=== PATIENT | female | born 1950 | race Caucasian/White ===

== ENCOUNTER 2022-08-07 13:48 | Outpatient (OUT) | payer MEDICARE, OTHER, SELFPAY ==
--- NOTE | 2022-08-07 14:36 | CA_ITS ---
Patient: LEO DIANE Exam Date: 08/07/2022 : 1950 Gender:F Ordering : JIMI THOMPSON Admission #: Family : Order #: [id number] CLICK HERE TO VIEW EXAM ECHOCARDIOGRAM REPORT PROCEDURE: CARDIO PULMONARY ECHO LIMITED STUDY INDICATIONS: CHF, pacemaker COMPARISON: None. DESCRIPTION: Limited ECHOCARDIOGRAM Real-time transthoracic echocardiography with 2D and M-mode performed. QUALITY: Technical quality was good. LEFT VENTRICLE: Normal chamber size. Mild concentric left ventricular hypertrophy. LV EF: Normal left ventricular ejection fraction, (>55%). DIASTOLIC: ATRIAL SEPTUM: LEFT ATRIUM: Severe dilatation. RIGHT ATRIUM: Moderate dilatation. RIGHT VENTRICLE: Mild dilatation. Normal systolic function. Pacer wire present. TRICUSPID VALVE: Normal mobility and thickness. MITRAL VALVE: Mildly thickened with normal mobility. There is no mitral annular calcification. AORTIC VALVE: Normal trileaflet appearance. Mildly calcified aortic valve. Mildly restricted leaflet mobility. AORTIC ROOT: Normal diameter and appearance. PULMONIC VALVE: Normal thickness and mobility. PERICARDIUM: No evidence of pericardial effusion. IVC: PLEURA: CONCLUSION: 1. Mild concentric left ventricular hypertrophy with normal systolic function. LVEF is 60-65%. 2. The right ventricle is mildly dilated with normal systolic function. 3. Moderate to severe biatrial dilatation. 4. No pericardial effusion. 5. Limited study performed with no Doppler interrogation, as requested. Adult Echocardiography Procedure Report Left Ventricle LVEDD (3.7 - 5.6 cm): 4.66 cm LVESD (2.2 - 4.0 cm): 3.08 cm LVIVS thickness (0.6 - 1.2 cm): 1.29 cm LVPW thickness (0.5 - 1.0 cm): 1.29 cm LVOT Diameter 2.10 cm Left Ventricular Ejection Fraction: 60-65 % Left Atrium LA Volume Index (2D A2C): 56080 mm3 Left Atrium Systolic Dimension: 4.80 cm Mitral Valve Right Ventricle Aorta AO Root Diam: 3.20 cm Aortic Valve Tricuspid Valve Pulmonic Valve Right Atrium Dictated by: Charly Lofton M.D. on 08/08/2022 at 17:33 Approved by: Charly Lofton M.D. on 08/08/2022 at 17:37
== END 2022-08-07 13:49 | disposition home or self-care (01) ==
LOC: CARD 13:48
PROVIDERS: PCP Family Medicine
DX: I50.41 Acute combined systolic (congestive) and diastolic (congestive) heart failure (principal)
CPT/HCPCS: 93308

== ENCOUNTER 2023-04-13 10:21 | Emergency (ER) | payer MEDICARE, OTHER, SELFPAY ==
[2023-04-13 10:28] VITALS: BP 162/97; PULSE 71; RESP 16; TEMP 36.6; O2SAT 96; BMI 27.8
--- OUTSIDE RECORDS SUMMARY | 2023-04-13 10:28 | XMS_ITS | CCD ---
Author Name Unknown Address [id number] [place] [address] Organization [facility] Care Team Providers Care Pantograph Operator Name Role Phone HOUSE, SR TY P Referring Unavailable HOUSE, SR TY Morel Primary Care Unavailable HOUSE, SR TY Morel Referring Unavailable HOUSE, SR TY Morel Primary Care Unavailable Joaquín Maria Unavailable Viviana Williamson Unavailable REGINO HERNADEZ Admitting Unavailable HOUSE, TY Referring Unavailable HOUSE, TY Primary Care Unavailable REGINO HERNADEZ Attending Unavailable HOUSE, TY Referring Unavailable HOUSE, TY Primary Care Unavailable REGINO HERNADEZ Attending Unavailable REGINO HERNADEZ Admitting Unavailable HOUSE, DR CARDONA Admitting Unavailable HOUSE, DR CARDONA Attending Unavailable HOUSE, DR CARDONA Primary Care Unavailable HOUSE, DR CARDONA Consulting Unavailable JIMI THOMPSON Admitting Unavailable JIMI THOMPSON Attending Unavailable HOUSE, DR CARDONA Primary Care Unavailable JIMI THOMPSON Consulting Unavailable REGINO HERNADEZ Admitting Unavailable REGINO HERNADEZ Attending Unavailable HOUSE, DR CARDONA Primary Care Unavailable REGINO HERNADEZ Consulting Unavailable ELANA ESTES Admitting Unavailable HOUSE, DR CARDONA Attending Unavailable HOUSE, DR CARDONA Primary Care Unavailable JACI MARSH Admitting Unavailable JACI MARSH Attending Unavailable HOUSE, DR CARDONA Primary Care Unavailable JACI MARSH Consulting Unavailable JACI MARSH Admitting Unavailable JACI MARSH Attending Unavailable HOUSE, DR CARDONA Primary Care Unavailable JACI MARSH Consulting Unavailable SALMA, JACI Admitting Unavailable JACI MARSH Attending Unavailable HOUSE, DR CARDONA Primary Care Unavailable JACI MARSH Consulting Unavailable HOUSE, DR CARDONA Primary Care Unavailable WHITT ., DR BRITTNY Chavez Admitting Unavailable WHITT ., DR BRITTNY Chavez Attending Unavailable WHITT ., DR BRITTNY Chavez Consulting Unavailable SHAIKH Naty LOJA Consulting Unavailable MED TUTTLE Consulting Unavailable ANNITA BRAN Consulting Unavailable SIXTO ., BISI Consulting Unavailable REGINO HERNADEZ Admitting Unavailable REGINO HERNADEZ Attending Unavailable DR TY THOMAS Primary Care Unavailable REGINO HERNADEZ Consulting Unavailable HALIE NICK Consulting Unavailable DO Ty Thomas Primary Care Provider MD Joaquín Maria Attending Provider MD Med Briggs Attending Provider NON STAFF Primary Care Provider UnavailMed Cunningham Unavailable Unavailable Primary Care Provider UnavailMed Cunningham Attending Unavailable NON STAFF Primary Care Unavailable Med Briggs Admitting Unavailable Ty Thomas Primary Care Unavailable Joaquín Maria Admitting Unavailable Joaquín Maria Attending Unavailable REGINO HERNADEZ Admitting Unavailable REGINO HERNADEZ Attending Unavailable JIMI THOMPSON Attending Unavailable JIMI THOMPSON Attending Unavailable JIMI THOMPSON Attending Unavailable JIMI THOMPSON Attending Unavailable REGINO HERNADEZ Referring Unavailable JEIR, REGINO Referring Unavailable JERI, REGINO Referring Unavailable ELIAS DOMINGO Attending Unavailable MED BRIGGS Referring Unavailable Allergies Allergy Classification Reported Allergen(s) Allergy Type Date of Onset Reaction(s) Facility (20 sources) Amiodarone Drug Allergy rash [facility] Other (20 sources) penicillAMINE Drug Allergy Unknown [facility] Other (3 sources) Penicillins; Translations: [PENICILLINS] Drug allergy (disorder) 6 [facility] Repository (1 source) Leucine Drug Allergy 7 [facility] Repository (1 source) Amiodarone Drug Allergy 4 [facility] Repository (1 source) penicillAMINE Drug Allergy 4 [facility] Medications Current Medications Medication Drug Class(es) Dates Sig (Normalized) Sig (Original) cholecalciferol 0.25 mg oral capsule (9 sources) Vitamin D Vitamin D3 250 M CG (08381 UT) as directed Orally Active dapagliflozin 10 mg oral tablet (7 sources) Sodium-Glucose Cotransporter 2 Inhibitor take 1 tablet by mouth every twenty-four hours Farxiga 10 MG 1 tablet Orally Once a day Dapagliflozin Active 24 hr dilTIAZem hydrochloride 360 mg extended release oral capsule (19 sources) Calcium Channel Tomas take 1 capsule by mouth every twenty-four hours dilTIAZem HCl ER Coated Beads 360 MG 1 capsule Orally Once a day Active 2 ml dupilumab 150 mg/ml auto-injector (2 sources) Interleukin-4 Receptor alpha Antagonist Dupixent 300 MG/2ML Subcutaneous for 28 Days Active Echinacea 400 MG (16 sources) Echinacea 400 MG as directed Orally Active furosemide 40 mg oral tablet (20 sources) Loop Diuretic take 1 tablet by mouth every twelve hours Furosemide 40 MG 1 tablet Orally BID Active take 1 tablet by alex th every twenty-four hours Furosemide 20 MG 1 tablet Orally qd Active Iron (16 sources) take 1 tablet by mouth once john y at mealtime take 1 tablet by alex th once daily at mealtime Iron 240 (27 Fe) MG 1 tablet with water or juice between meals Orally Once a day Active lisinopril 20 mg oral tablet (20 sources) Angiotensin Converting Enzyme Inhibitor take 1 tablet by mouth every twelve hours Lisinopril 20 MG 1 tablet Orally BID Active take 1 tablet by alex th every twenty-four hours Lisinopril 20 MG 1 tablet Orally Once a day Active magnesium oxide 400 mg oral tablet (10 sources) take 1 tablet by alex th every twenty-four hours Magnesium Oxide 400 MG 1 tablet Orally Once a day Active take 1 tablet by alex th every twelve hours Magnesium Oxide 400 MG 1 tablet Orally B ID Active 24 hr metoprolol succinate 100 mg extended release oral tablet (20 sources) beta-Adrenergic Tomas take 1 tablet by mouth every twenty-four hours Metoprolol Succinate ER 100 MG 1 tablet Orally Once a day Active take 1.5 tablets by mouth every twenty-four hours Metoprolol Succinate ER 100 MG 1.5 table t Orally Once a day Not-Taking potassium chloride 20 meq extended release oral tablet (10 sources) take 1 tablet by alex th every twelve hours Potassium Chloride ER 20 MEQ 1 tablet with food Orally Twice a day Active take 1 tablet by mouth every six hours Potassium Chloride ER 20 MEQ 1 tablet with food Orally QID Active rivaroxaban 20 mg oral tablet (20 sources) Factor Xa Inhibitor take 1 tablet by mouth every twenty-four hours Xarelto 20 MG 1 tablet with food Orally Once a day Rivaroxaban Active Semaglutide Sodium 0.3 mg/ 0.25 mL 0.25 mL (4 sources) Start: 09-19-19 23 Semaglutide Sodium 0.3 mg/ 0.25 mL 0.25 mL 0.25 mL Injection Once for 7 days Sep, Active Semaglutide Sodium 0.6 mg/ 0.5 mL 0.5 mL (2 sources) Start: 01-10-20 23 Semaglutide Sodium 0.6 mg/ 0.5 mL 0.5 mL 0.5 mL Injection 7 days Dec, Active 24 hr venlafaxine 150 mg extended release oral capsule (20 sources) Serotonin and Norepinephrine Reuptake Inhibitor take 1 capsule by mouth every twenty-four hours Venlafaxine HCl ER 150 MG 1 capsule with food Orally Once a day Active Louann-C (8 sources) Louann-C Active Vitamin B12 1000 MCG (16 sources) take 1 tablet by mouth once daily take 1 tablet by mouth once john y Vitamin B12 1000 MCG 1 tablet Orally Once a day Active Vitamin D3 250 MCG (97995 UT ) (7 sources) Vitamin D3 250 M CG (44992 UT) as directed Orally Active Completed/Discontinued Medications Medication Drug Class(es) Dates Sig (Normalized) Sig (Original) 0.25 mg, 0.5 mg dose 1.5 ml semaglutide 1.34 mg/ml pen injector (16 sources) Start: 08-23-2021 Ozempic (0.25 or 0.5 MG/DOSE) 2 MG/1.5ML 0.5 mg Subcutaneous weekly for 30 days Aug, Not-Taking Ozempic (0.25 or 0.5 MG/DOSE) 2 MG/1.5ML as directed Subcutaneous weekly for 30 days Not-Taking Problems Active Problems Problem Classification Problem Date Documented Da te Episodic/Chronic Cardiac dysrhythmias (20 sources) Atrial fibrillation; Translations: [Unspecified atrial fibrillation] Onset: 04-09-2021 Resolved: 09-27-2021 Chronic Chronic kidney disease (20 sources) Chronic kidney disease; Translations: [Chronic kidney disease, unspecified] Onset: 04-09-2021 Resolved: 09-27-2021 Chronic Conduction disorders (10 sources) Presence of cardiac pacemaker; Translations: [Cardiac pacemaker in situ] Onset: 01-22-2022 Chronic Congestive heart failure; nonhypertensive (18 sources) Acute on chronic systolic (congestive) heart failure; Translations: [Heart failure, unspecified] Onset: 03-28-2022 Chronic Diabetes mellitus without complication (9 sources) Prediabetes Onset: 05-15-2021 Resolved: 09-27-2021 Episodic Disorders of lipid metabolism (20 sources) Hypercholesterolemi a; Translations: [Pure hypercholesterolemi a, unspecified] Onset: 05-15-2021 Resolved: 09-27-2021 Chronic Essential hypertension (20 sources) Hypertensive disorder; Translations: [Essential (primary) hypertension] Onset: 04-09-2021 Resolved: 09-27-2021 Chronic Fluid and electrolyte disorders (1 source) Hypokalemia; Translations: [HYPOKALEMIA] Onset: 03-28-2022 Episodic Heart valve disorders (5 sources) Nonrheumatic mitral (valve) insufficiency; Translations: [Rheumatic tricuspid insufficiency] Onset: 08-19-2021 Chronic Hypertension with complications and secondary hypertension (3 sources) Hypertensive heart disease with heart failure; Translations: [HTN HEART DISEASE W/HEART FAIL] Onset: 03-22-2022 Chronic Mood disorders (20 sources) Major depression, single episode; Translations: [Major depressive disorder, single episode, unspecified] Onset: 04-09-2021 Resolved: 09-27-2021 Chronic Mood disorders (1 source) Mood disorders; Translations: [DEPRESSION UNSPECIFIED] Onset: 03-28-2022 Other aftercare (1 source) Other fci (current) drug therapy; Translations: [OTH RETIREMENT CURRENT DRUG THERAPY] Onset: 03-28-2022 Episodic Other aftercare (1 source) 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; Translations: [RETIREMENT CURRNT USE ANTICOAGULANTS] Onset: 03-28-2022 Episodic Other liver diseases (20 sources) Steatosis of liver; Translations: [Fatty (change of) liver, not elsewhere classified] Chronic Other liver diseases (11 sources) Fatty (change of) liver, not elsewhere classified; Translations: [FATTY CHANGE LIVER NEC] Onset: 04-09-2021 Resolved: 09-27-2021 Chronic Other lower respiratory disease (14 sources) Snoring; Translations: [SNORING] Onset: 04-09-2021 Resolved: 09-27-2021 Episodic Other lower respiratory disease (1 source) Hypoxemia; Translations: [HYPOXEMIA] Onset: 03-28-2022 Episodic Other non-traumatic joint disorders (3 sources) Pain in right wrist; Translations: [Pain in right wrist] Onset: 06-05-2018 Episodic Other nutritional; endocrine; and metabolic disorders (20 sources) Obese class I; Translations: [Body mass index (BMI) 33.0-33.9, adult] Chronic Other nutritional; endocrine; and metabolic disorders (20 sources) Metabolic syndrome X; Translations: [Metabolic syndrome] Chronic Other nutritional; endocrine; and metabolic disorders (1 source) Body mass index (BMI) 33.0-33.9, adult Onset: 04-09-2021 Resolved: 04-09-2021 Chronic Other nutritional; endocrine; and metabolic disorders (10 sources) Metabolic syndrome Onset: 04-09-2021 Resolved: 09-27-2021 Chronic Other nutritional; endocrine; and metabolic disorders (20 sources) Obesity; Translations: [Obesity, unspecified] Chronic Other nutritional; endocrine; and metabolic disorders (20 sources) Body mass index 40+ - severely obese; Translations: [Body mass index (BMI) 40.0-44.9, adult] Chronic Other nutritional; endocrine; and metabolic disorders (13 sources) Obesity, unspecified; Translations: [Obesity, unspecified] Onset: 04-19-2021 Resolved: 09-27-2021 Chronic Other nutritional; endocrine; and metabolic disorders (6 sources) Body mass index (BMI) 32.0-32.9, adult Onset: 04-19-2021 Resolved: 08-16-2021 Chronic Other nutritional; endocrine; and metabolic disorders (19 sources) Body mass index 30+ - obesity; Translations: [Body mass index (BMI) 32.0-32.9, adult] Chronic Other nutritional; endocrine; and metabolic disorders (1 source) Hypomagnesemia; Translations: [HYPOMAGNESEMIA] Onset: 03-28-2022 Chronic Other nutritional; endocrine; and metabolic disorders (4 sources) Binging; Translations: [Polyphagia] Episodic Other nutritional; endocrine; and metabolic disorders (20 sources) Polyphagia; Translations: [Binge eating] Onset: 04-09-2021 Resolved: 09-27-2021 Episodic Other nutritional; endocrine; and metabolic disorders (3 sources) Overweight Episodic Other nutritional; endocrine; and metabolic disorders (1 source) Body mass index (BMI) 29.0-29.9, adult Episodic Alina-; endo-; and myocarditis; cardiomyopathy (except that caused by tuberculosis or sexually transmitted disease) (1 source) Other cardiomyopathies; Translations: [OTHER CARDIOMYOPATHIES] Onset: 03-28-2022 Chronic Residual codes; unclassified (6 sources) Obstructive sleep apnea (adult) (pediatric); Translations: [OBSTRUCTIVE SLEEP APNEA] Onset: 10-09-2021 Chronic Residual codes; unclassified (2 sources) Obstructive sleep apnea syndrome; Translations: [Obstructive sleep apnea (adult) (pediatric)] Chronic Residual codes; unclassified (2 sources) Sleep apnea; Translations: [Sleep apnea, unspecified] Chronic Residual codes; unclassified (1 source) Obstructive sleep apnea (adult)(pediatric); Translations: [Obstructive sleep apnea (adult) (pediatric)] Onset: 03-04-2023 Chronic Residual codes; unclassified (1 source) Acquired absence of other specified parts of digestive tract; Translations: [ACQ ABSENCE OTH PART DIGESTV TRACT] Onset: 03-28-2022 Episodic Residual codes; unclassified (1 source) Other specified health status Episodic Screening and history of mental health and substance abuse codes (1 source) Personal history of nicotine dependence; Translations: [PERSONAL HISTORY OF NICOTINE DEPEND] Onset: 03-28-2022 Episodic Unclassified (1 source) CONTACT W/AND (SUSP) EXPOS COVID-19; Translations: [CONTACT W/AND (SUSP) EXPOS COVID-19] Onset: 03-28-2022 Unclassified (1 source) Longstanding persistent atrial fibrillation; Translations: [LONGSTNDNG PERSIST ATRIAL FIBRILLTN] Onset: 03-28-2022 Past or Other Problems Problem Classification Problem Date Documented Da te Episodic/Chronic Malaise and fatigue (1 source) Other fatigue; Translations: [OTHER FATIGUE] Onset: 09-08-2021 Episodic Results Test Name Value Interpretation Reference Range Facility Office Visiton 03-25-2023 Follow-up visit [id number] Penny Diane 1950 F Date Provider Department Center 03/25/2023 Lara6-JIMI THOMPSON CARD [facility] Family History Problem Relation Age of Onset Hypertension Mother Family Status - Relation Status Age at Mother Level of Service:67388 [place] OFFICE/OUTPATIENT ESTABLISHED MOD MDM 30 MIN [facility] Office Visiton 08-21-2022 Follow-up visit [id number] Penny Diane 1950 F Date Provider Department Center 08/21/2022 JIMI VIRGEN Family History Problem Relation Age of Onset Hypertension Mother Family Status - Relation Status Age at Mother Level of Service:30575 [place] OFFICE/OUTPATIENT ESTABLISHED MOD MDM 30-39 MIN Reason for Visit and Comments: Follow-up [400075] - 2 month follow up [facility] A1C HEMOGLOBINon 08-06-2022 HbA1c (Bld) [Mass fraction] 5.4 % [facility] Other HbA1c (Bld) [Mass fraction]o n 08-06-2022 A1C HEMOGLOBIN [facility] Other Office Visiton 06-19-2022 Follow-up visit [id number] Penny Diane 1950 Date Provider Department Center 06/19/2022 JIMI VIRGEN Family History Problem Relation Age of Onset Hypertension Mother Family Status - Relation Status Age at Mother Level of Service:18360 [place] OFFICE/OUTPATIENT ESTABLISHED MOD MDM 30-39 MIN [facility] PROF CHEM 8 (BAS METB)on Anion gap [Moles/Vol] 11.7 mmol/L Normal [facility] Comment on above: Performed By: #### B MP #### [facility] [address] [place] [address] Dr. Baldemar Rodriguez Calcium [Mass/Vol] 9.3 mg/dL Normal 8.5-10.1 [facility] Comment on above: Performed By: #### B MP #### [facility] [address] [address] [address] Baldemar Rodriguez Chloride [Moles/Vol] 106 mmol/L Normal 98-107 [facility] Comment on above: Performed By: #### B MP #### [facility] [address] [address] [address] Baldemar Rodriguez CO2 [Moles/Vol] 31.2 mmol/L Normal 21.0-32.0 [facility] Comment on above: Performed By: #### B MP #### [facility] [address] [address] [address] Baldemar Rodriguez Creatinine [Mass/Vol] 0.92 mg/dL Normal 0.55-1.02 [facility] Comment on above: Performed By: #### B MP #### [facility] [address] [address] [address] Baldemar Rodriguez EGFR-AF BRITISH >60 Normal >=60 [facility] Comment on above: Performed By: #### B MP #### [facility] [address] [address] [address] Baldemar Rodriguez EGFR-NON AF BRITISH =60 Normal >=60 [facility] Comment on above: Performed By: #### B MP #### [facility] [address] [address] [address] Baldemar Rodriguez Glucose [Mass/Vol] 96 mg/dL Normal 74-106 [facility] Comment on above: Performed By: #### B MP #### [facility] [address] [address] [address] Baldemar Rodriguez Potassium [Moles/Vol] 3.9 mmol/L Normal 3.5-5.1 [facility] Comment on above: Performed By: #### B MP #### [facility] [address] [address] [address] Baldemar Rodriguez Sodium [Moles/Vol] 145 mmol/L Normal 136-145 [facility] Comment on above: Performed By: #### B MP #### [facility] [address] [address] [address] Baldemar Rodriguez Urea nitrogen [Mass/Vol] 13.0 mg/dL Normal 7.0-18.0 [facility] Comment on above: Performed By: #### B MP #### [facility] [address] [address] [address] Baldemar Rodriguez Urea nitrogen/Creatinine [Mass ratio] 14.1 mg/mg Normal [facility] Comment on above: Performed By: #### B MP #### [facility] [address] [address] [address] Baldemar Rodriguez 36on 04-24-2022 36 Patient can try benadryl, if no relief or she begins to experience SOB, tongue swelling, throat swelling, scratchy throat then should report to ED [facility] 36 Patient called c/o red face and neck. Says they itch, no sores. She had AV node ablation 2 days ago, on 04/22. She said she hasn't started any new medications recently. No SOB. Any advice? Thanks. [facility] HPon 04-22-2022 HP H&P reviewed. The patient was examined and there are no changes to the H&P. [facility] Office Visiton 04-19-2022 Follow-up visit [id number] Penny Diane 1950 F Date Provider Department Center 04/19/2022 JIMI VIRGEN [facility] Family History Problem Relation Age of Onset Hypertension Mother Family Status - Relation Status Age at Mother Level of Service:38580 [place] OFFICE/OUTPATIENT ESTABLISHED MOD MDM 30-39 MIN Reason for Visit and Comments: Atrial Fibrillation [80] [facility] PROF CHEM 8 (BAS METB)on Anion gap [Moles/Vol] 8.8 mmol/L Normal [facility] Comment on above: Performed By: #### B MP #### [facility] [address] [address] [address] Baldemar Rodriguez Calcium [Mass/Vol] 9.5 mg/dL Normal 8.5-10.1 [facility] Comment on above: Performed By: #### B MP #### [facility] [address] [address] [address] Baldemar Rodriguez Chloride [Moles/Vol] 103 mmol/L Normal 98-107 [facility] Comment on above: Performed By: #### B MP #### [facility] [address] [address] [address] Baldemar Rodriguez CO2 [Moles/Vol] 32.5 mmol/L Critically high 21.0-32.0 [facility] Comment on above: Performed By: #### B MP #### [facility] [address] [address] [address] Baldemar Rodriguez Creatinine [Mass/Vol] 0.92 mg/dL Normal 0.55-1.02 [facility] Comment on above: Performed By: #### B MP #### [facility] [address] [address] [address] Baldemar Rodriguez EGFR-AF BRITISH >60 Normal >=60 [facility] Comment on above: Performed By: #### B MP #### [facility] [address] [address] [address] Baldemar Rodriguez EGFR-NON AF BRITISH =60 Normal >=60 [facility] Comment on above: Performed By: #### B MP #### [facility] [address] [address] [address] Baldemar Rodriguez Glucose [Mass/Vol] 79 mg/dL Normal 74-106 [facility] Comment on above: Performed By: #### B MP #### [facility] [address] [address] [address] Baldemar Rodriguez Potassium [Moles/Vol] 4.3 mmol/L Normal 3.5-5.1 [facility] Comment on above: Performed By: #### B MP #### [facility] [address] [address] [address] Baldemar Rodriguez Sodium [Moles/Vol] 140 mmol/L Normal 136-145 [facility] Comment on above: Performed By: #### B MP #### [facility] [address] [address] [address] Baldemar Rodriguez Urea nitrogen [Mass/Vol] 19.0 mg/dL Critically high 7.0-18.0 [facility] Comment on above: Performed By: #### B MP #### [facility] [address] [address] [address] Baldemar Rodriguez Urea nitrogen/Creatinine [Mass ratio] 20.7 mg/mg Normal [facility] Comment on above: Performed By: #### B MP #### [facility] [address] [address] [address] Baldemar Rodriguez CBC AUTO DIFFon 03-26-2022 BASO # 0.0 103/ul Normal 0.0-0.1 [facility] Comment on above: Performed By: #### B MP #### [facility] [address] [place] [address] Dr. Baldemar Rodriguez Basophils/100 WBC (Bld) 0.6 % Normal 0.2-2.0 [facility] Comment on above: Performed By: #### B MP #### [facility] [address] [place] [address] Dr. Baldemar Rodriguez EO # 0.3 103/ul Normal 0.0-0.7 [facility] Comment on above: Performed By: #### B MP #### [facility] [address] [place] [address] Dr. Baldemar Rodriguez Eosinophils/100 WBC (Bld) 4.7 % Normal 0.9-7.0 [facility] Comment on above: Performed By: #### B MP #### [facility] [address] [place] [address] Dr. Baldemar Rodriguez Erythrocyte distribution width (RBC) [Ratio] 14.7 % Normal 11.0-15.0 [facility] Comment on above: Performed By: #### B MP #### [facility] [address] [place] [address] Dr. Baldemar Rodriguez Hematocrit (Bld) [Volume fraction] 39.6 % Normal 36.0-48.0 [facility] Comment on above: Performed By: #### B MP #### [facility] [address] [place] [address] Dr. Baldemar Rodriguez Hemoglobin (Bld) [Mass/Vol] 12.8 g/dL Normal 12.0-16.0 [facility] Comment on above: Performed By: #### B MP #### [facility] [address] [place] [address] Dr. Baldemar Rodriguez IG # 0.02 10e3/ul Normal 0.00-0.03 [facility] Comment on above: Performed By: #### B MP #### [facility] [address] [place] [address] Dr. Baldemar Rodriguez IG % 0.3 % Normal 0.0-0.5 [facility] Comment on above: Performed By: #### B MP #### [facility] [address] [place] [address] Dr. Baldemar Rodriguez LYMPH # 2.3 103/ul Normal 1.2-3.8 [facility] Comment on above: Performed By: #### B MP #### [facility] [address] [place] [address] Dr. Baldemar Rodriguez Lymphocytes/100 WBC (Bld) 33.9 % Normal 20.5-60.0 [facility] Comment on above: Performed By: #### B MP #### [facility] [address] [place] [address] Dr. Baldemar Rodriguez MANUAL DIFF REQ NO Normal [facility] Comment on above: Performed By: #### B MP #### [facility] [address] [place] [address] Dr. Baldemar Rodriguez MCH (RBC) [Entitic mass] 30.0 pg Normal 26.7-34.0 [facility] Comment on above: Performed By: #### B MP #### [facility] [address] [place] [address] Dr. Baldemar Rodriguez MCHC (RBC) [Mass/Vol] 32.3 g/dL Normal 29.9-35.2 [facility] Comment on above: Performed By: #### B MP #### [facility] [address] [place] [address] Dr. Baldemar Rodriguez MCV (RBC) [Entitic vol] 92.7 fL Normal 81.0-99.0 [facility] Comment on above: Performed By: #### B MP #### [facility] [address] [place] [address] Dr. Baldemar Rodriguez MONO # 0.6 103/ul Normal 0.3-0.8 [facility] Comment on above: Performed By: #### B MP #### [facility] [address] [place] [address] Dr. Baldemar Rodriguez Monocytes/100 WBC (Bld) 8.7 % Normal 1.7-12.0 [facility] Comment on above: Performed By: #### B MP #### [facility] [address] [place] [address] Dr. Baldemar Rodriguez NEUT # 3.4 103/ul Normal 1.4-6.5 [facility] Comment on above: Performed By: #### B MP #### [facility] [address] [place] [address] Dr. Baldemar Rodriguez Neutrophils/100 WBC (Bld) 51.8 % Normal 43.0-75.0 [facility] Comment on above: Performed By: #### B MP #### [facility] [address] [place] [address] Dr. Baldemar Rodriguez Platelet mean volume (Bld) [Entitic vol] 9.6 fL Normal 9.5-13.5 [facility] Comment on above: Performed By: #### B MP #### [facility] [address] [place] [address] Dr. Baldemar Rodriguez PLT 233 103/ul Normal 150-450 [facility] Comment on above: Performed By: #### B MP #### [facility] [address] [place] [address] Dr. Baldemar Rodriguez RBC 4.27 106/ul Normal 4.20-5.40 [facility] Comment on above: Performed By: #### B MP #### [facility] [address] [place] [address] Dr. Baldemar Rodriguez WBC 6.6 103/ul Normal 4.0-11.0 [facility] Comment on above: Performed By: #### B MP #### [facility] [address] [place] [address] Dr. Baldemar Rodriguez PROF CHEM 8 (BAS METB)on Anion gap [Moles/Vol] 9.2 mmol/L Normal [facility] Comment on above: Performed By: #### B MP #### [facility] [address] [place] [address] Dr. Baldemar Rodriguez Calcium [Mass/Vol] 9.2 mg/dL Normal 8.5-10.1 [facility] Comment on above: Performed By: #### B MP #### [facility] [address] [address] [address] Baldemar Rodriguez Chloride [Moles/Vol] 102 mmol/L Normal 98-107 [facility] Comment on above: Performed By: #### B MP #### [facility] [address] [address] [address] Baldemar Rodriguez CO2 [Moles/Vol] 35.8 mmol/L Critically high 21.0-32.0 [facility] Comment on above: Performed By: #### B MP #### [facility] [address] [place] [address] Dr. Baldemar Rodriguez Creatinine [Mass/Vol] 0.91 mg/dL Normal 0.55-1.02 [facility] Comment on above: Performed By: #### B MP #### [facility] [address] [place] [address] Dr. Baldemar Rodriguez EGFR-AF BRITISH >60 Normal >=60 [facility] Comment on above: Performed By: #### B MP #### [facility] [address] [address] [address] Baldemar Rodriguez EGFR-NON AF BRITISH >60 Normal >=60 [facility] Comment on above: Performed By: #### B MP #### [facility] [address] [address] [address] Baldemar Rodriguez Glucose [Mass/Vol] 93 mg/dL Normal 74-106 [facility] Comment on above: Performed By: #### B MP #### [facility] [address] [address] [address] Baldemar Rodriguez Potassium [Moles/Vol] 3.0 mmol/L Critically low 3.5-5.1 [facility] Comment on above: Performed By: #### B MP #### [facility] [address] [address] [address] Baldemar Rodriguez Sodium [Moles/Vol] 144 mmol/L Normal 136-145 [facility] Comment on above: Performed By: #### B MP #### [facility] [address] [address] [address] Baldemar Rodriguez Urea nitrogen [Mass/Vol] 19.0 mg/dL Critically high 7.0-18.0 [facility] Comment on above: Performed By: #### B MP #### [facility] [address] [place] [address] Dr. Baldemar Rodriguez Urea nitrogen/Creatinine [Mass ratio] 20.9 mg/mg Normal [facility] Comment on above: Performed By: #### B MP #### [facility] [address] [place] [address] Dr. Baldemar Rodriguez CBC AUTO DIFFon 03-25-2022 BASO # 0.0 103/ul Normal 0.0-0.1 [facility] Comment on above: Performed By: #### B MP #### [facility] [address] [place] [address] Dr. Baldemar Rodriguez Basophils/100 WBC (Bld) 0.5 % Normal 0.2-2.0 [facility] Comment on above: Performed By: #### B MP #### [facility] [address] [place] [address] Dr. Baldemar Rodriguez EO # 0.3 103/ul Normal 0.0-0.7 [facility] Comment on above: Performed By: #### B MP #### [facility] [address] [place] [address] Dr. Baldemar Rodriguez Eosinophils/100 WBC (Bld) 3.2 % Normal 0.9-7.0 [facility] Comment on above: Performed By: #### B MP #### [facility] [address] [place] [address] Dr. Baldemar Rodriguez Erythrocyte distribution width (RBC) [Ratio] 14.7 % Normal 11.0-15.0 [facility] Comment on above: Performed By: #### B MP #### [facility] [address] [place] [address] Dr. Baldemar Rodriguez Hematocrit (Bld) [Volume fraction] 40.8 % Normal 36.0-48.0 [facility] Comment on above: Performed By: #### B MP #### [facility] [address] [place] [address] Dr. Baldemar Rodriguez Hemoglobin (Bld) [Mass/Vol] 13.4 g/dL Normal 12.0-16.0 [facility] Comment on above: Performed By: #### B MP #### [facility] [address] [place] [address] Dr. Baldemar Rodriguez IG # 0.02 10e3/ul Normal 0.00-0.03 [facility] Comment on above: Performed By: #### B MP #### [facility] [address] [place] [address] Dr. Baldemar Rodriguez IG % 0.2 % Normal 0.0-0.5 [facility] Comment on above: Performed By: #### B MP #### [facility] [address] [place] [address] Dr. Baldemar Rodriguez LYMPH # 2.0 103/ul Normal 1.2-3.8 [facility] Comment on above: Performed By: #### B MP #### [facility] [address] [place] [address] Dr. Baldemar Rodriguez Lymphocytes/100 WBC (Bld) 23.3 % Normal 20.5-60.0 [facility] Comment on above: Performed By: #### B MP #### [facility] [address] [place] [address] Dr. Baldemar Rodriguez MANUAL DIFF REQ NO Normal [facility] Comment on above: Performed By: #### B MP #### [facility] [address] [place] [address] Dr. Baldemar Rodriguez MCH (RBC) [Entitic mass] 30.3 pg Normal 26.7-34.0 [facility] Comment on above: Performed By: #### B MP #### [facility] [address] [place] [address] Dr. Baldemar Rodriguez MCHC (RBC) [Mass/Vol] 32.8 g/dL Normal 29.9-35.2 [facility] Comment on above: Performed By: #### B MP #### [facility] [address] [address] [address] Baldemar Rodriguez MCV (RBC) [Entitic vol] 92.3 fL Normal 81.0-99.0 [facility] Comment on above: Performed By: #### B MP #### [facility] [address] [address] [address] Baldemar Rodriguez MONO # 0.6 103/ul Normal 0.3-0.8 [facility] Comment on above: Performed By: #### B MP #### [facility] [address] [address] [address] Baldemar Rodriguez Monocytes/100 WBC (Bld) 7.5 % Normal 1.7-12.0 [facility] Comment on above: Performed By: #### B MP #### [facility] [address] [place] [address] Dr. Baldemar Rodriguez NEUT # 5.5 103/ul Normal 1.4-6.5 [facility] Comment on above: Performed By: #### B MP #### [facility] [address] [address] [address] Baldemar Rodriguez Neutrophils/100 WBC (Bld) 65.3 % Normal 43.0-75.0 [facility] Comment on above: Performed By: #### B MP #### [facility] [address] [address] [address] Baldemar Rodriguez Platelet mean volume (Bld) [Entitic vol] 9.4 fL Critically low 9.5-13.5 [facility] Comment on above: Performed By: #### B MP #### [facility] [address] [address] [address] Baldemar Rodriguez PLT 258 103/ul Normal 150-450 [facility] Comment on above: Performed By: #### B MP #### [facility] [address] [address] [address] Baldemar Rodriguez RBC 4.42 106/ul Normal 4.20-5.40 [facility] Comment on above: Performed By: #### B MP #### [facility] [address] [address] [address] Baldemar Rodriguez WBC 8.4 103/ul Normal 4.0-11.0 [facility] Comment on above: Performed By: #### B MP #### [facility] [address] [address] [address] Baldemar Rodriguez POTASSIUMon 03-25-2022 Potassium [Moles/Vol] 2.7 mmol/L Critically low 3.5-5.1 [facility] Comment on above: Performed By: #### B MP #### [facility] [address] [address] [address] Baldemar Rodriguez PROF CHEM 8 (BAS METB)on Anion gap [Moles/Vol] 9.8 mmol/L Normal [facility] Comment on above: Performed By: #### B MP #### [facility] [address] [place] [address] Dr. Baldemar Rodriguez Calcium [Mass/Vol] 9.0 mg/dL Normal 8.5-10.1 [facility] Comment on above: Performed By: #### B MP #### [facility] [address] [place] [address] Dr. Baldemar Rodriguez Chloride [Moles/Vol] 100 mmol/L Normal 98-107 [facility] Comment on above: Performed By: #### B MP #### [facility] [address] [place] [address] Dr. Baldemar Rodriguez CO2 [Moles/Vol] 35.8 mmol/L Critically high 21.0-32.0 [facility] Comment on above: Performed By: #### B MP #### [facility] [address] [address] [address] Baldemar Rodriguez Creatinine [Mass/Vol] 0.85 mg/dL Normal 0.55-1.02 [facility] Comment on above: Performed By: #### B MP #### [facility] [address] [place] [address] Dr. Baldemar Rodriguez EGFR-AF BRITISH >60 Normal >=60 [facility] Comment on above: Performed By: #### B MP #### [facility] [address] [address] [address] Baldemar Rodriguez EGFR-NON AF BRITISH >60 Normal >=60 [facility] Comment on above: Performed By: #### B MP #### [facility] [address] [address] [address] Baldemar Rodriguez Glucose [Mass/Vol] 100 mg/dL Normal 74-106 [facility] Comment on above: Performed By: #### B MP #### [facility] [address] [address] [address] Baldemar Rodriguez Potassium [Moles/Vol] 2.5 mmol/L Critically low 3.5-5.1 [facility] Comment on above: Performed By: #### B MP #### [facility] [address] [address] [address] Baldemar oRdriguez Sodium [Moles/Vol] 142 mmol/L Normal 136-145 [facility] Comment on above: Performed By: #### B MP #### [facility] [address] [address] [address] Baldemar Rodriguez Urea nitrogen [Mass/Vol] 15.0 mg/dL Normal 7.0-18.0 [facility] Comment on above: Performed By: #### B MP #### [facility] [address] [place] [address] Dr. Baldemar Rodriguez Urea nitrogen/Creatinine [Mass ratio] 17.6 mg/mg Normal [facility] Comment on above: Performed By: #### B MP #### [facility] [address] [place] [address] Dr. Baldemar Rodriguez CBC AUTO DIFFon 03-24-2022 BASO # 0.0 103/ul Normal 0.0-0.1 [facility] Comment on above: Performed By: #### C JANIE GUNN, BNP #### [facility] [address] [address] [address] Baldemar Rodriguez Basophils/100 WBC (Bld) 0.4 % Normal 0.2-2.0 [facility] Comment on above: Performed By: #### C JANIE GUNN, BNP #### [facility] [address] [place] [address] Dr. Baldemar Rodriguez EO # 0.1 103/ul Normal 0.0-0.7 [facility] Comment on above: Performed By: #### C MP, CMADM, BNP #### [facility] [address] [place] [address] Dr. Baldemar Rodriguez Eosinophils/100 WBC (Bld) 1.2 % Normal 0.9-7.0 [facility] Comment on above: Performed By: #### C MP, CMADM, BNP #### [facility] [address] [place] [address] Dr. Baldemar Rodriguez Erythrocyte distribution width (RBC) [Ratio] 14.9 % Normal 11.0-15.0 [facility] Comment on above: Performed By: #### C MP, CMADM, BNP #### [facility] [address] [place] [address] Dr. Baldemar Rodriguez Hematocrit (Bld) [Volume fraction] 36.3 % Normal 36.0-48.0 [facility] Comment on above: Performed By: #### C MP, CMADM, BNP #### [facility] [address] [place] [address] Dr. Baldemar Rodriguez Hemoglobin (Bld) [Mass/Vol] 11.9 g/dL Critically low 12.0-16.0 [facility] Comment on above: Performed By: #### C MP, CMADM, BNP #### [facility] [address] [place] [address] Dr. Baldemar Rodriguez IG # 0.04 10e3/ul Critically high 0.00-0.03 [facility] Comment on above: Performed By: #### C MP, CMADM, BNP #### [facility] [address] [place] [address] Dr. Baldemar Rodriguez IG % 0.4 % Normal 0.0-0.5 [facility] Comment on above: Performed By: #### C MP, CMADM, BNP #### [facility] [address] [place] [address] Dr. Baldemar Rodriguez LYMPH # 2.5 103/ul Normal 1.2-3.8 [facility] Comment on above: Performed By: #### C MP, CMADM, BNP #### [facility] [address] [place] [address] Dr. Baldemar Rodriguez Lymphocytes/100 WBC (Bld) 22.3 % Normal 20.5-60.0 [facility] Comment on above: Performed By: #### C MP, CMADM, BNP #### [facility] [address] [place] [address] Dr. Baldemar Rodriguez MANUAL DIFF REQ NO Normal [facility] Comment on above: Performed By: #### C MP, CMADM, BNP #### [facility] [address] [place] [address] Dr. Baldemar Rodriguez MCH (RBC) [Entitic mass] 30.4 pg Normal 26.7-34.0 [facility] Comment on above: Performed By: #### C MP, CMADM, BNP #### [facility] [address] [place] [address] Dr. Baldemar Rodriguez MCHC (RBC) [Mass/Vol] 32.8 g/dL Normal 29.9-35.2 [facility] Comment on above: Performed By: #### C MP, CMADM, BNP #### [facility] [address] [place] [address] Dr. Baldemar Rodriguez MCV (RBC) [Entitic vol] 92.6 fL Normal 81.0-99.0 [facility] Comment on above: Performed By: #### C MP, CMADM, BNP #### [facility] [address] [place] [address] Dr. Baldemar Rodriguez MONO # 0.7 103/ul Normal 0.3-0.8 [facility] Comment on above: Performed By: #### C MP, CMADM, BNP #### [facility] [address] [place] [address] Dr. Baldemar Rodriguez Monocytes/100 WBC (Bld) 6.1 % Normal 1.7-12.0 [facility] Comment on above: Performed By: #### C MP, CMADM, BNP #### [facility] [address] [address] [address] Baldemar Rodriguez NEUT # 7.7 103/ul Critically high 1.4-6.5 [facility] Comment on above: Performed By: #### C MP, CMADM, BNP #### [facility] [address] [address] [address] Baldemar Rodriguez Neutrophils/100 WBC (Bld) 69.6 % Normal 43.0-75.0 [facility] Comment on above: Performed By: #### C MP, CMADM, BNP #### [facility] [address] [address] [address] Baldemar Rodriguez Platelet mean volume (Bld) [Entitic vol] 9.5 fL Normal 9.5-13.5 [facility] Comment on above: Performed By: #### C MP, CMADM, BNP #### [facility] [address] [address] [address] Baldemar Rodriguez PLT 237 103/ul Normal 150-450 [facility] Comment on above: Performed By: #### C MP, CMADM, BNP #### [facility] [address] [address] [address] Baldemar Rodriguez RBC 3.92 106/ul Critically low 4.20-5.40 [facility] Comment on above: Performed By: #### C MP, CMADM, BNP #### [facility] [address] [address] [address] Baldemar Rodriguez WBC 11.0 103/ul Normal 4.0-11.0 [facility] Comment on above: Performed By: #### C MP, CMADM, BNP #### [facility] [address] [address] [address] Baldemar Rodriguez PROF CHEM 8 (BAS METB)on Anion gap [Moles/Vol] 11.5 mmol/L Normal [facility] Comment on above: Performed By: #### B MP #### [facility] [address] [place] [address] Dr. Baldemar Rodriguez Calcium [Mass/Vol] 9.2 mg/dL Normal 8.5-10.1 [facility] Comment on above: Performed By: #### B MP #### [facility] [address] [address] [address] Baldemar Rodriguez Chloride [Moles/Vol] 106 mmol/L Normal 98-107 [facility] Comment on above: Performed By: #### B MP #### [facility] [address] [address] [address] Baldemar Rodriguez CO2 [Moles/Vol] 29.8 mmol/L Normal 21.0-32.0 [facility] Comment on above: Performed By: #### B MP #### [facility] [address] [place] [address] Dr. Baldemar Rodriguez Creatinine [Mass/Vol] 0.81 mg/dL Normal 0.55-1.02 [facility] Comment on above: Performed By: #### B MP #### [facility] [address] [address] [address] Baldemar Rodriguez EGFR-AF BRITISH >60 Normal >=60 [facility] Comment on above: Performed By: #### B MP #### [facility] [address] [place] [address] Dr. Baldemar Rodriguez EGFR-NON AF BRITISH >60 Normal >=60 [facility] Comment on above: Performed By: #### B MP #### [facility] [address] [address] [address] Baldemar Rodriguez Glucose [Mass/Vol] 102 mg/dL Normal 74-106 [facility] Comment on above: Performed By: #### B MP #### [facility] [address] [place] [address] Dr. Baldemar Rodriguez Potassium [Moles/Vol] 3.3 mmol/L Critically low 3.5-5.1 [facility] Comment on above: Performed By: #### B MP #### [facility] [address] [place] [address] Dr. Baldemar Rodriguez Sodium [Moles/Vol] 144 mmol/L Normal 136-145 [facility] Comment on above: Performed By: #### B MP #### [facility] [address] [place] [address] Dr. Baldemar Rodriguez Urea nitrogen [Mass/Vol] 17.0 mg/dL Normal 7.0-18.0 [facility] Comment on above: Performed By: #### B MP #### [facility] [address] [place] [address] Dr. Baldemar Rodriguez Urea nitrogen/Creatinine [Mass ratio] 21.0 mg/mg Normal [facility] Comment on above: Performed By: #### B MP #### [facility] [address] [place] [address] Dr. Baldemar Rodriguez CBC AUTO DIFFon 03-23-2022 BASO # 0.0 103/ul Normal 0.0-0.1 [facility] Comment on above: Performed By: #### C BC #### [facility] [address] [place] [address] Dr. Baldemar Rodriguez Basophils/100 WBC (Bld) 0.0 % Critically low 0.2-2.0 [facility] Comment on above: Performed By: #### C BC #### [facility] [address] [place] [address] Dr. Baldemar Rodriguez EO # 0.0 103/ul Normal 0.0-0.7 [facility] Comment on above: Performed By: #### C BC #### [facility] [address] [place] [address] Dr. Baldemar Rodriguez Eosinophils/100 WBC (Bld) 0.0 % Critically low 0.9-7.0 [facility] Comment on above: Performed By: #### C BC #### [facility] [address] [place] [address] Dr. Baldemar Rodriguez Erythrocyte distribution width (RBC) [Ratio] 14.6 % Normal 11.0-15.0 [facility] Comment on above: Performed By: #### C BC #### [facility] [address] [place] [address] Dr. Baldemar Rodriguez Hematocrit (Bld) [Volume fraction] 34.1 % Critically low 36.0-48.0 [facility] Comment on above: Performed By: #### C BC #### [facility] [address] [address] [address] Baldemar Rodriguez Hemoglobin (Bld) [Mass/Vol] 11.0 g/dL Critically low 12.0-16.0 [facility] Comment on above: Performed By: #### C BC #### [facility] [address] [address] [address] Baldemar Rodriguez IG # 0.03 10e3/ul Normal 0.00-0.03 [facility] Comment on above: Performed By: #### C BC #### [facility] [address] [address] [address] Baldemar Rodriguez IG % 0.7 % Critically high 0.0-0.5 [facility] Comment on above: Performed By: #### C BC #### [facility] [address] [address] [address] Baldemar Rodriguez LYMPH # 0.9 103/ul Critically low 1.2-3.8 [facility] Comment on above: Performed By: #### C BC #### [facility] [facility] [address] [address] [address] Baldemar Rodriguez Lymphocytes/100 WBC (Bld) 20.7 % Normal 20.5-60.0 [facility] Comment on above: Performed By: #### C BC #### [facility] [address] [address] [address] Baldemar Rodriguez MANUAL DIFF REQ NO Normal [facility] Comment on above: Performed By: #### C BC #### [facility] [address] [address] [address] Baldemar Rodriguez MCH (RBC) [Entitic mass] 30.5 pg Normal 26.7-34.0 [facility] Comment on above: Performed By: #### C BC #### [facility] [address] [address] [address] Baldemar Rodriguez MCHC (RBC) [Mass/Vol] 32.3 g/dL Normal 29.9-35.2 [facility] Comment on above: Performed By: #### C BC #### [facility] [address] [address] [address] Baldemar Rodriguez MCV (RBC) [Entitic vol] 94.5 fL Normal 81.0-99.0 [facility] Comment on above: Performed By: #### C BC #### [facility] [address] [address] [address] Baldemar Rodriguez MONO # 0.2 103/ul Critically low 0.3-0.8 [facility] Comment on above: Performed By: #### C BC #### [facility] [address] [address] [address] Baldemar Rodriguez Monocytes/100 WBC (Bld) 4.5 % Normal 1.7-12.0 [facility] Comment on above: Performed By: #### C BC #### [facility] [address] [address] [address] Baldemar Rodriguez NEUT # 3.2 103/ul Normal 1.4-6.5 [facility] Comment on above: Performed By: #### C BC #### [facility] [address] [address] [address] Baldemar Rodriguez Neutrophils/100 WBC (Bld) 74.1 % Normal 43.0-75.0 [facility] Comment on above: Performed By: #### C BC #### [facility] [address] [address] [address] Baldemar Rodriguez Platelet mean volume (Bld) [Entitic vol] 9.7 fL Normal 9.5-13.5 [facility] Comment on above: Performed By: #### C BC #### [facility] [address] [address] [address] Baldemar Rodriguez PLT 181 103/ul Normal 150-450 [facility] Comment on above: Performed By: #### C BC #### [facility] [address] [address] [address] Baldemar Rodriguez RBC 3.61 106/ul Critically low 4.20-5.40 [facility] Comment on above: Performed By: #### C BC #### [facility] [address] [place], [place] [address] Dr. Baldemar Rodriguez WBC 4.3 103/ul Normal 4.0-11.0 [facility] Comment on above: Performed By: #### C BC #### [facility] [address] [place], [place] [address] Dr. Baldemar Rodriguez CTA CHEST WO W CONon 023 CTA CHEST WO W CON CTA CHEST WO W CON CLINICAL: Shortness of breath. Elevated serum d-dimer, shortness of breath and cough. COMPARISON: 05/11/2020 TECHNIQUE: Thin section axial images were obtained from thoracic inlet to the diaphragms following the administration of intravenous contrast. CT angiographic reconstructions of the pulmonary arteries including multiple intensity projections in coronal and sagittal planes were performed. Dose reduction: mA and/or kV are were adjusted by automated exposure control software based upon patients height and weight. FINDINGS: Thoracic inlet and axillary structures are intact. No mediastinal or hilar adenopathy by CT criteria. 8mm pretracheal lymph node is within physiologic size limits. Heart size is mildly enlarged. No pericardial effusion. Pulmonary arterial tree is opacified and does not show filling defect to indicate pulmonary embolism. Limited upper abdominal images show no acute findings. Lung windows show moderate to large bilateral pleural effusions with associated compressive atelectasis in the lower lobes. Upper lungs show hazy and patchy groundglass opacification without definite localizing infiltrate, and a mosaic pattern suggestive of small airways disease. Pleural-based density in the lingular segment left upper lobe suggestive of atelectasis, and the pulmonary interstitium is diffusely prominent consistent with mild diffuse interstitial edema. Osseous structures show no acute traumatic or destructive lesion. IMPRESSION: 1. No evidence of pulmonary embolism. 2. Moderately large bilateral pleural effusions with associated compressive atelectasis in the lower lobes. Additional atelectasis left lingular segment. 3. Hazy groundglass opacities in the upper lobes bilaterally suggestive of small airways disease and mild interstitial edema. Electronically authenticated by: MED TUTTLE Date: 2022-03-23 15:31 Normal [facility] GLYCOHEMOGLOBIN A1Con 2022 ADA RECOMMENDATION SEE BELOW Normal [facility] Comment on above: Result Comment: ADA RECOMMENDED LIMIT 4.0 - 6.0 ADA THERAPEUTIC TARGET < 7.0 ACTION SUGGESTED > 7.0 Performed By: #### B MP #### [facility] [address] [address] [address] Baldemar Rodriguez Glucose [Mass/Vol] 114 mg/dL Normal [facility] Comment on above: Performed By: #### B MP #### [facility] [address] [address] [address] Baldemar Rodriguez HbA1c (Bld) [Mass fraction] 5.6 % Normal 4.5-6.2 [facility] Comment on above: Performed By: #### B MP #### [facility] [address] [place] [address] Dr. Baldemar Rodriguez MAGNESIUMon 03-23-2022 Magnesium [Mass/Vol] 1.7 mg/dL Critically low 1.8-2.4 [facility] Comment on above: Performed By: #### B MP #### [facility] [address] [place] [address] Dr. Baldemar Rodriguez PROF CHEM 8 (BAS METB)on Anion gap [Moles/Vol] 11.7 mmol/L Normal [facility] Comment on above: Performed By: #### C TOO GUNNDM, BNP #### [facility] [address] [place] [address] Dr. Baldemar Rodriguez Calcium [Mass/Vol] 9.0 mg/dL Normal 8.5-10.1 [facility] Comment on above: Performed By: #### C LUIS A CMADM, BNP #### [facility] [address] [address] [address] Baldemar Rodriguez Chloride [Moles/Vol] 103 mmol/L Normal 98-107 [facility] Comment on above: Performed By: #### C TOO GUNNDM, BNP #### [facility] [address] [place] [address] Dr. Baldemar Rodriguez CO2 [Moles/Vol] 28.6 mmol/L Normal 21.0-32.0 [facility] Comment on above: Performed By: #### C LUIS A CMADM, BNP #### [facility] [address] [place] [address] Dr. Baldemar Rodriguez Creatinine [Mass/Vol] 0.83 mg/dL Normal 0.55-1.02 [facility] Comment on above: Performed By: #### C MP, CMADM, BNP #### [facility] [address] [address] [address] Baldemar Rodriguez EGFR-AF BRITISH >60 Normal >=60 [facility] Comment on above: Performed By: #### C MP, CMADM, BNP #### [facility] [address] [address] [address] Baldemar Rodriguez EGFR-NON AF BRITISH >60 Normal >=60 [facility] Comment on above: Performed By: #### C MP CMADM, BNP #### [facility] [address] [address] [address] Baldemar Rodriguez Glucose [Mass/Vol] 115 mg/dL Critically high 74-106 [facility] Comment on above: Performed By: #### C MP CMADM, BNP #### [facility] [address] [address] [address] Baldemar Rodriguez Potassium [Moles/Vol] 3.3 mmol/L Critically low 3.5-5.1 [facility] Comment on above: Performed By: #### C MP CMADM, BNP #### [facility] [address] [address] [address] Baldemar Rodriguez Sodium [Moles/Vol] 140 mmol/L Normal 136-145 [facility] Comment on above: Performed By: #### C MP, CMADM, BNP #### [facility] [address] [address] [address] Baldemar Rodriguez Urea nitrogen [Mass/Vol] 14.0 mg/dL Normal 7.0-18.0 [facility] Comment on above: Performed By: #### C MP, CMADM, BNP #### [facility] [address] [address] [address] Baldemar Rodriguez Urea nitrogen/Creatinine [Mass ratio] 16.9 mg/mg Normal [facility] Comment on above: Performed By: #### C MP, CMADM, BNP #### [facility] [address] [place] [address] Dr. Baldemar Rodriguez TSHon 03-23-2022 TSH 0.588 uIU/mL Normal 0.358-3.740 [facility] Comment on above: Performed By: #### M G, TSH #### [facility] [address] [place] [address] Dr. Baldemar Rodriguez BNPon 03-22-2022 Natriuretic peptide B (Bld) [Mass/Vol] 2517.0 pg/mL Critically high <=900.0 [facility] Comment on above: Performed By: #### C MP, CMADM, BNP #### [facility] [address] [place] [address] Dr. Baldemar Rodriguez CARDIAC FREYA ADMITon 023 CK [Catalytic activity/Vol] 33 U/L Normal 26-192 [facility] Comment on above: Performed By: #### C MP, CMADM, BNP #### [facility] [address] [place] [address] Dr. Baldemar Rodriguez CK.MB [Mass/Vol] ng/mL Normal <=3.60 [facility] Comment on above: Performed By: #### C MP, CMADM, BNP #### [facility] [address] [place] [address] Dr. Baldemar Rodriguez HSTROP 11.9 pg/mL Normal 4.0-51.3 [facility] Comment on above: Result Comment: CUT- OFF POINTS HAVE BEEN ESTABLISHED BASED ON THE FOURTH UNIVERSAL DEFINITIONS OF MYOCARDIAL INFARCTION. THE UPPER REFERENCE LIMIT (URL) OF TROPONIN, DEFINED THE 99TH PERCENTILE OF cTnI DISTRIBUTION IN A REFERENCE POPULATION, HAS BEEN CONFIRMED THE DECISION THRESHOLD FOR [place] DIAGNOSIS. Performed By: #### C MP, CMADM, BNP #### [facility] [address] [place] [address] Dr. Baldemar Rodriguez EMILY 29 ng/mL Normal 9-82 [facility] Comment on above: Performed By: #### C MP, CMADM, BNP #### [facility] [address] [place] [address] Dr. Baldemar Rodriguez CBC AUTO DIFFon 03-22-2022 BASO # 0.1 103/ul Normal 0.0-0.1 [facility] Comment on above: Performed By: #### C MP, CMADM, BNP #### [facility] [address] [place] [address] Dr. Baldemar Rodriguez Basophils/100 WBC (Bld) 0.8 % Normal 0.2-2.0 [facility] Comment on above: Performed By: #### C MP, CMADM, BNP #### [facility] [address] [place] [address] Dr. Baldemar Rodriguez EO # 0.1 103/ul Normal 0.0-0.7 [facility] Comment on above: Performed By: #### C MP, CMADM, BNP #### [facility] [address] [place] [address] Dr. Baldemar Rodriguez Eosinophils/100 WBC (Bld) 2.2 % Normal 0.9-7.0 [facility] Comment on above: Performed By: #### C MP, CMADM, BNP #### [facility] [address] [place] [address] Dr. Baldemar Rodriguez Erythrocyte distribution width (RBC) [Ratio] 15.1 % Critically high 11.0-15.0 [facility] Comment on above: Performed By: #### C MP, CMADM, BNP #### [facility] [address] [place] [address] Dr. Baldemar Rodriguez Hematocrit (Bld) [Volume fraction] 39.2 % Normal 36.0-48.0 [facility] Comment on above: Performed By: #### C MP, CMADM, BNP #### [facility] [address] [place] [address] Dr. Baldemar Rodriguez Hemoglobin (Bld) [Mass/Vol] 12.6 g/dL Normal 12.0-16.0 [facility] Comment on above: Performed By: #### C MP, CMADM, BNP #### [facility] [address] [place] [address] Dr. Baldemar Rodriguez IG # 0.02 10e3/ul Normal 0.00-0.03 [facility] Comment on above: Performed By: #### C MP, CMADM, BNP #### [facility] [address] [address] [address] Baldemar Rodriguez IG % 0.3 % Normal 0.0-0.5 [facility] Comment on above: Performed By: #### C MP, CMADM, BNP #### [facility] [address] [place] [address] Dr. Baldemar Rodriguez LYMPH # 1.6 103/ul Normal 1.2-3.8 [facility] Comment on above: Performed By: #### C MP, CMADM, BNP #### [facility] [address] [place] [address] Dr. Baldemar Rodriguez Lymphocytes/100 WBC (Bld) 27.3 % Normal 20.5-60.0 [facility] Comment on above: Performed By: #### C MP, CMADM, BNP #### [facility] [address] [place] [address] Dr. Baldemar Rodriguez MANUAL DIFF REQ NO Normal [facility] Comment on above: Performed By: #### C MP, CMADM, BNP #### [facility] [address] [place] [address] Dr. Baldemar Rodriguez MCH (RBC) [Entitic mass] 30.4 pg Normal 26.7-34.0 [facility] Comment on above: Performed By: #### C MP, CMADM, BNP #### [facility] [address] [place] [address] Dr. Baldemar Rodriguez MCHC (RBC) [Mass/Vol] 32.1 g/dL Normal 29.9-35.2 [facility] Comment on above: Performed By: #### C MP, CMADM, BNP #### [facility] [address] [place] [address] Dr. Baldemar Rodriguez MCV (RBC) [Entitic vol] 94.5 fL Normal 81.0-99.0 [facility] Comment on above: Performed By: #### C MP, CMADM, BNP #### [facility] [address] [place] [address] Dr. Baldemar Rodriguez MONO # 0.5 103/ul Normal 0.3-0.8 [facility] Comment on above: Performed By: #### C MP, CMADM, BNP #### [facility] [address] [place] [address] Dr. Baldemar Rodriguez Monocytes/100 WBC (Bld) 8.0 % Normal 1.7-12.0 [facility] Comment on above: Performed By: #### C MP, CMADM, BNP #### [facility] [address] [place] [address] Dr. Baldemar Rodriguez NEUT # 3.7 103/ul Normal 1.4-6.5 [facility] Comment on above: Performed By: #### C MP, CMADM, BNP #### [facility] [address] [place] [address] Dr. Baldeamr Rodriguez Neutrophils/100 WBC (Bld) 61.4 % Normal 43.0-75.0 [facility] Comment on above: Performed By: #### C MP CMADM, BNP #### [facility] [address] [place] [address] Dr. Baldemar Rodriguez Platelet mean volume (Bld) [Entitic vol] 9.4 fL Critically low 9.5-13.5 [facility] Comment on above: Performed By: #### C MP, CMADM, BNP #### [facility] [address] [place] [address] Dr. Baldemar Rodriguez PLT 226 103/ul Normal 150-450 [facility] Comment on above: Performed By: #### C MP, CMADM, BNP #### [facility] [address] [place] [address] Dr. Baldemar Rodriguez RBC 4.15 106/ul Critically low 4.20-5.40 [facility] Comment on above: Performed By: #### C MP, CMADM, BNP #### [facility] [address] [place] [address] Dr. Baldemar Rodriguez WBC 6.0 103/ul Normal 4.0-11.0 [facility] Comment on above: Performed By: #### C MP, CMADM, BNP #### [facility] [address] [address] [address] Baldemar Rodriguez [facility]on [facility]-13 SARS-CoV-2 (COVID-19) RNA BOLIVAR+probe Ql (Unsp spec) Not detected Normal NOT DETECTED [facility] Comment on above: Result Comment: When diagnostic testing is negative, the possibility of a false negative should be considered in the context of a patient's recent exposures and the presence of clinical signs and symptoms consistent with SARS-CoV-2. This test is not yet approved or cleared by the [place] FDA. When there are no FDA-approved or cleared tests available, and other criteria are met, FDA can make tests available under an emergency access mechanism called an Emergency Use Authorization (EUA). The EUA for this test is supported by the [place] of Health and Human Service's declaration that circumstances exist to justify the emergency use of in vitro diagnostics for the detection and/or diagnosis of the virus that causes COVID-19. This EUA will remain in effect for the duration of the COVID-19 declaration justifying emergency of IVDs, unless it is terminated or revoked by the FDA (after which the test may no longer be used). Performed By: #### C JANIE GUNN, BNP #### [facility] [address] [address] [address] Baldemar Rodriguez D-DIMERon 03-22-2022 D-DIMER 0.75 mg/L FEU Critically high <=0.59 [facility] Comment on above: Performed By: #### C JANIE GUNN, BNP #### [facility] [address] [address] [address] Baldemar Rodriguez D-DIMER COMMENTS SEE BELOW Normal [facility] [place] [facility] Comment on above: Result Comment: Incr eases in D-Dimer concentration observed with thromboembolic events can be variable due to localization, size, and age of the thrombus. Therefore, a thromboembolic event cannot be diagnosed with certainty on the basis of the reference range. D-Dimers may also be elevated for a variety of disorders including: advanced age, , coronary disease, cancer, liver disease, infection, inflammation, hematoma, DIC, trauma, post-surgery, diabetes, thrombolytic or anticoagulant therapy, stress, and generalized hospitalization. Performed By: #### C MP, CMADM, BNP #### [facility] [address] [address] [address] Baldemar Rodriguez ECHOCARDIO M/2D COMPLETEon 0 03-22-2022 ECHOCARDIO M/2D COMPLETE Patient: PENNY DIANE Exam Date: 03/22/2022 : 1950 Gender:F Ordering : SHAIKH Chu LOJA . Admission #: [id number] Family : DR TY THOMAS D.O. Order #: [id number] CLICK HERE TO VIEW EXAM ECHOCARDIOGRAM REPORT PROCEDURE: CARDIO PULMONARY ECHOCARDIO M/2D COMP INDICATIONS: Elevated BNP, atrial fibrillation, pacemaker, hypertension COMPARISON: None. DESCRIPTION: COMPLETE ECHOCARDIOGRAM Real-time transthoracic echocardiography with 2D, M-mode, spectral and color flow Doppler performed. QUALITY: Technical quality was good. 65 172# BP 127/78 LEFT VENTRICLE: Mild dilatation. Abnormal septal motion due to paced rhythm. Mildly reduced systolic function. LV EF: Mildly reduced left ventricular ejection fraction, (40-45%). DIASTOLIC: Not adequately assessed due to heart rhythm. ATRIAL SEPTUM: Visually appears intact. LEFT ATRIUM: Severe dilatation. RIGHT ATRIUM: Moderate dilatation. RIGHT VENTRICLE: Normal chamber size. Mildly reduced systolic function. Pacer wire present. TRICUSPID VALVE: Normal mobility and thickness. No stenosis with moderate regurgitation. Doppler studies reveal moderately (45-60) elevated right sided pressures. RVSP 54 mmHg MITRAL VALVE: Mildly thickened with normal mobility. No evidence of mitral valve stenosis. At least moderate mitral regurgitation. AORTIC VALVE: Normal trileaflet appearance. Mildly calcified aortic valve. Normal leaflet mobility. No evidence of aortic valve stenosis. No aortic regurgitation. AORTIC ROOT: Normal diameter and appearance. PULMONIC VALVE: Normal thickness and mobility. No stenosis. Mild regurgitation. PERICARDIUM: No evidence of pericardial effusion. IVC: IVC is normal in size with no collapse. PLEURA: Pleural effusion. CONCLUSION: 1. Left ventricular systolic function is mildly reduced. LVEF is 40 to 45%. 2. The right ventricle is normal in size with mildly reduced systolic function. 3. At least moderate mitral regurgitation. 4. Moderate tricuspid regurgitation. 5. Moderately elevated right-sided pressures. RVSP 54 mmHg. Adult Echocardiography Procedure Report Left Ventricle LVEDD (3.7 - 5.6 cm): 5.36 cm LVESD (2.2 - 4.0 cm): 4.11 cm LVIVS thickness (0.6 - 1.2 cm): 1.01 cm LVPW thickness (0.5 - 1.0 cm): 1.01 cm LVOT Max Gradient: 1.54 mm[Hg] Peak Velocity (LVOT): 0.62 m/s Mean Velocity (LVOT): 0.44 m/s LVOT Diameter 2.17 cm Left Ventricular Ejection Fraction: 40-45 % Left Atrium LA Volume Index (2D A2C): 123.15 ml, 123.15 ml Left Atrium Systolic Dimension: 3.80 cm Mitral Valve Mitral Valve E-Wave Peak Velocity: 0.96 m/s, 0.81 m/s Right Ventricle Aorta AO Root Diam: 2.88 cm Aortic Valve AoV Area (Peak Yosef): 2.56 cm2, 2.49 cm2, 2.49 cm2, 2.49 cm2 AoV Area (VTI): 2.70 cm2, 2.48 cm2 Peak Velocity(Antegrade Flow): 0.92 m/s, 0.87 m/s, 0.92 m/s Peak Gradient(Antegrade Flow): 3.40 mm[Hg], 3.40 mm[Hg], 3.04 mm[Hg] Mean Velocity(Antegrade Flow): 0.66 m/s, 0.64 m/s Mean Gradient(Antegrade Flow): 1.96 mm[Hg], 1.84 mm[Hg] Velocity Time Integral: 17.18 cm, 14.43 cm Tricuspid Valve Peak Velocity (Regurgitant Flow): 3.32 m/s, 3.49 m/s Pulmonic Valve Peak Velocity: 0.61 m/s, 0.60 m/s Peak Gradient: 1.49 mm[Hg], 1.44 mm[Hg] Right Atrium Right Atrium Systolic Pressure: 69.74 ml, 69.74 ml Dictated by: Charly Lofton M.D. on 03/22/2022 at 16:42 Approved by: Charly Lofton M.D. on 03/22/2022 at 16:57 Normal [facility] PROF 14(COMP METB)on 023 Albumin [Mass/Vol] 3.4 g/dL Normal 3.4-5.0 [facility] Comment on above: Performed By: #### C MP, CMADM, BNP #### [facility] [address] [place] [address] Dr. Baldemar Rodriguez Albumin/Globulin [Mass ratio] 0.8 {ratio} Normal [facility] Comment on above: Performed By: #### C MP, CMADM, BNP #### [facility] [address] [address] [address] Baldemar Rodriguez ALP [Catalytic activity/Vol] 124 U/L Critically high 46-116 [facility] Comment on above: Performed By: #### C MP, CMADM, BNP #### [facility] [address] [place] [address] Dr. Baldemar Rodriguez ALT [Catalytic activity/Vol] 30 U/L Normal 14-59 [facility] Comment on above: Performed By: #### C MP, CMADM, BNP #### [facility] [address] [place] [address] Dr. Baldemar Rodriguez Anion gap [Moles/Vol] 12.0 mmol/L Normal [facility] Comment on above: Performed By: #### C MP, CMADM, BNP #### [facility] [address] [place] [address] Dr. Baldemar Rodriguez AST [Catalytic activity/Vol] 30 U/L Normal 15-37 [facility] Comment on above: Performed By: #### C MP, CMADM, BNP #### [facility] [address] [address] [address] Baldemar Rodriguez Bilirubin [Mass/Vol] 0.9 mg/dL Normal 0.2-1.0 [facility] Comment on above: Performed By: #### C MP, CMADM, BNP #### [facility] [address] [place] [address] Dr. Baldemar Rodriguez Calcium [Mass/Vol] 9.4 mg/dL Normal 8.5-10.1 [facility] Comment on above: Performed By: #### C MP, CMADM, BNP #### [facility] [address] [place] [address] Dr. Baldemar Rodriguez Chloride [Moles/Vol] 105 mmol/L Normal 98-107 [facility] Comment on above: Performed By: #### C MP CMADM, BNP #### [facility] [address] [address] [address] Baldemar Rodriguez CO2 [Moles/Vol] 30.8 mmol/L Normal 21.0-32.0 [facility] Comment on above: Performed By: #### C MP, CMADM, BNP #### [facility] [address] [place] [address] Dr. Baldemar Rodriguez Creatinine [Mass/Vol] 0.79 mg/dL Normal 0.55-1.02 [facility] Comment on above: Performed By: #### C MP CMADM, BNP #### [facility] [address] [address] [address] Baldemar Rodriguez EGFR-AF BRITISH >60 Normal >=60 [facility] Comment on above: Performed By: #### C MP CMADM, BNP #### [facility] [address] [place] [address] Dr. Baldemar Rodriguez EGFR-NON AF BRITISH >60 Normal >=60 [facility] Comment on above: Performed By: #### C MP CMADM, BNP #### [facility] [address] [place] [address] Dr. Baldemar Rodriguez Globulin (S) [Mass/Vol] 4.3 g/dL Normal [facility] Comment on above: Performed By: #### C MP CMADM, BNP #### [facility] [address] [place] [address] Dr. Baldemar Rodriguez Glucose [Mass/Vol] 115 mg/dL Critically high 74-106 T [facility] Comment on above: Performed By: #### C MP, CMADM, BNP #### [facility] [address] [place] [address] Dr. Baldemar Rodriguez Potassium [Moles/Vol] 3.8 mmol/L Normal 3.5-5.1 [facility] Comment on above: Performed By: #### C MP, CMADM, BNP #### [facility] [address] [address] [address] Baldemar Rodriguez Protein [Mass/Vol] 7.7 g/dL Normal 6.4-8.2 [facility] Comment on above: Performed By: #### C MP, CMADM, BNP #### [facility] [address], [place] [address] Dr. Baldemar Rodriguez Sodium [Moles/Vol] 144 mmol/L Normal 136-145 [facility] Comment on above: Performed By: #### C LUIS A, CMADM, BNP #### [facility] [address] [address] [address] Baldemar Rodriguez Urea nitrogen [Mass/Vol] 11.0 mg/dL Normal 7.0-18.0 [facility] Comment on above: Performed By: #### C LUIS A CMADM, BNP #### [facility] [address] [address] [address] Baldemar Rodriguez Urea nitrogen/Creatinine [Mass ratio] 13.9 mg/mg Normal [facility] Comment on above: Performed By: #### C LUIS A, CMADM, BNP #### [facility] [address] [address] [address] Baldemar Rodriguez XR CHEST 1 Von 03-22-2022 XR CHEST 1 V EXAM: XR CHEST 1 V HISTORY: SHORTNESS OF BREATH COMPARISON: 01/22/2022 TECHNIQUE: Single view of the chest FINDINGS: Cardiomegaly with interstitial prominence. Basilar opacities obscuring the hemidiaphragms and heart borders. Left chest cardiac device and leads noted. No pneumothorax. IMPRESSION: Cardiomegaly with interstitial/alveola r edema. Basilar opacities with atelectasis/consolid ation not excluded. Electronically authenticated by: ANNITA BRAN Date: 2022-03-22 12:45 Normal [facility] XR CHEST 2 Von 01-22-2022 XR CHEST 2 V EXAM: XR CHEST 2 V HISTORY: Cardiac pacemaker in situ COMPARISON: 06/03/2020 TECHNIQUE: Upright PA and lateral chest x-ray FINDINGS: A left-sided bipolar pacemaker is now in place. The heart is at the upper limits of normal in size with prominence of the central pulmonary vasculature. There is been interval improvement of the patient's pulmonary edema and bilateral effusions, and a small right pleural effusion persists. There is no evidence of a pneumothorax. The osseous structures are grossly intact. IMPRESSION: Interval placement of the left-sided transvenous pacemaker. Interval improvement of the patient's vascular congestion and pulmonary edema as well as bilateral effusions. A small right pleural effusion persists, and there is no evidence of a focal infiltrate or pneumothorax. Electronically authenticated by: HALIE NICK Date: 2022-01-22 15:48 Normal [facility] A1C HEMOGLOBINon 11-08-2021 HbA1c (Bld) [Mass fraction] 5.6 % [facility] Other HbA1c (Bld) [Mass fraction]o n 11-08-2021 A1C HEMOGLOBIN [facility] Other ECHOCARDIO M/2D COMPLETEon 0 08-15-2021 ECHOCARDIO M/2D COMPLETE Patient: PENNY DIANE Exam Date: 08/15/2021 : 1950 Gender:F Ordering : REGINO HERNADEZ Admission #: [id number] Family : DR TY THOMAS D.O. Order #: [id number] CLICK HERE TO VIEW EXAM ECHOCARDIOGRAM REPORT PROCEDURE: CARDIO PULMONARY ECHOCARDIO M/2D COMP INDICATIONS: Atrial fibrillation W/ RVR, S/P Atrial fibrillation ablation 05/17/2021 COMPARISON: None. DESCRIPTION: COMPLETE ECHOCARDIOGRAM Real-time transthoracic echocardiography with 2D, M-mode, spectral and color flow Doppler performed. QUALITY: Technical quality was adequate. 66 186# 110/70 HR 131 LEFT VENTRICLE: Normal chamber size. Mild concentric left ventricular hypertrophy. LV EF: Mildly to moderately reduced left ventricular ejection fraction, (40%). DIASTOLIC: Unable to assess due to rhythm. ATRIAL SEPTUM: LEFT ATRIUM: Severe dilatation. RIGHT ATRIUM: Moderate mildly dilated dilatation. RIGHT VENTRICLE: Mildly dilated. Normal right ventricular systolic function. TRICUSPID VALVE: Normal mobility and thickness. No stenosis with moderate to severe regurgitation. No evidence of pulmonary hypertension. RVSP 33 mmHg MITRAL VALVE: Mildly thickened with normal mobility. No evidence of mitral valve stenosis. Moderate mitral regurgitation. AORTIC VALVE: Normal trileaflet appearance. Mildly calcified aortic valve. No evidence of aortic valve stenosis. Trivial aortic regurgitation. AORTIC ROOT: Normal diameter and appearance. PULMONIC VALVE: Normal thickness and mobility. No stenosis. Trivial regurgitation. PERICARDIUM: No evidence of pericardial effusion. IVC: Collapses with inspirations. IVC is normal in size. PLEURA: CONCLUSION: 1. Mild concentric left ventricular hypertrophy. Left ventricular systolic function is mildly to moderately reduced. LVEF is 40%. 2. Mildly reduced dilated right ventricle with preserved systolic function. 3. Moderate mitral valve regurgitation. 4. Moderate to severe tricuspid valve regurgitation. 5. Normal right-sided pressures. 6. No pericardial effusion. 7. The patient appears to be in atrial fibrillation with rapid ventricular response. Adult Echocardiography Procedure Report Left Ventricle Left Atrium Mitral Valve Right Ventricle Aorta Aortic Valve Peak Velocity (Antegrade Flow): 1.28 m/s AoV Area (Peak Yosef): 2.61 cm2, 2.61 cm2 Peak Velocity(Antegrade Flow): 1.28 m/s Peak Gradient(Antegrade Flow): 6.57 mm[Hg] Tricuspid Valve Peak Velocity (Regurgitant Flow): 2.40 m/s, 2.58 m/s Peak Velocity: 0.46 m/s, 0.36 m/s Pulmonic Valve PV Max Yosef (0.6 - 0.9 m per sec): 0.74 m/s PV Max Gradient: 2.18 mm[Hg] Right Atrium Dictated by: Charly Lofton M.D. on 08/15/2021 at 16:09 Approved by: Charly Lofton M.D. on 08/15/2021 at 16:14 Normal [facility] BASIC METABOLIC PANELon 06-0 Calcium [Mass/Vol] 9.9 mg/dL Normal 8.6-10.3 [facility] Comment on above: Performed By: #### 0 0071 #### [facility] [address] [place] [address], [facility] Chloride [Moles/Vol] 105 mmol/L Normal 98-107 [facility] Comment on above: Performed By: #### 0 0071 #### [facility] [address] [place] [address], [place] CO2 [Moles/Vol] 30 mmol/L Normal 21-31 [facility] Comment on above: Performed By: #### 0 0071 #### [facility] [address] [place] [address], [place] Creatinine [Mass/Vol] 1.25 mg/dL High 0.60-1.20 [facility] Comment on above: Performed By: #### 0 0071 #### [facility] [address] [place] [address], [facility] eGFR- 51 ml/min/1.73sq m Abnormal >60 [facility] Comment on above: Result Comment: Calc ulation may not be valid for patients over 70 years Performed By: #### 0 0071 #### [facility] [address] [place] [address], [facility] eGFR- non- 42 ml/min/1.73sq m Abnormal >60 [facility] Comment on above: Result Comment: Calc ulation may not be valid for patients over 70 years Performed By: #### 0 0071 #### [facility] [address] [place] [address], [place] Glucose [Mass/Vol] 96 mg/dL Normal 70-100 [facility] Comment on above: Performed By: #### 0 0071 #### [facility] [address] [place] [address], [place] Potassium [Moles/Vol] 3.9 mmol/L Normal 3.5-5.1 [facility] Comment on above: Performed By: #### 0 0071 #### [facility] [address] [place] [address], [place] Sodium [Moles/Vol] 143 mmol/L Normal 136-145 [facility] Comment on above: Performed By: #### 0 0071 #### [facility] [address] [place] [address], [place] Urea nitrogen [Mass/Vol] 25 mg/dL Normal 7-25 [facility] Comment on above: Performed By: #### 0 0071 #### [facility] [address] [address], [facility] CBC COMPLETE BLOOD COUNTon 0 07-11-2021 Erythrocyte distribution width (RBC) [Ratio] 13.9 % Normal 11.5-15.0 [facility] Comment on above: Performed By: #### 5 0608 #### [facility] [address] [place] [address], [facility] Hematocrit (Bld) [Volume fraction] 41.6 % Normal 36.0-45.0 [facility] Comment on above: Performed By: #### 5 0608 #### [facility] [address] [place] [address], [facility] Hemoglobin (Bld) [Mass/Vol] 13.5 g/dL Normal 12.0-15.0 [facility] Comment on above: Performed By: #### 5 0608 #### [facility] [address] [place] [address], [facility] MCH (RBC) [Entitic mass] 31.3 pg Normal 27.0-33.0 [facility] Comment on above: Performed By: #### 5 0608 #### [facility] [address] [place] [address], [facility] MCHC (RBC) [Mass/Vol] 32.5 g/dL Normal 32.0-35.0 [facility] Comment on above: Performed By: #### 5 0608 #### [facility] [address] [place] [address], [facility] MCV (RBC) [Entitic vol] 96.5 fL Normal 82.0-98.0 [facility] Comment on above: Performed By: #### 5 0608 #### [facility] [address] [place] [address], [facility] Nucleated RBC/100 WBC (Bld) [Ratio] 0 % Normal 0-0 [facility] Comment on above: Performed By: #### 5 0608 #### [address] PLAT CNT 219 10*3/uL Normal 150-400 [facility] Comment on above: Performed By: #### 5 0608 #### [facility] [address] RBC (Bld) [#/Vol] 4.31 10*6/uL Normal 3.80-5.00 [facility] Comment on above: Performed By: #### 5 0608 #### [address] WBC (Bld) [#/Vol] 5.29 10*3/uL Normal 4.00-10.60 [facility] Comment on above: Performed By: #### 5 0608 #### [address] Cardiovascular Lab Reporton 07-11-2021 Cardiovascular Lab Report [facility] Patient Name: Penny Diane [facility] MR #: [id number] Physician: Regino Hernadez MD Department of Service Date: 07/11/2021 Medicine Birthdate: 1950 Division of Room #: [facility]iology Adult Cardiovascular Services [address] [place] [address] Cardiovascular Laboratory Report ATRIAL FIBRILLATION ABLATION PROCEDURE NOTE DATE OF PROCEDURE: 07/11/2021 PERFORMING PHYSICIAN: Dr. Regino Hernadez CONSENT: Patient NAME OF THE PROCEDURE: Pulmonary Vein Isolation and Comprehensive EP study. INDICATIONS FOR PROCEDURE: 1. Persistent atrial fibrillation having failed pharmacologic therapy and initial ablation. PROCEDURES PERFORMED: 1. Sonosite guided venous access as noted below and images stored. 2. Comprehensive EP study and catheter ablation for persistent atrial fibrillation through the pulmonary vein isolation technique. This includes right atrial recording and pacing, His bundle recording and right ventricular recording and pacing. 3. Intracardiac EP 3D mapping. 4. Intracardiac echocardiogram 5. Left atrial and coronary sinus recording and pacing to assess ablation results. 6. Left heart pressure measurements and LV pacing and recording. 7. Induction of arrhythmia and testing of ablation results using intravenous adenosine infusion. 8. Fluroscopy. FLUROSCOPY: 1min 37s/10mGray PROCEDURE NOTE: 70-year-old lady with a prior history of atrial fibrillation ablation that was performed on 05/17/2021. At that time, she was noted to have nonsustained atrial flutter and so CTI ablation was not performed. Given that the EKG showed a very organized rhythm, it was presumed that she had atrial flutter and was brought to the lab. Both the groins were then prepared and draped. Ultrasound was used to determine the course and patency of the femoral veins on both sides and they were noted to be patent and the image stored in PACS. After infiltration with 1% lidocaine, 3 venous sheaths were placed in the right as noted below. RFA: 4F added on later in the case for hemodynamic monitoring. RFV: 8Fx3 ThermoCool SF Bi-Directional over SL1/ Vizigo, SL1:Pentaray, 8Fx1 CS Catheter (EZ Steer) 9Fx1: ICE catheter. Following this, CS catheter was placed and this clearly showed the presence of organized rhythm with a cycle length of 180 milliseconds that was varying. Once the CS catheter was advanced, it was clear that the patient was in atrial fibrillation with the right side more organized than the left. I decided to interrogate the pulmonary veins. [id number] Heparin bolus was given followed by additional bolus and continuous intravenous drip to target ACT around 350. An intracardiac ultrasound catheter was inserted into the right atrium to examine the right atrial anatomy, atrial septum, pulmonary vein anatomy and to monitor for pericardial effusion and guide transseptal access. At baseline, there was mild echogenicity noted consistent with mild pericardial effusion vs fat and no EZ clot. Single transseptal access technique was used to cross to the left side. Following the first transeptal access, which was achieved via puncture of the thinner aspect of the septum using Garret needle, Pentaray catheter was placed in the left atrium. PentaRay was then advanced into the left atrium and mapping was performed. This actually had actually revealed the left-sided vein to be isolated, although there was some concern of some signals in the anterior aspect, which could be EZ far field signals. Mapping in the right side also revealed the veins to be isolated. At this juncture, we mapped the posterior wall. There was significant fibrillatory activity that was noted in the posterior wall raising a concern whether this could be the foci that led to the atrial fibrillation. At this state, I decided to consider the help from Anesthesia team to place patient under general anesthesia to prevent movement and to facilitate ablation. Given the delay to intubate, CTI ablation was performed while anesthesia was getting ready. Post intubation, she was noted to have blood pressures in the 70s and 80s, initially was in the 90s, but subsequently dropped to 70s and 80s. ICE revealed the absence of any effusion, and initially, it was noted that she was given 10,000 units and subsequently we had given boluses in between 3000U to keep her ACT above 350. Once the ACT was above 350, subsequent ACT revealed the numbers to be greater than 400, although we had not given repeat heparin dosing, throughout the rest of the case. Blood pressure was in the 70s and she required vasopressin and phenylephrine to keep blood pressure at 90 mmHg. The femoral arterial access was then procured for close monitoring of blood pressure. Subsequently, the PentaRay was taken out and then the Vizigo sheath was advanced and (more content not included)... Normal [facility] Covid-19 PCR ([facility])on 06-12 SARS-CoV-2 (COVID-19) RNA BOLIVAR+probe Ql (Unsp spec) Not detected Normal NOT DETECTED [facility] Comment on above: Result Comment: This test is not yet approved or cleared by the [place] FDA. When there are no FDA-approved or cleared tests available, and other criteria are met, FDA can make tests available under an emergency access mechanism called an Emergency Use Authorization (EUA). The EUA for this test is supported by the [place] of Health and Human Service's (HHS's) declaration that circumstances exist to justify the emergency use of in vitro diagnostics for the detection and/or diagnosis of the virus that causes COVID-19. This EUA will remain in effect (meaning this test can be used) for the duration of the COVID-19 declaration justifying emergency of IVDs, unless it is terminated or revoked by FDA (after which the test may no longer be used). When diagnostic testing is negative, the possibility of a false negative should be considered in the context of a patient's recent exposures and the presence of clinical signs and symptoms consistent with SARS-CoV-2. Performed By: #### C VDTBH #### [facility] [address] [place] [address] Dr. Baldemar Rodriguez HEMOGRAM AND PLATELon 2021 Hematocrit (Bld) [Volume fraction] 40.9 % Normal 36.0-48.0 [facility] Comment on above: Performed By: #### C MP CMADM, BNP #### [facility] [address] [place] [address] Dr. Baldemar Rodriguez Hemoglobin (Bld) [Mass/Vol] 12.9 g/dL Normal 12.0-16.0 [facility] Comment on above: Performed By: #### C LUIS A CMADM, BNP #### [facility] [address] [place] [address] Dr. Baldemar Rodriguez MCH (RBC) [Entitic mass] 30.9 pg Normal 26.7-34.0 [facility] Comment on above: Performed By: #### C LUIS A CMADM, BNP #### [facility] [address] [place] [address] Dr. Baldemar Rodriguez MCHC (RBC) [Mass/Vol] 31.5 g/dL Normal 29.9-35.2 [facility] Comment on above: Performed By: #### C MP, CMADM, BNP #### [facility] [address] [place] [address] Dr. Baldemar Rodriguez MCV (RBC) [Entitic vol] 98.1 fL Normal 81.0-99.0 [facility] Comment on above: Performed By: #### C MP, CMADM, BNP #### [facility] [address] [place] [address] Dr. Baldemar Rodriguez PLT 258 103/ul Normal 150-450 [facility] Comment on above: Performed By: #### C MP, CMADM, BNP #### [facility] [address] [place], [place] [address] Dr. Baldemar Rodriguez RBC 4.17 106/ul Critically low 4.20-5.40 [facility] Comment on above: Performed By: #### C MP, CMADM, BNP #### [facility] [address] [place], [place] [address] Dr. Baldemar Rodriguez WBC 5.0 103/ul Normal 4.0-11.0 [facility] Comment on above: Performed By: #### C MP, CMADM, BNP #### [facility] [address] [place], [place] [address] Dr. Baldemar Rodriguez BASIC METABOLIC PANELon 04-0 Calcium [Mass/Vol] 8.0 mg/dL Low 8.6-10.3 [facility] Comment on above: Order Comment: No: D o not add to previous draw Performed By: #### 0 0071 #### [facility] [address] [place] [address], [facility] Chloride [Moles/Vol] 105 mmol/L Normal 98-107 [facility] Comment on above: Order Comment: No: D o not add to previous draw Performed By: #### 0 0071 #### [facility] [address] [place] [address], [place] CO2 [Moles/Vol] 26 mmol/L Normal 21-31 [facility] Comment on above: Order Comment: No: D o not add to previous draw Performed By: #### 0 0071 #### [facility] [address] [place] [address], [place] Creatinine [Mass/Vol] 0.77 mg/dL Normal 0.60-1.20 [facility] Comment on above: Order Comment: No: D o not add to previous draw Performed By: #### 0 0071 #### [facility] [address] [place] [address], [place] GFR/1.73 sq M.predicted among blacks MDRD (S/P/Bld) [Vol rate/Area] mL/min/{1.73_m2} Normal >60 [facility] Comment on above: Order Comment: No: D o not add to previous draw Result Comment: Calc ulation may not be valid for patients over 70 years Performed By: #### 0 0071 #### [facility] [address] [place] [address], [place] GFR/1.73 sq M.predicted among non-blacks MDRD (S/P/Bld) [Vol rate/Area] mL/min/{1.73_m2} Normal >60 [facility] Comment on above: Order Comment: No: D o not add to previous draw Result Comment: Calc ulation may not be valid for patients over 70 years Performed By: #### 0 0071 #### [facility] [address] [place] [address], [place] Glucose [Mass/Vol] 89 mg/dL Normal 70-100 [facility] Comment on above: Order Comment: No: D o not add to previous draw Performed By: #### 0 0071 #### [facility] [address] [place] [address], [place] Potassium [Moles/Vol] 2.8 mmol/L Low 3.5-5.1 [facility] Comment on above: Order Comment: No: D o not add to previous draw Performed By: #### 0 0071 #### [facility] [address] [place] [address], [place] Sodium [Moles/Vol] 140 mmol/L Normal 136-145 [facility] Comment on above: Order Comment: No: D o not add to previous draw Performed By: #### 0 0071 #### [facility] [address] [place] [address], [place] Urea nitrogen [Mass/Vol] 11 mg/dL Normal 7-25 [facility] Comment on above: Order Comment: No: D o not add to previous draw Performed By: #### 0 0071 #### [facility] [address] [place] [address], [facility] CBC W/DIFFon 05-18-2021 ABS IMM GRANS 0.0 10*3/uL Normal 0.0-0.2 [facility] Comment on above: Order Comment: No: D o not add to previous draw Performed By: #### 5 0103 #### [facility] [address] [place] [address], [facility] ABS NEUTROPHILS 2.6 10*3/uL Normal 1.6-7.6 [facility] Comment on above: Order Comment: No: D o not add to previous draw Performed By: #### 5 0103 #### [facility] [address] [facility] [place] [address], [facility] Basophils (Bld) [#/Vol] 0.0 10*3/uL Normal 0.0-0.2 [facility] Comment on above: Order Comment: No: D o not add to previous draw Performed By: #### 5 0103 #### [facility] [address] [place] [address], [facility] Basophils/100 WBC (Bld) 0.6 % Normal 0.0-1.0 [facility] Comment on above: Order Comment: No: D o not add to previous draw Performed By: #### 5 0103 #### [facility] [address] [place] [address], [facility] Eosinophils (Bld) [#/Vol] 0.1 10*3/uL Normal 0.0-0.5 [facility] Comment on above: Order Comment: No: D o not add to previous draw Performed By: #### 5 0103 #### [facility] [address] [place] [address], [facility] Eosinophils/100 WBC (Bld) 2.9 % Normal 0.0-6.0 [facility] Comment on above: Order Comment: No: D o not add to previous draw Performed By: #### 5 0103 #### [facility] [address] [place] [address], [facility] Erythrocyte distribution width (RBC) [Ratio] 12.9 % Normal 11.5-15.0 [facility] Comment on above: Order Comment: No: D o not add to previous draw Performed By: #### 5 0103 #### [facility] [address] [place] [address], [facility] Hematocrit (Bld) [Volume fraction] 33.0 % Low 36.0-45.0 [facility] Comment on above: Order Comment: No: D o not add to previous draw Performed By: #### 5 0103 #### [facility] [address] [place] [id number], [facility] Hemoglobin (Bld) [Mass/Vol] 10.7 g/dL Low 12.0-15.0 [facility] Comment on above: Order Comment: No: D o not add to previous draw Performed By: #### 5 0103 #### [facility] [address] [place] [address], [facility] IMMATURE GRANS 0.2 % Normal 0.0-1.0 [facility] Comment on above: Order Comment: No: D o not add to previous draw Performed By: #### 5 0103 #### [facility] [address] [place] [address], [facility] Lymphocytes (Bld) [#/Vol] 1.5 10*3/uL Normal 1.2-4.0 [facility] Comment on above: Order Comment: No: D o not add to previous draw Performed By: #### 5 0103 #### [facility] [address] [place] [id number], [facility] Lymphocytes/100 WBC (Bld) 31.0 % Normal 20.0-45.0 [facility] Comment on above: Order Comment: No: D o not add to previous draw Performed By: #### 5 0103 #### [facility] [address] [place] [address], [facility] MCH (RBC) [Entitic mass] 32.0 pg Normal 27.0-33.0 [facility] Comment on above: Order Comment: No: D o not add to previous draw Performed By: #### 5 0103 #### [facility] [address] [place] [address], [facility] MCHC (RBC) [Mass/Vol] 32.4 g/dL Normal 32.0-35.0 [facility] Comment on above: Order Comment: No: D o not add to previous draw Performed By: #### 5 0103 #### [facility] [address] [place] [address], [facility] MCV (RBC) [Entitic vol] 98.8 fL High 82.0-98.0 [facility] Comment on above: Order Comment: No: D o not add to previous draw Performed By: #### 5 0103 #### [facility] [address] [place] [address], [facility] Monocytes (Bld) [#/Vol] 0.6 10*3/uL Normal 0.1-1.0 [facility] Comment on above: Order Comment: No: D o not add to previous draw Performed By: #### 5 0103 #### [facility] [address] [address], [facility] MONOS 11.9 % Normal 5.0-12.0 [facility] Comment on above: Order Comment: No: D o not add to previous draw Performed By: #### 5 0103 #### [facility] [address] [place] [address], [facility] Neutrophils/100 WBC (Bld) 53.4 % Normal 40.0-72.0 [facility] Comment on above: Order Comment: No: D o not add to previous draw Performed By: #### 5 3 #### [facility] [address] [place] [address], [facility] Nucleated RBC/100 WBC (Bld) [Ratio] 0 % Normal 0-0 [facility] Comment on above: Order Comment: No: D o not add to previous draw Performed By: #### 5 0103 #### [facility] [address] [place] [id number], [facility] PLAT CNT 179 10*3/uL Normal 150-400 [facility] Comment on above: Order Comment: No: D o not add to previous draw Performed By: #### 5 0103 #### [facility] [address] [address], [facility] RBC (Bld) [#/Vol] 3.34 10*6/uL Low 3.80-5.00 [facility] Comment on above: Order Comment: No: D o not add to previous draw Performed By: #### 5 0103 #### [facility] [address] [place] [id number], [facility] WBC (Bld) [#/Vol] 4.87 10*3/uL Normal 4.00-10.60 [facility] Comment on above: Order Comment: No: D o not add to previous draw Performed By: #### 5 0103 #### [facility] [address] [place] [id number], [facility] POTASSIUM BLOODon 05-18-2021 Potassium [Moles/Vol] 3.7 mmol/L Normal 3.5-5.1 [facility] Comment on above: Order Comment: No: D o not add to previous draw Performed By: #### 4 1406 #### [facility] [address] [place] [address], [facility] Cardiovascular Lab Reporton 05-17-2021 Cardiovascular Lab Report [facility] MR #: [id number] Department of Physician: Regino Hernadez MD Medicine Service Date: 05/17/2021 Division of Birthdate: 1950 Cardiology Room #: Adult Cardiovascular Services [facility] [address] [place] [address] Cardiovascular Laboratory Report ATRIAL FIBRILLATION ABLATION PROCEDURE NOTE DATE OF PROCEDURE: 05/17/2021 PERFORMING PHYSICIAN: Dr. Regino Hernadez CONSENT: Patient NAME OF THE PROCEDURE: Pulmonary Vein Isolation and Comprehensive EP study. INDICATIONS FOR PROCEDURE: 1. Persistent atrial fibrillation non responsive to pharmacologic therapy. PROCEDURES PERFORMED: 1. Sonosite guided venous access as noted below and images stored. 2. Comprehensive EP study and catheter ablation for persistent atrial fibrillation through the pulmonary vein isolation technique. This includes right atrial recording and pacing, His bundle recording and right ventricular recording and pacing. 3. Intracardiac EP 3D mapping. 4. Intracardiac echocardiogram 5. Left atrial and coronary sinus recording and pacing to assess ablation results. 6. Left heart pressure measurements and LV pacing and recording. 7. Induction of arrhythmia and testing of ablation results using intravenous adenosine infusion. 8. Fluroscopy. FLUROSCOPY: 2 minutes 39 seconds/ 20 mGy. PROCEDURE NOTE: 70-year-old lady with a history of atrial fibrillation, who had previously cardioverted while she was on amiodarone. 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 She presented for atrial fibrillation ablation. On the day she presented, she was noted to be in sinus rhythm, hence DEVIKA was deferred. Risks, benefits and alternatives of the procedure were discussed with the patient and family who agreed to proceed. Please refer to my consult note for details of the discussion and of indications. The patient was brought to the EP lab and a procedural pause was performed identifying the patient, the procedure. DEVIKA was not performed. Both the groins were then prepared and draped. Ultrasound was used to determine the course and patency of the femoral veins on both sides and they were noted to be patent and the image stored in PACS. After infiltration with 1% lidocaine, 4 venous sheaths were placed in the right as noted below and a radial arterial line was placed by Anesthesia team. RFV: 8Fx4 ThermoCool SF Bi-Directional over SL1/ Vizigo, SL1:Pentarajanette, ICE catheter. 8Fx1 CS Catheter (EZ Steer) 10,000U Heparin bolus was given followed by continuous intravenous drip to target ACT around 350. An intracardiac ultrasound catheter was inserted into the right atrium to examine the right atrial anatomy, atrial septum, pulmonary vein anatomy and to monitor for pericardial effusion and guide transseptal access. At baseline, there was no pericardial effusion and no EZ clot. Esophagus was mapped using the VibeaseSOUND 3D mapping software and noted to be towards the LSPV. Double transseptal access technique was used to cross to the left side. Following the first transeptal access, which was achieved via puncture of the thinner aspect of the septum using Garret needle, Pentaray catheter was placed in the left atrium. LA pressures were noted to 24/9 mmHg at baseline and with 600ms pacing it was 33/10mmHg and 400ms and 45ms pacing there was 2:1 block. LV pacing revealed no VA conduction. A second transseptal access was then achieved. With repeat access, SL1 sheath was exchanged over a wire to 8.5F Vizigo sheath. Pulmonary vein and left atrial anatomic mapping were performed using a 3-D CARTO computer-based mapping system and this revealed normal LA voltage. Identification of the pulmonary vein ostia was assisted by the left atrial signals on the ablation catheter, the ICE catheter and the Pentaray catheter placed in the individual pulmonary veins. A temperature probe was placed in the esophagus to monitor and avoid rise of temperature by more than a degree Celsius and during ablation. Wide area circumferential ablation technique (WACA) was then performed. Power settings were 40watts with 10-12s in the anterior aspect of WACA and 5-8s while ablating on the posterior wall as well as the roof. Following left WACA, entrance block was observed. The esophagus was mapped to be on toward the left pulmonary vein and the baseline temperature 35.4 and the max was 36.7C when ablation was performed. Right sided PVI was then performed using a WACA approach with care to pace the anterior aspect of WACA and carri to ensure there was no phrenic capture. Upon completion of the right sided WACA, entrance block was noted. Thereafter perivenous pacing confirmed isolation. In the end, all pulmonary veins were isolated. Adenosine was (more content not included)... Normal [facility] POC GLUCOSE LABon 05-17-2021 Glucose [Mass/Vol] 92 mg/dL Normal 70-100 [facility] Comment on above: Performed By: #### 8 [id number] #### [facility] [address] [place] [address], [facility] BASIC METABOLIC PANELon 03-3 Calcium [Mass/Vol] 8.7 mg/dL Normal 8.6-10.3 [facility] Comment on above: Performed By: #### 0 0071 #### [facility] [address] [place] [address], [place] Chloride [Moles/Vol] 103 mmol/L Normal 98-107 [facility] Comment on above: Performed By: #### 0 0071 #### [facility] [address] [place] [address], [place] CO2 [Moles/Vol] 26 mmol/L Normal 21-31 [facility] Comment on above: Performed By: #### 0 0071 #### [facility] [address] [place] [address], [place] Creatinine [Mass/Vol] 0.86 mg/dL Normal 0.60-1.20 [facility] Comment on above: Performed By: #### 0 0071 #### [facility] [address] [place] [address], [place] GFR/1.73 sq M.predicted among blacks MDRD (S/P/Bld) [Vol rate/Area] mL/min/{1.73_m2} Normal >60 [facility] Comment on above: Result Comment: Calc ulation may not be valid for patients over 70 years Performed By: #### 0 0071 #### [facility] [address] [place] [address], [place] GFR/1.73 sq M.predicted among non-blacks MDRD (S/P/Bld) [Vol rate/Area] mL/min/{1.73_m2} Normal >60 [facility] Comment on above: Result Comment: Calc ulation may not be valid for patients over 70 years Performed By: #### 0 0071 #### [facility] [address] [place] [place] [address], [facility] Glucose [Mass/Vol] 84 mg/dL Normal 70-100 [facility] Comment on above: Performed By: #### 0 0071 #### [facility] [address] [facility] [place] [place] [address], [facility] Potassium [Moles/Vol] 4.0 mmol/L Normal 3.5-5.1 [facility] Comment on above: Performed By: #### 0 0071 #### [facility] [address] [place] [place] [address], [place] Sodium [Moles/Vol] 137 mmol/L Normal 136-145 [facility] Comment on above: Performed By: #### 0 0071 #### [facility] [address] [place] [address], [facility] Urea nitrogen [Mass/Vol] 19 mg/dL Normal 7-25 [facility] Comment on above: Performed By: #### 0 0071 #### [facility] [address] [facility] [place] [place] [address], [facility] CTA CHESTon 05-10-2021 CTA CHEST [facility] Department of Radiology [address] [place] [id number] Patient Name: PENNY DIANE : 1950 Sex: F Age: Race: White Pt. Location: Patient Status: D Ordered Date: 04/02/2021 2:15:00 PM Completed Date: 05/10/2021 11:34 AM Requesting Provider: REGINO HERNADEZ Attending Provider: REGINO HERNADEZ Report Copy To: TY THOMAS Signs & Symptoms: I48.0 Paroxysmal atrial fibrillation I10 History: [place] labs done 04-17-21 outside faculty they are scanned in ablation 05/17/21 Comments: , ablation 05/17/21 , ablation 05/17/21 , , , Ordering Provider - REGINO HERNADEZ MD , Exam: CTA CHEST CTA CHEST 05/10/2021 11:34 AM SIGN AND SYMPTOMS: I48.0 Paroxysmal atrial fibrillation I10 TECHNOLOGIST COMMENTS: pre ablation Afib QUESTIONS PER RADIOLOGIST: , ablation 05/17/21 , ablation 05/17/21 , , , Ordering Provider - REGINO HERNADEZ MD , PROTOCOL: Axial CT angiography images were obtained with IV contrast. CONTRAST: Contrast: OMNIPAQUE 350 (LOCM), 100 milliliter, Intravenous TECHNIQUE: Multidetector CT axial slices of the chest were obtained with IV contrast. Multiplanar reformats were performed and viewed on a separate workstation and reviewed to further define anatomy and possible pathology. COMPARISON: None. FINDINGS: Lower neck: Thyroid gland normal. No adenopathy Vessels: Minimal dilatation of the thoracic aorta up to 3.6 cm No atherosclerotic changes in the aorta. and coronary arteries. Mediastinum and Wendi: The esophagus is dilated and contrast filled to the GE junction Heart: Normal size but the left atrium and to a lesser extent the left ventricle are prominent.. Airways: Normal Lungs: Normal Pleura: No effusion Chest Wall: Normal Upper Abdomen: Normal Bones: Normal Left atrial mapping: Right upper lobe pulmonary artery: Ostium measures 13.5 mm. Distance to the first tributary 18.2 mm. Right middle lobe pulmonary vein: Ostium measures 7.1 mm distance to the first tributary 25.7 mm. Right lower lobe pulmonary vein: Ostium measures 14.9 mm. Distance to the first tributary 11.2 mm Left upper lobe pulmonary vein: Ostium is 14.8 mm distance to the first tributary 13.8 mm. Left lower lobe pulmonary vein: Ostium is 11.3 mm distance to the first branch 12.9 mm.Lingular tributary appears to be the first tributary of the left upper lobe pulmonary vein IMPRESSION: Pulmonary venous mapping measurements given above. {Any pertinent findings including lung nodule recommendations. If a lung nodule is described without known malignancy, an autotext of the Fleishner Society guidelines for appropriate follow-up should be included in the dictation.} Electronically signed: Charlie Prince. Transcribed by: [id number], User Resident: Electronically Signed by: CHARLIE PRINCE @ 05/14/2021 11:31 AM Normal [facility] Comment on above: Order Comment: , abl ation 05/17/21 , ablation 05/17/21 , , , Ordering Provider - REGINO HERNADEZ MD , HEMATOCRITon 05-10-2021 Hematocrit (Bld) [Volume fraction] 36.0 % Normal 36.0-45.0 [facility] Comment on above: Performed By: #### 8 [id number] #### [facility] [address] HEMOGLOBINon 05-10-2021 Hemoglobin (Bld) [Mass/Vol] 12.2 g/dL Normal 12.0-15.0 [facility] Comment on above: Performed By: #### 8 [id number] #### [facility] [address] WBC, WHITE BLOOD CELL COUNTo n 05-10-2021 WBC (Bld) [#/Vol] 4.81 10*3/uL Normal 4.00-10.[address] [facility] Comment on above: Performed By: #### 8 [id number] #### [facility] [address] [place] [address], [facility] XR WRIST RIGHT (MIN 3 VIEWS) on 06-05-2018 XR WRIST RIGHT (MIN 3 VIEWS) EXAMINATION: 3 XRAY VIEWS OF THE RIGHT WRIST 06/05/2018 5:55 pm COMPARISON: None. HISTORY: ORDERING SYSTEM PROVIDED HISTORY: Right wrist pain TECHNOLOGIST PROVIDED HISTORY: Right wrist pain FINDINGS: Osteopenia is noted. There is borderline widening of the scapholunate space. There is no gross malalignment. There is no acute fracture. Vascular calcifications are noted IMPRESSION: No acute osseous abnormality Interpreted by: Gorge Key MD Signed by: Gorge Key MD 06/05/18 Final result Normal [facility] Vital Signs Date Time Vital Sign Value Performing Clinician Facility 03-13-2023 14:00-0500 Body height 165.1 cm Joaquínnick Crewsdiff Other [facility] Other 03-13-2023 14:00-0500 Body mass index (BMI) [Ratio] 29.15 kg/m2 Joaquínnick Crewsdiff Other [facility] Other 03-13-2023 14:00-0500 Body weight 79.47 kg Joaquínnick Crewsdiff Other [facility] Other 03-13-2023 14:00-0500 Diastolic blood pressure 77 mm[Hg] Joaquín Maria Other [facility] Other 03-13-2023 14:00-0500 Respiratory rate 18 /min Joaquín Crow Other [facility] Other 03-13-2023 14:00-0500 SaO2% (BldA) [Mass fraction] 99 % Joaquín Crow Other [facility] Other 03-13-2023 14:00-0500 Systolic blood pressure 122 mm[Hg] Joaquín Maria Other [facility] Other 03-04-2023 14:00-0500 Body height 165.1 cm Med Briggs Other [facility] Other 03-04-2023 14:00-0500 Body mass index (BMI) [Ratio] 29.04 kg/m2 Med Sundeep Other [facility] Other 03-04-2023 14:00-0500 Body weight 79.15 kg Med Briggs Other [facility] Other 03-04-2023 14:00-0500 Diastolic blood pressure 70 mm[Hg] Med Briggs Other [facility] Other 03-04-2023 14:00-0500 SaO2% (BldA) [Mass fraction] 95 % Med Sundeep Other [facility] Other 03-04-2023 14:00-0500 Systolic blood pressure 111 mm[Hg] Med Sundeep Other [facility] Other 12-04-2022 13:15-0400 Body height 165.1 cm Viviana Williamson Other [facility] Other 11-21-2022 13:00-0400 Body height 165.1 cm Joaquín Maria Other [facility] Other 11-21-2022 13:00-0400 Body mass index (BMI) [Ratio] 28.19 kg/m2 Joaquín Maria Other [facility] Other 11-21-2022 13:00-0400 Body weight 76.84 kg Joaquín Maria Other [facility] Other 11-21-2022 13:00-0400 Diastolic blood pressure 73 mm[Hg] Joaquín Maria Other [facility] Other 11-21-2022 13:00-0400 Respiratory rate 18 /min Joaquín Maria Other [facility] Other 11-21-2022 13:00-0400 SaO2% (BldA) [Mass fraction] 98 % Joaquín Maria Other [facility] Other 11-21-2022 13:00-0400 Systolic blood pressure 120 mm[Hg] Joaquín Maria Other [facility] Other 09-17-2022 13:45-0400 Body height 165.1 cm Joaquín Maria Other Not Available 09-17-2022 13:45-0400 Body mass index (BMI) [Ratio] 28.84 kg/m2 Joaquín Maria Other Not Available 09-17-2022 13:45-0400 Body weight 78.61 kg Joaquín Maria Other Not Available 09-17-2022 13:45-0400 Diastolic blood pressure 74 mm[Hg] Joaquín Maria Other Not Available 09-17-2022 13:45-0400 Respiratory rate 18 /min Joaquín Maria Other Not Available 09-17-2022 13:45-0400 SaO2% (BldA) [Mass fraction] 98 % Joaquín Crewsdiff Other Not Available 09-17-2022 13:45-0400 Systolic blood pressure 109 mm[Hg] Joaquín Crewsdiff Other Not Available 08-06-2022 13:00-0400 Body height 165.1 cm Joaquín Maria Other [facility] Other 08-06-2022 13:00-0400 Body mass index (BMI) [Ratio] 28.27 kg/m2 Joaquín Maria Other [facility] Other 08-06-2022 13:00-0400 Body weight 77.07 kg Joaquín Maria Other [facility] Other 08-06-2022 13:00-0400 Diastolic blood pressure 83 mm[Hg] Joaquín Crewsdiff Other [facility] Other 08-06-2022 13:00-0400 Respiratory rate 18 /min Joaquín Crewsdiff Other [facility] Other 08-06-2022 13:00-0400 SaO2% (BldA) [Mass fraction] 94 % Joaquín Crewsdiff Other [facility] Other 08-06-2022 13:00-0400 Systolic blood pressure 129 mm[Hg] Joaquín Crewsdiff Other [facility] Other 04-18-2022 13:15-0500 Body height 165.1 cm Joaquín Maria Other [facility] Other 04-18-2022 13:15-0500 Body mass index (BMI) [Ratio] 28.6 kg/m2 Joaquín Crewsdiff Other [facility] Other 04-18-2022 13:15-0500 Body weight 77.97 kg Joaquín Maria Other [facility] Other 04-18-2022 13:15-0500 Diastolic blood pressure 74 mm[Hg] Joaquín Maria Other [facility] Other 04-18-2022 13:15-0500 Respiratory rate 18 /min Joaquín Maria Other [facility] Other 04-18-2022 13:15-0500 SaO2% (BldA) [Mass fraction] 99 % Joaquín Crewsdiff Other [facility] Other 04-18-2022 13:15-0500 Systolic blood pressure 106 mm[Hg] Joaquín Crewsdiff Other [facility] Other 01-10-2022 14:45-0500 Body height 165.1 cm Viviana Zeyadcyrus Other [facility] Other 12-04-2021 14:30-0400 Body height 165.1 cm Joaquín Maria Other [facility] Other 12-04-2021 14:30-0400 Body mass index (BMI) [Ratio] 27.34 kg/m2 Joaquín Crewsdiff Other [facility] Other 12-04-2021 14:30-0400 Body weight 74.53 kg Joaquín Crewsdiff Other [facility] Other 12-04-2021 14:30-0400 Diastolic blood pressure 72 mm[Hg] Joaquín Crow Other [facility] Other 12-04-2021 14:30-0400 Respiratory rate 18 /min Joaquín Joyaff Other [facility] Other 12-04-2021 14:30-0400 SaO2% (BldA) [Mass fraction] 99 % Joaquín Crewsdiff Other [facility] Other 12-04-2021 14:30-0400 Systolic blood pressure 112 mm[Hg] Joaquínnick Crewsdiff Other [facility] Other 11-08-2021 14:45-0400 Body height 165.1 cm Joaquín Maria Other [facility] Other 11-08-2021 14:45-0400 Body mass index (BMI) [Ratio] 27.47 kg/m2 Joaquín Maria Other [facility] Other 11-08-2021 14:45-0400 Body weight 74.89 kg Joaquín Maria Other [facility] Other 11-08-2021 14:45-0400 Diastolic blood pressure 112 mm[Hg] Joaquín Crewsdiff Other [facility] Other 11-08-2021 14:45-0400 Respiratory rate 18 /min Joaquín Maria Other [facility] Other 11-08-2021 14:45-0400 SaO2% (BldA) [Mass fraction] 99 % Joaquínnick Crewsdiff Other [facility] Other 11-08-2021 14:45-0400 Systolic blood pressure 160 mm[Hg] Joaquínnick Crewsdiff Other [facility] Other 09-27-2021 15:45-0400 Body height 165.1 cm Joaquín Crewsdiff Other [facility] Other 09-27-2021 15:45-0400 Body mass index (BMI) [Ratio] 28.6 kg/m2 Joaquín Crewsdiff Other [facility] Other 09-27-2021 15:45-0400 Body weight 77.96 kg Joaquín Crewsdiff Other [facility] Other 09-27-2021 15:45-0400 Diastolic blood pressure 71 mm[Hg] Joaquín Crewsdiff Other [facility] Other 09-27-2021 15:45-0400 Respiratory rate 18 /min Joaquín Crewsdiff Other [facility] Other 09-27-2021 15:45-0400 SaO2% (BldA) [Mass fraction] 100 % Joaquín Crewsdiff Other [facility] Other 09-27-2021 15:45-0400 Systolic blood pressure 123 mm[Hg] Joaquínnick Maria Other [facility] Other 08-16-2021 15:00-0400 Body height 165.1 cm Viviana Fitt Other [facility] Other 08-16-2021 15:00-0400 Body mass index (BMI) [Ratio] 30.13 kg/m2 Viviana Fitt Other [facility] Other 08-16-2021 15:00-0400 Body weight 82.15 kg Viviana Fitt Other [facility] Other 06-26-2021 15:00-0400 Body height 165.1 cm Viviana Fitt Other [facility] Other 06-26-2021 15:00-0400 Body mass index (BMI) [Ratio] 30.85 kg/m2 Viviana Fitt Other [facility] Other 06-26-2021 15:00-0400 Body weight 84.1 kg Viviana Fitt Other [facility] Other 05-15-2021 16:45-0400 Body height 165.1 cm Joaquínnick Maria Other [facility] Other 05-15-2021 16:45-0400 Body mass index (BMI) [Ratio] 32.45 kg/m2 Joaquín Maria Other [facility] Other 05-15-2021 16:45-0400 Body weight 88.45 kg Joaquín Maria Other [facility] Other 05-15-2021 16:45-0400 Diastolic blood pressure 65 mm[Hg] Joaquín Maria Other [employer] Other 05-15-2021 16:45-0400 Respiratory rate 16 /min Joaquín Maria Other [employer] Other 05-15-2021 16:45-0400 SaO2% (BldA) [Mass fraction] 98 % Joaquín Maria Other [employer] Other 05-15-2021 16:45-0400 Systolic blood pressure 113 mm[Hg] Joaquín Maria Other [employer] Other 04-19-2021 14:45-0500 Body height 165.1 cm Viviana Fitt Other [employer] Other 04-19-2021 14:45-0500 Body mass index (BMI) [Ratio] 32.5 kg/m2 Viviana Fitt Other [employer] Other 04-19-2021 14:45-0500 Body weight 88.59 kg Viviana Fitt Other [employer] Other 04-09-2021 16:45-0500 Body height 165.1 cm Joaquín Maria Other [employer] Other 04-09-2021 16:45-0500 Body mass index (BMI) [Ratio] 32.53 kg/m2 Joaquín Maria Other [employer] Other 04-09-2021 16:45-0500 Body weight 88.68 kg Joaquín Maria Other [employer] Other 04-09-2021 16:45-0500 Diastolic blood pressure 68 mm[Hg] Joaquín Maria Other [employer] Other 04-09-2021 16:45-0500 Respiratory rate 18 /min Joaquín Maria Other [employer] Other 04-09-2021 16:45-0500 SaO2% (BldA) [Mass fraction] 100 % Joaquín Maria Other [employer] Other 04-09-2021 16:45-0500 Systolic blood pressure 115 mm[Hg] Joaquín Crow Other [facility] Other Encounters Encounter Date Encounter Type Care Provider Facility Start: 04-09-2023 End: 04-09-2023 ambulatory ELIAS Luiz DOMINGO Not Available Start: 03-25-2023 End: 03-25-2023 ambulatory JIMI [facility] Start: 03-13-2023 End: 03-13-2023 ambulatory Ty [facility] Other Start: 03-13-2023 Follow-up encounter Joaquín [facility] Start: 03-05-2023 Telephone encounter Elias Luiz Domingo DO Work Phone: [facility] Start: 03-04-2023 End: 03-04-2023 ambulatory Med Briggs Facility:[facility] Start: 03-04-2023 End: 03-04-2023 Patient encounter procedure DO Ty House Work Phone: [facility] Work Phone: Start: 03-04-2023 End: 03-04-2023 ambulatory DO Ty Thomas Work Phone: [facility] Work Phone: Start: 03-04-2023 Office outpatient ne w 60 minutes Med Briggs [facility] Start: 01-09-2023 Registered Recurring DO Jr s House Work Phone: [facility] Work Phone: Start: 01-09-2023 End: 01-09-2023 Patient encounter procedure DO Ty House Work Phone: [facility] Work Phone: Start: 12-04-2022 (Graphic Artist) Graphic Artist Viviana christianson [facility] Start: 12-04-2022 End: 12-04-2022 ambulatory Viviana Williamson Other [employer] Other Start: 11-21-2022 End: 11-21-2022 ambulatory Joaquín Maria Other [employer] Other Start: 11-21-2022 Follow-up encounter Joaquín [facility] Start: 11-19-2022 End: 11-19-2022 ambulatory Joaquín Maria Other [employer] Other Start: 11-19-2022 Telephone encounter Joaquín [facility] Start: 09-17-2022 End: 09-17-2022 ambulatory Joaquín Maria Other Not Available Start: 09-17-2022 Follow-up encounter Joaquín christianson [facility] Start: 08-21-2022 End: 08-21-2022 ambulatory [facility] Start: 08-06-2022 End: 08-06-2022 ambulatory Joaquín Maria Other [facility] Other Start: 08-06-2022 Follow-up encounter Joaquín christianson [facility] Start: 06-19-2022 End: 06-20-2022 ambulatory JIMI [facility] Facility: Start: 06-11-2022 End: 06-11-2022 ambulatory [facility] Start: 04-24-2022 End: 04-24-2022 ambulatory Viviana Clay Other [facility] Other Start: 04-24-2022 Telephone encounter Viviana cuellar [facility] Start: 04-22-2022 ambulatory [facility] Start: 04-22-2022 End: 04-22-2022 ambulatory [facility] Start: 04-19-2022 End: 04-19-2022 [facility] Start: 04-18-2022 End: 04-18-2022 ambulatory Joaquín Maria Other [facility] Other Start: 04-18-2022 Follow-up encounter Joaquín [facility] Start: 04-11-2022 (Graphic Artist) Graphic Artist Viviana [facility]ians[facility] Start: 04-11-2022 End: 04-11-2022 ambulatory Viviana Williamson Other [facility] Other Start: 04-10-2022 End: 04-11-[address] TY THOMAS Facility:[facility] Start: 03-22-2022 End: 03-26-2022 Evaluation and management of inpatient DR TY THOMAS Facility:[facility] Start: 01-22-2022 End: 01-23-2022 ambulatory REGINO HERNADEZ Facility:[facility] Start: 01-10-2022 End: 01-10-2022 ambulatory Viviana Williamson Other [facility] Other Start: 01-10-2022 IBT for Obesity subQ 15 min (Max charge 2 units) Viviana Williamson [facility] Start: 12-04-2021 End: 12-04-2021 ambulatory Joaquín Maria Other [facility] Other Start: 12-04-2021 Follow-up encounter Joaquín christianson [facility] Start: 11-08-2021 End: 11-08-2021 ambulatory Joaquín Maria Other [facility] Other Start: 11-08-2021 Follow-up encounter Joaquín christianson [facility] Start: 10-09-2021 End: 10-10-2021 ambulatory JACI MARSH Facility:[facility] Start: 09-27-2021 End: 09-27-2021 ambulatory Joaquín Crewsdiff Other [facility] Other Start: 09-27-2021 Follow-up encounter Joaquínnick Crewsdipablo [facility] Start: 09-05-2021 End: 09-06-2021 ambulatory JACI MARSH Facility: Start: 08-24-2021 ambulatory ELANA ESTES Facility:[facility] Start: 08-16-2021 ([facility] FU) [facility] U Registerd Graphic Artist Viviana Williamson [facility] Start: 08-16-2021 End: 08-16-2021 ambulatory Viviana Jefferst Other [facility] Other Start: 08-15-2021 End: 08-16-2021 ambulatory REGINO HERNADEZ Facility: Start: 07-16-2021 Encounter for other preprocedural examination [facility] Start: 07-16-2021 Encounter for preprocedural laboratory examination JACI [facility] Start: 07-11-2021 End: 07-12-2021 ambulatory REGINO MAGANAO Facility:[facility] Start: 07-09-2021 End: 07-10-2021 ambulatory JACI MARSH Facility: Start: 07-09-2021 End: 07-10-2021 Encounter for other preprocedural examination JACI SALMA Facility: Start: 07-04-2021 End: 07-04-2021 ambulatory Joaquínnick Crewsdiff Other [facility] Other Start: 07-04-2021 Telephone encounter Joaquín Maria Chente [facility] Start: 06-26-2021 ([facility]) [facility] U Registerd Graphic Artist Viviana Williamson [facility] Start: 06-26-2021 End: 06-26-2021 ambulatory Viviana Jefferst Other [facility] Other Start: 06-26-2021 Telephone encounter Joaquín christianson [facility] Start: 06-04-2021 End: 06-04-2021 ambulatory Viviana Williamson Other [facility] Other Start: 06-04-2021 Telephone encounter Viviana Randhawa [facility] Start: 05-28-2021 End: 05-28-2021 ambulatory Joaquín Maria Other [employer] Other Start: 05-28-2021 Telephone encounter Joaquín christianson [facility] Start: 05-24-2021 End: 05-24-2021 ambulatory Vivianakristine Jefferst Other [facility] Other Start: 05-24-2021 Telephone encounter Viviana Williamson [facility] Start: 05-17-2021 End: 05-18-2021 ambulatory [facility] Start: 05-15-2021 End: 05-15-2021 ambulatory Joaquín Maria Other [facility] Other Start: 05-15-2021 Follow-up encounter Joaquín christianson [facility] Start: 05-09-2021 End: 05-09-2021 ambulatory Joaquín Maria Other [facility] [facility] Other Start: 05-09-2021 Telephone encounter Joaquín christianson [facility] Start: 04-19-2021 ([facility] Init ial Provider Viviana Williamson [facility] Start: 04-19-2021 End: 04-19-2021 ambulatory Viviana Jefferst Other [facility] Other Start: 04-09-2021 End: 04-09-2021 ambulatory Joaquín Maria Other [facility] Other Start: 04-09-2021 Follow-up encounter Joaquín [facility] Start: 06-05-2018 End: 06-08-2018 Patient encounter procedure SR TY Morel [facility] Procedures Date Procedure Procedure Detail Performing Clinician Start: 08-21-2022 Follow-up visit Follow-up JIMI LUGO Start: 06-05-2018 Radex wrist complete minimum 3 views SR HOUSE Plan of Treatment Date Care Activity Detail Author Start: 04-09-2023 End: 04-09-2023 Patient encounter procedure 04/09/2023 3:00 PM EST Office Visit [facility] DEVIN ALVAREZ [address] [place] [id number] Elias Domingo DO [address] [place] [address] [facility] Start: 03-24-2023 Pneumococcal Vaccine : 65+ Years (2 - PCV) Pneumococcal Vaccine: 65+ Years (2 - PCV) [facility] Start: 10-11-2022 Influenza vaccination Influenza Vacc ine (#1) [facility] Start: 1989 Screening for malign ant neoplasm of breast Mammogram [facility] Start: 1950 Screening for malign ant neoplasm of colon [facility] Immunizations Immunization Date Immunization Notes Care Provider Fa cility 01-01-2022 influenza virus vaccine, unspecified formulation Elias Domingo DO Work Phone: [facility] 04-17-2020 COVID-19 Vaccine Ehsan - Documentation Purposes Only Joaquín Maria Other [employer] Other Payers Date Payer Category Payer Private Health Insurance [id number] 2016 Medicare [id number] 1960 Medicare [id number] 2.1 [id number] 1959 Private Health Insurance [id number] 1959 Self-pay 1950 Unknown [id number] 2.16.8 [id number] 1949 Unknown [id number] 2.16.8 [id number] 1949 Unknown [id number] 2.16.8 40.1.547624.3.579.2.647 1949 Unknown [id number] 2.16.8 40.1.742790.3.579.2.647 1949 Unknown [id number] 2.16.84 0.1.444673.3.579.2.593 1949 Unknown [id number] 2.16.84 0.1.366866.3.579.2.593 1949 Unknown [id number] 2.16.84 0.1.242600.3.579.2.593 1949 Unknown [id number] 2.16.84 0.1.282238.3.579.2.593 1949 Unknown [id number] 2.16.84 0.1.242245.3.579.2.593 1949 Unknown [id number] 2.16.84 0.1.806051.3.579.2.593 1949 Unknown [id number] 2.16.84 0.1.230362.3.579.2.593 1949 Unknown [id number] 2.16.84 0.1.194971.3.579.2.593 1949 Unknown [id number] 2.16.84 0.1.993015.3.579.2.1259 Unknown [id number] 2.16.84 0.1.963509.3.579.2.593 Unknown [id number] 2.16.8 40.1.353874.3.579.2.531 Unknown [id number] 2.16.8 40.1.490561.3.579.2.531 Social History Date Type Detail Facility Unknown if ever smoked [facility] Other Sex Assigned At [facility] Other Start: 1950 Sex Assigned At Female F [facility] Tobacco smoking status NHIS Tobacco smoking consumption unknown [facility] Start: 1950 Sex Assigned At Not on file [facility] Clinical Notes 04-09-2021 to 03-25-2023 Telephone Encounter - Julian Nielsen - 03/19/2023 1:58 PM ESTTelephone Encounter - Julian Nielsen - 03/19/2023 1:58 PM ESTTelephone Encounter - Julian Nielsen - 03/06/2023 5:59 PM EST Note Date & Type Note Facility 03-25-2023 Note Patient here for 6 m o follow up persistent afib, chronic systolic heart failure, valve disorder, and hypertension. She is scheduled for routine device check next month. Denies chest pain, SOB, palpitations, lightheadedness/syncope, and bleeding on Xarelto. Review of Systems Respiratory: Positive for cough. All other systems reviewed and are negative. [facility] 03-25-2023 Note [place] Electrophysiology Note [facility] Reason for Consultation: 6 month follow up, s/p AVN ablation HPI: She is here for follow-up states she continues to feel well , LE edema is mild and improved compared to last exam She denies chest pain, shortness of breath, WEAVER, orthopnea. EKG 06/19/2022 biventricular pacing 04/22/2022 biventricular pacing, 85 bpm 08/20/2021 shows A. fib with controlled ventricular rate 06/27/20 Afib VR 113 02/07/2021 shows sinus rhythm --- 04/19/22 HPI: Penny is a 71 year old female with a pmh of afib s/p PVI ablation 05/2021 + Posterior box isolation+ Ablation of posterior wall on 07/2021, atrial flutter s/p CTI ablation with bidirectional block 07/2021, HFrEF d/t dilated cardiomyopathy with recent echo 03/22/22 showing EF 40-45% She is here for HP and consent for AVN ablation s/p [employer]-P 01/21/22 She has been doing well since pacemaker placement Recent device check 03/05/22 shows normal device function with normal thresholds - underlying rhytb afib - RV/LV paced 18% She had a recent admission to [facility] for acute decompensated CHF with A-fib RVR and had her daily lasix increased to 40mg BID on dischage. She has been feeling much better since admission and has no complains of chest pain, WEAVER, orthopnea. --- Previous per Dr. Hernadez 10/30/21: HPI: Penny Diane is a 72 y.o. year old pt of Dr Thomas was noted to be in atrial fib and treated with cardizem and xarelto anticoagulation. 05/11/20. On may 11 she noted increased fatigue and exercise intolerance- states just to walk trash can to the road and back was too much, harder to walk up 1 flight of stairs and took a long time to make her bed. Went to ED and was noted to be in A fib and was rate managed with diltiazem. She was brought to [facility] for DCCV and perforemd by Dr Turner on 06/02/20. She converted to SR and subsequently was admitted to [facility] with ADHF and pulm edema. She was diuresed and felt better. Patient was in NSR after the DCCV until the next day. She went back into A fib felt SOB and exhausted with exertion. She feels she is in persistant Afib. She had developed some rash while she was on amiodarone and this was stopped but during the rash persisted despite that. She was started on triamcinolone steroid cream which she uses still which is helped. She is feeling good in sinus rhythm. She has some dementia and so her significant other was next to her during the visit. Patient underwent initial A. fib ablation on 05/17/2021 and a PVI alone was performed. Subsequently she was noted to have recurrence of atrial flutter and was taken to the EP lab on 07/11/2021. She was noted to have a tachycardia that was organized with a cycle length of 180 ms which was organized on the right side and more like atrial fibrillation on the left side. The pulmonary veins were isolated so I proceeded to perform posterior box isolation along with CTI ablation. Despite these measures she had was noted to have A. fib with recurrence as evident on recent event monitor which shows Afib with RVR. I have suggested PPM+AVN ablation at this time. [facility] cardiac rehab staff says her HR is always in the 130's . She had recent sleep study and will be getting a cpap machine in 4-6 weeks. EP study 07/11/2021 LA baseline (mmHg) 1st 26/8 LA 600ms pacing (mmHg) NA LA 400ms pacing (mmHg) NA AHms 83 HVms 43 VERPms 600/310, VA conduction - AV Wenkebach ms 500 AH jump ms NA AVNERP ms NA AERP ms 600/240 POST PROCEDURE DIAGNOSIS 1. Persistent atrial fibrillation s/p PVI (WACA)+ Posterior box isolation+ Ablation of posterior wall. 2. Atrial flutter s/p CTI ablation with bidirectional block. 3. Mildly elevated LA pressures indicative of HFpEF. 4. EP study revealing no VA conduction. EP study 05/17/2021 POST PROCEDURE DIAGNOSIS 1. Persistent atrial fibrillation s/p PVI (WACA). 2. Non sustained Atrial flutter. 3. EP study revealing no VA conduction. 4. No inducible arrhythmia with Adenosine. 5. High LA filling pressures with tachycardia suggestive of HFpEF. 6. Normal LA voltage 7. 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 PMH: atrial fib- new onset. HTN PSH: Cholecystectomy- no pertinent cardiac surgery or invasive procedures FMH: Mother- HTN, Lymphoma; Sister- Lung CA Social: Former smoker 1 ppd, x20 years, quit in 1994; Denied illicit drug use, 1 glass wine spritzer/ night PMH: Past Medical History: Diagnosis Date Arrhythmia CHF (congestive heart failure) (CMS/HCC) PSH: Past Surgical History: Procedure Laterality Date ABLATION OF DYSRHYTHMIC FOCUS CARDIOVERSION 07/19/[address] CHEST ANGIOGRAM W AND/OR WO IV CONTRAST 05/14/2021 CT CHEST ANGIOGRAM W AND/OR WO IV CONTRAST STEVE CONVERSION (more content not included)... [facility] 03-19-2023 Telephone encounter Note Patient is scheduled. [facility] 03-19-2023 Miscellaneous Notes Patient is scheduled. (1st call) left voicemail Images from the original note were not included. Referral approved Calling patient [facility] received a referral for this patient. Dx: shari blair / [facility] INSURANCE: medicare Referral is in [facility] for review. 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 Referral approved [facility]ing [id number] Telephone encounter Note* Telephone Encounter - Julian Morales - 03/05/2023 5:10 PM EST [facility] received a referral for this patient. Dx: inspire consult / nuria - [facility] INSURANCE: medicare Referral is in [facility]. [id number] Evaluation note* Encounter Date Diagnosis Assessment Notes Treatment Notes Treatment Clinical Notes Feb, Obstructive sleep apnea (ICD-10 - G47.33) She had obstructive sleep apnea documented in August 2021 with an apnea hypopnea index of 59 events per hour. She had significant hypoxia associated with this. She was titrated on CPAP and was prescribed 11 cm, but she has had difficulty using this every night and all night. She is interested in [employer]ire Therapy. (See below). In the meantime we will work to try to find mask, headgear, and possibly chinstrap interventions to deal with ongoing use issues. I encouraged her to use the machine every night, all night. We will also change from fixed pressure CPAP 11 cm to auto CPAP minimum 5 maximum 12, which may help both with toleration and with leak Feb, Intolerance of continuous positive airway pressure (CPAP) ventilation (ICD-10 - Z78.9) While the pressure is not an issue, the headgear, mask, leakage, and hassle of all made it hard for her to use the machine all the time. Current compliance is only 73% over 4 hours. We extensively discussed this intervention and she does request referral. I reviewed the qualification criteria, the advantages and disadvantages, the roadmap for implementation, and the follow-up required for Inspire Therapy. We also discussed success rates, with complete resolution about 70% of the time and with roughly 10% of the patients not being successfully controlled using inspire. She does request local referral Feb, Atrial fibrillation, unspecified type (ICD-10 - I48.91) There is a strong association between untreated obstructive sleep apnea and incidence of atrial fibrillation. In addition recurrence rates after cardioversion are nearly doubled in atrial fibrillation patients with untreated NURIA, so controlling the patient''s sleep apnea could have positive effects. Feb, Chronic systolic congestive heart failure (ICD-10 - I50.22) There is a strong, bidirectional relationship between congestive heart failure and severe sleep apnea. Patients with CHF will have sleep apnea a full 60% of the time, and controlling sleep apnea can have a substantial effect on cardiac function after hypoxia and catecholamine overload caused by recurring apneas are controlled. Feb, BMI 29.0-29.9,adult (ICD-10 - Z68.29) Weight reduction would be broadly beneficial for overall health, but would also have direct benefits on apnea severity and sleep quality. Even moderate weight reduction can affect NURIA and snoring, and in some patients weight reduction can completely resolve sleep apnea Feb, Essential hypertension (ICD-10 - I10) Uncontrolled sleep apnea can significantly increase blood pressures, and there is a strong association between untreated apnea and requiring multiple medications for hypertension treatment. Control of sleep apnea will frequently have a positive effect on blood pressure control, and may additionally reduce blood pressure lability. Feb, Cardiac pacemaker (ICD-10 - Z95.0) With presence of both dual-chamber pacemaker and an inspire device, preliminary activation would need to be undertaken at the filling station equipment mechanic office while heart rhythm and pacing parameters are monitored. Feb, Other The diagnosis o f Sleep Apnea was reviewed in detail. The patient expresses good understanding, We also reviewed the medical and accident risks associated with sleep apnea and excessive fatigue. The patient is advised to adhere to a proper sleep hygiene schedule and to assure adequate total sleep time; The patient was advised to continue efforts at progressive weight loss, including decreased overall caloric intake quantity and better food choices.The patient was advised to call or return any difficulties arise, including changes in symptoms and/or problems with treatment [facility] Other 10-25-2023 Evaluation note* Encounter Date Diagnosis Assessment Notes Treatment Notes Treatment Clinical Notes Nov, Obesity, unspecified classification, unspecified obesity type, unspecified whether serious comorbidity present (ICD-10 - E66.9) Nov, BMI 32.0-32.9,adult (ICD-10 - Z68.32) Nov, Other Summary of Visi t: (A) encouraged meal timing to better control appetite; control binge episodes (B) discussed reflecting on binge episodes to identify triggers. Encouraged having a sweet food available that she could consume in moderation. Pt identified husbands chocolate cookie as good but not something she would over eat (C) discussed pt's goals of increasing strength. Encouraged sterngth exercises Patient set the following goals: - trial strength exercises 1-2 x/week in addition to cardiac rehab [facility] Other 10-12-2023 Evaluation note* Encounter Date Diagnosis Assessment Notes Treatment Notes Treatment Clinical Notes Nov, Prediabetes (ICD-10 - R73.03) Nov, Overweight (BMI 25.0 -29.9) (ICD-10 - E66.3) Nov, Hypercholesterolemia (ICD-10 - E78.00) Nov, Fatty liver (ICD-10 - K76.0) Nov, Binge eating (ICD-10 - R63.2) Nov, High blood pressure (ICD-10 - I10) Nov, Depression, unspecif ied depression type (ICD-10 - F32.9) Nov, Snores (ICD-10 - R06.83) Nov, Atrial fibrillation (ICD-10 - I48.91) Nov, CKD (chronic kidney disease) (ICD-10 - N18.9) Nov, Metabolic syndrome X (ICD-10 - E88.81) [facility] Other 08-08-2023 Evaluation note* Encounter Date Diagnosis Assessment Notes Treatment Notes Treatment Clinical Notes Sep, Prediabetes (ICD-10 - R73.03) Sep, Overweight (BMI 25.0 -29.9) (ICD-10 - E66.3) Sep, Hypercholesterolemia (ICD-10 - E78.00) Sep, Fatty liver (ICD-10 - K76.0) Sep, Binge eating (ICD-10 - R63.2) Sep, High blood pressure (ICD-10 - I10) Sep, Depression, unspecif ied depression type (ICD-10 - F32.9) Sep, Snores (ICD-10 - R06.83) Sep, Atrial fibrillation (ICD-10 - I48.91) Sep, CKD (chronic kidney disease) (ICD-10 - N18.9) Sep, Metabolic syndrome X (ICD-10 - E88.81) Not [id number] NotePatient is here today for a 2 month follow up Review of Systems Eyes: Positive for blurred vision. Right arm Cardiovascular: Positive for leg swelling. All other systems reviewed and are negative.[facility] 08-21-2022 NoteUT Electrophysiology Note [facility] Reason for Consultation: 3 month follow up s/p AVN ablation 04/22/22 HPI: She is here for follow-up 3 months s/p AVN ablation 04/2022 states she continues to feel well since procedure. She still has LE edema which is stable and chronic, it is mild to moderate. She denies chest pain, shortness of breath, WEAVER, orthopnea. EKG 06/19/2022 biventricular pacing 04/22/2022 biventricular pacing, 85 bpm 08/20/2021 shows A. fib with controlled ventricular rate 06/27/20 Afib VR 113 02/07/2021 shows sinus rhythm --- 04/19/22 HPI: Penny is a 71 year old female with a pmh of afib s/p PVI ablation 05/2021 + Posterior box isolation+ Ablation of posterior wall on 07/2021, atrial flutter s/p CTI ablation with bidirectional block 07/2021, HFrEF d/t dilated cardiomyopathy with recent echo 03/22/22 showing EF 40-45% She is here for HP and consent for AVN ablation s/p HY[employer] STRU[employer]URAL ENGINEER-P 01/21/22 She has been doing well since pacemaker placement Recent device check 03/05/22 shows normal device function with normal thresholds - underlying rhytb afib - RV/LV paced 18% She had a recent admission to [facility] for acute decompensated CHF with A-fib RVR and had her daily lasix increased to 40mg BID on dischage. She has been feeling much better since admission and has no complains of chest pain, WEAVER, orthopnea. --- Previous per Dr. Hernadez 10/30/21: HPI: Penny Diane is a 71 y.o. year old pt of Dr Thomas was noted to be in atrial fib and treated with cardizem and xarelto anticoagulation. 05/11/20. On may 11 she noted increased fatigue and exercise intolerance- states just to walk trash can to the road and back was too much, harder to walk up 1 flight of stairs and took a long time to make her bed. Went to ED and was noted to be in A fib and was rate managed with diltiazem. She was brought to [facility] for DCCV and perforemd by Dr Turner on 06/02/20. She converted to SR and subsequently was admitted to [facility] with ADHF and pulm edema. She was diuresed and felt better. Patient was in NSR after the DCCV until the next day. She went back into A fib felt SOB and exhausted with exertion. She feels she is in persistant Afib. She had developed some rash while she was on amiodarone and this was stopped but during the rash persisted despite that. She was started on triamcinolone steroid cream which she uses still which is helped. She is feeling good in sinus rhythm. She has some dementia and so her significant other was next to her during the visit. Patient underwent initial A. fib ablation on 05/17/2021 and a PVI alone was performed. Subsequently she was noted to have recurrence of atrial flutter and was taken to the EP lab on 07/11/2021. She was noted to have a tachycardia that was organized with a cycle length of 180 ms which was organized on the right side and more like atrial fibrillation on the left side. The pulmonary veins were isolated so I proceeded to perform posterior box isolation along with CTI ablation. Despite these measures she had was noted to have A. fib with recurrence as evident on recent event monitor which shows Afib with RVR. I have suggested PPM+AVN ablation at this time. [facility] cardiac rehab staff says her HR is always in the 130's . She had recent sleep study and will be getting a cpap machine in 4-6 weeks. EP study 07/11/2021 LA baseline (mmHg) 1st /8 LA 600ms pacing (mmHg) NA LA 400ms pacing (mmHg) NA AHms 83 HVms 43 VERPms 600/310, VA conduction - AV Wenkebach ms 500 AH jump ms NA AVNERP ms NA AERP ms 600/240 POST PROCEDURE DIAGNOSIS 1. Persistent atrial fibrillation s/p PVI ([facility])+ Posterior box isolation+ Ablation of posterior wall. 2. Atrial flutter s/p CTI ablation with bidirectional block. 3. Mildly elevated LA pressures indicative of HFpEF. 4. EP study revealing no VA conduction. EP study 05/17/2021 POST PROCEDURE DIAGNOSIS 1. Persistent atrial fibrillation s/p PVI ([facility]). 2. Non sustained Atrial flutter. 3. EP study revealing no VA conduction. 4. No inducible arrhythmia with Adenosine. 5. High LA filling pressures with tachycardia suggestive of HFpEF. 6. Normal LA voltage 7. 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 PMH: atrial fib- new onset. HTN PSH: Cholecystectomy- no pertinent cardiac surgery or invasive procedures FMH: Mother- HTN, Lymphoma; Sister- Lung CA Social: Former smoker 1 ppd, x20 years, quit in 1994; Denied illicit drug use, 1 glass wine spritzer/ night PMH: Past Medical History: Diagnosis Date Arrhythmia CHF (congestive heart failure) (CMS/HCC) PSH: Past Surgical History: Procedure Laterality Date ABLATION OF DYSRHYTHMIC FOCUS CARDIOVERSION 07/19/2020 CHOLECYSTECTOMY CTA CHEST W AND/OR WO IV CONTRAST 05/14 (more content not included)...[facility]06-27-2023 Evaluation note* Encounter Date Diagnosis Assessment Notes Treatment Notes Treatment Clinical Notes Jul, Prediabetes (ICD-10 - R73.03) Jul, Obesity (BMI 30.0-34 .9) (ICD-10 - E66.9) Jul, Binge eating (ICD-10 - R63.2) Jul, Hypercholesterolemia (ICD-10 - E78.00) Jul, Fatty liver (ICD-10 - K76.0) Jul, High blood pressure (ICD-10 - I10) Jul, Depression, unspecif ied depression type (ICD-10 - F32.9) Jul, Snores (ICD-10 - R06.83) Jul, Atrial fibrillation (ICD-10 - I48.91) Jul, CKD (chronic kidney disease) (ICD-10 - N18.9) Jul, Metabolic syndrome X (ICD-10 - E88.81) [facility] Other 05-10-2023 NotePatient here for follow up AV node ablation on 04/22/[address] Hernadez. Doing very well s/p ablation. Denies chest pain, SOB, and bleeding on Xarelto. Still going to cardiac rehab at [facility] a few times a week. LE edema is no more than usual for her she says. Did not have follow up BMP. Her device was interrogated in the office last week. Review of Systems Cardiovascular: Positive for leg swelling. All other systems reviewed and are negative.[facility] 06-19-2022 NoteUT Electrophysiology Note [facility] Reason for Consultation: 1 month follow up s/o AVN ablation HPI: She is here for follow-up 1 months s/p AVN ablation States she feels very well since the procedure. She feels like she has more energy and less fatigue. She still has LE edema which is stable and chronic, it is mild to moderate. She denies chest pain, shortness of breath, WEAVER, orthopnea. I discussed with her discontinuing Cardizem as that was only started for rate control with A-fib and given she had reduced EF on previous echo. --- 04/19/22 HPI: Penny is a 71 year old female with a pmh of afib s/p PVI ablation 05/2021 + Posterior box isolation+ Ablation of posterior wall on 07/2021, atrial flutter s/p CTI ablation with bidirectional block 07/2021, HFrEF d/t dilated cardiomyopathy with recent echo 03/22/22 showing EF 40-45% She is here for HP and consent for AVN ablation s/p [employer] ENGINEER-P 01/21/22 She has been doing well since pacemaker placement Recent device check 03/05/22 shows normal device function with normal thresholds - underlying rhytb afib - RV/LV paced 18% She had a recent admission [facility] for acute decompensated CHF with A-fib RVR and had her daily lasix increased to 40mg BID on dischage. She has been feeling much better since admission and has no complains of chest pain, WEAVER, orthopnea. --- Previous per Dr. Hernadez 10/30/21: HPI: Penny Diane is a 71 y.o. year old pt of Dr Thomas was noted to be in atrial fib and treated with cardizem and xarelto anticoagulation. 05/11/20. On may 11 she noted increased fatigue and exercise intolerance- states just to walk trash can to the road and back was too much, harder to walk up 1 flight of stairs and took a long time to make her bed. Went to ED and was noted to be in A fib and was rate managed with diltiazem. She was brought to [facility] for DCCV and perforemd by Dr Turner on 06/02/20. She converted to SR and subsequently was admitted to [facility] with ADHF and pulm edema. She was diuresed and felt better. Patient was in NSR after the DCCV until the next day. She went back into A fib felt SOB and exhausted with exertion. She feels she is in persistant Afib. She had developed some rash while she was on amiodarone and this was stopped but during the rash persisted despite that. She was started on triamcinolone steroid cream which she uses still which is helped. She is feeling good in sinus rhythm. She has some dementia and so her significant other was next to her during the visit. Patient underwent initial A. fib ablation on 05/17/2021 and a PVI alone was performed. Subsequently she was noted to have recurrence of atrial flutter and was taken to the EP lab on 07/11/2021. She was noted to have a tachycardia that was organized with a cycle length of 180 ms which was organized on the right side and more like atrial fibrillation on the left side. The pulmonary veins were isolated so I proceeded to perform posterior box isolation along with CTI ablation. Despite these measures she had was noted to have A. fib with recurrence as evident on recent event monitor which shows Afib with RVR. I have suggested PPM+AVN ablation at this time. [facility] cardiac rehab staff says her HR is always in the 130's . She had recent sleep study and will be getting a cpap machine in 4-6 weeks. EP study 07/11/2021 LA baseline (mmHg) 1st /8 LA 600ms pacing (mmHg) NA LA 400ms pacing (mmHg) NA AHms 83 HVms 43 VERPms 600/310, VA conduction - AV Wenkebach ms 500 AH jump ms NA AVNERP ms NA AERP ms 600/240 POST PROCEDURE DIAGNOSIS 1. Persistent atrial fibrillation s/p PVI ([facility])+ Posterior box isolation+ Ablation of posterior wall. 2. Atrial flutter s/p CTI ablation with bidirectional block. 3. Mildly elevated LA pressures indicative of HFpEF. 4. EP study revealing no VA conduction. EP study 05/17/2021 POST PROCEDURE DIAGNOSIS 1. Persistent atrial fibrillation s/p PVI ([facility]). 2. Non sustained Atrial flutter. 3. EP study revealing no VA conduction. 4. No inducible arrhythmia with Adenosine. 5. High LA filling pressures with tachycardia suggestive of HFpEF. 6. Normal LA voltage 7. 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 PMH: atrial fib- new onset. HTN PSH: Cholecystectomy- no pertinent cardiac surgery or invasive procedures FMH: Mother- HTN, Lymphoma; Sister- Lung CA Social: Former smoker 1 ppd, x20 years, quit in 1994; Denied illicit drug use, 1 glass wine spritzer/ night PMH: Past Medical History: Diagnosis Date Arrhythmia CHF (congestive heart failure) (CMS/HCC) PSH: Past Surgical History: Procedure Laterality Date ABLATION OF DYSRHYTHMIC FOCUS CARDIOVERSION 07/19/[address] CHEST ANGIOGRAM W AND/OR WO IV CONTRAST (more content not included)... [facility]03-13-2023 NoteAV NODE ABLATION PROCEDURE REPORT DATE OF PROCEDURE: 04/22/2022 PERFORMING PHYSICIAN: Dr. Regino Hernadez CONSENT: Patient NAME OF THE PROCEDURE: AV node ablation LOCATION: EP Lab INDICATIONS FOR PROCEDURE: 1. Atrial fibrillation with RVR. PROCEDURAL SEDATION: Versed and Fentanyl. Moderate sedation was administered by the sedation nurse under my supervision and noted in the CVL log. Intraprocedural face to face sedation time: 8min. Monitoring: Cardiac telemetry, Blood pressure, continuous pulse oxymetry. FLUROSCOPY: 0mGy EBL: 5cc SPECIMEN REMOVED: None PROCEDURE PERFORMED: 1. Comprehensive EP study. 2. Pre and post ablation device testing. 3. AV node ablation. INDICATIONS: 71 year old female with a PMH of Afib s/p PVI ablation 05/2021 + Posterior box isolation+ Ablation of posterior wall on 07/2021, atrial flutter s/p CTI ablation with bidirectional block 07/2021, HFrEF d/t dilated cardiomyopathy with recent echo 03/22/22 showing EF 40-45%. She then underwent HYDROE[employer]ANT STRUCTURAL ENGINEER-P on 01/21/22 with plan towards AVN ablation. Recent device check 03/05/22 shows normal device function with normal thresholds - underlying rhytb afib - RV/LV pacing 18% and check now revealed 25%. PROCEDURAL DETAILS: The patient was brought to the electrophysiology laboratory and continuous electrocardiographic monitoring was instituted. After a procedural pause identifying the patient, the procedure I decided to proceed following administration of antibiotics. Patient was placed in supine position. The right groin was prepped and draped. Using ultrasound guidance, the right femoral vein was identified and noted to be patent and image stored. Venous access was obtained and a short 8F sheath was placed in the right femoral vein. Irrigated 4mm ablation catheter was then advanced to the His location. HV was 43ms. Device thresholds were checked and she was programmed to VVI 40bpm. The irrigated catheter was advanced to His location. His area was tagged. I went on to perform ablation at 30watts. The catheter was flexed and ablation was performed leading to a complete heart block with junctional escape at 41bpm. At this time, I decided to stop the ablation. The device was re-programmed and thresholds were noted to have unchanged. The device was programmed VVIR at 85 beats per minute. Sheaths and catheters were removed and hemostasis was achieved. POST PROCEDURE EXAM: Patient was hemodynamically stable. COMPLICATIONS: None. ESTIMATED BLOOD LOSS: 5cc IMPRESSION: 1. Successful AV Node ablation. 2. Device thresholds pre and post ablation. RECOMMENDATIONS: 1. No heavy lifting for 1 week. 2. Follow up in EP clinic in 1 month. 3. Continue anticoagulation. Regino Hernadez MD Cardiac Electrophysiology.[facility]03-13-2023 Note Patient: Penny Diane Procedure Information Date/Time: 04/22/22 1630 Procedure: AV node ablation Location: [facility] 1 EP / [facility] (Cath) Providers: Regino Hernadez MD Clinical information reviewed: Allergies Meds OB Status Physical Exam Airway Mallampati: II TM distance: >3 FB Neck ROM: full Cardiovascular Dental Pulmonary Abdominal Anesthesia Plan ASA 2 CSE Anesthetic plan and risks discussed with patient. Use of blood products discussed with patient who. Additional [facility] RequestsUnMer[facility]03-13-2023 Note- Moderate tricuspid regurgitation -Monitor with echocardiogramsUniAshtabula [facility]03-13-2023 Note- Moderate MR per recent echo -We will monitor with echocardiograms annuallyUnMercy [facility]03-13-2023 Note- 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 -NYHA 1B -Continue GDMT, Toprol-XL 100 mg, lisinopril 20 mg, Lasix 40 mg twice daily, will start Farxiga after procedure and have patient get BMP 2 weeks later -Was recently discharged from [facility] for acute decompensated heart failureUnMercy [facility]03-13-2023 Note- Hypertension stable -Continue medicationsUnMercy [facility]03-13-2023 Note- [id number] 4 -Continue Xarelto 20 mg, metoprolol XL 100 mg, Cardizem 360 mg -Status post HYDROE[employer] PLANT STRUCTURAL ENGINEER-P pending AVN ablationUnMercy Health [facility] Hospital 04-22-2022 Note-continue compliance with cpapUnMer[facility] 04-19-2022 NotePatient here for pre AV node ablation H&P. She was admitted to [facility] last month for CHF. Lasix was increased to 40mg bid. She had repeat BMP on 04/10/2022. Says her HR has been controlled lately. She denies chest pain, SOB, and bleeding on Xarelto. Says she was 154# when she left the hospital on 03/26, and she is 171# today. C/o LE edema. She said someone mentioned Farxiga to her and that it might be beneficial for her to take it. Review of Systems Cardiovascular: Positive for leg swelling. All other systems reviewed and are negative.[facility] 04-19-2022 NoteUT Electrophysiology Note [facility] Reason for Consultation: Afib ablation HP and consent HPI: Penny is a 71 year old female with a pmh of afib s/p PVI ablation 05/2021 + Posterior box isolation+ Ablation of posterior wall on 07/2021, atrial flutter s/p CTI ablation with bidirectional block 07/2021, HFrEF d/t dilated cardiomyopathy with recent echo 03/22/22 showing EF 40-45% She is here for HP and consent for AVN ablation s/p HY[employer] STRU[employer]URAL ENGINEER-P 01/21/22 She has been doing well since pacemaker placement Recent device check 03/05/22 shows normal device function with normal thresholds - underlying rhytb afib - RV/LV paced 18% She had a recent admission to [facility] for acute decompensated CHF with A-fib RVR and had her daily lasix increased to 40mg BID on dischage. She has been feeling much better since admission and has no complains of chest pain, WEAVER, orthopnea. --- Previous per Dr. Hernadez 10/30/21: HPI: Penny Diane is a 71 y.o. year old pt of Dr Thomas was noted to be in atrial fib and treated with cardizem and xarelto anticoagulation. 05/11/20. On may 11 she noted increased fatigue and exercise intolerance- states just to walk trash can to the road and back was too much, harder to walk up 1 flight of stairs and took a long time to make her bed. Went to ED and was noted to be in A fib and was rate managed with diltiazem. She was brought to [facility] for DCCV and perforemd by Dr Turner on 06/02/20. She converted to SR and subsequently was admitted to [facility] with ADHF and pulm edema. She was diuresed and felt better. Patient was in NSR after the DCCV until the next day. She went back into A fib felt SOB and exhausted with exertion. She feels she is in persistant Afib. She had developed some rash while she was on amiodarone and this was stopped but during the rash persisted despite that. She was started on triamcinolone steroid cream which she uses still which is helped. She is feeling good in sinus rhythm. She has some dementia and so her significant other was next to her during the visit. Patient underwent initial A. fib ablation on 05/17/2021 and a PVI alone was performed. Subsequently she was noted to have recurrence of atrial flutter and was taken to the EP lab on 07/11/2021. She was noted to have a tachycardia that was organized with a cycle length of 180 ms which was organized on the right side and more like atrial fibrillation on the left side. The pulmonary veins were isolated so I proceeded to perform posterior box isolation along with CTI ablation. Despite these measures she had was noted to have A. fib with recurrence as evident on recent event monitor which shows Afib with RVR. I have suggested PPM+AVN ablation at this time. [facility] cardiac rehab staff says her HR is always in the 130's . She had recent sleep study and will be getting a cpap machine in 4-6 weeks. EP study 07/11/2021 LA baseline (mmHg) 1st /8 LA 600ms pacing (mmHg) NA LA 400ms pacing (mmHg) NA AHms 83 HVms 43 VERPms 600/310, VA conduction - AV Wenkebach ms 500 AH jump ms NA AVNERP ms NA AERP ms 600/240 POST PROCEDURE DIAGNOSIS 1. Persistent atrial fibrillation s/p PVI ([facility])+ Posterior box isolation+ Ablation of posterior wall. 2. Atrial flutter s/p CTI ablation with bidirectional block. 3. Mildly elevated LA pressures indicative of HFpEF. 4. EP study revealing no VA conduction. EP study 05/17/2021 POST PROCEDURE DIAGNOSIS 1. Persistent atrial fibrillation s/p PVI ([facility]). 2. Non sustained Atrial flutter. 3. EP study revealing no VA conduction. 4. No inducible arrhythmia with Adenosine. 5. High LA filling pressures with tachycardia suggestive of HFpEF. 6. Normal LA voltage 7. 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 PMH: atrial fib- new onset. HTN PSH: Cholecystectomy- no pertinent cardiac surgery or invasive procedures FMH: Mother- HTN, Lymphoma; Sister- Lung CA Social: Former smoker 1 ppd, x20 years, quit in 1994; Denied illicit drug use, 1 glass wine spritzer/ night PMH: Past Medical History: Diagnosis Date Arrhythmia CHF (congestive heart failure) (CMS/HCC) PSH: Past Surgical History: Procedure Laterality Date ABLATION OF DYSRHYTHMIC FOCUS CARDIOVERSION 07/19/[address] CHEST ANGIOGRAM W AND/OR WO IV CONTRAST 05/14/2021 CT CHEST ANGIOGRAM W AND/OR WO IV CONTRAST STEVE CONVERSION SH: Social Determinants of Health Tobacco Use: Medium Risk Smoking Tobacco Use: Former Smokeless Tobacco Use: Never Passive Exposure: Not on file Alcohol Use: Not on file Financial Resource Strain: Not on file Food Insecurity: Not on file Transportation Needs: Not on file Physical Activity: Not on file Stress: Not on file Social Connections: Not on file Intimate Partner Violence: Not on file Depression: Not on file Housing Stability: Not on file Dc (more content not included)...[facility]03-10-2023 NoteUT Electrophysiology Note [facility] Reason for Consultation: Afib ablation HP and consent HPI: Penny is a 71 year old female with a pmh of afib s/p PVI ablation 05/2021 + Posterior box isolation+ Ablation of posterior wall on 07/2021, atrial flutter s/p CTI ablation with bidirectional block 07/2021, HFrEF d/t dilated cardiomyopathy with recent echo 03/22/22 showing EF 40-45% She is here for HP and consent for AVN ablation s/p HY[employer] STRUCTURAL ENGINEER-P 01/21/22 She has been doing well since pacemaker placement Recent device check 03/05/22 shows normal device function with normal thresholds - underlying rhytb afib - RV/LV paced 18% She had a recent admission to [facility] for acute decompensated CHF with A-fib RVR and had her daily lasix increased to 40mg BID on dischage. She has been feeling much better since admission and has no complains of chest pain, WEAVER, orthopnea. --- Previous per Dr. Hernadez 10/30/21: HPI: Penny Diane is a 71 y.o. year old pt of Dr Thomas was noted to be in atrial fib and treated with cardizem and xarelto anticoagulation. 05/11/20. On may 11 she noted increased fatigue and exercise intolerance- states just to walk trash can to the road and back was too much, harder to walk up 1 flight of stairs and took a long time to make her bed. Went to ED and was noted to be in A fib and was rate managed with diltiazem. She was brought to [facility] for DCCV and perforemd by Dr Turner on 06/02/20. She converted to SR and subsequently was admitted to [facility] with ADHF and pulm edema. She was diuresed and felt better. Patient was in NSR after the DCCV until the next day. She went back into A fib felt SOB and exhausted with exertion. She feels she is in persistant Afib. She had developed some rash while she was on amiodarone and this was stopped but during the rash persisted despite that. She was started on triamcinolone steroid cream which she uses still which is helped. She is feeling good in sinus rhythm. She has some dementia and so her significant other was next to her during the visit. Patient underwent initial A. fib ablation on 05/17/2021 and a PVI alone was performed. Subsequently she was noted to have recurrence of atrial flutter and was taken to the EP lab on 07/11/2021. She was noted to have a tachycardia that was organized with a cycle length of 180 ms which was organized on the right side and more like atrial fibrillation on the left side. The pulmonary veins were isolated so I proceeded to perform posterior box isolation along with CTI ablation. Despite these measures she had was noted to have A. fib with recurrence as evident on recent event monitor which shows Afib with RVR. I have suggested PPM+AVN ablation at this time. [facility] cardiac rehab staff says her HR is always in the 130's . She had recent sleep study and will be getting a cpap machine in 4-6 weeks. EP study 07/11/2021 LA baseline (mmHg) 1st 8 LA 600ms pacing (mmHg) NA LA 400ms pacing (mmHg) NA AHms 83 HVms 43 VERPms 600/310, VA conduction - AV Wenkebach ms 500 AH jump ms NA AVNERP ms NA AERP ms 600/240 POST PROCEDURE DIAGNOSIS 1. Persistent atrial fibrillation s/p PVI ([facility])+ Posterior box isolation+ Ablation of posterior wall. 2. Atrial flutter s/p CTI ablation with bidirectional block. 3. Mildly elevated LA pressures indicative of HFpEF. 4. EP study revealing no VA conduction. EP study 05/17/2021 POST PROCEDURE DIAGNOSIS 1. Persistent atrial fibrillation s/p PVI ([facility]). 2. Non sustained Atrial flutter. 3. EP study revealing no VA conduction. 4. No inducible arrhythmia with Adenosine. 5. High LA filling pressures with tachycardia suggestive of HFpEF. 6. Normal LA voltage 7. 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 PMH: atrial fib- new onset. HTN PSH: Cholecystectomy- no pertinent cardiac surgery or invasive procedures FMH: Mother- HTN, Lymphoma; Sister- Lung CA Social: Former smoker 1 ppd, x20 years, quit in 1994; Denied illicit drug use, 1 glass wine spritzer/ night PMH: Past Medical History: Diagnosis Date Arrhythmia CHF (congestive heart failure) (CMS/HCC) PSH: Past Surgical History: Procedure Laterality Date ABLATION OF DYSRHYTHMIC FOCUS CARDIOVERSION 07/19/[address] CHEST ANGIOGRAM W AND/OR WO IV CONTRAST 05/14/2021 CT CHEST ANGIOGRAM W AND/OR WO IV CONTRAST STEVE CONVERSION SH: Social Determinants of Health Tobacco Use: Medium Risk Smoking Tobacco Use: Former Smokeless Tobacco Use: Never Passive Exposure: Not on file Alcohol Use: Not on file Financial Resource Strain: Not on file Food Insecurity: Not on file Transportation Needs: Not on file Physical Activity: Not on file Stress: Not on file Social Connections: Not on file Intimate Partner Violence: Not on file Depression: Not on file Housing Stability: Not on file Me (more content not included)...[facility]03-09-2023 Evaluation note* Encounter Date Diagnosis Assessment Notes Treatment Notes Treatment Clinical Notes Apr, Prediabetes (ICD-10 - R73.03) Apr, Obesity (BMI 30.0-34 .9) (ICD-10 - E66.9) Apr, Binge eating (ICD-10 - R63.2) Apr, Hypercholesterolemia (ICD-10 - E78.00) Apr, Fatty liver (ICD-10 - K76.0) Apr, High blood pressure (ICD-10 - I10) Apr, Depression, unspecif ied depression type (ICD-10 - F32.9) Apr, Snores (ICD-10 - R06.83) Apr, Atrial fibrillation (ICD-10 - I48.91) Apr, CKD (chronic kidney disease) (ICD-10 - N18.9) Apr, Metabolic syndrome X (ICD-10 - E88.81) [facility] Other 03-02-2023 Evaluation note* Encounter Date Diagnosis Assessment Notes Treatment Notes Treatment Clinical Notes Apr, Obesity, unspecified classification, unspecified obesity type, unspecified whether serious comorbidity present (ICD-10 - E66.9) Apr, BMI 32.0-32.9,adult (ICD-10 - Z68.32) Apr, Other Summary of Visi t: (A) encouraged meal timing to better control appetite (B) discussed low sodium diet tips for heart health Patient set the following goals: NOT REVIEWED TODAY [facility] Other 12-01-2022 Evaluation note* Encounter Date Diagnosis Assessment Notes Treatment Notes Treatment Clinical Notes Jan, Obesity, unspecified classification, unspecified obesity type, unspecified whether serious comorbidity present (ICD-10 - E66.9) Jan, BMI 32.0-32.9,adult (ICD-10 - Z68.32) Jan, Other Summary of Visi t: (A) encouraged finding moderation and balance in food choices by incorporating appropriate portions of favorite foods in addition to fruits and veggies. Work towards avoiding binges or all -or -nothing thinking (B) discussed benefits of exercise and worked on setting small goals Patient set the following goals: NOT REVIEWED TODAY - increase protein to about 15 g /meal ; -walk after dinner; pt will try talking to sister on phone or an audio book [facility] Other 10-25-2022 Evaluation note* Encounter Date Diagnosis Assessment Notes Treatment Notes Treatment Clinical Notes Nov, Prediabetes (ICD-10 - R73.03) Nov, Obesity (BMI 30.0-34 .9) (ICD-10 - E66.9) Nov, Binge eating (ICD-10 - R63.2) Nov, Hypercholesterolemia (ICD-10 - E78.00) Nov, Fatty liver (ICD-10 - K76.0) Nov, High blood pressure (ICD-10 - I10) Nov, Depression, unspecif ied depression type (ICD-10 - F32.9) Nov, Snores (ICD-10 - R06.83) Nov, Atrial fibrillation (ICD-10 - I48.91) Nov, CKD (chronic kidney disease) (ICD-10 - N18.9) Nov, Metabolic syndrome X (ICD-10 - E88.81) [facility] Other 09-29-2022 Evaluation note* Encounter Date Diagnosis Assessment Notes Treatment Notes Treatment Clinical Notes Oct, Prediabetes (ICD-10 - R73.03) Oct, Obesity (BMI 30.0-34 .9) (ICD-10 - E66.9) Oct, Binge eating (ICD-10 - R63.2) Oct, Hypercholesterolemia (ICD-10 - E78.00) Oct, Fatty liver (ICD-10 - K76.0) Oct, High blood pressure (ICD-10 - I10) Oct, Depression, unspecif ied depression type (ICD-10 - F32.9) Oct, Snores (ICD-10 - R06.83) Oct, Atrial fibrillation (ICD-10 - I48.91) Oct, CKD (chronic kidney disease) (ICD-10 - N18.9) Oct, Metabolic syndrome X (ICD-10 - E88.81) [facility] Other 08-18-2022 Evaluation note* Encounter Date Diagnosis Assessment Notes Treatment Notes Treatment Clinical Notes Sep, Prediabetes (ICD-10 - R73.03) Sep, Obesity (BMI 30.0-34 .9) (ICD-10 - E66.9) Sep, Binge eating (ICD-10 - R63.2) Sep, Hypercholesterolemia (ICD-10 - E78.00) Sep, Fatty liver (ICD-10 - K76.0) Sep, High blood pressure (ICD-10 - I10) Sep, Depression, unspecif ied depression type (ICD-10 - F32.9) Sep, Snores (ICD-10 - R06.83) Sep, Atrial fibrillation (ICD-10 - I48.91) Sep, CKD (chronic kidney disease) (ICD-10 - N18.9) Sep, Metabolic syndrome X (ICD-10 - E88.81) [facility] Other 07-07-2022 Evaluation note* Encounter Date Diagnosis Assessment Notes Treatment Notes Treatment Clinical Notes Aug, Obesity, unspecified classification, unspecified obesity type, unspecified whether serious comorbidity present (ICD-10 - E66.9) Aug, BMI 32.0-32.9,adult (ICD-10 - Z68.32) Aug, Other Summary of Visi t: (A) encouraged finding moderation and balance in food choices by incorporating appropriate portions of favorite foods in addition to fruits and veggies. Work towards avoiding binges or all -or -nothing thinking (B) discussed benefits of exercise and worked on setting small goals Patient set the following goals: - increase protein to about 15 g /meal ; NOT REVIEWED -NEW: walk after dinner; pt will try talking to sister on phone or an audio book [facility] Other 05-17-2022 Evaluation note* Encounter Date Diagnosis Assessment Notes Treatment Notes Treatment Clinical Notes June, Obesity, unspecified classification, unspecified obesity type, unspecified whether serious comorbidity present (ICD-10 - E66.9) June, BMI 32.0-32.9,adult (ICD-10 - Z68.32) June, Other Summary of Visi t: (A) discussed 90/10 rule of sustainability in lifestyle changes. Discussed impact of a small ice cream compared to cycling in the craving throughts (B) reviewed protein goals and protein sources Patient set the following goals: - increase exercise by meeting luiz/ Zak ; NOT MET; message to Zak to reschedule - choose healthier snacks - MET ; - NEW: increase protein to about 15 g /meal [facility] Other 04-05-2022 Evaluation note* Encounter Date Diagnosis Assessment Notes Treatment Notes Treatment Clinical Notes May, Prediabetes (ICD-10 - R73.03) May, Obesity (BMI 30.0-34 .9) (ICD-10 - E66.9) May, Hypercholesterolemia (ICD-10 - E78.00) May, Fatty liver (ICD-10 - K76.0) May, High blood pressure (ICD-10 - I10) May, Binge eating (ICD-10 - R63.2) May, Depression, unspecif ied depression type (ICD-10 - F32.9) May, Snores (ICD-10 - R06.83) May, Atrial fibrillation (ICD-10 - I48.91) May, CKD (chronic kidney disease) (ICD-10 - N18.9) May, Metabolic syndrome X (ICD-10 - E88.81) [facility] Other 03-10-2022 Evaluation note* Encounter Date Diagnosis Assessment Notes Treatment Notes Treatment Clinical Notes Apr, Obesity, unspecified classification, unspecified obesity type, unspecified whether serious comorbidity present (ICD-10 - E66.9) Apr, BMI 32.0-32.9,adult (ICD-10 - Z68.32) Apr, Other Summary of Visit: (A) plate method of meal planning (B) reviewed goals (C) discussed low sodium food options to consider for meals and snacks Patient set the following goals: - NEW: increase exercise by meeting w/ zak - NEW: choose healthier snacks [facility] Other 02-28-2022 Evaluation note* Encounter Date Diagnosis Assessment Notes Treatment Notes Treatment Clinical Notes Mar, High blood pressure (ICD-10 - I10) Mar, BMI 33.0-33.9,adult (ICD-10 - Z68.33) Mar, Depression, unspecified depression type (ICD-10 - F32.9) Mar, Binge eating (ICD-10 - R63.2) Mar, Fatty liver (ICD-10 - K76.0) Mar, Snores (ICD-10 - R06.83) Mar, Atrial fibrillation (ICD-10 - I48.91) Mar, CKD (chronic kidney disease) (ICD-10 - N18.9) Mar, Metabolic syndrome X (ICD-10 - E88.81) [facility] Other Evaluation noteNo [facility] Other Evaluation noteNo assessment information available [facility] Work Phone: [facility] Narrative - Reported* Type Description Date Medical History depression Medical History anxiety Medical History high blood pressure Medical History Atrial fibrillation Medical History snoring Surgical History gall bladder [facility] Other [facility] general Narrative - Reported* Type Description Date Medical History depression Medical History anxiety Medical History high blood pressure Medical History Atrial fibrillation Medical History snoring Medical History sleep apnea Surgical History InfoAssure bladder [facility] Other [facility] general Narrative - Reported* Type Description Date Medical History depression Medical History anxiety Medical History high blood pressure Medical History Atrial fibrillation Medical History snoring Medical History sleep apnea Medical History CHF Medical History Pacemaker 01-21-2022 Surgical History gall bladder Surgical History Pacemaker Hospitalization History See above [facility] Other [facility] general Narrative - Reported* Type Description Date Medical History depression Medical History anxiety Medical History high blood pressure Medical History Atrial fibrillation Medical History snoring Medical History sleep apnea Medical History CHF Medical History Pacemaker 01-21-2022 Medical History Heart ablation Surgical History gall bladder Surgical History Pacemaker Surgical History Heart Ablation [facility] Hospitalization History See above [facility] Other Summary Purpose Family History No Family History Records FoundNo Family History Records FoundNo Family History Records FoundNo Family History Records FoundNo Family History Records FoundNo Family History Records Found Advance Directives No Advanced Directives Records Found Advance Directive Response Recorded Date/ Time Advance Directives No March 9:17am Chief Complaint and Reason for Visit Chief Complaint Wmn Obesity Interested in [place]/[facility] Additional Source Comments INFORMATION SOURCE (unrecogn ized section and content) DATE CREATED AUTHOR 06/10/2018 [facility] DATE CREATED AUTHOR AUTHOR'S ORGANIZ ATION 09/12/2021 [facility] DATE CREATED AUTHOR AUTHOR'S ORGANIZ ATION 06/23/2022 [facility] DATE CREATED AUTHOR AUTHOR'S ORGANIZ ATION 03/25/2023 [facility] DATE CREATED AUTHOR AUTHOR'S ORGANIZ ATION 03/26/2023 [facility] DATE CREATED AUTHOR AUTHOR'S ORGANIZ ATION 04/12/2023 [facility] EPIC REASON FOR VISIT (unrecogniz ed section and content) WMN Dr restarting programWMN Dr follow upWMN Initial RDr/s RD appt WMPrior AuthFCCC ApptsDC OzempicWM RD follow upDC Interested in exercise programWM Exercise programNo InformationWM RD follow up - [address] F/U[address] F/U4 weeksWM [address] follow upCKD (previously WMWMN F/UFCCC Med review, LM month Follow upWMN F/UDC RefillWMN f/upckd- 6 mo follow upNo InformationNo Information Care Teams (unrecognized sec tion and content) Team Status: Active Member Role Status Dates NON STAFF Primary Care Provider Active Team Status: Inactive Member Role Status Dates Joaquín Maria MD Attending Provider Active Start: January 09, 2023 End: January 09, 2023 Team Status: Active Member Role Status Dates Ty Thomas DO Primary Care Provider Active Start: January 09, 2023 Joaquín Maria MD Attending Provider Active Start: January 09, 2023 Team Status: Inactive Member Role Status Dates Med Briggs MD Attending Provider Active S tart: March 04, 2023 End: March 04, 2023 NON STAFF Primary Care Provider Active Start: March 04, 2023 End: March 04, 2023 Goals (unrecognized section and content) Goals may be documented in a n alternate section FOR RECORDS PERTAINING TO PATIENTS WHO ARE OR HAVE BEEN ENROLLED IN A CHEMICAL DEPENDENCY/SUBSTANCEABUSE PROGRAM, SOME INFORMATION MAY BE OMITTED. This clinical summary was aggregated from multiple sources. Caution should be exercised in using it in the provision of clinical care. This summary normalizes information from multiple sources, and as a consequence, information in this document may materially change the coding, format and clinical context of patient data. In addition, data may be omitted in some cases. CLINICAL DECISIONS SHOULD BE BASED ON THE PRIMARY CLINICAL RECORDS. [facility] [employer] [facility]. provides no warranty or guarantee of the accuracy or completeness of information in this document.
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
--- NOTE | 2023-04-13 10:33 | CT_ITS ---
The [address] [address] Patient Name: LEO DIANE MRN: [id number] date: 1950 Sex: F Assigned Patient Location: ER Current Patient Location: ER Accession/Order Number: [id number] Exam Date: 04/13/2023 10:41 Report Date: 04/13/2023 11:13 At the request of: LEWIS BENITEZ Procedure: CT head/brain wo con EXAMINATION: CT head/brain wo con HISTORY: Trauma right calvarium COMPARISON: None. TECHNIQUE: CT scan of the head was performed without IV contrast. CT dose reduction technique was used, including Automated Exposure Control. FINDINGS: There are no extra-axial fluid collections. There is no mass effect or midline shift. The cerebral ventricles and sulci are normal. The brain demonstrates normal attenuation. Basal cisterns are patent. There is bilateral subcortical and deep periventricular white matter chronic microvascular ischemia. Bilateral orbits, paranasal sinuses and mastoid air cells are patent. No skull base fracture. Right parietal scalp edema and hematoma CT/CT head/brain wo con IMPRESSION: No acute traumatic intracranial process. Right parietal scalp edema and hematoma. Electronically authenticated by: DIANNE TURK Date: 04/13/2023 11:13
--- NOTE | 2023-04-13 10:58 | XR_ITS ---
The [address] [address] Patient Name: LEO DIANE MRN: [id number] date: 1950 Sex: F Assigned Patient Location: ER Current Patient Location: ED.MAIN Accession/Order Number: [id number] Exam Date: 04/13/2023 11:10 Report Date: 04/13/2023 11:59 At the request of: LEWIS BENITEZ Procedure: XR forearm RT 2V PROCEDURE: XR forearm RT 2V DATE: 04/13/2023 10:10 AM HAND I THERMAL CUTTER COMPARISONS: None CLINICAL INDICATION: Injury/fall FINDINGS: There is no evidence of fractures or other osseous abnormalities. XR/XR forearm RT 2V IMPRESSION: Right forearm radiographs show no evidence of abnormalities. Electronically authenticated by: CARMELA OROZCO Date: 04/13/2023 11:59
--- NOTE | 2023-04-13 11:08 | XR_ITS ---
The [address] [address] Patient Name: LEO DIANE MRN: [id number] date: 1950 Sex: F Assigned Patient Location: ER Current Patient Location: ER Accession/Order Number: [id number] Exam Date: 04/13/2023 11:10 Report Date: 04/13/2023 12:01 At the request of: LEWIS BENITEZ Procedure: XR hand RT min 3V PROCEDURE: XR hand RT min 3V DATE: 04/13/2023 10:10 AM MANAGER NET COMPARISONS: None CLINICAL INDICATION: injury FINDINGS: There is no evidence of fractures or other acute osseous abnormalities. There is mild scattered interphalangeal degenerative changes most prominently involving the distal second interphalangeal joint space. XR/XR hand RT min 3V IMPRESSION: Right hand radiographs show no evidence of acute abnormalities. Electronically authenticated by: CARMELA OROZCO Date: 04/13/2023 12:01
== END 2023-04-13 12:07 | disposition home or self-care (01) ==
PROVIDERS: Emergency Provider Emergency Medicine Emergency Medical Services
DX: S09.8XXA Other specified injuries of head, initial encounter (principal); S50.11XA Contusion of right forearm, initial encounter; V18.0XXA Pedal cycle driver injured in noncollision transport accident in nontraffic accident, initial encounter; Z79.899 Other long term (current) drug therapy
CPT/HCPCS: 70450; 73090; 73130; 99284

== ENCOUNTER 2023-08-01 14:34 | Emergency (ER) | payer MEDICARE, OTHER, SELFPAY ==
[2023-08-01 14:45] VITALS: BP 196/119; PULSE 70; TEMP 36.7; O2SAT 98; BMI 28.5
--- NOTE | 2023-08-01 15:00 | ED.GENADUL1 ---
HPI HPI - General Adult General Chief complaint: Anxiety Stated complaint: medication refill Time Seen by Provider: 08/01/23 14:55 Source: patient Mode of arrival: walk-in Limitations: no limitations History of Present Illness HPI narrative: The patient is a 72-year-old female presents to the from cardiac rehab for concerns of medication refill. Patient states her doctor recently moved to another city, she has her medications from Dr. 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 Patient states she initially did not think she needed the medication but has found herself very tearful with labile feelings. She denies any suicidal or homicidal ideation. She denies any chest pain or shortness of breath. She reports stable vital signs and cardiac rehab but was crying on arrival to the ER. Patient requesting medication refill as she is waiting to get into a new pcp Related Data Home Medications ?Medication ?Instructions ?Recorded ?Confirmed dapagliflozin propanediol 10 mg mg 04/13/23 tablet (Farxiga) diltiazem HCl 360 mg mg PO 04/13/23 capsule,extended release 24 hr furosemide 20 mg tablet mg 04/13/23 lisinopril 20 mg tablet mg 04/13/23 magnesium oxide 400 mg (241.3 mg mg 04/13/23 magnesium) tablet (MagOx) metoprolol succinate 100 mg mg PO 04/13/23 tablet,extended release 24 hr potassium chloride 20 mEq meq PO 04/13/23 tablet,extended release(part/cryst) rivaroxaban 20 mg tablet (Xarelto) mg 04/13/23 venlafaxine 150 mg mg PO 04/13/23 capsule,extended release 24 hr Previous Rx's ?Medication ?Instructions ?Recorded venlafaxine 150 mg 150 mg PO QAM #30 caps 08/01/23 capsule,extended release 24 hr (Effexor XR) Allergies Allergy/AdvReac Type Severity Reaction Status Date / Time Penicillins Allergy Severe Hives Verified 08/01/23 14:42 Opioid HPI Opioid Management Most Recent Opioid Data: No Data to Display Review of Systems ROS Constitutional Denies: fever or chills Eyes Denies: change in vision Ears, nose, mouth, and throat Denies: throat pain Cardiovascular Denies: chest pain or palpitations Respiratory Denies: shortness of breath or cough Gastrointestinal Denies: abdominal pain Genitourinary Denies: painful urination Musculoskeletal Denies: back pain or neck pain Neurological Denies: headache or behavioral changes Psychiatric Reports: anxiety, panic attacks and difficulty concentrating; Denies: irritability, visual hallucinations, suicidal ideation or homicidal ideation Hematologic/Lymphatic Denies: easy bruising Exam Narrative Exam Narrative: Nurses notes and vital signs reviewed and patient is not hypoxic. General: The patient appears well and in no apparent distress.Patient tearful on arrival but redirectable. Patient is resting comfortably on cart. Skin: Warm, dry, no pallor noted. no rash Head: Normocephalic, atraumatic Neck: Supple, trachea mid-line, no tenderness, no lymphadenopathy Eye: Pupils are equal, round and reactive to light, EOMI Ears, Nose, Mouth, and Throat: external exam unremarkable Cardiovascular: Regular Rate and Rhythm Respiratory: Patient is in no distress, no accessory muscle use, lungs are clear to auscultation, no wheezing, rales or rhonchi. Chest Wall: no tenderness Back: non-tender, no CVA tenderness Musculoskeletal: normal ROM, no tenderness, no swelling GI: Normal bowel sounds, no tenderness to palpation, no masses appreciated. No rebound, guarding, or rigidity noted. Neurological: A&O x4 Psychiatric: Cooperative, Anxious, redirectable to verbal conversation. Constitutional Vital Signs, click to edit/add: Last Vital Signs Temp 98.1 F 08/01/23 14:45 Pulse 70 08/01/23 14:45 Resp 16 08/01/23 14:45 BP 196/119 H 08/01/23 14:45 Pulse Ox 98 08/01/23 14:45 O2 Del Method Room Air 08/01/23 14:45 Course Vital Signs Vital signs: Vital Signs Temperature 98.1 F 08/01/23 14:45 Pulse Rate 70 08/01/23 14:45 Respiratory Rate 16 08/01/23 14:45 Blood Pressure 196/119 H 08/01/23 14:45 Pulse Oximetry 98 08/01/23 14:45 Oxygen Delivery Method Room Air 08/01/23 14:45 Temperature 98.1 F 08/01/23 14:45 Pulse Rate 70 08/01/23 14:45 Respiratory Rate 16 08/01/23 14:45 Blood Pressure 196/119 H 08/01/23 14:45 Pulse Oximetry 98 08/01/23 14:45 Oxygen Delivery Method Room Air 08/01/23 14:45 Medical Decision Making MDM Narrative Medical decision making narrative: Repeat blood pressure manually after patient was calm and at bedside, seated 170/96. Discussed patient's medications, confirmed dosage. Patient would like to start medication this evening, and first dose given here. Refill sent to her pharmacy. She has a verbalized plan to follow-up with new PCP to discuss ongoing medication refills. Patient very appreciative has no further concerns. The patient is to followup with primary care physician in next 2-3 days or to return to the emergency department should any of the signs or symptoms worsen or new symptoms develop. Patient had questions answered. The patient agrees with the following Diagnosis and Treatment plan and the patient will be discharged home. Discharge Plan Discharge Stand Alone Forms: Portal Instructions Chief Complaint: Anxiety Clinical Impression: Medication refill Patient Disposition: Home, Self-Care Time of Disposition Decision: 15:01 Condition: Good Prescriptions / Home Meds: New venlafaxine [Effexor XR] 150 mg capsule,extended release 24hr 150 mg PO QAM Qty: 30 0RF No Action lisinopril 20 mg tablet metoprolol succinate 100 mg tablet extended release 24 hr PO venlafaxine 150 mg capsule,extended release 24hr PO diltiazem HCl 360 mg capsule,extended release 24hr PO potassium chloride 20 mEq tablet,ER particles/crystals PO magnesium oxide [MagOx] 400 mg (241.3 mg magnesium) tablet furosemide 20 mg tablet Xarelto 20 mg tablet dapagliflozin propanediol [Farxiga] 10 mg tablet Print Language: [place] Instructions: Medicine Refill (ED) Additional Instructions: please get appt with NEw pcp for further refills, Referrals: Physician,Non-Staff, [Primary Care Provider] - 1 week MAN BARKLEY [Nurse Practitioner] - 1 week
[2023-08-01] MEDS: VENLAFAXINE HCL ER 150 MG CAPSULE PO (15:13)
== END 2023-08-01 15:15 | disposition home or self-care (01) ==
PROVIDERS: Emergency Provider Emergency Medicine
DX: Z76.0 Encounter for issue of repeat prescription (principal)
CPT/HCPCS: 99283

== ENCOUNTER 2023-09-01 14:52 | Outpatient (OUT) | payer MEDICARE, OTHER, SELFPAY ==
--- NOTE | 2023-09-01 14:57 | CA_ITS ---
Patient Name: LEO DIANE MR#: [id number] : 1950 Exam Date: 09/01/2023 Ordering Doctor: JIMI THOMPSON ECHOCARDIOGRAM REPORT PROCEDURE: CA ECHO DOPPLER COMPLETE INDICATIONS: Mitral valve regurgitation COMPARISON: None. DESCRIPTION: COMPLETE ECHOCARDIOGRAM Real-time transthoracic echocardiography with 2D, M-mode, spectral and color flow Doppler performed. QUALITY: Technical quality was good. LEFT VENTRICLE: Normal chamber size. Concentric hypertrophy. Global left ventricular systolic function is normal. LV EF: Estimated left ventricular ejection fraction is 60-65% DIASTOLIC: ATRIAL SEPTUM: LEFT ATRIUM: Severe dilatation. RIGHT ATRIUM: Moderate dilatation. RIGHT VENTRICLE: Normal chamber size. Normal right ventricular systolic function. Pacer wire present. TRICUSPID VALVE: Normal mobility and thickness. No stenosis with mild regurgitation. No evidence of pulmonary hypertension. RVSP 28 mmHg MITRAL VALVE: Mildly thickened with normal mobility. No evidence of mitral valve stenosis. There is no mitral annular calcification. Moderate mitral regurgitation. AORTIC VALVE: Normal trileaflet appearance. Mildly calcified aortic valve. Normal leaflet mobility. No evidence of aortic valve stenosis. No aortic regurgitation. AORTIC ROOT: Normal diameter and appearance. PULMONIC VALVE: Normal thickness and mobility. No stenosis. Mild regurgitation. PERICARDIUM: No evidence of pericardial effusion. IVC: Collapses with inspirations. Normal size. PLEURA: CONCLUSION: 1. Concentric left ventricular hypertrophy with normal systolic function. LVEF is 60-65%. 2. Normal right ventricular size and systolic function. 3. Moderate to severe biatrial dilatation. 4. Moderate mitral regurgitation. 5. Mild tricuspid regurgitation. 6. Normal right sided pressures. Adult Echocardiography Procedure Report Left Ventricle LVEDD (3.7 - 5.6 cm): 4.28 cm LVESD (2.2 - 4.0 cm): 2.80 cm LVIVS thickness (0.6 - 1.2 cm): 1.60 cm LVPW thickness (0.5 - 1.0 cm): 1.01 cm e': 0.10 m/s E - e': 9.01 LVOT Max Gradient: 1.89 mm[Hg] LVOT Area (cm2): 0.69 m/s Peak Velocity (LVOT): 0.69 m/s Mean Velocity (LVOT): 0.49 m/s LVOT Diameter 2.16 cm Left Ventricular Ejection Fraction: 60-65 % Left Atrium LA Volume Index (2D A2C): 65.73 ml/m2 Left Atrium Systolic Dimension: 5.05 cm Mitral Valve MV E to A Ratio: 2.78 Mitral Valve A-Wave Peak Velocity: 0.32 m/s Mitral Valve E-Wave Peak Velocity: 0.90 m/s Right Ventricle RV Internal Diastolic Dimension: 3.34 cm Aorta AO Root Diam: 3.12 cm Ascending Ao Diam: 2.79 cm Aortic Valve AoV Area (Peak Yosef): 2.31 cm2, 2.31 cm2 AoV Area (VTI): 2.13 cm2, 2.13 cm2 Peak Velocity(Antegrade Flow): 1.09 m/s Peak Gradient(Antegrade Flow): 4.78 mm[Hg] Mean Velocity(Antegrade Flow): 0.81 m/s Mean Gradient(Antegrade Flow): 2.93 mm[Hg] Velocity Time Integral: 25.50 cm Tricuspid Valve Peak Velocity (Regurgitant Flow): 2.05 m/s, 1.69 m/s, 2.48 m/s, 2.43 m/s Pulmonic Valve Mean Gradient: 1.15 mm[Hg] Mean Velocity: 0.49 m/s Peak Velocity: 0.76 m/s, 0.71 m/s Peak Gradient: 2.04 mm[Hg], 2.34 mm[Hg] Right Atrium Right Atrium Systolic Pressure: 41.64 ml, 41.64 ml Dictated by: Charly Lofton M.D. on 09/01/2023 at 16:12 Approved by: Charly Lofton M.D. on 09/01/2023 at 16:17
--- OUTSIDE RECORDS SUMMARY | 2023-09-01 15:06 | XMS_ITS | CCD ---
Author Organization [facility] Care Team Providers Care American Sign Language Teacher Name Role Phone HOUSE, SR TY P Referring Unavailable HOUSE, SR TY P Primary Care Unavailable HOUSE, SR TY P Referring Unavailable HOUSE, SR TY P Primary Care Unavailable Joaquín Maria Unavailable Viviana [...] Primary Care Unavailable JACI MARSH Consulting Unavailable NOA MARSHA Admitting Unavailable JACI MARSH Attending Unavailable HOUSE, DR CARDONA Primary Care Unavailable JCAI MARSH Consulting Unavailable HOUSE, DR CARDONA Primary Care Unavailable WHITT ., DR BRITTNY Chavez Admitting Unavailable WHITT ., DR BRITTNY Chavez Attending Unavailable WHITT ., DR BRITTNY Chavez Consulting Unavailable SHAIKH Naty LOJA Consulting Unavailable MED TUTTLE Consulting Unavailable ANNITA BRAN Consulting Unavailable DIAB ., BISI Consulting Unavailable REGINO HERNADEZ Admitting Unavailable REGINO HERNADEZ Attending Unavailable DR TY THOMAS Primary Care Unavailable REGINO HERNADEZ Consulting Unavailable HALIE NICK Consulting Unavailable DO Ty Thomas Primary Care Provider MD Joaquín Maria Attending Provider MD Med Briggs Attending Provider NON STAFF Primary Care Provider UnavailMed Cunningham Unavailable Unavailable Primary Care Provider UnavailELIAS Gee Attending Unavailable MED BRIGGS Referring Unavailable JIMI THOMPSON Attending Unavailable JIMI THOMPSON Attending Unavailable REGINO HERNADEZ Referring Unavailable REGINO HERNADEZ Referring Unavailable JIMI THOMPSON Attending Unavailable Joaquín Maria Admitting Unavailable Ty Thomas Primary Care Unavailable Joaquín Maria Attending Unavailable NON STAFF Primary Care Unavailable Med Briggs Attending Unavailable Med Briggs Admitting Unavailable Allergies Allergy Classification Reported Allergen(s) Allergy Type Date of Onset Reaction(s) Facility (20 sources) Amiodarone Drug Allergy 4 [facility] (20 sources) penicillAMINE Drug Allergy 4 Unknown, [facility] (3 sources) Penicillins; Translations: [PENICILLINS] Drug allergy (disorder) [address] [facility] Repository (1 source) Leucine Drug Allergy 7 [facility] Repository (1 source) Amiodarone Drug Allergy [address] [place] [address] Repository (1 source) penicillAMINE Drug Allergy [address] [place] [address] Repository Medications Current Medications Medication Drug Class(es) Dates Sig (Normalized) Sig (Original) cholecalciferol 0.25 mg oral capsule (9 sources) Vitamin D Vitamin D3 250 M CG (68192 UT) as directed Orally Active clobetasol propionate 0.0005 mg/mg topical ointment (1 source) Corticosteroid Start: 08-28-2023 Clobetasol Active 1 APPLIC TOPICAL Daily August 28, 2023 12:00am dapagliflozin 10 mg oral tablet (9 sources) Sodium-Glucose Cotransporter 2 Inhibitor Start: 08-12-2023 take 1 tablet by mouth once daily Dapagliflozin Propanediol (Farxiga) 10 mg tablet Active 10 MG PO Daily August 12, 2023 12:00am take 1 tablet by alex th every twenty-four hours Farxiga 10 MG 1 tablet Orally Once a day Dapagliflozin Active 24 hr dilTIAZem hydrochloride 360 mg extended release oral capsule (19 sources) Calcium Channel Tomas take 1 capsule by mouth every twenty-four hours dilTIAZem HCl ER Coated Beads 360 MG 1 capsule Orally Once a day Active 2 ml dupilumab 150 mg/ml auto-injector (5 sources) Interleukin-4 Receptor alpha Antagonist Start: 08-12-19 End: 08-28-19 24 inject 300 mg by subcutaneous injection every other week Dupilumab (Dupixent Pen) 300 mg/2 mL pen injector Active 300 MG SUBCUT EVERY 2 WEEKS August 28, 2023 10:43am Dupixent 300 MG/ 2ML Subcutaneous for 28 Days Active Echinacea 400 MG (16 sources) Echinacea 400 MG as directed Orally Active furosemide 40 mg oral tablet (20 sources) Loop Diuretic Start: 08-12-2023 take 40 mg by mouth twice daily Furosemide Active 40 MG PO Twice daily August 12, 2023 12:00am take 1 tablet by alex th every twelve hours Furosemide 40 MG 1 tablet Orally BID Act joseph take 1 tablet by alex th every twenty-four hours Furosemide 20 MG 1 tablet Orally qd Acti ve Iron (16 sources) take 1 tablet by mouth once john y at mealtime take 1 tablet by alex th once daily at mealtime Iron 240 (27 Fe) MG 1 tablet with water or juice between meals Orally Once a day Active lisinopril 20 mg oral tablet (20 sources) Angiotensin Converting Enzyme Inhibitor Start: 08-12-2023 take 20 mg by mouth twice daily Lisinopril Active 20 MG PO Twice daily August 12, 2023 12:00am take 1 tablet by alex th every twelve hours Lisinopril 20 MG 1 tablet Orally BID Act joseph take 1 tablet by alex th every twenty-four hours Lisinopril 20 MG 1 tablet Orally Once a day Active magnesium oxide 400 mg oral tablet (12 sources) Start: 08-12-2023 take 400 mg by mouth once daily Magnesium Oxide Active 400 MG PO Daily August 12, 2023 12:00am take 1 tablet by alex th every twenty-four hours Magnesium Oxide 400 MG 1 tablet Orally Once a day Active take 1 tablet by mouth every twe lve hours Magnesium Oxide 400 MG 1 tablet Orally BID Active 24 hr metoprolol succinate 100 mg extended release oral tablet (20 sources) beta-Adrenergic Tomas Start: 08-12-2023 take 100 mg by mouth once daily Metoprolol Succinate Active 100 MG PO Daily August 12, 2023 12:00am take 1 tablet by alex th every twenty-four hours Metoprolol Succinate ER 100 MG 1 tablet Orally Once a day Active take 1.5 tablets by mouth every twenty-four hours Metoprolol Succinate ER 100 MG 1.5 table t Orally Once a day Not-Taking potassium chloride 20 meq extended release oral tablet (12 sources) Start: 08-12-2023 take 20 mEq by mouth twice daily Potassium Chloride Active 20 MEQ PO Twice daily August 12, 2023 12:00am take 1 tablet by alex th every twelve hours Potassium Chloride ER 20 MEQ 1 tablet wi th food Orally Twice a day Active take 1 tablet by mouth every six hours Potassium Chloride ER 20 MEQ 1 tablet with food Orally QID Active rivaroxaban 20 mg oral tablet (20 sources) Factor Xa Inhibitor Start: 08-12-2023 take 20 mg by mouth once daily Rivaroxaban Active 20 MG PO Daily August 12, 2023 12:00am take 1 tablet by alex th every twenty-four hours Xarelto 20 MG 1 tablet with food Orally Once a day Rivaroxaban Active Semaglutide Sodium 0.3 mg/ 0.25 mL 0.25 mL (4 sources) Start: 09-18-2022 Semaglutide Sodium 0.3 mg/ 0.25 mL 0.25 mL 0.25 mL Injection Once for 7 days Sep, Active Semaglutide Sodium 0.6 mg/ 0.5 mL 0.5 mL (2 sources) Start: 01-09-2023 Semaglutide Sodium 0.6 mg/ 0.5 mL 0.5 mL 0.5 mL Injection 7 days Dec, Active 24 hr venlafaxine 150 mg extended release oral capsule (20 sources) Serotonin and Norepinephrine Reuptake Inhibitor Start: 08-12-2023 End: 08-28-2023 take 150 mg by mouth once daily Venlafaxine Active 150 MG PO Daily 90 90 August 28, 2023 10:57am take [address] [facility] every twenty-four hours Venlafaxine HCl ER 150 MG 1 capsule with food Orally Once a day Active Louann-C (8 sources) Louann-C Active Vitamin B12 1000 MCG (16 sources) take 1 tablet by mouth once john y take 1 tablet by mouth once john y Vitamin B12 1000 MCG 1 tablet Orally Once a day Active Vitamin D3 250 MCG (08353 UT ) (7 sources) Vitamin D3 250 M CG (09995 UT) as directed Orally Active Completed/Discontinued Medications [...] Classification Problem Date Documented Da te Episodic/Chronic Anxiety disorders (2 sources) Anxiety; Translations: [Anxiety disorder, unspecified] 08-28-2023 Chronic Cardiac dysrhythmias (20 sources) Atrial fibrillation; Translations: [Unspecified atrial fibrillation] Onset: 04-09-2021 Resolved: 09-27-2021 Chronic Chronic kidney disease (20 sources) Chronic kidney disease; Translations: [Chronic kidney disease, unspecified] Onset: 04-09-2021 Resolved: 09-27-2021 Chronic Conduction disorders (10 sources) Presence of cardiac pacemaker; Translations: [Cardiac pacemaker in situ] Onset: 01-22-2022 Chronic Congestive heart failure; nonhypertensive (14 sources) Acute on chronic systolic (congestive) heart failure; Translations: [Heart failure, unspecified] Onset: 03-28-2022 Chronic Diabetes mellitus without complication (13 sources) Prediabetes; Translations: [Prediabetes] Onset: 05-15-2021 Resolved: 09-27-2021 Episodic Disorders of lipid metabolism (20 sources) Hypercholesterolemia ; Translations: [Pure hypercholesterolemia , unspecified] Onset: 05-15-2021 Resolved: 09-27-2021 Chronic Essential [...] Onset: 03-28-2022 Other aftercare (1 source) Other assisted (current) drug therapy; Translations: [[employer] CURRENT DRUG THERAPY] Onset: 03-28-2022 Episodic Other aftercare (1 source) 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; Translations: [[employer] CURRNT USE ANTICOAGULANTS] Onset: 03-28-2022 Episodic Other liver diseases (20 sources) Steatosis of liver; Translations: [Fatty (change of) liver, not elsewhere classified] 08-26-2023 Chronic Other liver diseases (13 sources) Fatty (change of) liver, not elsewhere classified; Translations: [Other chronic nonalcoholic liver disease] Onset: 04-09-2021 Resolved: 09-27-2021 Chronic Other lower [...] Episodic Other nutritional; endocrine; and metabolic disorders (4 sources) Overweight; Translations: [Overweight] Episodic Other nutritional; endocrine; and metabolic disorders (1 source) Body mass index (BMI) 29.0-29.9, adult Episodic Other nutritional; endocrine; and metabolic disorders (1 source) Body mass index 25-29 - overweight; Translations: [Overweight] 08-26-2023 Episodic Other screening for suspected conditions (not mental disorders or infectious disease) (2 sources) Patient encounter status; Translations: [Encounter for screening for osteoporosis] 08-28-2023 Episodic [place]ina-; endo-; and myocarditis; cardiomyopathy (except that caused by tuberculosis or sexually transmitted disease) (1 source) Other cardiomyopathies; Translations: [OTHER CARDIOMYOPATHIES] Onset: 03-28-2022 Chronic Residual codes; unclassified (8 sources) Obstructive sleep apnea (adult) (pediatric); Translations: [Obstructive sleep apnea (adult)(pediatric)] Onset: 10-09-2021 Chronic Residual codes; unclassified (3 sources) Obstructive sleep apnea syndrome; Translations: [Obstructive sleep apnea (adult) (pediatric)] 08-26-2023 Chronic Residual codes; unclassified (2 sources) Sleep [...] (1 source) Other specified health status Episodic Residual codes; unclassified (1 source) Postmenopausal state; Translations: [Asymptomatic menopausal state] 08-28-2023 Episodic Residual codes; unclassified (1 source) Asymptomatic menopausal state; Translations: [Asymptomatic postmenopausal status (age-related) (natural)] 08-28-2023 Episodic Screening and history of mental health [...] [facility] Facility Office Visiton 03-25-2023 Follow-up visit [id number] Penny Diane 1950 F Date Provider Department Center 03/25/2023 [facility] Family History Problem Relation Age of Onset Hypertension Mother Family Status - Relation Status Age at Mother Level of Service:89257 [place] OFFICE/OUTPATIENT ESTABLISHED MOD MDM 30 MIN Normal [facility] Office Visiton 08-21-2022 Follow-up visit [id number] Penny Diane 1950 Provider Department Center 08/21/2022 JIMI VIRGEN [facility] Family History Problem Relation Age of Onset Hypertension Mother Family Status - Relation Status Age at Mother Level of Service:07156 [place] OFFICE/OUTPATIENT ESTABLISHED MOD MDM 30-39 MIN Reason for Visit and Comments: Follow-up [956260] - 2 month follow up [facility] A1C HEMOGLOBINon 08-06-2022 HbA1c (Bld) [Mass fraction] 5.4 % ubitus Other HbA1c (Bld) [Mass fraction]o n 08-06-2022 A1C HEMOGLOBIN [facility] Visiton 06-19-2022 Follow-up visit [id number] Penny Diane 1950 Provider Department Center 06/19/2022 JIMI VIRGEN [facility] Family History Problem Relation Age of Onset Hypertension Mother Family Status - Relation Status Age at Mother Level of Service:87846 [place] OFFICE/OUTPATIENT ESTABLISHED MOD MDM 30-39 MIN [facility] PROF CHEM 8 (BAS METB)on Anion gap [Moles/Vol] 11.7 mmol/L Normal [facility] Comment on above: Performed By: #### B MP #### [facility] [address] [place] [address] Dr. Baldemar Rodriguez Calcium [Mass/Vol] 9.3 mg/dL Normal 8.5-10.1 [facility] Comment on above: Performed By: #### B MP #### [facility] [address] [address] [address] Baldemar Rodriguez Chloride [Moles/Vol] 106 mmol/L Normal 98-107 [facility] Comment on above: Performed By: #### B MP #### [facility] [address] [address] [address] Baldemar Rodriguez CO2 [Moles/Vol] 31.2 mmol/L Normal 21.0-32.0 [facility] Comment on above: Performed By: #### B MP #### [facility] [address] [place] [address] Dr. Baldemar Rodriguez Creatinine [Mass/Vol] 0.92 mg/dL Normal 0.55-1.02 [facility] Comment on above: Performed By: #### B MP #### [facility] [address] [place] [address] Dr. Baldemar Rodriguez EGFR-AF CZECH >60 Normal >=60 [facility] Comment on above: Performed By: #### B MP #### [facility] [address] [place] [address] Dr. Baldemar Rodriguez EGFR-NON AF CZECH =60 Normal >=60 [facility] Comment on above: Performed By: #### B MP #### [facility] [address] [place] [address] Dr. Baldemar Rodriguez Glucose [Mass/Vol] 96 mg/dL Normal 74-106 [facility] Comment on above: Performed By: #### B MP #### [facility] [address] [place] [address] Dr. Baldemar Rodriguez Potassium [Moles/Vol] 3.9 mmol/L Normal 3.5-5.1 [facility] Comment on above: Performed By: #### B MP #### [facility] [address] [place] [address] Dr. Baldemar Rodriguez Sodium [Moles/Vol] 145 mmol/L Normal 136-145 [facility] Comment on above: Performed By: #### B MP #### [facility] [address] [place] [address] Dr. Baldemar Rodriguez Urea nitrogen [Mass/Vol] 13.0 mg/dL Normal 7.0-18.0 [facility] Comment on above: Performed By: #### B MP #### [facility] [address] [place] [address] Dr. Baldemar Rodriguez Urea nitrogen/Creatinine [Mass ratio] 14.1 mg/mg Normal [facility] Comment on above: Performed By: #### B MP #### [facility] [address] [address] [address] Baldemar Rodriguez 36on 04-24-2022 36 Patient can try benadryl, if no relief or she begins to experience SOB, tongue swelling, throat swelling, scratchy throat then should report to ED [facility] 36 Patient called c/o red face and neck. Says they itch, no sores. She had AV node ablation 2 days ago, on 04/22. She said she hasn't started any new medications recently. No SOB. Any advice? Thanks. Normal [facility] PROF CHEM 8 (BAS METB)on Anion gap [Moles/Vol] 8.8 mmol/L Normal [facility] Comment on above: Performed By: #### B MP #### [facility] [address] [address] [address] Baldemar Rodriguez Calcium [Mass/Vol] 9.5 mg/dL Normal 8.5-10.1 [facility] Comment on above: Performed By: #### B MP #### [facility] [address] [address] [address] Baldemar Rodriguez Chloride [Moles/Vol] 103 mmol/L Normal 98-107 [facility] Comment on above: Performed By: #### B MP #### [facility] [address] [address] [address] Baldemar Rodriguez CO2 [Moles/Vol] 32.5 mmol/L Critically high 21.0-32.0 [facility] Comment on above: Performed By: #### B MP #### [facility] [address] [address] [address] Baldemar Rodriguez Creatinine [Mass/Vol] 0.92 mg/dL Normal 0.55-1.02 [facility] Comment on above: Performed By: #### B MP #### [facility] [id number] Baldemar Rodriguez EGFR-AF CZECH >60 Normal >=60 [place] Comment on above: Performed By: #### B MP #### [facility] [address] [address] [address] Baldemar Rodriguez EGFR-NON AF CZECH =60 Normal >=60 [facility] Comment on above: Performed By: #### B MP #### [facility] [address] [address] [address] Baldemar Rodriguez Glucose [Mass/Vol] 79 mg/dL Normal 74-106 [facility] Comment on above: Performed By: #### B MP #### [facility] [address] [address] [address] Baldemar Rodriguez Potassium [Moles/Vol] 4.3 mmol/L Normal 3.5-5.1 [facility] Comment on above: Performed By: #### B MP #### [facility] [address] [address] [address] Baldemar Rodriguez Sodium [Moles/Vol] 140 mmol/L Normal 136-145 [facility] Comment on above: Performed By: #### B MP #### [facility] [address] [address] [address] Baldemar Rodriguez Urea nitrogen [Mass/Vol] 19.0 mg/dL Critically high 7.0-18.0 [facility] Comment on above: Performed By: #### B MP #### [facility] [address] [address] [address] Baldemar Rodriguez Urea nitrogen/Creatinine [Mass ratio] 20.7 mg/mg Normal [facility] Comment on above: Performed By: #### B MP #### [facility] [address] [address] [address] Baldemar Rodriguez CBC AUTO DIFFon 03-26-2022 BASO # 0.0 103/ul Normal 0.0-0.1 [facility] Comment on above: Performed By: #### B MP #### [facility] [address] [address] [address] Baldemar Rodriguez Basophils/100 WBC (Bld) 0.6 % Normal 0.2-2.0 [facility] Comment on above: Performed By: #### B MP #### [facility] [address] [place] [address] Dr. Baldemar Rodriguez EO # 0.3 103/ul Normal 0.0-0.7 [facility] Comment on above: Performed By: #### B MP #### [facility] [address] [place] [address] Dr. Baldemar Rodriguez Eosinophils/100 WBC (Bld) 4.7 % Normal 0.9-7.0 [facility] Comment on above: Performed By: #### B MP #### [facility] [address] [place] [address] Dr. Baldemar Rodriguez Erythrocyte distribution width (RBC) [Ratio] 14.7 % Normal 11.0-15.0 [facility] Comment on above: Performed By: #### B MP #### [facility] [address] [place] [address] Dr. Baldemar Rodriguez Hematocrit (Bld) [Volume fraction] 39.6 % Normal 36.0-48.0 [facility] Comment on above: Performed By: #### B MP #### [facility] [address] [place] [address] Dr. Baldemar Rodriguez Hemoglobin (Bld) [Mass/Vol] 12.8 g/dL Normal 12.0-16.0 [facility] Comment on above: Performed By: #### B MP #### [facility] [address] [place] [address] Dr. Baldemar Rodriguez IG # 0.02 10e3/ul Normal 0.00-0.03 [facility] Comment on above: Performed By: #### B MP #### [facility] [address] [place] [address] Dr. Baldemar Rodriguez IG % 0.3 % Normal 0.0-0.5 [facility] Comment on above: Performed By: #### B MP #### [facility] [address] [place] [address] Dr. Baldemar Rodriguez LYMPH # 2.3 103/ul Normal 1.2-3.8 [facility] Comment on above: Performed By: #### B MP #### [facility] [address] [place] [address] Dr. Baldemar Rodriguez Lymphocytes/100 WBC (Bld) 33.9 % Normal 20.5-60.0 [facility] Comment on above: Performed By: #### B MP #### [facility] [address] [place] [address] Dr. Baldemar Rodriguez MANUAL DIFF REQ NO Normal [facility] Comment on above: Performed By: #### B MP #### [facility] [address] [place] [address] Dr. Baldemar Rodriguez MCH (RBC) [Entitic mass] 30.0 pg Normal 26.7-34.0 [facility] Comment on above: Performed By: #### B MP #### [facility] [address] [place] [address] Dr. Baldemar Rodriguez MCHC (RBC) [Mass/Vol] 32.3 g/dL Normal 29.9-35.2 [facility] Comment on above: Performed By: #### B MP #### [facility] [address] [place] [address] Dr. Baldemar Rodriguez MCV (RBC) [Entitic vol] 92.7 fL Normal 81.0-99.0 [facility] Comment on above: Performed By: #### B MP #### [facility] [address] [place] [address] Dr. Baldemar Rodriguez MONO # 0.6 103/ul Normal 0.3-0.8 [facility] Comment on above: Performed By: #### B MP #### [facility] [address] [place] [address] Dr. Baldemar Rodriguez Monocytes/100 WBC (Bld) 8.7 % Normal 1.7-12.0 [facility] Comment on above: Performed By: #### B MP #### [facility] [address] [place] [address] Dr. Baldemar Rodriguez NEUT # 3.4 103/ul Normal 1.4-6.5 [facility] Comment on above: Performed By: #### B MP #### [facility] [address] [place] [address] Dr. Baldemar Rodriguez Neutrophils/100 WBC (Bld) 51.8 % Normal 43.0-75.0 [facility] Comment on above: Performed By: #### B MP #### [facility] [address] [place] [address] Dr. Baldemar Rodriguez Platelet mean volume (Bld) [Entitic vol] 9.6 fL Normal 9.5-13.5 [facility] Comment on above: Performed By: #### B MP #### [facility] [address] [place] [address] Dr. Baldemar Rodriguez PLT 233 103/ul Normal 150-450 [facility] Comment on above: Performed By: #### B MP #### [facility] [address] [place] [address] Dr. Baldemar Rodriguez RBC 4.27 106/ul Normal 4.20-5.40 [facility] Comment on above: Performed By: #### B MP #### [facility] [address] [place] [address] Dr. Baldemar Rodriguez WBC 6.6 103/ul Normal 4.0-11.0 [facility] Comment on above: Performed By: #### B MP #### [facility] [address] [place] [address] Dr. Baldemar Rodriguez PROF CHEM 8 (BAS METB)on Anion gap [Moles/Vol] 9.2 mmol/L Normal [facility] Comment on above: Performed By: #### B MP #### [facility] [address] [place] [address] Dr. Baldemar Rodriguez Calcium [Mass/Vol] 9.2 mg/dL Normal 8.5-10.1 [facility] Comment on above: Performed By: #### B MP #### [facility] [address] [place] [address] Dr. Baldemar Rodriguez Chloride [Moles/Vol] 102 mmol/L Normal 98-107 [facility] Comment on above: Performed By: #### B MP #### [facility] [address] [place] [address] Dr. Baldemar Rodriguez CO2 [Moles/Vol] 35.8 mmol/L Critically high 21.0-32.0 [facility] Comment on above: Performed By: #### B MP #### [facility] [address] [address] [address] Baldemar Rodriguez Creatinine [Mass/Vol] 0.91 mg/dL Normal 0.55-1.02 [facility] Comment on above: Performed By: #### B MP #### [facility] [address] [address] [address] Baldemar Rodriguez EGFR-AF CZECH >60 Normal >=60 [facility] Comment on above: Performed By: #### B MP #### [facility] [facility] [address] [place] [address] Dr. Baldemar Rodriguez EGFR-NON AF CZECH >60 Normal >=60 [facility] Comment on above: Performed By: #### B MP #### [facility] [address] [place] [address] Dr. Baldemar Rodriguez Glucose [Mass/Vol] 93 mg/dL Normal 74-106 [facility] Comment on above: Performed By: #### B MP #### [facility] [address] [address] [address] Baldemar Rodriguez Potassium [Moles/Vol] 3.0 mmol/L Critically low 3.5-5.1 [facility] Comment on above: Performed By: #### B MP #### [facility] [address] [place] [address] Dr. Baldemar Rodriguez Sodium [Moles/Vol] 144 mmol/L Normal 136-145 [facility] Comment on above: Performed By: #### B MP #### [facility] [address] [address] [address] Baldemar Rodriguez Urea nitrogen [Mass/Vol] 19.0 mg/dL Critically high 7.0-18.0 [facility] Comment on above: Performed By: #### B MP #### [facility] [address] [place] [address] Dr. Baldemar Rodriguez Urea nitrogen/Creatinine [Mass ratio] 20.9 mg/mg Normal [facility] Comment on above: Performed By: #### B MP #### [facility] [address] [place] [address] Dr. Baldemar Rodriguez CBC AUTO DIFFon 03-25-2022 BASO # 0.0 103/ul Normal 0.0-0.1 [facility] Comment on above: Performed By: #### B MP #### [facility] [address] [place] [address] Dr. Baldemar Rodriguez Basophils/100 WBC (Bld) 0.5 % Normal 0.2-2.0 [facility] Comment on above: Performed By: #### B MP #### [facility] [address] [place] [address] Dr. Baldemar Rodriguez EO # 0.3 103/ul Normal 0.0-0.7 [facility] Comment on above: Performed By: #### B MP #### [facility] [address] [place] [address] Dr. Baldemar Rodriguez Eosinophils/100 WBC (Bld) 3.2 % Normal 0.9-7.0 [facility] Comment on above: Performed By: #### B MP #### [facility] [address] [place] [address] Dr. Baldemar Rodriguez Erythrocyte distribution width (RBC) [Ratio] 14.7 % Normal 11.0-15.0 [facility] Comment on above: Performed By: #### B MP #### [facility] [address] [place] [address] Dr. Baldemar Rodriguez Hematocrit (Bld) [Volume fraction] 40.8 % Normal 36.0-48.0 [facility] Comment on above: Performed By: #### B MP #### [facility] [address] [place] [address] Dr. Baldemar Rodriguez Hemoglobin (Bld) [Mass/Vol] 13.4 g/dL Normal 12.0-16.0 [facility] Comment on above: Performed By: #### B MP #### [facility] [address] [place] [address] Dr. Baldemar Rodriguez IG # 0.02 10e3/ul Normal 0.00-0.03 [facility] Comment on above: Performed By: #### B MP #### [facility] [address] [place] [address] Dr. Baldemar Rodriguez IG % 0.2 % Normal 0.0-0.5 [facility] Comment on above: Performed By: #### B MP #### [facility] [address] [place] [address] Dr. Baldemar Rodriguez LYMPH # 2.0 103/ul Normal 1.2-3.8 [facility] Comment on above: Performed By: #### B MP #### [facility] [address] [place] [address] Dr. Baldemar Rodriguez Lymphocytes/100 WBC (Bld) 23.3 % Normal 20.5-60.0 [facility] Comment on above: Performed By: #### B MP #### [facility] [address] [place] [address] Dr. Baldemar Rodriguez MANUAL DIFF REQ NO Normal [facility] Comment on above: Performed By: #### B MP #### [facility] [address] [place] [address] Dr. Baldemar Rodriguez MCH (RBC) [Entitic mass] 30.3 pg Normal 26.7-34.0 [facility] Comment on above: Performed By: #### B MP #### [facility] [address] [place] [address] Dr. Baldemar Rodriguez MCHC (RBC) [Mass/Vol] 32.8 g/dL Normal 29.9-35.2 [facility] Comment on above: Performed By: #### B MP #### [facility] [address] [place] [address] Dr. Baldemar Rodriguez MCV (RBC) [Entitic vol] 92.3 fL Normal 81.0-99.0 [facility] Comment on above: Performed By: #### B MP #### [facility] [address] [place] [address] Dr. Baldemar Rodriguez MONO # 0.6 103/ul Normal 0.3-0.8 [facility] Comment on above: Performed By: #### B MP #### [facility] [address] [address] [address] Baldemar Rodriguez Monocytes/100 WBC (Bld) 7.5 % Normal 1.7-12.0 [facility] Comment on above: Performed By: #### B MP #### [facility] [address] [place] [address] Dr. Baldemar Rodriguez NEUT # 5.5 103/ul Normal 1.4-6.5 [facility] Comment on above: Performed By: #### B MP #### [facility] [address] [place] [address] Dr. Baldemar Rodriguez Neutrophils/100 WBC (Bld) 65.3 % Normal 43.0-75.0 [facility] Comment on above: Performed By: #### B MP #### [facility] [address] [place] [address] Dr. Baldemar Rodriguez Platelet mean volume (Bld) [Entitic vol] 9.4 fL Critically low 9.5-13.5 [facility] Comment on above: Performed By: #### B MP #### [facility] [address] [place] [address] Dr. Baldemar Rodriguez PLT 258 103/ul Normal 150-450 [facility] Comment on above: Performed By: #### B MP #### [facility] [address] [place] [address] Dr. Baldemar Rodriguez RBC 4.42 106/ul Normal 4.20-5.40 [facility] Comment on above: Performed By: #### B MP #### [facility] [address] [place] [address] Dr. Baldemar Rodriguez WBC 8.4 103/ul Normal 4.0-11.0 [facility] Comment on above: Performed By: #### B MP #### [facility] [address] [place] [address] Dr. Baldemar Rodriguez POTASSIUMon 03-25-2022 Potassium [Moles/Vol] 2.7 mmol/L Critically low 3.5-5.1 [facility] Comment on above: Performed By: #### B MP #### [facility] [address] [address] [address] Baldemar Rodriguez PROF CHEM 8 (BAS METB)on Anion gap [Moles/Vol] 9.8 mmol/L Normal [facility] Comment on above: Performed By: #### B MP #### [facility] [address] [address] [address] Baldemar Rodriguez Calcium [Mass/Vol] 9.0 mg/dL Normal 8.5-10.1 [facility] Comment on above: Performed By: #### B MP #### [facility] [address] [address] [address] Baldemar Rodriguez Chloride [Moles/Vol] 100 mmol/L Normal 98-107 [facility] Comment on above: Performed By: #### B MP #### [facility] [address] [place] [address] Dr. Baldemar Rodriguez CO2 [Moles/Vol] 35.8 mmol/L Critically high 21.0-32.0 [facility] Comment on above: Performed By: #### B MP #### [facility] [address] [address] [address] Baldemar Rodriguez Creatinine [Mass/Vol] 0.85 mg/dL Normal 0.55-1.02 [facility] Comment on above: Performed By: #### B MP #### [facility] [address] [address] [address] Baldemar Rodriguez EGFR-AF CZECH >60 Normal >=60 [facility] Comment on above: Performed By: #### B MP #### [facility] [address] [address] [address] Baldemar Rodriguez EGFR-NON AF CZECH >60 Normal >=60 [facility] Comment on above: Performed By: #### B MP #### [facility] [address] [address] [address] Baldemar Rodriguez Glucose [Mass/Vol] 100 mg/dL Normal 74-106 [facility] Comment on above: Performed By: #### B MP #### [facility] [address] [address] [address] Baldemar Rodriguez Potassium [Moles/Vol] 2.5 mmol/L Critically low 3.5-5.1 [facility] Comment on above: Performed By: #### B MP #### [facility] [address] [place] [address] Dr. Baldemar Rodriguez Sodium [Moles/Vol] 142 mmol/L Normal 136-145 [facility] Comment on above: Performed By: #### B MP #### [facility] [address] [place] [address] Dr. Baldemar Rodriguez Urea nitrogen [Mass/Vol] 15.0 mg/dL Normal 7.0-18.0 [facility] Comment on above: Performed By: #### B MP #### [facility] [address] [place] [address] Dr. Baldemar Rodriguez Urea nitrogen/Creatinine [Mass ratio] 17.6 mg/mg Normal [facility] Comment on above: Performed By: #### B MP #### [facility] [address] [place] [address] Dr. Baldemar Rodriguez CBC AUTO DIFFon 03-24-2022 BASO # 0.0 103/ul Normal 0.0-0.1 [facility] Comment on above: Performed By: #### C MP, CMADM, BNP #### [facility] [address] [place] [address] Dr. Baldemar Rodriguez Basophils/100 WBC (Bld) 0.4 % Normal 0.2-2.0 [facility] Comment on above: Performed By: #### C MP, CMADM, BNP #### [facility] [address] [place] [address] Dr. Baldemar Rodriguez EO # 0.1 103/ul Normal 0.0-0.7 [facility] Comment on above: Performed By: #### C MP, CMADM, BNP #### [facility] [address] [place] [address] Dr. Baldemar Rodriguez Eosinophils/100 WBC (Bld) 1.2 % Normal 0.9-7.0 [facility] Comment on above: Performed By: #### C MP, CMADM, BNP #### [facility] [address] [address] [address] Baldemar Rodriguez Erythrocyte distribution width (RBC) [Ratio] 14.9 % Normal 11.0-15.0 [facility] Comment on above: Performed By: #### C MP, CMADM, BNP #### [facility] [address] [place] [address] Dr. Baldemar Rodriguez Hematocrit (Bld) [Volume fraction] 36.3 % Normal 36.0-48.0 [facility] Comment on above: Performed By: #### C MP, CMADM, BNP #### [facility] [address] [place] [address] Dr. Baldemar Rodriguez Hemoglobin (Bld) [Mass/Vol] 11.9 g/dL Critically low 12.0-16.0 [facility] Comment on above: Performed By: #### C MP, CMADM, BNP #### [facility] [address] [place] [address] Dr. Baldemar Rodriguez IG # 0.04 10e3/ul Critically high 0.00-0.03 [facility] Comment on above: Performed By: #### C MP, CMADM, BNP #### [facility] [address] [place] [address] Dr. Baldemar Rodriguez IG % 0.4 % Normal 0.0-0.5 [facility] Comment on above: Performed By: #### C MP, CMADM, BNP #### [facility] [address] [place] [address] Dr. Baldemar Rodriguez LYMPH # 2.5 103/ul Normal 1.2-3.8 [facility] Comment on above: Performed By: #### C MP, CMADM, BNP #### [facility] [address] [place] [address] Dr. Baldemar Rodriguez Lymphocytes/100 WBC (Bld) 22.3 % Normal 20.5-60.0 [facility] Comment on above: Performed By: #### C MP, CMADM, BNP #### [facility] [address] [place], [place] [id number] Dr. Baldemar Rodriguez MANUAL DIFF REQ NO Normal [facility] Comment on above: Performed By: #### C MP, CMADM, BNP #### [facility] [address] [place] [address] Dr. Baldemar Rodriguez MCH (RBC) [Entitic mass] 30.4 pg Normal 26.7-34.0 [facility] Comment on above: Performed By: #### C MP, CMADM, BNP #### [facility] [address] [place] [address] Dr. Baldemar Rodriguez MCHC (RBC) [Mass/Vol] 32.8 g/dL Normal 29.9-35.2 [facility] Comment on above: Performed By: #### C MP, CMADM, BNP #### [facility] [address] [place] [address] Dr. Baldemar Rodriguez MCV (RBC) [Entitic vol] 92.6 fL Normal 81.0-99.0 [facility] Comment on above: Performed By: #### C MP, CMADM, BNP #### [facility] [address] [place] [address] Dr. Baldemar Rodriguez MONO # 0.7 103/ul Normal 0.3-0.8 [facility] Comment on above: Performed By: #### C MP, CMADM, BNP #### [facility] [address] [place] [address] Dr. Baldemar Rodriguez Monocytes/100 WBC (Bld) 6.1 % Normal 1.7-12.0 [facility] Comment on above: Performed By: #### C MP, CMADM, BNP #### [facility] [address] [place] [address] Dr. Baldemar Rodriguez NEUT # 7.7 103/ul Critically high 1.4-6.5 [facility] Comment on above: Performed By: #### C MP, CMADM, BNP #### [facility] [address] [place] [address] Dr. Baldemar Rodriguez Neutrophils/100 WBC (Bld) 69.6 % Normal 43.0-75.0 [facility] Comment on above: Performed By: #### C MP, CMADM, BNP #### [facility] [address] [address] [address] Baldemar Rodriguez Platelet mean volume (Bld) [Entitic vol] 9.5 fL Normal 9.5-13.5 [facility] Comment on above: Performed By: #### C MP, CMADM, BNP #### [facility] [address] [address] [address] Baldemar Rodriguez PLT 237 103/ul Normal 150-450 [facility] Comment on above: Performed By: #### C MP, CMADM, BNP #### [facility] [address] [place] [address] Dr. Baldemar Rodriguez RBC 3.92 106/ul Critically low 4.20-5.40 [facility] Comment on above: Performed By: #### C MP, CMADM, BNP #### [facility] [address] [place] [address] Dr. Baldemar Rodriguez WBC 11.0 103/ul Normal 4.0-11.0 [facility] Comment on above: Performed By: #### C MP, CMADM, BNP #### [facility] [address] [place] [address] Dr. Baldemar Rodriguez PROF CHEM 8 (BAS METB)on Anion gap [Moles/Vol] 11.5 mmol/L Normal [facility] Comment on above: Performed By: #### B MP #### [facility] [address] [place] [address] Dr. Baldemar Rodriguez Calcium [Mass/Vol] 9.2 mg/dL Normal 8.5-10.1 [facility] Comment on above: Performed By: #### B MP #### [facility] [address] [place] [address] Dr. Baldemar Rodriguez Chloride [Moles/Vol] 106 mmol/L Normal 98-107 [facility] Comment on above: Performed By: #### B MP #### [facility] [address] [place] [address] Dr. Baldemar Rodriguez CO2 [Moles/Vol] 29.8 mmol/L Normal 21.0-32.0 [place] Comment on above: Performed By: #### B MP #### [facility] [address] [address] [address] Baldemar Rodriguez Creatinine [Mass/Vol] 0.81 mg/dL Normal 0.55-1.02 [facility] Comment on above: Performed By: #### B MP #### [facility] [address] [address] [address] Baldemar Rodriguez EGFR-AF CZECH >60 Normal >=60 [place] Comment on above: Performed By: #### B MP #### [facility] [address] [address] [address] Baldemar Rodriguez EGFR-NON AF CZECH >60 Normal >=60 [facility] Comment on above: Performed By: #### B MP #### [facility] [address] [address] [address] Baldemar Rodriguez Glucose [Mass/Vol] 102 mg/dL Normal 74-106 [facility] Comment on above: Performed By: #### B MP #### [facility] [address] [address] [address] Baldemar Rodriguez Potassium [Moles/Vol] 3.3 mmol/L Critically low 3.5-5.1 [facility] Comment on above: Performed By: #### B MP #### [facility] [address] [address] [address] Baldemar Rodriguez Sodium [Moles/Vol] 144 mmol/L Normal 136-145 [facility] Comment on above: Performed By: #### B MP #### [facility] [address] [address] [address] Baldemar Rodriguez Urea nitrogen [Mass/Vol] 17.0 mg/dL Normal 7.0-18.0 [facility] Comment on above: Performed By: #### B MP #### [facility] [address] [address] [address] Baldemar Rodriguez Urea nitrogen/Creatinine [Mass ratio] 21.0 mg/mg Normal [facility] Comment on above: Performed By: #### B MP #### [facility] [address] [address] [address] Baldemar Rodriguez CBC AUTO DIFFon 03-23-2022 BASO # 0.0 103/ul Normal 0.0-0.1 [facility] Comment on above: Performed By: #### C BC #### [facility] [address] [address] [address] Baldemar Rodriguez Basophils/100 WBC (Bld) 0.0 % Critically low 0.2-2.0 [facility] Comment on above: Performed By: #### C BC #### [facility] [address] [address] [address] Baldemar Rodriguez EO # 0.0 103/ul Normal 0.0-0.7 [facility] Comment on above: Performed By: #### C BC #### [facility] [address] [place] [address] Dr. Baldemar Rodriguez Eosinophils/100 WBC (Bld) 0.0 % Critically low 0.9-7.0 [facility] Comment on above: Performed By: #### C BC #### [facility] [address] [address] [address] Baldemar Rodriguez Erythrocyte distribution width (RBC) [Ratio] 14.6 % Normal 11.0-15.0 [facility] Comment on above: Performed By: #### C BC #### [facility] [address] [place] [address] Dr. Baldemar Rodriguez Hematocrit (Bld) [Volume fraction] 34.1 % Critically low 36.0-48.0 [facility] Comment on above: Performed By: #### C BC #### [facility] [address] [address] [address] Baldemar Rodriguez Hemoglobin (Bld) [Mass/Vol] 11.0 g/dL Critically low 12.0-16.0 [facility] Comment on above: Performed By: #### C BC #### [facility] [address] [address] [address] Baldemar Rodriguez IG # 0.03 10e3/ul Normal 0.00-0.03 [facility] Comment on above: Performed By: #### C BC #### [facility] [address] [place] [address] Dr. Baldemar Rodriguez IG % 0.7 % Critically high 0.0-0.5 [facility] Comment on above: Performed By: #### C BC #### [facility] [address] [place] [address] Dr. Baldemar Rodriguez LYMPH # 0.9 103/ul Critically low 1.2-3.8 [facility] Comment on above: Performed By: #### C BC #### [facility] [address] [place] [address] Dr. Baldemar Rodriguez Lymphocytes/100 WBC (Bld) 20.7 % Normal 20.5-60.0 [facility] Comment on above: Performed By: #### C BC #### [facility] [address] [place] [address] Dr. Baldemar Rodriguez MANUAL DIFF REQ NO Normal [facility] Comment on above: Performed By: #### C BC #### [facility] [address] [place] [address] Dr. Baldemar Rodriguez MCH (RBC) [Entitic mass] 30.5 pg Normal 26.7-34.0 [facility] Comment on above: Performed By: #### C BC #### [facility] [address] [place] [address] Dr. Baldemar Rodriguez MCHC (RBC) [Mass/Vol] 32.3 g/dL Normal 29.9-35.2 [facility] Comment on above: Performed By: #### C BC #### [facility] [address] [place] [address] Dr. Baldemar Rodriguez MCV (RBC) [Entitic vol] 94.5 fL Normal 81.0-99.0 [facility] Comment on above: Performed By: #### C BC #### [facility] [address] [place] [address] Dr. Baldemar Rodriguez MONO # 0.2 103/ul Critically low 0.3-0.8 [facility] Comment on above: Performed By: #### C BC #### [facility] [address] [address] [address] Baldemar Rodriguez Monocytes/100 WBC (Bld) 4.5 % Normal 1.7-12.0 [facility] Comment on above: Performed By: #### C BC #### [facility] [address] [address] [address] Baldemar Rodriguez NEUT # 3.2 103/ul Normal 1.4-6.5 [facility] Comment on above: Performed By: #### C BC #### [facility] [address] [address] [address] Baldemar Rodriguez Neutrophils/100 WBC (Bld) 74.1 % Normal 43.0-75.0 [facility] Comment on above: Performed By: #### C BC #### [facility] [address] [place] [address] Dr. Baldemar Rodriguez Platelet mean volume (Bld) [Entitic vol] 9.7 fL Normal 9.5-13.5 [facility] Comment on above: Performed By: #### C BC #### [facility] [address] [address] [address] Baldemar Rodirguez PLT 181 103/ul Normal 150-450 [facility] Comment on above: Performed By: #### C BC #### [facility] [address] [place] [address] Dr. Baldemar Rodriguez RBC 3.61 106/ul Critically low 4.20-5.40 [facility] Comment on above: Performed By: #### C BC #### [facility] [address] [place] [address] Dr. Baldemar Rodriguez WBC 4.3 103/ul Normal 4.0-11.0 [facility] Comment on above: Performed By: #### C BC #### [facility] [address] [place] [address] Dr. Baldemar Rodriguez CTA CHEST WO W CONon 03-23-2 023 CTA CHEST WO W CON CTA [...] by: MED TUTTLE Date: 2022-03-23 15:31 Normal [facility] GLYCOHEMOGLOBIN A1Con 2022 ADA RECOMMENDATION SEE BELOW Normal [facility] Comment on above: Result Comment: ADA RECOMMENDED LIMIT 4.0 - 6.0 ADA THERAPEUTIC TARGET < 7.0 ACTION SUGGESTED > 7.0 Performed By: #### B MP #### [facility] [address] [place], [place] [address] Dr. Baldemar Rodriguez Glucose [Mass/Vol] 114 mg/dL Normal [facility] Comment on above: Performed By: #### B MP #### [facility] [address] [place], [place] [address] Dr. Baldemar Rodriguez HbA1c (Bld) [Mass fraction] 5.6 % Normal 4.5-6.2 [facility] Comment on above: Performed By: #### B MP #### [facility] [address] [place] [address] Dr. Baldemar Rodriguez MAGNESIUMon 03-23-2022 Magnesium [Mass/Vol] 1.7 mg/dL Critically low 1.8-2.4 [facility] Comment on above: Performed By: #### B MP #### [facility] [address] [place] [address] Dr. Baldemar Rodriguez PROF CHEM 8 (BAS METB)on Anion gap [Moles/Vol] 11.7 mmol/L Normal [facility] Comment on above: Performed By: #### C TOO GUNNDM, BNP #### [facility] [address] [place] [address] Dr. Baldemar Rodriguez Calcium [Mass/Vol] 9.0 mg/dL Normal 8.5-10.1 [facility] Comment on above: Performed By: #### C TOO GUNNDM, BNP #### [facility] [address] [place] [address] Dr. Baldemar Rodriguez Chloride [Moles/Vol] 103 mmol/L Normal 98-107 [facility] Comment on above: Performed By: #### C TOO GUNNDM, BNP #### [facility] [address] [place] [address] Dr. Baldemar Rodriguez CO2 [Moles/Vol] 28.6 mmol/L Normal 21.0-32.0 [facility] Comment on above: Performed By: #### C LUIS A CMADM, BNP #### [facility] [address] [place] [address] Dr. Baldemar Rodriguez Creatinine [Mass/Vol] 0.83 mg/dL Normal 0.55-1.02 [facility] Comment on above: Performed By: #### C TOO GUNNDM, BNP #### [facility] [address] [place] [address] Dr. Baldemar Rodriguez EGFR-AF CZECH >60 Normal >=60 [facility] Comment on above: Performed By: #### C LUIS A CMADM, BNP #### [facility] [address] [place] [address] Dr. Baldemar Rodriguez EGFR-NON AF CZECH >60 Normal >=60 [facility] Comment on above: Performed By: #### C TOO GUNNDM, BNP #### [facility] [address] [address] [address] Baldemar Rodriguez Glucose [Mass/Vol] 115 mg/dL Critically high 74-106 T [facility] Comment on above: Performed By: #### C TOO GUNNDM, BNP #### [facility] [address] [address] [address] Baldemar Rodriguez Potassium [Moles/Vol] 3.3 mmol/L Critically low 3.5-5.1 [facility] Comment on above: Performed By: #### C TOO GUNNDM, BNP #### [facility] [address] [address] [address] Baldemar Rodriguez Sodium [Moles/Vol] 140 mmol/L Normal 136-145 [facility] Comment on above: Performed By: #### C LUIS A CMADM, BNP #### [facility] [address] [address] [address] Baldemar Rodriguez Urea nitrogen [Mass/Vol] 14.0 mg/dL Normal 7.0-18.0 [facility] Comment on above: Performed By: #### C LUIS A CMADM, BNP #### [facility] [address] [address] [address] Baldemar Rodriguez Urea nitrogen/Creatinine [Mass ratio] 16.9 mg/mg Normal [facility] Comment on above: Performed By: #### C LUIS A CMADM, BNP #### [facility] [address] [address] [address] Baldemar Rodriguez TSHon 03-23-2022 TSH 0.588 uIU/mL Normal 0.358-3.740 [facility] Comment on above: Performed By: #### M G, TSH #### [facility] [address] [address] [address] Baldemar Rodriguez BNPon 03-22-2022 Natriuretic peptide B (Bld) [Mass/Vol] 2517.0 pg/mL Critically high <=900.0 [facility] Comment on above: Performed By: #### C MP, CMADM, BNP #### [facility] [address] [place] [address] Dr. Baldemar Rodriguez CARDIAC FREYA ADMITon 023 CK [Catalytic activity/Vol] 33 U/L Normal 26-192 [facility] Comment on above: Performed By: #### C MP, CMADM, BNP #### [facility] [address] [place] [address] Dr. Baldemar Rodriguez CK.MB [Mass/Vol] ng/mL Normal <=3.60 [facility] Comment on above: Performed By: #### C MP, CMADM, BNP #### [facility] [address] [place] [address] Dr. Baldemar Rodriguez HSTROP 11.9 pg/mL Normal 4.0-51.3 [facility] Comment on above: Result Comment: CUT- OFF POINTS HAVE BEEN ESTABLISHED BASED ON THE FOURTH UNIVERSAL DEFINITIONS OF MYOCARDIAL INFARCTION. THE UPPER REFERENCE LIMIT (URL) OF TROPONIN, DEFINED THE 99TH PERCENTILE OF cTnI DISTRIBUTION IN A REFERENCE POPULATION, HAS BEEN CONFIRMED THE DECISION THRESHOLD FOR MT DIAGNOSIS. Performed By: #### C MP, CMADM, BNP #### [facility] [address] [place] [address] Dr. Baldemar Rodriguez EMILY 29 ng/mL Normal 9-82 [facility] Comment on above: Performed By: #### C MP, CMADM, BNP #### [facility] [address] [place] [address] Dr. Baldemar Rodriguez CBC AUTO DIFFon 03-22-2022 BASO # 0.1 103/ul Normal 0.0-0.1 [facility] Comment on above: Performed By: #### C MP, CMADM, BNP #### [facility] [address] [place] [address] Dr. Baldemar Rodriguez Basophils/100 WBC (Bld) 0.8 % Normal 0.2-2.0 [facility] Comment on above: Performed By: #### C MP, CMADM, BNP #### [facility] [address] [address] [address] Baldemar Rodriguez EO # 0.1 103/ul Normal 0.0-0.7 [facility] Comment on above: Performed By: #### C MP, CMADM, BNP #### [facility] [address] [place] [address] Dr. Baldemar Rodriguez Eosinophils/100 WBC (Bld) 2.2 % Normal 0.9-7.0 [facility] Comment on above: Performed By: #### C MP, CMADM, BNP #### [facility] [address] [place] [address] Dr. Baldemar Rodriguez Erythrocyte distribution width (RBC) [Ratio] 15.1 % Critically high 11.0-15.0 [facility] Comment on above: Performed By: #### C MP, CMADM, BNP #### [facility] [address] [place] [address] Dr. Baldemar Rodriguez Hematocrit (Bld) [Volume fraction] 39.2 % Normal 36.0-48.0 [facility] Comment on above: Performed By: #### C MP, CMADM, BNP #### [facility] [address] [place] [address] Dr. Baldemar Rodriguez Hemoglobin (Bld) [Mass/Vol] 12.6 g/dL Normal 12.0-16.0 [facility] Comment on above: Performed By: #### C MP, CMADM, BNP #### [facility] [address] [place] [address] Dr. Baldemar Rodriguez IG # 0.02 10e3/ul Normal 0.00-0.03 [facility] Comment on above: Performed By: #### C MP, CMADM, BNP #### [facility] [address] [place] [address] Dr. Baldemar Rodriguez IG % 0.3 % Normal 0.0-0.5 [facility] Comment on above: Performed By: #### C MP, CMADM, BNP #### [facility] [address] [place] [address] Dr. Baldemar Rodriguez LYMPH # 1.6 103/ul Normal 1.2-3.8 [facility] Comment on above: Performed By: #### C MP, CMADM, BNP #### [facility] [address] [place] [address] Dr. Baldemar Rodriguez Lymphocytes/100 WBC (Bld) 27.3 % Normal 20.5-60.0 [facility] Comment on above: Performed By: #### C MP, CMADM, BNP #### [facility] [address] [place] [address] Dr. Baldemar Rodriguez MANUAL DIFF REQ NO Normal [facility] Comment on above: Performed By: #### C MP, CMADM, BNP #### [facility] [address] [place] [address] Dr. Baldemar Rodriguez MCH (RBC) [Entitic mass] 30.4 pg Normal 26.7-34.0 [facility] Comment on above: Performed By: #### C MP, CMADM, BNP #### [facility] [address] [place] [address] Dr. Baldemar Rodriguez MCHC (RBC) [Mass/Vol] 32.1 g/dL Normal 29.9-35.2 [facility] Comment on above: Performed By: #### C MP, CMADM, BNP #### [facility] [address] [place] [address] Dr. Baldemar Rodriguez MCV (RBC) [Entitic vol] 94.5 fL Normal 81.0-99.0 [facility] Comment on above: Performed By: #### C MP, CMADM, BNP #### [facility] [address] [place] [address] Dr. Baldemar Rodriguez MONO # 0.5 103/ul Normal 0.3-0.8 [facility] Comment on above: Performed By: #### C MP, CMADM, BNP #### [facility] [address] [place] [address] Dr. Baldemar Rodriguez Monocytes/100 WBC (Bld) 8.0 % Normal 1.7-12.0 [facility] Comment on above: Performed By: #### C MP, CMADM, BNP #### [facility] [address] [place], [place] [id number] Dr. Baldemar Rodriguez NEUT # 3.7 103/ul Normal 1.4-6.5 [facility] Comment on above: Performed By: #### C JANIE GUNN, BNP #### [facility] [address] [place] [address] Dr. Baldemar Rodriguez Neutrophils/100 WBC (Bld) 61.4 % Normal 43.0-75.0 [facility] Comment on above: Performed By: #### C TOO GUNNDM, BNP #### [facility] [address] [place] [address] Dr. Baldemar Rodriguez Platelet mean volume (Bld) [Entitic vol] 9.4 fL Critically low 9.5-13.5 [facility] Comment on above: Performed By: #### C JANIE GUNN, BNP #### [facility] [address] [place] [address] Dr. Baldemar Rodriguez PLT 226 103/ul Normal 150-450 [facility] Comment on above: Performed By: #### C JANIE GUNN, BNP #### [facility] [address] [place] [address] Dr. Baldemar Rodriguez RBC 4.15 106/ul Critically low 4.20-5.40 [facility] Comment on above: Performed By: #### C TOO GUNNDM, BNP #### [facility] [address] [place] [address] Dr. Baldemar Rodriguez WBC 6.0 103/ul Normal 4.0-11.0 [facility] Comment on above: Performed By: #### C TOO GUNNDM, BNP #### [facility] [address] [place] [address] Dr. Baldemar Rodriguez [facility] SARS-CoV-2 (COVID-19) RNA BOLIVAR+probe Ql (Unsp spec) Not detected Normal NOT DETECTED [facility] Comment on above: Result Comment: When [...] for this test is supported by the Medical Reviewer of Health and Human Service's declaration that [...] longer be used). Performed By: #### C MP, CMADM, BNP #### [facility] [address] [place] [address] Dr. Baldemar Rodriguez D-DIMERon 03-22-2022 D-DIMER 0.75 mg/L FEU Critically high <=0.59 The [facility] Comment on above: Performed By: #### C MP, CMADM, BNP #### [facility] [address] [address] [address] Baldemar Rodriguez D-DIMER COMMENTS SEE BELOW Normal [facility] Comment on above: Result Comment: [...] By: #### C MP, CMADM, BNP #### [facility] [address] [place] [address] Dr. Baldemar Rodriguez ECHOCARDIO M/2D COMPLETEon 0 03-22-2022 ECHOCARDIO M/2D COMPLETE Patient: PENNY DIANE Exam Date: 03/22/2022 : 1950 Gender:F Ordering : SHAIKH Chu LOJA . Admission #: [id number] Family : DR TY THOMAS D.O. Order #: [id number] CLICK HERE TO VIEW EXAM ECHOCARDIOGRAM REPORT [...] Lofton M.D. on 03/22/2022 at 16:57 Normal [facility] PROF 14(COMP METB)on 023 Albumin [Mass/Vol] 3.4 g/dL Normal 3.4-5.0 [facility] Comment on above: Performed By: #### C MP, CMADM, BNP #### [facility] [address] [address] [address] Baldemar Rodriguez Albumin/Globulin [Mass ratio] 0.8 {ratio} Normal [facility] Comment on above: Performed By: #### C MP, CMADM, BNP #### [facility] [address] [place], [place] [address] Dr. Baldemar Rodriugez ALP [Catalytic activity/Vol] 124 U/L Critically high 46-116 [facility] Comment on above: Performed By: #### C MP, CMADM, BNP #### [facility] [address] [place] [address] Dr. Baldemar Rodriguez ALT [Catalytic activity/Vol] 30 U/L Normal 14-59 [facility] Comment on above: Performed By: #### C MP, CMADM, BNP #### [facility] [address] [place] [address] Dr. Baldemar Rodriguez Anion gap [Moles/Vol] 12.0 mmol/L Normal [facility] Comment on above: Performed By: #### C MP, CMADM, BNP #### [facility] [address] [place] [address] Dr. Baldemar Rodriguez AST [Catalytic activity/Vol] 30 U/L Normal 15-37 [facility] Comment on above: Performed By: #### C MP, CMADM, BNP #### [facility] [address] [place] [address] Dr. Baldemar Rodriguez Bilirubin [Mass/Vol] 0.9 mg/dL Normal 0.2-1.0 [facility] Comment on above: Performed By: #### C MP, CMADM, BNP #### [facility] [address] [place] [address] Dr. Baldemar Rodriguez Calcium [Mass/Vol] 9.4 mg/dL Normal 8.5-10.1 [facility] Comment on above: Performed By: #### C MP, CMADM, BNP #### [facility] [address] [place] [address] Dr. Baldemar Rodriguez Chloride [Moles/Vol] 105 mmol/L Normal 98-107 [facility] Comment on above: Performed By: #### C MP, CMADM, BNP #### [facility] [address] [place] [address] Dr. Baldemar Rodriguez CO2 [Moles/Vol] 30.8 mmol/L Normal 21.0-32.0 [facility] Comment on above: Performed By: #### C MP, CMADM, BNP #### [facility] [address] [address] [address] Baldemar Rodriguez Creatinine [Mass/Vol] 0.79 mg/dL Normal 0.55-1.02 [facility] Comment on above: Performed By: #### C MP, CMADM, BNP #### [facility] [address] [address] [address] Baldemar Rodriguez EGFR-AF CZECH >60 Normal >=60 [place] Comment on above: Performed By: #### C MP, CMADM, BNP #### [facility] [address] [address] [address] Baldemar Rodriguez EGFR-NON AF CZECH >60 Normal >=60 [facility] Comment on above: Performed By: #### C MP, CMADM, BNP #### [facility] [address] [place] [address] Dr. Baldemar Rodriguez Globulin (S) [Mass/Vol] 4.3 g/dL Normal [facility] Comment on above: Performed By: #### C MP, CMADM, BNP #### [facility] [address] [address] [address] Baldemar Rodriguez Glucose [Mass/Vol] 115 mg/dL Critically high 74-106 T [facility] Comment on above: Performed By: #### C MP, CMADM, BNP #### [facility] [address] [address] [address] Baldemar Rodriguez Potassium [Moles/Vol] 3.8 mmol/L Normal 3.5-5.1 [facility] Comment on above: Performed By: #### C MP, CMADM, BNP #### [facility] [address] [address] [address] Baldemar Rodriguez Protein [Mass/Vol] 7.7 g/dL Normal 6.4-8.2 [facility] Comment on above: Performed By: #### C MP, CMADM, BNP #### [facility] [address] [address] [address] Baldemar Rodriguez Sodium [Moles/Vol] 144 mmol/L Normal 136-145 [facility] Comment on above: Performed By: #### C MP, CMADM, BNP #### [facility] [address] [place], [place] [address] Dr. Baldemar Rodriguez Urea nitrogen [Mass/Vol] 11.0 mg/dL Normal 7.0-18.0 [facility] Comment on above: Performed By: #### C MP, CMADM, BNP #### [facility] [address] [place], [place] [address] Dr. Baldemar Rodriguez Urea nitrogen/Creatinine [Mass ratio] 13.9 mg/mg Normal [facility] Comment on above: Performed By: #### C MP, CMADM, BNP #### [facility] [address] [place], [place] [address] Dr. Baldemar Rodriguez XR CHEST 1 Von [...] by: ANNITA BRAN Date: 2022-03-22 12:45 Normal [facility] XR CHEST 2 Von 01-22-2022 XR CHEST [...] by: HALIE NICK Date: 2022-01-22 15:48 Normal [facility] A1C HEMOGLOBINon 11-08-2021 HbA1c (Bld) [Mass fraction] 5.6 % [facility] [employer] Other HbA1c (Bld) [Mass fraction]o n 11-08-2021 A[facility]C [facility] [employer] Other ECHOCARDIO M/2D COMPLETEon 0 08-15-2021 ECHOCARDIO M/2D COMPLETE Patient: PENNY DIANE Exam Date: 08/15/2021 : 1950 Gender:F Ordering : REGINO HERNADEZ Admission #: [id number] Family : DR TY THOMAS D.ORodriguez Order #: [id number] CLICK HERE TO VIEW EXAM ECHOCARDIOGRAM REPORT [...] Lofton M.D. on 08/15/2021 at 16:14 Normal [facility] BASIC METABOLIC PANELon 06-0 Calcium [Mass/Vol] 9.9 mg/dL Normal 8.6-10.3 [facility] Comment on above: Performed By: #### 0 0071 #### [facility] [address] [place] [address], [facility] Chloride [Moles/Vol] 105 mmol/L Normal 98-107 [facility] Comment on above: Performed By: #### 0 0071 #### [facility] [address] [place] [address], [facility] CO2 [Moles/Vol] 30 mmol/L Normal 21-31 [facility] Comment on above: Performed By: #### 0 [id number] #### [facility] [address] [place] [address], [facility] Creatinine [Mass/Vol] 1.25 mg/dL High 0.60-1.20 [facility] Comment on above: Performed By: #### 0 0071 #### [facility] [address] [place] [id number], [facility] eGFR- 51 ml/min/1.73sq m Abnormal >60 The [facility] Comment on above: Result Comment: Calc ulation may not be valid for patients over 70 years Performed By: #### 0 [id number] #### [facility] [address] [place] [address], [facility] eGFR- non- 42 ml/min/1.73sq m Abnormal >60 The [facility] Comment on above: Result Comment: Calc ulation may not be valid for patients over 70 years Performed By: #### 0 [id number] #### [facility] [address] [place] [address], [place] Glucose [Mass/Vol] 96 mg/dL Normal 70-100 [facility] Comment on above: Performed By: #### 0 0071 #### [facility] [address] [place] [address], [place] Potassium [Moles/Vol] 3.9 mmol/L Normal 3.5-5.[address] [facility] Comment on above: Performed By: #### 0 0071 #### [facility] [address] [place] [address], [place] Sodium [Moles/Vol] 143 mmol/L Normal 136-145 [facility] Comment on above: Performed By: #### 0 0071 #### [facility] [address] [place] [address], [place] Urea nitrogen [Mass/Vol] 25 mg/dL Normal 7-[address] [facility] Comment on above: Performed By: #### 0 0071 #### [facility] [address] [place] [address], [place] CBC COMPLETE BLOOD COUNTon 0 07-11-2021 Erythrocyte distribution width (RBC) [Ratio] 13.9 % Normal 11.5-15.[address] [facility] Comment on above: Performed By: #### 5 [id number] #### [facility] [address] Hematocrit (Bld) [Volume fraction] 41.6 % Normal 36.0-45.[address] [facility] Comment on above: Performed By: #### 5 [id number] #### [facility] [address] [facility] [place] [place] [address], [facility] Hemoglobin (Bld) [Mass/Vol] 13.5 g/dL Normal 12.0-15.[address] [facility] Comment on above: Performed By: #### 5 [id number] #### [facility] [address] [facility] [address], [facility] MCH (RBC) [Entitic mass] 31.3 pg Normal 27.0-33.[address] [facility] Comment on above: Performed By: #### 5 [id number] #### [facility] [address] [facility] [address] MCHC (RBC) [Mass/Vol] 32.5 g/dL Normal 32.0-35.[address] [facility] Comment on above: Performed By: #### 5 [id number] #### [facility] [address] [place] [address], [facility] MCV (RBC) [Entitic vol] 96.5 fL Normal 82.0-98.[address] [facility] Comment on above: Performed By: #### 5 [id number] #### [facility] [address] [facility]. [address] Nucleated RBC/100 WBC (Bld) [Ratio] 0 % Normal 0-[address] [facility] Comment on above: Performed By: #### 5 [id number] #### [facility] [address] [facility] [address], [facility] PLAT CNT 219 10*3/uL Normal 150-400 The [facility] Comment on above: Performed By: #### 5 [id number] #### [facility] [address] [facility] [place], [place] [address] RBC (Bld) [#/Vol] 4.31 10*6/uL Normal 3.80-5.00 The [facility] Comment on above: Performed By: #### 5 0608 #### [facility] [address] WBC (Bld) [#/Vol] 5.29 10*3/uL Normal 4.00-10.60 [facility] Comment on above: Performed By: #### 5 [id number] #### [facility] [address] Cardiovascular Lab Reporton 07-11-2021 Cardiovascular Lab Report [facility] Patient Name: Penny Diane [facility] MR #: [id number] Physician: Regino Hernadez MD Department of Service Date: 07/11/2021 Medicine Birthdate: 1950 Division of Room #: CC Cardiology Adult Cardiovascular Services [place] [address] Cardiovascular Laboratory Report ATRIAL FIBRILLATION ABLATION PROCEDURE [...] I decided to interrogate the pulmonary veins. 51206I Heparin bolus was given followed by additional [...] and (more content not included)... Normal The [facility] Covid-19 PCR ([facility])on 06-12 SARS-CoV-2 (COVID-19) RNA BOLIVAR+probe Ql (Unsp spec) Not detected Normal NOT DETECTED [facility] Comment on above: Result Comment: This test is not yet approved or cleared by the [place] FDA. When there are no FDA-approved or cleared tests available, and other criteria are met, FDA can make tests available under an emergency access mechanism called an Emergency Use Authorization (EUA). The EUA for this test is supported by the Medical Reviewer of Health and Human Service's (HHS's) declaration [...] consistent with SARS-CoV-2. Performed By: #### C VDTB #### [facility] [address] [place] [address] Dr. Baldemar Rodriguez HEMOGRAM AND PLATELon 2021 Hematocrit (Bld) [Volume fraction] 40.9 % Normal 36.0-48.0 [facility] Comment on above: Performed By: #### C MP, CMADM, BNP #### [facility] [address] [place] [address] Dr. Baldemar Rodriguez Hemoglobin (Bld) [Mass/Vol] 12.9 g/dL Normal 12.0-16.0 [facility] Comment on above: Performed By: #### C MP, CMADM, BNP #### [facility] [address] [place] [address] Dr. Baldemar Rodriguez MCH (RBC) [Entitic mass] 30.9 pg Normal 26.7-34.0 [facility] Comment on above: Performed By: #### C MP, CMADM, BNP #### [facility] [address] [place] [address] Dr. Baldemar Rodriguez MCHC (RBC) [Mass/Vol] 31.5 g/dL Normal 29.9-35.2 [facility] Comment on above: Performed By: #### C MP, CMADM, BNP #### [facility] [address] [place] [address] Dr. Baldemar Rodriguez MCV (RBC) [Entitic vol] 98.1 fL Normal 81.0-99.0 [facility] Comment on above: Performed By: #### C MP, CMADM, BNP #### [facility] [address] [place] [address] Dr. Baldemar Rodriguez PLT 258 103/ul Normal 150-450 [facility] Comment on above: Performed By: #### C MP, CMADM, BNP #### [facility] [address] [place] [place] [address] Dr. Baldemar Rodriguez RBC 4.17 106/ul Critically low 4.20-5.40 [facility] Comment on above: Performed By: #### C MP, CMADM, BNP #### [facility] [address] [place] [address] Dr. Baldemar Rodriguez WBC 5.0 103/ul Normal 4.0-11.0 [facility] Comment on above: Performed By: #### C MP, CMADM, BNP #### [facility] [address] [address] [address] Baldemar Rodriguez BASIC METABOLIC PANELon 04-0 Calcium [Mass/Vol] 8.0 mg/dL Low 8.6-10.3 [facility] Comment on above: Order Comment: No: D o not add to previous draw Performed By: #### 0 0071 #### [facility] [address] [place] [address], [place] Chloride [Moles/Vol] 105 mmol/L Normal 98-[address] [facility] Comment on above: Order Comment: No: D o not add to previous draw Performed By: #### 0 0071 #### [facility] [address] [place] [address], [place] CO2 [Moles/Vol] 26 mmol/L Normal 21-31 [facility] Comment on above: Order Comment: No: D o not add to previous draw Performed By: #### 0 0071 #### [facility] [address] [place] [address], [place] Creatinine [Mass/Vol] 0.77 mg/dL Normal 0.60-1.[address] [facility] Comment on above: Order Comment: No: D o not add to previous draw Performed By: #### 0 0071 #### [facility] [address] [place] [address], [place] GFR/1.73 sq M.predicted among blacks MDRD (S/P/Bld) [Vol rate/Area] mL/min/{1.73_m2} Normal >[address] [facility] Comment on above: Order Comment: No: D o not add to previous draw Result Comment: Calc ulation may not be valid for patients over 70 years Performed By: #### 0 0071 #### [facility] [address] [place] [address], [place] GFR/1.73 sq M.predicted among non-blacks MDRD (S/P/Bld) [Vol rate/Area] mL/min/{1.73_m2} Normal >[address] [facility] Comment on above: Order Comment: No: D o not add to previous draw Result Comment: Calc ulation may not be valid for patients over 70 years Performed By: #### 0 0071 #### [facility] [address] [place] [address], [facility] Glucose [Mass/Vol] 89 mg/dL Normal 70-100 [facility] Comment on above: Order Comment: No: D o not add to previous draw Performed By: #### 0 0071 #### [facility] [address] [place] [address], [facility] Potassium [Moles/Vol] 2.8 mmol/L Low 3.5-5.[address] [facility] Comment on above: Order Comment: No: D o not add to previous draw Performed By: #### 0 0071 #### [facility] [address] [place] [address], [facility] Sodium [Moles/Vol] 140 mmol/L Normal 136-145 [facility] Comment on above: Order Comment: No: D o not add to previous draw Performed By: #### 0 0071 #### [facility] [address] [place] [address], [facility] Urea nitrogen [Mass/Vol] 11 mg/dL Normal 7-[address] [facility] Comment on above: Order Comment: No: D o not add to previous draw Performed By: #### 0 0071 #### [facility] [address] [place] [address], [place] CBC W/DIFFon 05-18-2021 ABS IMM GRANS 0.0 10*3/uL Normal 0.0-0.2 [facility] Comment on above: Order Comment: No: D o not add to previous draw Performed By: #### 5 0103 #### [facility] [address] [place] [address], [place] ABS NEUTROPHILS 2.6 10*3/uL Normal 1.6-7.6 [facility] Comment on above: Order Comment: No: D o not add to previous draw Performed By: #### 5 0103 #### [facility] [address] [place] [address], [facility] Basophils (Bld) [#/Vol] 0.0 10*3/uL Normal 0.0-0.[address] [facility] Comment on above: Order Comment: No: D o not add to previous draw Performed By: #### 5 0103 #### [facility] [address] [place] [id number], [facility] Basophils/100 WBC (Bld) 0.6 % Normal 0.0-1.[address] [facility] Comment on above: Order Comment: No: D o not add to previous draw Performed By: #### 5 0103 #### [facility] [address] [place] [id number], [facility] Eosinophils (Bld) [#/Vol] 0.1 10*3/uL Normal 0.0-0.[address] [facility] Comment on above: Order Comment: No: D o not add to previous draw Performed By: #### 5 0103 #### [facility] [address] [place] [id number], [facility] Eosinophils/100 WBC (Bld) 2.9 % Normal 0.0-6.[address] [facility] Comment on above: Order Comment: No: D o not add to previous draw Performed By: #### 5 0103 #### [facility] [address] [place] [id number], [place] Erythrocyte distribution width (RBC) [Ratio] 12.9 % Normal 11.5-15.[address] [facility] Comment on above: Order Comment: No: D o not add to previous draw Performed By: #### 5 0103 #### [facility] [address] [place] [id number], [facility] Hematocrit (Bld) [Volume fraction] 33.0 % Low 36.0-45.[address] [facility] Comment on above: Order Comment: No: D o not add to previous draw Performed By: #### 5 0103 #### [facility] [address] [place] [address], [facility] Hemoglobin (Bld) [Mass/Vol] 10.7 g/dL Low 12.0-15.[address] [facility] Comment on above: Order Comment: No: D o not add to previous draw Performed By: #### 5 0103 #### [facility] [address] [place] [id number], [facility] IMMATURE GRANS 0.2 % Normal 0.0-1.0 [facility] Comment on above: Order Comment: No: D o not add to previous draw Performed By: #### 5 0103 #### [facility] [address] [place] [id number], [facility] Lymphocytes (Bld) [#/Vol] 1.5 10*3/uL Normal 1.2-4.[address] [facility] Comment on above: Order Comment: No: D o not add to previous draw Performed By: #### 5 0103 #### [facility] [address] [place] [id number], [facility] Lymphocytes/100 WBC (Bld) 31.0 % Normal 20.0-45.[address] [facility] Comment on above: Order Comment: No: D o not add to previous draw Performed By: #### 5 0103 #### [facility] [address] [place] [id number], [facility] MCH (RBC) [Entitic mass] 32.0 pg Normal 27.0-33.[address] [facility] Comment on above: Order Comment: No: D o not add to previous draw Performed By: #### 5 0103 #### [facility] [address] [place] [id number], [facility] MCHC (RBC) [Mass/Vol] 32.4 g/dL Normal 32.0-35.[address] [facility] Comment on above: Order Comment: No: D o not add to previous draw Performed By: #### 5 0103 #### [facility] [address] [place] [address], [facility] MCV (RBC) [Entitic vol] 98.8 fL High 82.0-98.[address] [facility] Comment on above: Order Comment: No: D o not add to previous draw Performed By: #### 5 0103 #### [facility] [address] [place] [address], [facility] Monocytes (Bld) [#/Vol] 0.6 10*3/uL Normal 0.1-1.[address] [facility] Comment on above: Order Comment: No: D o not add to previous draw Performed By: #### 5 0103 #### [facility] [address] [facility] [address] MONOS 11.9 % Normal 5.0-12.[address] [facility] Comment on above: Order Comment: No: D o not add to previous draw Performed By: #### 5 0103 #### [facility] [address] [facility] [place] [address], [facility] Neutrophils/100 WBC (Bld) 53.4 % Normal 40.0-72.[address] [facility] Comment on above: Order Comment: No: D o not add to previous draw Performed By: #### 5 0103 #### [facility] [address] [facility] [place] [place] [address], [facility] Nucleated RBC/100 WBC (Bld) [Ratio] 0 % Normal 0-[address] [facility] Comment on above: Order Comment: No: D o not add to previous draw Performed By: #### 5 0103 #### [facility] [address] [place] [address], [facility] PLAT CNT 179 10*3/uL Normal 150-400 [facility] Comment on above: Order Comment: No: D o not add to previous draw Performed By: #### 5 0103 #### [facility] [address] [place] [address], [facility] RBC (Bld) [#/Vol] 3.34 10*6/uL Low 3.80-5.00 [facility] Comment on above: Order Comment: No: D o not add to previous draw Performed By: #### 5 0103 #### [facility] [address] [place] [address], [facility] WBC (Bld) [#/Vol] 4.87 10*3/uL Normal 4.00-10.60 [facility] Comment on above: Order Comment: No: D o not add to previous draw Performed By: #### 5 0103 #### [facility] [address] POTASSIUM BLOODon 05-18-2021 Potassium [Moles/Vol] 3.7 mmol/L Normal 3.5-5.[address] [facility] Comment on above: Order Comment: No: D o not add to previous draw Performed By: #### 4 1406 #### [facility] [address] Cardiovascular Lab Reporton 05-17-2021 Cardiovascular Lab Report [facility] MR #: [id number] Department of Physician: Regino Hernadez MD Medicine Service Date: 05/17/2021 Division of Birthdate: 1950 Cardiology Room #: Adult Cardiovascular Services [facility] [address] [address] Cardiovascular Laboratory Report ATRIAL FIBRILLATION ABLATION PROCEDURE [...] 8Fx4 ThermoCool SF Bi-Directional over SL1/ Vizigo, SL1:Pentaray, ICE catheter. 8Fx1 CS Catheter (EZ Steer) [...] EZ clot. Esophagus was mapped using the VerdezyneUND 3D mapping software and noted to be [...] was (more content not included)... Normal [facility] POC GLUCOSE LABon 05-17-2021 Glucose [Mass/Vol] 92 mg/dL Normal 70-100 [facility] Comment on above: Performed By: #### 8 [id number] #### [facility] [address] [place] [address], [facility] BASIC METABOLIC PANELon 04-12 Calcium [Mass/Vol] 8.7 mg/dL Normal 8.6-10.3 [facility] Comment on above: Performed By: #### 0 0071 #### [facility] [address] [place] [address], [place] Chloride [Moles/Vol] 103 mmol/L Normal 98-107 [facility] Comment on above: Performed By: #### 0 0071 #### [facility] [address] [place] [address], [place] CO2 [Moles/Vol] 26 mmol/L Normal 21-31 [facility] Comment on above: Performed By: #### 0 0071 #### [facility] [address] [place] [address], [place] Creatinine [Mass/Vol] 0.86 mg/dL Normal 0.60-1.20 [facility] Comment on above: Performed By: #### 0 0071 #### [facility] [address] [place] [address], [place] GFR/1.73 sq M.predicted among blacks MDRD (S/P/Bld) [Vol rate/Area] mL/min/{1.73_m2} Normal >[address] [facility] Comment on above: Result Comment: Calc ulation may not be valid for patients over 70 years Performed By: #### 0 0071 #### [facility] [address] [place] [address], [place] GFR/1.73 sq M.predicted among non-blacks MDRD (S/P/Bld) [Vol rate/Area] mL/min/{1.73_m2} Normal >60 [facility] Comment on above: Result Comment: Calc ulation may not be valid for patients over 70 years Performed By: #### 0 0071 #### [facility] [address] [place] [address], [place] Glucose [Mass/Vol] 84 mg/dL Normal 70-100 [facility] Comment on above: Performed By: #### 0 0071 #### [facility] [address] [place] [address], [place] Potassium [Moles/Vol] 4.0 mmol/L Normal 3.5-5.[address] [facility] Comment on above: Performed By: #### 0 0071 #### [facility] [address] [facility] [place] [place] [address], [facility] Sodium [Moles/Vol] 137 mmol/L Normal 136-145 [facility] Comment on above: Performed By: #### 0 0071 #### [facility] [address] [place] [address], [facility] Urea nitrogen [Mass/Vol] 19 mg/dL Normal 7-[address] [facility] Comment on above: Performed By: #### 0 0071 #### [facility] [address] [facility] [place] [place] [address], [facility] CTA CHESTon 05-10-2021 CTA CHE[address] [facility] Department of Radiology [address] [place] [address] [id number] Patient Name: PENNY DIANE : 1950 Sex: F Age: Race: White Pt. Location: Patient Status: D Ordered Date: 04/02/2021 2:15:00 PM Completed Date: 05/10/2021 11:34 AM Requesting Provider: REGINO HERNADEZ Attending Provider: REGINO HERNADEZ Report Copy To: TY THOMAS Signs & Symptoms: I48.0 Paroxysmal atrial fibrillation I10 History: Dasia labs done 04-17-21 outside faculty they are [...] dictation.} Electronically signed: Charlie Prince. Transcribed by: [email or web address], User Resident: Electronically Signed by: CHARLIE PRINEC @ 05/14/2021 11:31 AM Normal [facility] Comment on above: Order Comment: , abl ation 05/17/21 , ablation 05/17/21 , , , Ordering Provider - REGINO HERNADEZ MD , HEMATOCRITon 05-10-2021 Hematocrit (Bld) [Volume fraction] 36.0 % Normal 36.0-45.0 [facility] Comment on above: Performed By: #### 8 [id number] #### [facility] [address] [facility]. [address] HEMOGLOBINon 05-10-2021 Hemoglobin (Bld) [Mass/Vol] 12.2 g/dL Normal 12.0-15.[address] [facility] Comment on above: Performed By: #### 8 [id number] #### [facility] [address] [facility]. [address] WBC, WHITE BLOOD CELL COUNTo n 05-10-2021 WBC (Bld) [#/Vol] 4.81 10*3/uL Normal 4.00-10.60 [facility] Comment on above: Performed By: #### 8 [id number] #### [facility] [address] [facility]. [address] XR WRIST RIGHT (MIN 3 VIEWS) on [...] Gorge Key MD 06/05/18 Final result Normal [facility] Vital Signs Date Time Vital Sign Value Performing Clinician Facility 08-28-2023 10:32-0400 Body height 165.1 cm [facility] 08-28-2023 10:32-0400 Body mass index (BMI) [Ratio] 29.6 kg/m2 [facility] 08-28-2023 10:32-0400 Body weight 80.73 kg [facility] 08-28-2023 10:32-0400 Diastolic blood pressure 70 mm[Hg] [facility] 08-28-2023 10:32-0400 Heart rate 70 /min [facility] 08-28-2023 10:32-0400 SaO2% (BldA) [Mass fraction] 98 % [facility] 08-28-2023 10:32-0400 Systolic blood pressure 118 mm[Hg] [facility] 08-26-2023 13:33-0400 Body height 165.1 cm [facility] 08-26-2023 13:33-0400 Body mass index (BMI) [Ratio] 29.9 kg/m2 [facility] 08-26-2023 13:33-0400 Body weight 81.7 kg [facility] 08-26-2023 13:33-0400 Diastolic blood pressure 89 mm[Hg] [facility] 08-26-2023 13:33-0400 Heart rate 70 /min [facility] 08-26-2023 13:33-0400 Respiratory rate 18 /min [facility] 08-26-2023 13:33-0400 SaO2% (BldA) [Mass fraction] 98 % [facility] 08-26-2023 13:33-0400 Systolic blood pressure 140 mm[Hg] [facility] 03-13-2023 14:00-0500 Body height 165.1 cm Joaquín Maria Other [facility] Other 03-13-2023 14:00-0500 Body mass index (BMI) [Ratio] 29.15 kg/m2 Joaquín Maria Other [facility] Other 03-13-2023 14:00-0500 Body weight 79.47 kg Joaquín Maria Other [facility] Other 03-13-2023 14:00-0500 Diastolic blood pressure 77 mm[Hg] Joaquín Maria Other [facility] Other 03-13-2023 14:00-0500 Respiratory rate 18 /min Joaquín Maria Other [facility] Other 03-13-2023 14:00-0500 SaO2% (BldA) [Mass fraction] 99 % Joaquín Maria Other [facility] Other 03-13-2023 14:00-0500 Systolic blood pressure 122 mm[Hg] Joaquín Maria Other [facility] Other 03-04-2023 14:00-0500 Body height 165.1 cm Med Briggs Other [facility] Other 03-04-2023 14:00-0500 Body mass index (BMI) [Ratio] 29.04 kg/m2 [facility] Brig[facility] Other [facility] Other 03-04-2023 14:00-0500 Body weight 79.15 kg Med Briggs Other [facility] Other 03-04-2023 14:00-0500 Diastolic blood pressure 70 mm[Hg] Med Briggs Other [facility] Other 03-04-2023 14:00-0500 SaO2% (BldA) [Mass fraction] 95 % [facility] Briggs Other [facility] Other 03-04-2023 14:00-0500 Systolic blood pressure 111 mm[Hg] Med Sundeep Other [facility] Other 12-04-2022 13:15-0400 Body height 165.1 cm Viviana Williamson Other [facility] Other 11-21-2022 13:00-0400 Body height 165.1 cm Joaquín Maria Other [facility] Other 11-21-2022 13:00-0400 Body mass index (BMI) [Ratio] 28.19 kg/m2 Joaquín Maria Other [facility] Other 11-21-2022 13:00-0400 Body weight 76.84 kg Joaquín Maria Other [facility] Other 11-21-2022 13:00-0400 Diastolic blood pressure 73 mm[Hg] Joaquín Maria Other [facility] Other 11-21-2022 13:00-0400 Respiratory rate 18 /min Joaquín Maria Other [facility] Other 11-21-2022 13:00-0400 SaO2% (BldA) [Mass fraction] 98 % Joaquín Maria Other [facility] Other 11-21-2022 13:00-0400 Systolic blood pressure 120 mm[Hg] Joaquín Maria Other [facility] Other 09-17-2022 13:45-0400 Body height 165.1 cm Joaquín Maria Other Not Available 09-17-2022 13:45-0400 Body mass index (BMI) [Ratio] 28.84 kg/m2 Joaquínnick Crewsdiff Other Not Available 09-17-2022 13:45-0400 Body weight 78.61 kg Joaquín Maria Other Not Available 09-17-2022 13:45-0400 Diastolic blood pressure 74 mm[Hg] Jaoquín Crewsdiff Other Not Available 09-17-2022 13:45-0400 Respiratory rate 18 /min Joaquín Joyaff Other Not Available 09-17-2022 13:45-0400 SaO2% (BldA) [Mass fraction] 98 % Joaquín Maria Other Not Available 09-17-2022 13:45-0400 Systolic blood pressure 109 mm[Hg] Joaquín Crewsdiff Other Not Available 08-06-2022 13:00-0400 Body height 165.1 cm Joaquín Maria Other [facility] Other 08-06-2022 13:00-0400 Body mass index (BMI) [Ratio] 28.27 kg/m2 Joaquín Maria Other [facility] Other 08-06-2022 13:00-0400 Body weight 77.07 kg Joaquínnick Maria Other [facility] Other 08-06-2022 13:00-0400 Diastolic blood pressure 83 mm[Hg] Joaquínnick Crewsdiff Other [facility] Other 08-06-2022 13:00-0400 Respiratory rate 18 /min Joaquín Maria Other [facility] Other 08-06-2022 13:00-0400 SaO2% (BldA) [Mass fraction] 94 % Joaquín Maria Other [facility] Other 08-06-2022 13:00-0400 Systolic blood pressure 129 mm[Hg] Joaquín Maria Other [facility] Other 04-18-2022 13:15-0500 Body height 165.1 cm Joaquín Maria Other [facility] Other 04-18-2022 13:15-0500 Body mass index (BMI) [Ratio] 28.6 kg/m2 Joaquín Maria Other [facility] Other 04-18-2022 13:15-0500 Body weight 77.97 kg Joaquín Maria Other [facility] Other 04-18-2022 13:15-0500 Diastolic blood pressure 74 mm[Hg] Joaquín Maria Other [facility] Other 04-18-2022 13:15-0500 Respiratory rate 18 /min Joaquín Maria Other [facility] Other 04-18-2022 13:15-0500 SaO2% (BldA) [Mass fraction] 99 % Joaquín Maria Other [facility] Other 04-18-2022 13:15-0500 Systolic blood pressure 106 mm[Hg] Joaquín Crewsdiff Other [facility] Other 01-10-2022 14:45-0500 Body height 165.1 cm Viivana Jefferscyrus Other [facility] Other 12-04-2021 14:30-0400 Body height 165.1 cm Joaquín Maria Other [facility] Other 12-04-2021 14:30-0400 Body mass index (BMI) [Ratio] 27.34 kg/m2 Joaquín Maria Other [facility] Other 12-04-2021 14:30-0400 Body weight 74.53 kg Joaquín Crow Other [facility] Other 12-04-2021 14:30-0400 Diastolic blood pressure 72 mm[Hg] Joaquín Maria Other [facility] Other 12-04-2021 14:30-0400 Respiratory rate 18 /min Joaquín Maria Other [facility] Other 12-04-2021 14:30-0400 SaO2% (BldA) [Mass fraction] 99 % Joaquín Maria Other [facility] Other 12-04-2021 14:30-0400 Systolic blood pressure 112 mm[Hg] Joaquín Maria Other [facility] Other 11-08-2021 14:45-0400 Body height 165.1 cm Joaquín Maria Other [facility] Other 11-08-2021 14:45-0400 Body mass index (BMI) [Ratio] 27.47 kg/m2 Joaquín Maria Other [facility] Other 11-08-2021 14:45-0400 Body weight 74.89 kg Joaquín Maria Other [facility] Other 11-08-2021 14:45-0400 Diastolic blood pressure 112 mm[Hg] Joaquín Crewsdiff Other [facility] Other 11-08-2021 14:45-0400 Respiratory rate 18 /min Joaquín Crewsdiff Other [facility] Other 11-08-2021 14:45-0400 SaO2% (BldA) [Mass fraction] 99 % Joaquín Crewsdiff Other [facility] Other 11-08-2021 14:45-0400 Systolic blood pressure 160 mm[Hg] Joaquín Crewsdiff Other [facility] Other 09-27-2021 15:45-0400 Body height 165.1 cm Joaquín Maria Other [facility] Other 09-27-2021 15:45-0400 Body mass index (BMI) [Ratio] 28.6 kg/m2 Joaquín Maria Other [facility] Other 09-27-2021 15:45-0400 Body weight 77.96 kg Joaquín Crewsdiff Other [facility] Other 09-27-2021 15:45-0400 Diastolic blood pressure 71 mm[Hg] Joaquínnick Crewsdiff Other [facility] Other 09-27-2021 15:45-0400 Respiratory rate 18 /min Joaquínnick Crewsdiff Other [facility] Other 09-27-2021 15:45-0400 SaO2% (BldA) [Mass fraction] 100 % Joaquín Crow Other [facility] Other 09-27-2021 15:45-0400 Systolic blood pressure 123 mm[Hg] Joaquín Maria Other [facility] Other 08-16-2021 15:00-0400 Body height 165.1 cm Viviana Fitt Other [facility] Other 08-16-2021 15:00-0400 Body mass index (BMI) [Ratio] 30.13 kg/m2 Viviana Fitt Other [facility] Other 08-16-2021 15:00-0400 Body weight 82.15 kg Viviana Fitt Other [facility] Other 06-26-2021 15:00-0400 Body height 165.1 cm Viviana Fitt Other [facility] Other 06-26-2021 15:00-0400 Body mass index (BMI) [Ratio] 30.85 kg/m2 Viviana Fitt Other [facility] Other 06-26-2021 15:00-0400 Body weight 84.1 kg Viviana Fitt Other [facility] Other 05-15-2021 16:45-0400 Body height 165.1 cm Joaquín Maria Other [facility] Other 05-15-2021 16:45-0400 Body mass index (BMI) [Ratio] 32.45 kg/m2 Joaquín Maria Other [facility] Other 05-15-2021 16:45-0400 Body weight 88.45 kg Joaquín Maria Other [facility] Other 05-15-2021 16:45-0400 Diastolic blood pressure 65 mm[Hg] Joaquín Maria Other [facility] Other 05-15-2021 16:45-0400 Respiratory rate 16 /min Joaquín Crewsdiff Other [facility] Other 05-15-2021 16:45-0400 SaO2% (BldA) [Mass fraction] 98 % Joaquín Crewsdiff Other [facility] Other 05-15-2021 16:45-0400 Systolic blood pressure 113 mm[Hg] Joaquín Maria Other [facility] Other 04-19-2021 14:45-0500 Body height 165.1 cm Viviana Fitt Other [facility] Other 04-19-2021 14:45-0500 Body mass index (BMI) [Ratio] 32.5 kg/m2 Viviana Fitt Other [facility] Other 04-19-2021 14:45-0500 Body weight 88.59 kg Viviana Fitt Other [facility] Other 04-09-2021 16:45-0500 Body height 165.1 cm Joaquín Crow Other [facility] Other 04-09-2021 16:45-0500 Body mass index (BMI) [Ratio] 32.53 kg/m2 Joaquín Crewsdiff Other [facility] Other 04-09-2021 16:45-0500 Body weight 88.68 kg Joaquín Crewsdiff Other [facility] Other 04-09-2021 16:45-0500 Diastolic blood pressure 68 mm[Hg] Joaquín Crewsdiff Other [facility] Other 04-09-2021 16:45-0500 Respiratory rate 18 /min Joaquín Crewsdiff Other [facility] Other 04-09-2021 16:45-0500 SaO2% (BldA) [Mass fraction] 100 % Joaquín Crewsdiff Other [facility] Other 04-09-2021 16:45-0500 Systolic blood pressure 115 mm[Hg] Joaquín Crewsdiff Other [facility] Other Encounters Encounter Date Encounter Type Care Provider Facility Start: 08-28-2023 End: 08-28-2023 ambulatory [facility] Work Phone: Start: 08-28-2023 End: 08-28-2023 Patient encounter procedure [facility] Work Phone: Start: 08-26-2023 End: 08-26-2023 ambulatory [facility] Work Phone: Start: 08-26-2023 End: 08-26-2023 [facility] [facility] Work Phone: Start: 04-22-2023 End: 04-22-2023 ambulatory [facility] Start: 04-09-2023 End: 04-09-2023 ambulatory ELIAS DOMINGO Not Available Start: 03-25-2023 End: 03-25-2023 ambulatory JIMI THOMPSON [facility] Start: 03-13-2023 Follow-up encounter Joaquín [facility] Start: 03-13-2023 End: 03-13-2023 ambulatory Joaquín Maria [facility] Other Start: 03-05-2023 Telephone encounter Elias Domingo DO Work Phone: [facility] Start: 03-04-2023 End: 03-04-2023 Patient encounter procedure DO Ty House Work Phone: [facility] Work Phone: Start: 03-04-2023 End: 03-04-2023 ambulatory DO Ty Thomas Work Phone: [facility] Work Phone: Start: 03-04-2023 Office outpatient ne w 60 minutes [facility] Start: 01-09-2023 Registered Recurring DO Jr s House Work Phone: [facility] Work Phone: Start: 01-09-2023 End: 01-09-2023 Patient encounter procedure DO Ty Thomas Work Phone: [facility] Work Phone: Start: 12-04-2022 (Game Trapper) Game Trapper Viviana [facility] Start: 12-04-2022 End: 12-04-2022 ambulatory Viviana Williamson Other [facility] Other Start: 11-21-2022 End: 11-21-2022 ambulatory Joaquín Maria Other [facility] Other Start: 11-21-2022 Follow-up encounter Joaquín [facility] Start: 11-19-2022 End: 11-19-2022 ambulatory Joaquín Maria Other [facility] Other Start: 11-19-2022 Telephone encounter Joaquín [facility] Start: 09-17-2022 End: 09-17-2022 ambulatory Joaquín Maria Other Not Available Start: 09-17-2022 Follow-up encounter Joaquín [facility] Start: 08-21-2022 End: 08-21-2022 ambulatory [facility] Start: 08-06-2022 End: 08-06-2022 ambulatory Joaquínnick Crewsdiff Other [facility] Other Start: 08-06-2022 Follow-up encounter Joaquín [facility] Start: 06-19-2022 End: 06-20-2022 ambulatory JIMI [facility] Facility: Start: 06-11-2022 End: 06-11-2022 ambulatory [facility] Start: 04-24-2022 End: 04-24-2022 ambulatory Viviana Williamson Other [facility] Other Start: 04-24-2022 Telephone encounter Viviana cuellar [facility] Start: 04-18-2022 End: 04-18-2022 ambulatory Joaquín Crow Other [facility] Other Start: 04-18-2022 Follow-up encounter Joaquín [facility] Start: 04-11-2022 (Game Trapper) Game Trapper Viviana [facility] Start: 04-11-2022 End: 04-11-2022 ambulatory Viviana Williamson Other [facility] Other Start: 04-10-2022 End: 04-11-[address] TY THOMAS Facility:[facility] Start: 03-22-2022 End: 03-26-2022 Evaluation and management of inpatient DR TY THOMAS Facility:[facility] Start: 01-22-2022 End: 01-23-2022 ambulatory REGINO HERNADEZ Facility:[facility] Start: 01-10-2022 End: 01-10-2022 ambulatory Viviana Williamson Other [facility] Other Start: 01-10-2022 IBT for Obesity subQ 15 min (Max charge 2 units) Viviana Williamson [facility] Start: 12-04-2021 End: 12-04-2021 ambulatory Joaquín Maria Other [facility] Other Start: 12-04-2021 Follow-up encounter Joaquín [facility] Start: 11-08-2021 End: 11-08-2021 ambulatory Joaquín Crow Other [facility] Other Start: 11-08-2021 Follow-up encounter Joaquín Maria Chente [facility]my [facility] Start: 10-09-2021 End: 10-10-2021 ambulatory JACI BUCHANANCKER Facility:[facility] Start: 09-27-2021 End: 09-27-2021 ambulatory Joqauín Maria Other [facility] Other Start: 09-27-2021 Follow-up encounter Joaquín Maria [facility]te [facility] Start: 09-05-2021 End: 09-06-2021 ambulatory JACI MARSH Facility:[facility] Start: 08-24-2021 ambulatory ELANA MEERA Facility:[facility] 1 Start: 08-16-2021 ([facility] FU) [facility] F/ U Registerd Game Trapper Viviana Williamson [facility] Start: 08-16-2021 End: 08-16-2021 ambulatory Viviana Williamson Other [facility] Other Start: 08-15-2021 End: 08-16-2021 ambulatory REGINO HERNADEZ Facility: Start: 07-16-2021 Encounter for other preprocedural examination JACI MARSH [facility] Start: 07-16-2021 [facility] Start: 07-11-2021 End: 07-12-2021 ambulatory REGINO HERNADEZ Facility:[facility] Start: 07-09-2021 End: 07-10-2021 ambulatory JACI MARSH Facility: Start: 07-09-2021 End: 07-10-2021 Encounter for other preprocedural examination JACI MARSH Facility: Start: 07-04-2021 End: 07-04-2021 ambulatory Joaquín Maria Other [facility] Other Start: 07-04-2021 Telephone encounter Joaquín [facility] Start: 06-26-2021 ([facility] FU) [facility] F/ U Registerd Game Trapper Viviana Williamson [facility] Start: 06-26-2021 End: 06-26-2021 ambulatory Viviana Williamson Other [facility] Other Start: 06-26-2021 Telephone encounter Joaquín [facility] Start: 06-04-2021 End: 06-04-2021 ambulatory Viviana Williamson Other [facility] Other Start: 06-04-2021 Telephone encounter Viviana [facility] Start: 05-28-2021 End: 05-28-2021 ambulatory Joaquín Maria Other [facility] Other Start: 05-28-2021 Telephone encounter Joaquín christianson [facility] Start: 05-24-2021 End: 05-24-2021 ambulatory Vivianakristine Williamson Other [facility] Other Start: 05-24-2021 Telephone encounter Viviana Zeyadcyrus [facility] Start: 05-17-2021 End: 05-18-2021 ambulatory TY [place] Facility:[facility] Start: 05-15-2021 End: 05-15-2021 ambulatory Joaquín Maria Other [facility] Other Start: 05-15-2021 Follow-up encounter Joaquín Maria Chente [facility] Start: 05-09-2021 End: 05-09-2021 ambulatory Joaquín Joyaff Other [facility] Other Start: 05-09-2021 Telephone encounter Joaquín Maria [facility]te [facility] Start: [facility] Init ial Provider Viviana Williamson [facility] Start: 04-19-2021 End: 04-19-2021 ambulatory Viviana Zeyadcyrus Other [facility] Other Start: 04-09-2021 End: 04-09-2021 ambulatory Joaquín Maria Other [facility] Other Start: 04-09-2021 Follow-up encounter Joaquín Maria Chente [facility] Start: 06-05-2018 End: 06-08-2018 Patient encounter procedure SR [facility] Procedures Date Procedure Procedure Detail Performing Clinician Start: 08-21-2022 Follow-up visit Follow-up JIMI LUGO Start: 06-05-2018 Radex wrist complete minimum 3 views SR HOUSE Plan of Treatment Date Care Activity Detail Author Start: 04-09-2023 End: 04-09-2023 Patient encounter procedure 04/09/2023 3:00 PM EST Office Visit [facility] [address] [place] [id number] Elias Domingo, DO [address] [place] [address] [facility] Start: 03-24-2023 Pneumococcal Vaccine: 65+ Years (2 - PCV) Pneumococcal Vaccine: 65+ Years (2 - PCV) [facility] Start: 10-11-2022 Influenza vaccination Influenza Vaccine (#1) [facility] Start: 1989 Screening for malignant neoplasm of breast Mammogram [facility] Start: 1949 Screening for malignant neoplasm of colon [facility] Comprehensive metabo lic 2000 panel - Serum or Plasma [facility] DXA Skeletal system. axial Views for bone density [facility] MG Breast - bilatera l Screening [facility] Immunizations Immunization Date Immunization Notes Care Provider Fa cility 03-24-2022 pneumococcal polysaccharide vaccine, 23 valent [facility] 01-01-2022 COVID-19 mRNA Bivale nt Booster (Moderna) [facility] 01-01-2022 Fluzone QIV High-Dos e 65YR+ [facility] 01-01-2022 zoster vaccine recombinant [facility] 01-01-2022 influenza virus vacc ine, unspecified formulation Elias Domingo DO Work Phone: [facility] 12-26-2020 COVID-19 mRNA, Comir joshua (Pfizer) [facility] 12-23-2020 zoster vaccine recombinant [facility] 05-11-2020 pneumococcal polysaccharide vaccine, 23 valent [facility] 04-17-2020 COVID-19 Vaccine Robbie ricks - Documentation Purposes Only Joaquín Maria Other [facility] Payers Date Payer Category Payer Private Health Insurance [id number] 2016 Medicare [id number] 1959 Medicare [id number] 2.1 [id number] 1959 Private Health Insurance [id number] 1959 Self-pay 1950 Unknown [id number] 2.16.8 [id number] 1949 Unknown [id number] 2.16.8 40.1.600251.3.579.2.173 1949 Unknown [id number] 2.16.8 40.1.136123.3.579.2.647 1949 Unknown [id number] 2.16.8 40.1.095404.3.579.2.647 1949 Unknown [id number] 2.16.84 0.1.415550.3.579.2.593 1949 Unknown [id number] 2.16.84 0.1.066674.3.579.2.593 1949 Unknown [id number] 2.16.84 0.1.945588.3.579.2.593 1949 Unknown [id number] 2.16.84 0.1.114896.3.579.2.593 1949 Unknown [id number] 2.16.84 0.1.319922.3.579.2.593 1949 Unknown [id number] 2.16.84 0.1.025525.3.579.2.593 1949 Unknown [id number] 2.16.84 0.1.775405.3.579.2.593 1949 Unknown [id number] 2.16.84 0.1.462395.3.579.2.593 1949 Unknown [id number] 2.16.84 0.1.851022.3.579.2.1259 Unknown [id number] 2.16.84 0.1.910692.3.579.2.593 Unknown [id number] 2.16.8 40.1.534100.3.579.2.531 Unknown [id number] 2.16.8 40.1.637681.3.579.2.531 Social History Date Type Detail Facility Unknown if ever smoked [facility] Other Sex Assigned At [facility] Other Start: 1950 Sex Assigned At Female [facility] Tobacco smoking status [facility] Tobacco smoking consumption unknown [facility] Start: 1950 Sex Assigned At Not on file [facility] Start: 08-28-2023 Tobacco smoking status SCIS Ex-smoker (finding) [facility] Clinical Notes 04-09-2021 to 08-26-2023 Note Date & Type Note Facility 08-26-2023 Evaluation note Authored August 26, 2023 2:16 pm Start weight: 199.7 lbs., sh e is down 19.5 lbs. today with a weight of 180.2 lbs. She is up 5.0 lbs. since her last visit on 03/13/2023. Starting waist circumference: 39.0 inches. Starting Date: 09/04/2020. Ozempic start date 08/23/2021. Ozempic start weight 184.5 pounds. She had to stop the Ozempic due to not covered by insurance. She felt it was helpful. Now on Semaglutide from [employer], down 9.3 lbs. Has since quit Sema/ Buderer. 1. Abnormal weight gain. Her mother has similar weight issues. 2. Obesity -improved but she was having significant weight regain until starting compounded semaglutide. She now however would like to try off the medication. Fortunately she is still down almost 10% from her start weight. She has multiple serious weight related comorbidities that could benefit from healthy lifestyle change and weight loss. She is on Farxiga 10 mg now for her CHF, but Farxiga can also help with diabetic prevention and weight loss. Ozempic had been very helpful in the past, but Ozempic is now non-covered by her insurance. She had felt Ozempic was a miracle. In the past, she had felt she was never full before she was given Ozempic 0.5 mg samples. She was having more cravings off Ozempic. She should continue to try to control her environment and keep trigger foods out of her house. She does not qualify for Ozempic patient assistance. I continue to recommend not skipping meals and following the plate method. She must try to get in more fruits and vegetables. She is seeing the tack welder. The patient will treat with long-term lifestyle changes of improved nutrition, increased exercise and activity, stress reduction, adequate sleep and behavioral modification versus short-term dieting. Before starting the program the biggest reasons for weight struggles include Lack of exercise, Food Addiction- Ice Cream, Binge eating- emotional eating. She is on Effexor 150 mg from her PCP for her depression. Her depression has significantly improved with her success at weight loss and healthy lifestyle change. She must continue to try to avoid fruit juices. She had a past issue with binge eating and notes she can overeat or eat a lot of many different foods. She will continue to try to keep trigger foods out of the house. She is retired. Weight loss medication options are limited due to being on Medicare and history of A. fib. 3. Depression-markedly improved with weight loss, feeling better about herself, lifestyle change, feeling better and time. She denies current depressive issues. 4. Fatty liver - improved with a 10% weight loss. She notes it was noted when she had her gallbladder out. We will treat with lifestyle change. 5. History of atrial fib/CHF-still in A. fib by her history despite ablation x2. She is rate controlled. She is now having her sleep apnea treated. She follows up with cardiology. We would avoid stimulants. Recommend SGLT2 inhibitor. 6. Hypertension-well controlled. We will treat with a low-salt diet, decreased processed and restaurant foods, healthy lifestyle changes and weight loss. Monitor. 7. Obstructive sleep apnea/Burr of 14/a.m. fatigue-treat with CPAP. We will continue to treat with lifestyle changes and weight loss. 8. Prediabetes stable with an A1c of 5.8-she should continue first-line treatment with long-term healthy lifestyle change, decreased simple sweets and refined starches, increased exercise and activity and long-term weight loss. Consider metformin. Consider restarting in the future a GLP-1 agonist. She needs close long-term follow-up for this condition to prevent diabetes. 9. CKD 3-she will increase her water intake. 10. Hypercholesterolemia-should be improving. She will continue to treat with decreasing the bad fats, added fats, increase activity and exercise and achieve long-term weight loss. 11. Metabolic syndrome-improving. Continue to treat with long-term healthy lifestyle changes, behavioral changes, nutritional changes, increased exercise and weight loss. Follow-up with me in 8 weeks. New labs needed: Monitor hemoglobin A1c and cholesterol values with treatment. CMP, cholesterol profile fasting and TSH ordered prior to visit in 2 months. We will repeat A1c after 6 months in February 2024. 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 [facility] Work Phone: 1(961) 713-632402-13-2024 NoteUT Electrophysiology Note [facility] Reason for Consultation: 6 month follow [...] HP and consent for AVN ablation s/p LOOP SEWER-P 01/21/22 She has been doing well since pacemaker placement Recent device check 03/05/22 shows normal device function with normal thresholds - underlying rhytb afib - RV/LV paced 18% She had a recent admission to [facility] for acute decompensated CHF with A-fib [...] managed with diltiazem. She was brought to [facility] for DCCV and perforemd by Dr Turner on 06/02/20. She converted to SR and subsequently was admitted to [facility] with ADHF and pulm edema. She [...] have suggested PPM+AVN ablation at this time. [facility] cardiac rehab staff says her HR [...] IV CONTRAST STEVE CONVERSION (more content not included)...[facility]02-13-2024 Note Patient here for 6 mo follow up persistent afib, chronic systolic heart failure, valve disorder, and hypertension. She is scheduled for routine device check next month. Denies chest pain, SOB, palpitations, lightheadedness/syncope, and bleeding on Xarelto. Review of Systems Respiratory: Positive for cough. All other systems reviewed and are negative.[facility] 03-19-2023 Telephone encounter Note* Telephone Encounter - Julian Nielsen - 03/19/2023 1:58 PM EST Patient is scheduled. [id number] Miscellaneous Notes* Telephone Encounter - Julian Nielsen - 03/19/2023 1:58 PM EST Patient is scheduled. * Telephone Encounter - Julian Nielsen - 03/06/2023 5:59 PM EST (1st call) left voicemail * Telephone Encounter - Julian Nielsen - 03/06/2023 5:58 PM EST Images from the original note were not included. Referral approved Calling patient * Telephone Encounter - Julian Nielsen - 03/05/2023 5:10 PM EST GUILLERMO BELTRAN received a referral for this patient. Dx: inspire consult / [facility] INSURANCE: medicare Referral is in [facility] for review. documented in this encounterHermann [facility] [id number] Evaluation note* Encounter Date Diagnosis Assessment Notes Treatment Notes Treatment Clinical Notes Mar, Prediabetes (ICD-10 - R73.03) Mar, Overweight (BMI 25.0 -29.9) (ICD-10 - E66.3) Mar, Hypercholesterolemia (ICD-10 - E78.00) Mar, Fatty liver (ICD-10 - K76.0) Mar, Binge eating (ICD-10 - R63.2) Mar, High blood pressure (ICD-10 - I10) Mar, Depression, unspecif ied depression type (ICD-10 - F32.9) Mar, Snores (ICD-10 - R06.83) Mar, Atrial fibrillation (ICD-10 - I48.91) Mar, CKD (chronic kidney disease) (ICD-10 - N18.9) Mar, Metabolic syndrome X (ICD-10 - E88.81) [facility] Other 02-01-2024 Evaluation note* Author Bryanna Ryder [facility] Authored August 26, 2023 1:58 pm Start weight: 199.7 lbs., sh e is down 19.5 lbs. today with a weight of 180.2 lbs. She is up 5.0 lbs. since her last visit on 03/13/2023. Starting waist circumference: 39.0 inches. Starting Date: 09/04/2020. Ozempic start date 08/23/2021. Ozempic start weight 184.5 pounds. She had to stop the Ozempic due to not covered by insurance. She felt it was helpful. Now on Semaglutide from [employer], down 9.3 lbs. Has since quit Sema/ Buderer. 1. Abnormal weight gain. Her mother has similar weight issues. 2. Obesity -improved but was having significant weight regain until starting compounded semaglutide. She has had some further weight regain with missing doses. We are trying to find the correct dose she is going to use the 0.6 but could go up to the 1.2 if needed. She feels it is affordable. She has multiple serious weight related comorbidities and is getting some weight regain. She still has a greater than 10% weight loss. She is on Farxiga 10 mg now for her CHF, but can also help with diabetic prevention and weight loss. Ozempic had been very helpful in the past, but Ozempic is now non-covered by her insurance. She had felt Ozempic was a miracle. In the past, she had felt she was never full before she was given Ozempic 0.5 mg samples. She was having more cravings off Ozempic. She should continue to try to control her environment and keep trigger foods out of her house. She does not qualify for patient assistance. I recommend not skipping meals and following the plate method. She must try to get in more fruits and vegetables. She is seeing the tack welder. The patient will treat with long-term lifestyle changes of improved nutrition, increased exercise and activity, stress reduction, adequate sleep and behavioral modification versus short-term dieting. Before starting the program the biggest reasons for weight struggles include Lack of exercise, Food Addiction- Ice Cream, Binge eating- emotional eating. She is on Effexor 150 mg from her PCP for her depression. Her depression has significantly improved with her success at weight loss and healthy lifestyle change. She must continue to try to avoid fruit juices. She had a past issue with binge eating and notes she can overeat or eat a lot of many different foods. She will continue to try to keep trigger foods out of the house. She is retired. Weight loss medication options are limited due to being on Medicare and history of A. fib. 3. Depression-markedly improved with weight loss, feeling better about herself, lifestyle change, feeling better and time. She denies current depressive issues. 4. Fatty liver - improved with greater than 15% weight loss. She notes it was noted when she had her gallbladder out. We will treat with lifestyle change. 5. History of atrial fib/CHF-still in A. fib by her history despite ablation x2. She is rate controlled. She is now having her sleep apnea treated. She follows up with cardiology. We would avoid stimulants. Recommend SGLT2 inhibitor. 6. Hypertension-well controlled. We will treat with a low-salt diet, decreased processed and restaurant foods, healthy lifestyle changes and weight loss. Monitor. 7. Obstructive sleep apnea/Burr of 14/a.m. fatigue-treat with CPAP. We will continue to treat with lifestyle changes and weight loss. 8. Prediabetes- improving with significant weight loss and healthier eating with A1c dropping from 5.8-5.4. Should continue first-line treatment with long-term healthy lifestyle change, decreased simple sweets and refined starches, increased exercise and activity and long- term weight loss. Consider metformin. Cost is a current issue with a GLP-1 agonist. She needs close long-term follow-up for this condition to prevent diabetes. 9. CKD 3-she will increase her water intake. 10. Hypercholesterolemia-should be improving. She will continue to treat with decreasing the bad fats, added fats, increase activity and exercise and achieve long-term weight loss. 11. Metabolic syndrome-improving. Continue to treat with long-term healthy lifestyle changes, behavioral changes, nutritional changes, increased exercise and weight loss. Follow-up with me in 8 weeks. New labs needed: Monitor hemoglobin A1c and cholesterol values with treatment. Repeat A1c after 6 months in February. 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 [facility] Work Phone: 1(297) 212-142901-25-2024 Telephone encounter Note* Telephone Encounter - Julian Nielsen - 03/06/2023 5:59 PM EST (1st call) left voicemail [facility] [id number] Telephone encounter Note* Telephone Encounter - Julian Nielsen - 03/06/2023 5:58 PM EST Images from the original note were not included. Referral approved Calling patient [facility] [id number] Telephone encounter Note* Telephone Encounter - Julian Nielsen - 03/05/2023 5:10 PM EST GUILLERMO ENT received a referral for this patient. Dx: inspire consult / [facility] [place] INSURANCE: medicare [facility]erral is in [facility]. [id number] Evaluation note* Encounter Date Diagnosis Assessment Notes [...] would need to be undertaken at the slide forming machine operator office while heart rhythm and pacing parameters [...] changes in symptoms and/or problems with treatment [facility] Other 10-25-2023 Evaluation note* Encounter Date Diagnosis [...] 1-2 x/week in addition to cardiac rehab [facility] Other 10-12-2023 Evaluation note* Encounter Date Diagnosis [...] Nov, Metabolic syndrome X (ICD-10 - E88.81) [facility] Other 08-08-2023 Evaluation note* Encounter Date Diagnosis [...] Metabolic syndrome X (ICD-10 - E88.81) Not [id number] NotePatient is here today for a 2 month follow up Review of Systems Eyes: Positive for blurred vision. Right arm Cardiovascular: Positive for leg swelling. All other systems reviewed and are negative.[facility] 08-21-2022 NoteUT Electrophysiology Note [facility] Reason for Consultation: 3 month follow [...] HP and consent for AVN ablation s/p LOOP SEWER-P 01/21/22 She has been doing well since pacemaker placement Recent device check 03/05/22 shows normal device function with normal thresholds - underlying rhytb afib - RV/LV paced 18% She had a recent admission to [facility] for acute decompensated CHF with A-fib [...] managed with diltiazem. She was brought to [facility] for DCCV and perforemd by Dr Turner on 06/02/20. She converted to SR and subsequently was admitted to [facility] with ADHF and pulm edema. She [...] have suggested PPM+AVN ablation at this time. [facility] cardiac rehab staff says her HR [...] WO IV CONTRAST 05/14 (more content not included)...[facility]06-27-2023 Evaluation note* Encounter Date Diagnosis Assessment [...] Jul, Metabolic syndrome X (ICD-10 - E88.81) [facility] Other 05-10-2023 NoteUT Electrophysiology Note [facility] Reason for Consultation: 1 month follow [...] HP and consent for AVN ablation s/p LOOP SEWER-P 01/21/22 She has been doing well since pacemaker placement Recent device check 03/05/22 shows normal device function with normal thresholds - underlying rhytb afib - RV/LV paced 18% She had a recent admission to [facility] for acute decompensated CHF with A-fib [...] managed with diltiazem. She was brought to [facility] for DCCV and perforemd by Dr Turner on 06/02/20. She converted to SR and subsequently was admitted to [facility] with ADHF and pulm edema. She [...] have suggested PPM+AVN ablation at this time. [facility] cardiac rehab staff says her HR is always in the 130's . She had recent sleep study and will be getting a cpap machine in 4-6 weeks. EP study 07/11/2021 LA baseline (mmHg) 1st 05/10 LA 600ms pacing (mmHg) NA LA 400ms [...] WO IV CONTRAST (more content not included)... [facility]05-10-2023 NotePatient here for follow up AV node ablation on 04/22/[address] Hernadez. Doing very well s/p ablation. Denies chest pain, SOB, and bleeding on Xarelto. Still going to cardiac rehab at [facility] a few times a week. LE edema is no more than usual for her she says. Did not have follow up BMP. Her device was interrogated in the office last week. Review of Systems Cardiovascular: Positive for leg swelling. All other systems reviewed and are negative.[facility] 04-18-2022 Evaluation note* Encounter Date Diagnosis Assessment Notes [...] Apr, Metabolic syndrome X (ICD-10 - E88.81) [facility] Other 03-02-2023 Evaluation note* Encounter Date Diagnosis [...] set the following goals: NOT REVIEWED TODAY [facility] Other 12-01-2022 Evaluation note* Encounter Date Diagnosis [...] sister on phone or an audio book [facility] Other 10-25-2022 Evaluation note* Encounter Date Diagnosis [...] Nov, Metabolic syndrome X (ICD-10 - E88.81) [facility] Other 09-29-2022 Evaluation note* Encounter Date Diagnosis [...] Oct, Metabolic syndrome X (ICD-10 - E88.81) [facility] Other 08-18-2022 Evaluation note* Encounter Date Diagnosis [...] Sep, Metabolic syndrome X (ICD-10 - E88.81) [facility] Other 07-07-2022 Evaluation note* Encounter Date Diagnosis [...] sister on phone or an audio book [facility] Other 05-17-2022 Evaluation note* Encounter Date Diagnosis [...] following goals: - increase exercise by meeting w/ Zak ; NOT MET; message to Zak to reschedule - choose healthier snacks - MET ; - NEW: increase protein to about 15 g /meal [facility] Other 04-05-2022 Evaluation note* Encounter Date Diagnosis [...] May, Metabolic syndrome X (ICD-10 - E88.81) [facility] Other 03-10-2022 Evaluation note* Encounter Date Diagnosis [...] goals: - NEW: increase exercise by meeting luiz/ zak - NEW: choose healthier snacks [facility] Other 02-28-2022 Evaluation note* Encounter Date Diagnosis [...] Mar, Metabolic syndrome X (ICD-10 - E88.81) [facility] Other Evaluation noteNo InformationNort [employer] Other Evaluation noteNo assessment information available [facility] Work Phone: Hisvmmq general Narrative - Reported* Type Description Date Medical History depression Medical History anxiety Medical History high blood pressure Medical History Atrial fibrillation Medical History snoring Surgical History gall bladder [facility] Other History general Narrative - Reported* Type Description Date Medical History depression Medical History anxiety Medical History high blood pressure Medical History Atrial fibrillation Medical History snoring Medical History sleep apnea Surgical History [employer] bladder [facility] Other Hiswdlf general Narrative - Reported* Type Description Date Medical History depression Medical History anxiety Medical History high blood pressure Medical History Atrial fibrillation Medical History snoring Medical History sleep apnea Medical History CHF Medical History Pacemaker 01-21-2022 Surgical History gall bladder Surgical History Pacemaker Hospitalization History See above [facility] Other Hisdvun general Narrative - Reported* Type Description Date Medical History depression Medical History anxiety Medical History high blood pressure Medical History Atrial fibrillation Medical History snoring Medical History sleep apnea Medical History CHF Medical History Pacemaker 01-21-2022 Medical History Heart ablation Surgical History gall bladder Surgical History Pacemaker Surgical History Heart Ablation [facility] Hospitalization History See above [facility] Other Summary Purpose Family History Relationship Condition Age at Onset Recorded Date/T sumeet brother Obesity Unknown father Unknown grandparent Obesity Unknown Not Specified Malignant neoplasm Unknown Heart disease Unknown Unknown Relationship Condition Age at Onset Recorded Date/T sumeet brother Obesity Unknown father Unknown grandparent Obesity Unknown mother Malignant neoplasm Unknown Heart disease Unknown Unknown Advance Directives Advance Directive Response Recorded Date/ Time Advance Directives No March 9:17am Advance Directive Response Recorded Date/ Time Advance Directives No March 10:17am Chief Complaint and Reason for Visit Chief Complaint Wmn Obesity Interested in Inpsire/Matt/MSC Chief Complaint Establish Reason for Visit Essential hypertensi on Fatty liver Hypercholesterolemia Obstructive sleep apnea Overweight (BMI 25.0-29.9) Pre-diabetes Anxiety Depression Essential hypertension Fatty liver Hypercholesterolemia Obstructive sleep apnea Post-menopausal Pre-diabetes Screening for osteoporosis Additional Source Comments INFORMATION SOURCE (unrecogn ized section and content) DATE CREATED AUTHOR 06/10/2018 [facility] DATE CREATED AUTHOR AUTHOR'S ORGANIZ ATION 09/12/2021 [facility] DATE CREATED AUTHOR AUTHOR'S ORGANIZ ATION 06/23/2022 [facility] DATE CREATED AUTHOR AUTHOR'S ORGANIZ ATION 04/12/2023 [facility] EPIC DATE CREATED AUTHOR AUTHOR'S ORGANIZ ATION 04/24/2023 [facility] DATE CREATED AUTHOR AUTHOR'S ORGANIZ ATION 07/15/2023 [facility] REASON FOR VISIT (unrecogniz ed section and content) WMN restarting programWMN Dr follow upWMN Initial RDr/s RD appt WMPrior AuthFCCC ApptsDC OzempicWM RD follow upDC Interested in exercise programWM Exercise programNo InformationWM RD follow up - 6 wksWMN F/UWMN F/U4 weeksWM [address] follow upCKD (previously WMWMN [...] March 04, 2023 End: March 04, 2023 Team Status: Active Member Role Status Dates Sonia Baig APRN RETAIL SOLAR ADVISOR-C Primary Care Provider Active Team Status: Inactive Member Role Status Dates Sonia Baig APRN RETAIL SOLAR ADVISOR-C Primary Care Provider Active Start: August 26, 2023 End: August 26, 2023 Joaquín Maria MD Attending Provider Active Start: August 26, 2023 End: August 26, 2023 Team Status: Inactive Member Role Status Dates Sonia Baig APRN RETAIL SOLAR ADVISOR-C Primary Care Provider, Attending Provider Active Start: August 28, 2023 End: August 28, 2023 Goals (unrecognized section and content) Goals [...] BE BASED ON THE PRIMARY CLINICAL RECORDS. [employer] provides no warranty or guarantee of the accuracy or completeness of information in this document.
== END 2023-09-01 14:53 | disposition home or self-care (01) ==
LOC: CARD 14:53
PROVIDERS: PCP Nurse Practitioner Family; Visit Provider Nurse Practitioner
DX: I34.0 Nonrheumatic mitral (valve) insufficiency (principal)
CPT/HCPCS: 93306

== ENCOUNTER 2023-09-04 13:31 | Outpatient (OUT) | payer MEDICARE, OTHER, SELFPAY ==
--- NOTE | 2023-09-04 13:35 | MM_ITS ---
Patient Name: LEO DIANE MR#: [id number] : 1950 Exam Date: 09/04/2023 Ordering Doctor: ENMANUEL DUBOSE FLIGHT ENGINEER INSPECTOR-C RADIOLOGY REPORT PROCEDURE: MM TOMOSYNTHESIS SCREENING BI COMPARISON: None. INDICATIONS: Screening Calculator Name NCI Breast Cancer Risk Assessment Tool 5 Year Breast Cancer Risk 2.00% Lifetime Breast Cancer Risk 4.80% Personal Breast Cancer No Personal Ovarian Cancer No Treatments None Family Cancers Sister with lung cancer at age 72; Mother with lymph cancer at age 70. LOCATION: [facility] BREAST COMPOSITION: There are scattered areas of fibroglandular density. FINDINGS: DIAGNOSTIC CATEGORY 2--BENIGN FINDING. NO CHANGE FROM COMPARISON. Scattered benign-appearing calcifications are present. Scattered benign-appearing lymph nodes are present. RIGHT BREAST: No significant suspicious finding. LEFT BREAST: No significant suspicious finding. Pacemaker obscures the left axillary tail RECOMMENDATIONS: ROUTINE MAMMOGRAM AND CLINICAL EVALUATION IN 12 MONTHS. PLEASE NOTE: A NORMAL MAMMOGRAM DOES NOT EXCLUDE THE POSSIBILITY OF BREAST CANCER. A CLINICALLY SUSPICIOUS PALPABLE LUMP SHOULD BE BIOPSIED. Dictated by: Sylvester Valentin MD on 09/04/2023 at 15:17 Approved by: Sylvester Valentin MD on 09/04/2023 at 15:39
--- NOTE | 2023-09-04 13:35 | XR_ITS ---
The [address] [address] Patient Name: LEO DIANE MRN: [id number] date: 1950 Sex: F Assigned Patient Location: [facility] Current Patient Location: [facility] Accession/Order Number: [id number] Exam Date: 09/04/2023 14:11 Report Date: 09/04/2023 15:29 At the request of: ENMANUEL DUBOSE Procedure: XR DEXA axial skeleton EXAMINATION: XR DEXA axial skeleton, 09/04/2023 2:11 PM EDT HISTORY: Post Menopausal COMPARISON: 2010. TECHNIQUE: Dual-energy X-ray absorptiometry (DEXA) bone density study performed for the axial skeleton. FINDINGS: Bone mineral density AP spine L1-L4 measures 0.913 g/sq cm. T score -2.2. Osteopenia. Bone mineral density in the femoral necks measures 0.779 g/sq cm. T score -1.9. Osteopenia Physiologic reduction in bone density from the prior exam XR/XR DEXA axial skeleton IMPRESSION: Osteopenia. Moderate fracture risk Pharmacologic treatment recommendations * No uniform recommendation applies to all patients. Management plans must be individualized. * Consider initiating pharmacologic treatment in postmenopausal women and men >= 50 years of age who have the following: Primary fracture prevention: * T-score <= - 2.5 at the femoral neck, total hip, lumbar spine, 33% radius (some uncertainty with existing data) by DXA. * Low bone mass (osteopenia: T-score between - 1.0 and - 2.5) at the femoral neck or total hip by DXA with a 10-year hip fracture risk >= 3% or a 10-year major osteoporosis-related fracture risk >= 20% (i.e., clinical vertebral, hip, forearm, or proximal humerus) based on the US-adapted FRAXregistered model. Secondary fracture prevention: * Fracture of the hip or vertebra regardless of BMD [4, 5]. * Fracture of proximal humerus, pelvis, or distal forearm in persons with low bone mass (osteopenia: T-score between - 1.0 and - 2.5). The decision to treat should be individualized in persons with a fracture of the proximal humerus, pelvis, or distal forearm who do not have osteopenia or low BMD [12, 13]. Keila MS, Maddison SL, Hernán KL, Anson EM, Maisha KG, Ivey AJ, Adelia ES. The clinician's guide to prevention and treatment of osteoporosis. Osteoporos Int. 2021;33(10):1136-9455. doi: 10.1007/s60908-856-69555-u. Epub 2021Jun 07. Erratum in: Osteoporos Int. 2021Sep 06;: PMID: [id number]; PMCID: [id number]. Electronically authenticated by: MED CASTREJON Date: 09/04/2023 15:29
== END 2023-09-04 13:32 | disposition home or self-care (01) ==
LOC: RAD 13:31
PROVIDERS: PCP Nurse Practitioner Family; Visit Provider Nurse Practitioner Family
DX: Z12.31 Encounter for screening mammogram for malignant neoplasm of breast (principal); Z78.0 Asymptomatic menopausal state; Z13.820 Encounter for screening for osteoporosis; Z80.7 Family history of other malignant neoplasms of lymphoid, hematopoietic and related tissues; Z80.1 Family history of malignant neoplasm of trachea, bronchus and lung; M85.80 Other specified disorders of bone density and structure, unspecified site
CPT/HCPCS: 77063; 77067; 77080

== ENCOUNTER 2023-10-14 08:38 | Outpatient (OUT) | payer MEDICARE, OTHER, SELFPAY ==
--- NOTE | 2023-10-14 | PCN_ITS ---
CARDIAC STRESS TEST Requesting Physician: Procedure Date: 10/14/2023 INDICATION: Ventricular tachycardia, chronic systolic heart failure. METHOD: After risks, benefits and alternatives were explained, written informed consent was obtained. The patient was connected to the appropriate hemodynamic and electrocardiographic monitoring. She underwent a Lexiscan pharmacological stress test. She was transferred to the nuclear lab for imaging. There were no complications. STRESS TEST INFORMATION: Lexiscan was infused, 0.4 mg intravenously. Resting heart rate was 70 beats per minute, with a mximum heart rate of 70 beats per minute. Resting blood pressure was 130/88 with a minimum blood pressure of 126/82. The patient had no symptoms. FINDINGS: ELECTROCARDIOGRAPHY: Rest EKG showed electronic ventricular pacemaker at 70 beats per minute. During infusion and recovering, electronic ventricular paced rhythm was seen. No significant changes seen. FINAL IMPRESSIONS: 1. Uninterpretable EKG due to underlying paced rhythm. 2. Nuclear images are to be read, interpreted and reported in a separate dictation. MARTA
--- NOTE | 2023-10-14 08:15 | NM_ITS ---
Patient Name: LEO DIANE MR#: [id number] : 1950 Exam Date: 10/14/2023 Ordering Doctor: JACI MARSH CNP RADIOLOGY REPORT PROCEDURE: NM EMILY PERF SPECT REST STR COMPARISON: None. INDICATIONS: ATRIAL FIBRILLATION, VENTRICULAR TACHYCARDIA, PACEMAKER TECHNIQUE: Exam Description: Stress/Rest one day protocol gated SPECT Rest Imagin.2 mCi Tc-99m Cardiolite IV on 10/14/2023 Stress Imaging 30.6 mCi Tc-99m Cardiolite IV on 10/14/2023 Exercise Protocol: 0.4 mg Lexiscan given IV Heart Rate (bpm): Rest: 70 Max: 75 PMHR: 51 Blood Pressure: Rest: 130/88 Max: 134/80 Symptoms: Rest and peak stress ECG findings were non-diagnostic and the exercise portion of the study was Uninterpretable per attending physician Dr. Osorio due to PACED RHYTHM. For more details please see separate cardiac stress test report. FINDINGS: QUALITY OF STUDY: Excellent. PERFUSION DEFECT: None. LOCATION: N/A SIZE: N/A. SEVERITY: N/A. TYPE: N/A. WALL MOTION: Normal. LV SIZE: Normal. 76 mL. TID / TCD: None; 0.8 LVEF: Normal. Calculated EF 70%. SUMMARY: Myocardial perfusion imaging study is NORMAL. CONCLUSION: 1. Normal nuclear medicine myocardial perfusion scan. Dictated by: Juan Ramon Chavez M.D. on 10/14/2023 at 15:44 Approved by: Juan Ramon Chavez M.D. on 10/14/2023 at 15:46
== END 2023-10-14 08:39 | disposition home or self-care (01) ==
LOC: NM 08:38
PROVIDERS: PCP Nurse Practitioner Family; Visit Provider Nurse Practitioner Family
DX: I47.29 Other ventricular tachycardia (principal); I48.0 Paroxysmal atrial fibrillation; I50.22 Chronic systolic (congestive) heart failure
CPT/HCPCS: 78452; 93017; A9500

== ENCOUNTER 2024-03-04 09:50 | Outpatient (OUT) | payer MEDICARE, OTHER, SELFPAY ==
--- OUTSIDE RECORDS SUMMARY | 2024-03-04 10:14 | XMS_ITS | CCD ---
Author Organization [facility] Care Team Providers Care Data Compiler Name Role Phone HOUSE, SR TY P [...] Unavailable DO Ty Thomas Primary Care Provider [phone] MD Joaquín Maria Attending Provider MD Med Briggs Attending Provider NON STAFF Primary Care Provider UnavailMed Cunningham Unavailable Unavailable Primary Care Provider UnavailELIAS Gee Attending Unavailable MED BRIGGS Referring Unavailable Joaquín Maria Admitting Unavailable Ty Thomas Primary Care Unavailable Joaquín Maria Attending Unavailable NON STAFF Primary Care Unavailable Med Briggs Attending Unavailable Med Briggs Admitting Unavailable JACI MARSH Attending Unavailable REGINO HERNADEZ Referring Unavailable REGINO HERNADEZ Referring Unavailable JIMI THOMPSON Attending Unavailable REGINO HERNADEZ Referring Unavailable Allergies Allergy Classification Reported Allergen(s) Allergy Type Date of Onset Reaction(s) Facility (20 sources) Amiodarone Drug Allergy 4 [facility] (20 sources) penicillAMINE Drug Allergy 4 Unknown, [facility] (3 sources) Penicillins; Translations: [PENICILLINS] Drug allergy (disorder) 6 [facility] Repository (1 source) Leucine Drug Allergy 7 [facility] Repository (1 source) Amiodarone Drug Allergy [address] [place] [address] Repository (1 source) penicillAMINE Drug Allergy [address] [place] [address] Repository Medications Current Medications Medication Drug Class(es) Dates Sig (Normalized) Sig (Original) benzonatate 200 mg oral capsule (1 source) Non-narcotic Antitussive Start: 12-30-2023 take 1 capsule by mouth three times daily as needed for cough Benzonatate 200 mg capsule Active 200 MG PO Three times daily as needed for cough 09 12December 30, 2023 12:00am cholecalciferol 0.25 mg oral capsule (9 sources) Vitamin D Vitamin D3 250 MCG (93213 UT) as directed Orally Active clobetasol propionate 0.0005 mg/mg topical ointment (4 sources) Corticosteroid Start: 08-28-2023 Clobetasol 0.05 % ointment Active 1 APPLIC TOPICAL Daily August 27, 2023 11:00pm dapagliflozin 10 mg oral tablet (12 sources) Sodium-Glucose Cotransporter 2 Inhibitor Start: 08-12-2023 take 1 tablet by mouth once daily Dapagliflozin Propanediol (Farxiga) 10 mg tablet Active 10 MG PO Daily August 11, 2023 11:00pm take 1 tablet by alex th every twenty-four hours Farxiga 10 MG 1 tablet Orally Once a day Dapagliflozin Active 24 hr dilTIAZem hydrochloride 360 mg extended release oral capsule (19 sources) Calcium Channel Tomas take 1 capsule by mouth every twenty-four hours dilTIAZem HCl ER Coated Beads 360 MG 1 capsule Orally Once a day Active doxycycline monohydrate 100 mg oral capsule (1 source) Tetracycline-class Drug Start: 12-30-19 take 1 capsule by mouth twice daily Doxycycline Monohydrate 100 mg capsule Active 100 MG PO Twice daily 29 11December 30, 2023 12:00am 2 ml dupilumab 150 mg/ml auto-injector (11 sources) Interleukin-4 Receptor alpha Antagonist Start: 08-12-19 End: 08-28-19 inject 300 mg by subcutaneous injection every other week Dupilumab (Dupixent Pen) 300 mg/2 mL pen injector Active 300 MG SUBCUT EVERY 2 WEEKS August 28, 2023 9:43am Dupixent 300 MG/ 2ML Subcutaneous for 28 Days Active Echinacea 400 MG (16 sources) Echinacea 400 MG as directed Orally Active furosemide 40 mg oral tablet (20 sources) Loop Diuretic Start: 08-12-2023 take 1 tablet by mouth twice daily Furosemide 40 mg tablet Active 40 MG PO Twice daily August 11, 2023 11:00pm take 1 tablet by alex th every [...] Angiotensin Converting Enzyme Inhibitor Start: 08-12-2023 take 1 tablet by mouth twice daily Lisinopril 20 mg tablet Active 20 MG PO Twice daily August 11, 2023 11:00pm take 1 tablet by alex th every twelve hours Lisinopril 20 MG 1 tablet Orally BID Act joseph take 1 tablet by alex th every twenty-four hours Lisinopril 20 MG 1 tablet Orally Once a day Active magnesium oxide 400 mg oral tablet (15 sources) Start: 08-12-2023 take 1 tablet by mouth once daily Magnesium Oxide 400 mg (241.3 mg magnesium) tablet Active 400 MG PO Daily August 11, 2023 11:00pm take 1 tablet by alex th every twenty-four hours Magnesium Oxide 400 MG 1 tablet Orally Once a day Active take 1 tablet by mouth every twe lve hours Magnesium Oxide 400 MG 1 tablet Orally BID Active 24 hr metoprolol succinate 100 mg extended release oral tablet (20 sources) beta-Adrenergic Tomas Start: 08-12-2023 take 1 tablet by mouth once daily Metoprolol Succinate 100 mg tablet extended release 24 hr Active 100 MG PO Daily August 11, 2023 11:00pm take 1 tablet by alex th every twenty-four hours Metoprolol Succinate ER 100 MG 1 tablet Orally Once a day Active take 1.5 tablets by mouth every twenty-four hours Metoprolol Succinate ER 100 MG 1.5 table t Orally Once a day Not-Taking potassium chloride 20 meq extended release oral tablet (15 sources) Start: 08-12-2023 take 1 tablet by mouth twice daily Potassium Chloride 20 mEq tablet extended release Active 20 MEQ PO Twice daily August 11, 2023 11:00pm take 1 tablet by alex th every twelve hours Potassium Chloride ER 20 MEQ 1 tablet wi th food Orally Twice a day Active take 1 tablet by mouth every six hours Potassium Chloride ER 20 MEQ 1 tablet with food Orally QID Active Semaglutide (2 sources) Start: 11-14-2023 Semaglutide (O zempic) 0.25 mg or 0.5 mg (2 mg/3 mL) pen injector Active 0.25 MG SUBCUT every week 4.784 November 13, 2023 11:00pm Semaglutide Base (1 source) Start: 10-28-2023 inject 1 mL by subcutaneous injection every week Semaglutide Base Active 0.25 ML SUBCUT every week October 28, 2023 12:00am [facility] Pre-filled Syringes using Semaglutide Base. Dispense 1 mL = (Four 0.25 mL pre-filled syringes) Semaglutide Sodium 0.3 mg/ 0.25 mL 0.25 mL (4 sources) Start: 09-18-2022 Semaglutide So dium 0.3 mg/ 0.25 mL 0.25 mL 0.25 mL Injection Once for 7 days Sep, Active Semaglutide Sodium 0.6 mg/ 0.5 mL 0.5 mL (2 sources) Start: 01-09-2023 Semaglutide So dium 0.6 mg/ 0.5 mL 0.5 mL 0.5 mL Injection 7 days Dec, Active Louann-C (8 sources) Louann-C Active Vitamin B12 1000 MCG (16 sources) take 1 tablet by alex th once daily take 1 tablet by mouth once john y Vitamin B12 1000 MCG 1 tablet Orally Once a day Active Vitamin D3 250 MCG (36612 UT ) (7 sources) Vitamin D3 250 M CG (68147 UT) as directed Orally Active Completed/Discontinued Medications Medication Drug Class(es) Dates Sig (Normalized) Sig (Original) rivaroxaban 20 mg oral tablet (20 sources) Factor Xa Inhibitor Start: 08-12-2023 End: 11-04-2023 take 1 tablet by mouth once daily Rivaroxaban 20 mg tablet Discontinued 20 MG PO Daily October 28, 2023 12:31pm November 04, 2023 10:15am Xarellto take 1 tablet by alex th every twenty-four hours Xarelto 20 MG 1 tablet with food Orally Once a day Rivaroxaban Active 0.25 mg, 0.5 mg dose 1.5 ml semaglutide 1.34 mg/ml pen injector (16 sources) Start: 08-23-2021 Ozempic (0.25 or 0.5 MG/DOSE) 2 MG/1.5ML 0.5 mg Subcutaneous weekly for 30 days Aug, Not-Taking Ozempic (0.25 or 0.5 MG/DOSE) 2 MG/1.5ML as directed Subcutaneous weekly for 30 days Not-Taking Semaglutide Base 0.3 mg/0.25 mL (2 sources) Start: 10-28-2023 End: 11-14-2023 inject 1 mL by subcutaneous injection every week Semaglutide Base 0.3 mg/0.25 mL Discontinued 0.25 ML SUBCUT every week October 27, 2023 11:00pm November 14, 2023 10:19am [facility] Pre-filled Syringes using Semaglutide Base. Dispense 1 mL = (Four 0.25 mL pre-filled syringes) 24 hr venlafaxine 150 mg extended release oral capsule (20 sources) Serotonin and Norepinephrine Reuptake Inhibitor Start: 08-12-2023 End: 11-28-2023 take 1 capsule by mouth once daily Venlafaxine 150 mg capsule,extended release 24hr Discontinued 150 MG PO Daily 90 90 August 28, 2023 9:57am November 28, 2023 10:36am take 1 capsule by mo ut every twenty-four hours Venlafaxine HCl ER 150 MG 1 capsule with food Orally Once a day Active Problems Active Problems Problem Classification Problem Date Documented Da te Episodic/Chronic Anxiety disorders (6 sources) Anxiety; Translations: [Anxiety disorder, unspecified] 08-28-2023 [...] Onset: 03-28-2022 Chronic Diabetes mellitus without complication (20 sources) Prediabetes; Translations: [Prediabetes] Onset: 05-15-2021 Resolved: [...] Onset: 03-28-2022 Other aftercare (1 source) 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; Translations: [OTH SENIOR LIVING CURRENT DRUG THERAPY] Onset: 03-28-2022 Episodic Other aftercare (1 source) [facility] (current) use of anticoagulants; Translations: [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 USE ANTICOAGULANTS] Onset: 03-28-2022 Episodic Other liver diseases (20 sources) Steatosis of liver; Translations: [Fatty (change of) liver, not elsewhere classified] 08-26-2023 Chronic Other liver diseases (18 sources) Fatty (change of) liver, not elsewhere [...] Episodic Other nutritional; endocrine; and metabolic disorders (9 sources) Overweight; Translations: [Overweight] Episodic Other nutritional; endocrine; and metabolic disorders (1 source) Body mass index (BMI) 29.0-29.9, adult Episodic Other nutritional; endocrine; and metabolic disorders (4 sources) Body mass index 25-29 - overweight; Translations: [Overweight] 08-26-2023 Episodic Other screening for suspected conditions (not mental disorders or infectious disease) (10 sources) Patient encounter status; Translations: [Encounter for screening for osteoporosis] 08-28-2023 Episodic Other upper respiratory infections (2 sources) Maxillary sinusitis; Translations: [Chronic maxillary sinusitis] 12-30-2023 Chronic Alina-; endo-; and myocarditis; cardiomyopathy (except that caused by tuberculosis or sexually transmitted disease) (1 source) Other cardiomyopathies; Translations: [OTHER CARDIOMYOPATHIES] Onset: 03-28-2022 Chronic Residual codes; unclassified (13 sources) Obstructive sleep apnea (adult) (pediatric); Translations: [Obstructive sleep apnea (adult)(pediatric)] Onset: 10-09-2021 Chronic Residual codes; unclassified (6 sources) Obstructive sleep apnea syndrome; Translations: [Obstructive [...] specified health status Episodic Residual codes; unclassified (4 sources) Postmenopausal state; Translations: [Asymptomatic menopausal state] 08-28-2023 Episodic Residual codes; unclassified (2 sources) Asymptomatic menopausal state; Translations: [Asymptomatic postmenopausal status [...] Translations: [LONGSTNDNG PERSIST ATRIAL FIBRILLTN] Onset: 03-28-2022 Unclassified (1 source) Other ventricular tachycardia; Translations: [Other ventricular tachycardia] Onset: 09-30-2023 Past or Other Problems Problem Classification Problem Date Documented Da te Episodic/Chronic Malaise and fatigue (1 source) Other fatigue; Translations: [OTHER FATIGUE] Onset: 09-08-2021 Episodic Unclassified (1 source) Other ventricular tachycardia; Translations: [Other ventricular tachycardia] Onset: 09-30-2023 Results Test Name Value Interpretation Reference Range Facility 36on 10-22-2023 36 Please let her know her stress test was negative. Continue with increased dose of Toprol and follow-up as planned in 6 months. Thanks! [facility] Telephoneon 10-22-2023 Telephone [id number] Penny Diane 1950 Provider Department Center 10/22/2023 JACI LAMAS Ehsan Rodriguez Family History Problem Relation Age of Onset Hypertension Mother Family Status - Relation Status Age at Mother [facility] 37on 09-30-2023 37 *We will proceed with a stress test to check the blood flow to your heart to further evaluate the abnormal heart rhythm (NSVT or nonsustained ventricular tachycardia) we saw on your last device check. -We will also increase your metoprolol succinate to 150mg daily to help with this. An additional prescription for 50mg daily has been sent to your pharmacy. -If stress test is negative nothing further to do. If stress test is abnormal, we will further review with you. *Continue all other medications as prescribed. Normal [facility] Office Visiton 09-30-2023 Follow-up visit [id number] Penny Diane 1950 Provider Department Center 09/30/2023 JACI LAMAS Family History Problem Relation Age of Onset Hypertension Mother Family Status - Relation Status Age at Mother Level of Service:09301 [place] OFFICE/OUTPATIENT ESTABLISHED MOD MDM 30 MIN Reason for Visit and Comments: Atrial Fibrillation [80] Hypertension [474140] NSVT [Other] [facility] Office Visiton 03-25-2023 Follow-up visit [id number] Palomares 1950 Provider Department Center 03/25/2023 Lara6-JIMI THOMPSON Family History Problem Relation Age of Onset Hypertension Mother Family Status - Relation Status Age at Mother Level of Service:42591 [place] OFFICE/OUTPATIENT ESTABLISHED MOD MDM 30 MIN [facility] A1C HEMOGLOBINon 08-06-2022 HbA1c (Bld) [Mass fraction] 5.4 % in2apps Other HbA1c (Bld) [Mass fraction]o n 08-06-2022 A1C HEMOGLOBIN [place] [employer] Other PROF CHEM 8 (BAS METB)on Anion gap [Moles/Vol] 11.7 mmol/L Normal [facility] Comment on above: Performed By: #### B MP #### [facility] [address] [address] [address] Baldemar Rodriguez Calcium [Mass/Vol] 9.3 mg/dL Normal 8.5-10.1 [facility] Comment on above: Performed By: #### B MP #### [facility] [address] [address] [address] Baldemar Rodriguez Chloride [Moles/Vol] 106 mmol/L Normal 98-107 [facility] Comment on above: Performed By: #### B MP #### [facility] [address] [place] [address] Dr. Baldemar Rodriguez CO2 [Moles/Vol] 31.2 mmol/L Normal 21.0-32.0 [facility] Comment on above: Performed By: #### B MP #### [facility] [address] [address] [address] Baldemar Rodriguez Creatinine [Mass/Vol] 0.92 mg/dL Normal 0.55-1.02 [facility] Comment on above: Performed By: #### B MP #### [facility] [address] [place] [address] Dr. Baldemar Rodriguez EGFR-AF VIETNAMESE >60 Normal >=60 [facility] Comment on above: Performed By: #### B MP #### [facility] [address] [place] [address] Dr. Baldemar Rodriguez EGFR-NON AF VIETNAMESE =60 Normal >=60 [facility] Comment on above: Performed By: #### B MP #### [facility] [address] [address] [address] Baldemar Rodriguez Glucose [Mass/Vol] 96 mg/dL Normal 74-106 [facility] Comment on above: Performed By: #### B MP #### [facility] [address] [address] [address] Baldemar Rodriguez Potassium [Moles/Vol] 3.9 mmol/L Normal 3.5-5.1 [facility] Comment on above: Performed By: #### B MP #### [facility] [address] [place] [address] Dr. Baldemar Rodriguez Sodium [Moles/Vol] 145 mmol/L Normal 136-145 [facility] Comment on above: Performed By: #### B MP #### [facility] [address] [address] [address] Baldemar Rodriguez Urea nitrogen [Mass/Vol] 13.0 mg/dL Normal 7.0-18.0 [facility] Comment on above: Performed By: #### B MP #### [facility] [address] [place] [address] Dr. Baldemar Rodriguez Urea nitrogen/Creatinine [Mass ratio] 14.1 mg/mg Normal [facility] Comment on above: Performed By: #### B MP #### [facility] [address] [place] [address] Dr. Baldemar Rodriguez PROF CHEM 8 (BAS METB)on Anion gap [Moles/Vol] 8.8 mmol/L Normal [facility] Comment on above: Performed By: #### B MP #### [facility] [address] [place] [address] Dr. Baldemar Rodriguez Calcium [Mass/Vol] 9.5 mg/dL Normal 8.5-10.1 [facility] Comment on above: Performed By: #### B MP #### [facility] [address] [place] [address] Dr. Baldemar Rodriguez Chloride [Moles/Vol] 103 mmol/L Normal 98-107 [facility] Comment on above: Performed By: #### B MP #### [facility] [address] [place] [address] Dr. Baldemar Rodriguez CO2 [Moles/Vol] 32.5 mmol/L Critically high 21.0-32.0 [facility] Comment on above: Performed By: #### B MP #### [facility] [address] [place] [address] Dr. Baldemar Rodriguez Creatinine [Mass/Vol] 0.92 mg/dL Normal 0.55-1.02 [facility] Comment on above: Performed By: #### B MP #### [facility] [address] [place] [address] Dr. Baldemar Rodriguez EGFR-AF VIETNAMESE >60 Normal >=60 [facility] Comment on above: Performed By: #### B MP #### [facility] [address] [address] [address] Baldemar Rodriguez EGFR-NON AF VIETNAMESE =60 Normal >=60 [facility] Comment on above: Performed By: #### B MP #### [facility] [address] [place] [address] Dr. Baldemar Rodriguez Glucose [Mass/Vol] 79 mg/dL Normal 74-106 [facility] Comment on above: Performed By: #### B MP #### [facility] [address] [place] [address] Dr. Baldemar Rodriguez Potassium [Moles/Vol] 4.3 mmol/L Normal 3.5-5.1 [facility] Comment on above: Performed By: #### B MP #### [facility] [address] [place] [address] Dr. Baldemar Rodriguez Sodium [Moles/Vol] 140 mmol/L Normal 136-145 [facility] Comment on above: Performed By: #### B MP #### [facility] [address] [place] [address] Dr. Baldemar Rodriguez Urea nitrogen [Mass/Vol] 19.0 mg/dL Critically high 7.0-18.0 [facility] Comment on above: Performed By: #### B MP #### [facility] [address] [place] [address] Dr. Baldemar Rodriguez Urea nitrogen/Creatinine [Mass ratio] 20.7 mg/mg Normal [facility] Comment on above: Performed By: #### B MP #### [facility] [address] [place] [address] Dr. Baldemar Rodriguez CBC AUTO DIFFon 03-26-2022 BASO # 0.0 103/ul Normal 0.0-0.1 [facility] Comment on above: Performed By: #### B MP #### [facility] [address] [place] [address] Dr. Baldemar Rodriguez Basophils/100 WBC (Bld) 0.6 % Normal 0.2-2.0 [facility] Comment on above: Performed By: #### B MP #### [facility] [address] [place] [address] Dr. Baldemar Rodriguez EO # 0.3 103/ul Normal 0.0-0.7 [facility] Comment on above: Performed By: #### B MP #### [facility] [address] [place] [address] Dr. Baldemar Rodriguez Eosinophils/100 WBC (Bld) 4.7 % Normal 0.9-7.0 [facility] Comment on above: Performed By: #### B MP #### [facility] [address] [place] [address] Dr. Baldemar Rodriguez Erythrocyte distribution width (RBC) [Ratio] 14.7 % Normal 11.0-15.0 [facility] Comment on above: Performed By: #### B MP #### [facility] [address] [place] [address] Dr. Baldemar Rodriguez Hematocrit (Bld) [Volume fraction] 39.6 % Normal 36.0-48.0 [facility] Comment on above: Performed By: #### B MP #### [facility] [address] [place] [address] Dr. Baldemar Rodriguez Hemoglobin (Bld) [Mass/Vol] 12.8 g/dL Normal 12.0-16.0 [facility] Comment on above: Performed By: #### B MP #### [facility] [address] [place] [address] Dr. Baldemar Rodriguez IG # 0.02 10e3/ul Normal 0.00-0.03 [facility] Comment on above: Performed By: #### B MP #### [facility] [address] [place] [address] Dr. Baldemar Rodriguez IG % 0.3 % Normal 0.0-0.5 [facility] Comment on above: Performed By: #### B MP #### [facility] [address] [place] [address] Dr. Baldemar Rodriguez LYMPH # 2.3 103/ul Normal 1.2-3.8 [facility] Comment on above: Performed By: #### B MP #### [facility] [address] [address] [address] Baldemar Rodriguez Lymphocytes/100 WBC (Bld) 33.9 % Normal 20.5-60.0 [facility] Comment on above: Performed By: #### B MP #### [facility] [address] [place] [address] Dr. Baldemar Rodriguez MANUAL DIFF REQ NO Normal [facility] Comment on above: Performed By: #### B MP #### [facility] [address] [place] [address] Dr. Baldemar Rodriguez MCH (RBC) [Entitic mass] 30.0 pg Normal 26.7-34.0 [facility] Comment on above: Performed By: #### B MP #### [facility] [address] [place] [address] Dr. Baldemar Rodriguez MCHC (RBC) [Mass/Vol] 32.3 g/dL Normal 29.9-35.2 [facility] Comment on above: Performed By: #### B MP #### [facility] [address] [place] [address] Dr. Baldemar Rodriguez MCV (RBC) [Entitic vol] 92.7 fL Normal 81.0-99.0 [facility] Comment on above: Performed By: #### B MP #### [facility] [address] [place] [address] Dr. Baldemar Rodriguez MONO # 0.6 103/ul Normal 0.3-0.8 [facility] Comment on above: Performed By: #### B MP #### [facility] [address] [place] [address] Dr. Baldemar Rodriguez Monocytes/100 WBC (Bld) 8.7 % Normal 1.7-12.0 [facility] Comment on above: Performed By: #### B MP #### [facility] [address] [address] [address] Baldemar Rodriguez NEUT # 3.4 103/ul Normal 1.4-6.5 [facility] Comment on above: Performed By: #### B MP #### [facility] [address] [address] [address] Baldemar Rodriguez Neutrophils/100 WBC (Bld) 51.8 % Normal 43.0-75.0 [facility] Comment on above: Performed By: #### B MP #### [facility] [address] [place] [address] Dr. Baldemar Rodriguez Platelet mean volume (Bld) [Entitic vol] 9.6 fL Normal 9.5-13.5 [facility] Comment on above: Performed By: #### B MP #### [facility] [address] [place] [address] Dr. Baldemar Rodriguez PLT 233 103/ul Normal 150-450 [facility] Comment on above: Performed By: #### B MP #### [facility] [address] [place] [address] Dr. Baldemar Rodriguez RBC 4.27 106/ul Normal 4.20-5.40 [facility] Comment on above: Performed By: #### B MP #### [facility] [address] [place] [address] Dr. Baldemar Rodriguez WBC 6.6 103/ul Normal 4.0-11.0 [facility] Comment on above: Performed By: #### B MP #### [facility] [address] [place] [address] Dr. Baldemar Rodriguez PROF CHEM 8 (BAS METB)on Anion gap [Moles/Vol] 9.2 mmol/L Normal [facility] Comment on above: Performed By: #### B MP #### [facility] [address] [place] [address] Dr. Baldemar Rodriguez Calcium [Mass/Vol] 9.2 mg/dL Normal 8.5-10.1 [facility] Comment on above: Performed By: #### B MP #### [facility] [address] [address] [address] Baldemar Rodriguez Chloride [Moles/Vol] 102 mmol/L Normal 98-107 [facility] Comment on above: Performed By: #### B MP #### [facility] Laboratory [address] [address] [address] Baldemar Rodriguez CO2 [Moles/Vol] 35.8 mmol/L Critically high 21.0-32.0 [facility] Comment on above: Performed By: #### B MP #### [facility] [address] [address] [address] Baldemar Rodriguez Creatinine [Mass/Vol] 0.91 mg/dL Normal 0.55-1.02 [facility] Comment on above: Performed By: #### B MP #### [facility] [address] [place] [address] Dr. Baldemar Rodriguez EGFR-AF VIETNAMESE >60 Normal >=60 [facility] Comment on above: Performed By: #### B MP #### [facility] [address] [address] [address] Baldemar Rodriguez EGFR-NON AF VIETNAMESE >60 Normal >=60 [facility] Comment on above: Performed By: #### B MP #### [facility] [address] [address] [address] Baldemar Rodriguez Glucose [Mass/Vol] 93 mg/dL Normal 74-106 [facility] Comment on above: Performed By: #### B MP #### [facility] [address] [address] [address] Baldemar Rodriguez Potassium [Moles/Vol] 3.0 mmol/L Critically low 3.5-5.1 [facility] Comment on above: Performed By: #### B MP #### [facility] [address] [address] [address] Baldemar Rodriguez Sodium [Moles/Vol] 144 mmol/L Normal 136-145 [facility] Comment on above: Performed By: #### B MP #### [facility] [address] [address] [address] Baldemar Rodriguez Urea nitrogen [Mass/Vol] 19.0 mg/dL Critically high 7.0-18.0 [facility] Comment on above: Performed By: #### B MP #### [facility] [address] [place] [address] Dr. Baldemar Rodriguez Urea nitrogen/Creatinine [Mass ratio] 20.9 mg/mg Normal [facility] Comment on above: Performed By: #### B MP #### [facility] [address] [place] [address] Dr. Baldemar Rodriguez CBC AUTO DIFFon 03-25-2022 BASO # 0.0 103/ul Normal 0.0-0.1 [facility] Comment on above: Performed By: #### B MP #### [facility] [address] [place] [address] Dr. Baldemar Rodriguez Basophils/100 WBC (Bld) 0.5 % Normal 0.2-2.0 [facility] Comment on above: Performed By: #### B MP #### [facility] [address] [place] [address] Dr. Baldemar Rodriguez EO # 0.3 103/ul Normal 0.0-0.7 [facility] Comment on above: Performed By: #### B MP #### [facility] [address] [place] [address] Dr. Baldemar Rodriguez Eosinophils/100 WBC (Bld) 3.2 % Normal 0.9-7.0 [facility] Comment on above: Performed By: #### B MP #### [facility] [address] [place] [address] Dr. Baldemar Rodriguez Erythrocyte distribution width (RBC) [Ratio] 14.7 % Normal 11.0-15.0 [facility] Comment on above: Performed By: #### B MP #### [facility] [address] [place] [address] Dr. Baldemar Rodriguez Hematocrit (Bld) [Volume fraction] 40.8 % Normal 36.0-48.0 [facility] Comment on above: Performed By: #### B MP #### [facility] [address] [place] [address] Dr. Baldemar Rodriguez Hemoglobin (Bld) [Mass/Vol] 13.4 g/dL Normal 12.0-16.0 [facility] Comment on above: Performed By: #### B MP #### [facility] [address] [place] [address] Dr. Baldemar Rodriguez IG # 0.02 10e3/ul Normal 0.00-0.03 [facility] Comment on above: Performed By: #### B MP #### [facility] [address] [place] [address] Dr. Baldemar Rodriguez IG % 0.2 % Normal 0.0-0.5 [facility] Comment on above: Performed By: #### B MP #### [facility] [address] [place] [address] Dr. Baldemar Rodriguez LYMPH # 2.0 103/ul Normal 1.2-3.8 [facility] Comment on above: Performed By: #### B MP #### [facility] [address] [place] [address] Dr. Baldemar Rodriguez Lymphocytes/100 WBC (Bld) 23.3 % Normal 20.5-60.0 [facility] Comment on above: Performed By: #### B MP #### [facility] [address] [place] [address] Dr. Baldemar Rodriguez MANUAL DIFF REQ NO Normal [facility] Comment on above: Performed By: #### B MP #### [facility] [address] [place] [address] Dr. Baldemar Rodriguez MCH (RBC) [Entitic mass] 30.3 pg Normal 26.7-34.0 [facility] Comment on above: Performed By: #### B MP #### [facility] [address] [place] [address] Dr. Baldemar Rodriguez MCHC (RBC) [Mass/Vol] 32.8 g/dL Normal 29.9-35.2 [facility] Comment on above: Performed By: #### B MP #### [facility] [address] [place] [address] Dr. Baldemar Rodriguez MCV (RBC) [Entitic vol] 92.3 fL Normal 81.0-99.0 [facility] Comment on above: Performed By: #### B MP #### [facility] [address] [place] [address] Dr. Baldemar Rodriguez MONO # 0.6 103/ul Normal 0.3-0.8 [facility] Comment on above: Performed By: #### B MP #### [facility] [address] [place] [address] Dr. Baldemar Rodriguez Monocytes/100 WBC (Bld) 7.5 % Normal 1.7-12.0 [facility] Comment on above: Performed By: #### B MP #### [facility] [address] [place] [address] Dr. Baldemar Rodriguez NEUT # 5.5 103/ul Normal 1.4-6.5 [facility] Comment on above: Performed By: #### B MP #### [facility] [address] [place] [address] Dr. Baldemar Rodriguez Neutrophils/100 WBC (Bld) 65.3 % Normal 43.0-75.0 [facility] Comment on above: Performed By: #### B MP #### [facility] [address] [place] [address] Dr. Baldemar Rodriguez Platelet mean volume (Bld) [Entitic vol] 9.4 fL Critically low 9.5-13.5 [facility] Comment on above: Performed By: #### B MP #### [facility] [address] [place] [address] Dr. Baldemar Rodriguez PLT 258 103/ul Normal 150-450 [facility] Comment on above: Performed By: #### B MP #### [facility] [address] [place] [address] Dr. Baldemar Rodriguez RBC 4.42 106/ul Normal 4.20-5.40 [facility] Comment on above: Performed By: #### B MP #### [facility] [address] [place] [address] Dr. Baldemar Rodriguez WBC 8.4 103/ul Normal 4.0-11.0 [facility] Comment on above: Performed By: #### B MP #### [facility] [address] [address] [address] Baldemar Rodriguez POTASSIUMon 03-25-2022 Potassium [Moles/Vol] 2.7 mmol/L Critically low 3.5-5.1 [facility] Comment on above: Performed By: #### B MP #### [facility] [address] [place] [address] Dr. Baldemar Rodriguez PROF CHEM 8 (BAS METB)on Anion gap [Moles/Vol] 9.8 mmol/L Normal [facility] Comment on above: Performed By: #### B MP #### [facility] [address] [address] [address] Baldemar Rodriguez Calcium [Mass/Vol] 9.0 mg/dL Normal 8.5-10.1 [facility] Comment on above: Performed By: #### B MP #### [facility] [address] [place] [address] Dr. Baldemar Rodriguez Chloride [Moles/Vol] 100 mmol/L Normal 98-107 [facility] Comment on above: Performed By: #### B MP #### [facility] [address] [address] [address] Baldemar Rodriguez CO2 [Moles/Vol] 35.8 mmol/L Critically high 21.0-32.0 [facility] Comment on above: Performed By: #### B MP #### [facility] [address] [place] [address] Dr. Baldemar Rodriguez Creatinine [Mass/Vol] 0.85 mg/dL Normal 0.55-1.02 [facility] Comment on above: Performed By: #### B MP #### [facility] [address] [place] [address] Dr. Baldemar Rodriguez EGFR-AF VIET[place]ESE >60 Normal >=60 [facility] Comment on above: Performed By: #### B MP #### [facility] [address] [place] [address] Dr. Baldemar Rodriguez EGFR-NON AF VIET[place]ESE >60 Normal >=60 [facility] Comment on above: Performed By: #### B MP #### [facility] [address] [address] [address] Baldemar Rodriguez Glucose [Mass/Vol] 100 mg/dL Normal 74-106 [facility] Comment on above: Performed By: #### B MP #### [facility] [address] [address] [address] Baldemar Rodriguez Potassium [Moles/Vol] 2.5 mmol/L Critically low 3.5-5.1 [facility] Comment on above: Performed By: #### B MP #### [facility] [address] [address] [address] Baldemar Rodriguez Sodium [Moles/Vol] 142 mmol/L Normal 136-145 [facility] Comment on above: Performed By: #### B MP #### [facility] [address] [address] [address] Baldemar Rodriguez Urea nitrogen [Mass/Vol] 15.0 mg/dL Normal 7.0-18.0 [facility] Comment on above: Performed By: #### B MP #### [facility] [address] [address] [address] Baldemar Rodriguez Urea nitrogen/Creatinine [Mass ratio] 17.6 mg/mg Normal [facility] Comment on above: Performed By: #### B MP #### [facility] [address] [address] [address] Baldemar Rodriguez CBC AUTO DIFFon 03-24-2022 BASO # 0.0 103/ul Normal 0.0-0.1 [facility] Comment on above: Performed By: #### C MP, CMADM, BNP #### [facility] [address] [address] [address] Baldemar Rodriguez Basophils/100 WBC (Bld) 0.4 % Normal 0.2-2.0 [facility] Comment on above: Performed By: #### C MP, CMADM, BNP #### [facility] [address] [address] [address] Baldemar Rodriguez EO # 0.1 103/ul Normal 0.0-0.7 [facility] Comment on above: Performed By: #### C MP, CMADM, BNP #### [facility] [address] [place] [address] Dr. Baldemar Rodriguez Eosinophils/100 WBC (Bld) 1.2 % Normal 0.9-7.0 [facility] Comment on above: Performed By: #### C MP, CMADM, BNP #### [facility] [address] [place] [address] Dr. Baldemar Rodriguez Erythrocyte distribution width (RBC) [Ratio] 14.9 % Normal 11.0-15.0 [facility] Comment on above: Performed By: #### C MP, CMADM, BNP #### [facility] [address] [place] [address] Dr. Baldemar Rodriguez Hematocrit (Bld) [Volume fraction] 36.3 % Normal 36.0-48.0 [facility] Comment on above: Performed By: #### C MP, CMADM, BNP #### [facility] [address] [place] [address] Dr. Baldemar Rodriguez Hemoglobin (Bld) [Mass/Vol] 11.9 g/dL Critically low 12.0-16.0 [facility] Comment on above: Performed By: #### C MP, CMADM, BNP #### [facility] [address] [place] [address] Dr. Baldemar Rodriguez IG # 0.04 10e3/ul Critically high 0.00-0.03 [facility] Comment on above: Performed By: #### C MP, CMADM, BNP #### [facility] [address] [place] [address] Dr. Baldemar Rodriguez IG % 0.4 % Normal 0.0-0.5 [facility] Comment on above: Performed By: #### C MP, CMADM, BNP #### [facility] [address] [place] [address] Dr. Baldemar Rodriguez LYMPH # 2.5 103/ul Normal 1.2-3.8 [facility] Comment on above: Performed By: #### C MP, CMADM, BNP #### [facility] [address] [place] [address] Dr. Baldemar Rodriguez Lymphocytes/100 WBC (Bld) 22.3 % Normal 20.5-60.0 [facility] Comment on above: Performed By: #### C MP, CMADM, BNP #### [facility] [address] [place] [address] Dr. Baldemar Rodriguez MANUAL DIFF REQ NO Normal [facility] Comment on above: Performed By: #### C MP, CMADM, BNP #### [facility] [address] [place] [address] Dr. Baldemar Rodriguez MCH (RBC) [Entitic mass] 30.4 pg Normal 26.7-34.0 [facility] Comment on above: Performed By: #### C MP, CMADM, BNP #### [facility] [address] [place] [address] Dr. Baldemar Rodriguez MCHC (RBC) [Mass/Vol] 32.8 g/dL Normal 29.9-35.2 [facility] Comment on above: Performed By: #### C MP, CMADM, BNP #### [facility] [address] [place] [address] Dr. Baldemar Rodriguez MCV (RBC) [Entitic vol] 92.6 fL Normal 81.0-99.0 [facility] Comment on above: Performed By: #### C MP, CMADM, BNP #### [facility] [address] [place] [address] Dr. Baldemar Rodriguez MONO # 0.7 103/ul Normal 0.3-0.8 [facility] Comment on above: Performed By: #### C MP, CMADM, BNP #### [facility] [address] [place] [address] Dr. Baldemar Rodriguez Monocytes/100 WBC (Bld) 6.1 % Normal 1.7-12.0 [facility] Comment on above: Performed By: #### C MP, CMADM, BNP #### [facility] [address] [place] [address] Dr. Baldemar Rodriguez NEUT # 7.7 103/ul Critically high 1.4-6.5 [facility] Comment on above: Performed By: #### C MP, CMADM, BNP #### [facility] [address] [place] [address] Dr. Baldemar Rodriguez Neutrophils/100 WBC (Bld) 69.6 % Normal 43.0-75.0 [facility] Comment on above: Performed By: #### C MP CMADM, BNP #### [facility] [address] [place] [address] Dr. Baldemar Rodriguez Platelet mean volume (Bld) [Entitic vol] 9.5 fL Normal 9.5-13.5 [facility] Comment on above: Performed By: #### C MP CMADM, BNP #### [facility] [address] [place] [address] Dr. Baldemar Rodriguez PLT 237 103/ul Normal 150-450 [facility] Comment on above: Performed By: #### C MP CMADM, BNP #### [facility] [address] [place] [address] Dr. Baldemar Rodriguez RBC 3.92 106/ul Critically low 4.20-5.40 [facility] Comment on above: Performed By: #### C LUIS A CMADM, BNP #### [facility] [address] [place] [address] Dr. Baldemar Rodriguez WBC 11.0 103/ul Normal 4.0-11.0 [facility] Comment on above: Performed By: #### C MP, CMADM, BNP #### [facility] [address] [place] [address] Dr. Baldemar Rodriguez PROF CHEM 8 (BAS METB)on Anion gap [Moles/Vol] 11.5 mmol/L Normal [facility] Comment on above: Performed By: #### B MP #### [facility] [address] [place] [address] Dr. Baldemar Rodriguez Calcium [Mass/Vol] 9.2 mg/dL Normal 8.5-10.1 [facility] Comment on above: Performed By: #### B MP #### [facility] [address] [address] [address] Baldemar Rodriguez Chloride [Moles/Vol] 106 mmol/L Normal 98-107 [facility] Comment on above: Performed By: #### B MP #### [facility] [address] [address] [address] Baldemar Rodriguez CO2 [Moles/Vol] 29.8 mmol/L Normal 21.0-32.0 [facility] Comment on above: Performed By: #### B MP #### [facility] [address] [address] [address] Baldemar Rodriguez Creatinine [Mass/Vol] 0.81 mg/dL Normal 0.55-1.02 [facility] Comment on above: Performed By: #### B MP #### [facility] [address] [address] [address] Baldemar Rodriguez EGFR-AF VIET[place]ESE >60 Normal >=60 [facility] Comment on above: Performed By: #### B MP #### [facility] [address] [address] [address] Baldemar Rodriguez EGFR-NON AF VIET[place]ESE >60 Normal >=60 [facility] Comment on above: Performed By: #### B MP #### [facility] [address] [address] [address] Baldemar Rodriguez Glucose [Mass/Vol] 102 mg/dL Normal 74-106 [facility] Comment on above: Performed By: #### B MP #### [facility] [address] [address] [address] Baldemar Rodriguez Potassium [Moles/Vol] 3.3 mmol/L Critically low 3.5-5.1 [facility] Comment on above: Performed By: #### B MP #### [facility] [address] [place] [address] Dr. Baldemra Rodriguez Sodium [Moles/Vol] 144 mmol/L Normal 136-145 [facility] Comment on above: Performed By: #### B MP #### [facility] [address] [address] [address] Baldemar Rodriguez Urea nitrogen [Mass/Vol] 17.0 mg/dL Normal 7.0-18.0 [facility] Comment on above: Performed By: #### B MP #### [facility] [address] [place] [address] Dr. Baldemar Rodriguez Urea nitrogen/Creatinine [Mass ratio] 21.0 mg/mg Normal [facility] Comment on above: Performed By: #### B MP #### [facility] [address] [place] [address] Dr. Baldemar Rodriguez CBC AUTO DIFFon 03-23-2022 BASO # 0.0 103/ul Normal 0.0-0.1 [facility] Comment on above: Performed By: #### C BC #### [facility] [address] [place] [address] Dr. Baldemar Rodriguez Basophils/100 WBC (Bld) 0.0 % Critically low 0.2-2.0 [facility] Comment on above: Performed By: #### C BC #### [facility] [address] [place] [address] Dr. Baldemar Rodriguez EO # 0.0 103/ul Normal 0.0-0.7 [facility] Comment on above: Performed By: #### C BC #### [facility] [address] [place] [address] Dr. Baldemar Rodriguez Eosinophils/100 WBC (Bld) 0.0 % Critically low 0.9-7.0 [facility] Comment on above: Performed By: #### C BC #### [facility] [address] [place] [address] Dr. Baldemar Rodriguez Erythrocyte distribution width (RBC) [Ratio] 14.6 % Normal 11.0-15.0 [facility] Comment on above: Performed By: #### C BC #### [facility] [address] [place] [address] Dr. Baldemar Rodriguez Hematocrit (Bld) [Volume fraction] 34.1 % Critically low 36.0-48.0 [facility] Comment on above: Performed By: #### C BC #### [facility] [address] [place] [address] Dr. Baldemar Rodriguez Hemoglobin (Bld) [Mass/Vol] 11.0 g/dL Critically low 12.0-16.0 [facility] Comment on above: Performed By: #### C BC #### [facility] [address] [place] [address] Dr. Baldemar Rodriguez IG # 0.03 10e3/ul Normal 0.00-0.03 [facility] Comment on above: Performed By: #### C BC #### [facility] [address] [place] [address] Dr. Baldemar Rodriguez IG % 0.7 % Critically high 0.0-0.5 [facility] Comment on above: Performed By: #### C BC #### [facility] [address] [place] [address] Dr. Baldemar Rodriguez LYMPH # 0.9 103/ul Critically low 1.2-3.8 [facility] Comment on above: Performed By: #### C BC #### [facility] [address] [place] [address] Dr. Baldemar Rodriguez Lymphocytes/100 WBC (Bld) 20.7 % Normal 20.5-60.0 [facility] Comment on above: Performed By: #### C BC #### [facility] [address] [place] [address] Dr. Baldemar Rodriguez MANUAL DIFF REQ NO Normal [facility] Comment on above: Performed By: #### C BC #### [facility] [address] [place] [address] Dr. Baldemar Rodriguez MCH (RBC) [Entitic mass] 30.5 pg Normal 26.7-34.0 [facility] Comment on above: Performed By: #### C BC #### [facility] [address] [place] [address] Dr. Baldemar Rodriguez MCHC (RBC) [Mass/Vol] 32.3 g/dL Normal 29.9-35.2 [facility] Comment on above: Performed By: #### C BC #### [facility] [address] [place] [address] Dr. Baldemar Rodriguez MCV (RBC) [Entitic vol] 94.5 fL Normal 81.0-99.0 [facility] Comment on above: Performed By: #### C BC #### [facility] [address] [address] [address] Baldemar Rodriguez MONO # 0.2 103/ul Critically low 0.3-0.8 [facility] Comment on above: Performed By: #### C BC #### [facility] [address] [address] [address] Baldemar Rodriguez Monocytes/100 WBC (Bld) 4.5 % Normal 1.7-12.0 [facility] Comment on above: Performed By: #### C BC #### [facility] [address] [place] [address] Dr. Baldemar Rodriguez NEUT # 3.2 103/ul Normal 1.4-6.5 [facility] Comment on above: Performed By: #### C BC #### [facility] [address] [place] [address] Dr. Baldemar Rodriguez Neutrophils/100 WBC (Bld) 74.1 % Normal 43.0-75.0 [facility] Comment on above: Performed By: #### C BC #### [facility] [address] [place] [address] Dr. Baldemar Rodriguez Platelet mean volume (Bld) [Entitic vol] 9.7 fL Normal 9.5-13.5 [facility] Comment on above: Performed By: #### C BC #### [facility] [address] [place] [address] Dr. Baldemar Rodriguez PLT 181 103/ul Normal 150-450 [facility] Comment on above: Performed By: #### C BC #### [facility] [id number] Baldemar Rodriguez RBC 3.61 106/ul Critically low 4.20-5.40 [facility] Comment on above: Performed By: #### C BC #### [facility] [address] [place] [address] Dr. Baldemar Rodriguez WBC 4.3 103/ul Normal 4.0-11.0 [facility] Comment on above: Performed By: #### C BC #### [facility] [address] [address] [address] Baldemar Rodriguez CTA CHEST WO W [...] by: MED TUTTLE Date: 2022-03-23 15:31 Normal [facility] GLYCOHEMOGLOBIN A1Con 2022 ADA RECOMMENDATION SEE BELOW Normal [facility] Comment on above: Result Comment: ADA RECOMMENDED LIMIT 4.0 - 6.0 ADA THERAPEUTIC TARGET < 7.0 ACTION SUGGESTED > 7.0 Performed By: #### B MP #### [facility] [address] [address] [address] Baldemar Rodriguez Glucose [Mass/Vol] 114 mg/dL Normal [facility] Comment on above: Performed By: #### B MP #### [facility] [address] [place] [address] Dr. Baldemar Rodriguez HbA1c (Bld) [Mass fraction] 5.6 % Normal 4.5-6.2 [facility] Comment on above: Performed By: #### B MP #### [facility] [facility] [address] [place] [address] Dr. Baldemar Rodriguez MAGNESIUMon 03-23-2022 Magnesium [Mass/Vol] 1.7 mg/dL Critically low 1.8-2.4 [facility] Comment on above: Performed By: #### B MP #### [facility] [address] [place] [address] Dr. Baldemar Rodriguez PROF CHEM 8 (BAS METB)on Anion gap [Moles/Vol] 11.7 mmol/L Normal [facility] Comment on above: Performed By: #### C MP, CMADM, BNP #### [facility] [address] [place] [address] Dr. Baldemar Rodriguez Calcium [Mass/Vol] 9.0 mg/dL Normal 8.5-10.1 [facility] Comment on above: Performed By: #### C MP, CMADM, BNP #### [facility] [address] [place] [address] Dr. Baldemar Rodriguez Chloride [Moles/Vol] 103 mmol/L Normal 98-107 [facility] Comment on above: Performed By: #### C MP, CMADM, BNP #### [facility] [address] [place] [address] Dr. Baldemar Rodriguez CO2 [Moles/Vol] 28.6 mmol/L Normal 21.0-32.0 [facility] Comment on above: Performed By: #### C MP, CMADM, BNP #### [facility] [address] [place] [address] Dr. Baldemar Rodriguez Creatinine [Mass/Vol] 0.83 mg/dL Normal 0.55-1.02 [facility] Comment on above: Performed By: #### C MP, CMADM, BNP #### [facility] [address] [address] [address] Baldemar Rodriguez EGFR-AF VIETNAMESE >60 Normal >=60 [facility] Comment on above: Performed By: #### C MP, CMADM, BNP #### [facility] [address] [address] [address] Baldemar Rodriguez EGFR-NON AF VIETNAMESE >60 Normal >=60 [facility] Comment on above: Performed By: #### C MP, CMADM, BNP #### [facility] [address] [address] [address] Baldemar Rodriguez Glucose [Mass/Vol] 115 mg/dL Critically high 74-106 [facility] Comment on above: Performed By: #### C MP, CMADM, BNP #### [facility] [address] [address] [address] Baldemar Rodriguez Potassium [Moles/Vol] 3.3 mmol/L Critically low 3.5-5.1 [facility] Comment on above: Performed By: #### C MP, CMADM, BNP #### [facility] [address] [address] [address] Baldemar Rodriguez Sodium [Moles/Vol] 140 mmol/L Normal 136-145 [facility] Comment on above: Performed By: #### C MP, CMADM, BNP #### [facility] [address] [address] [address] Baldemar Rodriguez Urea nitrogen [Mass/Vol] 14.0 mg/dL Normal 7.0-18.0 [facility] Comment on above: Performed By: #### C MP, CMADM, BNP #### [facility] [address] [address] [address] Baldemar Rodriguez Urea nitrogen/Creatinine [Mass ratio] 16.9 mg/mg Normal [facility] Comment on above: Performed By: #### C MP, CMADM, BNP #### [facility] [address] [address] [address] Baldemar Rodriguez TSHon 03-23-2022 TSH 0.588 uIU/mL Normal 0.358-3.740 [facility] Comment on above: Performed By: #### M G, TSH #### [facility] [address] [place] [address] Dr. Baldemar Rodriguez BNPon 03-22-2022 Natriuretic peptide B (Bld) [Mass/Vol] 2517.0 pg/mL Critically high <=900.0 [facility] Comment on above: Performed By: #### C MP, CMADM, BNP #### [facility] [address] [place] [address] Dr. Baldemar Rodriguez CARDIAC FREYA ADMITon 023 CK [Catalytic activity/Vol] 33 U/L Normal 26-192 [facility] Comment on above: Performed By: #### C MP, CMADM, BNP #### [facility] [address] [place] [address] Dr. Baldemar Rodriguez CK.MB [Mass/Vol] ng/mL Normal <=3.60 [facility] Comment on above: Performed By: #### C MP, CMADM, BNP #### [facility] [address] [place] [address] Dr. Baldemar Rodriguez HSTROP 11.9 pg/mL Normal 4.0-51.3 [facility] Comment on above: Result Comment: CUT- OFF POINTS HAVE BEEN ESTABLISHED BASED ON THE FOURTH UNIVERSAL DEFINITIONS OF MYOCARDIAL INFARCTION. THE UPPER REFERENCE LIMIT (URL) OF TROPONIN, DEFINED THE 99TH PERCENTILE OF cTnI DISTRIBUTION IN A REFERENCE POPULATION, HAS BEEN CONFIRMED THE DECISION THRESHOLD FOR ME DIAGNOSIS. Performed By: #### C MP, CMADM, BNP #### [facility] [address] [place] [address] Dr. Baldemar Rodriguez EMILY 29 ng/mL Normal 9-82 [facility] Comment on above: Performed By: #### C MP, CMADM, BNP #### [facility] [address] [place] [address] Dr. Baldemar Rodriguez CBC AUTO DIFFon 03-22-2022 BASO # 0.1 103/ul Normal 0.0-0.1 [facility] Comment on above: Performed By: #### C MP, CMADM, BNP #### [facility] [address] [place] [address] Dr. Baldemar Rodriguez Basophils/100 WBC (Bld) 0.8 % Normal 0.2-2.0 [facility] Comment on above: Performed By: #### C MP, CMADM, BNP #### [facility] [address] [place] [address] Dr. Baldemar Rodriguez EO # 0.1 103/ul Normal 0.0-0.7 [facility] Comment on above: Performed By: #### C MP, CMADM, BNP #### [facility] [address] [place] [address] Dr. Baldemar Rodriguez Eosinophils/100 WBC (Bld) 2.2 % Normal 0.9-7.0 [facility] Comment on above: Performed By: #### C MP, CMADM, BNP #### [facility] [address] [place] [address] Dr. Baldemar Rodriguez Erythrocyte distribution width (RBC) [Ratio] 15.1 % Critically high 11.0-15.0 [facility] Comment on above: Performed By: #### C MP, CMADM, BNP #### [facility] [address] [place] [address] Dr. Baldemar Rodriguez Hematocrit (Bld) [Volume fraction] 39.2 % Normal 36.0-48.0 [facility] Comment on above: Performed By: #### C MP, CMADM, BNP #### [facility] [address] [place] [address] Dr. Baldemar Rodriguez Hemoglobin (Bld) [Mass/Vol] 12.6 g/dL Normal 12.0-16.0 [facility] Comment on above: Performed By: #### C MP, CMADM, BNP #### [facility] [address] [place] [address] Dr. Baldemar Rodriguez IG # 0.02 10e3/ul Normal 0.00-0.03 [facility] Comment on above: Performed By: #### C MP, CMADM, BNP #### [facility] [address] [place] [address] Dr. Baldemar Rodriguez IG % 0.3 % Normal 0.0-0.5 [facility] Comment on above: Performed By: #### C MP, CMADM, BNP #### [facility] [address] [place] [address] Dr. Baldemar Rodriguez LYMPH # 1.6 103/ul Normal 1.2-3.8 [facility] Comment on above: Performed By: #### C MP, CMADM, BNP #### [facility] [address] [place] [address] Dr. Baldemar Rodriguez Lymphocytes/100 WBC (Bld) 27.3 % Normal 20.5-60.0 [facility] Comment on above: Performed By: #### C MP, CMADM, BNP #### [facility] [address] [place] [address] Dr. Baldemar Rodriguez MANUAL DIFF REQ NO Normal [facility] Comment on above: Performed By: #### C MP, CMADM, BNP #### [facility] [address] [place] [address] Dr. Baldemar Rodriguez MCH (RBC) [Entitic mass] 30.4 pg Normal 26.7-34.0 [facility] Comment on above: Performed By: #### C MP, CMADM, BNP #### [facility] [address] [place] [address] Dr. Baldemar Rodriguez MCHC (RBC) [Mass/Vol] 32.1 g/dL Normal 29.9-35.2 [facility] Comment on above: Performed By: #### C MP, CMADM, BNP #### [facility] [address] [place] [address] Dr. Baldemar Rodriguez MCV (RBC) [Entitic vol] 94.5 fL Normal 81.0-99.0 [facility] Comment on above: Performed By: #### C MP, CMADM, BNP #### [facility] [address] [place] [address] Dr. Baldemar Rodriguez MONO # 0.5 103/ul Normal 0.3-0.8 [facility] Comment on above: Performed By: #### C MP, CMADM, BNP #### [facility] [address] [address] [address] Baldemar Rodriguez Monocytes/100 WBC (Bld) 8.0 % Normal 1.7-12.0 [facility] Comment on above: Performed By: #### C MP, CMADM, BNP #### [facility] [address] [address] [address] Baldemar Rodriguez NEUT # 3.7 103/ul Normal 1.4-6.5 [facility] Comment on above: Performed By: #### C MP, CMADM, BNP #### [facility] [address] [address] [address] Baldemar Rodriguez Neutrophils/100 WBC (Bld) 61.4 % Normal 43.0-75.0 [facility] Comment on above: Performed By: #### C MP, CMADM, BNP #### [facility] [address] [address] [address] Baldemar Rodriguez Platelet mean volume (Bld) [Entitic vol] 9.4 fL Critically low 9.5-13.5 [facility] Comment on above: Performed By: #### C MP, CMADM, BNP #### [facility] [address] [place] [address] Dr. Baldemar Rodriguez PLT 226 103/ul Normal 150-450 [facility] Comment on above: Performed By: #### C MP, CMADM, BNP #### [facility] [address] [address] [address] Baldemar Rodriguez RBC 4.15 106/ul Critically low 4.20-5.40 [facility] Comment on above: Performed By: #### C MP, CMADM, BNP #### [facility] [address] [address] [address] Baldemar Rodriguez WBC 6.0 103/ul Normal 4.0-11.0 [facility] Comment on above: Performed By: #### C MP, CMADM, BNP #### [facility] [address] [address] [address] Baldemar Rodriguez Covid-19 PCR (CVDTB)on 03-13 SARS-CoV-2 (COVID-19) RNA BOLIVAR+probe Ql (Unsp spec) Not detected Normal NOT DETECTED [facility] Comment on above: Result Comment: When [...] for this test is supported by the [place] T[employer] of Health and Human Service's declaration that [...] By: #### C MP, CMADM, BNP #### [facility] [address] [place] [address] Dr. Baldemar Rodriguez D-DIMERon 03-22-2022 D-DIMER 0.75 mg/L FEU Critically high <=0.59 [facility] Comment on above: Performed By: #### C MP, CMADM, BNP #### [facility] [address] [place] [address] Dr. Baldemar Rodriguez D-DIMER COMMENTS SEE BELOW Normal [facility] Comment on above: Result Comment: Incr eases [...] By: #### C MP, CMADM, BNP #### [facility] [address] [place] [address] Dr. Baldemar Rodriguez ECHOCARDIO M/2D COMPLETEon 0 03-22-2022 ECHOCARDIO M/2D COMPLETE Patient: PENNY DIANE Exam Date: 03/22/2022 : 1950 Gender:F Ordering : SHAIKH Chu LOJA . Admission #: [id number] Family : DR TY THOMAS D.O. Order #: [id number] CLICK HERE TO VIEW EXAM ECHOCARDIOGRAM REPORT [...] M.D. on 03/22/2022 at 16:57 Normal [facility] PROF 14(COMP METB)on 023 Albumin [Mass/Vol] 3.4 g/dL Normal 3.4-5.0 [facility] Comment on above: Performed By: #### C MP, CMADM, BNP #### [facility] [address] [address] [address] Baldemar Rodriguez Albumin/Globulin [Mass ratio] 0.8 {ratio} Normal [facility] Comment on above: Performed By: #### C MP, CMADM, BNP #### [facility] [address] [address] [address] Baldemar Rodriguez ALP [Catalytic activity/Vol] 124 U/L Critically high 46-116 [facility] Comment on above: Performed By: #### C MP, CMADM, BNP #### [facility] [address] [address] [address] Baldemar Rodriguez ALT [Catalytic activity/Vol] 30 U/L Normal 14-59 [facility] Comment on above: Performed By: #### C MP, CMADM, BNP #### [facility] [address] [place] [address] Dr. Baldemar Rodriguez Anion gap [Moles/Vol] 12.0 mmol/L Normal [facility] Comment on above: Performed By: #### C MP, CMADM, BNP #### [facility] [address] [address] [address] Baldemar Rodriguez AST [Catalytic activity/Vol] 30 U/L Normal 15-37 [facility] Comment on above: Performed By: #### C MP, CMADM, BNP #### [facility] [address] [address] [address] Baldemar Rodriguez Bilirubin [Mass/Vol] 0.9 mg/dL Normal 0.2-1.0 [facility] Comment on above: Performed By: #### C MP, CMADM, BNP #### [facility] [address] [address] [address] Baldemar Rodriguez Calcium [Mass/Vol] 9.4 mg/dL Normal 8.5-10.1 [facility] Comment on above: Performed By: #### C MP, CMADM, BNP #### [facility] [address] [address] [address] Baldemar Rodriguez Chloride [Moles/Vol] 105 mmol/L Normal 98-107 [facility] Comment on above: Performed By: #### C MP, CMADM, BNP #### [facility] [address] [address] [address] Baldemar Rodriguez CO2 [Moles/Vol] 30.8 mmol/L Normal 21.0-32.0 [facility] Comment on above: Performed By: #### C MP, CMADM, BNP #### [facility] [address] [address] [address] Baldemar Rodriguez Creatinine [Mass/Vol] 0.79 mg/dL Normal 0.55-1.02 [facility] Comment on above: Performed By: #### C MP, CMADM, BNP #### [facility] [address] [address] [address] Baldemar Rodriguez EGFR-AF VIETNAMESE >60 Normal >=60 [facility] Comment on above: Performed By: #### C MP, CMADM, BNP #### [facility] [address] [address] [address] Baldemar Rodriguez EGFR-NON AF VIETNAMESE >60 Normal >=60 [facility] Comment on above: Performed By: #### C MP, CMADM, BNP #### [facility] [address] [address] [address] Baldemar Rodriguez Globulin (S) [Mass/Vol] 4.3 g/dL Normal [facility] Comment on above: Performed By: #### C MP, CMADM, BNP #### [facility] [address] [address] [address] Baldemar Rodriguez Glucose [Mass/Vol] 115 mg/dL Critically high 74-106 [facility] Comment on above: Performed By: #### C MP, CMADM, BNP #### [facility] [address] [address] [address] Baldemar Rodriguez Potassium [Moles/Vol] 3.8 mmol/L Normal 3.5-5.1 [facility] Comment on above: Performed By: #### C MP, CMADM, BNP #### [facility] [address] [address] [address] Baldemar Rodriguez Protein [Mass/Vol] 7.7 g/dL Normal 6.4-8.2 [facility] Comment on above: Performed By: #### C MP, CMADM, BNP #### [facility] [address] [address] [address] Baldemar Rodriguez Sodium [Moles/Vol] 144 mmol/L Normal 136-145 [facility] Comment on above: Performed By: #### C MP, CMADM, BNP #### [facility] [address] [address] [address] Baldemar Rodriguez Urea nitrogen [Mass/Vol] 11.0 mg/dL Normal 7.0-18.0 [facility] Comment on above: Performed By: #### C MP, CMADM, BNP #### [facility] [address] [place] [address] Dr. Baldemar Rodriguez Urea nitrogen/Creatinine [Mass ratio] 13.9 mg/mg Normal [facility] Comment on above: Performed By: #### C MP, CMADM, BNP #### [facility] [address] [place] [address] Dr. Baldemar Rodriguez XR CHEST 1 Von [...] by: ANNITA BRAN Date: 2022-03-22 12:45 Normal [facility] XR CHEST 2 Von 01-22-2022 XR CHEST [...] by: HALIE NICK Date: 2022-01-22 15:48 Normal [facility] A1C HEMOGLOBINon 11-08-2021 HbA1c (Bld) [Mass fraction] 5.6 % [employer] Other HbA1c (Bld) [Mass fraction]o n 11-08-2021 A1C HEMOGLOBIN [facility] [employer] Other ECHOCARDIO M/2D COMPLETEon 0 08-15-2021 ECHOCARDIO M/2D COMPLETE Patient: PENNY DIANE Exam Date: 08/15/2021 : 1950 Gender:F Ordering : REGINO HERNADEZ Admission #: [id number] Family : DR TY THOMAS D.O. Order #: [id number] CLICK HERE TO VIEW EXAM ECHOCARDIOGRAM REPORT [...] Lofton M.D. on 08/15/2021 at 16:14 Normal [facility] BASIC METABOLIC PANELon Calcium [Mass/Vol] 9.9 mg/dL Normal 8.6-10.3 [facility] Comment on above: Performed By: #### 0 0071 #### [facility] [address] [facility] [place] [address], [facility] Chloride [Moles/Vol] 105 mmol/L Normal 98-107 [facility] Comment on above: Performed By: #### 0 [id number] #### [facility] [address] [facility] [place] [address], [facility] CO2 [Moles/Vol] 30 mmol/L Normal 21-31 [facility] Comment on above: Performed By: #### 0 0071 #### [facility] [address] [facility] [place] [address], [facility] Creatinine [Mass/Vol] 1.25 mg/dL High 0.60-1.20 [facility] Comment on above: Performed By: #### 0 0071 #### [facility] [address] [place] [address], [facility] eGFR- 51 ml/min/1.73sq m Abnormal >60 The [facility] Comment on above: Result Comment: Calc ulation may not be valid for patients over 70 years Performed By: #### 0 [id number] #### [facility] [address] [place] [address], [facility] eGFR- non- 42 ml/min/1.73sq m Abnormal >60 [facility] Comment on above: Result Comment: Calc ulation may not be valid for patients over 70 years Performed By: #### 0 [id number] #### [facility] [address] [place] [address], [facility] Glucose [Mass/Vol] 96 mg/dL Normal 70-100 The [facility] Comment on above: Performed By: #### 0 0071 #### [facility] [address] [place] [address], [facility] Potassium [Moles/Vol] 3.9 mmol/L Normal 3.5-5.1 [facility] Comment on above: Performed By: #### 0 0071 #### [facility] [address] [place] [address], [place] Sodium [Moles/Vol] 143 mmol/L Normal 136-145 [facility] Comment on above: Performed By: #### 0 0071 #### [facility] [address] [place] [address], [place] Urea nitrogen [Mass/Vol] 25 mg/dL Normal 7-25 [facility] Comment on above: Performed By: #### 0 0071 #### [facility] [address] CBC COMPLETE BLOOD COUNTon 0 07-11-2021 Erythrocyte distribution width (RBC) [Ratio] 13.9 % Normal 11.5-15.0 [facility] Comment on above: Performed By: #### 5 0608 #### [facility] [address] Hematocrit (Bld) [Volume fraction] 41.6 % Normal 36.0-45.0 [facility] Comment on above: Performed By: #### 5 0608 #### [facility] [address] Hemoglobin (Bld) [Mass/Vol] 13.5 g/dL Normal 12.0-15.0 [facility] Comment on above: Performed By: #### 5 0608 #### [facility] [address] MCH (RBC) [Entitic mass] 31.3 pg Normal 27.0-33.0 [facility] Comment on above: Performed By: #### 5 0608 #### [facility] [address] MCHC (RBC) [Mass/Vol] 32.5 g/dL Normal 32.0-35.0 [facility] Comment on above: Performed By: #### 5 0608 #### [facility] [address] MCV (RBC) [Entitic vol] 96.5 fL Normal 82.0-98.0 [facility] Comment on above: Performed By: #### 5 0608 #### [facility] [address] [place] [address], [facility] Nucleated RBC/100 WBC (Bld) [Ratio] 0 % Normal 0-0 [facility] Comment on above: Performed By: #### 5 [id number] #### [facility] [address] [facility] [place], [place] [id number] [place] [address] PLAT CNT 219 10*3/uL Normal 150-400 [facility] Comment on above: Performed By: #### 5 [id number] #### [facility] [address] [place] [address], [facility] RBC (Bld) [#/Vol] 4.31 10*6/uL Normal 3.80-5.00 [facility] Comment on above: Performed By: #### 5 0608 #### [facility] [address] [place] [address], [facility] WBC (Bld) [#/Vol] 5.29 10*3/uL Normal 4.00-10.60 [facility] Comment on above: Performed By: #### 5 0608 #### [facility] [address] Cardiovascular Lab Reporton 07-11-2021 Cardiovascular Lab Report [facility] Patient Name: Frank[facility] MR #: [id number] Physician: Regino Hernadez MD Department of Service Date: 07/11/2021 Medicine Birthdate: 1950 Division of Room #: Cardiology Adult Cardiovascular Services [place] [address] Cardiovascular Laboratory Report ATRIAL FIBRILLATION ABLATION PROCEDURE [...] I decided to interrogate the pulmonary veins. [id number] Heparin bolus was given followed by additional [...] and (more content not included)... Normal [facility]12 SARS-CoV-2 (COVID-19) RNA BOLIVAR+probe Ql (Unsp spec) Not detected Normal NOT DETECTED [facility] Comment on above: Result Comment: This test is not yet approved or cleared by the [place] FDA. When there are no FDA-approved or cleared tests available, and other criteria are met, FDA can make tests available under an emergency access mechanism called an Emergency Use Authorization (EUA). The EUA for this test is supported by the [place] of Health and Human Service's (HHS's) declaration [...] SARS-CoV-2. Performed By: #### C VDTBH #### [facility] [address] [place] [address] Dr. Baldemar Rodriguez HEMOGRAM AND PLATELon 2021 Hematocrit (Bld) [Volume fraction] 40.9 % Normal 36.0-48.0 [facility] Comment on above: Performed By: #### C MP, CMADM, BNP #### [facility] [address] [place] [address] Dr. Baldemar Rodriguez Hemoglobin (Bld) [Mass/Vol] 12.9 g/dL Normal 12.0-16.0 [facility] Comment on above: Performed By: #### C MP, CMADM, BNP #### [facility] [address] [place] [address] Dr. Baldemar Rodriguez MCH (RBC) [Entitic mass] 30.9 pg Normal 26.7-34.0 [facility] Comment on above: Performed By: #### C MP, CMADM, BNP #### [facility] [address] [place] [address] Dr. Baldemar Rodriguez MCHC (RBC) [Mass/Vol] 31.5 g/dL Normal 29.9-35.2 [facility] Comment on above: Performed By: #### C MP, CMADM, BNP #### [facility] [address] [place] [address] Dr. Baldemar Rodriguez MCV (RBC) [Entitic vol] 98.1 fL Normal 81.0-99.0 [facility] Comment on above: Performed By: #### C MP, CMADM, BNP #### [facility] [address] [place] [address] Dr. Baldemar Rodriguez PLT 258 103/ul Normal 150-450 [facility] [facility] Comment on above: Performed By: #### C MP, CMADM, BNP #### [facility] [address] [place] [address] Dr. Baldemar Rodriguez RBC 4.17 106/ul Critically low 4.20-5.40 [facility] Comment on above: Performed By: #### C MP, CMADM, BNP #### [facility] [address] [place], [place] [address] Dr. Baldemar Rodriguez WBC 5.0 103/ul Normal 4.0-11.0 [facility] Comment on above: Performed By: #### C MP, CMADM, BNP #### [facility] [address] [place], [place] [address] Dr. Baldemar Rodriguez BASIC METABOLIC PANELon 04-0 Calcium [Mass/Vol] 8.0 mg/dL Low 8.6-10.3 [facility] Comment on above: Order Comment: No: D o not add to previous draw Performed By: #### 0 0071 #### [facility] [address] [place] [address], [facility] Chloride [Moles/Vol] 105 mmol/L Normal 98-107 The [facility] Comment on above: Order Comment: No: D o not add to previous draw Performed By: #### 0 0071 #### [facility] [address] [place] [address], [place] CO2 [Moles/Vol] 26 mmol/L Normal 21-31 [facility] Comment on above: Order Comment: No: D o not add to previous draw Performed By: #### 0 0071 #### [facility] [address] [place] [address], [place] Creatinine [Mass/Vol] 0.77 mg/dL Normal 0.60-1.20 [facility] Comment on above: Order Comment: No: D o not add to previous draw Performed By: #### 0 0071 #### [facility] [address] [place] [address], [place] GFR/1.73 sq M.predicted among blacks MDRD (S/P/Bld) [Vol rate/Area] mL/min/{1.73_m2} Normal >60 [facility] Comment on above: Order Comment: No: D o not add to previous draw Result Comment: Calc ulation may not be valid for patients over 70 years Performed By: #### 0 0071 #### [facility] [address] [place] [address], [facility] GFR/1.73 sq M.predicted among non-blacks MDRD (S/P/Bld) [Vol rate/Area] mL/min/{1.73_m2} Normal >60 [facility] Comment on above: Order Comment: No: D o not add to previous draw Result Comment: Calc ulation may not be valid for patients over 70 years Performed By: #### 0 0071 #### [facility] [address] [place] [address], [facility] Glucose [Mass/Vol] 89 mg/dL Normal 70-100 [facility] Comment on above: Order Comment: No: D o not add to previous draw Performed By: #### 0 0071 #### [facility] [address] [place] [address], [facility] Potassium [Moles/Vol] 2.8 mmol/L Low 3.5-5.1 [facility] Comment on above: Order Comment: No: D o not add to previous draw Performed By: #### 0 0071 #### [facility] [address] [place] [address], [place] Sodium [Moles/Vol] 140 mmol/L Normal 136-145 The [facility] Comment on above: Order Comment: No: D o not add to previous draw Performed By: #### 0 0071 #### [facility] [address] [place] [address], [place] Urea nitrogen [Mass/Vol] 11 mg/dL Normal 7-25 [facility] Comment on above: Order Comment: No: D o not add to previous draw Performed By: #### 0 0071 #### [facility] [address] [place] [address], [place] CBC W/DIFFon 05-18-2021 ABS IMM GRANS 0.0 10*3/uL Normal 0.0-0.2 The [facility] Comment on above: Order Comment: No: D o not add to previous draw Performed By: #### 5 0103 #### [facility] [address] [place] [address], [facility] ABS NEUTROPHILS 2.6 10*3/uL Normal 1.6-7.6 The [facility] Comment on above: Order Comment: No: D o not add to previous draw Performed By: #### 5 0103 #### [facility] [address] [place] [address], [facility] Basophils (Bld) [#/Vol] 0.0 10*3/uL Normal 0.0-0.2 [facility] Comment on above: Order Comment: No: D o not add to previous draw Performed By: #### 5 0103 #### [facility] [address] [place] [address], [facility] Basophils/100 WBC (Bld) 0.6 % Normal 0.0-1.0 [facility] Comment on above: Order Comment: No: D o not add to previous draw Performed By: #### 5 0103 #### [facility] [address] [place] [address], [facility] Eosinophils (Bld) [#/Vol] 0.1 10*3/uL Normal 0.0-0.5 [facility] Comment on above: Order Comment: No: D o not add to previous draw Performed By: #### 5 0103 #### [facility] [address] [place] [id number], [facility] Eosinophils/100 WBC (Bld) 2.9 % Normal 0.0-6.0 [facility] Comment on above: Order Comment: No: D o not add to previous draw Performed By: #### 5 0103 #### [facility] [address] Erythrocyte distribution width (RBC) [Ratio] 12.9 % Normal 11.5-15.0 [facility] Comment on above: Order Comment: No: D o not add to previous draw Performed By: #### 5 0103 #### [facility] [address] [place] [address], [facility] Hematocrit (Bld) [Volume fraction] 33.0 % Low 36.0-45.0 [facility] Comment on above: Order Comment: No: D o not add to previous draw Performed By: #### 5 0103 #### [facility] [address] [place] [address], [facility] Hemoglobin (Bld) [Mass/Vol] 10.7 g/dL Low 12.0-15.0 [facility] Comment on above: Order Comment: No: D o not add to previous draw Performed By: #### 5 0103 #### [facility] [address] [place] [address], [facility] IMMATURE GRANS 0.2 % Normal 0.0-1.0 The [facility] Comment on above: Order Comment: No: D o not add to previous draw Performed By: #### 5 0103 #### [facility] [address] [place] [address], [facility] Lymphocytes (Bld) [#/Vol] 1.5 10*3/uL Normal 1.2-4.0 [facility] Comment on above: Order Comment: No: D o not add to previous draw Performed By: #### 5 0103 #### [facility] [address] [place] [address], [facility] Lymphocytes/100 WBC (Bld) 31.0 % Normal 20.0-45.0 [facility] Comment on above: Order Comment: No: D o not add to previous draw Performed By: #### 5 3 #### [facility] [address] [place] [address], [facility] MCH (RBC) [Entitic mass] 32.0 pg Normal 27.0-33.0 [facility] Comment on above: Order Comment: No: D o not add to previous draw Performed By: #### 5 0103 #### [facility] [address] [place] [id number], [facility] MCHC (RBC) [Mass/Vol] 32.4 g/dL Normal 32.0-35.0 [facility] Comment on above: Order Comment: No: D o not add to previous draw Performed By: #### 5 0103 #### [facility] [address] [place] [id number], [facility] MCV (RBC) [Entitic vol] 98.8 fL High 82.0-98.0 [facility] Comment on above: Order Comment: No: D o not add to previous draw Performed By: #### 5 0103 #### [facility] [address] [place] [id number], [facility] Monocytes (Bld) [#/Vol] 0.6 10*3/uL Normal 0.1-1.0 [facility] Comment on above: Order Comment: No: D o not add to previous draw Performed By: #### 5 0103 #### [facility] [address] [place] [address], [facility] MONOS 11.9 % Normal 5.0-12.0 [facility] Comment on above: Order Comment: No: D o not add to previous draw Performed By: #### 5 0103 #### [facility] [address] [place] [id number], [facility] Neutrophils/100 WBC (Bld) 53.4 % Normal 40.0-72.0 [facility] Comment on above: Order Comment: No: D o not add to previous draw Performed By: #### 5 3 #### [facility] [address] [place] [id number], [facility] Nucleated RBC/100 WBC (Bld) [Ratio] 0 % Normal 0-0 [facility] Comment on above: Order Comment: No: D o not add to previous draw Performed By: #### 5 0103 #### [facility] [address] [place] [address], [facility] PLAT CNT 179 10*3/uL Normal 150-400 The [facility] Comment on above: Order Comment: No: D o not add to previous draw Performed By: #### 5 0103 #### [facility] [address] [place] [address], [facility] RBC (Bld) [#/Vol] 3.34 10*6/uL Low 3.80-5.00 The [facility] Comment on above: Order Comment: No: D o not add to previous draw Performed By: #### 5 0103 #### [facility] [address] [place] [address], [facility] WBC (Bld) [#/Vol] 4.87 10*3/uL Normal 4.00-10.60 The [facility] Comment on above: Order Comment: No: D o not add to previous draw Performed By: #### 5 0103 #### [facility] [address] POTASSIUM BLOODon 05-18-2021 Potassium [Moles/Vol] 3.7 mmol/L Normal 3.5-5.1 [facility] Comment on above: Order Comment: No: D o not add to previous draw Performed By: #### 4 1406 #### [facility] [address] Cardiovascular Lab Reporton 05-17-2021 Cardiovascular Lab Report [facility] Patient Name: [facility] MR #: [id number] Department of Physician: Regino Hernadez MD Medicine Service Date: 05/17/2021 Division of Birthdate: 1950 Cardiology Room #: CC Adult Cardiovascular Services [facility] [address]ha Alonzo [place], [place] [address] Cardiovascular Laboratory Report ATRIAL FIBRILLATION ABLATION PROCEDURE [...] EZ clot. Esophagus was mapped using the [employer] 3D mapping software and noted to be [...] was (more content not included)... Normal [facility] POC GLUCOSE LABon 05-17-2021 Glucose [Mass/Vol] 92 mg/dL Normal 70-100 The [facility] Comment on above: Performed By: #### 8 3089 #### [facility] [address] [place] [address], [facility] BASIC METABOLIC PANELon 03-3 Calcium [Mass/Vol] 8.7 mg/dL Normal 8.6-10.3 [facility] Comment on above: Performed By: #### 0 0071 #### [facility] [address] [place] [address], [place] Chloride [Moles/Vol] 103 mmol/L Normal 98-107 [facility] Comment on above: Performed By: #### 0 0071 #### [facility] [address] [place] [address], [place] CO2 [Moles/Vol] 26 mmol/L Normal 21-31 [facility] Comment on above: Performed By: #### 0 0071 #### [facility] [address] [place] [address], [place] Creatinine [Mass/Vol] 0.86 mg/dL Normal 0.60-1.20 [facility] Comment on above: Performed By: #### 0 0071 #### [facility] [address] [place] [address], [place] GFR/1.73 sq M.predicted among blacks MDRD (S/P/Bld) [Vol rate/Area] mL/min/{1.73_m2} Normal >60 [facility] Comment on above: Result Comment: Calc ulation may not be valid for patients over 70 years Performed By: #### 0 0071 #### [facility] [address] [place] [address], [place] GFR/1.73 sq M.predicted among non-blacks MDRD (S/P/Bld) [Vol rate/Area] mL/min/{1.73_m2} Normal >60 [facility] Comment on above: Result Comment: Calc ulation may not be valid for patients over 70 years Performed By: #### 0 0071 #### [facility] [address] [place] [address], [place] Glucose [Mass/Vol] 84 mg/dL Normal 70-100 The [facility] Comment on above: Performed By: #### 0 0071 #### [facility] [address] [place] [address], [place] Potassium [Moles/Vol] 4.0 mmol/L Normal 3.5-5.1 [facility] Comment on above: Performed By: #### 0 0071 #### [facility] [address] [place] [address], [place] Sodium [Moles/Vol] 137 mmol/L Normal 136-145 The [facility] Comment on above: Performed By: #### 0 0071 #### [facility] [address] [place] [address], [place] Urea nitrogen [Mass/Vol] 19 mg/dL Normal 7-25 [facility] Comment on above: Performed By: #### 0 0071 #### [facility] [address] [place] [address], [facility] CTA CHESTon 05-10-2021 CTA CHEST [facility] Department of Radiology [address] [place] [id number] Patient Name: PENNY DIANE : 1950 [...] dictation.} Electronically signed: Charlie Prince. Transcribed by: [email or web address], User Resident: Electronically Signed by: CHARLIE PRINCE @ 05/14/2021 11:31 AM Normal [facility] Comment on above: Order Comment: , abl ation 05/17/21 , ablation 05/17/21 , , , Ordering Provider - REGINO HERNADEZ MD , HEMATOCRITon 05-10-2021 Hematocrit (Bld) [Volume fraction] 36.0 % Normal 36.0-45.0 [facility] Comment on above: Performed By: #### 8 5499 #### [facility] [address] [facility]. [address] HEMOGLOBINon 05-10-2021 Hemoglobin (Bld) [Mass/Vol] 12.2 g/dL Normal 12.0-15.0 [facility] Comment on above: Performed By: #### 8 5499 #### [facility] [address] WBC, WHITE BLOOD CELL COUNTo n 05-10-2021 WBC (Bld) [#/Vol] 4.81 10*3/uL Normal 4.00-10.60 The [facility] Comment on above: Performed By: #### 8 5499 #### [facility] [address] [place] [address], [facility] XR WRIST RIGHT (MIN 3 [...] Gorge Key MD 06/05/18 Final result Normal [facility] Vital Signs Date Time Vital Sign Value Performing Clinician Facility 12-30-2023 11:14-0500 Body height 165.1 cm [facility] 12-30-2023 11:14-0500 Body mass index (BMI) [Ratio] 29.3 kg/m2 [facility] 12-30-2023 11:14-0500 Body temperature 97.5 [degF] [facility] 12-30-2023 11:14-0500 Body weight 80 kg [facility] 12-30-2023 11:14-0500 Diastolic blood pressure 82 mm[Hg] [facility] 12-30-2023 11:14-0500 Heart rate 82 /min [facility] 12-30-2023 11:14-0500 SaO2% (BldA) [Mass fraction] 97 % [facility] 12-30-2023 11:14-0500 Systolic blood pressure 136 mm[Hg] [facility] 12-23-2023 10:56-0500 Body height 165.1 cm [facility] 12-23-2023 10:56-0500 Body mass index (BMI) [Ratio] 29 kg/m2 [facility] 12-23-2023 10:56-0500 Body weight 79.06 kg [facility] 12-23-2023 10:56-0500 Diastolic blood pressure 89 mm[Hg] [facility] 12-23-2023 10:56-0500 Heart rate 71 /min [facility] 12-23-2023 10:56-0500 Respiratory rate 18 /min [facility] 12-23-2023 10:56-0500 SaO2% (BldA) [Mass fraction] 98 % [facility] 12-23-2023 10:56-0500 Systolic blood pressure 145 mm[Hg] [facility] 10-28-2023 13:26-0400 Body height 165.1 cm [facility] 10-28-2023 13:26-0400 Body mass index (BMI) [Ratio] 29.2 kg/m2 [facility] 10-28-2023 13:26-0400 Body weight 79.6 kg [facility] 10-28-2023 13:26-0400 Diastolic blood pressure 86 mm[Hg] [facility] 10-28-2023 13:26-0400 Heart rate 70 /min [facility] 10-28-2023 13:26-0400 Respiratory rate 18 /min [facility] 10-28-2023 13:26-0400 SaO2% (BldA) [Mass fraction] 99 % [facility] 10-28-2023 13:26-0400 Systolic blood pressure 132 mm[Hg] [facility] 08-28-2023 10:32-0400 Body height 165.1 cm [facility] 08-28-2023 10:32-0400 Body mass index (BMI) [Ratio] 29.6 kg/m2 [facility] 08-28-2023 10:32-0400 Body weight 80.73 kg [facility] 08-28-2023 10:32-0400 Diastolic blood pressure 70 mm[Hg] [facility] 08-28-2023 10:32-0400 Heart rate 70 /min [facility] 08-28-2023 10:32-0400 SaO2% (BldA) [Mass fraction] 98 % [facility] 08-28-2023 10:32-0400 Systolic blood pressure 118 mm[Hg] [facility] 08-26-2023 13:33-0400 Body height 165.1 cm [facility] 08-26-2023 13:33-0400 Body mass index (BMI) [Ratio] 29.9 kg/m2 [facility] 08-26-2023 13:33-0400 Body weight 81.7 kg [facility] 08-26-2023 13:33-0400 Diastolic blood pressure 89 mm[Hg] [facility] 08-26-2023 13:33-0400 Heart rate 70 /min [facility] 08-26-2023 13:33-0400 Respiratory rate 18 /min [facility] 08-26-2023 13:33-0400 SaO2% (BldA) [Mass fraction] 98 % [facility] 08-26-2023 13:33-0400 Systolic blood pressure 140 mm[Hg] [facility] 03-13-2023 14:00-0500 Body height 165.1 cm Joaquín Maria Other [facility] [employer] Other 03-13-2023 14:00-0500 Body mass index (BMI) [Ratio] 29.15 kg/m2 Joaquín Maria Other [employer] [facility] [employer] Other 03-13-2023 14:00-0500 Body weight 79.47 kg Joaquín Maria Other [employer] Other 03-13-2023 14:00-0500 Diastolic blood pressure 77 mm[Hg] Joaquín Maria Other [employer] Other 03-13-2023 14:00-0500 Respiratory rate 18 /min Joaquín Maria Other [employer] Other 03-13-2023 14:00-0500 SaO2% (BldA) [Mass fraction] 99 % Joaquín Maria Other [employer] Other 03-13-2023 14:00-0500 Systolic blood pressure 122 mm[Hg] Joaquín Maria Other [employer] Other 03-04-2023 14:00-0500 Body height 165.1 cm Med Briggs Other [employer] Other 03-04-2023 14:00-0500 Body mass index (BMI) [Ratio] 29.04 kg/m2 [facility] Other [employer] Other 03-04-2023 14:00-0500 Body weight 79.15 kg Med Sundeep Other [employer] Other 03-04-2023 14:00-0500 Diastolic blood pressure 70 mm[Hg] [facility] Brig[facility] Other [employer] Other 03-04-2023 14:00-0500 SaO2% (BldA) [Mass fraction] 95 % [facility] Sundeep Other [employer] Other 03-04-2023 14:00-0500 Systolic blood pressure 111 mm[Hg] Med Brig[facility] Other [employer] Other 12-04-2022 13:15-0400 Body height 165.1 cm Viviana Williamson Other [employer] Other 11-21-2022 13:00-0400 Body height 165.1 cm Joaquín Maria Other [employer] Other 11-21-2022 13:00-0400 Body mass index (BMI) [Ratio] 28.19 kg/m2 Joaquín Maria Other [employer] Other 11-21-2022 13:00-0400 Body weight 76.84 kg Joaquín Maria Other [employer] Other 11-21-2022 13:00-0400 Diastolic blood pressure 73 mm[Hg] Joaquín Crow Other [facility] [employer] Other 11-21-2022 13:00-0400 Respiratory rate 18 /min Joaquínnick Crewsdiff Other [place] [employer] Other 11-21-2022 13:00-0400 SaO2% (BldA) [Mass fraction] 98 % Joaquínnick Crewsdiff Other [place] [employer] Other 11-21-2022 13:00-0400 Systolic blood pressure 120 mm[Hg] Joaquín Crewsdiff Other [place] [employer] Other 09-17-2022 13:45-0400 Body height 165.1 cm Joaquín Maria Other Not Available 09-17-2022 13:45-0400 Body mass index (BMI) [Ratio] 28.84 kg/m2 Joaquínnick Crewsdiff Other Not Available 09-17-2022 13:45-0400 Body weight 78.61 kg Joaquín Crewsdiff Other Not Available 09-17-2022 13:45-0400 Diastolic blood pressure 74 mm[Hg] Joaquínnick Crewsdiff Other Not Available 09-17-2022 13:45-0400 Respiratory rate 18 /min Joaquínnick Crewsdiff Other Not Available 09-17-2022 13:45-0400 SaO2% (BldA) [Mass fraction] 98 % Joaquínnick Crewsdiff Other Not Available 09-17-2022 13:45-0400 Systolic blood pressure 109 mm[Hg] Joaquín Crow Other Not Available 08-06-2022 13:00-0400 Body height 165.1 cm Joaquín Crow Other [employer] Other 08-06-2022 13:00-0400 Body mass index (BMI) [Ratio] 28.27 kg/m2 Joaquín Maria Other [employer] Other 08-06-2022 13:00-0400 Body weight 77.07 kg Joaquín Maria Other [employer] Other 08-06-2022 13:00-0400 Diastolic blood pressure 83 mm[Hg] Joaquín Maria Other [employer] Other 08-06-2022 13:00-0400 Respiratory rate 18 /min Joaquín Maria Other [employer] Other 08-06-2022 13:00-0400 SaO2% (BldA) [Mass fraction] 94 % Joaquín Maria Other [employer] Other 08-06-2022 13:00-0400 Systolic blood pressure 129 mm[Hg] Joaquín Maria Other [employer] Other 04-18-2022 13:15-0500 Body height 165.1 cm Joaquín Maria Other [employer] Other 04-18-2022 13:15-0500 Body mass index (BMI) [Ratio] 28.6 kg/m2 Joaquín Maria Other [employer] Other 04-18-2022 13:15-0500 Body weight 77.97 kg Joaquín Crewsdiff Other [employer] Other 04-18-2022 13:15-0500 Diastolic blood pressure 74 mm[Hg] Joaquín Maria Other [employer] Other 04-18-2022 13:15-0500 Respiratory rate 18 /min Joaquín Maria Other [employer] Other 04-18-2022 13:15-0500 SaO2% (BldA) [Mass fraction] 99 % Joaquín Crewsdiff Other [employer] Other 04-18-2022 13:15-0500 Systolic blood pressure 106 mm[Hg] Joaquín Crewsdiff Other [employer] Other 01-10-2022 14:45-0500 Body height 165.1 cm Viviana Williamson Other [employer] Other 12-04-2021 14:30-0400 Body height 165.1 cm Joaquín Maria Other [employer] Other 12-04-2021 14:30-0400 Body mass index (BMI) [Ratio] 27.34 kg/m2 Joaquín Crewsdiff Other [employer] Other 12-04-2021 14:30-0400 Body weight 74.53 kg Joaquín Maria Other [employer] Other 12-04-2021 14:30-0400 Diastolic blood pressure 72 mm[Hg] Joaquín Crewsdiff Other [employer] Other 12-04-2021 14:30-0400 Respiratory rate 18 /min Joaquín Crewsdiff Other [employer] Other 12-04-2021 14:30-0400 SaO2% (BldA) [Mass fraction] 99 % Joaquín Maria Other [employer] Other 12-04-2021 14:30-0400 Systolic blood pressure 112 mm[Hg] Joaquín Crewsdiff Other [employer] Other 11-08-2021 14:45-0400 Body height 165.1 cm Joaquín Maria Other [employer] Other 11-08-2021 14:45-0400 Body mass index (BMI) [Ratio] 27.47 kg/m2 Joaquín Maria Other [employer] Other 11-08-2021 14:45-0400 Body weight 74.89 kg Joaquín Maria Other [employer] Other 11-08-2021 14:45-0400 Diastolic blood pressure 112 mm[Hg] Joaquín Crewsdiff Other [employer] Other 11-08-2021 14:45-0400 Respiratory rate 18 /min Joaquín Maria Other [employer] Other 11-08-2021 14:45-0400 SaO2% (BldA) [Mass fraction] 99 % Joaquínnick Crewsdiff Other [employer] Other 11-08-2021 14:45-0400 Systolic blood pressure 160 mm[Hg] Joaquínnick Crewsdiff Other [employer] Other 09-27-2021 15:45-0400 Body height 165.1 cm Joaquín Crewsdiff Other [employer] Other 09-27-2021 15:45-0400 Body mass index (BMI) [Ratio] 28.6 kg/m2 Joaquín Maria Other [employer] Other 09-27-2021 15:45-0400 Body weight 77.96 kg Joaquín Crewsdiff Other [employer] Other 09-27-2021 15:45-0400 Diastolic blood pressure 71 mm[Hg] Joaquín Crewsdiff Other [employer] Other 09-27-2021 15:45-0400 Respiratory rate 18 /min Joaquín Maria Other [employer] Other 09-27-2021 15:45-0400 SaO2% (BldA) [Mass fraction] 100 % Joaquín Maria Other [employer] Other 09-27-2021 15:45-0400 Systolic blood pressure 123 mm[Hg] Joaquín Maria Other [employer] Other 08-16-2021 15:00-0400 Body height 165.1 cm Viviana Jefferst Other [employer] Other 08-16-2021 15:00-0400 Body mass index (BMI) [Ratio] 30.13 kg/m2 Viviana Fitt Other [employer] Other 08-16-2021 15:00-0400 Body weight 82.15 kg Viviana Fitt Other [employer] Other 06-26-2021 15:00-0400 Body height 165.1 cm Viviana Fitt Other [employer] Other 06-26-2021 15:00-0400 Body mass index (BMI) [Ratio] 30.85 kg/m2 Viviana Fitt Other [employer] Other 06-26-2021 15:00-0400 Body weight 84.1 kg Viviana Fitt Other [employer] Other 05-15-2021 16:45-0400 Body height 165.1 cm Joaquín Maria Other [employer] Other 05-15-2021 16:45-0400 Body mass index (BMI) [Ratio] 32.45 kg/m2 Joaquín Maria Other [employer] Other 05-15-2021 16:45-0400 Body weight 88.45 kg Joaquín Maria Other [employer] Other 05-15-2021 16:45-0400 Diastolic blood pressure 65 mm[Hg] Joaquín Maria Other [employer] Other 05-15-2021 16:45-0400 Respiratory rate 16 /min Joaquín Maria Other [employer] Other 05-15-2021 16:45-0400 SaO2% (BldA) [Mass fraction] 98 % Joaquín Maria Other [employer] Other 05-15-2021 16:45-0400 Systolic blood pressure 113 mm[Hg] Joaquín Maria Other [employer] Other 04-19-2021 14:45-0500 Body height 165.1 cm Viviana Fitt Other [employer] Other 04-19-2021 14:45-0500 Body mass index (BMI) [Ratio] 32.5 kg/m2 Viviana Fitt Other [employer] Other 04-19-2021 14:45-0500 Body weight 88.59 kg Viviana Fitt Other [employer] Other 04-09-2021 16:45-0500 Body height 165.1 cm Joaquín Maria Other [employer] Other 04-09-2021 16:45-0500 Body mass index (BMI) [Ratio] 32.53 kg/m2 Joaquín Maria Other [employer] Other 04-09-2021 16:45-0500 Body weight 88.68 kg Joaquín Maria Other [employer] Other 04-09-2021 16:45-0500 Diastolic blood pressure 68 mm[Hg] Joaquín Maria Other [employer] Other 04-09-2021 16:45-0500 Respiratory rate 18 /min Joaquín Maria Other [employer] Other 04-09-2021 16:45-0500 SaO2% (BldA) [Mass fraction] 100 % Joaquín Maria Other [employer] Other 04-09-2021 16:45-0500 Systolic blood pressure 115 mm[Hg] Joaquín Maria Other [facility] [employer] Other Encounters Encounter Date Encounter Type Care Provider Facility Start: 12-30-2023 End: 12-30-2023 ambulatory [facility] Work Phone: Start: 12-30-2023 End: 12-30-2023 Patient encounter procedure [facility] Work Phone: Start: 12-23-2023 End: 12-23-2023 ambulatory [facility] Work Phone: Start: 12-23-2023 End: 12-23-2023 Patient encounter procedure [facility] Work Phone: Start: 11-27-2023 End: 11-27-2023 ambulatory [facility] Start: 10-28-2023 End: 10-28-2023 ambulatory [facility] Work Phone: Start: 10-28-2023 End: 10-28-2023 Patient encounter procedure [facility] Work Phone: Start: 09-30-2023 End: 09-30-2023 ambulatory JACI [facility] Start: 08-28-2023 End: 08-28-2023 ambulatory [facility] Work Phone: Start: 08-28-2023 End: 08-28-2023 Patient encounter procedure [facility] Work Phone: Start: 08-26-2023 End: 08-26-2023 ambulatory [facility] Work Phone: Start: 08-26-2023 End: 08-26-2023 Patient encounter procedure [facility] Work Phone: Start: 04-22-2023 End: 04-22-2023 ambulatory [facility] Start: 04-09-2023 End: 04-09-2023 ambulatory ELIAS DOMINGO Not Available Start: 03-25-2023 End: 03-25-2023 ambulatory JIMI [facility] Start: 03-13-2023 Follow-up encounter [facility]ín [facility] Start: 03-13-2023 End: 03-13-2023 ambulatory Joaquín Maria [employer] Other Start: 03-05-2023 Telephone encounter Elias Domingo DO Work Phone: [facility] Start: 03-04-2023 End: 03-04-2023 Patient encounter procedure DO Ty House Work Phone: [facility] Work Phone: Start: 03-04-2023 End: 03-04-2023 ambulatory DO Ty House Work Phone: [facility] Work Phone: Start: 03-04-2023 Office outpatient ne w 60 minutes Med Brig[facility] Start: 01-09-2023 Registered Recurring DO Jr s House Work Phone: [facility] Work Phone: Start: 01-09-2023 End: 01-09-2023 Patient encounter procedure DO Ty House Work Phone: [facility] Work Phone: Start: 12-04-2022 (Joiner Helper) Joiner Helper Viviana [facility] Start: 12-04-2022 End: 12-04-2022 ambulatory Viviana Williamson Other [employer] Other Start: 11-21-2022 End: 11-21-2022 ambulatory Joaquín Maria Other [employer] Other Start: 11-21-2022 Follow-up encounter [facility] Start: 11-19-2022 End: 11-19-2022 ambulatory Joaquín Maria Other [employer] Other Start: 11-19-2022 Telephone encounter [facility]ín [facility] Start: 09-17-2022 End: 09-17-2022 ambulatory Joaquín Maria Other Not Available Start: 09-17-2022 Follow-up encounter Joqauín [facility] Start: 08-06-2022 End: 08-06-2022 ambulatory Joaquín Maria Other [employer] Other Start: 08-06-2022 Follow-up encounter Joaquín [facility] Start: 06-19-2022 End: 06-20-2022 ambulatory JIMI THOMPSON Facility:[facility] Start: 04-24-2022 End: 04-24-2022 ambulatory Viviana Williamson Other [employer] Other Start: 04-24-2022 Telephone encounter Viviana [facility] Start: 04-18-2022 End: 04-18-2022 ambulatory Joaquín Maria Other [employer] Other Start: 04-18-2022 Follow-up encounter [facility]aquín [facility] Start: 04-11-2022 (Joiner Helper) Joiner Helper Viviana Clay [facility] Start: 04-11-2022 End: 04-11-2022 ambulatory Viviana Williamson Other [employer] Other Start: 04-10-2022 End: 04-11-[address] TY THOMAS Facility:[facility] Start: 03-22-2022 End: 03-26-2022 Evaluation and management of inpatient DR TY THOMAS Facility:[facility] Start: 01-22-2022 End: 01-23-2022 ambulatory REGINO HERNADEZ Facility:[facility] Start: 01-10-2022 End: 01-10-2022 ambulatory Viviana Clay Other [employer] Other Start: 01-10-2022 IBT for Obesity subQ 15 min (Max charge 2 units) Viviana Williamson [facility] Start: 12-04-2021 End: 12-04-2021 ambulatory Joaquín Maria Other [employer] Other Start: 12-04-2021 Follow-up encounter Joaquín Crewsdipablo [facility] Start: 11-08-2021 End: 11-08-2021 ambulatory Joaquín Maria Other [employer] Other Start: 11-08-2021 Follow-up encounter Joaquín Crow F [facility] Start: 10-09-2021 End: 10-10-2021 ambulatory JACI MARSH Facility:[facility] Start: 09-27-2021 End: 09-27-2021 ambulatory Joaquín Maria Other [employer] Other Start: 09-27-2021 Follow-up encounter Joaquín [facility] Start: 09-05-2021 End: 09-06-2021 ambulatory JACI SALMA Facility:[facility] Start: 08-24-2021 ambulatory ELANA ESTES Facility:[facility] 1 Start: 08-16-2021 ([facility] RD FU) [facility] F/ U Registerd Joiner Helper Viviana Williamson [facility] Start: 08-16-2021 End: 08-16-2021 ambulatory Vivianakristine Williamson Other [employer] Other Start: 08-15-2021 End: 08-16-2021 ambulatory REGINO METZGERCKO Facility:[facility] Start: 07-16-2021 Encounter for other preprocedural examination JACI MARSH [facility] Start: 07-16-2021 Encounter for preprocedural laboratory examination JACI MARSH [facility] Start: 07-11-2021 End: 07-12-2021 ambulatory REGINO HERNADEZ Facility:[facility] Start: 07-09-2021 End: 07-10-2021 ambulatory JACI MARSH Facility: Start: 07-09-2021 End: 07-10-2021 Encounter for other preprocedural examination JACI MARSH Facility: Start: 07-04-2021 End: 07-04-2021 ambulatory Joaquín Maria Other [employer] Other Start: 07-04-2021 Telephone encounter [facility]ín [facility] Start: 06-26-2021 ([facility] RD FU) [facility] F/ U Registerd Joiner Helper Viviana [facility] Start: 06-26-2021 End: 06-26-2021 ambulatory Viviana Williamson Other [employer] Other Start: 06-26-2021 Telephone encounter Joaquín [facility] Start: 06-04-2021 End: 06-04-2021 ambulatory Viviana Williamson Other [employer] Other Start: 06-04-2021 Telephone encounter Viviana [facility] Start: 05-28-2021 End: 05-28-2021 ambulatory Joaquín Maria Other [employer] Other Start: 05-28-2021 Telephone encounter Joaquín [facility] Start: 05-24-2021 End: 05-24-2021 ambulatory Viviana Williamson Other [employer] Other Start: 05-24-2021 Telephone encounter Viviana [facility] Start: 05-17-2021 End: 05-18-2021 ambulatory [facility] Facility:[facility] Start: 05-15-2021 End: 05-15-2021 ambulatory Joaquín Maria Other [employer] Other Start: 05-15-2021 Follow-up encounter [facility]ín [facility] Start: 05-09-2021 End: 05-09-2021 ambulatory Joaquín Maria Other [employer] Other Start: 05-09-2021 Telephone encounter Joaquín [facility] Start: 04-19-2021 ([facility]) [facility] Init ial Provider Viviana Williamson [facility] Start: 04-19-2021 End: 04-19-2021 ambulatory Viviana Williamson Other [employer] Other Start: 04-09-2021 End: 04-09-2021 ambulatory Joaquín Maria Other [employer] Other Start: 04-09-2021 Follow-up encounter Joaquín [facility] Start: 06-05-2018 End: 06-08-2018 Patient encounter procedure [facility] Procedures Date Procedure Procedure Detail Performing Clinician Start: 06-05-2018 Radex wrist complete minimum 3 views [facility] Plan of Treatment Date Care Activity Detail Author Start: 04-09-2023 End: 04-09-2023 Patient encounter procedure 04/09/2023 3:00 PM EST Office Visit [facility] [place] [address] [place] [id number] Elias Domingo DO [address] [place] [address] [facility] Start: 03-24-2023 Pneumococcal Vaccine: 65+ Years (2 - PCV) Pneumococcal Vaccine: 65+ Years (2 - PCV) [facility] Start: 10-11-2022 Influenza vaccination Influenza Vaccine (#1) [facility] Start: 1989 Screening for malignant neoplasm of breast Mammogram [facility] Start: 1950 Screening for malignant neoplasm of colon [facility] metabo lic 1999 panel - Serum or Plasma [facility] Comprehensive metabo lic 1999 panel - Serum or Plasma [facility] DXA Skeletal system. axial Views for bone density [facility] MG Breast - bilatera l Screening [facility] Immunizations Immunization Date Immunization Notes Care Provider Fa cility 03-24-2022 pneumococcal polysaccharide vaccine, 23 valent [facility] 01-01-2022 COVID-19 mRNA Bivale nt Booster (Moderna) [facility] 01-01-2022 Fluzone QIV High-Dos e 65YR+ [facility] 01-01-2022 zoster vaccine recombinant [facility] 01-01-2022 influenza virus vacc ine, unspecified formulation Elias Domingo DO Work Phone: [facility] 12-26-2020 COVID-19 mRNA, Comir joshua (Pfizer) [facility] 12-23-2020 zoster vaccine recombinant [facility] 05-11-2020 [facility] COVID-19 Vaccine Robbie ssen - Documentation Purposes Only Joaquín Maria Other [facility] Payers Date Payer Category Payer Private Health Insurance [id number] 2016 Medicare [id number] 1960 Medicare [id number] 2.1 [id number] 1959 Private Health Insurance [id number] 1959 Self-pay 1949 Unknown [id number] 2.16.8 [id number] 1949 Unknown [id number] 2.16.8 [id number] 1949 Unknown [id number] 2.16.8 [id number] 1949 Unknown [id number] 2.16.8 40.1.943504.3.579.2.647 1949 Unknown [id number] 2.16.84 0.1.977640.3.579.2.593 1949 Unknown [id number] 2.16.84 0.1.035227.3.579.2.593 1949 Unknown [id number] 2.16.84 0.1.998086.3.579.2.593 1949 Unknown [id number] 2.16.84 0.1.514247.3.579.2.593 1949 Unknown [id number] 2.16.84 0.1.372980.3.579.2.593 1949 Unknown [id number] 2.16.84 0.1.968061.3.579.2.593 1949 Unknown [id number] 2.16.84 0.1.936081.3.579.2.593 1949 Unknown [id number] 2.16.84 0.1.869200.3.579.2.593 1949 Unknown [id number] 2.16.84 0.1.221278.3.579.2.1259 Unknown [id number] 2.16.84 0.1.509501.3.579.2.593 Unknown [id number] 2.16.8 40.1.063864.3.579.2.531 Unknown [id number] 2.16.8 [id number] Social History Date Type Detail Facility Unknown if ever smoked [employer] Other Sex Assigned At [employer] Other Start: 1950 Sex Assigned At Female F [facility] Tobacco smoking status NHIS Tobacco smoking consumption unknown [facility] Start: 1950 Sex Assigned At Not on file N [facility] Start: 08-28-2023 End: 12-30-2023 Tobacco smoking status NHIS Ex-smoker (finding) [facility] Start: 12-23-2023 End: 12-30-2023 Sex Female (finding) [facility] Clinical Notes 04-09-2021 to 12-23-2023 Note Date & Type Note Facility 12-23-2023 Evaluation note Authored December 23, 2023 1:15pm Start weight: 199.7 lbs., sh e is down 25.2 lbs. today with a weight of 174.5 lbs. She is down 1.3 lbs. since her last visit on 10/28/2023. Starting waist circumference: 39.0 inches. Starting Date: 09/04/2020. Ozempic start date 08/23/2021. Ozempic start weight 184.5 pounds. She had to stop the Ozempic due to not covered by insurance. She felt it was helpful. Now on Semaglutide from [facility], down 10 lbs.. 1. Abnormal weight gain. Her mother has similar weight issues. 2. Obesity -improved with a greater than 10% weight loss since starting our program, but she was having significant weight regain until starting compounded semaglutide now to 0.3 mg dose. She had a trial off the medication with significant increase in appetite and now well-controlled without side effects. She has multiple serious weight related comorbidities that could benefit from healthy lifestyle change and weight loss. She is on Farxiga 10 mg now for her CHF. Farxiga can also help with diabetic prevention [...] fruits and vegetables. 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 The patient will treat with long-term lifestyle [...] would avoid stimulants. Recommend SGLT2 inhibitor. 6. Hypertension-controlled. We will treat with a low-salt diet, decreased processed and restaurant foods, healthy lifestyle changes and weight loss. Monitor. 7. Obstructive sleep apnea/[place] of 14/a.m. fatigue-treat with CPAP. We will [...] to prevent diabetes. 9. CKD 3-she will continue to increase her water intake. 10. Hypercholesterolemia-should be improving. She will continue to treat with decreasing the bad fats, added fats, increase activity and exercise and achieve long-term weight loss. 11. Metabolic syndrome-improving. Continue to treat with long-term healthy lifestyle changes, behavioral changes, nutritional changes, increased exercise and weight loss. Follow-up with me in 8 weeks. New labs needed: Because she has not had recent blood work I ordered a CMP, CBC, cholesterol profile, TSH and a hemoglobin A1c prior to her next visit. Author Joaquín Maria [facility] Authored October 28, 2023 1:11pm Start weight: 199.7 lbs., sh kathy is down 23.9 lbs. today with a weight of 175.8 lbs. She is down 4.4 lbs. since her last visit on 08/26/2023. Starting waist circumference: 39.0 inches. Starting Date: 09/04/2020. Ozempic start date 08/23/2021. Ozempic start weight 184.5 pounds. She had to stop the Ozempic due to not covered by insurance. She felt it was helpful. Now on Semaglutide from [facility], down 4.4 lbs.. 1. Abnormal weight gain. Her mother has similar weight issues. 2. Obesity -improved but she was having significant weight regain until starting compounded semaglutide. She had a trial off the medication with significant increase in appetite. She is now taking compounded semaglutide at 0.3 mg and she feels it is very helpful without side effects. Fortunately she is still down greater than 10% from her start weight. She has multiple serious weight related comorbidities that could benefit from healthy lifestyle change and weight loss. She is on Farxiga 10 mg now for her CHF. Farxiga can also help with diabetic prevention [...] fruits and vegetables. 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 The patient will treat with long-term lifestyle [...] and weight loss. Monitor. 7. Obstructive sleep apnea/[place] of 14/a.m. fatigue-treat with CPAP. We will [...] to prevent diabetes. 9. CKD 3-she will continue to increase her water intake. 10. Hypercholesterolemia-should be improving. She will continue to treat with decreasing the bad fats, added fats, increase activity and exercise and achieve long-term weight loss. 11. Metabolic syndrome-improving. Continue to treat with long-term healthy lifestyle changes, behavioral changes, nutritional changes, increased exercise and weight loss. Follow-up with me in 8 weeks. New labs needed: She will continue yearly blood work with her PCP. We will repeat A1c after 6 months in February 2024. She should continue regular blood work with her PCP and plaster maker. [facility] Work Phone: 1(464) 699-410209-17-2024 Evaluation note* Author Meronfarheen Mathis [facility] Authored December 23, 2023 11:14am Start weight: 199.7 lbs., olena chavez is down 25.2 lbs. today with a weight of 174.5 lbs. She is down 1.3 lbs. since her last visit on 10/28/2023. Starting waist circumference: 39.0 inches. Starting Date: 09/04/2020. Ozempic start date 08/23/2021. Ozempic start weight 184.5 pounds. She had to stop the Ozempic due to not covered by insurance. She felt it was helpful. Now on Semaglutide from [facility], down 10 lbs.. 1. Abnormal weight gain. Her mother has similar weight issues. 2. Obesity -improved but she was having significant weight regain until starting compounded semaglutide. She had a trial off the medication with significant increase in appetite. She is now taking compounded semaglutide at 0.3 mg and she feels it is very helpful without side effects. Fortunately she is still down greater than 10% from her start weight. She has multiple serious weight related comorbidities that could benefit from healthy lifestyle change and weight loss. She is on Farxiga 10 mg now for her CHF. Farxiga can also help with diabetic prevention [...] fruits and vegetables. 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 The patient will treat with long-term lifestyle [...] and weight loss. Monitor. 7. Obstructive sleep apnea/[place] of 14/a.m. fatigue-treat with CPAP. We will [...] to prevent diabetes. 9. CKD 3-she will continue to increase her water intake. 10. Hypercholesterolemia-should be improving. She will continue to treat with decreasing the bad fats, added fats, increase activity and exercise and achieve long-term weight loss. 11. Metabolic syndrome-improving. Continue to treat with long-term healthy lifestyle changes, behavioral changes, nutritional changes, increased exercise and weight loss. Follow-up with me in 8 weeks. New labs needed: She will continue yearly blood work with her PCP. We will repeat A1c after 6 months in February 2024. She should continue regular blood work with her PCP and plaster maker. Author Joaquín Crow [facility] Authored October 28, 2023 1:11pm Start weight: 199.7 lbs., olena chavez is down 23.9 lbs. today with a weight of 175.8 lbs. She is down 4.4 lbs. since her last visit on 08/26/2023. Starting waist circumference: 39.0 inches. Starting Date: 09/04/2020. Ozempic start date 08/23/2021. Ozempic start weight 184.5 pounds. She had to stop the Ozempic due to not covered by insurance. She felt it was helpful. Now on Semaglutide from [facility], down 4.4 lbs.. 1. Abnormal weight gain. Her mother has similar weight issues. 2. Obesity -improved but she was having significant weight regain until starting compounded semaglutide. She had a trial off the medication with significant increase in appetite. She is now taking compounded semaglutide at 0.3 mg and she feels it is very helpful without side effects. Fortunately she is still down greater than 10% from her start weight. She has multiple serious weight related comorbidities that could benefit from healthy lifestyle change and weight loss. She is on Farxiga 10 mg now for her CHF. Farxiga can also help with diabetic prevention [...] fruits and vegetables. 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 The patient will treat with long-term lifestyle [...] and weight loss. Monitor. 7. Obstructive sleep apnea/[place] of 14/a.m. fatigue-treat with CPAP. We will [...] to prevent diabetes. 9. CKD 3-she will continue to increase her water intake. 10. Hypercholesterolemia-should be improving. She will continue to treat with decreasing the bad fats, added fats, increase activity and exercise and achieve long-term weight loss. 11. Metabolic syndrome-improving. Continue to treat with long-term healthy lifestyle changes, behavioral changes, nutritional changes, increased exercise and weight loss. Follow-up with me in 8 weeks. New labs needed: She will continue yearly blood work with her PCP. We will repeat A1c after 6 months in February 2024. She should continue regular blood work with her PCP and plaster maker. [facility] Work Phone: 1(641) 822-486508-20-2024 NotePt is here for a six month follow up, afib, heart failure, htn, ppm, valve disorder, had a echo last month. Review of Systems Respiratory: Positive for cough. All other systems reviewed and are negative.[facility] 09-30-2023 NoteCardiovascular Medicine [facility] SUBJECTIVE Chief Complaint Patient presents with Atrial Fibrillation Hypertension NSVT Penny Diane is a 72 y.o. female here for follow-up. HPI PMHx: HFrEF d/t dilated cardiomyopathy with recent echo 08/2023 showing recovered EF of 60%, afib s/p PVI ablation 05/2021 + Posterior box isolation+ Ablation of posterior wall on 07/2021, atrial flutter s/p CTI ablation with bidirectional block 07/2021, s/p BIT TAPPER-P 01/21/22, AVN ablation 04/22/2022 She has been feeling well. BP at home averages 120s/80s. Denies c/o CP, dyspnea, orthopnea, PND, LE edema, dizziness/LH, palpitations, syncope. Patient Active Problem List Diagnosis Atrial flutter (CMS/HCC) Hypertensive disorder Elevated liver function tests Steatohepatitis, nonalcoholic Longstanding persistent atrial fibrillation (CMS/HCC) NURIA (obstructive sleep apnea) Chronic systolic congestive heart failure (CMS/HCC) Nonrheumatic mitral valve regurgitation Nonrheumatic tricuspid valve regurgitation Paroxysmal atrial fibrillation (CMS/HCC) Presence of cardiac resynchronization therapy pacemaker (BIT TAPPER-P) Anxiety Depression Fatty liver Hypercholesterolemia Overweight (BMI 25.0-29.9) Post-menopausal Pre-diabetes Screening for osteoporosis Past Medical History: Diagnosis Date Arrhythmia CHF (congestive heart failure) (CMS/HCC) Family History Problem Relation Name Age of Onset Hypertension Mother Social History Tobacco Use Smoking status: Former Types: Cigarettes Smokeless tobacco: Never Substance Use Topics Alcohol use: Yes Comment: OCCASIONAL Drug use: Never Allergies Allergen Reactions Penicillins Unknown ROS Respiratory: Positive for cough. All other systems reviewed and are negative. OBJECTIVE Visit Vitals BP 137/86 (BP Location: Left arm, Patient Position: Sitting) Pulse 71 Ht 1.676 m (5' 6 ) Wt 80.3 kg (177 lb) SpO2 97% BMI 28.57 kg/m??? OB Status Postmenopausal Smoking Status Former BSA 1.93 m??? Medications: Current Outpatient Medications: dapagliflozin propanediol (Farxiga) 10 mg, Take 1 tablet (10 mg) by mouth once daily as directed., Disp: 30 tablet, Rfl: 11 dupilumab (Dupixent) 300 mg/2 mL pen injector, 300 mg., Disp: , Rfl: furosemide (Lasix) 40 mg tablet, TAKE 1 TABLET IN THE MORNING AND AT BEDTIME, Disp: 180 tablet, Rfl: 3 Klor-Con M20 20 mEq ER tablet, TAKE 1 TABLET IN THE MORNING AND AT BEDTIME (DO NOT CRUSH OR CHEW), Disp: 180 tablet, Rfl: 3 lisinopril 20 mg tablet, Take 1 tablet (20 mg) by mouth in the morning and at bedtime., Disp: 180 tablet, Rfl: 3 magnesium oxide (Mag-Ox) 400 mg tablet, Take 1 tablet (400 mg) by mouth in the morning., Disp: 90 tablet, Rfl: 3 metoprolol succinate XL (Toprol-XL) 100 mg 24 hr tablet, Take 1 tablet (100 mg) by mouth in the morning., Disp: 90 tablet, Rfl: 3 rivaroxaban (Xarelto) 20 mg tablet, Take 1 tablet by mouth in the morning., Disp: , Rfl: venlafaxine XR (Effoxor-XR) 150 mg 24 hr capsule, Take 1 capsule by mouth in the morning., Disp: , Rfl: metoprolol succinate XL (Toprol-XL) 50 mg 24 hr tablet, Take 1 tablet (50 mg) by mouth in the morning. To be taken with 100mg tablets. Do not crush or chew., Disp: 90 tablet, Rfl: 3 Physical Exam Vitals reviewed. Constitutional: Appearance: Normal appearance. She is normal weight. HENT: Head: Normocephalic and atraumatic. Right Ear: External ear normal. Left Ear: External ear normal. Eyes: Extraocular Movements: Extraocular movements intact. Conjunctiva/sclera: Conjunctivae normal. Pupils: Pupils are equal, round, and reactive to light. Neck: Vascular: No carotid bruit. Cardiovascular: Rate and Rhythm: Normal rate and regular rhythm. Pulses: Normal pulses. Heart sounds: Normal heart sounds. Pulmonary: Effort: Pulmonary effort is normal. Breath sounds: Normal breath sounds. Abdominal: General: Bowel sounds are normal. Palpations: Abdomen is soft. Musculoskeletal: Cervical back: Neck supple. Right lower leg: No edema. Left lower leg: No edema. Skin: General: Skin is warm and dry. Neurological: General: No focal deficit present. Mental Status: She is alert and oriented to person, place, and time. Psychiatric: Mood and Affect: Mood normal. Behavior: Behavior normal. Thought Content: Thought content normal. Judgment: Judgment normal. Labs: Admission on 04/22/2022, Discharged on 04/22/2022 Component Date Value Ref Range Status Sodium 04/10/2022 140 Final Potassium 04/10/2022 4.3 Final Chloride 04/10/2022 103 Final BUN, Bld 04/10/2022 19 Final Creatinine 04/10/2022 0.92 Final Glucose, Bld 04/10/2022 79 Final WHITE BLOOD CELL COUNT 03/26/2022 6.6 Final Hemoglobin 03/26/2022 12.8 Final Hematocrit 03/26/2022 39.6 36.0 - 48.0 % Final Platelets 03/26/2022 233 Final Ventricular Rate 04/22/2022 70 BPM Final Atrial Rate 04/22/2022 68 BPM Final QRS DURATION 04/22/2022 128 (more content not included)...[facility]07-16-2024 Evaluation note* Author Joaquín Maria [facility] Authored August 26, 2023 2:16 pm Start [...] fruits and vegetables. 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 The patient will treat with long- term lifestyle changes of improved nutrition, increased exercise [...] and weight loss. Monitor. 7. Obstructive sleep apnea/[place] of 14/a.m. fatigue-treat with CPAP. We will [...] regular blood work with her PCP and plaster maker. [facility] Work Phone: 1(888) 266-138907-16-2024 Evaluation note* Author Joaquín Maria [facility] Authored August 26, 2023 2:16 pm Start [...] fruits and vegetables. 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 The patient will treat with long- term lifestyle changes of improved nutrition, increased exercise [...] and weight loss. Monitor. 7. Obstructive sleep apnea/[place] of 14/a.m. fatigue-treat with CPAP. We will [...] regular blood work with her PCP and plaster maker. Author Bryanna Ryder [facility] Authored October 28, 2023 1:48pm Start weight: 199.7 lbs., sh e is down 23.9 lbs. today with a weight of 175.8 lbs. She is down 4.4 lbs. since her last visit on 08/26/2023. Starting waist circumference: 39.0 inches. Starting Date: 09/04/2020. Ozempic start date 08/23/2021. Ozempic start weight 184.5 pounds. She had to stop the Ozempic due to not covered by insurance. She felt it was helpful. Now on Semaglutide from [facility], down 4.4 lbs.. 1. Abnormal weight gain. Her mother has [...] fruits and vegetables. 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 The patient will treat with long- term lifestyle changes of improved nutrition, increased exercise [...] and weight loss. Monitor. 7. Obstructive sleep apnea/[place] of 14/a.m. fatigue-treat with CPAP. We will [...] regular blood work with her PCP and plaster maker. [facility] Work Phone: 1(335) 177-124802-13-2024 NotePatient here for 6 mo follow up persistent afib, chronic systolic heart failure, valve disorder, and hypertension. She is scheduled for routine device check next month. Denies chest pain, SOB, palpitations, lightheadedness/syncope, and bleeding on Xarelto. Review of Systems Respiratory: Positive for cough. All other systems reviewed and are negative.[facility] 03-25-2023 NoteUT Electrophysiology Note [facility] Reason for Consultation: 6 month follow [...] HP and consent for AVN ablation s/p BIT TAPPER-P 01/21/22 She has been doing well since pacemaker placement Recent device check 03/05/22 shows normal device function with normal thresholds - underlying rhytb afib - RV/LV paced 18% She had a recent admission to [facility] for acute decompensated CHF with A-fib [...] managed with diltiazem. She was brought to [facility] for DCCV and perforemd by Dr Turner on 06/02/20. She converted to SR and subsequently was admitted to [facility] with ADHF and pulm edema. She [...] have suggested PPM+AVN ablation at this time. [facility] cardiac rehab staff says her HR [...] IV CONTRAST STEVE CONVERSION (more content not included)...[facility]02-07-2024 Telephone encounter Note* Telephone Encounter - Julian Nielsen - 03/19/2023 1:58 PM EST Patient is scheduled. [id number] Miscellaneous Notes* Telephone Encounter - Julian Nielsen [...] this patient. Dx: inspire consult / nuria Briggs INSURANCE: medicare Referral is in [facility] for review. documented in this encounter[facility] [id number] Evaluation note* Encounter Date Diagnosis Assessment Notes [...] Mar, Metabolic syndrome X (ICD-10 - E88.81) [facility] Other 02-01-2024 Evaluation note* Author Bryanna Ryder [facility] Authored August 26, 2023 1:58 pm Start [...] fruits and vegetables. 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 The patient will treat with long-term lifestyle [...] and weight loss. Monitor. 7. Obstructive sleep apnea/[place] of 14/a.m. fatigue-treat with CPAP. We will [...] regular blood work with her PCP and plaster maker. [facility] Work Phone: 1(556) 131-662001-25-2024 Telephone encounter Note* Telephone Encounter - Julian Nielsen - 03/06/2023 5:59 PM EST (1st call) left voicemail [id number] Telephone encounter Note* Telephone Encounter - Julian Nielsen - 03/06/2023 5:58 PM EST Images from the original note were not included. Referral approved Calling patient [facility] [id number] Telephone encounter Note* Telephone Encounter - Julian Nielsen - 03/05/2023 5:10 PM EST [facility] received a referral for this patient. Dx: shari blair / nuria Briggs INSURANCE: medicare Referral is in [facility] for review. [facility] [id number] Evaluation note* Encounter Date Diagnosis Assessment Notes [...] would need to be undertaken at the plaster maker office while heart rhythm and pacing parameters [...] changes in symptoms and/or problems with treatment [facility] Other 10-25-2023 Evaluation note* Encounter Date Diagnosis [...] 1-2 x/week in addition to cardiac rehab [facility] Other 10-12-2023 Evaluation note* Encounter Date Diagnosis [...] Nov, Metabolic syndrome X (ICD-10 - E88.81) [place] [facility] Other 08-08-2023 Evaluation note* Encounter Date Diagnosis [...] Metabolic syndrome X (ICD-10 - E88.81) Not [id number] Evaluation note* Encounter Date Diagnosis Assessment Notes [...] Jul, Metabolic syndrome X (ICD-10 - E88.81) [facility] Other 03-09-2023 Evaluation note* Encounter Date Diagnosis Assessment Notes [...] Apr, Metabolic syndrome X (ICD-10 - E88.81) [facility] Other 03-02-2023 Evaluation note* Encounter Date Diagnosis [...] set the following goals: NOT REVIEWED TODAY [facility] Other 12-01-2022 Evaluation note* Encounter Date Diagnosis [...] sister on phone or an audio book [employer] Other 10-25-2022 Evaluation note* Encounter Date Diagnosis [...] Nov, Metabolic syndrome X (ICD-10 - E88.81) [facility] Other 09-29-2022 Evaluation note* Encounter Date Diagnosis [...] Oct, Metabolic syndrome X (ICD-10 - E88.81) [facility] Other 08-18-2022 Evaluation note* Encounter Date Diagnosis [...] Sep, Metabolic syndrome X (ICD-10 - E88.81) [facility] Other 07-07-2022 Evaluation note* Encounter Date Diagnosis [...] sister on phone or an audio book [facility] Other 05-17-2022 Evaluation note* Encounter Date Diagnosis [...] increase protein to about 15 g /meal [facility] Other 04-05-2022 Evaluation note* Encounter Date Diagnosis [...] May, Metabolic syndrome X (ICD-10 - E88.81) [facility] Other 03-10-2022 Evaluation note* Encounter Date Diagnosis [...] w/ zak - NEW: choose healthier snacks [facility] Other 02-28-2022 Evaluation note* Encounter Date Diagnosis [...] Mar, Metabolic syndrome X (ICD-10 - E88.81) [facility] Other Evaluation noteNo InformationNort WITOI Other Evaluation noteNo assessment information available [facility] Work Phone: History general Narrative - Reported* Type Description Date Medical History depression Medical History anxiety Medical History high blood pressure Medical History Atrial fibrillation Medical History snoring Surgical History gall bladder [facility] Other Hiscwhp general Narrative - Reported* Type Description Date Medical History depression Medical History anxiety Medical History high blood pressure Medical History Atrial fibrillation Medical History snoring Medical History sleep apnea Surgical History gall bladder [facility] Other Hisdfxh general Narrative - Reported* Type Description Date Medical History depression Medical History anxiety Medical History high blood pressure Medical History Atrial fibrillation Medical History snoring Medical History sleep apnea Medical History CHF Medical History Pacemaker 01-21-2022 Surgical History gall bladder Surgical History Pacemaker Hospitalization History See above [facility] Other Hismupv general Narrative - Reported* Type Description Date Medical History depression Medical History anxiety Medical History high blood pressure Medical History Atrial fibrillation Medical History snoring Medical History sleep apnea Medical History CHF Medical History Pacemaker 01-21-2022 Medical History Heart ablation Surgical History gall bladder Surgical History Pacemaker Surgical History Heart Ablation [facility] Hospitalization History See above [facility] Other Summary Purpose Family History Relationship Condition [...] Date/ Time Advance Directives No March 10:17am Advance Directive Response Recorded Date/ Time Advance Directives No December 11:14am Chief Complaint and Reason for Visit Chief Complaint Wmn Obesity Interested in Intimothy/Matt/MSC Chief Complaint Establish Reason for Visit Essential hypertensi on Fatty liver Hypercholesterolemia Obstructive sleep apnea Overweight (BMI 25.0-29.9) Pre-diabetes Anxiety Depression Essential hypertension Fatty liver Hypercholesterolemia Obstructive sleep apnea Post-menopausal Pre-diabetes Screening for osteoporosis Chief Complaint Establish 2 month f/u Reason for Visit Essential hypertensi on Fatty liver Hypercholesterolemia Obstructive sleep apnea Overweight (BMI 25.0-29.9) Pre-diabetes Anxiety Atrial fibrillation Depression Essential hypertension Fatty liver Hypercholesterolemia Obstructive sleep apnea Overweight (BMI 25.0-29.9) Post-menopausal Pre-diabetes Screening for breast cancer Screening for osteoporosis Chief Complaint Admit Date 2 month f/u October 28, 2023 1:22pm Reason for Visit Admit Date Essential hypertension October 27, 2 024 1:22pm Fatty liver October 28, 2023 1:22pm Hypercholesterolemia October 27 1:22pm Obstructive sleep apnea October 28, 2023 1:22pm Overweight (BMI 25.0-29.9) October 1:22pm Pre-diabetes October 28, 2023 1:22pm Chief Complaint Admit Date 2 month f/u October 28, 2023 1:22pm Sore Throat/Cough December 30, 2023 1:57pm Reason for Visit Admit Date Essential hypertension October 27, 024 1:22pm Fatty liver October 28, 2023 1:22pm Hypercholesterolemia October 27 1:22pm Obstructive sleep apnea October 28, 2023 1:22pm Overweight (BMI 25.0-29.9) October 1:22pm Pre-diabetes October 28, 2023 1:22pm Essential hypertension December 22 10:43am Fatty liver December 23, 2023 10:43am Hypercholesterolemia December 23, 2023 10:43am Obstructive sleep apnea December 22 024 10:43am Overweight (BMI 25.0-29.9) December 10:43am Pre-diabetes December 23, 2023 10:43am Maxillary sinusitis December 30, 2023 1:57pm Additional Source Comments INFORMATION SOURCE (unrecogn ized section and content) DATE CREATED AUTHOR 06/10/2018 [facility] DATE CREATED AUTHOR AUTHOR'S ORGANIZ ATION 09/12/2021 [facility] DATE CREATED AUTHOR AUTHOR'S ORGANIZ ATION 06/23/2022 [facility] DATE CREATED AUTHOR AUTHOR'S ORGANIZ ATION 04/12/2023 [facility]ical [facility] DATE CREATED AUTHOR AUTHOR'S ORGANIZ ATION 07/15/2023 [facility] DATE CREATED AUTHOR AUTHOR'S ORGANIZ ATION 11/29/2023 [facility] REASON FOR VISIT (unrecogniz ed section and content) WMN Dr restarting programWMN Dr follow upWMN Initial RDr/s RD appt WMPrior AuthFCCC ApptsDC OzempicWM RD follow upDC Interested in exercise programWM Exercise programNo InformationWM RD follow up - 6 wksWMN F/UWMN Dr F/U4 weeksWM RD follow upCKD (previously WMWMN F/UFCCC Med review, LM 212 month Follow upWMN F/UDC RefillWMN f/upckd- 6 [...] Member Role Status Dates Sonia Baig APRN SALES PROJECT ADMINISTRATOR-C Primary Care Provider Active Team Status: Inactive Member Role Status Dates Sonia Baig APRN SALES PROJECT ADMINISTRATOR-C Primary Care Provider Active Start: August 26, 2023 End: August 26, 2023 Joaquín Maria MD Attending Provider Active Start: August 26, 2023 End: August 26, 2023 Team Status: Inactive Member Role Status Dates Sonia Baig APRN SALES PROJECT ADMINISTRATOR-C Primary Care Provider, Attending Provider Active Start: August 28, 2023 End: August 28, 2023 Team Status: Inactive Member Role Status Dates Sonia Baig APRN SALES PROJECT ADMINISTRATOR-C Primary Care Provider Active Start: October 112023 End: October 28, 2023 Joaquín Maria MD Attending Provider Active Start: October 28, 2023 End: October 28, 2023 Team Status: Inactive Member Role Status Dates Sonia Baig APRN SALES PROJECT ADMINISTRATOR-C Primary Care Provider Active Start: December 222023 End: December 23, 2023 Joaquín Maria MD Attending Provider Active Start: December 23, 2023 End: December 23, 2023 Team Status: Inactive Member Role Status Dates Sonia DANNY Baig SALES PROJECT ADMINISTRATOR-C Primary Care Provider, Attending Provider Active Start: December 30, 2023 End: December 30, 2023 Goals (unrecognized section and content) Goals [...] BE BASED ON THE PRIMARY CLINICAL RECORDS. [employer] provides no warranty or guarantee of the accuracy or completeness of information in this document.
[2024-03-04 10:16] LABS: Basophils Absolute Auto 0.1 10^3/uL (0.0-0.1); Eosinophils Absolute Auto 0.2 10^3/uL (0.0-0.7); Eosinophils Percent Auto 4.3 % (0.9-7.0); Hematocrit 48.2 % (36.0-48.0); Hemoglobin 15.5 g/dL (12.0-16.0); Immature Granulocytes Abs Auto 0.01 10^3/uL (0.00-0.03); Immature Granulocytes Pct Auto 0.2 % (0.0-0.5); Lymphocytes Absolute Auto 1.5 10^3/uL (1.2-3.8); Lymphocytes Percent Auto 31.5 % (20.5-60.0); Mean Corpuscular HGB Conc 32.2 g/dL (29.9-35.2); Mean Corpuscular Hemoglobin 30.9 pg (26.7-34.0); Mean Corpuscular Volume 96.2 fL (81.0-99.0); Mean Platelet Volume 9.3 fL (9.5-13.5); Monocytes Absolute Auto 0.5 10^3/uL (0.3-0.8); Monocytes Percent Auto 9.4 % (1.7-12.0); Neutrophils Absolute Auto 2.6 10^3/uL (1.4-6.5); Neutrophils Percent Auto 53.6 % (43.0-75.0); Platelet Count 222 10^3/uL (150-450); Red Blood Count 5.01 10^6/uL (4.20-5.40); Red Cell Distribution Width 14.2 % (11.0-15.0); White Blood Count 4.9 10^3/uL (4.0-11.0)
[2024-03-04 10:49] LABS: Estimated Average Glucose 108 mg/dL; Glycohemoglobin A1C 5.4 % (4.5-6.2)
[2024-03-04 11:11] LABS: Alanine Aminotransferase 30 U/L (14-59); Albumin Globulin Ratio 0.8; Albumin Level 3.3 g/dL (3.4-5.0); Alkaline Phosphatase 111 U/L (46-116); Anion Gap 10.7; Aspartate Amino Transferase 21 U/L (15-37); BUN Creatinine Ratio 13.2; Bilirubin Total 0.6 mg/dL (0.2-1.0); Calcium 9.5 mg/dL (8.5-10.1); Carbon Dioxide 31.6 mmol/L (21.0-32.0); Chloride 106 mmol/L (98-107); Chol HDL Ratio 2.9; Cholesterol 184 mg/dL (<=200); Estimated GFR (African America 56 (>=60 mL/min/1.73m^2); Estimated GFR (Non-African Ame 47 (>=60 mL/min/1.73m^2); Globulin 4.1 g/dL; Glucose 86 mg/dL (74-106); HDL Cholesterol 64 mg/dL (40-60); Potassium 4.3 mmol/L (3.5-5.1); Sodium 144 mmol/L (136-145); Thyroid Stimulating Hormone 1.626 uIU/mL (0.358-3.740); Total Protein 7.4 g/dL (6.4-8.2); Triglycerides 81 mg/dL (<=150); VLDL CHOLESTEROL 16.2 mg/dL
== END 2024-03-04 09:51 | disposition home or self-care (01) ==
LOC: LAB 09:54
PROVIDERS: PCP Nurse Practitioner Family; Visit Provider Internal Medicine
DX: K76.0 Fatty (change of) liver, not elsewhere classified (principal); R73.03 Prediabetes; R53.83 Other fatigue; E78.00 Pure hypercholesterolemia, unspecified; I48.91 Unspecified atrial fibrillation
CPT/HCPCS: 36415; 80053; 80061; 83036; 84443; 85025

== ENCOUNTER 2024-03-16 14:32 | Outpatient (RCR) | payer MEDICARE, OTHER, SELFPAY | END 2024-06-18 09:29 | disposition home or self-care (01) | LOC: ST 14:32 | PROVIDERS: PCP Nurse Practitioner Family; Visit Provider Nurse Practitioner Family | DX: R47.9 Unspecified speech disturbances (principal); R49.0 Dysphonia | CPT/HCPCS: 92507; 92524 ==

== ENCOUNTER 2024-06-14 08:07 | Outpatient (OUT) | payer MEDICARE, OTHER, SELFPAY ==
[2024-06-14 09:06] LABS: Cholesterol 135 mg/dL (<=200); HDL Cholesterol 66 mg/dL (40-60); Triglycerides 70 mg/dL (<=150)
== END 2024-06-14 08:08 | disposition home or self-care (01) ==
DX: E78.2 Mixed hyperlipidemia (principal)
CPT/HCPCS: 36415; 80061

== ENCOUNTER 2024-06-23 10:07 | Outpatient (OUT) | payer MEDICARE, OTHER, SELFPAY ==
[2024-06-23 10:46] LABS: Basophils Percent Auto 0.6 % (0.2-2.0); Eosinophils Absolute Auto 0.2 10^3/uL (0.0-0.7); Eosinophils Percent Auto 3.8 % (0.9-7.0); Hematocrit 43.9 % (36.0-48.0); Hemoglobin 14.6 g/dL (12.0-16.0); Immature Granulocytes Abs Auto 0.01 10^3/uL (0.00-0.03); Immature Granulocytes Pct Auto 0.2 % (0.0-0.5); Lymphocytes Absolute Auto 1.5 10^3/uL (1.2-3.8); Lymphocytes Percent Auto 28.9 % (20.5-60.0); Mean Corpuscular HGB Conc 33.3 g/dL (29.9-35.2); Mean Corpuscular Hemoglobin 31.8 pg (26.7-34.0); Mean Corpuscular Volume 95.6 fL (81.0-99.0); Mean Platelet Volume 9.8 fL (9.5-13.5); Monocytes Absolute Auto 0.5 10^3/uL (0.3-0.8); Neutrophils Percent Auto 57.5 % (43.0-75.0); Platelet Count 192 10^3/uL (150-450); Red Blood Count 4.59 10^6/uL (4.20-5.40); Red Cell Distribution Width 13.9 % (11.0-15.0); White Blood Count 5.2 10^3/uL (4.0-11.0)
[2024-06-23 10:59] LABS: Anion Gap 11.8; BUN Creatinine Ratio 17.5; Calcium 9.3 mg/dL (8.5-10.1); Chloride 106 mmol/L (98-107); Estimated GFR (African America >60 (>=60 mL/min/1.73m^2); Estimated GFR (Non-African Ame 52 (>=60 mL/min/1.73m^2); Glucose 98 mg/dL (74-106); Potassium 3.8 mmol/L (3.5-5.1); Sodium 143 mmol/L (136-145)
== END 2024-06-23 10:08 | disposition home or self-care (01) ==
LOC: LAB 10:08
PROVIDERS: PCP Nurse Practitioner Family
DX: I50.32 Chronic diastolic (congestive) heart failure (principal)
CPT/HCPCS: 36415; 80048; 85025

== ENCOUNTER 2024-09-02 09:39 | Outpatient (OUT) | payer MEDICARE, OTHER, SELFPAY ==
--- NOTE | 2024-09-02 10:00 | CA_ITS ---
Patient Name: LEO DIANE MR#: [id number] : 1950 Exam Date: 09/02/2024 Ordering Doctor: RACHAEL VERONICA ECHOCARDIOGRAM REPORT PROCEDURE: CA ECHO DOPPLER COMPLETE INDICATIONS: Heart failure with preserved ejection fraction, pacemaker, hypertension COMPARISON: None. DESCRIPTION: COMPLETE ECHOCARDIOGRAM Real-time transthoracic echocardiography with 2D, M-mode, spectral and color flow Doppler performed. QUALITY: Technical quality was good. LEFT VENTRICLE: Normal chamber size. Moderate concentric left ventricular hypertrophy. LV EF: Normal left ventricular ejection fraction, (>55%). DIASTOLIC: Grade III diastolic dysfunction. ATRIAL SEPTUM: Visually appears intact. LEFT ATRIUM: Severe dilatation. RIGHT ATRIUM: Moderate dilatation. RIGHT VENTRICLE: Mild dilatation. Normal systolic function. Pacer wire present. TRICUSPID VALVE: Normal mobility and thickness. No stenosis with mild to moderate regurgitation. Doppler studies reveal mildly (35-45) elevated right sided pressures. RVSP 42 mmHg MITRAL VALVE: Normal mobility and thickness. No evidence of mitral valve stenosis. There is no mitral annular calcification. Mild to moderate mitral regurgitation. AORTIC VALVE: Normal trileaflet appearance. Thickened aortic valve. Normal leaflet mobility. No evidence of aortic valve stenosis. No aortic regurgitation. AORTIC ROOT: Normal diameter and appearance, measuring 3.1 cm. PULMONIC VALVE: Normal thickness and mobility. No stenosis. No regurgitation. PERICARDIUM: No evidence of pericardial effusion. IVC: IVC does not collapse. PLEURA: CONCLUSION: 1. Moderate concentric left ventricular hypertrophy with normal systolic function. LVEF is 60%. 2. Mildly dilated right ventricle with normal systolic function. 3. Grade 3 diastolic dysfunction. 4. Mild to moderate mitral regurgitation. 5. Severe left atrial dilatation. 6. Moderate right atrial dilatation. 7. Mildly elevated right-sided pressures. Adult Echocardiography Procedure Report Left Ventricle LVEDD (3.7 - 5.6 cm): 4.27 cm LVESD (2.2 - 4.0 cm): 2.90 cm LVIVS thickness (0.6 - 1.2 cm): 1.48 cm LVPW thickness (0.5 - 1.0 cm): 1.34 cm e': 0.12 m/s E - e': 5.74 LVOT Max Gradient: 2.63 mm[Hg] LVOT Area (cm2): 0.81 m/s Peak Velocity (LVOT): 0.81 m/s Mean Velocity (LVOT): 0.57 m/s LVOT Diameter 2.13 cm Left Ventricular Ejection Fraction: 60 % Left Atrium LA Volume Index (2D A2C): 62.97 ml/m2 Left Atrium Systolic Dimension: 4.35 cm Mitral Valve MV E to A Ratio: 2.73 Mitral Valve A-Wave Peak Velocity: 0.26 m/s Mitral Valve E-Wave Peak Velocity: 0.71 m/s Right Ventricle Aorta AO Root Diam: 3.12 cm Aortic Valve AoV Area (Peak Yosef): 2.39 cm2, 2.39 cm2, 92.79 cm2, 92.79 cm2 AoV Area (VTI): 2.86 cm2, 2.86 cm2 Peak Velocity(Antegrade Flow): 1.21 m/s, 0.03 m/s Peak Gradient(Antegrade Flow): 0.00 mm[Hg], 5.83 mm[Hg] Mean Velocity(Antegrade Flow): 0.81 m/s Mean Gradient(Antegrade Flow): 2.96 mm[Hg] Velocity Time Integral: 23.06 cm Tricuspid Valve Peak Velocity (Regurgitant Flow): 2.86 m/s, 2.92 m/s, 2.75 m/s Pulmonic Valve Peak Gradient: 1.80 mm[Hg], 2.54 mm[Hg] Right Atrium Right Atrium Systolic Pressure: 63.34 ml, 63.34 ml Dictated by: Charly Lofton M.D. on 09/02/2024 at 18:33 Approved by: Charly Lofton M.D. on 09/02/2024 at 18:36
== END 2024-09-02 09:40 | disposition home or self-care (01) ==
LOC: CARD 09:39
PROVIDERS: PCP Nurse Practitioner Family
DX: I34.0 Nonrheumatic mitral (valve) insufficiency (principal)
CPT/HCPCS: 93306

== ENCOUNTER 2024-10-01 11:25 | Outpatient (OUT) | payer MEDICARE, OTHER, SELFPAY ==
--- OUTSIDE RECORDS SUMMARY | 2024-10-01 11:34 | XMS_ITS | CCD ---
Author Organization [facility] CliniSymo Care Team Providers Care Industrial Custodian Name Role Phone HOUSE, SR TY P [...] HOUSE, DR CARDONA Primary Care Unavailable JACI BROOKS Admitting Unavailable JACI BROOKS Attending Unavailable HOUSE, DR CARDONA Primary Care Unavailable JACI BROOKS Consulting Unavailable JACI BROOKS Admitting Unavailable JCAI BROOKS Attending Unavailable HOUSE, DR CARDONA Primary Care Unavailable JACI BROOKS Consulting Unavailable JACI BROOKS Admitting Unavailable JACI BROOKS Attending Unavailable HOUSE, DR CARDONA Primary Care Unavailable JACI BROOKS Consulting Unavailable HOUSE, DR CARDONA Primary Care Unavailable WHITT ., DR BRITTNY Membreno Admitting Unavailable WHITT ., DR BRITTNY Membreno Attending Unavailable WHITT ., DR BRITTNY Membreno Consulting Unavailable SHAIKH Naty LOJA Consulting Unavailable MED TUTTLE Consulting Unavailable ANNITA BRAN Consulting Unavailable DIAB ., BISI Consulting Unavailable REGINO HERNADEZ Admitting Unavailable REGINO HERNADEZ Attending Unavailable DR TY THOMAS Primary Care Unavailable REGINO HERNADEZ Consulting Unavailable HALIE NICK Consulting Unavailable DO Ty Thomas Primary Care Provider [phone] MD Joaquín Maria Attending Provider MD Med Urbano Attending Provider NON STAFF Primary Care Provider UnavailMed Cunningham Unavailable Unavailable Primary Care Provider UnavailSonia Grady NP Primary Care Provider ECHO DAVILA Attending Unavailable DANIELLE WAITE Attending Unavailable Sonia Baig APRN Primary Care Provider Viri Toscano MD Attending Provider Sonia Baig APRN Attending Provider Annamaria PERSONAL CONSULTANT-C, Darius C Attending Provider [phone] Joaquín Maria MD Attending Provider Dorcas MARTINEZ, [place] Other Provider Sonia Baig Primary Care Unavailable Asaad, Imad Attending Unavailable Asaad, Imad Admitting Unavailable Asaad, Imad Admitting Unavailable Sonia Baig Primary Care Unavailable Asaad, Imad Attending Unavailable REGINO HERNADEZ Referring Unavailable DARIUS VERONICA Attending Unavailable DARIUS VERONICA Attending Unavailable REGINO HERNADEZ Referring Unavailable JACI BROOKS Attending Unavailable REGINO HERNADEZ Referring Unavailable Sonia Baig APRN Primary Care Provider Dorcas MARTINEZ, [place] Attending Provider Ivette Silva RD Attending Provider Unavailab Sonia Greene APRN Primary Care Provider Sonia Baig APRN Attending Provider Allergies Allergy Classification Reported Allergen(s) Allergy Type Date of Onset Reaction(s) Facility (20 sources) Amiodarone Drug Allergy 03-13-19 24 [facility] (20 sources) penicillAMINE Drug Allergy 03-13-19 24 Unknown, Rash [facility] (3 sources) Penicillins; Translations: [PENICILLINS] Drug allergy (disorder) 07-26-19 16 [facility] (1 source) Leucine Drug Allergy 04-18-19 17 [facility] (5 sources) Penicillins Drug Intolerance 08-28-19 17 [facility] (1 source) Amiodarone Drug Allergy 07-21-19 [facility] (1 source) penicillAMINE Drug Allergy 07-21-19 [facility] Medications Current Medications Medication Drug Class(es) Dates Sig (Normalized) Sig (Original) atorvastatin 20 mg oral tablet (8 sources) HMG-CoA Reductase Inhibitor Start: 03-26-2024 End: 03-26-2025 take 1 tablet by mouth once daily Atorvastatin 20 mg tablet Active 20 MG PO Daily April 26, 2024 12:00am Complies with drug therapy cholecalciferol 0.25 mg oral capsule (9 sources) Vitamin D Vitamin D3 250 M CG (10675 UT) as directed Orally Active clobetasol propionate 0.0005 mg/mg topical ointment (12 sources) Corticosteroid Start: 08-28-2023 Clobetasol 0.05 % ointment Active 1 APPLIC TOPICAL Daily August 28, 2023 12:00am Complies with drug therapy dapagliflozin 10 mg oral tablet (20 sources) Sodium-Glucose Cotransporter 2 Inhibitor Start: 08-12-2023 End: 03-04-2024 take 1 tablet by mouth once daily Dapagliflozin Propanediol (Farxiga) 10 mg tablet Active 10 MG PO Daily 90 90 March 04, 2024 12:10pm Complies with drug therapy [facility] Farxiga 10 MG 1 tablet Orally Once a day Dapagliflozin Active 24 hr dilTIAZem hydrochloride 360 mg extended release oral capsule (20 sources) Calcium Channel Tomas Start: 06-17-2022 End: 03-24-2024 dilTIAZem CD (Cardizem CD) 360 MG 24 hr capsule 06/17/2022 03/24/2024 Discontinued (Therapy completed) take 1 capsule by mo [facility] every twenty-four hours dilTIAZem HCl ER Coated Beads 360 MG 1 capsule Orally Once a day Active 2 ml dupilumab 150 mg/ml auto-injector (20 sources) Interleukin-4 Receptor alpha Antagonist Start: 08-12-2023 End: 08-28-2023 inject 300 mg by subcutaneous injection every other week Dupilumab (Dupixent Pen) 300 mg/2 mL pen injector Active 300 MG SUBCUT EVERY 2 WEEKS August 28, 2023 10:43am Complies with drug therapy Dupixent 300 MG/ 2ML Subcutaneous for 28 Days Active Echinacea 400 MG (16 sources) Echinacea 400 MG as directed Orally Active furosemide 40 mg oral tablet (20 sources) Loop Diuretic Start: 09-25-2022 take 1 tablet by mouth twice daily Furosemide 40 mg tablet Active 40 MG PO Twice daily August 12, 2023 12:00am Complies with drug therapy take 1 tablet by alex th every [...] sources) Angiotensin Converting Enzyme Inhibitor Start: 08-12-2023 End: 03-04-2024 take 1 tablet by mouth twice daily Lisinopril 20 mg tablet Active 20 MG PO Twice daily 180 90 March 04, 2024 12:12pm Complies with drug therapy take 1 tablet by alex th every twenty-four hours Lisinopril 20 MG 1 tablet Orally Once a day Active magnesium oxide 400 mg oral tablet (20 sources) Start: 08-12-2023 take 1 tablet by mouth once daily Magnesium Oxide 400 mg (241.3 mg magnesium) tablet Active 400 MG PO Daily August 12, 2023 12:00am Complies with drug therapy take 1 tablet by alex th every twenty-four hours Magnesium Oxide 400 MG 1 tablet Orally Once a day Active take 1 tablet by mouth every twe lve hours Magnesium Oxide 400 MG 1 tablet Orally BID Active 24 hr metoprolol succinate 100 mg extended release oral tablet (20 sources) beta-Adrenergic Tomas Start: 08-12-2023 Metopr olol Succinate 100 mg tablet extended release 24 hr Active 150 MG PO Daily August 12, 2023 12:00am Complies with drug therapy Start: 08-07-2022 take 1 tablet by alex th once daily metoprolol succinate XL (Toprol-XL) 100 MG 24 hr tablet Take 1 tablet by mouth Daily 08/07/2022 Active take 1.5 tablets by mouth every twenty-four hours Metoprolol Succinate ER 100 MG 1.5 tablet Orally Once a day Not-Taking potassium chloride 20 meq extended release oral tablet (20 sources) Start: 08-12-2023 take 1 tablet by mouth twice daily Potassium Chloride 20 mEq tablet extended release Active 20 MEQ PO Twice daily August 12, 2023 12:00am Complies with drug therapy Start: 08-07-2022 take 1 tablet by alex th in the morning potassium chloride CR (Klor-Con M20) 20 MEQ ER tablet Take 20 mEq by mouth in the morning and 20 mEq in the evening. 08/07/2022 Active take 1 tablet by alex th every twelve hours Potassium Chloride ER 20 MEQ 1 tablet with food Orally Twice a day Active take 1 tablet by alex th every six hours Potassium Chloride ER 20 MEQ 1 tablet with food Orally QID Active rivaroxaban 10 mg oral tablet (20 sources) Factor Xa Inhibitor Start: 09-14-2024 take 1 tablet by mouth once daily Rivaroxaban (Xarelto) 10 mg tablet Active 10 MG PO Daily September 14, 2024 12:00am Complies with drug therapy Start: 08-04-2024 End: 09-14-2024 take 10 mg by mouth once daily Rivaroxaban 20 mg table t Discontinued 10 MG PO Daily August 04, 2024 12:00am September 14, 2024 11:13am Xarellto Start: 08-12-2023 End: 08-04-2024 take 1 tablet by mouth once daily Rivaroxaban 20 mg tablet Discontinued 20 MG PO Daily October 28, 2023 1:31pm November 04, 2023 11:15am Xarellto Semaglutide Base (1 source) Start: 10-28-2023 inject 1 mL by subcutaneous injection every week Semaglutide Base Active 0.25 ML SUBCUT every week October 28, 2023 12:00am [facility] Pre-filled Syringes using Semaglutide [...] 0.5 mL Injection 7 days Dec, Active Semaglutide,0.25 or 0.5MG/DOS, 2 MG/3ML solution pen-injector (4 sources) Start: 11-14-2023 Semaglutide,0. 25 or 0.5MG/DOS, 2 MG/3ML solution pen-injector every week 11/14/2023 Active Semaglutide/NAM/MeCbl 0.6 mg/0.5 mL (5 sources) Start: 09-14-2024 Semaglutide/NA M/MeCbl 0.6 mg/0.5 mL Active 0.5 ML SUBCUT every week September 14, 2024 11:26am [facility] Pre-filled Syringes using Semaglutide Base 0.6 mg/Niacinamide 0.5 mg and Methylcobalamin 2 mcg Dispense 2 mL - (Four 0.5 mL pre-filled syringes) Complies with drug therapy Start: 06-29-2024 End: 09-14-2024 Semaglutide/NAM/MeCbl 0.6 mg /0.5 mL Discontinued 0.5 ML SUBCUT every week June 29, 2024 12:00am September 14, 2024 11:26am [facility] Pre-filled Syringes using Semaglutide Base 0.6 mg/Niacinamide 0.5 mg and Methylcobalamin 2 mcg Dispense 2 mL - (Four 0.5 mL pre-filled syringes) Start: 06-29-2024 Start: 06-29-2024 Semaglutide/NA M/MeCbl 0.6 mg/0.5 mL Active 0.5 ML SUBCUT every week June 29, 2024 12:00am [facility] Pre-filled Syringes using Semaglutide Base 0.6 mg/Niacinamide 0.5 mg and Methylcobalamin 2 mcg Dispense 2 mL - (Four 0.5 mL pre-filled syringes) Complies with drug therapy 24 hr venlafaxine 150 mg extended release oral capsule (20 sources) Serotonin and Norepinephrine Reuptake Inhibitor Start: 07-29-2024 End: 08-03-2024 take 1 capsule by mouth once daily Venlafaxine 150 mg capsule,extended release 24hr Active 150 MG PO Daily August 03, 2024 8:38am Complies with drug therapy Start: 02-24-2024 End: 07-29-2024 Venlafaxine 150 mg capsule,e xtended release 24hr Discontinued 0 .ROUTE .COMPLEX February 24, 2024 3:06pm July 29, 2024 11:22am TAKE 1 CAPSULE DAILY Start: 02-24-2024 Venlafaxine 15 0 mg capsule,extended release 24hr Active 0 .ROUTE .COMPLEX February 24, 2024 3:06pm TAKE 1 CAPSULE DAILY Start: 02-24-2024 Venlafaxine 15 0 mg capsule,extended release 24hr Active 0 .ROUTE .COMPLEX February 24, 2024 2:06pm TAKE 1 CAPSULE DAILY Start: 08-12-2023 End: 02-24-2024 take 1 capsule by mouth once daily Venlafaxine 150 mg capsule,extended release 24hr Discontinued 150 MG PO Daily August 28, 2023 10:57am November 28, 2023 11:36am Louann-C (8 sources) Louann-C Active Vitamin B12 1000 MCG (16 sources) take 1 tablet by mouth once john y take 1 tablet by mouth once john y Vitamin B12 1000 MCG 1 tablet Orally Once a day Active Vitamin D3 250 MCG (05388 UT ) (7 sources) Vitamin D3 250 M CG (08889 UT) as directed Orally Active Completed/Discontinued Medications Medication Drug Class(es) Dates Sig (Normalized) Sig (Original) benzonatate 200 mg oral capsule (9 sources) Non-narcotic Antitussive Start: 12-30-2023 End: 03-04-2024 take 1 capsule by mouth three times daily as needed for cough Benzonatate 200 mg capsule Discontinued 200 MG PO Three times daily as needed for cough 09 12December 30, 2023 1:00am March 04, 2024 12:11pm doxycycline monohydrate 100 mg oral tablet (16 sources) Tetracycline-class Drug Start: 04-13-2024 End: 05-04-2024 take 1 tablet by mouth twice daily Doxycycline Monohydrate 100 mg tablet Discontinued 100 MG PO Twice daily 29 11April 13, 2024 1:00am May 04, 2024 11:09am Start: 12-30-2023 End: 03-04-2024 take 1 capsule by mouth twice daily Doxycycline Monohydrate 100 mg capsule Discontinued 100 MG PO Twice daily 29 11December 30, 2023 1:00am March 04, 2024 12:09pm polyethylene glycol 3350 884632 mg / potassium chloride 2970 mg / sodium bicarbonate 6740 mg / sodium chloride 5860 mg / sodium sulfate 90819 mg powder for oral solution (8 sources) Osmotic Laxative Start: 07-09-2024 End: 09-10-2024 Peg 3350-Electrolytes (Golytely) 236-22.74-6.74 -5.86 gram recon soln Discontinued 240 ML PO Q10M 3999 02July 09, 2024 2:26pm September 10, 2024 9:10am until fecal effluent is clear 0.25 mg, 0.5 mg dose 1.5 ml semaglutide 1.34 mg/ml pen injector (16 sources) Start: 08-23-2021 Ozempic (0.25 or 0.5 MG/DOSE) 2 MG/1.5ML 0.5 mg Subcutaneous weekly for 30 days Aug, Not-Taking Ozempic (0.25 or 0.5 MG/DOSE) 2 MG/1.5ML as directed Subcutaneous weekly for 30 days Not-Taking Semaglutide (10 sources) Start: 11-14-2023 End: 03-09-2024 Semaglutide (Ozempic) 0.25 m g or 0.5 mg (2 mg/3 mL) pen injector Discontinued 0.25 MG SUBCUT every week 4.784 90 November 14, 2023 12:00am March 09, 2024 12:33pm Start: 11-14-2023 End: 03-09-2024 Semaglutide (Ozempic) 0.25 m g or 0.5 mg (2 mg/3 mL) pen injector Discontinued 0.25 MG SUBCUT every week 4.784 November 13, 2023 11:00pm March 09, 2024 11:33am Start: 11-14-2023 Semaglutide (O zempic) 0.25 mg or 0.5 mg (2 mg/3 mL) pen injector Active 0.25 MG SUBCUT every week 4.784 90 November 13, 2023 11:00pm Semaglutide Base 0.3 mg/0.25 mL (17 sources) Start: 03-09-2024 End: 03-09-2024 inject 1 mL by subcutaneous injection every week Semaglutide Base 0.3 mg/0.25 mL Discontinued 0.25 ML SUBCUT every week March 09, 2024 1:00am March 09, 2024 12:52pm [facility] Pre-filled Syringes using Semaglutide Base. Dispense 1 mL = (Four 0.25 mL pre-filled syringes) Start: 03-09-2024 End: 03-09-2024 inject 1 mL by subcutaneous injection every week Semaglutide Base 0.3 mg/0.25 mL Discontinued 0.25 ML SUBCUT every week March 09, 2024 12:00am March 09, 2024 11:52am [facility] Pre-filled Syringes using Semaglutide Base. Dispense 1 mL = (Four 0.25 mL pre-filled syringes) Start: 10-28-2023 End: 11-14-2023 inject 1 mL by subcutaneous injection every week Semaglutide Base 0.3 mg/0.25 mL Discontinued 0.25 ML SUBCUT every week October 28, 2023 12:00am November 14, 2023 11:19am [facility] Pre-filled Syringes using Semaglutide Base. Dispense 1 mL = (Four 0.25 mL pre-filled syringes) Start: 10-28-2023 End: 11-14-2023 inject 1 mL by subcutaneous injection every week Semaglutide Base 0.3 mg/0.25 mL Discontinued 0.25 ML SUBCUT every week October 27, 2023 11:00pm November 14, 2023 10:19am [facility] Pre-filled Syringes using Semaglutide Base. Dispense 1 mL = (Four 0.25 mL pre-filled syringes) Semaglutide Base 0.6 mg/0.5 mL (13 sources) Start: 05-04-2024 End: 06-29-2024 inject 1 mL by subcutaneous injection every week Semaglutide Base 0.6 mg/0.5 mL Discontinued 0.5 ML SUBCUT every week May 04, 2024 11:30am June 29, 2024 11:51am [facility] Pre-filled Syringes using Semaglutide Base. Dispense 2 mL = (Four 0.5 mL pre-filled syringes) Start: 05-04-2024 inject 1 mL by subcu taneous injection every week Semaglutide Base 0.6 mg/0.5 mL Active 0.5 ML SUBCUT every week May 04, 2024 11:30am [facility] Pre-filled Syringes using Semaglutide Base. Dispense 2 mL = (Four 0.5 mL pre-filled syringes) Start: 03-09-2024 End: 05-04-2024 inject 1 mL by subcutaneous injection every week Semaglutide Base 0.6 mg/0.5 mL Discontinued 0.5 ML SUBCUT every week March 09, 2024 1:00am May 04, 2024 11:30am [facility] Pre-filled Syringes using Semaglutide Base. Dispense 2 mL = (Four 0.5 mL pre-filled syringes) Start: 03-09-2024 inject 1 mL by subcu taneous injection every week Semaglutide Base 0.6 mg/0.5 mL Active 0.5 ML SUBCUT every week March 09, 2024 12:00am [facility] Pre-filled Syringes using Semaglutide Base. Dispense 2 mL = (Four 0.5 mL pre-filled syringes) Sod Picosulf-Mag Ox-Citric Ac (7 sources) Start: 04-02-2024 End: 09-10-2024 take 1 dose by mouth once daily in the evening Sod Picosulf-Mag Ox-Citric Ac (Clenpiq) 10 mg-3.5 gram- 12 gram/175 mL solution Discontinued 175 ML PO Daily 175 April 02, 2024 1:00am September 10, 2024 9:09am take first dose at 3:00 pm the day before colonoscopy, take second dose at 9:00 pm the day before colonoscopy. Start: 04-02-2024 take 1 dose by mouth once daily in the evening Start: 04-02-2024 take 1 dose by mouth once daily in the evening Sod Picosulf-Mag Ox-Citric Ac (Clenpiq) 10 mg-3.5 gram- 12 gram/175 mL solution Active 175 ML PO Daily 175 April 02, 2024 1:00am take first dose at 3:00 pm the day before colonoscopy, take second dose at 9:00 pm the day before colonoscopy. Start: 04-02-2024 take 1 dose by mouth once daily in the evening Sod Picosulf-Mag Ox-Citric Ac (Clenpiq) 10 mg-3.5 gram- 12 gram/175 mL solution Active 175 ML PO Daily 175 April 02, 2024 12:00am take first dose at 3:00 pm the day before colonoscopy, take second dose at 9:00 pm the day before colonoscopy. Problems Active Problems Problem Classification Problem Date Documented Da te Episodic/Chronic Anxiety disorders (20 sources) Anxiety; Translations: [Anxiety disorder, unspecified] Onset: 09-30-2023 08-28-2023 Chronic Cardiac dysrhythmias (20 sources) Atrial fibrillation; Translations: [Unspecified atrial fibrillation] Onset: 05-23-2020 Resolved: 04-09-2023 Chronic Chronic kidney disease (20 sources) Chronic kidney disease; Translations: [Chronic kidney disease, unspecified] Onset: 04-09-2021 Resolved: 09-27-2021 Chronic Conduction disorders (19 sources) Presence of cardiac pacemaker; Translations: [Cardiac pacemaker in situ] Onset: 01-22-2022 Resolved: 04-09-2023 Chronic Congestive heart failure; nonhypertensive (20 sources) Acute on chronic systolic (congestive) heart failure; Translations: [Heart failure, unspecified] Onset: 03-28-2022 Resolved: 04-09-2023 Chronic Diabetes mellitus without complication (20 sources) Prediabetes; Translations: [Prediabetes] Onset: 05-15-2021 Resolved: 09-27-2021 Episodic Disorders of lipid metabolism (20 sources) Hypercholesterolemia ; Translations: [Pure hypercholesterolemia , unspecified] Onset: 05-15-2021 Resolved: 09-27-2021 Chronic Essential hypertension (20 sources) Hypertensive disorder; Translations: [Essential (primary) hypertension] Onset: 06-27-2020 Resolved: 04-09-2023 Chronic Fluid and electrolyte disorders (1 source) Hypokalemia; Translations: [HYPOKALEMIA] Onset: 03-28-2022 Episodic Heart valve disorders (17 sources) Nonrheumatic mitral (valve) insufficiency; Translations: [Rheumatic tricuspid insufficiency] Onset: 08-19-2021 Resolved: 04-09-2023 04-09-2023 Chronic Hypertension with complications and secondary hypertension (5 sources) Hypertensive heart disease with heart failure; Translations: [HTN HEART DISEASE W/HEART FAIL] Onset: 03-22-2022 Chronic Mood disorders (20 sources) Major depression, single episode; Translations: [Major depressive disorder, single episode, unspecified] Onset: 04-09-2021 Resolved: 09-27-2021 Chronic Mood disorders (1 source) Mood disorders; Translations: [DEPRESSION UNSPECIFIED] Onset: 03-28-2022 Open wounds of extremities (10 sources) Cat bite - wound; Translations: [Open bite of unspecified hand, initial encounter] 04-13-2024 Episodic Other aftercare (1 source) Other shelter (current) drug therapy; Translations: [OTH NURSING HOME CURRENT DRUG THERAPY] Onset: 03-28-2022 Episodic Other aftercare (1 source) care home (current) use of anticoagulants; Translations: [SPINNER HAND CURRNT USE ANTICOAGULANTS] Onset: 03-28-2022 Episodic Other liver diseases (20 sources) Steatosis of liver; Translations: [Fatty (change of) liver, not elsewhere classified] Onset: 03-24-2024 08-26-2023 Chronic Other liver diseases (20 sources) Fatty (change of) liver, not elsewhere classified; Translations: [Other chronic nonalcoholic liver disease] Onset: 04-09-2021 Resolved: 09-27-2021 Chronic Other lower respiratory disease (14 sources) Snoring; Translations: [SNORING] Onset: 04-09-2021 Resolved: 09-27-2021 Episodic Other lower respiratory disease (1 source) Hypoxemia; Translations: [HYPOXEMIA] Onset: 03-28-2022 Episodic Other lower respiratory disease (2 sources) Hypoxia; Translations: [Hypoxemia] 04-20-2024 Episodic Other lower respiratory disease (2 sources) Snoring; Translations: [Snoring] 04-20-2024 Episodic Other nervous system disorders (12 sources) Disturbance in speech; Translations: [Unspecified speech disturbances] Onset: 03-24-2024 03-04-2024 Episodic Other nervous system disorders (4 sources) Unspecified speech disturbances; Translations: [Other speech disturbance] 03-04-2024 Episodic Other non-traumatic joint disorders (3 sources) [...] Chronic Other nutritional; endocrine; and metabolic disorders (12 sources) Obesity, unspecified Onset: 04-19-2021 Resolved: 09-27-2021 Chronic Other nutritional; [...] Episodic Other nutritional; endocrine; and metabolic disorders (13 sources) Overweight; Translations: [Overweight] Episodic Other nutritional; endocrine; and metabolic disorders (1 source) Body mass index (BMI) 29.0-29.9, adult Episodic Other nutritional; endocrine; and metabolic disorders (17 sources) Body mass index 25-29 - overweight; Translations: [Overweight] 08-26-2023 Episodic Other screening for suspected conditions (not mental disorders or infectious disease) (20 sources) Patient encounter status; Translations: [Encounter for screening for osteoporosis] Onset: 10-23-2016 Resolved: 04-09-2023 08-28-2023 Episodic Other upper respiratory disease (2 sources) Hoarse; Translations: [Dysphonia] 03-24-2024 Episodic Other upper respiratory infections (15 sources) Maxillary sinusitis; Translations: [Chronic maxillary sinusitis] Onset: 03-24-2024 12-30-2023 Chronic Alina-; endo-; and myocarditis; cardiomyopathy (except that caused by tuberculosis or sexually transmitted disease) (1 source) Other cardiomyopathies; Translations: [OTHER CARDIOMYOPATHIES] Onset: 03-28-2022 Chronic Residual codes; unclassified (20 sources) Obstructive sleep apnea (adult) (pediatric); Translations: [Obstructive sleep apnea (adult)(pediatric)] Onset: 10-09-2021 Chronic Residual codes; unclassified (20 sources) Obstructive sleep apnea syndrome; Translations: [Obstructive sleep apnea (adult) (pediatric)] Onset: 04-21-2022 Resolved: 04-09-2023 08-26-2023 Chronic Comment on above: CPAP Residual codes; unclassified (2 sources) Sleep apnea; Translations: [Sleep apnea, unspecified] Chronic Residual codes; unclassified (2 sources) Hypersomnia; Translations: [Hypersomnia, unspecified] 04-20-2024 Chronic Residual codes; unclassified (1 source) Acquired absence of other specified parts of digestive tract; Translations: [ACQ ABSENCE OTH PART DIGESTV TRACT] Onset: 03-28-2022 Episodic Residual codes; unclassified (1 source) Other specified health status Episodic Residual codes; unclassified (16 sources) Postmenopausal state; Translations: [Asymptomatic menopausal state] Onset: 09-30-2023 08-28-2023 Episodic Residual codes; unclassified (2 sources) Asymptomatic menopausal state; Translations: [Asymptomatic postmenopausal status (age-related) (natural)] 08-28-2023 Episodic Screening and history of mental health and substance abuse codes (1 source) Personal history of nicotine dependence; Translations: [PERSONAL HISTORY OF NICOTINE DEPEND] Onset: 03-28-2022 Episodic Unclassified (1 source) CONTACT W/AND (SUSP) EXPOS COVID-19; Translations: [CONTACT W/AND (SUSP) EXPOS COVID-19] Onset: 03-28-2022 Unclassified (3 sources) Longstanding persistent atrial fibrillation; Translations: [LONGSTNDNG PERSIST ATRIAL FIBRILLTN] Onset: 03-28-2022 Unclassified (1 source) Other ventricular tachycardia; Translations: [Other ventricular tachycardia] Onset: 09-30-2023 Past or Other Problems Problem Classification Problem Date Documented Date Episodic/Chronic Hepatitis (5 sources) Nonalcoholic steatohepatitis; Translations: [Nonalcoholic steatohepatitis (HAMM)] Onset: 10-23-2016 Resolved: 04-09-2023 04-09-2023 Chronic Malaise and fatigue (1 source) Other fatigue; Translations: [OTHER FATIGUE] Onset: 09-08-2021 Episodic Unclassified (1 source) Other ventricular tachycardia; Translations: [Other ventricular tachycardia] Onset: 09-30-2023 Results Test Name Value Interpretation Reference Range Facility Orders Onlyon 09-03-2024 Orders Only [id number] Penny Diane 1950 F Date Provider Department [place] 09/03/2024 [id number], HISTORICAL [facility] Marilin Olivo Family History Problem Relation Age of Onset Hypertension Mother Cancer Sister Family Status - Relation Status Age at Mother Father Sister Brother Alive Normal [facility] Basophils Auto (Bld) [#/Vol] on 06-23-2024 Basophils (Bld) [#/Vol] 0.0 10 3/uL 0.0-0.1 [facility] Basophils/100 WBC Auto (Bld) on 06-23-2024 Basophils/100 WBC (Bld) 0.6 % 0.2-2.0 [facility] Eosinophils/100 WBC Auto (Bl d)on 06-23-2024 Eosinophils/100 WBC (Bld) 3.8 % 0.9-7.0 [facility] Erythrocyte distribution wid th Auto (RBC) [Ratio]on 06-23-2024 Erythrocyte distribution width (RBC) [Ratio] 13.9 % 11.0-15.0 [facility] Estimated glomerular filtrat ion rate (GFR) non- Americanon 06-23-2024 GFR/1.73 sq M.predicted among non-blacks MDRD (S/P/Bld) [Vol rate/Area] 52 mL/min/{1.73_m2} Low >=60 mL/min/1.73m 2 [facility] Hematocrit Auto (Bld) [Volum e fraction]on 06-23-2024 Hematocrit (Bld) [Volume fraction] 43.9 % 36.0-48.0 [facility] Hemoglobin [Mass/volume] in Bloodon 06-23-2024 Hemoglobin (Bld) [Mass/Vol] 14.6 g/dL 12.0-16.0 [facility] Laboratory - Chemistry and C hemistry - challengeon 06-23-2024 Calcium [Mass/Vol] 9.3 mg/dL 8.5-10.1 [facility] Chloride [Moles/Vol] 106 mmol/L 98-107 [facility] CO2 [Moles/Vol] 29.0 mmol/L 21.0-32.0 [facility] Creatinine [Mass/Vol] 1.03 mg/dL High 0.55-1.02 [facility] GFR/1.73 sq M.predicted MDRD (S/P/Bld) [Vol rate/Area] mL/min/{1.73_m2} >=60 mL/min/1.73m 2 [facility] Glucose [Mass/Vol] 98 mg/dL 74-106 [facility] Potassium [Moles/Vol] 3.8 mmol/L 3.5-5.1 [facility] Sodium [Moles/Vol] 143 mmol/L 136-145 [facility] Urea nitrogen [Mass/Vol] 18.0 mg/dL 7.0-18.0 [facility] Urea nitrogen/Creatinine [Mass ratio] 17.5 mg/mg [facility] Laboratory - Hematology and Cell countson 06-23-2024 Immature granulocytes/100 WBC (Bld) 0.2 % 0.0-0.5 [facility] Leukocytes [#/volume] correc kathie for nucleated erythrocytes in Blood by Automated counon 06-23-2024 WBC corrected for nucl RBC Auto (Bld) [#/Vol] 5.2 10 3/uL 4.0-11.0 [facility] Lymphocytes Auto (Bld) [#/Vo l]on 06-23-2024 Lymphocytes (Bld) [#/Vol] 1.5 10 3/uL 1.2-3.8 [facility] Lymphocytes/100 WBC Auto (Bl d)on 06-23-2024 Lymphocytes/100 WBC (Bld) 28.9 % 20.5-60.0 [facility] MCH Auto (RBC) [Entitic mass ]on 06-23-2024 MCH (RBC) [Entitic mass] 31.8 pg 26.7-34.0 [facility] MCHC Auto (RBC) [Mass/Vol]on 06-23-2024 MCHC (RBC) [Mass/Vol] 33.3 g/dL 29.9-35.2 [facility] MCV Auto (RBC) [Entitic vol] on 06-23-2024 MCV (RBC) [Entitic vol] 95.6 fL 81.0-99.0 [facility] Monocytes Auto (Bld) [#/Vol] on 06-23-2024 Monocytes (Bld) [#/Vol] 0.5 10 3/uL 0.3-0.8 [facility] Monocytes/100 WBC Auto (Bld) on 06-23-2024 Monocytes/100 WBC (Bld) 9.0 % 1.7-12.0 [facility] Neutrophils Auto (Bld) [#/Vo l]on 06-23-2024 Neutrophils (Bld) [#/Vol] 3.0 10 3/uL 1.4-6.5 [facility] Neutrophils/100 WBC Auto (Bl d)on 06-23-2024 Neutrophils/100 WBC (Bld) 57.5 % 43.0-75.0 [facility] No Panel Informationon 06-23 Eosinophils # (Auto) 0.2 10 3/uL 0.0-0.7 [facility] Immature Granulocyte # (Auto) 0.01 10 3/uL 0.00-0.03 [facility] Platelet mean volume Auto (B ld) [Entitic vol]on 06-23-2024 Platelet mean volume (Bld) [Entitic vol] 9.8 fL 9.5-13.5 [facility] Platelets Auto (Bld) [#/Vol] on 06-23-2024 Platelets (Bld) [#/Vol] 192 10 3/uL 150-450 [facility] RBC Auto (Bld) [#/Vol]on RBC (Bld) [#/Vol] 4.59 10 6/uL 4.20-5.40 [facility] Serum or plasma anion gap de terminationon 06-23-2024 Anion gap [Moles/Vol] 11.8 mmol/L [facility] Office Visiton 06-17-2024 Follow-up visit [id number] Penny Diane 1950 F Date Provider Department Center 06/17/2024 [id number], ADAM CARD [facility] Family History Problem Relation Age of Onset Hypertension Mother Cancer Sister Family Status - Relation Status Age at Mother Father Sister Brother Alive Level of Service:86844 MD OFFICE/OUTPATIENT ESTABLISHED MOD MDM 30 MIN Normal [facility] Cholesterol in LDL Calc [Mas s/Vol]on 06-14-2024 Cholesterol in LDL [Mass/Vol] 55.0 mg/dL [facility] Comment on above: <100 mg/dl [id number] 0-129 mg/dl NEAR OR ABOVE [id number] mg/dl BORDERLINE [id number] mg/dl HIGH>190 mg/dl VERY HIGH Cholesterol in VLDL Calc [Ma ss/Vol]on 06-14-2024 Cholesterol in VLDL [Mass/Vol] 14.0 mg/dL [facility] Laboratory - Chemistry and C hemistry - challengeon 06-14-2024 Cholesterol [Mass/Vol] 135 mg/dL <=200 [facility] Cholesterol in HDL [Mass/Vol] 66 mg/dL High 40-60 [facility] Comment on above: > or =60 mg/dl - LOW CARDIOVASCULAR RISK<40 mg/dl - HIGH CARDIOVASCULAR RISK Triglyceride [Mass/Vol] 70 mg/dL <=150 [facility] Serum or plasma total choles terol/high density lipoprotein (HDL) cholesterol mass sheng 06-14-2024 Cholesterol.total/Ch olesterol in HDL [Mass ratio] 2.0 {ratio} [facility] Comment on above: 3.3 - 4.4 LOW RISK4. 4 - 7.1 AVERAGE RISK7.1 - 11.0 MODERATE RISK>11.0 [facility] Office Visiton 03-26-2024 Follow-up visit [id number] Penny Diane 1950 F Date Provider Department Center 03/26/2024 [id number] MARY Family History Problem Relation Age of Onset Hypertension Mother Family Status - Relation Status Age at Mother Level of Service:17788 MD OFFICE/OUTPATIENT ESTABLISHED MOD MDM 30 MIN Normal [facility] Basophils Auto (Bld) [#/Vol] on 03-04-2024 Basophils (Bld) [#/Vol] Automated basophil count 0.0-0.1 [facility] Basophils/100 WBC Auto (Bld) on 03-04-2024 Basophils/100 WBC (Bld) Automated basophil % 0.2-2.0 [facility] Cholesterol in LDL Calc [Mas s/Vol]on 03-04-2024 Cholesterol in LDL [Mass/Vol] Cholesterol in LDL [Mass/volume] in Serum or Plasma by calculation [facility] Comment on above: <100 mg/dl [id number] 0-129 mg/dl NEAR OR ABOVE [id number] mg/dl BORDERLINE [id number] mg/dl HIGH>190 mg/dl VERY HIGH Cholesterol in VLDL Calc [Ma ss/Vol]on 03-04-2024 Cholesterol in VLDL [Mass/Vol] Cholesterol in VLDL [Mass/volume] in Serum or Plasma by calculation [facility] Eosinophils/100 WBC Auto (Bl d)on 03-04-2024 Eosinophils/100 WBC (Bld) Automated eosinophil % 0.9-7.0 [facility] Erythrocyte distribution wid th Auto (RBC) [Ratio]on 03-04-2024 Erythrocyte distribution width (RBC) [Ratio] Erythrocyte distribution width [Ratio] by Automated count 11.0-15.0 [facility] Estimated glomerular filtrat ion rate (GFR) non- Americanon 03-04-2024 GFR/1.73 sq M.predicted among non-blacks MDRD (S/P/Bld) [Vol rate/Area] Estimated glomerular filtration rate (GFR) non- Low >=60 mL/min/1.73m 2 [facility] Globulin Calc (S) [Mass/Vol] on 03-04-2024 Globulin (S) [Mass/Vol] Serum globulin measurement by calculation (mass/volume) [facility] Glucose mean value [Mass/vol ume] in Blood Estimated from glycated hemoglobinon 03-04-2024 Average glucose Estimated from glycated hemoglobin (Bld) [Mass/Vol] Glucose mean value [Mass/volume] in Blood Estimated from glycated hemoglobin [facility] Hematocrit Auto (Bld) [Volum e fraction]on 03-04-2024 Hematocrit (Bld) [Volume fraction] Hematocrit [Volume Fraction] of Blood by Automated count High 36.0-48.0 [facility] Hemoglobin A1c percentageon 03-04-2024 HbA1c (Bld) [Mass fraction] Hemoglobin A1c percentage 4.5-6.2 [facility] Comment on above: ADA RECOMMENDED LIMI T 4.0 - 6.0ADA THERAPEUTIC TARGET < 7.0ACTION SUGGESTED> 7.0 Hemoglobin [Mass/volume] in Bloodon 03-04-2024 Hemoglobin (Bld) [Mass/Vol] Hemoglobin [Mass/volume] in Blood 12.0-16.0 [facility] Laboratory - Chemistry and C hemistry - challengeon 03-04-2024 Albumin [Mass/Vol] 3.3 g/dL Low 3.4-5.0 [facility] ALP [Catalytic activity/Vol] 111 U/L 46-116 [facility] ALT [Catalytic activity/Vol] 30 U/L 14-59 [facility] AST [Catalytic activity/Vol] 21 U/L 15-37 [facility] Bilirubin [Mass/Vol] 0.6 mg/dL 0.2-1.0 [facility] Calcium [Mass/Vol] 9.5 mg/dL 8.5-10.1 [facility] Chloride [Moles/Vol] 106 mmol/L 98-107 [facility] Cholesterol [Mass/Vol] 184 mg/dL <=200 [facility] Cholesterol in HDL [Mass/Vol] 64 mg/dL High 40-60 [facility] Comment on above: > or =60 mg/dl - LOW CARDIOVASCULAR RISK<40 mg/dl - HIGH CARDIOVASCULAR RISK CO2 [Moles/Vol] 31.6 mmol/L 21.0-32.0 [facility] Creatinine [Mass/Vol] 1.14 mg/dL High 0.55-1.02 [facility] GFR/1.73 sq M.predicted MDRD (S/P/Bld) [Vol rate/Area] 56 mL/min/{1.73_m2} Low >=60 mL/min/1.73m 2 [facility] Glucose [Mass/Vol] 86 mg/dL 74-106 [facility] Potassium [Moles/Vol] 4.3 mmol/L 3.5-5.1 [facility] Protein [Mass/Vol] 7.4 g/dL 6.4-8.2 [facility] Sodium [Moles/Vol] 144 mmol/L 136-145 [facility] Triglyceride [Mass/Vol] 81 mg/dL <=150 [facility] TSH Qn 1.626 m[IU]/L 0.358-3.740 [facility] Urea nitrogen [Mass/Vol] 15.0 mg/dL 7.0-18.0 [facility] Urea nitrogen/Creatinine [Mass ratio] 13.2 mg/mg [facility] Laboratory - Hematology and Cell countson 03-04-2024 Immature granulocytes/100 WBC (Bld) 0.2 % 0.0-0.5 [facility] Leukocytes [#/volume] correc kathie for nucleated erythrocytes in Blood by Automated counon 03-04-2024 WBC corrected for nucl RBC Auto (Bld) [#/Vol] Leukocytes [#/volume] corrected for nucleated erythrocytes in Blood by Automated coun 4.0-11.0 [facility] Lymphocytes Auto (Bld) [#/Vo l]on 03-04-2024 Lymphocytes (Bld) [#/Vol] Lymphocytes [#/volume] in Blood by Automated count 1.2-3.8 [facility] Lymphocytes/100 WBC Auto (Bl d)on 03-04-2024 Lymphocytes/100 WBC (Bld) Lymphocytes/100 leukocytes in Blood by Automated count 20.5-60.0 [facility] MCH Auto (RBC) [Entitic mass ]on 03-04-2024 MCH (RBC) [Entitic mass] MCH [Entitic mass] by Automated count 26.7-34.0 [facility] MCHC Auto (RBC) [Mass/Vol]on 03-04-2024 MCHC (RBC) [Mass/Vol] MCHC [Mass/volume] by Automated count 29.9-35.2 [facility] MCV Auto (RBC) [Entitic vol] on 03-04-2024 MCV (RBC) [Entitic vol] MCV [Entitic volume] by Automated count 81.0-99.0 [facility] Monocytes Auto (Bld) [#/Vol] on 03-04-2024 Monocytes (Bld) [#/Vol] Automated blood monocyte count 0.3-0.8 [facility] Monocytes/100 WBC Auto (Bld) on 03-04-2024 Monocytes/100 WBC (Bld) Automated monocyte % 1.7-12.0 [facility] Neutrophils Auto (Bld) [#/Vo l]on 03-04-2024 Neutrophils (Bld) [#/Vol] Neutrophils [#/volume] in Blood by Automated count 1.4-6.5 [facility] Neutrophils/100 WBC Auto (Bl d)on 03-04-2024 Neutrophils/100 WBC (Bld) Automated neutrophil % 43.0-75.0 [facility] No Panel Informationon 03-04 Eosinophils # (Auto) 0.2 10 3/uL 0.0-0.7 [facility] Immature Granulocyte # (Auto) 0.01 10 3/uL 0.00-0.03 [facility] Platelet mean volume Auto (B ld) [Entitic vol]on 03-04-2024 Platelet mean volume (Bld) [Entitic vol] Platelet mean volume [Entitic volume] in Blood by Automated count Low 9.5-13.5 [facility] Platelets Auto (Bld) [#/Vol] on 03-04-2024 Platelets (Bld) [#/Vol] Platelets [#/volume] in Blood by Automated count 150-450 [facility] RBC Auto (Bld) [#/Vol]on RBC (Bld) [#/Vol] Erythrocytes [#/volume] in Blood by Automated count 4.20-5.40 [facility] Serum or plasma albumin/glob ulin mass ratioon 03-04-2024 Albumin/Globulin [Mass ratio] Serum or plasma albumin/globulin mass ratio [facility] Serum or plasma anion gap de terminationon 03-04-2024 Anion gap [Moles/Vol] Serum or plasma anion gap determination [facility] Serum or plasma total choles terol/high density lipoprotein (HDL) cholesterol mass sheng 03-04-2024 Cholesterol.total/Ch olesterol in HDL [Mass ratio] Serum or plasma total cholesterol/high density lipoprotein (HDL) cholesterol mass rat [facility] Comment on above: 3.3 - 4.4 LOW RISK4. 4 - 7.1 AVERAGE RISK7.1 - 11.0 MODERATE RISK>11.0 HIGH RISK 36on 10-22-2023 36 Please let her know her stress test was negative. Continue with increased dose of Toprol and follow-up as planned in 6 months. Thanks! [facility] Telephoneon 10-22-2023 Telephone [id number] Penny Diane 1950 Provider Department Center 10/22/2023 JACI LAMAS MC CARD [facility]. Family History Problem Relation Age of Onset Hypertension Mother Family Status - Relation Status Age at Mother [facility] 37on 09-30-2023 37 *We will proceed with [...] *Continue all other medications as prescribed. Normal [facility] Office Visiton 09-30-2023 Follow-up visit [id number] Penny Diane 1950 F Date Provider Department Center 09/30/2023 JACI LAMAS CARD [facility] Family History Problem Relation Age of Onset Hypertension Mother Family Status - Relation Status Age at Mother Level of Service:12467 MD OFFICE/OUTPATIENT ESTABLISHED MOD MDM 30 MIN Reason for Visit and Comments: Atrial Fibrillation [80] Hypertension [612180] NSVT [Other] Normal [facility] A1C HEMOGLOBINon 08-06-2022 HbA1c (Bld) [Mass fraction] 5.4 % [facility] Other HbA1c (Bld) [Mass fraction]o n 08-06-2022 A1C HEMOGLOBIN [facility] Other PROF CHEM 8 (BAS METB)on Anion gap [Moles/Vol] 11.7 mmol/L Normal [facility] Comment on above: Performed By: #### B MP #### [facility] [address] [address] [address] Baldemar Rodriguez Calcium [Mass/Vol] 9.3 mg/dL Normal 8.5-10.1 [facility] Comment on above: Performed By: #### B MP #### [facility] [address] [address] [address] Baldemar Rodriguez Chloride [Moles/Vol] 106 mmol/L Normal 98-107 [facility] Comment on above: Performed By: #### B MP #### [facility] [address] [address] [address] Baldemar Rodriguez CO2 [Moles/Vol] 31.2 mmol/L Normal 21.0-32.0 [facility] Comment on above: Performed By: #### B MP #### [facility] [address] [address] [address] Baldemar Rodriguez Creatinine [Mass/Vol] 0.92 mg/dL Normal 0.55-1.02 [facility] Comment on above: Performed By: #### B MP #### [facility] [address] [address] [address] Baldemar Rodriguez EGFR-AF AFGHAN >60 Normal >=60 [facility] Comment on above: Performed By: #### B MP #### [facility] [address] [address] [address] Baldemar Rodriguez EGFR-NON AF AFGHAN =60 Normal >=60 [facility] Comment on above: Performed By: #### B MP #### [facility] [address] [address] [address] Baldemar Rodriguez Glucose [Mass/Vol] 96 mg/dL Normal 74-106 [facility] Comment on above: Performed By: #### B MP #### [facility] [address] [address] [address] Baldemar Rodriguez Potassium [Moles/Vol] 3.9 mmol/L Normal 3.5-5.1 [facility] Comment on above: Performed By: #### B MP #### [facility] [address] [place] [address] Dr. Baldemar Rodriguez Sodium [Moles/Vol] 145 mmol/L Normal 136-145 [facility] Comment on above: Performed By: #### B MP #### [facility] [address] [address] [address] Baldemar Rodriguez Urea nitrogen [Mass/Vol] 13.0 mg/dL Normal 7.0-18.0 [facility] Comment on above: Performed By: #### B MP #### [facility] [address] [place] [address] Dr. Baldemar Rodriguez Urea nitrogen/Creatinine [Mass ratio] 14.1 mg/mg Normal [facility] Comment on above: Performed By: #### B MP #### [facility] [address] [address] [address] Baldemar Rodriguez PROF CHEM 8 (BAS METB)on Anion gap [Moles/Vol] 8.8 mmol/L Normal [facility] Comment on above: Performed By: #### B MP #### [facility] [address] [address] [address] Baldemar Rodriguez Calcium [Mass/Vol] 9.5 mg/dL Normal 8.5-10.1 [facility] Comment on above: Performed By: #### B MP #### [facility] [address] [address] [address] Baldemar Rodriguez Chloride [Moles/Vol] 103 mmol/L Normal 98-107 [facility] Comment on above: Performed By: #### B MP #### [facility] [address] [address] [address] Baldemar Rodriguez CO2 [Moles/Vol] 32.5 mmol/L Critically high 21.0-32.0 [facility] Comment on above: Performed By: #### B MP #### [facility] [address] [address] [address] Baldemar Rodriguez Creatinine [Mass/Vol] 0.92 mg/dL Normal 0.55-1.02 [facility] Comment on above: Performed By: #### B MP #### [facility] [address] [place] [address] Dr. Baldemar Rodriguez EGFR-AF AFGHAN >60 Normal >=60 [facility] Comment on above: Performed By: #### B MP #### [facility] [address] [address] [address] Baldemar Rodriguez EGFR-NON AF AFGHAN =60 Normal >=60 [facility] Comment on above: Performed By: #### B MP #### [facility] [address] [place] [address] Dr. Baldemar Rodriguez Glucose [Mass/Vol] 79 mg/dL Normal 74-106 [facility] Comment on above: Performed By: #### B MP #### [facility] [address] [address] [address] Baldemar Rodriguez Potassium [Moles/Vol] 4.3 mmol/L Normal 3.5-5.1 [facility] Comment on above: Performed By: #### B MP #### [facility] [address] [address] [address] Baldemar Rodriguez Sodium [Moles/Vol] 140 mmol/L Normal 136-145 [facility] Comment on above: Performed By: #### B MP #### [facility] [address] [address] [address] Baldemar Rodriguez Urea nitrogen [Mass/Vol] 19.0 mg/dL Critically high 7.0-18.0 [facility] Comment on above: Performed By: #### B MP #### [facility] [address] [place] [address] Dr. Baldemar Rodriguez Urea nitrogen/Creatinine [Mass ratio] 20.7 mg/mg Normal [facility] Comment on above: Performed By: #### B MP #### [facility] [address] [place] [address] Dr. Baldemar Rodriguez CBC AUTO DIFFon 03-26-2022 BASO # 0.0 103/ul Normal 0.0-0.1 [facility] Comment on above: Performed By: #### B MP #### [facility] [address] [place] [address] Dr. Baldemar Rodriguez Basophils/100 WBC (Bld) 0.6 % Normal 0.2-2.0 [facility] Comment on above: Performed By: #### B MP #### [facility] [address] [place] [address] Dr. Baldemar Rodriguez EO # 0.3 103/ul Normal 0.0-0.7 [facility] Comment on above: Performed By: #### B MP #### [facility] [address] [place] [address] Dr. Baldemar Rodriguez Eosinophils/100 WBC (Bld) 4.7 % Normal 0.9-7.0 [facility] Comment on above: Performed By: #### B MP #### [facility] [address] [place] [address] Dr. Baldemar Rodriguez Erythrocyte distribution width (RBC) [Ratio] 14.7 % Normal 11.0-15.0 [facility] Comment on above: Performed By: #### B MP #### [facility] [address] [place] [address] Dr. Baldemar Rodriguez Hematocrit (Bld) [Volume fraction] 39.6 % Normal 36.0-48.0 [facility] Comment on above: Performed By: #### B MP #### [facility] [address] [place] [address] Dr. Baldemar Rodriguez Hemoglobin (Bld) [Mass/Vol] 12.8 g/dL Normal 12.0-16.0 [facility] Comment on above: Performed By: #### B MP #### [facility] [address] [place] [address] Dr. Baldemar Rodriguez IG # 0.02 10e3/ul Normal 0.00-0.03 [facility] Comment on above: Performed By: #### B MP #### [facility] [address] [place] [address] Dr. Baldemar Rodriguez IG % 0.3 % Normal 0.0-0.5 [facility] Comment on above: Performed By: #### B MP #### [facility] [address] [place] [address] Dr. Baldemar Rodriguez LYMPH # 2.3 103/ul Normal 1.2-3.8 [facility] Comment on above: Performed By: #### B MP #### [facility] [address] [place] [address] Dr. Baldemar Rodriguez Lymphocytes/100 WBC (Bld) 33.9 % Normal 20.5-60.0 [facility] Comment on above: Performed By: #### B MP #### [facility] [address] [place] [address] Dr. Baldemar Rodriguez MANUAL DIFF REQ NO Normal [facility] Comment on above: Performed By: #### B MP #### [facility] [address] [place] [address] Dr. Baldemar Rodriguez MCH (RBC) [Entitic mass] 30.0 pg Normal 26.7-34.0 [facility] Comment on above: Performed By: #### B MP #### [facility] [address] [place] [address] Dr. Baldemar Rodriguez MCHC (RBC) [Mass/Vol] 32.3 g/dL Normal 29.9-35.2 [facility] Comment on above: Performed By: #### B MP #### [facility] [address] [place] [address] Dr. Baldemar Rodriguez MCV (RBC) [Entitic vol] 92.7 fL Normal 81.0-99.0 [facility] Comment on above: Performed By: #### B MP #### [facility] [address] [place] [address] Dr. Baldemar Rodriguez MONO # 0.6 103/ul Normal 0.3-0.8 [facility] Comment on above: Performed By: #### B MP #### [facility] [address] [place] [address] Dr. Baldemar Rodriguez Monocytes/100 WBC (Bld) 8.7 % Normal 1.7-12.0 [facility] Comment on above: Performed By: #### B MP #### [facility] [address] [place] [address] Dr. Baldemar Rodriguez NEUT # 3.4 103/ul Normal 1.4-6.5 [facility] Comment on above: Performed By: #### B MP #### [facility] [address] [place] [address] Dr. Baldemar Rodriguez Neutrophils/100 WBC (Bld) 51.8 % Normal 43.0-75.0 [facility] Comment on above: Performed By: #### B MP #### [facility] [address] [place] [address] Dr. Baldemar Rodriguez Platelet mean volume (Bld) [Entitic vol] 9.6 fL Normal 9.5-13.5 [facility] Comment on above: Performed By: #### B MP #### [facility] [address] [place] [address] Dr. Baldemar Rodriguez PLT 233 103/ul Normal 150-450 [facility] Comment on above: Performed By: #### B MP #### [facility] [address] [place] [address] Dr. Baldemar Rodriguez RBC 4.27 106/ul Normal 4.20-5.40 [facility] Comment on above: Performed By: #### B MP #### [facility] [address] [place] [address] Dr. Baldemar Rodriguez WBC 6.6 103/ul Normal 4.0-11.0 [facility] Comment on above: Performed By: #### B MP #### [facility] [address] [address] [address] Baldemar Rodriguez PROF CHEM 8 (BAS METB)on Anion gap [Moles/Vol] 9.2 mmol/L Normal [facility] Comment on above: Performed By: #### B MP #### [facility] [address] [address] [address] Baldemar Rodriguez Calcium [Mass/Vol] 9.2 mg/dL Normal 8.5-10.1 [facility] Comment on above: Performed By: #### B MP #### [facility] [address] [place] [address] Dr. Baldemar Rodriguez Chloride [Moles/Vol] 102 mmol/L Normal 98-107 [facility] Comment on above: Performed By: #### B MP #### [facility] Laboratory [address] [place] [address] Dr. Baldemar Rodriguez CO2 [Moles/Vol] 35.8 mmol/L Critically high 21.0-32.0 [facility] Comment on above: Performed By: #### B MP #### [facility] [address] [place] [address] Dr. Baldemar Rodriguez Creatinine [Mass/Vol] 0.91 mg/dL Normal 0.55-1.02 [facility] Comment on above: Performed By: #### B MP #### [facility] [address] [place] [address] Dr. Baldemar Rodriguez EGFR-AF AFGHAN >60 Normal >=60 [facility] Comment on above: Performed By: #### B MP #### [facility] [address] [address] [address] Baldemar Rodriguez EGFR-NON AF AFGHAN >60 Normal >=60 [facility] Comment on above: Performed By: #### B MP #### [facility] [address] [place] [address] Dr. Baldemar Rodriguez Glucose [Mass/Vol] 93 mg/dL Normal 74-106 [facility] Comment on above: Performed By: #### B MP #### [facility] [address] [address] [address] Baldemar Rodriguez Potassium [Moles/Vol] 3.0 mmol/L Critically low 3.5-5.1 [facility] Comment on above: Performed By: #### B MP #### [facility] [address] [place] [address] Dr. Baldemar Rodriguez Sodium [Moles/Vol] 144 mmol/L Normal 136-145 [facility] Comment on above: Performed By: #### B MP #### [facility] [address] [place] [address] Dr. Baldemar Rodriguez Urea nitrogen [Mass/Vol] 19.0 mg/dL Critically high 7.0-18.0 [facility] Comment on above: Performed By: #### B MP #### [facility] [address] [place] [address] Dr. Baldemar Rodriguez Urea nitrogen/Creatinine [Mass ratio] 20.9 mg/mg Normal [facility] Comment on above: Performed By: #### B MP #### [facility] [address] [place] [address] Dr. Baldemar Rodriguez CBC AUTO DIFFon 03-25-2022 BASO # 0.0 103/ul Normal 0.0-0.1 [facility] Comment on above: Performed By: #### B MP #### [facility] [address] [place] [address] Dr. Baldemar Rodriguez Basophils/100 WBC (Bld) 0.5 % Normal 0.2-2.0 [facility] Comment on above: Performed By: #### B MP #### [facility] [address] [place] [address] Dr. Baldemar Rodriguez EO # 0.3 103/ul Normal 0.0-0.7 [facility] Comment on above: Performed By: #### B MP #### [facility] [address] [place] [address] Dr. Baldemar Rodriguez Eosinophils/100 WBC (Bld) 3.2 % Normal 0.9-7.0 [facility] Comment on above: Performed By: #### B MP #### [facility] [address] [place] [address] Dr. Baldemar Rodriguez Erythrocyte distribution width (RBC) [Ratio] 14.7 % Normal 11.0-15.0 [facility] Comment on above: Performed By: #### B MP #### [facility] [address] [place] [address] Dr. Baldemar Rodriguez Hematocrit (Bld) [Volume fraction] 40.8 % Normal 36.0-48.0 [facility] Comment on above: Performed By: #### B MP #### [facility] [address] [place] [address] Dr. Baldemar Rodriguez Hemoglobin (Bld) [Mass/Vol] 13.4 g/dL Normal 12.0-16.0 [facility] Comment on above: Performed By: #### B MP #### [facility] [address] [place] [address] Dr. Baldemar Rodriguez IG # 0.02 10e3/ul Normal 0.00-0.03 [facility] Comment on above: Performed By: #### B MP #### [facility] [address] [place] [address] Dr. Baldemar Rodriguez IG % 0.2 % Normal 0.0-0.5 [facility] Comment on above: Performed By: #### B MP #### [facility] [address] [place] [address] Dr. Baldemar Rodriguez LYMPH # 2.0 103/ul Normal 1.2-3.8 [facility] Comment on above: Performed By: #### B MP #### [facility] [address] [place] [address] Dr. Baldemar Rodriguez Lymphocytes/100 WBC (Bld) 23.3 % Normal 20.5-60.0 [facility] Comment on above: Performed By: #### B MP #### [facility] [address] [place] [address] Dr. Baldemar Rodriguez MANUAL DIFF REQ NO Normal [facility] Comment on above: Performed By: #### B MP #### [facility] [address] [address] [address] Baldemar Rodriguez MCH (RBC) [Entitic mass] 30.3 pg Normal 26.7-34.0 [facility] Comment on above: Performed By: #### B MP #### [facility] [address] [place] [address] Dr. Baldemar Rodriguez MCHC (RBC) [Mass/Vol] 32.8 g/dL Normal 29.9-35.2 [facility] Comment on above: Performed By: #### B MP #### [facility] [address] [place] [address] Dr. Baldemar Rodriguez MCV (RBC) [Entitic vol] 92.3 fL Normal 81.0-99.0 [facility] Comment on above: Performed By: #### B MP #### [facility] [address] [place] [address] Dr. Baldemar Rodriguez MONO # 0.6 103/ul Normal 0.3-0.8 [facility] Comment on above: Performed By: #### B MP #### [facility] [address] [place] [address] Dr. Baldemar Rodriguez Monocytes/100 WBC (Bld) 7.5 % Normal 1.7-12.0 [facility] Comment on above: Performed By: #### B MP #### [facility] [address] [place] [address] Dr. Baldemar Rodriguez NEUT # 5.5 103/ul Normal 1.4-6.5 [facility] Comment on above: Performed By: #### B MP #### [facility] [address] [place] [address] Dr. Baldemar Rodriguez Neutrophils/100 WBC (Bld) 65.3 % Normal 43.0-75.0 [facility] Comment on above: Performed By: #### B MP #### [facility] [address] [place] [address] Dr. Baldemar Rodriguez Platelet mean volume (Bld) [Entitic vol] 9.4 fL Critically low 9.5-13.5 [facility] Comment on above: Performed By: #### B MP #### [facility] [address] [place] [address] Dr. Baldemar Rodriguez PLT 258 103/ul Normal 150-450 [facility] Comment on above: Performed By: #### B MP #### [facility] [address] [place] [address] Dr. Baldemar Rodriguez RBC 4.42 106/ul Normal 4.20-5.40 [facility] Comment on above: Performed By: #### B MP #### [facility] [address] [place] [address] Dr. Baldemar Rodriguez WBC 8.4 103/ul Normal 4.0-11.0 [facility] Comment on above: Performed By: #### B MP #### [facility] [address] [place] [address] Dr. Baldemar Rodriguez POTASSIUMon 03-25-2022 Potassium [Moles/Vol] 2.7 mmol/L Critically low 3.5-5.1 [facility] Comment on above: Performed By: #### B MP #### [facility] [address] [place] [address] Dr. Baldemar Rodriguez PROF CHEM 8 (BAS METB)on Anion gap [Moles/Vol] 9.8 mmol/L Normal [facility] Comment on above: Performed By: #### B MP #### [facility] [address] [place] [address] Dr. Baldemar Rodriguez Calcium [Mass/Vol] 9.0 mg/dL Normal 8.5-10.1 [facility] Comment on above: Performed By: #### B MP #### [facility] [address] [place] [address] Dr. Baldemar Rodriguez Chloride [Moles/Vol] 100 mmol/L Normal 98-107 [facility] Comment on above: Performed By: #### B MP #### [facility] [address] [place] [address] Dr. Baldemar Rodriguze CO2 [Moles/Vol] 35.8 mmol/L Critically high 21.0-32.0 [facility] Comment on above: Performed By: #### B MP #### [facility] [address] [address] [address] Baldemar Rodriguez Creatinine [Mass/Vol] 0.85 mg/dL Normal 0.55-1.02 [facility] Comment on above: Performed By: #### B MP #### [facility] [address] [address] [address] Baldemar Rodriguez EGFR-AF AFGHAN >60 Normal >=60 [facility] Comment on above: Performed By: #### B MP #### [facility] [address] [address] [address] Baldemar Rodriguez EGFR-NON AF AFGHAN >60 Normal >=60 [facility] Comment on above: Performed By: #### B MP #### [facility] [address] [address] [address] Baldemar Rodriguez Glucose [Mass/Vol] 100 mg/dL Normal 74-106 [facility] Comment on above: Performed By: #### B MP #### [facility] [address] [address] [address] Baldemar Rodriguez Potassium [Moles/Vol] 2.5 mmol/L Critically low 3.5-5.1 [facility] Comment on above: Performed By: #### B MP #### [facility] [address] [address] [address] Baldemar Rodriguez Sodium [Moles/Vol] 142 mmol/L Normal 136-145 [facility] Comment on above: Performed By: #### B MP #### [facility] [address] [address] [address] Baldemar Rodriguez Urea nitrogen [Mass/Vol] 15.0 mg/dL Normal 7.0-18.0 [facility] Comment on above: Performed By: #### B MP #### [facility] [address] [place] [address] Dr. Baldemar Rodriguez Urea nitrogen/Creatinine [Mass ratio] 17.6 mg/mg Normal [facility] Comment on above: Performed By: #### B MP #### [facility] [address] [place] [address] Dr. Baldemar Rodriguez CBC AUTO DIFFon 03-24-2022 BASO # 0.0 103/ul Normal 0.0-0.1 [facility] Comment on above: Performed By: #### C MP, CMADM, BNP #### [facility] [address] [place] [address] Dr. Baldemar Rodriguez Basophils/100 WBC (Bld) 0.4 % Normal 0.2-2.0 [facility] Comment on above: Performed By: #### C MP, CMADM, BNP #### [facility] [address] [place] [address] Dr. Baldemar Rodriguez EO # 0.1 103/ul Normal 0.0-0.7 [facility] Comment on above: Performed By: #### C MP, CMADM, BNP #### [facility] [address] [place] [address] Dr. Baldemar Rodriguez Eosinophils/100 WBC (Bld) 1.2 % Normal 0.9-7.0 [facility] Comment on above: Performed By: #### C MP, CMADM, BNP #### [facility] [address] [place] [address] Dr. Baldemar Rodriguez Erythrocyte distribution width (RBC) [Ratio] 14.9 % Normal 11.0-15.0 [facility] Comment on above: Performed By: #### C MP, CMADM, BNP #### [facility] [address] [place] [address] Dr. Baldemar Rodriguez Hematocrit (Bld) [Volume fraction] 36.3 % Normal 36.0-48.0 [facility] Comment on above: Performed By: #### C MP, CMADM, BNP #### [facility] [address] [place] [address] Dr. Baldemar Rodriguez Hemoglobin (Bld) [Mass/Vol] 11.9 g/dL Critically low 12.0-16.0 [facility] Comment on above: Performed By: #### C MP, CMADM, BNP #### [facility] [address] [place] [address] Dr. Baldemar Rodriguez IG # 0.04 10e3/ul Critically high 0.00-0.03 [facility] Comment on above: Performed By: #### C MP, CMADM, BNP #### [facility] [address] [address] [address] Baldemar Rodriguez IG % 0.4 % Normal 0.0-0.5 [facility] Comment on above: Performed By: #### C MP, CMADM, BNP #### [facility] [address] [place] [address] Dr. Baldemar Rodriguez LYMPH # 2.5 103/ul Normal 1.2-3.8 [facility] Comment on above: Performed By: #### C MP, CMADM, BNP #### [facility] [address] [place] [address] Dr. Baldemar Rodriguez Lymphocytes/100 WBC (Bld) 22.3 % Normal 20.5-60.0 [facility] Comment on above: Performed By: #### C MP, CMADM, BNP #### [facility] [address] [place] [address] Dr. Baldemar Rodriguez MANUAL DIFF REQ NO Normal [facility] Comment on above: Performed By: #### C MP, CMADM, BNP #### [facility] [address] [place] [address] Dr. Baldemar Rodriguez MCH (RBC) [Entitic mass] 30.4 pg Normal 26.7-34.0 [facility] Comment on above: Performed By: #### C MP, CMADM, BNP #### [facility] [address] [place] [address] Dr. Baldemar Rodriguez MCHC (RBC) [Mass/Vol] 32.8 g/dL Normal 29.9-35.2 [facility] Comment on above: Performed By: #### C MP, CMADM, BNP #### [facility] [address] [place] [address] Dr. Baldemar Rodriguez MCV (RBC) [Entitic vol] 92.6 fL Normal 81.0-99.0 [facility] Comment on above: Performed By: #### C MP, CMADM, BNP #### [facility] [address] [place] [address] Dr. Baldemar Rodriguez MONO # 0.7 103/ul Normal 0.3-0.8 [facility] Comment on above: Performed By: #### C MP, CMADM, BNP #### [facility] [address] [place] [address] Dr. Baldemar Rodriguez Monocytes/100 WBC (Bld) 6.1 % Normal 1.7-12.0 [facility] Comment on above: Performed By: #### C MP, CMADM, BNP #### [facility] [address] [place] [address] Dr. Baldemar Rodriguez NEUT # 7.7 103/ul Critically high 1.4-6.5 [facility] Comment on above: Performed By: #### C MP, CMADM, BNP #### [facility] [address] [place] [address] Dr. Baldemar Rodriguez Neutrophils/100 WBC (Bld) 69.6 % Normal 43.0-75.0 [facility] Comment on above: Performed By: #### C MP, CMADM, BNP #### [facility] [address] [place] [address] Dr. Baldemar Rodriguez Platelet mean volume (Bld) [Entitic vol] 9.5 fL Normal 9.5-13.5 [facility] Comment on above: Performed By: #### C MP, CMADM, BNP #### [facility] [address] [place] [address] Dr. Baldemar Rodriguez PLT 237 103/ul Normal 150-450 [facility] Comment on above: Performed By: #### C MP, CMADM, BNP #### [facility] [address] [place] [address] Dr. Baldemar Rodriguez RBC 3.92 106/ul Critically low 4.20-5.40 [facility] Comment on above: Performed By: #### C MP, CMADM, BNP #### [facility] [address] [place] [address] Dr. Baldemar Rodriguez WBC 11.0 103/ul Normal 4.0-11.0 [facility] Comment on above: Performed By: #### C MP, CMADM, BNP #### [facility] [address] [address] [address] Baldemar Rodriguez PROF CHEM 8 (BAS METB)on Anion gap [Moles/Vol] 11.5 mmol/L Normal [facility] Comment on above: Performed By: #### B MP #### [facility] [address] [address] [address] Baldemar Rodriguez Calcium [Mass/Vol] 9.2 mg/dL Normal 8.5-10.1 [facility] Comment on above: Performed By: #### B MP #### [facility] [address] [address] [address] Baldemar Rodriguez Chloride [Moles/Vol] 106 mmol/L Normal 98-107 [facility] Comment on above: Performed By: #### B MP #### [facility] [address] [place] [address] Dr. Baldemar Rodriguez CO2 [Moles/Vol] 29.8 mmol/L Normal 21.0-32.0 [facility] Comment on above: Performed By: #### B MP #### [facility] [address] [address] [address] Baldemar Rodriguez Creatinine [Mass/Vol] 0.81 mg/dL Normal 0.55-1.02 [facility] Comment on above: Performed By: #### B MP #### [facility] [address] [address] [address] Baldemar Rodriguez EGFR-AF AFGHAN >60 Normal >=60 [facility] Comment on above: Performed By: #### B MP #### [facility] [address] [address] [address] Baldemar Rodriguez EGFR-NON AF AFGHAN >60 Normal >=60 [facility] Comment on above: Performed By: #### B MP #### [facility] [address] [address] [address] Baldemar Rodriguez Glucose [Mass/Vol] 102 mg/dL Normal 74-106 [facility] Comment on above: Performed By: #### B MP #### [facility] [address] [address] [address] Baldemar Rodriguez Potassium [Moles/Vol] 3.3 mmol/L Critically low 3.5-5.1 [facility] Comment on above: Performed By: #### B MP #### [facility] [address] [place] [address] Dr. Baldemar Rodriguez Sodium [Moles/Vol] 144 mmol/L Normal 136-145 [facility] Comment on above: Performed By: #### B MP #### [facility] [address] [place] [address] Dr. Baldemar Rodriguez Urea nitrogen [Mass/Vol] 17.0 mg/dL Normal 7.0-18.0 [facility] Comment on above: Performed By: #### B MP #### [facility] [address] [place] [address] Dr. Baldemar Rodriguez Urea nitrogen/Creatinine [Mass ratio] 21.0 mg/mg Normal [facility] Comment on above: Performed By: #### B MP #### [facility] [address] [place] [address] Dr. Baldemar Rodriguez CBC AUTO DIFFon 03-23-2022 BASO # 0.0 103/ul Normal 0.0-0.1 [facility] Comment on above: Performed By: #### C BC #### [facility] [address] [place] [address] Dr. Baldemar Rodriguez Basophils/100 WBC (Bld) 0.0 % Critically low 0.2-2.0 [facility] Comment on above: Performed By: #### C BC #### [facility] [address] [place] [address] Dr. Baldemar Rodriguez EO # 0.0 103/ul Normal 0.0-0.7 [facility] Comment on above: Performed By: #### C BC #### [facility] [address] [place] [address] Dr. Baldemar Rodriguez Eosinophils/100 WBC (Bld) 0.0 % Critically low 0.9-7.0 [facility] Comment on above: Performed By: #### C BC #### [facility] [address] [place] [address] Dr. Baldemar Rodriguez Erythrocyte distribution width (RBC) [Ratio] 14.6 % Normal 11.0-15.0 [facility] Comment on above: Performed By: #### C BC #### [facility] [address] [place] [address] Dr. Baldemar Rodriguez Hematocrit (Bld) [Volume fraction] 34.1 % Critically low 36.0-48.0 [facility] Comment on above: Performed By: #### C BC #### [facility] [address] [place] [address] Dr. Baldemar Rodriguez Hemoglobin (Bld) [Mass/Vol] 11.0 g/dL Critically low 12.0-16.0 [facility] Comment on above: Performed By: #### C BC #### [facility] [address] [place] [address] Dr. Baldemar Rodriguez IG # 0.03 10e3/ul Normal 0.00-0.03 [facility] Comment on above: Performed By: #### C BC #### [facility] [address] [place] [address] Dr. Baldemar Rodriguez IG % 0.7 % Critically high 0.0-0.5 [facility] Comment on above: Performed By: #### C BC #### [facility] [address] [place] [address] Dr. Baldemar Rodriguez LYMPH # 0.9 103/ul Critically low 1.2-3.8 [facility] Comment on above: Performed By: #### C BC #### [facility] [address] [place] [address] Dr. Baldemar Rodriguez Lymphocytes/100 WBC (Bld) 20.7 % Normal 20.5-60.0 [facility] Comment on above: Performed By: #### C BC #### [facility] [address] [place] [address] Dr. Baldemar Rodriguez MANUAL DIFF REQ NO Normal [facility] Comment on above: Performed By: #### C BC #### [facility] [address] [place] [address] Dr. Baldemar Rodriguez MCH (RBC) [Entitic mass] 30.5 pg Normal 26.7-34.0 [facility] Comment on above: Performed By: #### C BC #### [facility] [address] [address] [address] Baldemar Rodriguez MCHC (RBC) [Mass/Vol] 32.3 g/dL Normal 29.9-35.2 [facility] Comment on above: Performed By: #### C BC #### [facility] [address] [place] [address] Dr. Baldemar Rodriguez MCV (RBC) [Entitic vol] 94.5 fL Normal 81.0-99.0 [facility] Comment on above: Performed By: #### C BC #### [facility] [address] [place] [address] Dr. Baldemar Rodriguez MONO # 0.2 103/ul Critically low 0.3-0.8 [facility] Comment on above: Performed By: #### C BC #### [facility] [address] [place] [address] Dr. aBldemar Rodriguez Monocytes/100 WBC (Bld) 4.5 % Normal 1.7-12.0 [facility] Comment on above: Performed By: #### C BC #### [facility] [address] [place] [address] Dr. Baldemar Rodriguez NEUT # 3.2 103/ul Normal 1.4-6.5 [facility] Comment on above: Performed By: #### C BC #### [facility] [address] [place] [address] Dr. Baldemar Rodriguez Neutrophils/100 WBC (Bld) 74.1 % Normal 43.0-75.0 [facility] Comment on above: Performed By: #### C BC #### [facility] [address] [place] [address] Dr. Baldemar Rodriguez Platelet mean volume (Bld) [Entitic vol] 9.7 fL Normal 9.5-13.5 [facility] Comment on above: Performed By: #### C BC #### [facility] [address] [place], [place] [address] Dr. Baldemar Rodriguez PLT 181 103/ul Normal 150-450 [facility] Comment on above: Performed By: #### C BC #### [facility] [id number] Baldemar Rodriguez RBC 3.61 106/ul Critically low 4.20-5.40 [facility] Comment on above: Performed By: #### C BC #### [facility] [address] [place], [place] [address] Dr. Baldemar Rodriguez WBC 4.3 103/ul Normal 4.0-11.0 [facility] Comment on above: Performed By: #### C BC #### [facility] [id number] Baldemar Rodriguez CTA CHEST WO W [...] by: MED TUTTLE Date: 2022-03-23 15:31 Normal [facility] GLYCOHEMOGLOBIN A1Con 2022 ADA RECOMMENDATION SEE BELOW Normal [facility] Comment on above: Result Comment: ADA RECOMMENDED LIMIT 4.0 - 6.0 ADA THERAPEUTIC TARGET < 7.0 ACTION SUGGESTED > 7.0 Performed By: #### B MP #### [facility] [address] [address] [address] Baldemar Rodriguez Glucose [Mass/Vol] 114 mg/dL Normal [facility] Comment on above: Performed By: #### B MP #### [facility] [address] [address] [address] Baldemar Rodriguez HbA1c (Bld) [Mass fraction] 5.6 % Normal 4.5-6.2 [facility] Comment on above: Performed By: #### B MP #### [facility] [address] [address] [address] Baldemar Rodriguez MAGNESIUMon 03-23-2022 Magnesium [Mass/Vol] 1.7 mg/dL Critically low 1.8-2.4 [facility] Comment on above: Performed By: #### B MP #### [facility] [address] [address] [address] Baldemar Rodriguez PROF CHEM 8 (BAS METB)on Anion gap [Moles/Vol] 11.7 mmol/L Normal [facility] Comment on above: Performed By: #### C MP, CMADM, BNP #### [facility] [address] [address] [address] Baldemar Rodriguez Calcium [Mass/Vol] 9.0 mg/dL Normal 8.5-10.1 [facility] Comment on above: Performed By: #### C MP, CMADM, BNP #### [facility] [address] [address] [address] Baldemar Rodriguez Chloride [Moles/Vol] 103 mmol/L Normal 98-107 [facility] Comment on above: Performed By: #### C MP, CMADM, BNP #### [facility] [address] [address] [address] Baldemar Rodriguez CO2 [Moles/Vol] 28.6 mmol/L Normal 21.0-32.0 [facility] Comment on above: Performed By: #### C MP, CMADM, BNP #### [facility] [address] [address] [address] Baldemar Rodriguez Creatinine [Mass/Vol] 0.83 mg/dL Normal 0.55-1.02 [facility] Comment on above: Performed By: #### C MP, CMADM, BNP #### [facility] [address] [place] [address] Dr. Baldemar Rodriguez EGFR-AF AFGHAN >60 Normal >=60 [facility] Comment on above: Performed By: #### C MP, CMADM, BNP #### [facility] [address] [place] [address] Dr. Baldemar Rodriguez EGFR-NON AF AFGHAN >60 Normal >=60 [facility] Comment on above: Performed By: #### C MP, CMADM, BNP #### [facility] [address] [place] [address] Dr. Baldemar Rodriguez Glucose [Mass/Vol] 115 mg/dL Critically high 74-106 [facility] Comment on above: Performed By: #### C MP, CMADM, BNP #### [facility] [address] [address] [address] Baldemar Rodriguez Potassium [Moles/Vol] 3.3 mmol/L Critically low 3.5-5.1 [facility] Comment on above: Performed By: #### C MP, CMADM, BNP #### [facility] [address] [place] [address] Dr. Baldemar Rodriguez Sodium [Moles/Vol] 140 mmol/L Normal 136-145 [facility] Comment on above: Performed By: #### C MP, CMADM, BNP #### [facility] [address] [place] [address] Dr. Baldemar Rodriguez Urea nitrogen [Mass/Vol] 14.0 mg/dL Normal 7.0-18.0 [facility] Comment on above: Performed By: #### C MP, CMADM, BNP #### [facility] [address] [address] [address] Baldemar Rodriguez Urea nitrogen/Creatinine [Mass ratio] 16.9 mg/mg Normal [facility] Comment on above: Performed By: #### C MP, CMADM, BNP #### [facility] [address] [address] [address] Baldemar Rodriguez TSHon 03-23-2022 TSH 0.588 uIU/mL Normal 0.358-3.740 [facility] Comment on above: Performed By: #### M G, TSH #### [facility] [address] [address] [address] Baldemar Rodriguez BNPon 03-22-2022 Natriuretic peptide B (Bld) [Mass/Vol] 2517.0 pg/mL Critically high <=900.0 [facility] Comment on above: Performed By: #### C MP, CMADM, BNP #### [facility] [address] [address] [address] Baldemar Rodriguez CARDIAC FREYA ADMITon 023 CK [Catalytic activity/Vol] 33 U/L Normal 26-192 [facility] Comment on above: Performed By: #### C MP, CMADM, BNP #### [facility] [address] [place] [address] Dr. Baldemar Rodriguez CK.MB [Mass/Vol] ng/mL Normal <=3.60 [facility] Comment on above: Performed By: #### C MP, CMADM, BNP #### [facility] [address] [place] [address] Dr. Baldemar Rodriguez HSTROP 11.9 pg/mL Normal 4.0-51.3 [facility] Comment on above: Result Comment: CUT- OFF POINTS HAVE BEEN ESTABLISHED BASED ON THE FOURTH UNIVERSAL DEFINITIONS OF MYOCARDIAL INFARCTION. THE UPPER REFERENCE LIMIT (URL) OF TROPONIN, DEFINED THE 99TH PERCENTILE OF cTnI DISTRIBUTION IN A REFERENCE POPULATION, HAS BEEN CONFIRMED THE DECISION THRESHOLD FOR DC DIAGNOSIS. Performed By: #### C MP, CMADM, BNP #### [facility] [address] [place] [address] Dr. Baldemar Rodriguez EMILY 29 ng/mL Normal 9-82 [facility] Comment on above: Performed By: #### C MP, CMADM, BNP #### [facility] [address] [place] [address] Dr. Baldemar Rodriguez CBC AUTO DIFFon 03-22-2022 BASO # 0.1 103/ul Normal 0.0-0.1 [facility] Comment on above: Performed By: #### C MP, CMADM, BNP #### [facility] [address] [place] [address] Dr. Baldemar Rodriguez Basophils/100 WBC (Bld) 0.8 % Normal 0.2-2.0 [facility] Comment on above: Performed By: #### C MP, CMADM, BNP #### [facility] [address] [place] [address] Dr. Baldemar Rodriguez EO # 0.1 103/ul Normal 0.0-0.7 [facility] Comment on above: Performed By: #### C MP, CMADM, BNP #### [facility] [address] [place] [address] Dr. Baldemar Rodriguez Eosinophils/100 WBC (Bld) 2.2 % Normal 0.9-7.0 [facility] Comment on above: Performed By: #### C MP, CMADM, BNP #### [facility] [address] [place] [address] Dr. Baldemar Rodriguez Erythrocyte distribution width (RBC) [Ratio] 15.1 % Critically high 11.0-15.0 [facility] Comment on above: Performed By: #### C MP, CMADM, BNP #### [facility] [address] [place] [address] Dr. Baldemar Rodriguez Hematocrit (Bld) [Volume fraction] 39.2 % Normal 36.0-48.0 [facility] Comment on above: Performed By: #### C MP, CMADM, BNP #### [facility] [address] [place] [address] Dr. Baldemar Rodriguez Hemoglobin (Bld) [Mass/Vol] 12.6 g/dL Normal 12.0-16.0 [facility] Comment on above: Performed By: #### C MP, CMADM, BNP #### [facility] [address] [place] [address] Dr. Baldemar Rodriguez IG # 0.02 10e3/ul Normal 0.00-0.03 [facility] Comment on above: Performed By: #### C MP, CMADM, BNP #### [facility] [address] [place] [address] Dr. Baldemar Rodriguez IG % 0.3 % Normal 0.0-0.5 [facility] Comment on above: Performed By: #### C MP, CMADM, BNP #### [facility] [address] [place] [address] Dr. Baldemar Rodriguez LYMPH # 1.6 103/ul Normal 1.2-3.8 [facility] Comment on above: Performed By: #### C MP, CMADM, BNP #### [facility] [address] [place] [address] Dr. Baldemar Rodriguez Lymphocytes/100 WBC (Bld) 27.3 % Normal 20.5-60.0 [facility] Comment on above: Performed By: #### C MP, CMADM, BNP #### [facility] [address] [place] [address] Dr. Baldemar Rodriguez MANUAL DIFF REQ NO Normal [facility] Comment on above: Performed By: #### C MP, CMADM, BNP #### [facility] [address] [place] [address] Dr. Baldemar Rodriguez MCH (RBC) [Entitic mass] 30.4 pg Normal 26.7-34.0 [facility] Comment on above: Performed By: #### C MP, CMADM, BNP #### [facility] [address] [place] [address] Dr. Baldemar Rodriguez MCHC (RBC) [Mass/Vol] 32.1 g/dL Normal 29.9-35.2 [facility] Comment on above: Performed By: #### C MP, CMADM, BNP #### [facility] [address] [place] [address] Dr. Baldemar Rodriguez MCV (RBC) [Entitic vol] 94.5 fL Normal 81.0-99.0 [facility] Comment on above: Performed By: #### C MP, CMADM, BNP #### [facility] [address] [place] [address] Dr. Baldemar Rodriguez MONO # 0.5 103/ul Normal 0.3-0.8 [facility] Comment on above: Performed By: #### C MP, CMADM, BNP #### [facility] [address] [place] [address] Dr. Baldemar Rodriguez Monocytes/100 WBC (Bld) 8.0 % Normal 1.7-12.0 [facility] Comment on above: Performed By: #### C MP, CMADM, BNP #### [facility] [address] [place] [address] Dr. Baldemar Rodriguez NEUT # 3.7 103/ul Normal 1.4-6.5 [facility] Comment on above: Performed By: #### C MP, CMADM, BNP #### [facility] [address] [place] [address] Dr. Baldemar Rodriguez Neutrophils/100 WBC (Bld) 61.4 % Normal 43.0-75.0 [facility] Comment on above: Performed By: #### C MP, CMADM, BNP #### [facility] [address] [place] [address] Dr. Baldemar Rodriguez Platelet mean volume (Bld) [Entitic vol] 9.4 fL Critically low 9.5-13.5 [facility] Comment on above: Performed By: #### C MP, CMADM, BNP #### [facility] [address] [place] [address] Dr. Baldemar Rodriguez PLT 226 103/ul Normal 150-450 [facility] Comment on above: Performed By: #### C MP, CMADM, BNP #### [facility] [address] [place] [address] Dr. Baldemar Rodriguez RBC 4.15 106/ul Critically low 4.20-5.40 [facility] Comment on above: Performed By: #### C LUIS A, CMADM, BNP #### [facility] [address] [address] [address] Baldemar Rodriguez WBC 6.0 103/ul Normal 4.0-11.0 [facility] Comment on above: Performed By: #### C LUIS A, CMADM, BNP #### [facility] [address] [address] [address] Baldemar Rodriguez [facility] SARS-CoV-2 (COVID-19) RNA BOLIVAR+probe Ql (Unsp spec) Not detected Normal NOT DETECTED [facility] Comment on above: Result Comment: [...] for this test is supported by the [place] of [employer] and Human Service's declaration that [...] longer be used). Performed By: #### C LUIS A, CMADM, BNP #### [facility] [address] [address] [address] Baldemar Rodriguez D-DIMERon 03-22-2022 D-DIMER 0.75 mg/L FEU Critically high <=0.59 [facility] Comment on above: Performed By: #### C LUIS A, CMADM, BNP #### [facility] [address] [address] [address] Baldemar Rodriguez D-DIMER COMMENTS SEE BELOW Normal [facility] Comment on above: Result Comment: Incr [...] By: #### C MP, CMADM, BNP #### [facility] [address] [address] [address] Baldemar Rodriguez ECHOCARDIO M/2D COMPLETEon 0 03-22-2022 ECHOCARDIO M/2D COMPLETE Patient: PENNY DIANE Exam Date: 03/22/2022 : 1950 Gender:F Ordering : SHAIKH Chu LOJA . Admission #: [id number] Family : DR TY THOMAS D.ORodriguez Order #: [id number] CLICK HERE TO VIEW EXAM ECHOCARDIOGRAM REPORT [...] Lofton M.D. on 03/22/2022 at 16:57 Normal [facility] PROF 14(COMP METB)on 023 Albumin [Mass/Vol] 3.4 g/dL Normal 3.4-5.0 [facility] Comment on above: Performed By: #### C MP, CMADM, BNP #### [facility] [address] [address] [address] Baldemar Rodriguez Albumin/Globulin [Mass ratio] 0.8 {ratio} Normal [facility] Comment on above: Performed By: #### C MP, CMADM, BNP #### [facility] [address] [address] [address] Baldemar Rodriguez ALP [Catalytic activity/Vol] 124 U/L Critically high 46-116 [facility] Comment on above: Performed By: #### C MP, CMADM, BNP #### [facility] [address] [address] [address] Baldemar Rodriguez ALT [Catalytic activity/Vol] 30 U/L Normal 14-59 [facility] Comment on above: Performed By: #### C MP, CMADM, BNP #### [facility] [address] [address] [address] Baldemar Rodriguez Anion gap [Moles/Vol] 12.0 mmol/L Normal [facility] Comment on above: Performed By: #### C MP, CMADM, BNP #### [facility] [address] [address] [address] Baldemar Rodriguez AST [Catalytic activity/Vol] 30 U/L Normal 15-37 [facility] Comment on above: Performed By: #### C MP, CMADM, BNP #### [facility] [address] [address] [address] Baldemar Rodriguez Bilirubin [Mass/Vol] 0.9 mg/dL Normal 0.2-1.0 [facility] Comment on above: Performed By: #### C MP, CMADM, BNP #### [facility] [address] [address] [address] Baldemar Rodriguez Calcium [Mass/Vol] 9.4 mg/dL Normal 8.5-10.1 [facility] Comment on above: Performed By: #### C MP, CMADM, BNP #### [facility] [address] [address] [address] Baldemar Rodriguez Chloride [Moles/Vol] 105 mmol/L Normal 98-107 [facility] Comment on above: Performed By: #### C MP, CMADM, BNP #### [facility] [address] [address] [address] Baldemar Rodriguez CO2 [Moles/Vol] 30.8 mmol/L Normal 21.0-32.0 [facility] Comment on above: Performed By: #### C MP, CMADM, BNP #### [facility] [address] [place] [address] Dr. Baldemar Rodriguez Creatinine [Mass/Vol] 0.79 mg/dL Normal 0.55-1.02 [facility] Comment on above: Performed By: #### C MP, CMADM, BNP #### [facility] [address] [place] [address] Dr. Baldemar Rodriguez EGFR-AF AFGHAN >60 Normal >=60 [facility] Comment on above: Performed By: #### C MP, CMADM, BNP #### [facility] [address] [place] [address] Dr. Baldemar Rodriguez EGFR-NON AF AFGHAN >60 Normal >=60 [facility] Comment on above: Performed By: #### C MP, CMADM, BNP #### [facility] [address] [address] [address] Baldemar Rodriguez Globulin (S) [Mass/Vol] 4.3 g/dL Normal [facility] Comment on above: Performed By: #### C MP, CMADM, BNP #### [facility] [address] [address] [address] Baldemar Rodriguez Glucose [Mass/Vol] 115 mg/dL Critically high 74-106 [facility] Comment on above: Performed By: #### C MP CMADM, BNP #### [facility] [address] [address] [address] Baldemar Rodriguez Potassium [Moles/Vol] 3.8 mmol/L Normal 3.5-5.1 [facility] Comment on above: Performed By: #### C MP CMADM, BNP #### [facility] [address] [address] [address] Baldemar Rodriguez Protein [Mass/Vol] 7.7 g/dL Normal 6.4-8.2 [facility] Comment on above: Performed By: #### C LUIS A CMADM, BNP #### [facility] [address] [place] [address] Dr. Baldemar Rodriguez Sodium [Moles/Vol] 144 mmol/L Normal 136-145 [facility] Comment on above: Performed By: #### C MP CMADM, BNP #### [facility] [address] [place] [address] Dr. Baldemar Rodriguez Urea nitrogen [Mass/Vol] 11.0 mg/dL Normal 7.0-18.0 [facility] Comment on above: Performed By: #### C LUIS A CMADM, BNP #### [facility] [address] [place] [address] Dr. Baldemar Rodriguez Urea nitrogen/Creatinine [Mass ratio] 13.9 mg/mg Normal [facility] Comment on above: Performed By: #### C LUIS A CMADM, BNP #### [facility] [address] [place] [address] Dr. Baldemar Rodriguez XR CHEST 1 Von [...] by: ANNITA BRAN Date: 2022-03-22 12:45 Normal [facility] XR CHEST 2 Von 01-22-2022 XR [...] HALIE NICK Date: 2022-01-22 15:48 Normal [facility] A1C HEMOGLOBINon 11-08-2021 HbA1c (Bld) [Mass fraction] 5.6 % [facility] Other HbA1c (Bld) [Mass fraction]o n 11-08-2021 A1C HEMOGLOBIN [facility] Other ECHOCARDIO M/2D COMPLETEon 0 08-15-2021 ECHOCARDIO M/2D COMPLETE Patient: PENNY DIANE Exam Date: 08/15/2021 : 1950 Gender:F Ordering : REGINO HERNADEZ Admission #: [id number] Family : DR TY THOMAS D.O. Order #: [id number] CLICK HERE TO VIEW EXAM ECHOCARDIOGRAM REPORT [...] Lofton M.D. on 08/15/2021 at 16:14 Normal [facility] BASIC METABOLIC PANELon Calcium [Mass/Vol] 9.9 mg/dL Normal 8.6-10.3 [facility] Comment on above: Performed By: #### 0 0071 #### [facility] [address] [place] [address], [place] Chloride [Moles/Vol] 105 mmol/L Normal 98-107 [facility] Comment on above: Performed By: #### 0 0071 #### [facility] [address] [place] [address], [place] CO2 [Moles/Vol] 30 mmol/L Normal 21-31 [facility] Comment on above: Performed By: #### 0 0071 #### [facility] [address] [place] [address], [place] Creatinine [Mass/Vol] 1.25 mg/dL High 0.60-1.20 [facility] Comment on above: Performed By: #### 0 0071 #### [facility] [address] [place] [address], [place] eGFR- 51 ml/min/1.73sq m Abnormal >60 [facility] Comment on above: Result Comment: Calc ulation may not be valid for patients over 70 years Performed By: #### 0 0071 #### [facility] [address] [place] [address], [place] eGFR- non- 42 ml/min/1.73sq m Abnormal >60 [facility] Comment on above: Result Comment: Calc ulation may not be valid for patients over 70 years Performed By: #### 0 0071 #### [facility] [address] [place] [address], [place] Glucose [Mass/Vol] 96 mg/dL Normal 70-100 [facility] Comment on above: Performed By: #### 0 0071 #### [facility] [address] [place] [address], [place] Potassium [Moles/Vol] 3.9 mmol/L Normal 3.5-5.1 [facility] Comment on above: Performed By: #### 0 0071 #### [facility] [address] [place] [address], [facility] Sodium [Moles/Vol] 143 mmol/L Normal 136-145 [facility] Comment on above: Performed By: #### 0 1 #### [facility] [address] [place] [address], [facility] Urea nitrogen [Mass/Vol] 25 mg/dL Normal 7-25 [facility] Comment on above: Performed By: #### 0 70 #### [facility] [address] [place] [address], [facility] CBC COMPLETE BLOOD COUNTon 07-11-2021 Erythrocyte distribution width (RBC) [Ratio] 13.9 % Normal 11.5-15.0 [facility] Comment on above: Performed By: #### 5 08 #### [facility] [address] [place] [address], [facility] Hematocrit (Bld) [Volume fraction] 41.6 % Normal 36.0-45.0 [facility] Comment on above: Performed By: #### 5 0608 #### [facility] [address] [facility] [place] [address], [facility] Hemoglobin (Bld) [Mass/Vol] 13.5 g/dL Normal 12.0-15.0 [facility] Comment on above: Performed By: #### 5 0608 #### [facility] [address] [place] [address], [facility] MCH (RBC) [Entitic mass] 31.3 pg Normal 27.0-33.0 [facility] Comment on above: Performed By: #### 5 0608 #### [facility] [address] [place] [address], [facility] MCHC (RBC) [Mass/Vol] 32.5 g/dL Normal 32.0-35.0 [facility] Comment on above: Performed By: #### 5 0608 #### [facility] [address] [place] [address], [facility] MCV (RBC) [Entitic vol] 96.5 fL Normal 82.0-98.0 [facility] Comment on above: Performed By: #### 5 0608 #### [facility] [address] [place] [address], [facility] Nucleated RBC/100 WBC (Bld) [Ratio] 0 % Normal 0-0 [facility] Comment on above: Performed By: #### 5 0608 #### [facility] [address] [place] [address], [facility] PLAT CNT 219 10*3/uL Normal 150-400 [facility] Comment on above: Performed By: #### 5 0608 #### [facility] [address] [place] [address], [facility] RBC (Bld) [#/Vol] 4.31 10*6/uL Normal 3.80-5.00 [facility] Comment on above: Performed By: #### 5 0608 #### [facility] [address] [place] [address], [facility] WBC (Bld) [#/Vol] 5.29 10*3/uL Normal 4.00-10.60 [facility] Comment on above: Performed By: #### 5 0608 #### [facility] [address] Cardiovascular Lab Reporton 07-11-2021 Cardiovascular Lab Report [facility] Patient Name: Penny Diane [facility] MR #: [id number] Physician: Regino Hernadez MD Department of Service Date: 07/11/2021 Medicine Birthdate: 1950 Division of Room #: CC Cardiology Adult Cardiovascular Services [place] [address] Cardiovascular Laboratory Report ATRIAL FIBRILLATION ABLATION PROCEDURE [...] I decided to interrogate the pulmonary veins. 64076F Heparin bolus was given followed by additional [...] content not included)... Normal [facility] Covid-19 PCR ([facility])on 06-12 SARS-CoV-2 (COVID-19) RNA BOLIVAR+probe Ql (Unsp spec) Not detected Normal NOT DETECTED [facility] Comment on above: Result Comment: This test is not yet approved or cleared by the [place] FDA. When there are no FDA-approved or cleared tests available, and other criteria are met, FDA can make tests available under an emergency access mechanism called an Emergency Use Authorization (EUA). The EUA for this test is supported by the [place] of Health and Human Service's (HHS's) declaration [...] SARS-CoV-2. Performed By: #### C VDTBH #### [facility] [address] [place] [address] Dr. Baldemar Rodriguez HEMOGRAM AND PLATELon 2021 Hematocrit (Bld) [Volume fraction] 40.9 % Normal 36.0-48.0 [facility] Comment on above: Performed By: #### C MP, CMADM, BNP #### [facility] [address] [place] [address] Dr. Baldemar Rodriguez Hemoglobin (Bld) [Mass/Vol] 12.9 g/dL Normal 12.0-16.0 [facility] Comment on above: Performed By: #### C MP, CMADM, BNP #### [facility] [address] [place] [address] Dr. Baldemar Rodriguez MCH (RBC) [Entitic mass] 30.9 pg Normal 26.7-34.0 [facility] Comment on above: Performed By: #### C MP, CMADM, BNP #### [facility] [address] [place] [address] Dr. Baldemar Rodriguez MCHC (RBC) [Mass/Vol] 31.5 g/dL Normal 29.9-35.2 [facility] Comment on above: Performed By: #### C MP, CMADM, BNP #### [facility] [address] [place] [address] Dr. Baldemar Rodriguez MCV (RBC) [Entitic vol] 98.1 fL Normal 81.0-99.0 [facility] Comment on above: Performed By: #### C MP, CMADM, BNP #### [facility] [address] [address] [address] Baldemar Rodriguez PLT 258 103/ul Normal 150-450 [facility] Comment on above: Performed By: #### C MP, CMADM, BNP #### [facility] [address] [address] [address] Baldemar Rodriguez RBC 4.17 106/ul Critically low 4.20-5.40 [facility] Comment on above: Performed By: #### C MP, CMADM, BNP #### [facility] [address] [address] [address] Baldemar Rodriguez WBC 5.0 103/ul Normal 4.0-11.0 [facility] Comment on above: Performed By: #### C MP, CMADM, BNP #### [facility] [address] [address] [address] Baldemar Rodriguez BASIC METABOLIC PANELon 04-0 Calcium [Mass/Vol] 8.0 mg/dL Low 8.6-10.3 [facility] Comment on above: Order Comment: No: D o not add to previous draw Performed By: #### 0 0071 #### [facility] [address] [place] [address], [place] Chloride [Moles/Vol] 105 mmol/L Normal 98-107 [facility] Comment on above: Order Comment: No: D o not add to previous draw Performed By: #### 0 0071 #### [facility] [address] [place] [address], [place] CO2 [Moles/Vol] 26 mmol/L Normal 21-31 [facility] Comment on above: Order Comment: No: D o not add to previous draw Performed By: #### 0 0071 #### [facility] [address] [place] [address], [place] Creatinine [Mass/Vol] 0.77 mg/dL Normal 0.60-1.20 [facility] Comment on above: Order Comment: No: D o not add to previous draw Performed By: #### 0 [id number] #### [facility] [address] [place] [address], [facility] GFR/1.73 sq M.predicted among blacks MDRD (S/P/Bld) [Vol rate/Area] mL/min/{1.73_m2} Normal >60 [facility] Comment on above: Order Comment: No: D o not add to previous draw Result Comment: Calc ulation may not be valid for patients over 70 years Performed By: #### 0 [id number] #### [facility] [address] [place] [address], [facility] GFR/1.73 sq M.predicted among non-blacks MDRD (S/P/Bld) [Vol rate/Area] mL/min/{1.73_m2} Normal >60 [facility] Comment on above: Order Comment: No: D o not add to previous draw Result Comment: Calc ulation may not be valid for patients over 70 years Performed By: #### 0 [id number] #### [facility] [address] [place] [address], [place] Glucose [Mass/Vol] 89 mg/dL Normal 70-100 [facility] Comment on above: Order Comment: No: D o not add to previous draw Performed By: #### 0 0071 #### [facility] [address] [place] [address], [place] Potassium [Moles/Vol] 2.8 mmol/L Low 3.5-5.1 [facility] Comment on above: Order Comment: No: D o not add to previous draw Performed By: #### 0 0071 #### [facility] [address] [place] [address], [place] Sodium [Moles/Vol] 140 mmol/L Normal 136-145 [facility] [place] [facility] Comment on above: Order Comment: No: D o not add to previous draw Performed By: #### 0 [id number] #### [facility] [address] [place] [address], [facility] Urea nitrogen [Mass/Vol] 11 mg/dL Normal 7-25 [facility] Comment on above: Order Comment: No: D o not add to previous draw Performed By: #### 0 [id number] #### [facility] [address] [facility] [place] [address], [facility] CBC W/DIFFon 05-18-2021 ABS IMM GRANS 0.0 10*3/uL Normal 0.0-0.2 [facility] Comment on above: Order Comment: No: D o not add to previous draw Performed By: #### 5 [id number] #### [facility] [address] [place] [address], [facility] ABS NEUTROPHILS 2.6 10*3/uL Normal 1.6-7.6 The [facility] Comment on above: Order Comment: No: D o not add to previous draw Performed By: #### 5 [id number] #### [facility] [address] [facility] [place] [address], [facility] Basophils (Bld) [#/Vol] 0.0 10*3/uL Normal 0.0-0.2 [facility] Comment on above: Order Comment: No: D o not add to previous draw Performed By: #### 5 [id number] #### [facility] [address] [place] [address], [facility] Basophils/100 WBC (Bld) 0.6 % Normal 0.0-1.0 [facility] Comment on above: Order Comment: No: D o not add to previous draw Performed By: #### 5 0103 #### [facility] [address] [place] [address], [facility] Eosinophils (Bld) [#/Vol] 0.1 10*3/uL Normal 0.0-0.5 [facility] Comment on above: Order Comment: No: D o not add to previous draw Performed By: #### 5 0103 #### [facility] [address] [place] [address], [facility] Eosinophils/100 WBC (Bld) 2.9 % Normal 0.0-6.0 [facility] Comment on above: Order Comment: No: D o not add to previous draw Performed By: #### 5 0103 #### [facility] [address] [place] [address], [facility] Erythrocyte distribution width (RBC) [Ratio] 12.9 % Normal 11.5-15.0 [facility] Comment on above: Order Comment: No: D o not add to previous draw Performed By: #### 5 0103 #### [facility] [address] [place] [address], [facility] Hematocrit (Bld) [Volume fraction] 33.0 % Low 36.0-45.0 [facility] Comment on above: Order Comment: No: D o not add to previous draw Performed By: #### 5 0103 #### [facility] [address] [place] [address], [facility] Hemoglobin (Bld) [Mass/Vol] 10.7 g/dL Low 12.0-15.0 [facility] Comment on above: Order Comment: No: D o not add to previous draw Performed By: #### 5 0103 #### [facility] [address] [place] [address], [facility] IMMATURE GRANS 0.2 % Normal 0.0-1.0 [facility] Comment on above: Order Comment: No: D o not add to previous draw Performed By: #### 5 0103 #### [facility] [address] [place] [address], [facility] Lymphocytes (Bld) [#/Vol] 1.5 10*3/uL Normal 1.2-4.0 [facility] Comment on above: Order Comment: No: D o not add to previous draw Performed By: #### 5 0103 #### [facility] [address] [place] [address], [facility] Lymphocytes/100 WBC (Bld) 31.0 % Normal 20.0-45.0 [facility] Comment on above: Order Comment: No: D o not add to previous draw Performed By: #### 5 0103 #### [facility] [address] [place] [address], [facility] MCH (RBC) [Entitic mass] 32.0 pg Normal 27.0-33.0 [facility] Comment on above: Order Comment: No: D o not add to previous draw Performed By: #### 5 0103 #### [facility] [address] [place] [id number], [facility] MCHC (RBC) [Mass/Vol] 32.4 g/dL Normal 32.0-35.0 [facility] Comment on above: Order Comment: No: D o not add to previous draw Performed By: #### 5 0103 #### [facility] [address] [place] [address], [facility] MCV (RBC) [Entitic vol] 98.8 fL High 82.0-98.0 [facility] Comment on above: Order Comment: No: D o not add to previous draw Performed By: #### 5 0103 #### [facility] [address] [place] [address], [facility] Monocytes (Bld) [#/Vol] 0.6 10*3/uL Normal 0.1-1.0 [facility] Comment on above: Order Comment: No: D o not add to previous draw Performed By: #### 5 0103 #### [facility] [address] [place] [id number], [facility] MONOS 11.9 % Normal 5.0-12.0 [facility] Comment on above: Order Comment: No: D o not add to previous draw Performed By: #### 5 0103 #### [facility] [address] [place] [address], [facility] Neutrophils/100 WBC (Bld) 53.4 % Normal 40.0-72.0 [facility] Comment on above: Order Comment: No: D o not add to previous draw Performed By: #### 5 0103 #### [facility] [address] [place] [address], [facility] Nucleated RBC/100 WBC (Bld) [Ratio] 0 % Normal 0-0 [facility] Comment on above: Order Comment: No: D o not add to previous draw Performed By: #### 5 0103 #### [facility] [address] [place] [address], [facility] PLAT CNT 179 10*3/uL Normal 150-400 [facility] Comment on above: Order Comment: No: D o not add to previous draw Performed By: #### 5 0103 #### [facility] [address] [place] [address], [facility] RBC (Bld) [#/Vol] 3.34 10*6/uL Low 3.80-5.00 [facility] Comment on above: Order Comment: No: D o not add to previous draw Performed By: #### 5 0103 #### [facility] [address] [place] [address], [facility] WBC (Bld) [#/Vol] 4.87 10*3/uL Normal 4.00-10.60 [facility] Comment on above: Order Comment: No: D o not add to previous draw Performed By: #### 5 0103 #### [facility] [address] [place] [address], [facility] POTASSIUM BLOODon 05-18-2021 Potassium [Moles/Vol] 3.7 mmol/L Normal 3.5-5.1 [facility] Comment on above: Order Comment: No: D o not add to previous draw Performed By: #### 4 1406 #### [facility] [address] [facility] [place] [address], [facility] Cardiovascular Lab Reporton 05-17-2021 Cardiovascular Lab Report [facility] Patient Name: [facility] Doug MR #: [id number] Department of Physician: Regino Hernadez MD Medicine Service Date: 05/17/2021 Division of Birthdate: 1950 Cardiology Room #: CC Adult Cardiovascular Services [facility] [address] [facility]. [place], [place] [address] Cardiovascular Laboratory Report ATRIAL FIBRILLATION ABLATION PROCEDURE [...] EZ clot. Esophagus was mapped using the [id number] 3D mapping software and noted to be [...] content not included)... Normal [facility] POC GLUCOSE LABon 05-17-2021 Glucose [Mass/Vol] 92 mg/dL Normal 70-100 [facility] Comment on above: Performed By: #### 8 [id number] #### [facility] [address] [facility] BASIC METABOLIC PANELon 04-12 Calcium [Mass/Vol] 8.7 mg/dL Normal 8.6-10.3 [facility] Comment on above: Performed By: #### 0 0071 #### [facility] [address] [facility] [place] [address], [facility] Chloride [Moles/Vol] 103 mmol/L Normal 98-107 [facility] Comment on above: Performed By: #### 0 0071 #### [facility] [address] [facility] [place] [address], [facility] CO2 [Moles/Vol] 26 mmol/L Normal 21-31 [facility] Comment on above: Performed By: #### 0 0071 #### [facility] [address] [facility] [place] [address], [facility] Creatinine [Mass/Vol] 0.86 mg/dL Normal 0.60-1.20 [facility] Comment on above: Performed By: #### 0 0071 #### [facility] [address] [facility] [place] [address], [facility] GFR/1.73 sq M.predicted among blacks MDRD (S/P/Bld) [Vol rate/Area] mL/min/{1.73_m2} Normal >60 [facility] Comment on above: Result Comment: Calc ulation may not be valid for patients over 70 years Performed By: #### 0 0071 #### [facility] [address] [place] [address], [facility] GFR/1.73 sq M.predicted among non-blacks MDRD (S/P/Bld) [Vol rate/Area] mL/min/{1.73_m2} Normal >60 [facility] Comment on above: Result Comment: Calc ulation may not be valid for patients over 70 years Performed By: #### 0 0071 #### [facility] [address] [place] [address], [facility] Glucose [Mass/Vol] 84 mg/dL Normal 70-100 [facility] Comment on above: Performed By: #### 0 0071 #### [facility] [address] [place] [address], [place] Potassium [Moles/Vol] 4.0 mmol/L Normal 3.5-5.1 [facility] Comment on above: Performed By: #### 0 0071 #### [facility] [address] [place] [address], [facility] Sodium [Moles/Vol] 137 mmol/L Normal 136-145 [facility] [place] [facility] Comment on above: Performed By: #### 0 0071 #### [facility] [address] [place] [address], [facility] Urea nitrogen [Mass/Vol] 19 mg/dL Normal 7-25 [facility] Comment on above: Performed By: #### 0 0071 #### [facility] [address] [place] [address], [place] CTA CHESTon 05-10-2021 CTA CHEST [facility] Department of Radiology [address] [place] [id number] Patient Name: PENNY DIANE : 1950 Sex: F Age: Race: White Pt. Location: Patient Status: D Ordered Date: 04/02/2021 2:15:00 PM Completed Date: 05/10/2021 11:34 AM Requesting Provider: REGINO HERNADEZ Attending Provider: REGINO HERNADEZ Report Copy To: TY THOMAS Signs & Symptoms: I48.0 Paroxysmal atrial fibrillation I10 History: [place] labs done 04-17-21 outside faculty they are [...] dictation.} Electronically signed: Charlie Prince. Transcribed by: [email or web address], User Resident: Electronically Signed by: CHARLIE PRINCE @ 05/14/2021 11:31 AM Normal [facility] Comment on above: Order Comment: , abl ation 05/17/21 , ablation 05/17/21 , , , Ordering Provider - REGINO HERNADEZ MD , HEMATOCRITon 05-10-2021 Hematocrit (Bld) [Volume fraction] 36.0 % Normal 36.0-45.0 [facility] Comment on above: Performed By: #### 8 [id number] #### [place] [address] [place] [address], [facility] HEMOGLOBINon 05-10-2021 Hemoglobin (Bld) [Mass/Vol] 12.2 g/dL Normal 12.0-15.0 [facility] Comment on above: Performed By: #### 8 [id number] #### [facility] [address] [place] [address], [facility] WBC, WHITE BLOOD CELL COUNTo n 05-10-2021 WBC (Bld) [#/Vol] 4.81 10*3/uL Normal 4.00-10.60 [facility] Comment on above: Performed By: #### 8 [id number] #### [facility] [address] [place] [address], [facility] XR WRIST RIGHT (MIN 3 VIEWS) on [...] Gorge Key MD 06/05/18 Final result Normal [facility] Vital Signs Date Time Vital Sign Value Performing Clinician Facility 09-14-2024 11:09040 Body height 165.1 cm Sonia Baig APRN Work Phone: [facility] 09-14-2024 11:09040 Body mass index (BMI) [Ratio] 28.3 kg/m2 Sonia Baig APRN Work Phone: [facility] 09-14-2024 11:09040 Body weight 77.4 kg Sonia Baig APRN Work Phone: [facility] 09-14-2024 11:09040 Diastolic blood pressure 80 mm[Hg] Sonia Baig APRN Work Phone: [facility] 09-14-2024 11:09040 Heart rate 70 /min Sonia Baig APRN Work Phone: [facility] 09-14-2024 11:09-0400 Respiratory rate 18 /min Sonia Whytetejas [employer] Work Phone: [facility] 09-14-2024 11:09-0400 SaO2% (BldA) [Mass fraction] 97 % Sonia Whytenicolleclarenaveen [employer] Work Phone: [facility] 09-14-2024 11:09-0400 Systolic blood pressure 131 mm[Hg] Sonia Safia [employer] Work Phone: [facility] 09-10-2024 09:06-0400 Body height 165.1 cm Sonia Whytenicolleclarenaveen [employer] Work Phone: [facility] 09-10-2024 09:06-0400 Body mass index (BMI) [Ratio] 28.8 kg/m2 Sonia Whytetejas [employer] Work Phone: [facility] 09-10-2024 09:06-0400 Body temperature 96.8 [degF] Sonia Whytetejas [employer] Work Phone: [facility] 09-10-2024 09:06-0400 Body weight 78.47 kg Sonia Baig [employer] Work Phone: [facility] 09-10-2024 09:06-0400 Diastolic blood pressure 74 mm[Hg] Sonia Safia [employer] Work Phone: [facility] 09-10-2024 09:06-0400 Heart rate 83 /min Sonia Safia [employer] Work Phone: [facility] 09-10-2024 09:06-0400 SaO2% (BldA) [Mass fraction] 98 % Sonia Whytetejas [employer] Work Phone: [facility] 09-10-2024 09:06-0400 Systolic blood pressure 122 mm[Hg] Sonia Safia [employer] Work Phone: [facility] 09-09-2024 09:33-0400 Body weight 78.01 kg Sonia Whytenicolleclarenaveen [employer] Work Phone: [facility] 08-04-2024 12:50-0400 Diastolic blood pressure 71 mm[Hg] Sonia Whytetejas [employer] Work Phone: [facility] 08-04-2024 12:50-0400 Heart rate 70 /min Sonia Safia [employer] Work Phone: [facility] 08-04-2024 12:50-0400 Respiratory rate 16 /min Sonia Safia [employer] Work Phone: [facility] 08-04-2024 12:50-0400 SaO2% (BldA) [Mass fraction] 98 % Sonia Safia [employer] Work Phone: [facility] 08-04-2024 12:50-0400 Systolic blood pressure 116 mm[Hg] Sonia Whytetejas [employer]ER Work Phone: [facility] 08-04-2024 10:38-0400 Body height 165.1 cm Sonia Whytetejas [employer]ER Work Phone: [facility] 08-04-2024 10:38-0400 Body weight 77.11 kg Sonia Whytetejas [employer] Work Phone: [facility] 06-29-2024 11:20-0400 Body height 165.1 cm Sonia Safia [employer] Work Phone: [facility] 06-29-2024 11:20-0400 Body mass index (BMI) [Ratio] 28.6 kg/m2 Sonia Safia [employer] Work Phone: [facility] 06-29-2024 11:20-0400 Body weight 78.1 kg Sonia Whytetejas [employer] Work Phone: [facility] 06-29-2024 11:20-0400 Diastolic blood pressure 80 mm[Hg] Sonia Baig [employer] Work Phone: [facility] 06-29-2024 11:20-0400 Heart rate 71 /min Sonia Safia [employer] Work Phone: [facility] 06-29-2024 11:20-0400 Respiratory rate 18 /min Sonia Safia [employer] Work Phone: [facility] 06-29-2024 11:20-0400 SaO2% (BldA) [Mass fraction] 98 % Sonia Baig [employer] Work Phone: [facility] 06-29-2024 11:20-0400 Systolic blood pressure 124 mm[Hg] Sonia Baig [employer] Work Phone: [facility] 05-04-2024 10:57-0400 Body height 165.1 cm [facility] 05-04-2024 10:57-0400 Body mass index (BMI) [Ratio] 28.5 kg/m2 [facility] 05-04-2024 10:57-0400 Body weight 77.7 kg [facility] 05-04-2024 10:57-0400 Diastolic blood pressure 79 mm[Hg] [facility] 05-04-2024 10:57-0400 Heart rate 70 /min [facility] 05-04-2024 10:57-0400 Respiratory rate 18 /min [facility] 05-04-2024 10:57-0400 SaO2% (BldA) [Mass fraction] 99 % [facility] 05-04-2024 10:57-0400 Systolic blood pressure 126 mm[Hg] [facility] 04-26-2024 10:55-0400 Body height 165.1 cm Sonia Baig [employer] Work Phone: [facility] 04-26-2024 10:55-0400 Body weight 77.11 kg Sonia Baig [employer] Work Phone: [facility] 04-20-2024 12:40-0400 Body height 165.1 cm Danielle Leonel DO Work Phone: [facility] 04-20-2024 12:40-0400 Body mass index (BMI) [Ratio] 29.62 kg/m2 Danielle Leonel DO Work Phone: [facility] 04-20-2024 12:40-0400 Body weight 80.74 kg Danielle Leonel DO Work Phone: [facility] 04-20-2024 12:40-0400 Diastolic blood pressure 76 mm[Hg] Danielle Leonel DO Work Phone: [facility] 04-20-2024 12:40-0400 Heart rate 70 /min Danielle Leonel DO Work Phone: [facility] 04-20-2024 12:40-0400 SaO2% (BldA) [Mass fraction] 97 % Danielle Leonel DO Work Phone: [facility] 04-20-2024 12:40-0400 Systolic blood pressure 118 mm[Hg] Danielle Leonel DO Work Phone: [facility] 04-13-2024 09:35-0500 Body height 165.1 cm [facility] 04-13-2024 09:35-0500 Body mass index (BMI) [Ratio] 29.2 kg/m2 [facility] 04-13-2024 09:35-0500 Body temperature 98.2 [degF] [facility] 04-13-2024 09:35-0500 Body weight 79.6 kg [facility] 04-13-2024 09:35-0500 Diastolic blood pressure 80 mm[Hg] [facility] 04-13-2024 09:35-0500 Heart rate 84 /min [facility] 04-13-2024 09:35-0500 SaO2% (BldA) [Mass fraction] 96 % [facility] 04-13-2024 09:35-0500 Systolic blood pressure 124 mm[Hg] [facility] 03-24-2024 08:05-0500 Body height 165.1 cm Echo Davila MD Work Phone: [facility] 03-24-2024 08:05-0500 Body mass index (BMI) [Ratio] 29.62 kg/m2 Echo Davila MD Work Phone: [facility] 03-24-2024 08:05-0500 Body weight 80.74 kg Echo Davila MD Work Phone: [facility] 03-24-2024 08:05-0500 Diastolic blood pressure 81 mm[Hg] Echo Davila MD Work Phone: [facility] 03-24-2024 08:05-0500 Heart rate 71 /min Echo Davila MD Work Phone: [facility] 03-24-2024 08:05-0500 Systolic blood pressure 133 mm[Hg] Echo Davila MD Work Phone: [facility] 03-09-2024 11:19-0500 Body height 165.1 cm [facility] 03-09-2024 11:19-0500 Body mass index (BMI) [Ratio] 29.1 kg/m2 [facility] 03-09-2024 11:19-0500 Body weight 79.4 kg [facility] 03-09-2024 11:19-0500 Diastolic blood pressure 78 mm[Hg] [facility] 03-09-2024 11:19-0500 Heart rate 70 /min [facility] 03-09-2024 11:19-0500 Respiratory rate 18 /min [facility] 03-09-2024 11:19-0500 SaO2% (BldA) [Mass fraction] 98 % [facility] 03-09-2024 11:19-0500 Systolic blood pressure 132 mm[Hg] [facility] 03-04-2024 10:38-0500 Body height 165.1 cm [facility] 03-04-2024 10:38-0500 Body mass index (BMI) [Ratio] 29.2 kg/m2 [facility] 03-04-2024 10:38-0500 Body temperature 98.2 [degF] [facility] 03-04-2024 10:38-0500 Body weight 79.6 kg [facility] 03-04-2024 10:38-0500 Diastolic blood pressure 72 mm[Hg] [facility] 03-04-2024 10:38-0500 Heart rate 74 /min [facility] 03-04-2024 10:38-0500 SaO2% (BldA) [Mass fraction] 98 % [facility] 03-04-2024 10:38-0500 Systolic blood pressure 116 mm[Hg] [facility] 12-30-2023 11:14-0500 Body height 165.1 cm [facility] 12-30-2023 11:14-0500 Body mass index (BMI) [Ratio] 29.3 kg/m2 [facility] 12-30-2023 11:14-0500 Body temperature 97.5 [degF] [facility] 12-30-2023 11:14-0500 Body weight 80 kg [facility] 12-30-2023 11:14-0500 Diastolic blood pressure 82 mm[Hg] [facility] 12-30-2023 11:14-0500 Heart rate 82 /min [facility] 12-30-2023 11:14-0500 SaO2% (BldA) [Mass fraction] 97 % [facility] 12-30-2023 11:14-0500 Systolic blood pressure 136 mm[Hg] [facility] 12-23-2023 10:56-0500 Body height 165.1 cm [facility] 12-23-2023 10:56-0500 Body mass index (BMI) [Ratio] 29 kg/m2 [facility] 12-23-2023 10:56-0500 Body weight 79.06 kg [facility] 12-23-2023 10:56-0500 Diastolic blood pressure 89 mm[Hg] [facility] 12-23-2023 10:56-0500 Heart rate 71 /min [facility] 12-23-2023 10:56-0500 Respiratory rate 18 /min [facility] 12-23-2023 10:56-0500 SaO2% (BldA) [Mass fraction] 98 % [facility] 12-23-2023 10:56-0500 Systolic blood pressure 145 mm[Hg] [facility] 10-28-2023 13:26-0400 Body height 165.1 cm [facility] 10-28-2023 13:26-0400 Body mass index (BMI) [Ratio] 29.2 kg/m2 [facility] 10-28-2023 13:26-0400 Body weight 79.6 kg [facility] 10-28-2023 13:26-0400 Diastolic blood pressure 86 mm[Hg] [facility] 10-28-2023 13:26-0400 Heart rate 70 /min [facility] 10-28-2023 13:26-0400 Respiratory rate 18 /min [facility] 10-28-2023 13:26-0400 SaO2% (BldA) [Mass fraction] 99 % [facility] 10-28-2023 13:26-0400 Systolic blood pressure 132 mm[Hg] [facility] 08-28-2023 10:32-0400 Body height 165.1 cm [facility] 08-28-2023 10:32-0400 Body mass index (BMI) [Ratio] 29.6 kg/m2 [facility] 08-28-2023 10:32-0400 Body weight 80.73 kg [facility] 08-28-2023 10:32-0400 Diastolic blood pressure 70 mm[Hg] [facility] 08-28-2023 10:32-0400 Heart rate 70 /min [facility] 08-28-2023 10:32-0400 SaO2% (BldA) [Mass fraction] 98 % [facility] 08-28-2023 10:32-0400 Systolic blood pressure 118 mm[Hg] [facility] 08-26-2023 13:33-0400 Body height 165.1 cm [facility] 08-26-2023 13:33-0400 Body mass index (BMI) [Ratio] 29.9 kg/m2 [facility] 08-26-2023 13:33-0400 Body weight 81.7 kg [facility] 08-26-2023 13:33-0400 Diastolic blood pressure 89 mm[Hg] [facility] 08-26-2023 13:33-0400 Heart rate 70 /min [facility] 08-26-2023 13:33-0400 Respiratory rate 18 /min [facility] 08-26-2023 13:33-0400 SaO2% (BldA) [Mass fraction] 98 % [facility] 08-26-2023 13:33-0400 Systolic blood pressure 140 mm[Hg] [facility] 03-13-2023 14:00-0500 Body height 165.1 cm Joaquín Maria Other [facility] Other 03-13-2023 14:00-0500 Body mass index (BMI) [Ratio] 29.15 kg/m2 Joaquín Maria Other [facility] Other 03-13-2023 14:00-0500 Body weight 79.47 kg Joaquín Maria Other [facility] Other 03-13-2023 14:00-0500 Diastolic blood pressure 77 mm[Hg] Joaquín Maria Other [facility] Other 03-13-2023 14:00-0500 Respiratory rate 18 /min Joaquín Maria Other [facility] Other 03-13-2023 14:00-0500 SaO2% (BldA) [Mass fraction] 99 % Joaquín Maria Other [facility] Other 03-13-2023 14:00-0500 Systolic blood pressure 122 mm[Hg] Joaquín Maria Other [facility] Other 03-04-2023 14:00-0500 Body height 165.1 cm [facility] Other [facility] Other 03-04-2023 14:00-0500 Body mass index (BMI) [Ratio] 29.04 kg/m2 [facility] Other [facility] Other 03-04-2023 14:00-0500 Body weight 79.15 kg [facility] Other [facility] Other 03-04-2023 14:00-0500 Diastolic blood pressure 70 mm[Hg] [facility] Other [facility] Other 03-04-2023 14:00-0500 SaO2% (BldA) [Mass fraction] 95 % [facility] Other [facility] Other 03-04-2023 14:00-0500 Systolic blood pressure 111 mm[Hg] [facility] Other [facility] Other 12-04-2022 13:15-0400 Body height 165.1 cm Viviana Williamson Other [facility] Other 11-21-2022 13:00-0400 Body height 165.1 cm Joaquín Maria Other [facility] Other 11-21-2022 13:00-0400 Body mass index (BMI) [Ratio] 28.19 kg/m2 Joaquín Maria Other [facility] Other 11-21-2022 13:00-0400 Body weight 76.84 kg Joaquín Maria Other [facility] Other 11-21-2022 13:00-0400 Diastolic blood pressure 73 mm[Hg] Joaquín Maria Other [facility] Other 11-21-2022 13:00-0400 Respiratory rate 18 /min Joaquín Maria Other [facility] Other 11-21-2022 13:00-0400 SaO2% (BldA) [Mass fraction] 98 % Joaquín Maria Other [facility] Other 11-21-2022 13:00-0400 Systolic blood pressure 120 mm[Hg] Joaquín Maria Other [facility] Other 09-17-2022 13:45-0400 Body height 165.1 cm [...] Body height 165.1 cm Joaquín Maria Other [facility] Other 08-06-2022 13:00-0400 Body mass index (BMI) [Ratio] 28.27 kg/m2 Joaquín Maria Other [facility] Other 08-06-2022 13:00-0400 Body weight 77.07 kg Joaquín Maria Other [facility] Other 08-06-2022 13:00-0400 Diastolic blood pressure 83 mm[Hg] Joaquín Crewsdiff Other [facility] Other 08-06-2022 13:00-0400 Respiratory rate 18 /min Joaquín Crewsdiff Other [facility] Other 08-06-2022 13:00-0400 SaO2% (BldA) [Mass fraction] 94 % Joaquín Crewsdiff Other [facility] Other 08-06-2022 13:00-0400 Systolic blood pressure 129 mm[Hg] Joaquín Crewsdiff Other [facility] Other 04-18-2022 13:15-0500 Body height 165.1 cm Joaquín Maria Other [facility] Other 04-18-2022 13:15-0500 Body mass index (BMI) [Ratio] 28.6 kg/m2 Joaquín Crewsdiff Other [facility] Other 04-18-2022 13:15-0500 Body weight 77.97 kg Joaquín Maria Other [facility] Other 04-18-2022 13:15-0500 Diastolic blood pressure 74 mm[Hg] Joaquín Maria Other [facility] Other 04-18-2022 13:15-0500 Respiratory rate 18 /min Joaquín Maria Other [facility] Other 04-18-2022 13:15-0500 SaO2% (BldA) [Mass fraction] 99 % Joaquín Crewsdiff Other [facility] Other 04-18-2022 13:15-0500 Systolic blood pressure 106 mm[Hg] Joaquín Crewsdiff Other [facility] Other 01-10-2022 14:45-0500 Body height 165.1 cm Viviana Zeyadcyrus Other [facility] Other 12-04-2021 14:30-0400 Body height 165.1 cm Joaquín Maria Other [facility] Other 12-04-2021 14:30-0400 Body mass index (BMI) [Ratio] 27.34 kg/m2 Joaquín Crewsdiff Other [facility] Other 12-04-2021 14:30-0400 Body weight 74.53 kg Joaquín Crewsdiff Other [facility] Other 12-04-2021 14:30-0400 Diastolic blood pressure 72 mm[Hg] Joaquín Crow Other [facility] Other 12-04-2021 14:30-0400 Respiratory rate 18 /min Joaquín Joyaff Other [facility] Other 12-04-2021 14:30-0400 SaO2% (BldA) [Mass fraction] 99 % Joaquín Crewsdiff Other [facility] Other 12-04-2021 14:30-0400 Systolic blood pressure 112 mm[Hg] Joaquínnick Crewsdiff Other [facility] Other 11-08-2021 14:45-0400 Body height 165.1 cm Joaquín Maria Other [facility] Other 11-08-2021 14:45-0400 Body mass index (BMI) [Ratio] 27.47 kg/m2 Joaquín Maria Other [facility] Other 11-08-2021 14:45-0400 Body weight 74.89 kg Joaquín Maria Other [facility] Other 11-08-2021 14:45-0400 Diastolic blood pressure 112 mm[Hg] Joaquín Crewsdiff Other [facility] Other 11-08-2021 14:45-0400 Respiratory rate 18 /min Joaquín Maria Other [facility] Other 11-08-2021 14:45-0400 SaO2% (BldA) [Mass fraction] 99 % Joaquínnick Crewsdiff Other [facility] Other 11-08-2021 14:45-0400 Systolic blood pressure 160 mm[Hg] Joaquínnick Crewsdiff Other [facility] Other 09-27-2021 15:45-0400 Body height 165.1 cm Joaquín Crewsdiff Other [facility] Other 09-27-2021 15:45-0400 Body mass index (BMI) [Ratio] 28.6 kg/m2 Joaquín Crewsdiff Other [facility] Other 09-27-2021 15:45-0400 Body weight 77.96 kg Joaquín Crewsdiff Other [facility] Other 09-27-2021 15:45-0400 Diastolic blood pressure 71 mm[Hg] Joaquín Crewsdiff Other [facility] Other 09-27-2021 15:45-0400 Respiratory rate 18 /min Joaquín Crewsdiff Other [facility] Other 09-27-2021 15:45-0400 SaO2% (BldA) [Mass fraction] 100 % Joaquín Crewsdiff Other [facility] Other 09-27-2021 15:45-0400 Systolic blood pressure 123 mm[Hg] Joaquínnick Maria Other [facility] Other 08-16-2021 15:00-0400 Body height 165.1 cm Viviana Fitt Other [facility] Other 08-16-2021 15:00-0400 Body mass index (BMI) [Ratio] 30.13 kg/m2 Viviana Fitt Other [facility] Other 08-16-2021 15:00-0400 Body weight 82.15 kg Viviana Fitt Other [facility] Other 06-26-2021 15:00-0400 Body height 165.1 cm Viviana Fitt Other [facility] Other 06-26-2021 15:00-0400 Body mass index (BMI) [Ratio] 30.85 kg/m2 Viviana Fitt Other [facility] Other 06-26-2021 15:00-0400 Body weight 84.1 kg Viviana Fitt Other [facility] Other 05-15-2021 16:45-0400 Body height 165.1 cm Joaquínnick Maria Other [facility] Other 05-15-2021 16:45-0400 Body mass index (BMI) [Ratio] 32.45 kg/m2 Joaquín Maria Other [facility] Other 05-15-2021 16:45-0400 Body weight 88.45 kg Joaquín Maria Other [facility] Other 05-15-2021 16:45-0400 Diastolic blood pressure 65 mm[Hg] Joaquín Maria Other [facility] Other 05-15-2021 16:45-0400 Respiratory rate 16 /min Joaquín Maria Other [facility] Other 05-15-2021 16:45-0400 SaO2% (BldA) [Mass fraction] 98 % Joaquín Maria Other [facility] Other 05-15-2021 16:45-0400 Systolic blood pressure 113 mm[Hg] Joaquín Maria Other [facility] Other 04-19-2021 14:45-0500 Body height 165.1 cm Viviana Fitt Other [facility] Other 04-19-2021 14:45-0500 Body mass index (BMI) [Ratio] 32.5 kg/m2 Viviana Fitt Other [facility] Other 04-19-2021 14:45-0500 Body weight 88.59 kg Viviana Fitt Other [facility] Other 04-09-2021 16:45-0500 Body height 165.1 cm Joaquín Maria Other [facility] Other 04-09-2021 16:45-0500 Body mass index (BMI) [Ratio] 32.53 kg/m2 Joaquín Maria Other [facility] Other 04-09-2021 16:45-0500 Body weight 88.68 kg Joaquín Maria Other [facility] Other 04-09-2021 16:45-0500 Diastolic blood pressure 68 mm[Hg] Joaquín Maria Other [facility] Other 04-09-2021 16:45-0500 Respiratory rate 18 /min Joaquín Maria Other [facility] Other 04-09-2021 16:45-0500 SaO2% (BldA) [Mass fraction] 100 % Joaquín Maira Other [facility] Other 04-09-2021 16:45-0500 Systolic blood pressure 115 mm[Hg] Joaquín Maria Other [facility] Other Encounters Encounter Date Encounter Type Care Provider Facility Start: 09-14-2024 End: 09-14-2024 ambulatory Sonia Baig APRN Work Phone: [facility] Work Phone: Start: 09-14-2024 End: 09-14-2024 Patient encounter procedure Joaquín Maria MD [facility] Work Phone: Start: 09-10-2024 End: 09-10-2024 ambulatory Sonia Baig APRN Work Phone: [facility] Work Phone: Start: 09-10-2024 End: 09-10-2024 Patient encounter procedure Sonia Baig APRN [facility] Work Phone: Start: 09-09-2024 End: 09-09-2024 ambulatory Sonia Baig APRN Work Phone: [facility] Work Phone: Start: 09-09-2024 End: 09-09-2024 Patient encounter procedure Ivette Silva [facility] Work Phone: Start: 08-04-2024 End: 08-04-2024 ambulatory Imad Asaad Facility:[facility] Start: 08-04-2024 Non-patient / Non-visit Imad Asaad [facility] Work Phone: Start: 06-29-2024 End: 06-29-2024 Patient encounter procedure Joaquín Maria MD [facility] Work Phone: Start: 06-23-2024 Non-patient / Non-visit Darius LYMAN -[facility] Work Phone: Start: 06-17-2024 End: 06-17-2024 ambulatory DARIUS VERONICA [facility] [place] [facility] Start: 06-14-2024 ambulatory REGINO HERNADEZ [facility] [place] [facility] Start: 06-14-2024 Non-patient / Non-visit Liliane Baig APRN ENGINEERING INTERN -[facility] Work Phone: Start: 05-12-2024 End: 05-12-2024 Admission to same day surgery center Sonia Baig APRN Work Phone: [facility] Work Phone: Start: 05-12-2024 End: 05-12-2024 Departed Referred Viri Toscano MD -[facility] Work Phone: Start: 05-12-2024 End: 05-12-2024 ambulatory Sonia Baig APRN Work Phone: [facility] Work Phone: Start: 05-04-2024 End: 05-04-2024 ambulatory [facility] Work Phone: Start: 05-04-2024 End: 05-04-2024 Patient encounter procedure [facility] Work Phone: Start: 04-20-2024 End: 04-20-2024 ambulatory DANIELLE WAITE Not Available Start: 04-20-2024 End: 04-20-2024 Office outpatient visit 25 minutes Danielle Waite DO Work Phone: [facility] Comment on above: NURIA (obstructive sle ep apnea) (Primary Dx); Hypoxia; Hypersomnia; Snoring Start: 04-13-2024 End: 04-13-2024 ambulatory [facility] Work Phone: Start: 04-13-2024 End: 04-13-2024 Patient encounter procedure [facility] Work Phone: Start: 03-26-2024 End: 03-26-2024 ambulatory DARIUS VERONICA [facility] [place] [facility] Start: 03-24-2024 End: 03-24-2024 Bambo flowskenneth Davila MD Work Phone: [facility] Start: 03-24-2024 End: 03-24-2024 Bamlarryo flowskenneth Davila MD Work Phone: [facility] Start: 03-24-2024 End: 03-24-2024 Patient encounter procedure Echo Davila MD Work Phone: [facility] Comment on above: Hoarse (Primary Dx) Start: 03-24-2024 End: 03-24-2024 ambulatory ECHO DAVILA Not Available Start: 03-09-2024 End: 03-09-2024 Patient encounter procedure [facility] Work Phone: Start: 03-04-2024 Patient encounter procedure [facility] Start: 03-04-2024 End: 03-04-2024 ambulatory [facility] Work Phone: Start: 03-04-2024 End: 03-04-2024 Patient encounter procedure [facility] Work Phone: Start: 03-04-2024 Non-patient / Non-visit [facility] Work Phone: Start: 12-30-2023 End: 12-30-2023 ambulatory [facility] Work Phone: Start: 12-30-2023 End: 12-30-2023 Patient encounter procedure [facility] Work Phone: Start: 12-23-2023 End: 12-23-2023 ambulatory [facility] Work Phone: Start: 12-23-2023 End: 12-23-2023 Patient encounter procedure [facility] Work Phone: Start: 11-27-2023 End: 11-27-2023 ambulatory [facility] Start: 10-28-2023 End: 10-28-2023 ambulatory [facility] Work Phone: Start: 10-28-2023 End: 10-28-2023 Patient encounter procedure [facility] Work Phone: Start: 09-30-2023 End: 09-30-2023 ambulatory [facility]AC[facility] Start: 08-28-2023 End: 08-28-2023 ambulatory [facility] Work Phone: Start: 08-28-2023 End: 08-28-2023 Patient encounter procedure [facility] Work Phone: Start: 08-26-2023 End: 08-26-2023 ambulatory [facility] Work Phone: Start: 08-26-2023 End: 08-26-2023 Patient encounter procedure [facility] Work Phone: Start: 03-13-2023 End: 03-13-2023 ambulatory Joaquín Maria Other [facility] Other Start: 03-13-2023 Follow-up encounter Joaquín Maria [facility] Start: 03-05-2023 Telephone encounter Elias Domingo DO Work Phone: [facility] Start: 03-04-2023 End: 03-04-2023 Patient encounter procedure DO Ty House Work Phone: [facility] Work Phone: Start: 03-04-2023 End: 03-04-2023 ambulatory DO Ty House Work Phone: [facility] Work Phone: Start: 03-04-2023 Office outpatient ne w 60 minutes [facility] Start: 01-09-2023 Registered Recurring DO Jr s House Work Phone: [facility] Work Phone: Start: 01-09-2023 End: 01-09-2023 Patient encounter procedure DO Ty House Work Phone: [facility] Work Phone: Start: 12-04-2022 (Mission Worker) Mission Worker [facility] Start: 12-04-2022 End: 12-04-2022 ambulatory Viviana Williamson Other [facility] Other Start: 11-21-2022 End: 11-21-2022 ambulatory Joaquín Maria Other [facility] Other Start: 11-21-2022 Follow-up encounter [facility]ín [facility] Start: 11-19-2022 End: 11-19-2022 ambulatory Joaquín Maria Other [facility] Other Start: 11-19-2022 Telephone encounter [facility]ín [facility] Start: 09-17-2022 End: 09-17-2022 ambulatory Joaquín Maria Other Not Available Start: 09-17-2022 Follow-up encounter [facility] Start: 08-06-2022 End: 08-06-2022 ambulatory Joaquín Maria Other [facility] Other Start: 08-06-2022 Follow-up encounter [facility] Start: 06-19-2022 End: 06-20-2022 ambulatory JIMI THOMPSON Facility: Start: 04-24-2022 End: 04-24-2022 ambulatory Viviana Williamson Other [facility] Other Start: 04-24-2022 Telephone encounter Viviana iWlliamson [facility] Start: 04-18-2022 End: 04-18-2022 ambulatory Joaquín Maria Other [facility] Other Start: 04-18-2022 Follow-up encounter Joaquín Maria [facility] Start: 04-11-2022 (Mission Worker) Mission Worker Viviana Williamson [facility] Start: 04-11-2022 End: 04-11-2022 ambulatory Viviana Clay Other [facility] Other Start: 04-10-2022 End: 04-11-[address] TY THOMAS Facility:[facility] Start: 03-22-2022 End: 03-26-2022 Evaluation and management of inpatient DR TY THOMAS Facility:[facility] Start: 01-22-2022 End: 01-23-2022 ambulatory REGINO HERNADEZ Facility:[facility] Start: 01-10-2022 End: 01-10-2022 ambulatory Viviana Jefferscyrus Other [facility] Other Start: 01-10-2022 IBT for Obesity subQ 15 min (Max charge 2 units) Viviana Williamson [facility] Start: 12-04-2021 End: 12-04-2021 ambulatory Joaquín Maria Other [facility] Other Start: 12-04-2021 Follow-up encounter Joaquín Maria [facility] Start: 11-08-2021 End: 11-08-2021 ambulatory Joaquín Maria Other [facility] Other Start: 11-08-2021 Follow-up encounter Joaquín Maria [facility] Start: 10-09-2021 End: 10-10-2021 ambulatory JACI BROOKS Facility:[facility] Start: 09-27-2021 End: 09-27-2021 ambulatory Joaquín Maria Other [facility] Other Start: 09-27-2021 Follow-up encounter [facility] Start: 09-05-2021 End: 09-06-2021 ambulatory JACI BROOKS Facility: Start: 08-24-2021 ambulatory ELANA ESTES Facility: 1 Start: 08-16-2021 ([facility] RD FU) [facility] F/ U Registerd Mission Worker Viviana Williamson [facility] Start: 08-16-2021 End: 08-16-2021 ambulatory Viviana Fitt Other [facility] Other Start: 08-15-2021 End: 08-16-2021 ambulatory REGINO HERNADEZ Facility: Start: 07-16-2021 Encounter for other preprocedural examination [facility] Start: 07-16-2021 Encounter for preprocedural laboratory examination JACI [facility] Start: 07-11-2021 End: 07-12-2021 ambulatory REGINO MAGANAO Facility:[facility] Start: 07-09-2021 End: 07-10-2021 ambulatory JACI BROOKS Facility: Start: 07-09-2021 End: 07-10-2021 Encounter for other preprocedural examination JACI JIMENESER Facility: Start: 07-04-2021 End: 07-04-2021 ambulatory Joaquín Maria Other [facility] Other Start: 07-04-2021 Telephone encounter [facility] Start: 06-26-2021 ([facility] RD FU) [facility] F/ U Registerd Mission Worker Viviana Williamson [facility] Start: 06-26-2021 End: 06-26-2021 ambulatory Viviana Fitt Other [facility] Other Start: 06-26-2021 Telephone encounter [facility]ín [facility] Start: 06-04-2021 End: 06-04-2021 ambulatory Viviana Williamson Other [facility] Other Start: 06-04-2021 Telephone encounter Viviana Randhawa [facility] Start: 05-28-2021 End: 05-28-2021 ambulatory Joaquín Maria Other [facility] Other Start: 05-28-2021 Telephone encounter Joaquín [facility] Start: 05-24-2021 End: 05-24-2021 ambulatory Vivianakristine Williamson Other [facility] Other Start: 05-24-2021 Telephone encounter Viviana Williamson [facility] Start: 05-17-2021 End: 05-18-2021 ambulatory [facility] Start: 05-15-2021 End: 05-15-2021 ambulatory Joaquín Maria Other [facility] Other Start: 05-15-2021 Follow-up encounter Joaquín [facility] Start: 05-09-2021 End: 05-09-2021 ambulatory Joaquín Maria Other [facility] Other Start: 05-09-2021 Telephone encounter Joaquín [facility] Start: 04-19-2021 ([facility] WMNI) WMN Init ial Provider Viviana Zeyadcyrus [facility] Start: 04-19-2021 End: 04-19-2021 ambulatory Viviana Williamson Other [facility] Other Start: 04-09-2021 End: 04-09-2021 ambulatory Joaquín Maria Other [facility] Other Start: 04-09-2021 Follow-up encounter [facility]ín [facility] Start: 06-05-2018 End: 06-08-2018 Patient encounter procedure SR TY Morel [facility] Procedures Date Procedure Procedure Detail Performing Clinician Start: 06-05-2018 Radex wrist complete minimum 3 views SR GENESEO Plan of Treatment Date Care Activity Detail Author Start: 08-04-2024 [facility] Start: 05-12-2024 Colonoscopy DH Colonoscopy Diagnostic (Not Applicable) [facility] Start: 05-12-2024 [facility] Start: 04-20-2024 End: 04-20-2024 Patient encounter procedure 04/20/2024 12:30 PM EDT Office Visit [facility] [address] [place] [id number] Danielle Waite DO [address] [place] [id number] [facility] Start: 03-24-2024 End: 03-24-2024 Patient encounter procedure 03/24/2024 8:10 AM EST Office Visit [facility] [address] [facility] [address] [place] [id number] Echo Davila MD [address] [facility] [address] [place] [address] Arrived [facility] Comment on above: Arrived Start: 03-04-2024 Patient referral [facility] Work Phone: Start: 04-09-2023 End: 04-09-2023 Patient encounter procedure 04/09/2023 3:00 PM EST Office Visit [facility] [address] [place] [id number] Elias Domingo DO [address] [place] [address] [facility] Start: 03-24-2023 Pneumococcal Vaccine : 65+ Years (2 - PCV) Pneumococcal Vaccine: 65+ Years (2 - PCV) [facility] Start: 10-11-2022 Influenza vaccination Influenza Vacc ine (#1) [facility] Start: 1989 Screening for malign ant neoplasm of breast Mammogram [facility] Start: 1949 Screening for malign ant neoplasm of colon [facility] metabo lic 1999 panel - Serum or Plasma [facility] Comprehensive metabo lic 1999 panel - Serum or Plasma [facility] Comprehensive metabo lic 1999 panel - Serum or Plasma [facility] DXA Skeletal system.axial Views for bone density [facility] MG Breast - bilatera l Screening [facility] MG Breast - bilatera l Screening [facility] Patient Education Know your Meds [facility] Work Phone: Patient referral [facility] Work Phone: [facility] Immunizations Immunization Date Immunization Notes Care Provider Terence cooley 09-10-2024 Pneumococcal Conjuga te Vaccine, 20 valent Sonia Baig APRN Work Phone: [facility] 03-24-2022 pneumococcal polysaccharide vaccine, 23 valent [facility] 01-01-2022 COVID-19 mRNA Bivale nt Booster (Moderna) [facility] 01-01-2022 Fluzone QIV High-Dos e 65YR+ [facility] 01-01-2022 zoster vaccine recombinant [facility] 01-01-2022 influenza virus vaccine, unspecified formulation Elias Domingo DO Work Phone: [facility] 12-26-2020 COVID-19 mRNA, Comirnaty (Pfizer) [facility] 12-23-2020 zoster vaccine recombinant [facility] 05-11-2020 pneumococcal polysaccharide vaccine, 23 valent [facility] 04-17-2020 COVID-19 Vaccine Ehsan - Documentation Purposes Only Joaquín Maria Other [facility] Payers Date Payer Category Payer Medicare [id number] 2014 Medicare MEDICARE [id number] 2013 Private Health Insurance [employer] [id number] 1959 Medicare [id number] 1959 Private Health Insurance [id number] 1959 Self-pay 1949 Unknown [id number] 173 1949 Unknown [id number] 173 1949 Unknown [id number] 647 1949 Unknown [id number] 647 1949 Unknown [id number]. 593 1949 Unknown [id number]. 593 1949 Unknown [id number]. 593 1949 Unknown [id number]. 593 1949 Unknown [id number]. 593 1949 Unknown [id number] 1950 Unknown [id number] 1950 Unknown [id number] 1950 Unknown [id number] 1950 Unknown [id number] Private Health Insurance Count Includes [facility] [employer] [id number] Unknown [id number] Unknown [id number] Unknown [id number] 531 Social History Date Type Detail Facility Unknown if ever smoked [facility] Other Start: 04-09-2023 End: 04-20-2024 Sex Assigned At [employer] Other Start: 1950 Sex Assigned At Female F [facility] Tobacco smoking status MNIS Tobacco smoking consumption unknown [facility] Start: 1950 Sex Assigned At Not on file [facility] Start: 08-28-2023 End: 12-30-2023 Tobacco smoking status NHIS Ex-smoker (finding) [facility] Start: 12-23-2023 End: 05-12-2024 Sex Female (finding) [facility] History of tobacco use Current smoker [facility] History of tobacco use Cigarette Smoker [facility] Start: 04-09-2023 End: 04-20-2024 Alcoholic beverage intake Current drinker of alcohol (finding) [facility] Start: 04-09-2023 End: 04-20-2024 History of Social function [facility] Start: 04-07-2023 Alcohol Comment caffeine intak e : 1-2 cups per day [facility] Start: 08-04-2024 Tobacco smoking status [facility] Never smoked tobacco (finding) [facility] Clinical Notes 04-09-2021 to 06-29-2024 Note Date & Type Note Facility 06-29-2024 Evaluation note Authored June 29, 2024 12:04 pm Start weight: 199.7 lbs., sh e is down 27.6 lbs. today with a weight of 172.1 lbs. She is up 0.8 lbs. since her last visit on 05/04/2024. Starting waist circumference: 39.0 inches. Starting Date: 09/04/2020. Ozempic start date 08/23/2021. Ozempic start weight 184.5 pounds. She had to stop the Ozempic due to not covered by insurance. She felt it was helpful. Now on Semaglutide from [facility], down 12.4lbs.. 1. Abnormal weight gain. Her mother has similar weight issues. 2. Obesity -improved with a greater than 10% weight loss since starting our program and her weight has plateaued. She did have multiple significant weight related health issues which have improved or resolved with our program. She was having significant weight regain until starting compounded semaglutide. She had a trial off the medication with significant increase in appetite and now well-controlled without side effects. A1c is back to 5.4 and her fasting blood sugar was normal at 86. She is on Farxiga 10 mg now [...] fruits and vegetables. She is seeing the wrecking crane engine operator. The patient will treat with long-term [...] - improved with a 10% weight loss. Her last ALT was 30. She notes it was noted when she [...] and weight loss. Monitor. 7. Obstructive sleep apnea/[place] of 14/a.m. fatigue-treat with CPAP. We will [...] and weight loss. Follow-up with me in 8-12 weeks. She is going to start working with our wrecking crane engine operator for nutritional and bioimpedance follow-up. New labs needed: Up-to-date. She will need yearly blood work again 02/2025. [facility] Work Phone: [phone]) 173-760905-20-2025 Evaluation note* Author Joaquín Maria [facility] Authored June 29, 2024 12:04 pm Start weight: 199.7 lbs., sh e is down 27.6 lbs. today with a weight of 172.1 lbs. She is up 0.8 lbs. since her last visit on 05/04/2024. Starting waist circumference: 39.0 inches. Starting Date: 09/04/2020. Ozempic start date 08/23/2021. Ozempic start weight 184.5 pounds. She had to stop the Ozempic due to not covered by insurance. She felt it was helpful. Now on Semaglutide from [facility], down 12.4lbs.. 1. Abnormal weight gain. Her mother has similar weight issues. 2. Obesity -improved with a greater than 10% weight loss since starting our program and her weight has plateaued. She did have multiple significant weight related health issues which have improved or resolved with our program. She was having significant weight regain until starting compounded semaglutide. She had a trial off the medication with significant increase in appetite and now well-controlled without side effects. A1c is back to 5.4 and her fasting blood sugar was normal at 86. She is on Farxiga 10 mg now [...] fruits and vegetables. She is seeing the wrecking crane engine operator. The patient will treat with long-term [...] - improved with a 10% weight loss. Her last ALT was 30. She notes it was noted when she [...] and weight loss. Monitor. 7. Obstructive sleep apnea/[place] of 14/a.m. fatigue-treat with CPAP. We will [...] and weight loss. Follow-up with me in 8-12 weeks. She is going to start working with our wrecking crane engine operator for nutritional and bioimpedance follow-up. New labs needed: Up-to-date. She will need yearly blood work again 02/2025. Author Bryanna Ryder [facility] Authored September 14, 2024 11: 27am Start weight: 199.7 lbs., sh e is down 29.1 lbs. today with a weight of 170.6 lbs. She is down 13.9 lbs. since her last visit on 05/04/2024. Starting waist circumference: 39.0 inches. Starting Date: 09/04/2020. Ozempic start date 08/23/2021. Ozempic start weight 184.5 pounds. She had to stop the Ozempic due to not covered by insurance. She felt it was helpful. Now on Semaglutide from [facility], down 12.4lbs.. 1. Abnormal weight gain. Her mother has similar weight issues. 2. Obesity -improved with a greater than 10% weight loss since starting our program and her weight has plateaued. She did have multiple significant weight related health issues which have improved or resolved with our program. She was having significant weight regain until starting compounded semaglutide. She had a trial off the medication with significant increase in appetite and now well-controlled without side effects. A1c is back to 5.4 and her fasting blood sugar was normal at 86. She is on Farxiga 10 mg now [...] fruits and vegetables. She is seeing the wrecking crane engine operator. The patient will treat with long-term [...] - improved with a 10% weight loss. Her last ALT was 30. She notes it was noted when she [...] and weight loss. Monitor. 7. Obstructive sleep apnea/[place] of 14/a.m. fatigue-treat with CPAP. We will [...] and weight loss. Follow-up with me in 8-12 weeks. She is going to start working with our wrecking crane engine operator for nutritional and bioimpedance follow-up. New labs needed: Up-to-date. She will need yearly blood work again 02/2025. [facility] Work Phone: [phone]) 213-132005-08-2025 NoteSUBJECTIVE Reason for Visit: Penny Diane is a 73 y.o. year old female patient being seen for follow-up visit. HPI: Penny Diane is a 73 y.o. year old female with significant medical history of heart failure with reduced ejection fraction (HFrEF) due to dilated cardiomyopathy, with a recent echocardiogram from August 2023 showing a recovered ejection fraction of 60%. Pt has a history of atrial fibrillation, status post pulmonary vein isolation (PVI) ablation in May 2021, followed by posterior box isolation and posterior wall ablation in July 2021. Additionally, they underwent CTI ablation with bidirectional block in July 2021 for atrial flutter. A cardiac resynchronization therapy pacemaker (GRADUATE TEACHING ASSOCIATE-P) was implanted on January 21, 2022, and subsequently underwent AVN ablation on April 22, 2022. The patient remains stable, with ongoing monitoring for heart failure progression, including moderate mitral and tricuspid regurgitation (MR, TR), as well as arrhythmia recurrence. 06/17/2024 office visit: The patient was seen and evaluated in the office today for routine follow-up and device check. She reports feeling well overall and has no complaints at this time. She explicitly denies chest pain, shortness of breath, palpitations, lightheadedness, dizziness, or lower extremity edema. 03/26/2024 office visit: The patient was seen in the office today and reports feeling well overall. She notes occasional, mild episodes of epistaxis, which she attributes to the cold weather. The episodes have been brief and self-limiting. She was advised to monitor for increased frequency or worsening bleeding and to contact the office or seek emergency care if necessary. She denies chest pain, palpitations, dizziness, lower extremity edema or lightheadedness. Her February lipid panel review shows an LDL of 104 mg/dL, and statin therapy will be initiated in accordance with current guidelines to reduce cardiovascular risk. 09/30/2023 office visit (Jaci Brooks NP): Summary of prior visit: She presents for follow-up, feeling well, with stable blood pressure (home BP ~120s/80s) and no symptoms of heart failure or arrhythmia recurrence. A recent device check (04/22/2023) showed normal function with one brief NSVT episode (3.5 seconds). Plan includes continued GDMT, annual echocardiogram monitoring for moderate MR/TR, a stress test to evaluate ischemia given NSVT, and follow-up in six months (03/2024) if the stress test is unremarkable. Past Medical History: Diagnosis Date Anxiety Arrhythmia Atrial fibrillation (CMS/HCC) Atrial flutter (CMS/HCC) CHF (congestive heart failure) (CMS/HCC) Depression Hyperlipidemia Hypertension Nonrheumatic mitral valve regurgitation Nonrheumatic tricuspid valve regurgitation Sleep apnea Past Surgical History: Procedure Laterality Date ABLATION OF DYSRHYTHMIC FOCUS CARDIOVERSION 07/19/2020 CHOLECYSTECTOMY CTA CHEST W IV CONTRAST 05/14/2021 CT CHEST ANGIOGRAM W AND/OR WO IV CONTRAST STEVE CONVERSION Patient Active Problem List Diagnosis Atrial flutter (CMS/HCC) Hypertensive disorder Elevated liver function tests Steatohepatitis, nonalcoholic Longstanding persistent atrial fibrillation (CMS/HCC) NURIA (obstructive sleep apnea) Chronic systolic congestive heart failure (CMS/HCC) Nonrheumatic mitral valve regurgitation Nonrheumatic tricuspid valve regurgitation Paroxysmal atrial fibrillation (CMS/HCC) Presence of cardiac resynchronization therapy pacemaker (GRADUATE TEACHING ASSOCIATE-P) Anxiety Depression Fatty liver Hypercholesterolemia Overweight (BMI 25.0-29.9) Post-menopausal Pre-diabetes Screening for osteoporosis Maxillary sinusitis Speech abnormality family history includes Hypertension in her mother. Social History Tobacco Use Smoking status: Former Types: Cigarettes Smokeless tobacco: Never Substance Use Topics Alcohol use: Yes Comment: OCCASIONAL Drug use: Never OBJECTIVE Visit Vitals OB Status Postmenopausal Smoking Status Former Physical Exam Constitutional: General Appearance: well-developed, appears stated age. Level of Distress: no acute distress. Neck: Jugular Veins: normal jugular venous pressure. Lungs: Auscultation: no rales or rhonchi and normal breath sounds. Cardiovascular: Rate And Rhythm: regular Heart Sounds: normal S1 and s2; Systolic Murmur: not heard. Diastolic Murmur: not heard. Extremities: no edema Peripheral Pulses: Pulses: full and equal in all extremities except if noted. Abdomen: Inspection and Palpation: non distended or tender and soft. Musculoskeletal: Inspection: no joint tenderness or swelling. Neurologic: Gait: normal gait. Psychiatric: Mental Status: alert and normal affect. Skin: Inspection and Palpation: warm and dry. Allergies: Allergies Allergen Reactions Penicillins Unknown Outpatient Medications: Current Outpatient Medications Medication Instructions atorv (more content not included)...[facility] 04-20-2024 History of Present illness Narrative* Danielle Waite, - 04/20/2024 12:30 PM EDT Images from the original note were not included. Chief Complaint Patient presents with Sleep Apnea Subjective Penny Diane, 73 y.o., female here in follow up for NURIA. HPI Pt states that she is doing well with her cpap machine. She states that she patches the holes as they come. She statse that she cannot lock them out as it is an open space. She is wearing her machinenightly. Pt states that she can tell that she is rested as she has energy the next day. Pt states that she still naps on occasion. She has trouble with her cats biting holes into her tubing. She is getting 8 hrs of sleep a night. She was seen for inspire but has not made a decision on this yet. She does not know who sent her for the consult. She states that she does get benefit from the machine and has been compliant with it.She states that she does not like the CPAP machine,. She states that is a nuisance and can be loud. She thinks that she saw ENT. And she is deciding on whether she wants it or not. She is taking it off and sleeping for about 2 hours with it off. 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 -NYHA 1B -Continue GDMT, Toprol-XL 100 mg, lisinopril 20 mg, Lasix 40 mg twice daily, will start Farxiga after procedure and have patient get BMP 2 weeks later -Was recently discharged from [facility] for acute decompensated heart failu Cirrhosis ([facility]) Elevated liver function tests 10/23/2016 Hypertension ([facility]) Hypertensive disorder ([facility]) 06/27/2020 Last Assessment & Plan: - Hypertension stable -Continue medications Longstanding persistent atrial fibrillation ([facility]) 03/08/2022 Added automatically from request for surgery [id number] Last Assessment & Plan: - [id number] -Continue Xarelto 20 mg, metoprolol XL 100 mg, Cardizem 360 mg -Status post [employer] TEACHING ASSOCIATE-P pending AVN ablation Nonrheumatic mitral valve regurgitation 04/09/2023 Last Assessment & Plan: - Moderate MR per recent echo -We will monitor with echocardiograms annually Nonrheumatic tricuspid valve regurgitation 04/09/2023 Last Assessment & Plan: - Moderate tricuspid regurgitation -Monitor with echocardiograms Nosebleed 2024 NURIA (obstructive sleep apnea) 04/21/2022 Last Assessment & Plan: -continue compliance with cpap Paroxysmal atrial fibrillation ([facility]) 05/23/2020 Added automatically from request for surgery [id number] Presence of cardiac resynchronization therapy pacemaker (GR[employer]UATE TEACHING ASSOCIATE-P) 06/19/2022 Steatohepatitis, nonalcoholic 10/23/2016 Past Surgical History: Procedure Laterality Date CARDIAC PACEMAKER PLACEMENT CHOLECYSTECTOMY 2017 open choley liver biopsy CT ANGIOGRAM HEART CORONARY 05/14/2021 CT ANGIOGRAM TAVR WRIST SURGERY 2009 Family History Problem Relation Name Age of Onset Hypertension Mother Mer Blanchardphillip Tapia Cancer Mother Mer Blanchardphillip Tapia Hearing loss Mother Mer Tapia Heart failure Mother Mer Tapia Hearing loss Father Crystal Tapia Cancer Sister Bruna Mac Social History Tobacco Use Smoking status: Former Types: Cigarettes Smokeless tobacco: Not on file Substance Use Topics Alcohol use: Yes Alcohol/week: 1.0 - 2.0 standard drink of alcohol Types: 1 - 2 Glasses of wine per week Comment: caffeine intake : 1-2 cups per day Allergies: Penicillins General: No fever or chills HEENT: No nasal congestion or runny nose Pulmonary: No shortness of breath or cough Cardiovascular: No chest pain or palpitations GI: No nausea or vomiting : No dysuria or hematuria Musculoskeletal: No new aches or pains or muscle weakness Infectious: no recurrent fevers or infections Dermatologic: No rashes or skin lesions Neurologic: No new headaches or dizziness Vitals: 04/20/24 1240 BP: 118/76 Pulse: 70 SpO2: 97% Body mass index is 29.62 kg/m . weight: 178 lb Neurologic exam: General: Normal body habitus, cooperative, pleasant Mental status: Awake, alert to person, place and time. Recent and remote memory are intact. Attention and concentration are normal. Fund of knowledge is appropriate for level of education. HEENT: NC/AT Cranial nerves: CN II: Visual berry full to confrontation. No loss of vision CN III, IV, : pupils equal round and reactive to light. Extraocular movements intact. No ptosis present. CN V: Facial sensation is normal. CN VII: Full and symmetric facial movement. CN VIII: Hearing is normal CN IX and X: Palate elevates symmetrically. CN XI: Shoulder shrug is normal bilaterally. CN XII: Tongue is midline without atrophy or fasciculation. Speech: Clear and fluent no aphasia or dysarthria Pronator drift: Negative bilateral upper extremity Coordination: Intact, no signs of dysmetria Good finger to nose and rapid alternating movements Sensory: Sensation is intact to light, temperature and vibratory touch throughout four extremities. Motor: LUE 5/5 RUE 5/5 LLE 5/5 RLE 5/5 Tone: Physiologic, no tremor, bradykinesia or rigidity DTR: Bilateral Biceps 2/4 Bilateral BR 2/4 Bilateral Patellar 2/4 No spasticity Gait: Normal to casual gait Romberg's Negative Review and summary of old records: Assessment/Plan Diagnoses and all orders for this visit: NURIA (obstructive sleep apnea) Hypoxia Hypersomnia Snoring 73-year-old female with a severe obstructive sleep apnea with an apnea-hypopnea index of 59 and hypoxia down to 75 percent. This is leading to daytime hypersomnolence and snoring. She does get good benefit from the CPAP and is compliant with it. She is using it 100% of the time with 87% of the timegreater than 4 hours with an average nightly usage of 6 hours and 14 minutes with an AHI of 0.4. She does feel like it is a nuisance and does not like it. She takes it off and sleeps for 2 hours without it on. She does not like the feel of it on her face but also it can be loud which is not the machines fault it is actually that her cats will bite into the tubing and leave small holes in it whichthen caused a high pitch leak sound. She has put some better bite or something on it so the cats donot bite it or lock the cat's out or create them. She refuses to do this. We did discuss the inspire it could be an option for her. She was counseled then Spire dizzy not always bring the AHI down tohow well controlled hers is so some people do not like it as much for that reason. She is still zulema g to think about it and then she will let us know if she decides to proceed with it and then we canget her set up with her after inspire appointments to turn it on etc.. Plan Continue use a CPAP machine and she should wear it whenever sleeping and not take it off for 2 hours at the end of the sleep phase Create the cats or get them away from the tubing she could use better bite or something so they do not show on the tubing and put it away during the day She was counseled on inspire with the pros and the cons She has let us know if she decides to proceed with the inspire. She is tolerating the CPAP machine and getting benefit so it is unclear if she will be A candidate for it The patient was counseled on proper sleep hygiene and adequate hours of sleep. The patient was counseled on the risks of stroke, DC, and sudden with NURIA, along with the need for compliance with the CPAP/BiPAP treatment. The diagnosis was all discussed with the patient. All questions were answered and they agreed with the treatment plan. Patient will call if there are any new issues or questions. Pt has been fully educated on their diagnosis, treatment options, follow up plan, and return instructions Return to clinic: follow up 1 year or sooner if she decides to proceed with the inspire, let us know documented in this encounterGeneral Leonard Wood Army Community [id number] NotePatient here for 6 mo follow up PAF, CHF, valve disorder, and NSVT. She is due for routine device interrogation next month. Patient had routine labs with lipid panel drawn a few weeks ago. She still goes to cardiac rehab twice a week. Penny denies chest pain, SOB, palpitations, and lightheadedness/syncope. She does have infrequent episodes of epistaxis, which she says only bleeds for a few minutes. Review of Systems HENT: Positive for nosebleeds. Respiratory: Positive for cough. All other systems reviewed and are negative.[facility] 03-26-2024 NoteSUBJECTIVE Reason for Visit: Penny Diane is a 73 y.o. year old female patient being seen for follow-up visit. HPI: Penny Diane is a 73-year-old female with a past medical history of heart failure with reduced ejection fraction (HFrEF) due to dilated cardiomyopathy, with a recent echocardiogram from August 2023 showing a recovered ejection fraction of 60%. Pt has a history of atrial fibrillation, status post pulmonary vein isolation (PVI) ablation in May 2021, followed by posterior box isolation and posterior wall ablation in July 2021. Additionally, they underwent CTI ablation with bidirectional block in July 2021 for atrial flutter. A cardiac resynchronization therapy pacemaker (GRADUATE TEACHING ASSOCIATE-P) was implanted on January 21, 2022, and they subsequently underwent atrioventricular node (AVN) ablation on April 22, 2022. The patient remains stable, with ongoing monitoring for heart failure progression, including moderate mitral and tricuspid regurgitation (MR, TR), as well as arrhythmia recurrence. 03/26/2024 follow-up office visit: The patient was seen in the office today and reports feeling well overall. She notes occasional, mild episodes of epistaxis, which she attributes to the cold weather. The episodes have been brief and self-limiting. She was advised to monitor for increased frequency or worsening bleeding and to contact the office or seek emergency care if necessary. She denies chest pain, palpitations, dizziness, lower extremity edema or lightheadedness. Her February lipid panel review shows an LDL of 104 mg/dL, and statin therapy will be initiated in accordance with current guidelines to reduce cardiovascular risk. 09/30/2023 Office Visit (Jaci Brooks NP) Summary of prior visit: She presents for follow-up, feeling well, with stable blood pressure (home BP ~120s/80s) and no symptoms of heart failure or arrhythmia recurrence. A recent device check (04/22/2023) showed normal function with one brief NSVT episode (3.5 seconds). Plan includes continued GDMT, annual echocardiogram monitoring for moderate MR/TR, a stress test to evaluate ischemia given NSVT, and follow-up in six months (03/2024) if the stress test is unremarkable. Past Medical History: Diagnosis Date Anxiety Arrhythmia Atrial fibrillation (CMS/HCC) Atrial flutter (CMS/HCC) CHF (congestive heart failure) (CMS/HCC) Depression Hyperlipidemia Hypertension Nonrheumatic mitral valve regurgitation Nonrheumatic tricuspid valve regurgitation Sleep apnea Past Surgical History: Procedure Laterality Date ABLATION OF DYSRHYTHMIC FOCUS CARDIOVERSION 07/19/2020 CHOLECYSTECTOMY CTA CHEST W IV CONTRAST 05/14/2021 CT CHEST ANGIOGRAM W AND/OR WO IV CONTRAST STEVE CONVERSION Patient Active Problem List Diagnosis Atrial flutter (CMS/HCC) Hypertensive disorder Elevated liver function tests Steatohepatitis, nonalcoholic Longstanding persistent atrial fibrillation (CMS/HCC) NURIA (obstructive sleep apnea) Chronic systolic congestive heart failure (CMS/HCC) Nonrheumatic mitral valve regurgitation Nonrheumatic tricuspid valve regurgitation Paroxysmal atrial fibrillation (CMS/HCC) Presence of cardiac resynchronization therapy pacemaker (GRADUATE TEACHING ASSOCIATE-P) Anxiety Depression Fatty liver Hypercholesterolemia Overweight (BMI 25.0-29.9) Post-menopausal Pre-diabetes Screening for osteoporosis Maxillary sinusitis Speech abnormality family history includes Hypertension in her mother. Social History Tobacco Use Smoking status: Former Types: Cigarettes Smokeless tobacco: Never Substance Use Topics Alcohol use: Yes Comment: OCCASIONAL Drug use: Never OBJECTIVE Visit Vitals BP 128/84 (BP Location: Left arm, Patient Position: Sitting) Pulse 70 Ht 1.676 m (5' 6 ) Wt 78.9 kg (174 lb) SpO2 98% BMI 28.08 kg/m??? OB Status Postmenopausal Smoking Status Former BSA 1.92 m??? Physical Exam Constitutional: General Appearance: well-developed, appears stated age. Level of Distress: no acute distress. Neck: Jugular Veins: normal jugular venous pressure. Lungs: Auscultation: no rales or rhonchi and normal breath sounds. Cardiovascular: Rate And Rhythm: regular. A soft holosystolic murmur was heard at the apex with axillary radiation, consistent with mild MR. A soft early systolic murmur was noted at the left lower sternal border, consistent with mild TR. No diastolic murmurs, rubs, or gallops. Peripheral Pulses: Pulses: full and equal in all extremities except if noted. Abdomen: Inspection and Palpation: non distended or tender and soft. Musculoskeletal: Inspection: no joint tenderness or swelling. Neurologic: Gait: normal gait. Psychiatric: Mental Status: alert and normal affect. Skin: Inspection and Palpation: warm and dry. Allergies: Allergies Allergen Reactions Penicillins Unknown Outpatient Medications: Current Outpatient Medications Medication Instructions atorvas (more content not included)...[facility] 03-24-2024 History of Present illness Narrative* Echo Davila MD - 03/24/2024 8:10 AM EST Images from the original note were not included. Subjective Patient ID: Penny Diane is a 73 y.o. female who presents for Throat Problem (Consult ) Pt in speech tx and need laryngeal exam before starting high effort phonatory tx. Review of Systems All other systems reviewed and are negative. Family History Problem Relation Name Age of Onset Hypertension Mother Mer Tapia Cancer Mother Mer Tapia Hearing loss Mother Mer Tapia Heart failure Mother Mer Marint Willie Hearing loss Father Crystal Tapia Cancer Sister Bruna Mac Active Ambulatory Problems Diagnosis Date Noted Anxiety 09/30/2023 Depression (CMS/HCC) 09/30/2023 Fatty liver 03/24/2024 Hypercholesterolemia (CMS/HCC) 09/30/2023 Maxillary sinusitis 03/24/2024 Post-menopausal 09/30/2023 Pre-diabetes 09/30/2023 Screening for osteoporosis 09/30/2023 Speech abnormality 03/24/2024 Resolved Ambulatory Problems Diagnosis Date Noted Atrial flutter (CMS/HCC) 08/20/2021 Chronic systolic congestive heart failure (CMS/HCC) 04/09/2023 Elevated liver function tests 10/23/2016 Hypertensive disorder (CMS/HCC) 06/27/2020 Longstanding persistent atrial fibrillation (CMS/HCC) 03/08/2022 Nonrheumatic mitral valve regurgitation 04/09/2023 Nonrheumatic tricuspid valve regurgitation 04/09/2023 NURIA (obstructive sleep apnea) 04/21/2022 Paroxysmal atrial fibrillation (CMS/HCC) 05/23/2020 Presence of cardiac resynchronization therapy pacemaker (GRADUATE TEACHING ASSOCIATE-P) 06/19/2022 Steatohepatitis, nonalcoholic 10/23/2016 Past Medical History: Diagnosis Date Cirrhosis (CMS/HCC) Hypertension (CMS/HCC) Nosebleed 2024 Past Surgical History: Procedure Laterality Date CARDIAC PACEMAKER PLACEMENT CHOLECYSTECTOMY 2016 open choley liver biopsy CT ANGIOGRAM HEART CORONARY 05/14/2021 CT ANGIOGRAM TAVR WRIST SURGERY 2008 Allergies Allergen Reactions Penicillins Other Reaction(s): Unknown Current Outpatient Medications on File Prior to Visit Medication Sig Dispense Refill Dupixent 300 MG/2ML solution auto-injector EVERY 2 WEEKS Farxiga 10 MG lisinopril 20 MG tablet Take 1 tablet by mouth in the morning and 1 tablet before bedtime. metoprolol succinate XL (Toprol-XL) 100 MG 24 hr tablet Take 1 tablet by mouth Daily potassium chloride CR (Klor-Con M20) 20 MEQ ER tablet Take 20 mEq by mouth in the morning and 20 mEq in the evening. Semaglutide,0.25 or 0.5MG/DOS, 2 MG/3ML solution pen-injector every week venlafaxine XR (Effexor XR) 150 MG 24 hr capsule Take 1 capsule by mouth Daily [DISCONTINUED] dilTIAZem CD (Cardizem CD) 360 MG 24 hr capsule [DISCONTINUED] Xarelto 20 MG tablet Take 1 tablet by mouth Daily furosemide (Lasix) 40 MG tablet Take 40 mg by mouth in the morning and 40 mg in the evening. No current facility-administered medications on file prior to visit. Objective Last Recorded Vitals Vitals: 03/24/24 0805 BP: 133/81 Pulse: 71 ENT Physical Exam Constitutional Appearance: patient appears well-developed, well-nourished and well-groomed, Communication/Voice: communication appropriate for developmental age; vocal quality normal; Patient ID: Penny Diane is a 73 y.o. female. Procedures A diagnostic flexible fiberoptic laryngoscopy was performed. The flexible fiberoptic laryngoscope was placed into the nose and advanced to the level of the tip of the epiglottis. Examination of the larynx including both surfaces of the epiglottis false and true vocal folds, arytenoids and surrounding mucosal surfaces show no evidence of lesion, ulceration or mass. Normal bilateral true vocal foldmotion is present. Bilateral piriform sinuses and base of tongue appear without lesion. There is noevidence of vocal fold hemorrhage, sig LPRD or laryngeal hyperfunction. 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 Assessment/Plan Diagnoses and all orders for this visit: Hoarse The above findings were noted on laryngoscopy. Pt given copy of note for her speech therapist. If surgical management of left TVC bowing to be considered, recommend referral to Dr Danielle Fowler at in [place]. documented in this [facility]01-28-2025 Evaluation note* Author Joaquín Maria [facility] Authored March 09, 2024 1 :00pm Start weight: 199.7 lbs., sh e is down 24.6 lbs. today with a weight of 175.1 lbs. She is up 0.6 lbs. since her last visit on 12/23/2023. Starting waist circumference: 39.0 inches. Starting Date: 09/04/2020. Ozempic start date 08/23/2021. Ozempic start weight 184.5 pounds. She had to stop the Ozempic due to not covered by insurance. She felt it was helpful. Now on Semaglutide from [place], down 9.4 lbs.. 1. Abnormal weight gain. Her mother has similar weight issues. 2. Obesity -improved with a greater than 10% weight loss since starting our program but her weight has plateaued and she does have multiple significant weight related health issues. She was having significant weight regain until starting compounded semaglutide. She had a trial off the medication with significant increase in appetite and now well-controlled without side effects. A1c is back to 5.4 and her fasting blood sugar was normal at 86. She is on Farxiga 10 mg now [...] fruits and vegetables. She is seeing the wrecking crane engine operator. The patient will treat with long-term [...] - improved with a 10% weight loss. Her last ALT was 30. She notes it was noted when she [...] and weight loss. Monitor. 7. Obstructive sleep apnea/[place] of 14/a.m. fatigue-treat with CPAP. We will [...] me in 8 weeks. New labs needed: Up-to-date. She will need yearly blood work again 02/2025. Author Bryanna Ryder [facility] Authored May 04, 2024 11: 19am Start weight: 199.7 lbs., sh e is down 28.4 lbs. today with a weight of 171.3 lbs. She is down 3.8 lbs. since her last visit on 03/09/2024. Starting waist circumference: 39.0 inches. Starting Date: 09/04/2020. Ozempic start date 08/23/2021. Ozempic start weight 184.5 pounds. She had to stop the Ozempic due to not covered by insurance. She felt it was helpful. Now on Semaglutide from [facility], down 13.2lbs.. 1. Abnormal weight gain. Her mother has similar weight issues. 2. Obesity -improved with a greater than 10% weight loss since starting our program but her weight has plateaued and she does have multiple significant weight related health issues. She was having significant weight regain until starting compounded semaglutide. She had a trial off the medication with significant increase in appetite and now well-controlled without side effects. A1c is back to 5.4 and her fasting blood sugar was normal at 86. She is on Farxiga 10 mg now [...] fruits and vegetables. She is seeing the wrecking crane engine operator. The patient will treat with long-term [...] - improved with a 10% weight loss. Her last ALT was 30. She notes it was noted when she [...] and weight loss. Monitor. 7. Obstructive sleep apnea/[place] of 14/a.m. fatigue-treat with CPAP. We will [...] me in 8 weeks. New labs needed: Up-to-date. She will need yearly blood work again 02/2025. [facility] Work Phone: 1(943) 447-248401-28-2025 Evaluation note* Author Joaquín Maria [facility] Authored March 09, 2024 1 2:00pm Start weight: 199.7 lbs., sh e is down 24.6 lbs. today with a weight of 175.1 lbs. She is up 0.6 lbs. since her last visit on 12/23/2023. Starting waist circumference: 39.0 inches. Starting Date: 09/04/2020. Ozempic start date 08/23/2021. Ozempic start weight 184.5 pounds. She had to stop the Ozempic due to not covered by insurance. She felt it was helpful. Now on Semaglutide from [facility], down 9.4 lbs.. 1. Abnormal weight gain. Her mother has similar weight issues. 2. Obesity -improved with a greater than 10% weight loss since starting our program but her weight has plateaued and she does have multiple significant weight related health issues. She was having significant weight regain until starting compounded semaglutide. She had a trial off the medication with significant increase in appetite and now well-controlled without side effects. A1c is back to 5.4 and her fasting blood sugar was normal at 86. She is on Farxiga 10 mg now [...] fruits and vegetables. She is seeing the wrecking crane engine operator. The patient will treat with long-term [...] - improved with a 10% weight loss. Her last ALT was 30. She notes it was noted when she [...] and weight loss. Monitor. 7. Obstructive sleep apnea/[place] of 14/a.m. fatigue-treat with CPAP. We will [...] me in 8 weeks. New labs needed: Up-to-date. She will need yearly blood work again 02/2025. [facility] Work Phone: 1(263) 570-452411-12-2024 Evaluation note* Author Joaquín Maria [facility] Authored December 23, 2023 1:15pm Start weight: [...] it was helpful. Now on Semaglutide from [facility], down 10 lbs.. 1. Abnormal weight gain. [...] fruits and vegetables. She is seeing the wrecking crane engine operator. The patient will treat with long-term [...] and weight loss. Monitor. 7. Obstructive sleep apnea/[place] of 14/a.m. fatigue-treat with CPAP. We will [...] to her next visit. Author Joaquín Maria [facility] Authored October 28, 2023 1:11pm Start weight: 199.7 lbs., sh e is [...] it was helpful. Now on Semaglutide from [facility], down 4.4 lbs.. 1. Abnormal weight gain. [...] fruits and vegetables. She is seeing the wrecking crane engine operator. The patient will treat with long-term [...] and weight loss. Monitor. 7. Obstructive sleep apnea/[place] of 14/a.m. fatigue-treat with CPAP. We will [...] regular blood work with her PCP and education program associate. [facility] Work Phone: 1(267) 122-756411-12-2024 Evaluation note* Author Joaquín Maria [facility] Authored December 23, 2023 1:15pm Start weight: [...] it was helpful. Now on Semaglutide from [facility], down 10 lbs.. 1. Abnormal weight gain. [...] her house. She does not qualify for [facility] patient assistance. I continue to recommend not skipping meals and following the plate method. She must try to get in more fruits and vegetables. She is seeing the wrecking crane engine operator. The patient will treat with long-term [...] and weight loss. Monitor. 7. Obstructive sleep apnea/[place] of 14/a.m. fatigue-treat with CPAP. We will [...] hemoglobin A1c prior to her next visit. [facility] Work Phone: 1(747) 688-163909-17-2024 Evaluation note* Author Meron Mathis [facility] Authored December 23, 2023 11:14am Start weight: 199.7 lbs., sh e is [...] it was helpful. Now on Semaglutide from [facility], down 10 lbs.. 1. Abnormal weight gain. [...] her house. She does not [facility]. I continue to recommend not skipping meals and following the plate method. She must try to get in more fruits and vegetables. She is seeing the wrecking crane engine operator. The patient will treat with long-term [...] and weight loss. Monitor. 7. Obstructive sleep apnea/[place] of 14/a.m. fatigue-treat with CPAP. We will [...] regular blood work with her PCP and education program associate. Author Joaquín Maria [facility] Authored October 28, 2023 1:11pm Start weight: 199.7 lbs., sh e is [...] it was helpful. Now on Semaglutide from [facility], down 4.4 lbs.. 1. Abnormal weight gain. [...] fruits and vegetables. She is seeing the wrecking crane engine operator. The patient will treat with long-term [...] and weight loss. Monitor. 7. Obstructive sleep apnea/[place] of 14/a.m. fatigue-treat with CPAP. We will [...] regular blood work with her PCP and education program associate. [facility] Work Phone: 1(784) 400-941108-20-2024 NotePt is here for a six month follow up, afib, heart failure, htn, ppm, valve disorder, had a echo last month. Review of Systems Respiratory: Positive for cough. All other systems reviewed and are negative.[facility] 09-30-2023 [facility]Cardi[facility] SUBJECTIVE Chief Complaint Patient presents with Atrial Fibrillation Hypertension NSVT Penny Diane is a 72 y.o. female here for follow-up. HPI PMHx: HFrEF d/t dilated cardiomyopathy with recent echo 08/2023 showing recovered EF of 60%, afib s/p PVI ablation 05/2021 + Posterior box isolation+ Ablation of posterior wall on 07/2021, atrial flutter s/p CTI ablation with bidirectional block 07/2021, s/p GRADUATE TEACHING ASSOCIATE-P 01/21/22, AVN ablation 04/22/2022 She has been [...] (CMS/HCC) Presence of cardiac resynchronization therapy pacemaker (GRADUATE TEACHING ASSOCIATE-P) Anxiety Depression Fatty liver Hypercholesterolemia Overweight (BMI [...] QRS DURATION 04/22/2022 128 (more content not included)...[facility]07-16-2024 Evaluation note* Author Joaquín Maria [facility] Authored August 26, 2023 2:16 pm Start [...] it was helpful. Now on Semaglutide from [employer], down 9.3 lbs. Has since quit Sema/ [...] fruits and vegetables. She is seeing the wrecking crane engine operator. The patient will treat with long- [...] and weight loss. Monitor. 7. Obstructive sleep apnea/[place] of 14/a.m. fatigue-treat with CPAP. We will [...] regular blood work with her PCP and education program associate. [facility] Work Phone: 1(439) 883-963007-16-2024 Evaluation note* Author Joaquín Maria [facility] Authored August 26, 2023 2:16 pm Start [...] fruits and vegetables. She is seeing the wrecking crane engine operator. The patient will treat with long- [...] and weight loss. Monitor. 7. Obstructive sleep apnea/[place] of 14/a.m. fatigue-treat with CPAP. We will [...] regular blood work with her PCP and education program associate. Author Bryanna Ryder [facility] Authored October 28, 2023 1:48pm Start weight: [...] it was helpful. Now on Semaglutide from [facility], down 4.4 lbs.. 1. Abnormal weight gain. [...] fruits and vegetables. She is seeing the wrecking crane engine operator. The patient will treat with long- [...] and weight loss. Monitor. 7. Obstructive sleep apnea/[place] of 14/a.m. fatigue-treat with CPAP. We will [...] regular blood work with her PCP and education program associate. [facility] Work Phone: 1([phone]) 802-917702-07-2024 Telephone encounter Note* Telephone Encounter - Julian Nielsen - 03/19/2023 1:58 PM EST Patient is scheduled. [facility] [id number] Miscellaneous Notes* Telephone Encounter - Julian Nielsen [...] Julian Nielsen - 03/05/2023 5:10 PM EST [facility] received a referral for this patient. Dx: inspire rossy / [facility] INSURANCE: medicare Referral is in [facility] for review. [facility] [id number] Evaluation note* Encounter Date Diagnosis Assessment Notes [...] Mar, Metabolic syndrome X (ICD-10 - E88.81) [facility] Other 02-01-2024 Evaluation note* Author Bryanna Ryder [facility] Authored August 26, 2023 1:58 pm Start weight: 199.7 lbs., olena membreno is down 19.5 lbs. today with a weight of 180.2 lbs. She is up 5.0 lbs. since her last visit on 03/13/2023. Starting waist circumference: 39.0 inches. Starting Date: 09/04/2020. Ozempic start date 08/23/2021. Ozempic start weight 184.5 pounds. She had to stop the Ozempic due to not covered by insurance. She felt it was helpful. Now on Semaglutide from [employer] [place], down 9.3 lbs. Has since quit Sema/ [...] fruits and vegetables. She is seeing the wrecking crane engine operator. The patient will treat with long-term [...] and weight loss. Monitor. 7. Obstructive sleep apnea/[place] of 14/a.m. fatigue-treat with CPAP. We will [...] regular blood work with her PCP and education program associate. [facility] Work Phone: 1([phone]) 266-793901-25-2024 Telephone encounter Note* Telephone Encounter - Julian Nielsen - 03/06/2023 5:59 PM EST (1st call) left voicemail [facility] [id number] Telephone encounter Note* Telephone Encounter - Julian Nielsen - 03/06/2023 5:58 PM EST Images from the original note were not included. Referral approved [facility]ing [id number] Telephone encounter Note* Telephone Encounter - Julian Nielsen - 03/05/2023 5:10 PM EST [facility] received a referral for this patient. Dx: inspire consult / nuria - [facility] INSURANCE: medicare Referral is in [facility] for review. [facility] [id number] Evaluation note* Encounter Date Diagnosis Assessment Notes [...] would need to be undertaken at the education program associate office while heart rhythm and pacing parameters [...] changes in symptoms and/or problems with treatment [facility] Other 10-25-2023 Evaluation note* Encounter Date Diagnosis [...] 1-2 x/week in addition to cardiac rehab [facility] Other 10-12-2023 Evaluation note* Encounter Date Diagnosis [...] Nov, Metabolic syndrome X (ICD-10 - E88.81) [facility] Other 08-08-2023 Evaluation note* Encounter Date Diagnosis [...] Metabolic syndrome X (ICD-10 - E88.81) Not [id number] Evaluation note* Encounter Date Diagnosis Assessment Notes [...] Jul, Metabolic syndrome X (ICD-10 - E88.81) [place] [employer] Other 03-09-2023 Evaluation note* Encounter Date Diagnosis [...] Apr, Metabolic syndrome X (ICD-10 - E88.81) [facility] Other 03-02-2023 Evaluation note* Encounter Date Diagnosis [...] set the following goals: NOT REVIEWED TODAY [facility] Other 12-01-2022 Evaluation note* Encounter Date Diagnosis [...] sister on phone or an audio book [facility] Other 10-25-2022 Evaluation note* Encounter Date Diagnosis [...] Nov, Metabolic syndrome X (ICD-10 - E88.81) [facility] Other 09-29-2022 Evaluation note* Encounter Date Diagnosis [...] Oct, Metabolic syndrome X (ICD-10 - E88.81) [facility] Other 08-18-2022 Evaluation note* Encounter Date Diagnosis [...] Sep, Metabolic syndrome X (ICD-10 - E88.81) [facility] Other 07-07-2022 Evaluation note* Encounter Date Diagnosis [...] sister on phone or an audio book [employer] Other 05-17-2022 Evaluation note* Encounter Date Diagnosis [...] increase protein to about 15 g /meal [facility] Other 04-05-2022 Evaluation note* Encounter Date Diagnosis [...] May, Metabolic syndrome X (ICD-10 - E88.81) [facility] Other 03-10-2022 Evaluation note* Encounter Date Diagnosis [...] w/ zak - NEW: choose healthier snacks [facility] Other 02-28-2022 Evaluation note* Encounter Date Diagnosis [...] Mar, Metabolic syndrome X (ICD-10 - E88.81) [facility] Other Evaluation noteNo InformationNort [employer] Other Evaluation noteNo assessment information available [facility] Work Phone: Evaluation note* Diagnosis Hoarse- Primary Dysphonia documented [facility]* Diagnosis NURIA (obstructive sleep apnea)- Primary Obstructive sleep apnea (adult) (pediatric) Hypoxia Hypoxemia Hypersomnia Hypersomnia, unspecified Snoring Other dyspnea and respiratory abnormality documented in this encounter [facility] HealthcareHistory general Narrative - Reported* Type Description Date Medical History depression Medical History anxiety Medical History high blood pressure Medical History Atrial fibrillation Medical History snoring Surgical History gall bladder [facility] Other [facility] Narrative - Reported* Type Description Date Medical History depression Medical History anxiety Medical History high blood pressure Medical History Atrial fibrillation Medical History snoring Medical History sleep apnea Surgical History Lesson Prep bladder [facility] Other Hisdyrh general Narrative - Reported* Type Description Date Medical History depression Medical History anxiety Medical History high blood pressure Medical History Atrial fibrillation Medical History snoring Medical History sleep apnea Medical History CHF Medical History Pacemaker 01-21-2022 Surgical History gall bladder Surgical History Pacemaker Hospitalization History See above [facility] Other Hisqerm general Narrative - Reported* Type Description Date Medical History depression Medical History anxiety Medical History high blood pressure Medical History Atrial fibrillation Medical History snoring Medical History sleep apnea Medical History CHF Medical History Pacemaker 01-21-2022 Medical History Heart ablation Surgical History gall bladder Surgical History Pacemaker Surgical History Heart Ablation [facility] Hospitalization History See above [facility] Other Hospital Discharge instructionsAmbulatory Orders* Referral to ENT Time Frame: 03/04/24, Location: None Selected * AMB Cologuard Time Frame: 03/04/24, Location: Determined By Patient [facility] Work Phone: Hospital Discharge instructions Additional Instructions DISCHARGE INSTRUCTIONS FOR COLONOSCOPY WHAT TO EXPECT: - You may feel full, gassy or cramping after your procedure. In some cases, this may be from a few hours to a day. Walking may help relieve the discomfort. - If you have polyp(s) removed you may note some minor bloody discharge after your first bowel movements. - You should begin to recover from anesthesia within 1 hour of the procedure, however may feel groggy for the next 24 hours. DO's AND DON'Ts: - Call your doctor right away if you have a hard abdomen, severe pain, are passing lots of bright red blood or clots. - Call your doctor if you develop any rashes, hives or difficulty breathing. - Let your doctor know if you have not had a bowel movement by 3 days after your procedure. - If you take 81 mg aspirin for your heart it is safe to resume this medication. - If you take other blood thinner medications your doctor will instruct you when these can safely be resumed. - Do NOT drive for 24 hours. - Do NOT operate machinery such as power tools, lawn mowers, snow blowers, sewing machines, etc. for 24 hours. - Avoid alcoholic beverages and drugs for allergies, nerves, or sleep. - Do NOT stay alone. Do NOT leave your child unattended. - Do NOT make important personal or business decisions or sign any legal documents. - Eat solid foods and drink liquids in smaller amounts than usual until normal appetite returns. If you should experience an upset stomach, liquids high in sugar content (soda, Jamison-Aid, non-acid juices) are recommended. - You can resume normal activities tomorrow. FOLLOW UP & RECOMMENDATIONS: -Notify the doctor if you have any problems. -Follow up with PCP. -Office number [phone]. [place] [facility] Work Phone: Reason for referral (narrative)No reason for referral information availableHolmes County [facility] Work Phone: Summary Purpose Family History Relationship Condition Age [...] Date/ Time Advance Directives No December 11:14am Advance Directive Response Recorded Date/ Time Advance Directives No December 12:14pm Chief Complaint and Reason for Visit Chief Complaint Wmn Obesity Interested in [place]/[facility] Chief Complaint Establish Reason for Visit Essential [...] 1:22pm Overweight (BMI 25.0-29.9) October 1:22pm Pre-diabetes Albertina 17th, 2024 1:22pm Essential hypertension December 22 10:43am Fatty liver December 23, 2023 10:43am Hypercholesterolemia December 23, 2023 10:43am Obstructive sleep apnea December 22, 024 10:43am Overweight (BMI 25.0-29.9) December 10:43am Pre-diabetes December 23, 2023 10:43am Maxillary sinusitis December 30, 2023 1:57pm Chief Complaint Admit Date Sore Throat/Cough December 30, 2023 1:57pm 6 month f/u March 04, 2024 1 0:23am Reason for Visit Admit Date Essential hypertension December 22 10:43am Fatty liver December 23, 2023 10:43am Hypercholesterolemia December 23, 2023 10:43am Obstructive sleep apnea December 22, 024 10:43am Overweight (BMI 25.0-29.9) December 10:43am Pre-diabetes December 23, 2023 10:43am Maxillary sinusitis December 30, 2023 1:57pm Pre-diabetes March 04, 2024 1 0:23am Screening for colon cancer March 04, 2024 10:23am Speech abnormality March 04, 2024 1 0:23am Chief Complaint Admit Date Wellness March 04, 2024 1 0:23am Cat bite April 13, 2024 9:32 am Reason for Visit Admit Date Anxiety March 04, 2024 1 0:23am Atrial fibrillation March 04, 2024 1 0:23am Depression March 04, 2024 1 0:23am Essential hypertension March 04 10:23am Fatty liver March 04, 2024 1 0:23am Hypercholesterolemia March 04, 2024 10:23am Medicare annual wellness visit, subseque nt March 04, 2024 10:23am Obstructive sleep apnea March 04 10:23am Overweight (BMI 25.0-29.9) March 04, 2024 10:23am Pre-diabetes March 04, 2024 1 0:23am Screening for colon cancer March 04, 2024 10:23am Speech abnormality March 04, 2024 1 0:23am Essential hypertension March 09 10:54am Fatty liver March 09, 2024 1 0:54am Hypercholesterolemia March 09, 2024 10:54am Obstructive sleep apnea March 09 10:54am Pre-diabetes March 09, 2024 1 0:54am Cat bite of hand April 13, 2024 9:32 am Chief Complaint Admit Date Wellness March 04, 2024 1 0:23am Cat bite April 13, 2024 9:32 am 2 month May 04, 2024 10: 50am Chief Complaint Admit Date Wellness March 04, 2024 1 0:23am Cat bite April 13, 2024 9:32 am 2 month May 04, 2024 10: 50am positive cologuard May 12, 2024 8:06 am Reason for Visit Admit Date Anxiety March 04, 2024 1 0:23am Atrial fibrillation March 04, 2024 1 0:23am Depression March 04, 2024 1 0:23am Essential hypertension March 04 10:23am Fatty liver March 04, 2024 1 0:23am Hypercholesterolemia March 04, 2024 10:23am Medicare annual wellness visit, subseque nt March 04, 2024 10:23am Obstructive sleep apnea March 04 10:23am Overweight (BMI 25.0-29.9) March 04, 2024 10:23am Pre-diabetes March 04, 2024 1 0:23am Screening for colon cancer March 04, 2024 10:23am Speech abnormality March 04, 2024 1 0:23am Essential hypertension March 09 10:54am Fatty liver March 09, 2024 1 0:54am Hypercholesterolemia March 09, 2024 10:54am Obstructive sleep apnea March 09 10:54am Pre-diabetes March 09, 2024 1 0:54am Cat bite of hand April 13, 2024 9:32 am Essential hypertension May 04, 2024 10:50am Fatty liver May 04, 2024 10: 50am Hypercholesterolemia May 04, 2024 10 :50am Obstructive sleep apnea May 04, 2024 10:50am Pre-diabetes May 04, 2024 10: 50am Chief Complaint Admit Date positive cologuard May 12, 2024 8:06 am 8 week June 29, 2024 10:56 am + cologuard August 04, 2024 10:2 3am Reason for Visit Admit Date Essential hypertension June 29, 2024 10 :56am Fatty liver June 29, 2024 10:56 am Hypercholesterolemia June 29, 2024 10:5 6am Obstructive sleep apnea June 29, 2024 1 0:56am Overweight (BMI 25.0-29.9) June 29 10:56am Pre-diabetes June 29, 2024 10:56 am Chief Complaint Admit Date June 29, 2024 10:56 am + cologuard August 04, 2024 10:[address] f/u and Seca September 09, 2024 9:11 am Chief Complaint Admit Date June 29, 2024 10:56 am + cologuard August 04, 2024 10:[address] f/u and Seca September 09, 2024 9:11 am 6 month f/u, LVM 08/18+08/27September 10 9:00am Reason for Visit Admit Date Essential hypertension June 29, 2024 10 :56am Fatty liver June 29, 2024 10:56 am Hypercholesterolemia June 29, 2024 10:5 6am Obstructive sleep apnea June 29, 2024 1 0:56am Overweight (BMI 25.0-29.9) June 29 10:56am Pre-diabetes June 29, 2024 10:56 am Chronic kidney disease (CKD) stage G3a/A1, moderately decreased glomerular September 10, 2024 9:00am Chief Complaint Admit Date June 29, 2024 10:56 am + cologuard August 04, 2024 10:[address] f/u and Seca September 09, 2024 9:11 am 6 month f/u, LVM 08/18+08/27September 10 9:00am 2-3 month September 14, 2024 10: 59am Reason for Visit Admit Date Essential hypertension June 29, 2024 10 :56am Fatty liver June 29, 2024 10:56 am Hypercholesterolemia June 29, 2024 10:5 6am Obstructive sleep apnea June 29, 2024 1 0:56am Overweight (BMI 25.0-29.9) June 29 10:56am Pre-diabetes June 29, 2024 10:56 am Anxiety September 10, 2024 9:0 0am Atrial fibrillation September 10, 2024 9:0 0am Chronic kidney disease (CKD) stage G3a/A1, moderately decreased glomerular September 10, 2024 9:00am Depression September 10, 2024 9:0 0am Essential hypertension September 10, 2024 9:00am Hypercholesterolemia September 10, 2024 9: 00am Obstructive sleep apnea September 10, 2024 9:00am Overweight (BMI 25.0-29.9) September 10 9:00am Pre-diabetes September 10, 2024 9:0 0am Additional Source Comments INFORMATION SOURCE (unrecogn ized section and content) DATE CREATED AUTHOR 06/10/2018 [facility] DATE CREATED AUTHOR AUTHOR'S ORGANIZ ATION 09/12/2021 [facility] DATE CREATED AUTHOR AUTHOR'S ORGANIZ ATION 06/23/2022 [facility] DATE CREATED AUTHOR AUTHOR'S ORGANIZ ATION 04/23/2024 [facility] EPIC DATE CREATED AUTHOR AUTHOR'S ORGANIZ ATION 08/13/2024 [facility] DATE CREATED AUTHOR AUTHOR'S ORGANIZ ATION 09/06/2024 [facility] REASON FOR VISIT (unrecogniz ed section and content) Reason Comments Throat Problem Consult Reason Comments Sleep Apnea Care Teams (unrecognized sec tion and content) [...] Status: Inactive Member Role Status Dates Med Urbano MD Attending Provider Active S tart: March 04, 2023 End: March 04, 2023 NON STAFF Primary Care Provider Active Start: March 04, 2023 End: March 04, 2023 Team Status: Active Member Role Status Dates Sonia Baig APRN PERSONAL CONSULTANT-C Primary Care Provider Active Team Status: Inactive Member Role Status Dates Sonia Baig APRN PERSONAL CONSULTANT-C Primary Care Provider Active Start: August 26, 2023 End: August 26, 2023 Joaquín Maria MD Attending Provider Active Start: August 26, 2023 End: August 26, 2023 Team Status: Inactive Member Role Status Dates Sonia Baig APRN PERSONAL CONSULTANT-C Primary Care Provider, Attending Provider Active Start: August 28, 2023 End: August 28, 2023 Team Status: Inactive Member Role Status Dates Sonia Baig APRN PERSONAL CONSULTANT-C Primary Care Provider Active Start: October 112023 End: October 28, 2023 Joaquín Maria MD Attending Provider Active Start: October 28, 2023 End: October 28, 2023 Team Status: Inactive Member Role Status Dates Sonia Baig APRN PERSONAL CONSULTANT-C Primary Care Provider Active Start: December 222023 End: December 23, 2023 Joaquín Maria MD Attending Provider Active Start: December 23, 2023 End: December 23, 2023 Team Status: Inactive Member Role Status Dates Sonia Baig APRN PERSONAL CONSULTANT-C Primary Care Provider, Attending Provider Active Start: December 30, 2023 End: December 30, 2023 Team Status: Active Member Role Status Dates Sonia Baig APRN PERSONAL CONSULTANT-C Primary Care Provider Active Start: February Joaquín Maria MD Attending Provider Active Start: March 04, 2024 Team Status: Inactive Member Role Status Dates Sonia Baig APRN PERSONAL CONSULTANT-C Primary Care Provider, Attending Provider Active Start: March 04, 2024 End: March 04, 2024 Industrial Custodian Relationship Specialty Start Date End Date Sonia Baig NP [address] [place] [address] PCP - General Family Medicine 03/24/24 Industrial Custodian Relationship Specialty Start Date End Date Sonia Baig NP [address] [place] [address] PCP - General Family Medicine 03/24/24 Team Status: Inactive Member Role Status Dates Sonia Baig APRN PERSONAL CONSULTANT-C Primary Care Provider Active Start: February End: March 09, 2024 Joaquín Maria MD Attending Provider Active Start: March 09, 2024 End: March 09, 2024 Team Status: Inactive Member Role Status Dates Sonia Baig APRN PERSONAL CONSULTANT-C Primary Care Provider, Attending Provider Active Start: April 13, 2024 End: April 13, 2024 Industrial Custodian Relationship Specialty Start Date End Date Sonia Baig NP [address] [facility] [place] [address] PCP - General Family Medicine 03/24/24 Team Status: Inactive Member Role Status Dates Sonia Baig APRN PERSONAL CONSULTANT-C Primary Care Provider Active Start: May 04, 2024 End: May 04, 2024 Joaquín Maria MD Attending Provider Active Start: May 04, 2024 End: May 04, 2024 Team Status: Inactive Member Role Status Dates Sonia Baig APRN PERSONAL CONSULTANT-C Primary Care Provider Active Start: May 12, 2024 End: May 12, 2024 Viri Toscano MD Attending Provider Active Start: May 12, 2024 End: May 12, 2024 Team Status: Active Member Role Status Dates Sonia Baig APRN PERSONAL CONSULTANT-C Primary Care Provider Active Start: June 14, 2024 Sonia Baig APRN PERSONAL CONSULTANT-C Attending Provider Act joseph Start: June 14, 2024 Team Status: Active Member Role Status Dates Sonia Baig APRN PERSONAL CONSULTANT-C Primary Care Provider Active Start: June 23, 2024 Darius Veronica PERSONAL CONSULTANT-C Attending Provider Active S tart: June 23, 2024 Team Status: Inactive Member Role Status Dates Sonia Baig APRN PERSONAL CONSULTANT-C Primary Care Provider Active Start: June 29, 2024 End: June 29, 2024 Joaquín Maria MD Attending Provider Active Start: June 29, 2024 End: June 29, 2024 Team Status: Active Member Role Status Dates Sonia Baig APRN PERSONAL CONSULTANT-C Primary Care Provider Active Start: August 04, 2024 Viri Toscano MD Attending Provider Active Start: August 04, 2024 Viri Toscano MD Other Provider Active Start: Jul Team Status: Inactive Member Role Status Dates Sonia Baig APRN PERSONAL CONSULTANT-C Primary Care Provider Active Start: September 09, 2024 End: September 09, [address] Attending Provider Active S tart: September 09, 2024 End: September 09, 2024 Team Status: Inactive Member Role Status Dates Sonai Baig APRN PERSONAL CONSULTANT-C Primary Care Provider Active Start: September 10, 2024 End: September 10, 2024 Sonia Baig APRN PERSONAL CONSULTANTEvans Attending Provider Act joseph Start: September 10, 2024 End: September 10, 2024 Team Status: Inactive Member Role Status Dates Sonia Baig APRN PERSONAL CONSULTANT-Doug Primary Care Provider Active Start: September 14, 2024 End: September 14, 2024 Joaquín Maria MD Attending Provider Active Start: September 14, 2024 End: September 14, 2024 Goals (unrecognized section and content) Goals may [...] BE BASED ON THE PRIMARY CLINICAL RECORDS. [facility]. provides no warranty or guarantee of the accuracy or completeness of information in this document.
[2024-10-01 12:04] LABS: Alanine Aminotransferase 30 U/L (14-59); Albumin Globulin Ratio 0.8; Albumin Level 3.3 g/dL (3.4-5.0); Alkaline Phosphatase 111 U/L (46-116); Anion Gap 11.3; Aspartate Amino Transferase 26 U/L (15-37); Blood Urea Nitrogen 22.0 mg/dL (7.0-18.0); Calcium 9.1 mg/dL (8.5-10.1); Carbon Dioxide 29.1 mmol/L (21.0-32.0); Chloride 103 mmol/L (98-107); Estimated GFR (African America >60 (>=60 mL/min/1.73m^2); Estimated GFR (Non-African Ame >60 (>=60 mL/min/1.73m^2); Globulin 4.2 g/dL; Glucose 91 mg/dL (74-106); Potassium 4.4 mmol/L (3.5-5.1); Sodium 139 mmol/L (136-145); Total Protein 7.5 g/dL (6.4-8.2)
== END 2024-10-01 11:26 | disposition home or self-care (01) ==
LOC: LAB 11:29
PROVIDERS: PCP Nurse Practitioner Family; Visit Provider Nurse Practitioner Family
DX: N18.31 Chronic kidney disease, stage 3a (principal)
CPT/HCPCS: 36415; 80053

== ENCOUNTER 2024-10-07 13:18 | Outpatient (OUT) | payer MEDICARE, OTHER, SELFPAY ==
--- OUTSIDE RECORDS SUMMARY | 2024-10-07 13:26 | XMS_ITS | CCD ---
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 Name Role Phone HOUSE, SR TY P [...] Unavailable DO Ty Thomas Primary Care Provider [phone] MD Joaquín Maria Attending Provider [phone] MD Med Urbano Attending Provider NON STAFF Primary Care Provider UnavailMed Cunningham Unavailable Unavailable Primary Care Provider UnavailSonia Grady NP Primary Care Provider ECHO DAVILA Attending Unavailable DANIELLE WAITE Attending Unavailable Sonia Baig APRN Primary Care Provider Viri Toscano MD Attending Provider [phone] Sonia Baig APRN Attending Provider Annamaria NATURALIST-C, Darius C Attending Provider [phone] Joaquín Maria MD Attending Provider Dorcas MARTINEZ, [...] (20 sources) Amiodarone Drug Allergy 03-13-19 24 [facility] (20 sources) penicillAMINE Drug Allergy 03-13-19 24 Unknown, Rash [facility] (3 sources) Penicillins; Translations: [PENICILLINS] Drug allergy (disorder) 07-26-19 16 [facility] (1 source) Leucine Drug Allergy 04-18-19 17 [facility] (5 sources) Penicillins Drug Intolerance 08-28-19 17 [facility] (1 source) Amiodarone Drug Allergy 07-21-19 [facility] (1 source) penicillAMINE Drug Allergy 07-21-19 [facility] Medications Current Medications Medication Drug [...] Vitamin D Vitamin D3 250 M CG (53938 UT) as directed Orally Active clobetasol propionate [...] with drug therapy [facility] Farxiga 10 MG 1 tablet Orally Once a day Dapagliflozin Active 24 hr dilTIAZem hydrochloride 360 mg extended release oral capsule (20 sources) Calcium Channel Tomas Start: 06-17-2022 End: 03-24-2024 dilTIAZem CD (Cardizem CD) 360 MG 24 hr capsule 06/17/2022 03/24/2024 Discontinued (Therapy completed) take 1 capsule by [facility] every twenty-four hours dilTIAZem HCl ER Coated [...] a day Active Vitamin D3 250 MCG (74003 UT ) (7 sources) Vitamin D3 250 M CG (91077 UT) as directed Orally Active Completed/Discontinued Medications [...] March 04, 2024 12:09pm polyethylene glycol 3350 860486 mg / potassium chloride 2970 mg / sodium bicarbonate 6740 mg / sodium chloride 5860 mg / sodium sulfate 45749 mg powder for oral solution (8 sources) [...] 04-13-2024 Episodic Other aftercare (1 source) Other [facility] (current) drug therapy; Translations: [OTH CUSTODIAL CURRENT DRUG THERAPY] Onset: 03-28-2022 Episodic Other aftercare (1 source) senior care (current) use of anticoagulants; 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] Onset: 03-28-2022 Episodic Other [...] Range Facility Orders Onlyon 09-03-2024 Orders Only [id number] Penny Diane 1950 F Date Provider Department [place] 09/03/2024 [id number], HISTORICAL [facility] Marilin Olivo Family History Problem Relation Age of Onset Hypertension Mother Cancer Sister Family Status - Relation Status Age at Mother Father Sister Brother Alive Normal [facility] Basophils Auto (Bld) [#/Vol] on 06-23-2024 Basophils (Bld) [#/Vol] 0.0 10 3/uL 0.0-0.1 [facility] Basophils/100 WBC Auto (Bld) on 06-23-2024 Basophils/100 WBC (Bld) 0.6 % 0.2-2.0 [facility] Eosinophils/100 WBC Auto (Bl d)on 06-23-2024 Eosinophils/100 WBC (Bld) 3.8 % 0.9-7.0 [facility] Erythrocyte distribution wid th Auto (RBC) [Ratio]on 06-23-2024 Erythrocyte distribution width (RBC) [Ratio] 13.9 % 11.0-15.0 [facility] Estimated glomerular filtrat ion rate (GFR) non- Americanon 06-23-2024 GFR/1.73 sq M.predicted among non-blacks MDRD (S/P/Bld) [Vol rate/Area] 52 mL/min/{1.73_m2} Low >=60 mL/min/1.73m 2 [facility] Hematocrit Auto (Bld) [Volum e fraction]on 06-23-2024 Hematocrit (Bld) [Volume fraction] 43.9 % 36.0-48.0 [facility] Hemoglobin [Mass/volume] in Bloodon 06-23-2024 Hemoglobin (Bld) [Mass/Vol] 14.6 g/dL 12.0-16.0 [facility] Laboratory - Chemistry and C hemistry - challengeon 06-23-2024 Calcium [Mass/Vol] 9.3 mg/dL 8.5-10.1 [facility] Chloride [Moles/Vol] 106 mmol/L 98-107 [facility] CO2 [Moles/Vol] 29.0 mmol/L 21.0-32.0 [facility] Creatinine [Mass/Vol] 1.03 mg/dL High 0.55-1.02 [facility] GFR/1.73 sq M.predicted MDRD (S/P/Bld) [Vol rate/Area] mL/min/{1.73_m2} >=60 mL/min/1.73m 2 [facility] Glucose [Mass/Vol] 98 mg/dL 74-106 [facility] Potassium [Moles/Vol] 3.8 mmol/L 3.5-5.1 [facility] Sodium [Moles/Vol] 143 mmol/L 136-145 [facility] Urea nitrogen [Mass/Vol] 18.0 mg/dL 7.0-18.0 [facility] Urea nitrogen/Creatinine [Mass ratio] 17.5 mg/mg [facility] - Hematology and Cell countson 06-23-2024 Immature granulocytes/100 WBC (Bld) 0.2 % 0.0-0.5 [facility] Leukocytes [#/volume] correc kathie for nucleated erythrocytes in Blood by Automated counon 06-23-2024 WBC corrected for nucl RBC Auto (Bld) [#/Vol] 5.2 10 3/uL 4.0-11.0 [facility] Lymphocytes Auto (Bld) [#/Vo l]on 06-23-2024 Lymphocytes (Bld) [#/Vol] 1.5 10 3/uL 1.2-3.8 [facility] Lymphocytes/100 WBC Auto (Bl d)on 06-23-2024 Lymphocytes/100 WBC (Bld) 28.9 % 20.5-60.0 [facility] MCH Auto (RBC) [Entitic mass ]on 06-23-2024 MCH (RBC) [Entitic mass] 31.8 pg 26.7-34.0 [facility] MCHC Auto (RBC) [Mass/Vol]on 06-23-2024 MCHC (RBC) [Mass/Vol] 33.3 g/dL 29.9-35.2 [facility] MCV Auto (RBC) [Entitic vol] on 06-23-2024 MCV (RBC) [Entitic vol] 95.6 fL 81.0-99.0 [facility] Monocytes Auto (Bld) [#/Vol] on 06-23-2024 Monocytes (Bld) [#/Vol] 0.5 10 3/uL 0.3-0.8 [facility] Monocytes/100 WBC Auto (Bld) on 06-23-2024 Monocytes/100 WBC (Bld) 9.0 % 1.7-12.0 [facility] Neutrophils Auto (Bld) [#/Vo l]on 06-23-2024 Neutrophils (Bld) [#/Vol] 3.0 10 3/uL 1.4-6.5 [facility] Neutrophils/100 WBC Auto (Bl d)on 06-23-2024 Neutrophils/100 WBC (Bld) 57.5 % 43.0-75.0 [facility] No Panel Informationon 06-23 Eosinophils # (Auto) 0.2 10 3/uL 0.0-0.7 [facility] Immature Granulocyte # (Auto) 0.01 10 3/uL 0.00-0.03 [facility] Platelet mean volume Auto (B ld) [Entitic vol]on 06-23-2024 Platelet mean volume (Bld) [Entitic vol] 9.8 fL 9.5-13.5 [facility] Platelets Auto (Bld) [#/Vol] on 06-23-2024 Platelets (Bld) [#/Vol] 192 10 3/uL 150-450 [facility] RBC Auto (Bld) [#/Vol]on RBC (Bld) [#/Vol] 4.59 10 6/uL 4.20-5.40 [facility] Serum or plasma anion gap de terminationon 06-23-2024 Anion gap [Moles/Vol] 11.8 mmol/L [facility] Office Visiton 06-17-2024 Follow-up visit [id number] Penny Diane 1950 F Date Provider Department Center 06/17/2024 [id number], [facility] Family History Problem Relation Age of Onset Hypertension Mother Cancer Sister Family Status - Relation Status Age at Mother Father Sister Brother Alive Level of Service:79975 [place] OFFICE/OUTPATIENT ESTABLISHED MOD MDM 30 MIN Normal [facility] Cholesterol in LDL Calc [Mas s/Vol]on 06-14-2024 Cholesterol in LDL [Mass/Vol] 55.0 mg/dL [facility] Comment on above: <100 mg/dl [id number] 0-129 mg/dl NEAR OR ABOVE [id number] mg/dl BORDERLINE [id number] mg/dl HIGH>190 mg/dl VERY HIGH Cholesterol in VLDL Calc [Ma ss/Vol]on 06-14-2024 Cholesterol in VLDL [Mass/Vol] 14.0 mg/dL [facility] - Chemistry and C hemistry - challengeon 06-14-2024 Cholesterol [Mass/Vol] 135 mg/dL <=200 [facility] Cholesterol in HDL [Mass/Vol] 66 mg/dL High 40-60 [facility] Comment on above: > or =60 mg/dl - LOW CARDIOVASCULAR RISK<40 mg/dl - HIGH CARDIOVASCULAR RISK Triglyceride [Mass/Vol] 70 mg/dL <=150 [facility] Serum or plasma total choles terol/high density lipoprotein (HDL) cholesterol mass sheng 06-14-2024 Cholesterol.total/Ch olesterol in HDL [Mass ratio] 2.0 {ratio} [facility] Comment on above: 3.3 - 4.4 LOW RISK4. 4 - 7.1 AVERAGE RISK7.1 - 11.0 MODERATE RISK>11.0 [facility] Office Visiton 03-26-2024 Follow-up visit [id number] Penny Diane 1950 F Date Provider Department Center 03/26/2024 [id number] MARY Family History Problem Relation Age of Onset Hypertension Mother Family Status - Relation Status Age at Mother Level of Service:28883 [place] OFFICE/OUTPATIENT ESTABLISHED MOD MDM 30 MIN Normal [facility] Basophils Auto (Bld) [#/Vol] on 03-04-2024 Basophils (Bld) [#/Vol] Automated basophil count 0.0-0.1 [facility] Basophils/100 WBC Auto (Bld) on 03-04-2024 Basophils/100 WBC (Bld) Automated basophil % 0.2-2.0 [facility] Cholesterol in LDL Calc [Mas s/Vol]on 03-04-2024 Cholesterol in LDL [Mass/Vol] Cholesterol in LDL [Mass/volume] in Serum or Plasma by calculation [facility] Comment on above: <100 mg/dl [id number] 0-129 mg/dl NEAR OR ABOVE [id number] mg/dl BORDERLINE [id number] mg/dl HIGH>190 mg/dl VERY HIGH Cholesterol in VLDL Calc [Ma ss/Vol]on 03-04-2024 Cholesterol in VLDL [Mass/Vol] Cholesterol in VLDL [Mass/volume] in Serum or Plasma by calculation [facility] Eosinophils/100 WBC Auto (Bl d)on 03-04-2024 Eosinophils/100 WBC (Bld) Automated eosinophil % 0.9-7.0 [facility] Erythrocyte distribution wid th Auto (RBC) [Ratio]on 03-04-2024 Erythrocyte distribution width (RBC) [Ratio] Erythrocyte distribution width [Ratio] by Automated count 11.0-15.0 [facility] Estimated glomerular filtrat ion rate (GFR) non- Americanon 03-04-2024 GFR/1.73 sq M.predicted among non-blacks MDRD (S/P/Bld) [Vol rate/Area] Estimated glomerular filtration rate (GFR) non- Low >=60 mL/min/1.73m 2 [facility] Globulin Calc (S) [Mass/Vol] on 03-04-2024 Globulin (S) [Mass/Vol] Serum globulin measurement by calculation (mass/volume) [facility] Glucose mean value [Mass/vol ume] in Blood Estimated from glycated hemoglobinon 03-04-2024 Average glucose Estimated from glycated hemoglobin (Bld) [Mass/Vol] Glucose mean value [Mass/volume] in Blood Estimated from glycated hemoglobin [facility] Hematocrit Auto (Bld) [Volum e fraction]on 03-04-2024 Hematocrit (Bld) [Volume fraction] Hematocrit [Volume Fraction] of Blood by Automated count High 36.0-48.0 [facility] Hemoglobin A1c percentageon 03-04-2024 HbA1c (Bld) [Mass fraction] Hemoglobin A1c percentage 4.5-6.2 [facility] Comment on above: ADA RECOMMENDED LIMI T 4.0 - 6.0ADA THERAPEUTIC TARGET < 7.0ACTION SUGGESTED> 7.0 Hemoglobin [Mass/volume] in Bloodon 03-04-2024 Hemoglobin (Bld) [Mass/Vol] Hemoglobin [Mass/volume] in Blood 12.0-16.0 [facility] - Chemistry and C hemistry - challengeon 03-04-2024 Albumin [Mass/Vol] 3.3 g/dL Low 3.4-5.0 [facility] ALP [Catalytic activity/Vol] 111 U/L 46-116 [facility] ALT [Catalytic activity/Vol] 30 U/L 14-59 [facility] AST [Catalytic activity/Vol] 21 U/L 15-37 [facility] Bilirubin [Mass/Vol] 0.6 mg/dL 0.2-1.0 [facility] Calcium [Mass/Vol] 9.5 mg/dL 8.5-10.1 [facility] Chloride [Moles/Vol] 106 mmol/L 98-107 [facility] Cholesterol [Mass/Vol] 184 mg/dL <=200 [facility] Cholesterol in HDL [Mass/Vol] 64 mg/dL High 40-60 [facility] Comment on above: > or =60 mg/dl - LOW CARDIOVASCULAR RISK<40 mg/dl - HIGH CARDIOVASCULAR RISK CO2 [Moles/Vol] 31.6 mmol/L 21.0-32.0 [facility] Creatinine [Mass/Vol] 1.14 mg/dL High 0.55-1.02 [facility] GFR/1.73 sq M.predicted MDRD (S/P/Bld) [Vol rate/Area] 56 mL/min/{1.73_m2} Low >=60 mL/min/1.73m 2 [facility] Glucose [Mass/Vol] 86 mg/dL 74-106 [facility] Potassium [Moles/Vol] 4.3 mmol/L 3.5-5.1 [facility] Protein [Mass/Vol] 7.4 g/dL 6.4-8.2 [facility] Sodium [Moles/Vol] 144 mmol/L 136-145 [facility] Triglyceride [Mass/Vol] 81 mg/dL <=150 [facility] TSH Qn 1.626 m[IU]/L 0.358-3.740 [facility] Urea nitrogen [Mass/Vol] 15.0 mg/dL 7.0-18.0 [facility] Urea nitrogen/Creatinine [Mass ratio] 13.2 mg/mg [facility] Laboratory - Hematology and Cell countson 03-04-2024 Immature granulocytes/100 WBC (Bld) 0.2 % 0.0-0.5 [facility] Leukocytes [#/volume] correc kathie for nucleated erythrocytes in Blood by Automated counon 03-04-2024 WBC corrected for nucl RBC Auto (Bld) [#/Vol] Leukocytes [#/volume] corrected for nucleated erythrocytes in Blood by Automated coun 4.0-11.0 [facility] Lymphocytes Auto (Bld) [#/Vo l]on 03-04-2024 Lymphocytes (Bld) [#/Vol] Lymphocytes [#/volume] in Blood by Automated count 1.2-3.8 [facility] Lymphocytes/100 WBC Auto (Bl d)on 03-04-2024 Lymphocytes/100 WBC (Bld) Lymphocytes/100 leukocytes in Blood by Automated count 20.5-60.0 [facility] MCH Auto (RBC) [Entitic mass ]on 03-04-2024 MCH (RBC) [Entitic mass] MCH [Entitic mass] by Automated count 26.7-34.0 [facility] MCHC Auto (RBC) [Mass/Vol]on 03-04-2024 MCHC (RBC) [Mass/Vol] MCHC [Mass/volume] by Automated count 29.9-35.2 [facility] MCV Auto (RBC) [Entitic vol] on 03-04-2024 MCV (RBC) [Entitic vol] MCV [Entitic volume] by Automated count 81.0-99.0 [facility] Monocytes Auto (Bld) [#/Vol] on 03-04-2024 Monocytes (Bld) [#/Vol] Automated blood monocyte count 0.3-0.8 [facility] Monocytes/100 WBC Auto (Bld) on 03-04-2024 Monocytes/100 WBC (Bld) Automated monocyte % 1.7-12.0 [facility] Neutrophils Auto (Bld) [#/Vo l]on 03-04-2024 Neutrophils (Bld) [#/Vol] Neutrophils [#/volume] in Blood by Automated count 1.4-6.5 [facility] Neutrophils/100 WBC Auto (Bl d)on 03-04-2024 Neutrophils/100 WBC (Bld) Automated neutrophil % 43.0-75.0 [facility] No Panel Informationon 03-04 Eosinophils # (Auto) 0.2 10 3/uL 0.0-0.7 [facility] Immature Granulocyte # (Auto) 0.01 10 3/uL 0.00-0.03 [facility] Platelet mean volume Auto (B ld) [Entitic vol]on 03-04-2024 Platelet mean volume (Bld) [Entitic vol] Platelet mean volume [Entitic volume] in Blood by Automated count Low 9.5-13.5 [facility] Platelets Auto (Bld) [#/Vol] on 03-04-2024 Platelets (Bld) [#/Vol] Platelets [#/volume] in Blood by Automated count 150-450 [facility] RBC Auto (Bld) [#/Vol]on RBC (Bld) [#/Vol] Erythrocytes [#/volume] in Blood by Automated count 4.20-5.40 [facility] Serum or plasma albumin/glob ulin mass ratioon 03-04-2024 Albumin/Globulin [Mass ratio] Serum or plasma albumin/globulin mass ratio [facility] Serum or plasma anion gap de terminationon 03-04-2024 Anion gap [Moles/Vol] Serum or plasma anion gap determination [facility] Serum or plasma total choles terol/high density lipoprotein (HDL) cholesterol mass sheng 03-04-2024 Cholesterol.total/Ch olesterol in HDL [Mass ratio] Serum or plasma total cholesterol/high density lipoprotein (HDL) cholesterol mass rat [facility] Comment on above: 3.3 - 4.4 LOW RISK4. 4 - 7.1 AVERAGE RISK7.1 - 11.0 MODERATE RISK>11.0 HIGH RISK 36on 10-22-2023 36 Please let her know her stress test was negative. Continue with increased dose of Toprol and follow-up as planned in 6 months. Thanks! [facility] Telephoneon 10-22-2023 Telephone [id number] Penny Diane 1950 Provider Department Center 10/22/2023 JACI LAMAS [facility] CARD [facility]. Family History Problem Relation Age of Onset Hypertension Mother Family Status - Relation Status Age at Mother [facility] 37on 09-30-2023 37 *We will proceed with [...] *Continue all other medications as prescribed. Normal [facility] Office Visiton 09-30-2023 Follow-up visit [id number] Penny Diane 1950 F Date Provider Department Center 09/30/2023 JACI LAMAS CARD [facility] Family History Problem Relation Age of Onset Hypertension Mother Family Status - Relation Status Age at Mother Level of Service:62197 [place] OFFICE/OUTPATIENT ESTABLISHED MOD MDM 30 MIN Reason for Visit and Comments: Atrial Fibrillation [80] Hypertension [733514] NSVT [Other] Normal [facility] A1C HEMOGLOBINon 08-06-2022 HbA1c (Bld) [Mass fraction] 5.4 % [employer] Other HbA1c (Bld) [Mass fraction]o n 08-06-2022 A1C HEMOGLOBIN [facility] [employer] Other PROF CHEM 8 (BAS METB)on Anion gap [Moles/Vol] 11.7 mmol/L Normal [facility] Comment on above: Performed By: #### B MP #### [facility] [address] [address] [address] Baldemar Rodriguez Calcium [Mass/Vol] 9.3 mg/dL Normal 8.5-10.1 [facility] Comment on above: Performed By: #### B MP #### [facility] [address] [address] [address] Baldemar Rodriguez Chloride [Moles/Vol] 106 mmol/L Normal 98-107 [facility] Comment on above: Performed By: #### B MP #### [facility] [address] [address] [address] Baldemar Rodriguez CO2 [Moles/Vol] 31.2 mmol/L Normal 21.0-32.0 [facility] Comment on above: Performed By: #### B MP #### [facility] [address] [address] [address] Baldemar Rodriguez Creatinine [Mass/Vol] 0.92 mg/dL Normal 0.55-1.02 [facility] Comment on above: Performed By: #### B MP #### [facility] [address] [address] [address] Baldemar Rodriguez EGFR-AF SWAZI >60 Normal >=60 [facility] Comment on above: Performed By: #### B MP #### [facility] [address] [address] [address] Baldemar Rodriguez EGFR-NON AF SWAZI =60 Normal >=60 [facility] Comment on above: Performed By: #### B MP #### [facility] [address] [address] [address] Baldemar Rodriguez Glucose [Mass/Vol] 96 mg/dL Normal 74-106 [facility] Comment on above: Performed By: #### B MP #### [facility] [address] [address] [address] Baldemar Rodriguez Potassium [Moles/Vol] 3.9 mmol/L Normal 3.5-5.1 [facility] Comment on above: Performed By: #### B MP #### [facility] [address] [place] [address] Dr. Baldemar Rodriguez Sodium [Moles/Vol] 145 mmol/L Normal 136-145 [facility] Comment on above: Performed By: #### B MP #### [facility] [address] [address] [address] Baldemar Rodriguez Urea nitrogen [Mass/Vol] 13.0 mg/dL Normal 7.0-18.0 [facility] Comment on above: Performed By: #### B MP #### [facility] [address] [place] [address] Dr. Baldemar Rodriguez Urea nitrogen/Creatinine [Mass ratio] 14.1 mg/mg Normal [facility] Comment on above: Performed By: #### B MP #### [facility] [address] [address] [address] Baldemar Rodriguez PROF CHEM 8 (BAS METB)on Anion gap [Moles/Vol] 8.8 mmol/L Normal [facility] Comment on above: Performed By: #### B MP #### [facility] [address] [address] [address] Baldemar Rodriguez Calcium [Mass/Vol] 9.5 mg/dL Normal 8.5-10.1 [facility] Comment on above: Performed By: #### B MP #### [facility] [address] [address] [address] Baldemar Rodriguez Chloride [Moles/Vol] 103 mmol/L Normal 98-107 [facility] Comment on above: Performed By: #### B MP #### [facility] [address] [address] [address] Baldemar Rodriguez CO2 [Moles/Vol] 32.5 mmol/L Critically high 21.0-32.0 [facility] Comment on above: Performed By: #### B MP #### [facility] [address] [address] [address] Baldemar Rodriguez Creatinine [Mass/Vol] 0.92 mg/dL Normal 0.55-1.02 [facility] Comment on above: Performed By: #### B MP #### [facility] [address] [place] [address] Dr. Baldemar Rodriguez EGFR-AF SWAZI >60 Normal >=60 [facility] Comment on above: Performed By: #### B MP #### [facility] [address] [address] [address] Baldemar Rodriguez EGFR-NON AF SWAZI =60 Normal >=60 [facility] Comment on above: Performed By: #### B MP #### [facility] [address] [place] [address] Dr. Baldemar Rodriguez Glucose [Mass/Vol] 79 mg/dL Normal 74-106 [facility] Comment on above: Performed By: #### B MP #### [facility] [address] [address] [address] Baldemar Rodriguez Potassium [Moles/Vol] 4.3 mmol/L Normal 3.5-5.1 [facility] Comment on above: Performed By: #### B MP #### [facility] [address] [address] [address] Baldemar Rodriguez Sodium [Moles/Vol] 140 mmol/L Normal 136-145 [facility] Comment on above: Performed By: #### B MP #### [facility] [address] [address] [address] Baldemar Rodriguez Urea nitrogen [Mass/Vol] 19.0 mg/dL Critically high 7.0-18.0 [facility] Comment on above: Performed By: #### B MP #### [facility] [address] [place] [address] Dr. Baldemar Rodriguez Urea nitrogen/Creatinine [Mass ratio] 20.7 mg/mg Normal [facility] Comment on above: Performed By: #### B MP #### [facility] [address] [place] [address] Dr. Baldemar Rodriguez CBC AUTO DIFFon 03-26-2022 BASO # 0.0 103/ul Normal 0.0-0.1 [facility] Comment on above: Performed By: #### B MP #### [facility] [address] [place] [address] Dr. Baldemar Rodriguez Basophils/100 WBC (Bld) 0.6 % Normal 0.2-2.0 [facility] Comment on above: Performed By: #### B MP #### [facility] [address] [place] [address] Dr. Baldemar Rodriguez EO # 0.3 103/ul Normal 0.0-0.7 [facility] Comment on above: Performed By: #### B MP #### [facility] [address] [place] [address] Dr. Baldemar Rodriguez Eosinophils/100 WBC (Bld) 4.7 % Normal 0.9-7.0 [facility] Comment on above: Performed By: #### B MP #### [facility] [address] [place] [address] Dr. Baldemar Rodriguez Erythrocyte distribution width (RBC) [Ratio] 14.7 % Normal 11.0-15.0 [facility] Comment on above: Performed By: #### B MP #### [facility] [address] [place] [address] Dr. Baldemar Rodriguez Hematocrit (Bld) [Volume fraction] 39.6 % Normal 36.0-48.0 [facility] Comment on above: Performed By: #### B MP #### [facility] [address] [place] [address] Dr. Baldemar Rodriguez Hemoglobin (Bld) [Mass/Vol] 12.8 g/dL Normal 12.0-16.0 [facility] Comment on above: Performed By: #### B MP #### [facility] [address] [place] [address] Dr. Baldemar Rodriguez IG # 0.02 10e3/ul Normal 0.00-0.03 [facility] Comment on above: Performed By: #### B MP #### [facility] [address] [place] [address] Dr. Baldemar Rodriguez IG % 0.3 % Normal 0.0-0.5 [facility] Comment on above: Performed By: #### B MP #### [facility] [address] [place] [address] Dr. Baldemar Rodriguez LYMPH # 2.3 103/ul Normal 1.2-3.8 [facility] Comment on above: Performed By: #### B MP #### [facility] [address] [place] [address] Dr. Baldemar Rodriguez Lymphocytes/100 WBC (Bld) 33.9 % Normal 20.5-60.0 [facility] Comment on above: Performed By: #### B MP #### [facility] [address] [place] [address] Dr. Baldemar Rodriguez MANUAL DIFF REQ NO Normal [facility] Comment on above: Performed By: #### B MP #### [facility] [address] [place] [address] Dr. Baldemar Rodriguez MCH (RBC) [Entitic mass] 30.0 pg Normal 26.7-34.0 [facility] Comment on above: Performed By: #### B MP #### [facility] [address] [place] [address] Dr. Baldemar Rodriguez MCHC (RBC) [Mass/Vol] 32.3 g/dL Normal 29.9-35.2 [facility] Comment on above: Performed By: #### B MP #### [facility] [address] [place] [address] Dr. Baldemar Rodriguez MCV (RBC) [Entitic vol] 92.7 fL Normal 81.0-99.0 [facility] Comment on above: Performed By: #### B MP #### [facility] [address] [place] [address] Dr. Baldemar Rodriguez MONO # 0.6 103/ul Normal 0.3-0.8 [facility] Comment on above: Performed By: #### B MP #### [facility] [address] [place] [address] Dr. Baldemar Rodriguez Monocytes/100 WBC (Bld) 8.7 % Normal 1.7-12.0 [facility] Comment on above: Performed By: #### B MP #### [facility] [address] [place] [address] Dr. Baldemar Rodriguez NEUT # 3.4 103/ul Normal 1.4-6.5 [facility] Comment on above: Performed By: #### B MP #### [facility] [address] [place] [address] Dr. Baldemar Rodriguez Neutrophils/100 WBC (Bld) 51.8 % Normal 43.0-75.0 [facility] Comment on above: Performed By: #### B MP #### [facility] [address] [place] [address] Dr. Baldemar Rodriguez Platelet mean volume (Bld) [Entitic vol] 9.6 fL Normal 9.5-13.5 [facility] Comment on above: Performed By: #### B MP #### [facility] [address] [place] [address] Dr. Baldemar Rodriguez PLT 233 103/ul Normal 150-450 [facility] Comment on above: Performed By: #### B MP #### [facility] [address] [place] [address] Dr. Baldemar Rodriguez RBC 4.27 106/ul Normal 4.20-5.40 [facility] Comment on above: Performed By: #### B MP #### [facility] [address] [place] [address] Dr. Baldemar Rodriguez WBC 6.6 103/ul Normal 4.0-11.0 [facility] Comment on above: Performed By: #### B MP #### [facility] [address] [address] [address] Baldemar Rodriguez PROF CHEM 8 (BAS METB)on Anion gap [Moles/Vol] 9.2 mmol/L Normal [facility] Comment on above: Performed By: #### B MP #### [facility] [address] [address] [address] Baldemar Rodriguez Calcium [Mass/Vol] 9.2 mg/dL Normal 8.5-10.1 [facility] Comment on above: Performed By: #### B MP #### [facility] [address] [place] [address] Dr. Baldemar Rodriguez Chloride [Moles/Vol] 102 mmol/L Normal 98-107 [facility] Comment on above: Performed By: #### B MP #### [facility] [address] [place] [address] Dr. Baldemar Rodriguez CO2 [Moles/Vol] 35.8 mmol/L Critically high 21.0-32.0 [facility] Comment on above: Performed By: #### B MP #### [facility] [address] [place] [address] Dr. Baldemar Rodriguez Creatinine [Mass/Vol] 0.91 mg/dL Normal 0.55-1.02 [facility] Comment on above: Performed By: #### B MP #### [facility] [address] [place] [address] Dr. Baldemar Rodriguez EGFR-AF SWAZI >60 Normal >=60 [facility] Comment on above: Performed By: #### B MP #### [facility] [address] [address] [address] Baldemar Rodriguez EGFR-NON AF SWAZI >60 Normal >=60 [facility] Comment on above: Performed By: #### B MP #### [facility] [address] [place] [address] Dr. Baldemar Rodriguez Glucose [Mass/Vol] 93 mg/dL Normal 74-106 [facility] Comment on above: Performed By: #### B MP #### [facility] [address] [address] [address] Baldemar Rodriguez Potassium [Moles/Vol] 3.0 mmol/L Critically low 3.5-5.1 [facility] Comment on above: Performed By: #### B MP #### [facility] [address] [place] [address] Dr. Baldemar Rodriguez Sodium [Moles/Vol] 144 mmol/L Normal 136-145 [facility] Comment on above: Performed By: #### B MP #### [facility] [address] [place] [address] Dr. Baldemar Rodriguez Urea nitrogen [Mass/Vol] 19.0 mg/dL Critically high 7.0-18.0 [facility] Comment on above: Performed By: #### B MP #### [facility] [address] [place] [address] Dr. Baldemar Rodriguez Urea nitrogen/Creatinine [Mass ratio] 20.9 mg/mg Normal [facility] Comment on above: Performed By: #### B MP #### [facility] [address] [place] [address] Dr. Baldemar Rodriguez CBC AUTO DIFFon 03-25-2022 BASO # 0.0 103/ul Normal 0.0-0.1 [facility] Comment on above: Performed By: #### B MP #### [facility] [address] [place] [address] Dr. Baldemar Rodriguez Basophils/100 WBC (Bld) 0.5 % Normal 0.2-2.0 [facility] Comment on above: Performed By: #### B MP #### [facility] [address] [place] [address] Dr. Baldemar Rodriguez EO # 0.3 103/ul Normal 0.0-0.7 [facility] Comment on above: Performed By: #### B MP #### [facility] [address] [place] [address] Dr. Baldemar Rodriguez Eosinophils/100 WBC (Bld) 3.2 % Normal 0.9-7.0 [facility] Comment on above: Performed By: #### B MP #### [facility] [address] [place] [address] Dr. Baldemar Rodriguez Erythrocyte distribution width (RBC) [Ratio] 14.7 % Normal 11.0-15.0 [facility] Comment on above: Performed By: #### B MP #### [facility] [address] [place] [address] Dr. Baldemar Rodriguez Hematocrit (Bld) [Volume fraction] 40.8 % Normal 36.0-48.0 [facility] Comment on above: Performed By: #### B MP #### [facility] [address] [place] [address] Dr. Baldemar Rodriguez Hemoglobin (Bld) [Mass/Vol] 13.4 g/dL Normal 12.0-16.0 [facility] Comment on above: Performed By: #### B MP #### [facility] [address] [place] [address] Dr. Baldemar Rodriguez IG # 0.02 10e3/ul Normal 0.00-0.03 [facility] Comment on above: Performed By: #### B MP #### [facility] [address] [place] [address] Dr. Baldemar Rodriguez IG % 0.2 % Normal 0.0-0.5 [facility] Comment on above: Performed By: #### B MP #### [facility] [address] [place] [address] Dr. Baldemar Rodriguez LYMPH # 2.0 103/ul Normal 1.2-3.8 [facility] Comment on above: Performed By: #### B MP #### [facility] [address] [place] [address] Dr. Baldemar Rodriguez Lymphocytes/100 WBC (Bld) 23.3 % Normal 20.5-60.0 [facility] Comment on above: Performed By: #### B MP #### [facility] [address] [place] [address] Dr. Baldemar Rodriguez MANUAL DIFF REQ NO Normal [facility] Comment on above: Performed By: #### B MP #### [facility] [address] [address] [address] Baldemar Rodriguez MCH (RBC) [Entitic mass] 30.3 pg Normal 26.7-34.0 [facility] Comment on above: Performed By: #### B MP #### [facility] [address] [place] [address] Dr. Baldemar Rodriguez MCHC (RBC) [Mass/Vol] 32.8 g/dL Normal 29.9-35.2 [facility] Comment on above: Performed By: #### B MP #### [facility] [address] [place] [address] Dr. Baldemar Rodriguez MCV (RBC) [Entitic vol] 92.3 fL Normal 81.0-99.0 [facility] Comment on above: Performed By: #### B MP #### [facility] [address] [place] [address] Dr. Baldemar Rodriguez MONO # 0.6 103/ul Normal 0.3-0.8 [facility] Comment on above: Performed By: #### B MP #### [facility] [address] [place] [address] Dr. Baldemar Rodriguez Monocytes/100 WBC (Bld) 7.5 % Normal 1.7-12.0 [facility] Comment on above: Performed By: #### B MP #### [facility] [address] [place] [address] Dr. Baldemar Rodriguez NEUT # 5.5 103/ul Normal 1.4-6.5 [facility] Comment on above: Performed By: #### B MP #### [facility] [address] [place] [address] Dr. Baldemar Rodriguez Neutrophils/100 WBC (Bld) 65.3 % Normal 43.0-75.0 [facility] Comment on above: Performed By: #### B MP #### [facility] [address] [place] [address] Dr. Baldemar Rodriguez Platelet mean volume (Bld) [Entitic vol] 9.4 fL Critically low 9.5-13.5 [facility] Comment on above: Performed By: #### B MP #### [facility] [address] [place] [address] Dr. Baldemar Rodriguez PLT 258 103/ul Normal 150-450 [facility] Comment on above: Performed By: #### B MP #### [facility] [address] [place] [address] Dr. Baldemar Rodriguez RBC 4.42 106/ul Normal 4.20-5.40 [facility] Comment on above: Performed By: #### B MP #### [facility] [address] [place] [address] Dr. Baldemar Rodriguez WBC 8.4 103/ul Normal 4.0-11.0 [facility] Comment on above: Performed By: #### B MP #### [facility] [address] [place] [address] Dr. Baldemar Rodriguez POTASSIUMon 03-25-2022 Potassium [Moles/Vol] 2.7 mmol/L Critically low 3.5-5.1 [facility] Comment on above: Performed By: #### B MP #### [facility] [address] [place] [address] Dr. Baldemar Rodriguez PROF CHEM 8 (BAS METB)on Anion gap [Moles/Vol] 9.8 mmol/L Normal [facility] Comment on above: Performed By: #### B MP #### [facility] [address] [place] [address] Dr. Baldemar Rodriguez Calcium [Mass/Vol] 9.0 mg/dL Normal 8.5-10.1 [facility] Comment on above: Performed By: #### B MP #### [facility] [address] [place] [address] Dr. Baldemar Rodriguez Chloride [Moles/Vol] 100 mmol/L Normal 98-107 [facility] Comment on above: Performed By: #### B MP #### [facility] [address] [place] [address] Dr. Baldemar Rodriguez CO2 [Moles/Vol] 35.8 mmol/L Critically high 21.0-32.0 [facility] Comment on above: Performed By: #### B MP #### [facility] [address] [address] [address] Baldemar Rodriguez Creatinine [Mass/Vol] 0.85 mg/dL Normal 0.55-1.02 [facility] Comment on above: Performed By: #### B MP #### [facility] [address] [address] [address] Baldemar Rodriguez EGFR-AF SWAZI >60 Normal >=60 [facility] Comment on above: Performed By: #### B MP #### [facility] [address] [address] [address] Baldemar Rodriguez EGFR-NON AF SWAZI >60 Normal >=60 [facility] Comment on above: Performed By: #### B MP #### [facility] [address] [address] [address] Baldemar Rodriguez Glucose [Mass/Vol] 100 mg/dL Normal 74-106 [facility] Comment on above: Performed By: #### B MP #### [facility] [address] [address] [address] Baldemar Rodriguez Potassium [Moles/Vol] 2.5 mmol/L Critically low 3.5-5.1 [facility] Comment on above: Performed By: #### B MP #### [facility] [address] [address] [address] Baldemar Rodriguez Sodium [Moles/Vol] 142 mmol/L Normal 136-145 [facility] Comment on above: Performed By: #### B MP #### [facility] [address] [address] [address] Baldemar Rodriguez Urea nitrogen [Mass/Vol] 15.0 mg/dL Normal 7.0-18.0 [facility] Comment on above: Performed By: #### B MP #### [facility] [address] [place] [address] Dr. Baldemar Rodriguez Urea nitrogen/Creatinine [Mass ratio] 17.6 mg/mg Normal [facility] Comment on above: Performed By: #### B MP #### [facility] [address] [place] [address] Dr. Baldemar Rodriguez CBC AUTO DIFFon 03-24-2022 BASO # 0.0 103/ul Normal 0.0-0.1 [facility] Comment on above: Performed By: #### C MP, CMADM, BNP #### [facility] [address] [place] [address] Dr. Baldemar Rodriguez Basophils/100 WBC (Bld) 0.4 % Normal 0.2-2.0 [facility] Comment on above: Performed By: #### C MP, CMADM, BNP #### [facility] [address] [place] [address] Dr. Baldemar Rodriguez EO # 0.1 103/ul Normal 0.0-0.7 [facility] Comment on above: Performed By: #### C MP, CMADM, BNP #### [facility] [address] [place] [address] Dr. Baldemar Rodriguez Eosinophils/100 WBC (Bld) 1.2 % Normal 0.9-7.0 [facility] Comment on above: Performed By: #### C MP, CMADM, BNP #### [facility] [address] [place] [address] Dr. Baldemar Rodriguez Erythrocyte distribution width (RBC) [Ratio] 14.9 % Normal 11.0-15.0 [facility] Comment on above: Performed By: #### C MP, CMADM, BNP #### [facility] [address] [place] [address] Dr. Baldemar Rodriguez Hematocrit (Bld) [Volume fraction] 36.3 % Normal 36.0-48.0 [facility] Comment on above: Performed By: #### C MP, CMADM, BNP #### [facility] [address] [place] [address] Dr. Baldemar Rodriguez Hemoglobin (Bld) [Mass/Vol] 11.9 g/dL Critically low 12.0-16.0 [facility] Comment on above: Performed By: #### C MP, CMADM, BNP #### [facility] [address] [place] [address] Dr. Baldemar Rodriguez IG # 0.04 10e3/ul Critically high 0.00-0.03 [facility] Comment on above: Performed By: #### C MP, CMADM, BNP #### [facility] [address] [address] [address] Baldemar Rodriguez IG % 0.4 % Normal 0.0-0.5 [facility] Comment on above: Performed By: #### C MP, CMADM, BNP #### [facility] [address] [place] [address] Dr. Baldemar Rodriguez LYMPH # 2.5 103/ul Normal 1.2-3.8 [facility] Comment on above: Performed By: #### C MP, CMADM, BNP #### [facility] [address] [place] [address] Dr. Baldemar Rodriguez Lymphocytes/100 WBC (Bld) 22.3 % Normal 20.5-60.0 [facility] Comment on above: Performed By: #### C MP, CMADM, BNP #### [facility] [address] [place] [address] Dr. Baldemar Rodriguez MANUAL DIFF REQ NO Normal [facility] Comment on above: Performed By: #### C MP, CMADM, BNP #### [facility] [address] [place] [address] Dr. Baldemar Rodriguez MCH (RBC) [Entitic mass] 30.4 pg Normal 26.7-34.0 [facility] Comment on above: Performed By: #### C MP, CMADM, BNP #### [facility] [address] [place] [address] Dr. Baldemar Rodriguez MCHC (RBC) [Mass/Vol] 32.8 g/dL Normal 29.9-35.2 [facility] Comment on above: Performed By: #### C MP, CMADM, BNP #### [facility] [address] [place] [address] Dr. Baldemar Rodriguez MCV (RBC) [Entitic vol] 92.6 fL Normal 81.0-99.0 [facility] Comment on above: Performed By: #### C MP, CMADM, BNP #### [facility] [address] [place] [address] Dr. Baldemar Rodriguez MONO # 0.7 103/ul Normal 0.3-0.8 [facility] Comment on above: Performed By: #### C MP, CMADM, BNP #### [facility] [address] [place] [address] Dr. Baldemar Rodriguez Monocytes/100 WBC (Bld) 6.1 % Normal 1.7-12.0 [facility] Comment on above: Performed By: #### C MP, CMADM, BNP #### [facility] [address] [place] [address] Dr. Baldemar Rodriguez NEUT # 7.7 103/ul Critically high 1.4-6.5 [facility] Comment on above: Performed By: #### C MP, CMADM, BNP #### [facility] [address] [place] [address] Dr. Baldemar Rodriguez Neutrophils/100 WBC (Bld) 69.6 % Normal 43.0-75.0 [facility] Comment on above: Performed By: #### C MP, CMADM, BNP #### [facility] [address] [place] [address] Dr. Baldemar Rodriguez Platelet mean volume (Bld) [Entitic vol] 9.5 fL Normal 9.5-13.5 [facility] Comment on above: Performed By: #### C MP, CMADM, BNP #### [facility] [address] [place] [address] Dr. Baldemar Rodriguez PLT 237 103/ul Normal 150-450 [facility] Comment on above: Performed By: #### C MP, CMADM, BNP #### [facility] [address] [place] [address] Dr. Baldemar Rodriguez RBC 3.92 106/ul Critically low 4.20-5.40 [facility] Comment on above: Performed By: #### C MP, CMADM, BNP #### [facility] [address] [place] [address] Dr. Baldemar Rodriguez WBC 11.0 103/ul Normal 4.0-11.0 [facility] Comment on above: Performed By: #### C MP, CMADM, BNP #### [facility] [address] [address] [address] Baldemar Rodriguez PROF CHEM 8 (BAS METB)on Anion gap [Moles/Vol] 11.5 mmol/L Normal [facility] Comment on above: Performed By: #### B MP #### [facility] [address] [address] [address] Baldemar Rodriguez Calcium [Mass/Vol] 9.2 mg/dL Normal 8.5-10.1 [facility] Comment on above: Performed By: #### B MP #### [facility] [address] [address] [address] Baldemar Rodriguez Chloride [Moles/Vol] 106 mmol/L Normal 98-107 [facility] Comment on above: Performed By: #### B MP #### [facility] [address] [place] [address] Dr. Baldemar Rodriguez CO2 [Moles/Vol] 29.8 mmol/L Normal 21.0-32.0 [facility] Comment on above: Performed By: #### B MP #### [facility] [address] [address] [address] Baldemar Rodriguez Creatinine [Mass/Vol] 0.81 mg/dL Normal 0.55-1.02 [facility] Comment on above: Performed By: #### B MP #### [facility] [address] [address] [address] Baldemar Rodriguez EGFR-AF SWAZI >60 Normal >=60 [facility] Comment on above: Performed By: #### B MP #### [facility] [address] [address] [address] Baldemar Rodriguez EGFR-NON AF SWAZI >60 Normal >=60 [facility] Comment on above: Performed By: #### B MP #### [facility] [address] [address] [address] Baldemar Rodriguez Glucose [Mass/Vol] 102 mg/dL Normal 74-106 [facility] Comment on above: Performed By: #### B MP #### [facility] [address] [address] [address] Baldemar Rodriguez Potassium [Moles/Vol] 3.3 mmol/L Critically low 3.5-5.1 [facility] Comment on above: Performed By: #### B MP #### [facility] [address] [place] [address] Dr. Baldemar Rodriguez Sodium [Moles/Vol] 144 mmol/L Normal 136-145 [facility] Comment on above: Performed By: #### B MP #### [facility] [address] [place] [address] Dr. Baldemar Rodriguez Urea nitrogen [Mass/Vol] 17.0 mg/dL Normal 7.0-18.0 [facility] Comment on above: Performed By: #### B MP #### [facility] [address] [place] [address] Dr. Baldemar Rodriguez Urea nitrogen/Creatinine [Mass ratio] 21.0 mg/mg Normal [facility] Comment on above: Performed By: #### B MP #### [facility] [address] [place] [address] Dr. Baldemar Rodriguez CBC AUTO DIFFon 03-23-2022 BASO # 0.0 103/ul Normal 0.0-0.1 [facility] Comment on above: Performed By: #### C BC #### [facility] [address] [place] [address] Dr. Baldemar Rodriguez Basophils/100 WBC (Bld) 0.0 % Critically low 0.2-2.0 [facility] Comment on above: Performed By: #### C BC #### [facility] [address] [place] [address] Dr. Blademar Rodriguez EO # 0.0 103/ul Normal 0.0-0.7 [facility] Comment on above: Performed By: #### C BC #### [facility] [address] [place] [address] Dr. Baldemar Rodriguez Eosinophils/100 WBC (Bld) 0.0 % Critically low 0.9-7.0 [facility] Comment on above: Performed By: #### C BC #### [facility] [address] [place] [address] Dr. Baldemar Rodriguez Erythrocyte distribution width (RBC) [Ratio] 14.6 % Normal 11.0-15.0 [facility] Comment on above: Performed By: #### C BC #### [facility] [address] [place] [address] Dr. Baldemar Rodriguez Hematocrit (Bld) [Volume fraction] 34.1 % Critically low 36.0-48.0 [facility] Comment on above: Performed By: #### C BC #### [facility] [address] [place] [address] Dr. Baldemar Rodriguez Hemoglobin (Bld) [Mass/Vol] 11.0 g/dL Critically low 12.0-16.0 [facility] Comment on above: Performed By: #### C BC #### [facility] [address] [place] [address] Dr. Baldemar Rodriguez IG # 0.03 10e3/ul Normal 0.00-0.03 [facility] Comment on above: Performed By: #### C BC #### [facility] [address] [place] [address] Dr. Baldemar Rodriguez IG % 0.7 % Critically high 0.0-0.5 [facility] Comment on above: Performed By: #### C BC #### [facility] [address] [place] [address] Dr. Baldemar Rodriguez LYMPH # 0.9 103/ul Critically low 1.2-3.8 [facility] Comment on above: Performed By: #### C BC #### [facility] [address] [place] [address] Dr. Baldemar Rodriguez Lymphocytes/100 WBC (Bld) 20.7 % Normal 20.5-60.0 [facility] Comment on above: Performed By: #### C BC #### [facility] [address] [place] [address] Dr. Baldemar Rodriguez MANUAL DIFF REQ NO Normal [facility] Comment on above: Performed By: #### C BC #### [facility] [address] [place] [address] Dr. Baldemar Rodriguez MCH (RBC) [Entitic mass] 30.5 pg Normal 26.7-34.0 [facility] Comment on above: Performed By: #### C BC #### [facility] [address] [address] [address] Baldemar Rodriguez MCHC (RBC) [Mass/Vol] 32.3 g/dL Normal 29.9-35.2 [facility] Comment on above: Performed By: #### C BC #### [facility] [address] [place] [address] Dr. Baldemar Rodriguez MCV (RBC) [Entitic vol] 94.5 fL Normal 81.0-99.0 [facility] Comment on above: Performed By: #### C BC #### [facility] [address] [place] [address] Dr. Baldemar Rodriguez MONO # 0.2 103/ul Critically low 0.3-0.8 [facility] Comment on above: Performed By: #### C BC #### [facility] [address] [place] [address] Dr. Baldemar Rodriguez Monocytes/100 WBC (Bld) 4.5 % Normal 1.7-12.0 [facility] Comment on above: Performed By: #### C BC #### [facility] [address] [place] [address] Dr. Baldemar Rodriguez NEUT # 3.2 103/ul Normal 1.4-6.5 [facility] Comment on above: Performed By: #### C BC #### [facility] [address] [place] [address] Dr. Baldemar Rodriguez Neutrophils/100 WBC (Bld) 74.1 % Normal 43.0-75.0 [facility] Comment on above: Performed By: #### C BC #### [facility] [address] [place] [address] Dr. Baldemar Rodriguez Platelet mean volume (Bld) [Entitic vol] 9.7 fL Normal 9.5-13.5 [facility] Comment on above: Performed By: #### C BC #### [facility] [address] [place], [place] [address] Dr. Baldemar Rodriguez PLT 181 103/ul Normal 150-450 [facility] Comment on above: Performed By: #### C BC #### [facility] [id number] Baldemar Rodriguez RBC 3.61 106/ul Critically low 4.20-5.40 [facility] Comment on above: Performed By: #### C BC #### [facility] [address] [place], [place] [address] Dr. Baldemar Rodriguez WBC 4.3 103/ul Normal 4.0-11.0 [facility] Comment on above: Performed By: #### C BC #### [facility] [id number] Baldemar Rodriguez CTA CHEST WO W [...] MED TUTTLE Date: 2022-03-23 15:31 Normal [facility] GLYCOHEMOGLOBIN A1Con 2022 ADA RECOMMENDATION SEE BELOW Normal [facility] Comment on above: Result Comment: ADA RECOMMENDED LIMIT 4.0 - 6.0 ADA THERAPEUTIC TARGET < 7.0 ACTION SUGGESTED > 7.0 Performed By: #### B MP #### [facility] [address] [address] [address] Baldemar Rodriguez Glucose [Mass/Vol] 114 mg/dL Normal [facility] Comment on above: Performed By: #### B MP #### [facility] [address] [address] [address] Baldemar Rodriguez HbA1c (Bld) [Mass fraction] 5.6 % Normal 4.5-6.2 [facility] Comment on above: Performed By: #### B MP #### [facility] [address] [address] [address] Baldemar Rodriguez MAGNESIUMon 03-23-2022 Magnesium [Mass/Vol] 1.7 mg/dL Critically low 1.8-2.4 [facility] Comment on above: Performed By: #### B MP #### [facility] [address] [address] [address] Baldemar Rodriguez PROF CHEM 8 (BAS METB)on Anion gap [Moles/Vol] 11.7 mmol/L Normal [facility] Comment on above: Performed By: #### C MP, CMADM, BNP #### [facility] [address] [address] [address] Baldemar Rodriguez Calcium [Mass/Vol] 9.0 mg/dL Normal 8.5-10.1 [facility] Comment on above: Performed By: #### C MP, CMADM, BNP #### [facility] [address] [address] [address] Baldemar Rodriguez Chloride [Moles/Vol] 103 mmol/L Normal 98-107 [facility] Comment on above: Performed By: #### C MP, CMADM, BNP #### [facility] [address] [address] [address] Baldemar Rodriguez CO2 [Moles/Vol] 28.6 mmol/L Normal 21.0-32.0 [facility] Comment on above: Performed By: #### C MP, CMADM, BNP #### [facility] [address] [address] [address] Baldemar Rodriguez Creatinine [Mass/Vol] 0.83 mg/dL Normal 0.55-1.02 [facility] Comment on above: Performed By: #### C MP, CMADM, BNP #### [facility] [address] [place] [address] Dr. Baldemar Rodriguez EGFR-AF SWAZI >60 Normal >=60 [facility] Comment on above: Performed By: #### C MP, CMADM, BNP #### [facility] [address] [place] [address] Dr. Baldemar Rodriguez EGFR-NON AF SWAZI >60 Normal >=60 [facility] Comment on above: Performed By: #### C MP, CMADM, BNP #### [facility] [address] [place] [address] Dr. Baldemar Rodriguez Glucose [Mass/Vol] 115 mg/dL Critically high 74-106 [facility] Comment on above: Performed By: #### C MP, CMADM, BNP #### [facility] [address] [address] [address] Baldemar Rodriguez Potassium [Moles/Vol] 3.3 mmol/L Critically low 3.5-5.1 [facility] Comment on above: Performed By: #### C MP, CMADM, BNP #### [facility] [address] [place] [address] Dr. Baldemar Rodriguez Sodium [Moles/Vol] 140 mmol/L Normal 136-145 [facility] Comment on above: Performed By: #### C MP, CMADM, BNP #### [facility] [address] [place] [address] Dr. Baldemar Rodriguez Urea nitrogen [Mass/Vol] 14.0 mg/dL Normal 7.0-18.0 [facility] Comment on above: Performed By: #### C MP, CMADM, BNP #### [facility] [address] [address] [address] Baldemar Rodriguez Urea nitrogen/Creatinine [Mass ratio] 16.9 mg/mg Normal [facility] Comment on above: Performed By: #### C MP, CMADM, BNP #### [facility] [address] [address] [address] Baldemar Rodriguez TSHon 03-23-2022 TSH 0.588 uIU/mL Normal 0.358-3.740 [facility] Comment on above: Performed By: #### M G, TSH #### [facility] [address] [address] [address] Baldemar Rodriguez BNPon 03-22-2022 Natriuretic peptide B (Bld) [Mass/Vol] 2517.0 pg/mL Critically high <=900.0 [facility] Comment on above: Performed By: #### C MP, CMADM, BNP #### [facility] [address] [address] [address] Baldemar Rodriguez CARDIAC FREYA ADMITon 023 CK [Catalytic activity/Vol] 33 U/L Normal 26-192 [facility] Comment on above: Performed By: #### C MP, CMADM, BNP #### [facility] [address] [place] [address] Dr. Baldemar Rodriguez CK.MB [Mass/Vol] ng/mL Normal <=3.60 [facility] Comment on above: Performed By: #### C MP, CMADM, BNP #### [facility] [address] [place] [address] Dr. Baldemar Rodriguez HSTROP 11.9 pg/mL Normal 4.0-51.3 [facility] Comment on above: Result Comment: CUT- OFF POINTS HAVE BEEN ESTABLISHED BASED ON THE FOURTH UNIVERSAL DEFINITIONS OF MYOCARDIAL INFARCTION. THE UPPER REFERENCE LIMIT (URL) OF TROPONIN, DEFINED THE 99TH PERCENTILE OF cTnI DISTRIBUTION IN A REFERENCE POPULATION, HAS BEEN CONFIRMED THE DECISION THRESHOLD FOR NC DIAGNOSIS. Performed By: #### C MP, CMADM, BNP #### [facility] [address] [place] [address] Dr. Baldemar Rodriguez EMILY 29 ng/mL Normal 9-82 [facility] Comment on above: Performed By: #### C MP, CMADM, BNP #### [facility] [address] [place] [address] Dr. Baldemar Rodriguez CBC AUTO DIFFon 03-22-2022 BASO # 0.1 103/ul Normal 0.0-0.1 [facility] Comment on above: Performed By: #### C MP, CMADM, BNP #### [facility] [address] [place] [address] Dr. Baldemar Rodriguez Basophils/100 WBC (Bld) 0.8 % Normal 0.2-2.0 [facility] Comment on above: Performed By: #### C MP, CMADM, BNP #### [facility] [address] [place] [address] Dr. Baldemar Rodriguez EO # 0.1 103/ul Normal 0.0-0.7 [facility] Comment on above: Performed By: #### C MP, CMADM, BNP #### [facility] [address] [place] [address] Dr. Baldemar Rodriguez Eosinophils/100 WBC (Bld) 2.2 % Normal 0.9-7.0 [facility] Comment on above: Performed By: #### C MP, CMADM, BNP #### [facility] [address] [place] [address] Dr. Baldemar Rodriguez Erythrocyte distribution width (RBC) [Ratio] 15.1 % Critically high 11.0-15.0 [facility] Comment on above: Performed By: #### C MP, CMADM, BNP #### [facility] [address] [place] [address] Dr. Baldemar Rodriguez Hematocrit (Bld) [Volume fraction] 39.2 % Normal 36.0-48.0 [facility] Comment on above: Performed By: #### C MP, CMADM, BNP #### [facility] [address] [place] [address] Dr. Baldemar Rodriguez Hemoglobin (Bld) [Mass/Vol] 12.6 g/dL Normal 12.0-16.0 [facility] Comment on above: Performed By: #### C MP, CMADM, BNP #### [facility] [address] [place] [address] Dr. Baldemar Rodriguez IG # 0.02 10e3/ul Normal 0.00-0.03 [facility] Comment on above: Performed By: #### C MP, CMADM, BNP #### [facility] [address] [place] [address] Dr. Baldemar Rodriguez IG % 0.3 % Normal 0.0-0.5 [facility] Comment on above: Performed By: #### C MP, CMADM, BNP #### [facility] [address] [place] [address] Dr. Baldemar Rodriguez LYMPH # 1.6 103/ul Normal 1.2-3.8 [facility] Comment on above: Performed By: #### C MP, CMADM, BNP #### [facility] [address] [place] [address] Dr. Baldemar Rodriguez Lymphocytes/100 WBC (Bld) 27.3 % Normal 20.5-60.0 [facility] Comment on above: Performed By: #### C MP, CMADM, BNP #### [facility] [address] [place] [address] Dr. Baldemar Rodriguez MANUAL DIFF REQ NO Normal [facility] Comment on above: Performed By: #### C MP, CMADM, BNP #### [facility] [address] [place] [address] Dr. Baldemar Rodriguez MCH (RBC) [Entitic mass] 30.4 pg Normal 26.7-34.0 [facility] Comment on above: Performed By: #### C MP, CMADM, BNP #### [facility] [address] [place] [address] Dr. Baldemar Rodriguez MCHC (RBC) [Mass/Vol] 32.1 g/dL Normal 29.9-35.2 [facility] Comment on above: Performed By: #### C MP, CMADM, BNP #### [facility] [address] [place] [address] Dr. Baldemar Rodriguez MCV (RBC) [Entitic vol] 94.5 fL Normal 81.0-99.0 [facility] Comment on above: Performed By: #### C MP, CMADM, BNP #### [facility] [address] [place] [address] Dr. Baldemar Rodriguez MONO # 0.5 103/ul Normal 0.3-0.8 [facility] Comment on above: Performed By: #### C MP, CMADM, BNP #### [facility] [address] [place] [address] Dr. Baldemar Rodriguez Monocytes/100 WBC (Bld) 8.0 % Normal 1.7-12.0 [facility] Comment on above: Performed By: #### C MP, CMADM, BNP #### [facility] [address] [place] [address] Dr. Baldemar Rodriguez NEUT # 3.7 103/ul Normal 1.4-6.5 [facility] Comment on above: Performed By: #### C MP, CMADM, BNP #### [facility] [address] [place] [address] Dr. Baldemar Rodriguez Neutrophils/100 WBC (Bld) 61.4 % Normal 43.0-75.0 [facility] Comment on above: Performed By: #### C MP, CMADM, BNP #### [facility] [address] [place] [address] Dr. Baldemar oRdriguez Platelet mean volume (Bld) [Entitic vol] 9.4 fL Critically low 9.5-13.5 [facility] Comment on above: Performed By: #### C MP, CMADM, BNP #### [facility] [address] [place] [address] Dr. Baldemar Rodriguez PLT 226 103/ul Normal 150-450 [facility] Comment on above: Performed By: #### C MP, CMADM, BNP #### [facility] [address] [place] [address] Dr. Baldemar Rodriguez RBC 4.15 106/ul Critically low 4.20-5.40 [facility] Comment on above: Performed By: #### C LUIS A, CMADM, BNP #### [facility] [address] [address] [address] Baldemar Rodriguez WBC 6.0 103/ul Normal 4.0-11.0 [facility] Comment on above: Performed By: #### C LUIS A, CMADM, BNP #### [facility] [address] [address] [address] Baldemar Rodriguez [facility] 03-13 SARS-CoV-2 (COVID-19) RNA BOLIVAR+probe Ql (Unsp spec) Not detected Normal NOT DETECTED [facility] Comment on above: Result Comment: When [...] for this test is supported by the [place] of Health and Human Service's declaration that [...] #### C LUIS A, CMADM, BNP #### [facility] [address] [address] [address] Baldemar Rodriguez D-DIMERon 03-22-2022 D-DIMER 0.75 mg/L FEU Critically high <=0.59 [facility] Comment on above: Performed By: #### C LUIS A, CMADM, BNP #### [facility] [address] [address] [address] Baldemar Rodriguez D-DIMER COMMENTS SEE BELOW Normal [facility] Comment on above: Result Comment: Incr [...] By: #### C MP, CMADM, BNP #### [facility] [address] [address] [address] Baldemar Rodriguez ECHOCARDIO M/2D COMPLETEon 0 03-22-2022 ECHOCARDIO M/2D COMPLETE Patient: PENNY DIANE Exam Date: 03/22/2022 : 1950 Gender:F Ordering : SHAIKH Chu LOJA . Admission #: [id number] Family : DR TY THOMAS D.ORodriguez Order #: [id number] CLICK HERE TO VIEW EXAM ECHOCARDIOGRAM REPORT [...] Lofton M.D. on 03/22/2022 at 16:57 Normal [facility] PROF 14(COMP METB)on 023 Albumin [Mass/Vol] 3.4 g/dL Normal 3.4-5.0 [facility] Comment on above: Performed By: #### C MP, CMADM, BNP #### [facility] [address] [address] [address] Baldemar Rodriguez Albumin/Globulin [Mass ratio] 0.8 {ratio} Normal [facility] Comment on above: Performed By: #### C MP, CMADM, BNP #### [facility] [address] [address] [address] Baldemar Rodriguez ALP [Catalytic activity/Vol] 124 U/L Critically high 46-116 [facility] Comment on above: Performed By: #### C MP, CMADM, BNP #### [facility] [address] [address] [address] Baldemar Rodriguez ALT [Catalytic activity/Vol] 30 U/L Normal 14-59 [facility] Comment on above: Performed By: #### C MP, CMADM, BNP #### [facility] [address] [address] [address] Baldemar Rodriguez Anion gap [Moles/Vol] 12.0 mmol/L Normal [facility] Comment on above: Performed By: #### C MP, CMADM, BNP #### [facility] [address] [address] [address] Baldemar Rodriguez AST [Catalytic activity/Vol] 30 U/L Normal 15-37 [facility] Comment on above: Performed By: #### C MP, CMADM, BNP #### [facility] [address] [address] [address] Baldemar Rodriguez Bilirubin [Mass/Vol] 0.9 mg/dL Normal 0.2-1.0 [facility] Comment on above: Performed By: #### C MP, CMADM, BNP #### [facility] [address] [address] [address] Baldemar Rodriguez Calcium [Mass/Vol] 9.4 mg/dL Normal 8.5-10.1 [facility] Comment on above: Performed By: #### C MP, CMADM, BNP #### [facility] [address] [address] [address] Baldemar Rodriguez Chloride [Moles/Vol] 105 mmol/L Normal 98-107 [facility] Comment on above: Performed By: #### C MP, CMADM, BNP #### [facility] [address] [address] [address] Baldemar Rodriguez CO2 [Moles/Vol] 30.8 mmol/L Normal 21.0-32.0 [facility] Comment on above: Performed By: #### C MP, CMADM, BNP #### [facility] [address] [place] [address] Dr. Baldemar Rodriguez Creatinine [Mass/Vol] 0.79 mg/dL Normal 0.55-1.02 [facility] Comment on above: Performed By: #### C MP, CMADM, BNP #### [facility] [address] [place] [address] Dr. Baldemar Rodriguez EGFR-AF SWAZI >60 Normal >=60 [facility] Comment on above: Performed By: #### C MP, CMADM, BNP #### [facility] [address] [place] [address] Dr. Baldemar Rodriguez EGFR-NON AF SWAZI >60 Normal >=60 [facility] Comment on above: Performed By: #### C MP, CMADM, BNP #### [facility] [address] [address] [address] Baldemar Rodriguez Globulin (S) [Mass/Vol] 4.3 g/dL Normal [facility] Comment on above: Performed By: #### C MP, CMADM, BNP #### [facility] [address] [address] [address] Baldemar Rodriguez Glucose [Mass/Vol] 115 mg/dL Critically high 74-106 [facility] Comment on above: Performed By: #### C MP CMADM, BNP #### [facility] [address] [address] [address] Baldemar Rodriguez Potassium [Moles/Vol] 3.8 mmol/L Normal 3.5-5.1 [facility] Comment on above: Performed By: #### C MP CMADM, BNP #### [facility] [address] [address] [address] Baldemar Rodriguez Protein [Mass/Vol] 7.7 g/dL Normal 6.4-8.2 [facility] Comment on above: Performed By: #### C LUIS A CMADM, BNP #### [facility] [address] [place] [address] Dr. Baldemar Rodriguez Sodium [Moles/Vol] 144 mmol/L Normal 136-145 [facility] Comment on above: Performed By: #### C MP CMADM, BNP #### [facility] [address] [place] [address] Dr. Baldemar Rodriguez Urea nitrogen [Mass/Vol] 11.0 mg/dL Normal 7.0-18.0 [facility] Comment on above: Performed By: #### C LUIS A CMADM, BNP #### [facility] [address] [place] [address] Dr. Baldemar Rodriguez Urea nitrogen/Creatinine [Mass ratio] 13.9 mg/mg Normal [facility] Comment on above: Performed By: #### C LUIS A CMADM, BNP #### [facility] [address] [place] [address] Dr. Baldemar Rodriguez XR CHEST 1 Von [...] ANNITA BRAN Date: 2022-03-22 12:45 Normal [facility] XR CHEST 2 Von 01-22-2022 XR [...] by: HALIE NICK Date: 2022-01-22 15:48 Normal [facility] A1C HEMOGLOBINon 11-08-2021 HbA1c (Bld) [Mass fraction] 5.6 % [employer] Other HbA1c (Bld) [Mass fraction]o n 11-08-2021 A1C HEMOGLOBIN [facility] [employer] Other ECHOCARDIO M/2D COMPLETEon 0 08-15-2021 ECHOCARDIO M/2D COMPLETE Patient: PENNY DIANE Exam Date: 08/15/2021 : 1950 Gender:F Ordering : REGINO HERNADEZ Admission #: [id number] Family : DR TY THOMAS D.O. Order #: [id number] CLICK HERE TO VIEW EXAM ECHOCARDIOGRAM REPORT [...] M.D. on 08/15/2021 at 16:14 Normal [facility] BASIC METABOLIC PANELon Calcium [Mass/Vol] 9.9 mg/dL Normal 8.6-10.3 [facility] Comment on above: Performed By: #### 0 [id number] #### [facility] [address] [place] [address], [place] Chloride [Moles/Vol] 105 mmol/L Normal 98-107 [facility] Comment on above: Performed By: #### 0 [id number] #### [facility] [address] [place] [address], [place] CO2 [Moles/Vol] 30 mmol/L Normal 21-31 [facility] Comment on above: Performed By: #### 0 [id number] #### [facility] [address] [place] [address], [place] Creatinine [Mass/Vol] 1.25 mg/dL High 0.60-1.20 [facility] Comment on above: Performed By: #### 0 [id number] #### [facility] [address] [place] [address], [place] eGFR- 51 ml/min/1.73sq m Abnormal >60 [facility] Comment on above: Result Comment: Calc ulation may not be valid for patients over 70 years Performed By: #### 0 [id number] #### [facility] [address] [place] [address], [place] eGFR- non- 42 ml/min/1.73sq m Abnormal >60 [facility] Comment on above: Result Comment: Calc ulation may not be valid for patients over 70 years Performed By: #### 0 [id number] #### [facility] [address] [place] [address], [place] Glucose [Mass/Vol] 96 mg/dL Normal 70-100 [facility] Comment on above: Performed By: #### 0 [id number] #### [facility] [address] [place] [address], [place] Potassium [Moles/Vol] 3.9 mmol/L Normal 3.5-5.1 [facility] Comment on above: Performed By: #### [id number] #### [facility] [address] [place] [address], [facility] Sodium [Moles/Vol] 143 mmol/L Normal 136-145 [facility] Comment on above: Performed By: #### 0 1 #### [facility] [address] [place] [address], [facility] Urea nitrogen [Mass/Vol] 25 mg/dL Normal 7-25 [facility] Comment on above: Performed By: #### 0 70 #### [facility] [address] [place] [address], [facility] CBC COMPLETE BLOOD COUNTon 07-11-2021 Erythrocyte distribution width (RBC) [Ratio] 13.9 % Normal 11.5-15.0 [facility] Comment on above: Performed By: #### 5 08 #### [facility] [address] [place] [address], [facility] Hematocrit (Bld) [Volume fraction] 41.6 % Normal 36.0-45.0 [facility] Comment on above: Performed By: #### 5 0608 #### [facility] [address] [place] [address], [facility] Hemoglobin (Bld) [Mass/Vol] 13.5 g/dL Normal 12.0-15.0 [facility] Comment on above: Performed By: #### 5 0608 #### [facility] [address] [place] [address], [facility] MCH (RBC) [Entitic mass] 31.3 pg Normal 27.0-33.0 [facility] Comment on above: Performed By: #### 5 0608 #### [facility] [address] [place] [address], [facility] MCHC (RBC) [Mass/Vol] 32.5 g/dL Normal 32.0-35.0 [facility] Comment on above: Performed By: #### 5 0608 #### [facility] [address] [place] [address], [facility] MCV (RBC) [Entitic vol] 96.5 fL Normal 82.0-98.0 [facility] Comment on above: Performed By: #### 5 0608 #### [facility] [address] [place] [address], [facility] Nucleated RBC/100 WBC (Bld) [Ratio] 0 % Normal 0-0 [facility] Comment on above: Performed By: #### 5 0608 #### [facility] [address] [place] [address], [facility] PLAT CNT 219 10*3/uL Normal 150-400 [facility] Comment on above: Performed By: #### 5 0608 #### [facility] [address] [place] [address], [facility] RBC (Bld) [#/Vol] 4.31 10*6/uL Normal 3.80-5.00 [facility] Comment on above: Performed By: #### 5 0608 #### [facility] [address] [place] [address], [facility] WBC (Bld) [#/Vol] 5.29 10*3/uL Normal 4.00-10.60 [facility] Comment on above: Performed By: #### 5 0608 #### [facility] [address] Cardiovascular Lab Reporton 07-11-2021 Cardiovascular Lab Report [facility] Patient Name: Penny Diane [facility] MR #: [id number] Physician: Regino Hernadez MD Department of Service Date: 07/11/2021 Medicine Birthdate: 1950 Division of Room #: CC Cardiology Adult Cardiovascular Services [place] [address] Cardiovascular Laboratory Report ATRIAL FIBRILLATION ABLATION PROCEDURE [...] I decided to interrogate the pulmonary veins. [id number] Heparin bolus was given followed by additional [...] mild pericardial effusion vs fat and no ZE clot. Single transseptal access technique was used to cross to the left side. Following the first transeptal access, which was achieved via puncture of the thinner aspect of the septum using Garrte needle, Pentaray catheter was placed in the [...] and (more content not included)... Normal [facility] Covid-19 PCR ([facility])on 06-12 SARS-CoV-2 (COVID-19) RNA BOLIVAR+probe Ql (Unsp spec) Not detected Normal NOT DETECTED [facility] Comment on above: Result Comment: This test is not yet approved or cleared by the [place] FDA. When there are no FDA-approved or cleared tests available, and other criteria are met, FDA can make tests available under an emergency access mechanism called an Emergency Use Authorization (EUA). The EUA for this test is supported by the [place] of Health and Human Service's (HHS's) declaration [...] SARS-CoV-2. Performed By: #### C VDTBH #### [facility] [address] [place] [address] Dr. Baldemar Rodriguez HEMOGRAM AND PLATELon 2021 Hematocrit (Bld) [Volume fraction] 40.9 % Normal 36.0-48.0 [facility] Comment on above: Performed By: #### C MP, CMADM, BNP #### [facility] [address] [place] [address] Dr. Baldemar Rodriguez Hemoglobin (Bld) [Mass/Vol] 12.9 g/dL Normal 12.0-16.0 [facility] Comment on above: Performed By: #### C MP, CMADM, BNP #### [facility] [address] [place] [address] Dr. Baldemar Rodriguez MCH (RBC) [Entitic mass] 30.9 pg Normal 26.7-34.0 [facility] Comment on above: Performed By: #### C MP, CMADM, BNP #### [facility] [address] [place] [address] Dr. Baldemar Rodriguez MCHC (RBC) [Mass/Vol] 31.5 g/dL Normal 29.9-35.2 [facility] Comment on above: Performed By: #### C MP, CMADM, BNP #### [facility] [address] [place] [address] Dr. Baldemar Rodriguez MCV (RBC) [Entitic vol] 98.1 fL Normal 81.0-99.0 [facility] Comment on above: Performed By: #### C MP, CMADM, BNP #### [facility] [address] [place] [address] [address] Baldemar Rodriguez PLT 258 103/ul Normal 150-450 [facility] Comment on above: Performed By: #### C MP, CMADM, BNP #### [facility] [address] [place] [address] [address] Baldemar Rodriguez RBC 4.17 106/ul Critically low 4.20-5.40 [facility] Comment on above: Performed By: #### C MP, CMADM, BNP #### [facility] [address] [place] [address] [address] Baldemar Rodriguez WBC 5.0 103/ul Normal 4.0-11.0 [facility] Comment on above: Performed By: #### C MP, CMADM, BNP #### [facility] [address] [place] [address] [address] Baldemar Rodriguez BASIC METABOLIC PANELon 04-0 Calcium [Mass/Vol] 8.0 mg/dL Low 8.6-10.3 [facility] Comment on above: Order Comment: No: D o not add to previous draw Performed By: #### 0 0071 #### [facility] [address] [place] [address], [place] Chloride [Moles/Vol] 105 mmol/L Normal 98-107 [facility] Comment on above: Order Comment: No: D o not add to previous draw Performed By: #### 0 0071 #### [facility] [address] [place] [address], [place] CO2 [Moles/Vol] 26 mmol/L Normal 21-31 [facility] Comment on above: Order Comment: No: D o not add to previous draw Performed By: #### 0 0071 #### [facility] [address] [place] [address], [place] Creatinine [Mass/Vol] 0.77 mg/dL Normal 0.60-1.20 [facility] Comment on above: Order Comment: No: D o not add to previous draw Performed By: #### 0 0071 #### [facility] [address] [place] [address], [facility] GFR/1.73 sq M.predicted among blacks MDRD (S/P/Bld) [Vol rate/Area] mL/min/{1.73_m2} Normal >60 [facility] Comment on above: Order Comment: No: D o not add to previous draw Result Comment: Calc ulation may not be valid for patients over 70 years Performed By: #### 0 0071 #### [facility] [address] [place] [address], [facility] GFR/1.73 sq M.predicted among non-blacks MDRD (S/P/Bld) [Vol rate/Area] mL/min/{1.73_m2} Normal >60 [facility] Comment on above: Order Comment: No: D o not add to previous draw Result Comment: Calc ulation may not be valid for patients over 70 years Performed By: #### 0 0071 #### [facility] [address] [place] [address], [place] Glucose [Mass/Vol] 89 mg/dL Normal 70-100 [facility] Comment on above: Order Comment: No: D o not add to previous draw Performed By: #### 0 0071 #### [facility] [address] [place] [address], [place] Potassium [Moles/Vol] 2.8 mmol/L Low 3.5-5.1 [facility] Comment on above: Order Comment: No: D o not add to previous draw Performed By: #### 0 0071 #### [facility] [address] [place] [address], [place] Sodium [Moles/Vol] 140 mmol/L Normal 136-145 [facility] Comment on above: Order Comment: No: D o not add to previous draw Performed By: #### 0 0071 #### [facility] [address] [facility] [place] [address], [facility] Urea nitrogen [Mass/Vol] 11 mg/dL Normal 7-25 [facility] Comment on above: Order Comment: No: D o not add to previous draw Performed By: #### 0 0071 #### [facility] [address] [place] [address], [facility] CBC W/DIFFon 05-18-2021 ABS IMM GRANS 0.0 10*3/uL Normal 0.0-0.2 [facility] Comment on above: Order Comment: No: D o not add to previous draw Performed By: #### 5 0103 #### [facility] [address] [place] [address], [facility] ABS NEUTROPHILS 2.6 10*3/uL Normal 1.6-7.6 [facility] Comment on above: Order Comment: No: D o not add to previous draw Performed By: #### 5 0103 #### [facility] [address] [place] [address], [facility] Basophils (Bld) [#/Vol] 0.0 10*3/uL Normal 0.0-0.2 [facility] Comment on above: Order Comment: No: D o not add to previous draw Performed By: #### 5 0103 #### [facility] [address] [place] [address], [facility] Basophils/100 WBC (Bld) 0.6 % Normal 0.0-1.0 [facility] Comment on above: Order Comment: No: D o not add to previous draw Performed By: #### 5 0103 #### [facility] [address] [place] [address], [facility] Eosinophils (Bld) [#/Vol] 0.1 10*3/uL Normal 0.0-0.5 [facility] Comment on above: Order Comment: No: D o not add to previous draw Performed By: #### 5 0103 #### [facility] [address] [place] [address], [facility] Eosinophils/100 WBC (Bld) 2.9 % Normal 0.0-6.0 [facility] Comment on above: Order Comment: No: D o not add to previous draw Performed By: #### 5 0103 #### [facility] [address] [place] [address], [facility] Erythrocyte distribution width (RBC) [Ratio] 12.9 % Normal 11.5-15.0 [facility] Comment on above: Order Comment: No: D o not add to previous draw Performed By: #### 5 0103 #### [facility] [address] [place] [address], [facility] Hematocrit (Bld) [Volume fraction] 33.0 % Low 36.0-45.0 [facility] Comment on above: Order Comment: No: D o not add to previous draw Performed By: #### 5 0103 #### [facility] [address] [place] [address], [facility] Hemoglobin (Bld) [Mass/Vol] 10.7 g/dL Low 12.0-15.0 [facility] Comment on above: Order Comment: No: D o not add to previous draw Performed By: #### 5 0103 #### [facility] [address] [place] [address], [facility] IMMATURE GRANS 0.2 % Normal 0.0-1.0 [facility] Comment on above: Order Comment: No: D o not add to previous draw Performed By: #### 5 0103 #### [facility] [address] [place] [address], [facility] Lymphocytes (Bld) [#/Vol] 1.5 10*3/uL Normal 1.2-4.0 [facility] Comment on above: Order Comment: No: D o not add to previous draw Performed By: #### 5 0103 #### [facility] [address] [place] [address], [facility] Lymphocytes/100 WBC (Bld) 31.0 % Normal 20.0-45.0 [facility] Comment on above: Order Comment: No: D o not add to previous draw Performed By: #### 5 0103 #### [facility] [address] [place] [address], [facility] MCH (RBC) [Entitic mass] 32.0 pg Normal 27.0-33.0 [facility] Comment on above: Order Comment: No: D o not add to previous draw Performed By: #### 5 0103 #### [facility] [address] [place] [id number], [facility] MCHC (RBC) [Mass/Vol] 32.4 g/dL Normal 32.0-35.0 [facility] Comment on above: Order Comment: No: D o not add to previous draw Performed By: #### 5 0103 #### [facility] [address] [place] [address], [facility] MCV (RBC) [Entitic vol] 98.8 fL High 82.0-98.0 [facility] Comment on above: Order Comment: No: D o not add to previous draw Performed By: #### 5 0103 #### [facility] [address] [place] [address], [facility] Monocytes (Bld) [#/Vol] 0.6 10*3/uL Normal 0.1-1.0 [facility] Comment on above: Order Comment: No: D o not add to previous draw Performed By: #### 5 0103 #### [facility] [address] [place] [id number], [facility] MONOS 11.9 % Normal 5.0-12.0 [facility] Comment on above: Order Comment: No: D o not add to previous draw Performed By: #### 5 0103 #### [facility] [address] [place] [address], [facility] Neutrophils/100 WBC (Bld) 53.4 % Normal 40.0-72.0 [facility] Comment on above: Order Comment: No: D o not add to previous draw Performed By: #### 5 0103 #### [facility] [address] [place] [address], [facility] Nucleated RBC/100 WBC (Bld) [Ratio] 0 % Normal 0-0 [facility] Comment on above: Order Comment: No: D o not add to previous draw Performed By: #### 5 0103 #### [facility] [address] [place] [address], [facility] PLAT CNT 179 10*3/uL Normal 150-400 [facility] Comment on above: Order Comment: No: D o not add to previous draw Performed By: #### 5 0103 #### [facility] [address] [facility] [place] [address], [facility] RBC (Bld) [#/Vol] 3.34 10*6/uL Low 3.80-5.00 [facility] Comment on above: Order Comment: No: D o not add to previous draw Performed By: #### 5 0103 #### [facility] [address] [facility] [place] [place] [address], [facility] WBC (Bld) [#/Vol] 4.87 10*3/uL Normal 4.00-10.60 [facility] Comment on above: Order Comment: No: D o not add to previous draw Performed By: #### 5 0103 #### [facility] [address] [place] [address], [facility] POTASSIUM BLOODon 05-18-2021 Potassium [Moles/Vol] 3.7 mmol/L Normal 3.5-5.1 [facility] Comment on above: Order Comment: No: D o not add to previous draw Performed By: #### 4 1406 #### [facility] [address] [place] [address], [facility] Cardiovascular Lab Reporton 05-17-2021 Cardiovascular Lab Report [facility] Patient Name: Franki [facility] Doug MR #: [id number] Department of Physician: Regino Hernadez MD Medicine Service Date: 05/17/2021 Division of Birthdate: 1950 Cardiology Room #: CC Adult Cardiovascular Services [facility] [address] [facility]. [place], [place] [address] Cardiovascular Laboratory Report ATRIAL FIBRILLATION ABLATION PROCEDURE [...] EZ clot. Esophagus was mapped using the [employer]ianjian[employer] 3D mapping software and noted to be [...] was (more content not included)... Normal [facility] POC GLUCOSE LABon 05-17-2021 Glucose [Mass/Vol] 92 mg/dL Normal 70-100 [facility] Comment on above: Performed By: #### 8 5499 #### [facility] [address] [facility] BASIC METABOLIC PANELon 04-12 Calcium [Mass/Vol] 8.7 mg/dL Normal 8.6-10.3 [facility] Comment on above: Performed By: #### 0 0071 #### [facility] [address] [place] [address], [facility] Chloride [Moles/Vol] 103 mmol/L Normal 98-107 [facility] Comment on above: Performed By: #### 0 0071 #### [facility] [address] [place] [address], [facility] CO2 [Moles/Vol] 26 mmol/L Normal 21-31 [facility] Comment on above: Performed By: #### 0 0071 #### [facility] [address] [place] [address], [facility] Creatinine [Mass/Vol] 0.86 mg/dL Normal 0.60-1.20 [facility] Comment on above: Performed By: #### 0 0071 #### [facility] [address] [place] [address], [facility] GFR/1.73 sq M.predicted among blacks MDRD (S/P/Bld) [Vol rate/Area] mL/min/{1.73_m2} Normal >60 [facility] Comment on above: Result Comment: Calc ulation may not be valid for patients over 70 years Performed By: #### 0 0071 #### [facility] [address] [place] [address], [facility] GFR/1.73 sq M.predicted among non-blacks MDRD (S/P/Bld) [Vol rate/Area] mL/min/{1.73_m2} Normal >60 [facility] Comment on above: Result Comment: Calc ulation may not be valid for patients over 70 years Performed By: #### 0 0071 #### [facility] [address] [place] [address], [facility] Glucose [Mass/Vol] 84 mg/dL Normal 70-100 [facility] Comment on above: Performed By: #### 0 0071 #### [facility] [address] [place] [address], [place] Potassium [Moles/Vol] 4.0 mmol/L Normal 3.5-5.1 [facility] Comment on above: Performed By: #### 0 0071 #### [facility] [address] [address], [facility] Sodium [Moles/Vol] 137 mmol/L Normal 136-145 [facility] Comment on above: Performed By: #### 0 0071 #### [facility] [address] [facility] [address], [facility] Urea nitrogen [Mass/Vol] 19 mg/dL Normal 7-25 [facility] Comment on above: Performed By: #### 0 0071 #### [facility] [address] [address], [place] CTA CHESTon 05-10-2021 CTA CHEST [facility] Department of Radiology [address] [place] [id number] Patient Name: PENNY DIANE : 1950 Sex: F Age: Race: White Pt. Location: Patient Status: D Ordered Date: 04/02/2021 2:15:00 PM Completed Date: 05/10/2021 11:34 AM Requesting Provider: REGINO HERNADEZ Attending Provider: REGINO HERNADEZ Report Copy To: TY THOMAS Signs & Symptoms: I48.0 Paroxysmal atrial fibrillation I10 History: Essie labs done 04-17-21 outside faculty they are [...] 05/17/21 , , , Ordering Provider - ERGINO HERNADEZ MD , PROTOCOL: Axial CT angiography [...] dictation.} Electronically signed: Charlie Prince. Transcribed by: [email or web address], User Resident: Electronically Signed by: CHARLIE PRINCE @ 05/14/2021 11:31 AM Normal [facility] Comment on above: Order Comment: , abl ation 05/17/21 , ablation 05/17/21 , , , Ordering Provider - REGINO HERNADEZ MD , HEMATOCRITon 05-10-2021 Hematocrit (Bld) [Volume fraction] 36.0 % Normal 36.0-45.0 [facility] Comment on above: Performed By: #### 8 5499 #### [place] [address] [place] [address], [facility] HEMOGLOBINon 05-10-2021 Hemoglobin (Bld) [Mass/Vol] 12.2 g/dL Normal 12.0-15.0 [facility] Comment on above: Performed By: #### 8 5499 #### [facility] [address] [place] [address], [facility] WBC, WHITE BLOOD CELL COUNTo n 05-10-2021 WBC (Bld) [#/Vol] 4.81 10*3/uL Normal 4.00-10.60 [facility] Comment on above: Performed By: #### 8 5499 #### [facility] [address] [place] [address], [facility] XR WRIST RIGHT (MIN 3 VIEWS) [...] Gorge Key MD 06/05/18 Final result Normal [facility] Vital Signs Date Time Vital Sign Value Performing Clinician Facility 09-14-2024 11:09040 Body height 165.1 cm Sonia Baig APRN Work Phone: [facility] 09-14-2024 11:09040 Body mass index (BMI) [Ratio] 28.3 kg/m2 Sonia Baig APRN Work Phone: [facility] 09-14-2024 11:09040 Body weight 77.4 kg Sonia Baig APRN Work Phone: [facility] 09-14-2024 11:09040 Diastolic blood pressure 80 mm[Hg] Sonia Baig APRN Work Phone: [facility] 09-14-2024 11:09040 Heart rate 70 /min Sonia Baig APRN Work Phone: [facility] 09-14-2024 11:09-0400 Respiratory rate 18 /min Sonia Whytetejas PATIENT CENTERED CARE SPECIALIST Work Phone: [facility] 09-14-2024 11:09-0400 SaO2% (BldA) [Mass fraction] 97 % Sonia Whytenioclleclarenaveen PATIENT CENTERED CARE SPECIALIST Work Phone: [facility] 09-14-2024 11:09-0400 Systolic blood pressure 131 mm[Hg] Sonia Safia PATIENT CENTERED CARE SPECIALIST Work Phone: [facility] 09-10-2024 09:06-0400 Body height 165.1 cm Sonia Whytenicolleclarenaveen PATIENT CENTERED CARE SPECIALIST Work Phone: [facility] 09-10-2024 09:06-0400 Body mass index (BMI) [Ratio] 28.8 kg/m2 Sonia Whytetejas PATIENT CENTERED CARE SPECIALIST Work Phone: [facility] 09-10-2024 09:06-0400 Body temperature 96.8 [degF] Sonia Whytetejas PATIENT CENTERED CARE SPECIALIST Work Phone: [facility] 09-10-2024 09:06-0400 Body weight 78.47 kg Sonia Baig PATIENT CENTERED CARE SPECIALIST Work Phone: [facility] 09-10-2024 09:06-0400 Diastolic blood pressure 74 mm[Hg] Sonia Safia PATIENT CENTERED CARE SPECIALIST Work Phone: [facility] 09-10-2024 09:06-0400 Heart rate 83 /min Sonia Safia PATIENT CENTERED CARE SPECIALIST Work Phone: [facility] 09-10-2024 09:06-0400 SaO2% (BldA) [Mass fraction] 98 % Sonia Whytetejas PATIENT CENTERED CARE SPECIALIST Work Phone: [facility] 09-10-2024 09:06-0400 Systolic blood pressure 122 mm[Hg] Sonia Safia PATIENT CENTERED CARE SPECIALIST Work Phone: [facility] 09-09-2024 09:33-0400 Body weight 78.01 kg Sonia Whytenicolleclarenaveen PATIENT CENTERED CARE SPECIALIST Work Phone: [facility] 08-04-2024 12:50-0400 Diastolic blood pressure 71 mm[Hg] Sonia Whytetejas PATIENT CENTERED CARE SPECIALIST Work Phone: [facility] 08-04-2024 12:50-0400 Heart rate 70 /min Sonia Safia PATIENT CENTERED CARE SPECIALIST Work Phone: [facility] 08-04-2024 12:50-0400 Respiratory rate 16 /min Sonia Safia PATIENT CENTERED CARE SPECIALIST Work Phone: [facility] 08-04-2024 12:50-0400 SaO2% (BldA) [Mass fraction] 98 % Sonia Safia PATIENT CENTERED CARE SPECIALIST Work Phone: [facility] 08-04-2024 12:50-0400 Systolic blood pressure 116 mm[Hg] Sonia Whytetejas PATIENT CENTERED CARE SPECIALIST Work Phone: [facility] 08-04-2024 10:38-0400 Body height 165.1 cm Sonia Whytetejas PATIENT CENTERED CARE SPECIALIST Work Phone: [facility] 08-04-2024 10:38-0400 Body weight 77.11 kg Sonia Whytetejas PATIENT CENTERED CARE SPECIALIST Work Phone: [facility] 06-29-2024 11:20-0400 Body height 165.1 cm Sonia Safia PATIENT CENTERED CARE SPECIALIST Work Phone: [facility] 06-29-2024 11:20-0400 Body mass index (BMI) [Ratio] 28.6 kg/m2 Sonia Safia PATIENT CENTERED CARE SPECIALIST Work Phone: [facility] 06-29-2024 11:20-0400 Body weight 78.1 kg Sonia Whytetejas PATIENT CENTERED CARE SPECIALIST Work Phone: [facility] 06-29-2024 11:20-0400 Diastolic blood pressure 80 mm[Hg] Sonia Baig PATIENT CENTERED CARE SPECIALIST Work Phone: [facility] 06-29-2024 11:20-0400 Heart rate 71 /min Sonia Safia PATIENT CENTERED CARE SPECIALIST Work Phone: [facility] 06-29-2024 11:20-0400 Respiratory rate 18 /min Sonia Safia PATIENT CENTERED CARE SPECIALIST Work Phone: [facility] 06-29-2024 11:20-0400 SaO2% (BldA) [Mass fraction] 98 % Sonia Baig PATIENT CENTERED CARE SPECIALIST Work Phone: [facility] 06-29-2024 11:20-0400 Systolic blood pressure 124 mm[Hg] Sonia Baig PATIENT CENTERED CARE SPECIALIST Work Phone: [facility] 05-04-2024 10:57-0400 Body height 165.1 cm [facility] 05-04-2024 10:57-0400 Body mass index (BMI) [Ratio] 28.5 kg/m2 [facility] 05-04-2024 10:57-0400 Body weight 77.7 kg [facility] 05-04-2024 10:57-0400 Diastolic blood pressure 79 mm[Hg] [facility] 05-04-2024 10:57-0400 Heart rate 70 /min [facility] 05-04-2024 10:57-0400 Respiratory rate 18 /min [facility] 05-04-2024 10:57-0400 SaO2% (BldA) [Mass fraction] 99 % [facility] 05-04-2024 10:57-0400 Systolic blood pressure 126 mm[Hg] [facility] 04-26-2024 10:55-0400 Body height 165.1 cm Sonia Baig PATIENT CENTERED CARE SPECIALIST Work Phone: [facility] 04-26-2024 10:55-0400 Body weight 77.11 kg Sonia Baig PATIENT CENTERED CARE SPECIALIST Work Phone: [facility] 04-20-2024 12:40-0400 Body height 165.1 cm Danielle Leonel DO Work Phone: [facility] 04-20-2024 12:40-0400 Body mass index (BMI) [Ratio] 29.62 kg/m2 Danielle Leonel DO Work Phone: [facility] 04-20-2024 12:40-0400 Body weight 80.74 kg Danielle Leonel DO Work Phone: [facility] 04-20-2024 12:40-0400 Diastolic blood pressure 76 mm[Hg] Danielle Leonel DO Work Phone: [facility] 04-20-2024 12:40-0400 Heart rate 70 /min Danielle Leonel DO Work Phone: [facility] 04-20-2024 12:40-0400 SaO2% (BldA) [Mass fraction] 97 % Danielle Leonel DO Work Phone: [facility] 04-20-2024 12:40-0400 Systolic blood pressure 118 mm[Hg] Danielle Leonel DO Work Phone: [facility] 04-13-2024 09:35-0500 Body height 165.1 cm [facility] 04-13-2024 09:35-0500 Body mass index (BMI) [Ratio] 29.2 kg/m2 [facility] 04-13-2024 09:35-0500 Body temperature 98.2 [degF] [facility] 04-13-2024 09:35-0500 Body weight 79.6 kg [facility] 04-13-2024 09:35-0500 Diastolic blood pressure 80 mm[Hg] [facility] 04-13-2024 09:35-0500 Heart rate 84 /min [facility] 04-13-2024 09:35-0500 SaO2% (BldA) [Mass fraction] 96 % [facility] 04-13-2024 09:35-0500 Systolic blood pressure 124 mm[Hg] [facility] 03-24-2024 08:05-0500 Body height 165.1 cm Echo Davila MD Work Phone: [facility] 03-24-2024 08:05-0500 Body mass index (BMI) [Ratio] 29.62 kg/m2 Echo Davila MD Work Phone: [facility] 03-24-2024 08:05-0500 Body weight 80.74 kg Echo Davila MD Work Phone: [facility] 03-24-2024 08:05-0500 Diastolic blood pressure 81 mm[Hg] Echo Davila MD Work Phone: [facility] 03-24-2024 08:05-0500 Heart rate 71 /min Echo Davila MD Work Phone: [facility] 03-24-2024 08:05-0500 Systolic blood pressure 133 mm[Hg] Echo Davila MD Work Phone: [facility] 03-09-2024 11:19-0500 Body height 165.1 cm [facility] 03-09-2024 11:19-0500 Body mass index (BMI) [Ratio] 29.1 kg/m2 [facility] 03-09-2024 11:19-0500 Body weight 79.4 kg [facility] 03-09-2024 11:19-0500 Diastolic blood pressure 78 mm[Hg] [facility] 03-09-2024 11:19-0500 Heart rate 70 /min [facility] 03-09-2024 11:19-0500 Respiratory rate 18 /min [facility] 03-09-2024 11:19-0500 SaO2% (BldA) [Mass fraction] 98 % [facility] 03-09-2024 11:19-0500 Systolic blood pressure 132 mm[Hg] [facility] 03-04-2024 10:38-0500 Body height 165.1 cm [facility] 03-04-2024 10:38-0500 Body mass index (BMI) [Ratio] 29.2 kg/m2 [facility] 03-04-2024 10:38-0500 Body temperature 98.2 [degF] [facility] 03-04-2024 10:38-0500 Body weight 79.6 kg [facility] 03-04-2024 10:38-0500 Diastolic blood pressure 72 mm[Hg] [facility] 03-04-2024 10:38-0500 Heart rate 74 /min [facility] 03-04-2024 10:38-0500 SaO2% (BldA) [Mass fraction] 98 % [facility] 03-04-2024 10:38-0500 Systolic blood pressure 116 mm[Hg] [facility] 12-30-2023 11:14-0500 Body height 165.1 cm [facility] 12-30-2023 11:14-0500 Body mass index (BMI) [Ratio] 29.3 kg/m2 [facility] 12-30-2023 11:14-0500 Body temperature 97.5 [degF] [facility] 12-30-2023 11:14-0500 Body weight 80 kg [facility] 12-30-2023 11:14-0500 Diastolic blood pressure 82 mm[Hg] [facility] 12-30-2023 11:14-0500 Heart rate 82 /min [facility] 12-30-2023 11:14-0500 SaO2% (BldA) [Mass fraction] 97 % [facility] 12-30-2023 11:14-0500 Systolic blood pressure 136 mm[Hg] [facility] 12-23-2023 10:56-0500 Body height 165.1 cm [facility] 12-23-2023 10:56-0500 Body mass index (BMI) [Ratio] 29 kg/m2 [facility] 12-23-2023 10:56-0500 Body weight 79.06 kg [facility] 12-23-2023 10:56-0500 Diastolic blood pressure 89 mm[Hg] [facility] 12-23-2023 10:56-0500 Heart rate 71 /min [facility] 12-23-2023 10:56-0500 Respiratory rate 18 /min [facility] 12-23-2023 10:56-0500 SaO2% (BldA) [Mass fraction] 98 % [facility] 12-23-2023 10:56-0500 Systolic blood pressure 145 mm[Hg] [facility] 10-28-2023 13:26-0400 Body height 165.1 cm [facility] 10-28-2023 13:26-0400 Body mass index (BMI) [Ratio] 29.2 kg/m2 [facility] 10-28-2023 13:26-0400 Body weight 79.6 kg [facility] 10-28-2023 13:26-0400 Diastolic blood pressure 86 mm[Hg] [facility] 10-28-2023 13:26-0400 Heart rate 70 /min [facility] 10-28-2023 13:26-0400 Respiratory rate 18 /min [facility] 10-28-2023 13:26-0400 SaO2% (BldA) [Mass fraction] 99 % [facility] 10-28-2023 13:26-0400 Systolic blood pressure 132 mm[Hg] [facility] 08-28-2023 10:32-0400 Body height 165.1 cm [facility] 08-28-2023 10:32-0400 Body mass index (BMI) [Ratio] 29.6 kg/m2 [facility] 08-28-2023 10:32-0400 Body weight 80.73 kg [facility] 08-28-2023 10:32-0400 Diastolic blood pressure 70 mm[Hg] [facility] 08-28-2023 10:32-0400 Heart rate 70 /min [facility] 08-28-2023 10:32-0400 SaO2% (BldA) [Mass fraction] 98 % [facility] 08-28-2023 10:32-0400 Systolic blood pressure 118 mm[Hg] [facility] 08-26-2023 13:33-0400 Body height 165.1 cm [facility] 08-26-2023 13:33-0400 Body mass index (BMI) [Ratio] 29.9 kg/m2 [facility] 08-26-2023 13:33-0400 Body weight 81.7 kg [facility] 08-26-2023 13:33-0400 Diastolic blood pressure 89 mm[Hg] [facility] 08-26-2023 13:33-0400 Heart rate 70 /min [facility] 08-26-2023 13:33-0400 Respiratory rate 18 /min [facility] 08-26-2023 13:33-0400 SaO2% (BldA) [Mass fraction] 98 % [facility] 08-26-2023 13:33-0400 Systolic blood pressure 140 mm[Hg] [facility] 03-13-2023 14:00-0500 Body height 165.1 cm Joaquín Maria Other [facility] [employer] Other 03-13-2023 14:00-0500 Body mass index (BMI) [Ratio] 29.15 kg/m2 Joaquín Maria Other [employer] [facility] [employer] Other 03-13-2023 14:00-0500 Body weight 79.47 kg Joaquín Maria Other [employer] Other 03-13-2023 14:00-0500 Diastolic blood pressure 77 mm[Hg] Joaquín Maria Other [employer] Other 03-13-2023 14:00-0500 Respiratory rate 18 /min Joaquín Maria Other [employer] Other 03-13-2023 14:00-0500 SaO2% (BldA) [Mass fraction] 99 % Joaquín Maria Other [employer] Other 03-13-2023 14:00-0500 Systolic blood pressure 122 mm[Hg] Joaquín Maria Other [employer] Other 03-04-2023 14:00-0500 Body height 165.1 cm [facility] Other [employer] Other 03-04-2023 14:00-0500 Body mass index (BMI) [Ratio] 29.04 kg/m2 [facility] Other [employer] Other 03-04-2023 14:00-0500 Body weight 79.15 kg [facility] Other [employer] Other 03-04-2023 14:00-0500 Diastolic blood pressure 70 mm[Hg] [facility] Other [employer] Other 03-04-2023 14:00-0500 SaO2% (BldA) [Mass fraction] 95 % [facility] Other [employer] Other 03-04-2023 14:00-0500 Systolic blood pressure 111 mm[Hg] [facility] Other [employer] Other 12-04-2022 13:15-0400 Body height 165.1 cm Viviana Williamson Other [employer] Other 11-21-2022 13:00-0400 Body height 165.1 cm Joaquín Maria Other [employer] Other 11-21-2022 13:00-0400 Body mass index (BMI) [Ratio] 28.19 kg/m2 Joaquín Maria Other [employer] Other 11-21-2022 13:00-0400 Body weight 76.84 kg Joaqíun Maria Other [employer] Other 11-21-2022 13:00-0400 Diastolic blood pressure 73 mm[Hg] Joaquín Maria Other [employer] Other 11-21-2022 13:00-0400 Respiratory rate 18 /min Joaquín Maria Other [employer] Other 11-21-2022 13:00-0400 SaO2% (BldA) [Mass fraction] 98 % Joaquín Maria Other [employer] Other 11-21-2022 13:00-0400 Systolic blood pressure 120 mm[Hg] Joaquín Maria Other [employer] Other 09-17-2022 13:45-0400 Body height 165.1 cm [...] Body height 165.1 cm Joaquín Maria Other [employer] Other 08-06-2022 13:00-0400 Body mass index (BMI) [Ratio] 28.27 kg/m2 Joaquín Maria Other [employer] Other 08-06-2022 13:00-0400 Body weight 77.07 kg Joaquín Maria Other [employer] Other 08-06-2022 13:00-0400 Diastolic blood pressure 83 mm[Hg] Joaquín Crewsdiff Other [employer] Other 08-06-2022 13:00-0400 Respiratory rate 18 /min Joaquín Crewsdiff Other [employer] Other 08-06-2022 13:00-0400 SaO2% (BldA) [Mass fraction] 94 % Joaquín Crewsdiff Other [employer] Other 08-06-2022 13:00-0400 Systolic blood pressure 129 mm[Hg] Joaquín Crewsdiff Other [employer] Other 04-18-2022 13:15-0500 Body height 165.1 cm Joaquín Maria Other [employer] Other 04-18-2022 13:15-0500 Body mass index (BMI) [Ratio] 28.6 kg/m2 Joaquín Crewsdiff Other [employer] Other 04-18-2022 13:15-0500 Body weight 77.97 kg Joaquín Maria Other [employer] Other 04-18-2022 13:15-0500 Diastolic blood pressure 74 mm[Hg] Joaquín Maria Other [employer] Other 04-18-2022 13:15-0500 Respiratory rate 18 /min Joaquín Maria Other [employer] Other 04-18-2022 13:15-0500 SaO2% (BldA) [Mass fraction] 99 % Joaquín Crewsdiff Other [employer] Other 04-18-2022 13:15-0500 Systolic blood pressure 106 mm[Hg] Joaquín Crewsdiff Other [employer] Other 01-10-2022 14:45-0500 Body height 165.1 cm Viviana Zeyadcyrus Other [employer] Other 12-04-2021 14:30-0400 Body height 165.1 cm Joaquín Maria Other [employer] Other 12-04-2021 14:30-0400 Body mass index (BMI) [Ratio] 27.34 kg/m2 Joaquín Crewsdiff Other [employer] Other 12-04-2021 14:30-0400 Body weight 74.53 kg Joaquín Crewsdiff Other [employer] Other 12-04-2021 14:30-0400 Diastolic blood pressure 72 mm[Hg] Joaquín Crow Other [employer] Other 12-04-2021 14:30-0400 Respiratory rate 18 /min Joaquín Joyaff Other [employer] Other 12-04-2021 14:30-0400 SaO2% (BldA) [Mass fraction] 99 % Joaquín Crewsdiff Other [employer] Other 12-04-2021 14:30-0400 Systolic blood pressure 112 mm[Hg] Joaquínnick Crewsdiff Other [employer] Other 11-08-2021 14:45-0400 Body height 165.1 cm Joaquín Maria Other [employer] Other 11-08-2021 14:45-0400 Body mass index (BMI) [Ratio] 27.47 kg/m2 Joaquín Maria Other [employer] Other 11-08-2021 14:45-0400 Body weight 74.89 kg Joaquín Maria Other [employer] Other 11-08-2021 14:45-0400 Diastolic blood pressure 112 mm[Hg] Joaquín Crewsdiff Other [employer] Other 11-08-2021 14:45-0400 Respiratory rate 18 /min Joaquín Maria Other [employer] Other 11-08-2021 14:45-0400 SaO2% (BldA) [Mass fraction] 99 % Joaquínnick Crewsdiff Other [employer] Other 11-08-2021 14:45-0400 Systolic blood pressure 160 mm[Hg] Joaquínnick Crewsdiff Other [employer] Other 09-27-2021 15:45-0400 Body height 165.1 cm Joaquín Crewsdiff Other [employer] Other 09-27-2021 15:45-0400 Body mass index (BMI) [Ratio] 28.6 kg/m2 Joaquín Crewsdiff Other [employer] Other 09-27-2021 15:45-0400 Body weight 77.96 kg Joaquín Crewsdiff Other [employer] Other 09-27-2021 15:45-0400 Diastolic blood pressure 71 mm[Hg] Joaquín Crewsdiff Other [employer] Other 09-27-2021 15:45-0400 Respiratory rate 18 /min Joaquín Crewsdiff Other [employer] Other 09-27-2021 15:45-0400 SaO2% (BldA) [Mass fraction] 100 % Joaquín Crewsdiff Other [employer] Other 09-27-2021 15:45-0400 Systolic blood pressure 123 mm[Hg] Joaquínnick Maria Other [employer] Other 08-16-2021 15:00-0400 Body height 165.1 cm Viviana Fitt Other [employer] Other 08-16-2021 15:00-0400 Body mass index (BMI) [Ratio] 30.13 kg/m2 Viviana Fitt Other [employer] Other 08-16-2021 15:00-0400 Body weight 82.15 kg Viviana Fitt Other [employer] Other 06-26-2021 15:00-0400 Body height 165.1 cm Viviana Fitt Other [employer] Other 06-26-2021 15:00-0400 Body mass index (BMI) [Ratio] 30.85 kg/m2 Viviana Fitt Other [employer] Other 06-26-2021 15:00-0400 Body weight 84.1 kg Viviana Fitt Other [employer] Other 05-15-2021 16:45-0400 Body height 165.1 cm Joaquínnick Maria Other [employer] Other 05-15-2021 16:45-0400 Body mass index (BMI) [Ratio] 32.45 kg/m2 Joaquín Maria Other [employer] Other 05-15-2021 16:45-0400 Body weight 88.45 kg Joaquín Maria Other [employer] Other 05-15-2021 16:45-0400 Diastolic blood pressure 65 mm[Hg] Joaquín Maria Other [employer] Other 05-15-2021 16:45-0400 Respiratory rate 16 /min Joaquín Maria Other [employer] Other 05-15-2021 16:45-0400 SaO2% (BldA) [Mass fraction] 98 % Joaquín Maria Other [employer] Other 05-15-2021 16:45-0400 Systolic blood pressure 113 mm[Hg] Joaquín Maria Other [employer] Other 04-19-2021 14:45-0500 Body height 165.1 cm Viviana Fitt Other [employer] Other 04-19-2021 14:45-0500 Body mass index (BMI) [Ratio] 32.5 kg/m2 Viviana Fitt Other [employer] Other 04-19-2021 14:45-0500 Body weight 88.59 kg Viviana Fitt Other [employer] Other 04-09-2021 16:45-0500 Body height 165.1 cm Joaquín Maria Other [employer] Other 04-09-2021 16:45-0500 Body mass index (BMI) [Ratio] 32.53 kg/m2 Joaquín Maria Other [employer] Other 04-09-2021 16:45-0500 Body weight 88.68 kg Joaquín Maria Other [employer] Other 04-09-2021 16:45-0500 Diastolic blood pressure 68 mm[Hg] Joaquín Maria Other [employer] Other 04-09-2021 16:45-0500 Respiratory rate 18 /min Joaquín Maria Other [employer] Other 04-09-2021 16:45-0500 SaO2% (BldA) [Mass fraction] 100 % Joaquín Maria Other [employer] Other 04-09-2021 16:45-0500 Systolic blood pressure 115 mm[Hg] Joaquín Maria Other [employer] Other Encounters Encounter Date Encounter Type Care Provider Facility Start: 09-14-2024 End: 09-14-2024 ambulatory Sonia Baig APRN Work Phone: [facility] Work Phone: Start: 09-14-2024 End: 09-14-2024 Patient encounter procedure Joaquín Maria MD [facility] Work Phone: Start: 09-10-2024 End: 09-10-2024 ambulatory Sonia Baig APRN Work Phone: [facility] Work Phone: Start: 09-10-2024 End: 09-10-2024 Patient encounter procedure S[facility]ig [facility]N [facility] Work Phone: Start: 09-09-2024 End: 09-09-2024 ambulatory Sonia Baig APRN Work Phone: [facility] Work Phone: Start: 09-09-2024 End: 09-09-2024 Patient encounter procedure Ivette Silva [facility] Work Phone: Start: 08-04-2024 End: 08-04-2024 ambulatory Imad Asaad Facility:[facility] Start: 08-04-2024 Non-patient / Non-visit Imad Asaad [facility] Work Phone: Start: 06-29-2024 End: 06-29-2024 Patient encounter procedure Joaquín Maria MD [facility] Work Phone: Start: 06-23-2024 Non-patient / Non-visit Darius LYMAN -[facility] [employer] Work Phone: Start: 06-17-2024 End: 06-17-2024 ambulatory DARIUS VERONICA [facility] Start: 06-14-2024 ambulatory REGINO HERNADEZ [facility] Start: 06-14-2024 Non-patient / Non-visit Liliane Baig APRN PROFILE TRIMMER -[facility] [employer] Work Phone: Start: 05-12-2024 End: 05-12-2024 Admission to same day surgery center Sonia Baig APRN Work Phone: [facility] Work Phone: Start: 05-12-2024 End: 05-12-2024 Departed Referred Viri Toscano MD [facility] Work Phone: Start: 05-12-2024 End: 05-12-2024 ambulatory Sonia Baig APRN Work Phone: [facility] Work Phone: Start: 05-04-2024 End: 05-04-2024 ambulatory [facility] Work Phone: Start: 05-04-2024 End: 05-04-2024 Patient encounter procedure [facility] Work Phone: Start: 04-20-2024 End: 04-20-2024 ambulatory DANIELLE WAITE Not Available Start: 04-20-2024 End: 04-20-2024 Office outpatient visit 25 minutes Danielle Waite DO Work Phone: [facility] Comment on above: NURIA (obstructive sle ep apnea) (Primary Dx); Hypoxia; Hypersomnia; Snoring Start: 04-13-2024 End: 04-13-2024 ambulatory [facility] Work Phone: Start: 04-13-2024 End: 04-13-2024 Patient encounter procedure [facility] Work Phone: Start: 03-26-2024 End: 03-26-2024 ambulatory DARIUS VERONICA [facility] Start: 03-24-2024 End: 03-24-2024 Bambo flowskenneth Davila MD Work Phone: [facility] Start: 03-24-2024 End: 03-24-2024 Bamlarryo flowskenneth Davila MD Work Phone: [facility] Start: 03-24-2024 End: 03-24-2024 Patient encounter procedure Echo Davila MD Work Phone: [facility] Comment on above: Hoarse (Primary Dx) Start: 03-24-2024 End: 03-24-2024 ambulatory ECHO DAVILA Not Available Start: 03-09-2024 End: 03-09-2024 Patient encounter procedure [facility] Work Phone: Start: 03-04-2024 Patient encounter procedure [facility] Start: 03-04-2024 End: 03-04-2024 ambulatory [facility] Work Phone: Start: 03-04-2024 End: 03-04-2024 Patient encounter procedure [facility] Work Phone: Start: 03-04-2024 Non-patient / Non-visit [facility] Work Phone: Start: 12-30-2023 End: 12-30-2023 ambulatory [facility] Work Phone: Start: 12-30-2023 End: 12-30-2023 Patient encounter procedure [facility] Work Phone: Start: 12-23-2023 End: 12-23-2023 ambulatory [facility] Work Phone: Start: 12-23-2023 End: 12-23-2023 Patient encounter procedure [facility] Work Phone: Start: 11-27-2023 End: 11-27-2023 ambulatory [facility] Start: 10-28-2023 End: 10-28-2023 ambulatory [facility] Work Phone: Start: 10-28-2023 End: 10-28-2023 Patient encounter procedure [facility] Work Phone: Start: 09-30-2023 End: 09-30-2023 ambulatory JACI [facility] Start: 08-28-2023 End: 08-28-2023 ambulatory [facility] Work Phone: Start: 08-28-2023 End: 08-28-2023 Patient encounter procedure [facility] Work Phone: Start: 08-26-2023 End: 08-26-2023 ambulatory [facility] Work Phone: Start: 08-26-2023 End: 08-26-2023 Patient encounter procedure [facility] Work Phone: Start: 03-13-2023 End: 03-13-2023 ambulatory Joaquín Maria Other [employer] Other Start: 03-13-2023 Follow-up encounter Joaquín Maria [facility] Start: 03-05-2023 Telephone encounter Elias Domingo DO Work Phone: [facility] Start: 03-04-2023 End: 03-04-2023 Patient encounter procedure DO Ty House Work Phone: [facility] Work Phone: Start: 03-04-2023 End: 03-04-2023 ambulatory DO Ty House Work Phone: [facility] Work Phone: Start: 03-04-2023 Office outpatient ne w 60 minutes [facility] Start: 01-09-2023 Registered Recurring DO Jr s House Work Phone: [facility] Work Phone: Start: 01-09-2023 End: 01-09-2023 Patient encounter procedure DO Ty House Work Phone: [facility] Work Phone: Start: 12-04-2022 (Technical Sme) Technical Sme Viviana [facility]ians[facility] Start: 12-04-2022 End: 12-04-2022 ambulatory Viviana Williamson Other [employer] Other Start: 11-21-2022 End: 11-21-2022 ambulatory Joaquín Maria Other [employer] Other Start: 11-21-2022 Follow-up encounter Joaquín [facility] Start: 11-19-2022 End: 11-19-2022 ambulatory Joaquín Maria Other [employer] Other Start: 11-19-2022 Telephone encounter Joaquín [facility] Start: 09-17-2022 End: 09-17-2022 ambulatory Joaquín Maria Other Not Available Start: 09-17-2022 Follow-up encounter Joaquín [facility] Start: 08-06-2022 End: 08-06-2022 ambulatory Joaquín Maria Other [employer] Other Start: 08-06-2022 Follow-up encounter Joaquín [facility]ians[facility] Start: 06-19-2022 End: 06-20-2022 ambulatory JIMI THOMPSON Facility: Start: 04-24-2022 End: 04-24-2022 ambulatory Viviana Williamson Other [employer] Other Start: 04-24-2022 Telephone encounter Viviana [facility] Start: 04-18-2022 End: 04-18-2022 ambulatory Joaquín Maria Other [employer] Other Start: 04-18-2022 Follow-up encounter Joaquín Maria [facility] Start: 04-11-2022 (Technical Sme) Technical Sme Viviana Williamson [facility] Start: 04-11-2022 End: 04-11-2022 ambulatory Viviana Clay Other [employer] Other Start: 04-10-2022 End: 04-11-[address] TY THOMAS Facility:[facility] Start: 03-22-2022 End: 03-26-2022 Evaluation and management of inpatient DR TY THOMAS Facility:[facility] Start: 01-22-2022 End: 01-23-2022 ambulatory REGINO HERNADEZ Facility:[facility] Start: 01-10-2022 End: 01-10-2022 ambulatory Viviana Jefferscyrus Other [employer] Other Start: 01-10-2022 IBT for Obesity subQ 15 min (Max charge 2 units) Viviana Williamson [facility] Start: 12-04-2021 End: 12-04-2021 ambulatory Joaquín Maria Other [employer] Other Start: 12-04-2021 Follow-up encounter Joaquín Maria [facility] [facility] Start: 11-08-2021 End: 11-08-2021 ambulatory Joaquín Maria Other [facility] Other Start: 11-08-2021 Follow-up encounter Joaquín Maria [facility] Start: 10-09-2021 End: 10-10-2021 ambulatory JACI BROOKS Facility:[facility] Start: 09-27-2021 End: 09-27-2021 ambulatory Joaquín Maria Other [facility] Other Start: 09-27-2021 Follow-up encounter Joaquín [facility] Start: 09-05-2021 End: 09-06-2021 ambulatory JACI BROOKS Facility: Start: 08-24-2021 ambulatory ELANA SETES Facility: 1 Start: 08-16-2021 ([facility] RD FU) [facility] F/ U [employer] Viviana Williamson [facility] Start: 08-16-2021 End: 08-16-2021 ambulatory Viviana Fitt Other [facility] Other Start: 08-15-2021 End: 08-16-2021 ambulatory REGINO HERNADEZ Facility: Start: 07-16-2021 Encounter for other preprocedural examination JACI [facility] Start: 07-16-2021 Encounter for preprocedural laboratory examination JACI [facility] Start: 07-11-2021 End: 07-12-2021 ambulatory REGINO MAGANAO Facility:[facility] Start: 07-09-2021 End: 07-10-2021 ambulatory JACI BROOKS Facility: Start: 07-09-2021 End: 07-10-2021 Encounter for other preprocedural examination JACI JIMENESER Facility: Start: 07-04-2021 End: 07-04-2021 ambulatory Joaquín Maria Other [facility] Other Start: 07-04-2021 Telephone encounter Joaquín [facility] Start: 06-26-2021 ([facility] FU) [facility] F/ U [employer] Viviana Williamson [facility] Start: 06-26-2021 End: 06-26-2021 ambulatory Viviana Fitt Other [facility] Other Start: 06-26-2021 Telephone encounter Joaquín [facility] Start: 06-04-2021 End: 06-04-2021 ambulatory Viviana Williamson Other [facility] Other Start: 06-04-2021 Telephone encounter Viviana [facility] Start: 05-28-2021 End: 05-28-2021 ambulatory Joaquín Maria Other [employer] Other Start: 05-28-2021 Telephone encounter [facility]ín [facility] Start: 05-24-2021 End: 05-24-2021 ambulatory Vivianakristine Williamson Other [employer] Other Start: 05-24-2021 Telephone encounter Viviana Williamson [facility] Start: 05-17-2021 End: 05-18-2021 ambulatory [facility] Start: 05-15-2021 End: 05-15-2021 ambulatory Joaquín Maria Other [facility] Other Start: 05-15-2021 Follow-up encounter [facility]aquín [facility] Start: 05-09-2021 End: 05-09-2021 ambulatory Joaquín Maria Other [employer] Other Start: 05-09-2021 Telephone encounter Joaquín [facility] Start: 04-19-2021 ([facility]NI) [facility] Init ial Provider Viviana Zeyadcyrus [facility] Start: 04-19-2021 End: 04-19-2021 ambulatory Viviana Williamson Other [facility] Other Start: 04-09-2021 End: 04-09-2021 ambulatory Joaquín Maria Other [facility] Other Start: 04-09-2021 Follow-up encounter Joaquín [facility] Start: 06-05-2018 End: 06-08-2018 Patient encounter procedure SR [facility] Procedures Date Procedure Procedure Detail Performing Clinician Start: 06-05-2018 Radex wrist complete minimum 3 views SR [place] Plan of Treatment Date Care Activity Detail Author Start: 08-04-2024 [facility] Start: 05-12-2024 Colonoscopy DH Colonoscopy Diagnostic (Not Applicable) [facility] Start: 05-12-2024 [facility] Start: 04-20-2024 End: 04-20-2024 Patient encounter procedure 04/20/2024 12:30 PM EDT Office Visit [facility] [address] [place] [address] Danielle Waite DO [address] [place] [id number] [facility] Start: 03-24-2024 End: 03-24-2024 Patient encounter procedure 03/24/2024 8:10 AM EST Office Visit [facility] [address] [facility] [address] [place] [id number] Echo Davila MD [address] [facility] [address] [place] [address] Arrived [facility] Comment on above: Arrived Start: 03-04-2024 Patient referral [facility] Work Phone: Start: 04-09-2023 End: 04-09-2023 Patient encounter procedure 04/09/2023 3:00 PM EST Office Visit [facility] [address] [place] [id number] Elias Domingo DO [address] [place] [address] [facility] Start: 03-24-2023 Pneumococcal Vaccine : 65+ Years (2 - PCV) Pneumococcal Vaccine: 65+ Years (2 - PCV) [facility] Start: 10-11-2022 Influenza vaccination Influenza Vacc ine (#1) [facility] Start: 1989 Screening for malign ant neoplasm of breast Mammogram [facility] Start: 1949 Screening for malign ant neoplasm of colon [facility] metabo lic 1999 panel - Serum or Plasma [facility] Comprehensive metabo lic 1999 panel - Serum or Plasma [facility] Comprehensive metabo lic 1999 panel - Serum or Plasma [facility] DXA Skeletal system.axial Views for bone density [facility] MG Breast - bilatera l Screening [facility] MG Breast - bilatera l Screening [facility] Patient Education Know your Meds [facility] Work Phone: Patient referral [facility] Work Phone: [facility] Immunizations Immunization Date Immunization Notes Care Provider Terence cooley 09-10-2024 Pneumococcal Conjuga te Vaccine, 20 valent Sonia Baig APRN Work Phone: [facility] 03-24-2022 pneumococcal polysaccharide vaccine, 23 valent [facility] 01-01-2022 COVID-19 mRNA Bivale nt Booster (Moderna) [facility] 01-01-2022 Fluzone QIV High-Dos e 65YR+ [facility] 01-01-2022 zoster vaccine recombinant [facility] 01-01-2022 influenza virus vaccine, unspecified formulation Elias Domingo DO Work Phone: [facility] 12-26-2020 COVID-19 mRNA, Comirnaty (Pfizer) [facility] 12-23-2020 zoster vaccine recombinant [facility] 05-11-2020 pneumococcal polysaccharide vaccine, 23 valent [facility] 04-17-2020 COVID-19 Vaccine Ehsan - Documentation Purposes Only Joaquín Maria Other [facility] Payers Date Payer Category Payer Medicare [id number] 2014 Medicare MEDICARE [id number] 2013 Private Health Insurance [employer] [id number] 1959 Medicare [id number] 1959 Private Health Insurance [id number] 1959 Self-pay 1949 Unknown [id number] 2.16.840.1.372269.3.579.2. 173 1949 Unknown [id number] 2.16.840.1.866169.3.579.2. 173 1949 Unknown [id number] 2.16.840.1.260669.3.579.2. 647 1949 Unknown [id number] 2.16.840.1.094012.3.579.2. 647 1949 Unknown [id number] 2.16.840.1.877866.3.579.2. 593 1949 Unknown [id number] 2.16.840.1.140664.3.579.2. 593 1949 Unknown [id number] 2.16.840.1.980501.3.579.2. 593 1949 Unknown [id number] 2.16.840.1.588428.3.579.2. 593 1949 Unknown [id number] 2.16.840.1.026287.3.579.2. 593 1949 Unknown [id number] 2.16.840.1.394686.3.579.2. 593 1949 Unknown [id number] 2.16.840.1.131236.3.579.2. 593 1949 Unknown [id number] 2.16.840.1.325053.3.579.2. 593 1949 Unknown [id number] 2.16.840.1.921852.3.579.2. 1259 1949 Unknown [id number] 2.16.840.1.973991.3.579.2. 1259 Private Health Insurance [facility] [employer] [id number] Unknown [id number] 2.16.840.1.227244.3.579.2. 593 Unknown [id number] 2.16.840.1.815865.3.579.2. 531 Unknown [id number] 2.16.840.1.367254.3.579.2. 531 Social History Date Type Detail Facility Unknown if ever smoked [employer] Other Start: 04-09-2023 End: 04-20-2024 Sex Assigned At [employer] Other Start: 1950 Sex Assigned At Female F [facility] Tobacco smoking status LAIS Tobacco smoking consumption unknown [facility] Start: 1950 Sex Assigned At Not on file N [facility] Start: 08-28-2023 End: 12-30-2023 Tobacco smoking status NHIS Ex-smoker (finding) [facility] Start: 12-23-2023 End: 05-12-2024 Sex Female (finding) [facility] History of tobacco use Current smoker [facility] History of tobacco use Cigarette Smoker [facility] Start: 04-09-2023 End: 04-20-2024 Alcoholic beverage intake Current drinker of alcohol (finding) [facility] Start: 04-09-2023 End: 04-20-2024 History of Social function [facility] Start: 04-07-2023 Alcohol Comment caffeine intak e : 1-2 cups per day [facility] Start: 08-04-2024 Tobacco smoking status [facility] Never smoked tobacco (finding) [facility] Clinical Notes 04-09-2021 to 06-29-2024 Note [...] it was helpful. Now on Semaglutide from [facility], down 12.4lbs.. 1. Abnormal weight gain. Her [...] fruits and vegetables. She is seeing the nuclear medicine physician. The patient will treat with long-term lifestyle [...] and weight loss. Monitor. 7. Obstructive sleep apnea/Chaparral of 14/a.m. fatigue-treat with CPAP. We will [...] is going to start working with our nuclear medicine physician for nutritional and bioimpedance follow-up. New labs needed: Up-to-date. She will need yearly blood work again 02/2025. [facility] Work Phone: 1(176) 637-318905-20-2025 Evaluation note* Author Joaquín Maria [facility] Authored June 29, 2024 12:04 pm [...] it was helpful. Now on Semaglutide from [facility], down 12.4lbs.. 1. Abnormal weight gain. Her [...] fruits and vegetables. She is seeing the nuclear medicine physician. The patient will treat with long-term lifestyle [...] and weight loss. Monitor. 7. Obstructive sleep apnea/[place] of 14/a.m. fatigue-treat with CPAP. We will [...] is going to start working with our nuclear medicine physician for nutritional and bioimpedance follow-up. New labs needed: Up-to-date. She will need yearly blood work again 02/2025. Author Bryanna Ryder [facility] Authored September 14, 2024 11: 27am [...] it was helpful. Now on Semaglutide from [facility], down 12.4lbs.. 1. Abnormal weight gain. Her [...] fruits and vegetables. She is seeing the nuclear medicine physician. The patient will treat with long-term lifestyle [...] and weight loss. Monitor. 7. Obstructive sleep apnea/[place] of 14/a.m. fatigue-treat with CPAP. We will [...] is going to start working with our nuclear medicine physician for nutritional and bioimpedance follow-up. New labs needed: Up-to-date. She will need yearly blood work again 02/2025. [facility] Work Phone: 1(660) 379-120605-08-2025 NoteSUBJECTIVE Reason for Visit: Penny Diane is [...] atrial flutter. A cardiac resynchronization therapy pacemaker (CLOCK AND WATCH ASSEMBLER-P) was implanted on January 21, 2022, and [...] (CMS/HCC) Presence of cardiac resynchronization therapy pacemaker (CLOCK AND WATCH ASSEMBLER-P) Anxiety Depression Fatty liver Hypercholesterolemia Overweight (BMI [...] Medications Medication Instructions atorv (more content not included)...[facility] 04-20-2024 History of Present illness Narrative* Danielle [...] Past Medical History: Diagnosis Date Atrial flutter (CMS/[facility]ER[facility]) 08/20/2021 Chronic systolic congestive heart failure (CMS/[facility]) 04/09/2023 Last Assessment & Plan: - 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 -NYHA 1B -Continue GDMT, Toprol-XL 100 mg, lisinopril 20 mg, Lasix 40 mg twice daily, will start Farxiga after procedure and have patient get BMP 2 weeks later -Was recently discharged from [facility] for acute decompensated heart failu Cirrhosis ([facility]) Elevated liver function tests 10/23/2016 Hypertension ([facility]) Hypertensive disorder ([facility]) 06/27/2020 Last Assessment & Plan: - Hypertension stable -Continue medications Longstanding persistent atrial fibrillation ([facility]) 03/08/2022 Added automatically from request for surgery [id number] Last Assessment & Plan: - [id number] -Continue Xarelto 20 mg, metoprolol XL 100 mg, Cardizem 360 mg -Status post CLOCK AND WATCH ASSEMBLER-P pending AVN ablation Nonrheumatic mitral valve regurgitation 04/09/2023 Last Assessment & Plan: - Moderate MR per recent echo -We will monitor with echocardiograms annually Nonrheumatic tricuspid valve regurgitation 04/09/2023 Last Assessment & Plan: - Moderate tricuspid regurgitation -Monitor with echocardiograms Nosebleed 2024 NURIA (obstructive sleep apnea) 04/21/2022 Last Assessment & Plan: -continue compliance with cpap Paroxysmal atrial fibrillation ([facility]) 05/23/2020 Added automatically from request for surgery [id number] Presence of cardiac resynchronization therapy pacemaker (CLOCK AND WATCH ASSEMBLER-P) 06/19/2022 Steatohepatitis, nonalcoholic 10/23/2016 Past Surgical History: Procedure Laterality Date CARDIAC PACEMAKER PLACEMENT CHOLECYSTECTOMY 2017 open choley liver biopsy CT ANGIOGRAM HEART CORONARY 05/14/2021 CT ANGIOGRAM TAVR WRIST SURGERY 2009 Family History Problem Relation Name Age of Onset Hypertension Mother Mer Blanchardphillip Tapia Cancer Mother Mer Blanchardphillip Tapia Hearing loss Mother Mer Tapia Heart failure Mother eMr Tapia Hearing loss Father Crystal Tapia Cancer [...] was counseled on the risks of stroke, NC, and sudden with NURIA, along with the [...] inspire, let us know documented in this encounterScotland County Memorial [id number] NotePatient here for 6 mo follow up [...] cough. All other systems reviewed and are negative.[facility] 03-26-2024 NoteSUBJECTIVE Reason for Visit: Penny Diane [...] atrial flutter. A cardiac resynchronization therapy pacemaker (CLOCK AND WATCH ASSEMBLER-P) was implanted on January 21, 2022, and [...] (CMS/HCC) Presence of cardiac resynchronization therapy pacemaker (CLOCK AND WATCH ASSEMBLER-P) Anxiety Depression Fatty liver Hypercholesterolemia Overweight (BMI [...] Medications Medication Instructions atorvas (more content not included)...[facility] 03-24-2024 History of Present illness Narrative* Echo [...] 05/23/2020 Presence of cardiac resynchronization therapy pacemaker (CLOCK AND WATCH ASSEMBLER-P) 06/19/2022 Steatohepatitis, nonalcoholic 10/23/2016 Past Medical History: [...] [place] at in [place]. documented in this [facility]01-28-2025 Evaluation note* Author Joaquín Maria [facility] Authored March 09, 2024 1 :00pm [...] fruits and vegetables. She is seeing the nuclear medicine physician. The patient will treat with long-term lifestyle [...] and weight loss. Monitor. 7. Obstructive sleep apnea/Chaparral of 14/a.m. fatigue-treat with CPAP. We will [...] blood work again 02/2025. Author Bryanna Ryder [facility] Authored May 04, 2024 11: 19am [...] it was helpful. Now on Semaglutide from [facility], down 13.2lbs.. 1. Abnormal weight gain. Her [...] fruits and vegetables. She is seeing the nuclear medicine physician. The patient will treat with long-term lifestyle [...] and weight loss. Monitor. 7. Obstructive sleep apnea/Chapar[place] of 14/a.m. fatigue-treat with CPAP. We will [...] will need yearly blood work again 02/2025. [facility] Work Phone: 1(363) 442-659301-28-2025 Evaluation note* Author Joaquín Maria [facility] Authored March 09, 2024 1 2:00pm [...] it was helpful. Now on Semaglutide from [facility], down 9.4 lbs.. 1. Abnormal weight gain. [...] fruits and vegetables. She is seeing the nuclear medicine physician. The patient will treat with long-term lifestyle [...] and weight loss. Monitor. 7. Obstructive sleep apnea/Chapar[place] of 14/a.m. fatigue-treat with CPAP. We will [...] will need yearly blood work again 02/2025. [facility] Work Phone: 1(616) 142-829011-12-2024 Evaluation note* Author Joaquín Maria [facility] Authored December 23, 2023 1:15pm Start [...] it was helpful. Now on Semaglutide from [facility], down 10 lbs.. 1. Abnormal weight [...] fruits and vegetables. She is seeing the nuclear medicine physician. The patient will treat with long-term lifestyle [...] and weight loss. Monitor. 7. Obstructive sleep apnea/Chapar[place] of 14/a.m. fatigue-treat with CPAP. We will [...] to her next visit. Author Joaquín Maria [facility] Authored October 28, 2023 1:11pm Start [...] it was helpful. Now on Semaglutide from [facility], down 4.4 lbs.. 1. Abnormal weight [...] fruits and vegetables. She is seeing the nuclear medicine physician. The patient will treat with long-term lifestyle [...] and weight loss. Monitor. 7. Obstructive sleep apnea/Chapar[place] of 14/a.m. fatigue-treat with CPAP. 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 [facility] Work Phone: 1(994) 506-850211-12-2024 Evaluation note* Author Joaquín Maria [facility] Authored December 23, 2023 1:15pm Start [...] it was helpful. Now on Semaglutide from [facility], down 10 lbs.. 1. Abnormal weight [...] her house. She does not qualify for [facility] patient assistance. I continue to recommend not skipping meals and following the plate method. She must try to get in more fruits and vegetables. She is seeing the nuclear medicine physician. The patient will treat with long-term lifestyle [...] and weight loss. Monitor. 7. Obstructive sleep apnea/[place]ar[place] of 14/a.m. fatigue-treat with CPAP. We will [...] hemoglobin A1c prior to her next visit. [facility] Work Phone: 1([phone]) 308-821309-17-2024 Evaluation note* Author Meron Mathis [facility] Authored December 23, 2023 11:14am Start [...] it was helpful. Now on Semaglutide from [facility], down 10 lbs.. 1. Abnormal weight [...] her house. She does not qualify for [facility] patient assistance. I continue to recommend not skipping meals and following the plate method. She must try to get in more fruits and vegetables. She is seeing the nuclear medicine physician. The patient will treat with long-term lifestyle [...] and weight loss. Monitor. 7. Obstructive sleep apnea/Chapar[place] of 14/a.m. fatigue-treat with CPAP. 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 Author Joaquín Maria [facility] Authored October 28, 2023 1:11pm Start [...] it was helpful. Now on Semaglutide from [facility], down 4.4 lbs.. 1. Abnormal weight [...] fruits and vegetables. She is seeing the nuclear medicine physician. The patient will treat with long-term lifestyle [...] and weight loss. Monitor. 7. Obstructive sleep apnea/Chapar[place] of 14/a.m. fatigue-treat with CPAP. 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 [facility] Work Phone: 1([phone]) 811-523108-20-2024 NotePt is here for a six month follow up, afib, heart failure, htn, ppm, valve disorder, had a echo last month. Review of Systems Respiratory: Positive for cough. All other systems reviewed and are negative.[facility] 09-30-2023 NoteCardiovascular Medicine [facility] SUBJECTIVE Chief Complaint Patient presents with Atrial Fibrillation Hypertension NSVT Penny Diane is a 72 y.o. female here for follow-up. HPI PMHx: HFrEF d/t dilated cardiomyopathy with recent echo 08/2023 showing recovered EF of 60%, afib s/p PVI ablation 05/2021 + Posterior box isolation+ Ablation of posterior wall on 07/2021, atrial flutter s/p CTI ablation with bidirectional block 07/2021, s/p CLOCK AND WATCH ASSEMBLER-P 01/21/22, AVN ablation 04/22/2022 She has been [...] (CMS/HCC) Presence of cardiac resynchronization therapy pacemaker (CLOCK AND WATCH ASSEMBLER-P) Anxiety Depression Fatty liver Hypercholesterolemia Overweight (BMI [...] QRS DURATION 04/22/2022 128 (more content not included)...[facility]16[facility] Evaluation note* Author Joaquín Maria [facility] Authored August 26, 2023 2:16 pm [...] it was helpful. Now on Semaglutide from [facility], down 9.3 lbs. Has since quit Sema/ [...] fruits and vegetables. She is seeing the nuclear medicine physician. The patient will treat with long- term [...] and weight loss. Monitor. 7. Obstructive sleep apnea/Chapar[place] of 14/a.m. fatigue-treat with CPAP. 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 [facility] Work Phone: 1([phone]) 456-575607-16-2024 Evaluation note* Author Joaquín Maria [facility] Authored August 26, 2023 2:16 pm [...] fruits and vegetables. She is seeing the nuclear medicine physician. The patient will treat with long- term [...] and weight loss. Monitor. 7. Obstructive sleep apnea/Chaparral of 14/a.m. fatigue-treat with CPAP. 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 Author Bryanna Ryder [facility] Authored October 28, 2023 1:48pm Start [...] it was helpful. Now on Semaglutide from [facility], down 4.4 lbs.. 1. Abnormal weight [...] fruits and vegetables. She is seeing the nuclear medicine physician. The patient will treat with long- term [...] and weight loss. Monitor. 7. Obstructive sleep apnea/Chapar[place] of 14/a.m. fatigue-treat with CPAP. 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 [facility] Work Phone: 1(655) 195-564402-07-2024 Telephone encounter Note* Telephone Encounter - Julian Nielsen - 03/19/2023 1:58 PM EST Patient is scheduled. [facility] [id number] Miscellaneous Notes* Telephone Encounter - Julian Nielsen [...] for this patient. Dx: inspire rossy / [facility] INSURANCE: medicare Referral is in [facility] for review. documented in this encounterScotland County Memorial [id number] Evaluation note* Encounter Date Diagnosis Assessment Notes [...] Mar, Metabolic syndrome X (ICD-10 - E88.81) [facility] Other 02-01-2024 Evaluation note* Author Bryanna Ryder [facility] Authored August 26, 2023 1:58 pm [...] it was helpful. Now on Semaglutide from [facility], down 9.3 lbs. Has since quit Sema/ [...] fruits and vegetables. She is seeing the nuclear medicine physician. The patient will treat with long-term lifestyle [...] and weight loss. Monitor. 7. Obstructive sleep apnea/Chaparral of 14/a.m. fatigue-treat with CPAP. 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 [facility] Work Phone: 1([phone]) 693-554101-25-2024 Telephone encounter Note* Telephone Encounter - Julian Nielsen - 03/06/2023 5:59 PM EST (1st call) left voicemail [facility] [id number] Telephone encounter Note* Telephone Encounter - Julian Nielsen - 03/06/2023 5:58 PM EST Images from the original note were not included. Referral approved Calling patient [facility] [id number] Telephone encounter Note* Telephone Encounter - Julian Nielsen - 03/05/2023 5:10 PM EST [facility] received a referral for this patient. Dx: inspire consult / nuria - [facility] INSURANCE: medicare Referral is in [facility] for review. [facility] [id number] Evaluation note* Encounter Date Diagnosis Assessment Notes [...] would need to be undertaken at the mud analysis well logging captain office while heart rhythm and pacing parameters [...] changes in symptoms and/or problems with treatment [facility] Other 10-25-2023 Evaluation note* Encounter Date Diagnosis [...] 1-2 x/week in addition to cardiac rehab [facility] Other 10-12-2023 Evaluation note* Encounter Date Diagnosis [...] Nov, Metabolic syndrome X (ICD-10 - E88.81) [facility] Other 08-08-2023 Evaluation note* Encounter Date Diagnosis [...] Metabolic syndrome X (ICD-10 - E88.81) Not [id number] Evaluation note* Encounter Date Diagnosis Assessment Notes [...] Jul, Metabolic syndrome X (ICD-10 - E88.81) [facility] Other 03-09-2023 Evaluation note* Encounter Date Diagnosis [...] Apr, Metabolic syndrome X (ICD-10 - E88.81) [facility] Other 03-02-2023 Evaluation note* Encounter Date Diagnosis [...] set the following goals: NOT REVIEWED TODAY [facility] Other 12-01-2022 Evaluation note* Encounter Date Diagnosis [...] sister on phone or an audio book [facility] Other 10-25-2022 Evaluation note* Encounter Date Diagnosis [...] Nov, Metabolic syndrome X (ICD-10 - E88.81) [facility] Other 09-29-2022 Evaluation note* Encounter Date Diagnosis [...] Oct, Metabolic syndrome X (ICD-10 - E88.81) [facility] Other 08-18-2022 Evaluation note* Encounter Date Diagnosis [...] Sep, Metabolic syndrome X (ICD-10 - E88.81) [facility] Other 07-07-2022 Evaluation note* Encounter Date Diagnosis [...] sister on phone or an audio book [facility] Other 05-17-2022 Evaluation note* Encounter Date Diagnosis [...] increase protein to about 15 g /meal [facility] Other 04-05-2022 Evaluation note* Encounter Date Diagnosis [...] May, Metabolic syndrome X (ICD-10 - E88.81) [facility] Other 03-10-2022 Evaluation note* Encounter Date Diagnosis [...] w/ zak - NEW: choose healthier snacks [facility] Other 02-28-2022 Evaluation note* Encounter Date Diagnosis [...] Mar, Metabolic syndrome X (ICD-10 - E88.81) [facility] Other Evaluation noteNo InformationNort [facility] Other Evaluation noteNo assessment information available [facility] Work Phone: Evaluation note* Diagnosis Hoarse- [...] Medical History snoring Surgical History gall bladder [facility] Other Hisccxt general Narrative - Reported* Type Description Date Medical History depression Medical History anxiety Medical History high blood pressure Medical History Atrial fibrillation Medical History snoring Medical History sleep apnea Surgical History Screen Tonic bladder [facility] Other Hiszhzm general Narrative - Reported* Type Description Date Medical History depression Medical History anxiety Medical History high blood pressure Medical History Atrial fibrillation Medical History snoring Medical History sleep apnea Medical History CHF Medical History Pacemaker 01-21-2022 Surgical History gall bladder Surgical History Pacemaker Hospitalization History See above [facility] Other Hisglnl general Narrative - Reported* Type Description Date Medical History depression Medical History anxiety Medical History high blood pressure Medical History Atrial fibrillation Medical History snoring Medical History sleep apnea Medical History CHF Medical History Pacemaker 01-21-2022 Medical History Heart ablation Surgical History gall bladder Surgical History Pacemaker Surgical History Heart Ablation [facility] Hospitalization History See above [facility] Other Hospital Discharge instructionsAmbulatory Orders* Referral to ENT Time Frame: 03/04/24, Location: None Selected * AMB Cologuard Time Frame: 03/04/24, Location: Determined By Patient [facility] Work Phone: Hospital Discharge instructions Additional Instructions [...] problems. -Follow up with PCP. -Office number [phone]. [facility] Work Phone: Reason for referral (narrative)No reason for referral information availableS[facility] Work Phone: Summary Purpose Family History Relationship [...] DATE CREATED AUTHOR AUTHOR'S ORGANIZ ATION 09/12/2021 [facility] DATE CREATED AUTHOR AUTHOR'S ORGANIZ ATION 06/23/2022 [facility] DATE CREATED AUTHOR AUTHOR'S ORGANIZ ATION 04/23/2024 [facility] EPIC DATE CREATED AUTHOR AUTHOR'S ORGANIZ ATION 08/13/2024 [facility] DATE CREATED AUTHOR AUTHOR'S ORGANIZ ATION 09/06/2024 [facility] REASON FOR VISIT (unrecogniz ed section [...] Member Role Status Dates Sonia Baig APRN NATURALIST-C Primary Care Provider Active Team Status: Inactive Member Role Status Dates Sonia Baig APRN NATURALIST-C Primary Care Provider Active Start: August 26, 2023 End: August 26, 2023 Joaquín Maria MD Attending Provider Active Start: August 26, 2023 End: August 26, 2023 Team Status: Inactive Member Role Status Dates Sonia Baig APRN NATURALIST-C Primary Care Provider, Attending Provider Active Start: August 28, 2023 End: August 28, 2023 Team Status: Inactive Member Role Status Dates Sonia Baig APRN NATURALIST-C Primary Care Provider Active Start: October [id number] End: October 28, 2023 Joaquín Maria MD Attending Provider Active Start: October 28, 2023 End: October 28, 2023 Team Status: Inactive Member Role Status Dates Sonia Baig APRN NATURALIST-C Primary Care Provider Active Start: December 222023 End: December 23, 2023 Joaquín Maria MD Attending Provider Active Start: December 23, 2023 End: December 23, 2023 Team Status: Inactive Member Role Status Dates Sonia Baig APRN NATURALIST-C Primary Care Provider, Attending Provider Active Start: December 30, 2023 End: December 30, 2023 Team Status: Active Member Role Status Dates Sonia Baig APRN NATURALIST-C Primary Care Provider Active Start: February Joaquín Maria MD Attending Provider Active Start: March 04, 2024 Team Status: Inactive Member Role Status Dates Sonia Baig APRN NATURALIST-C Primary Care Provider, Attending Provider Active Start: March 04, 2024 End: March 04, 2024 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 Specialty Start Date End Date Sonia Baig NP [address] [place] [address] PCP - General Family Medicine 03/24/24 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 Specialty Start Date End Date Sonia Baig NP [address] [place] [address] PCP - General Family Medicine 03/24/24 Team Status: Inactive Member Role Status Dates Sonia Baig APRN NATURALIST-C Primary Care Provider Active Start: February End: March 09, 2024 Joaquín Maria MD Attending Provider Active Start: March 09, 2024 End: March 09, 2024 Team Status: Inactive Member Role Status Dates Sonia Baig APRN NATURALIST-C Primary Care Provider, Attending Provider Active Start: April 13, 2024 End: April 13, 2024 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 Start Date End Date Sonia Baig NP [address] [facility] [place] [address] PCP - General Family Medicine 03/24/24 Team Status: Inactive Member Role Status Dates Sonia Baig APRN NATURALIST-C Primary Care Provider Active Start: May 04, 2024 End: May 04, 2024 Joaquín Maria MD Attending Provider Active Start: May 04, 2024 End: May 04, 2024 Team Status: Inactive Member Role Status Dates Sonia Baig APRN NATURALIST-C Primary Care Provider Active Start: May 12, 2024 End: May 12, 2024 Viri Toscano MD Attending Provider Active Start: May 12, 2024 End: May 12, 2024 Team Status: Active Member Role Status Dates Sonia Baig APRN NATURALIST-C Primary Care Provider Active Start: June 14, 2024 Sonia Baig APRN NATURALIST-C Attending Provider Act joseph Start: June 14, 2024 Team Status: Active Member Role Status Dates Sonia Baig APRN NATURALIST-C Primary Care Provider Active Start: June 23, 2024 Darius Veronica NATURALIST-C Attending Provider Active S tart: June 23, 2024 Team Status: Inactive Member Role Status Dates Sonia Baig APRN NATURALIST-C Primary Care Provider Active Start: June 29, 2024 End: June 29, 2024 Joaquín Maria MD Attending Provider Active Start: June 29, 2024 End: June 29, 2024 Team Status: Active Member Role Status Dates Sonia Baig APRN NATURALIST-C Primary Care Provider Active Start: August 04, 2024 Viri Toscano MD Attending Provider Active Start: August 04, 2024 Viri Toscano MD Other Provider Active Start: Jul Team Status: Inactive Member Role Status Dates Sonia Baig APRN NATURALIST-C Primary Care Provider Active Start: September 09, 2024 End: September 09, [address] Attending Provider Active S tart: September 09, 2024 End: September 09, 2024 Team Status: Inactive Member Role Status Dates Sonia Baig APRN NATURALIST-C Primary Care Provider Active Start: September 10, 2024 End: September 10, 2024 Sonia Baig APRN NATURALISTEvans Attending Provider Act joseph Start: September 10, 2024 End: September 10, 2024 Team Status: Inactive Member Role Status Dates Sonia Baig APRN NATURALIST-Doug Primary Care Provider Active Start: September 14, [...] BE BASED ON THE PRIMARY CLINICAL RECORDS. [facility]. provides no warranty or guarantee of the accuracy or completeness of information in this document.
--- NOTE | 2024-10-07 13:28 | MM_ITS ---
Patient Name: LEO DIANE MR#: [id number] : 1950 Exam Date: 10/07/2024 Ordering Doctor: ENMANUEL [employer] RADIOLOGY REPORT PROCEDURE: MM TOMOSYNTHESIS SCREENING BI COMPARISON: MM TOMOSYNTHESIS SCREENING BI, 09/04/2023. INDICATIONS: screening Calculator Name NCI Breast Cancer Risk Assessment Tool 5 Year Breast Cancer Risk 2.00% Lifetime Breast Cancer Risk 4.50% Personal Breast Cancer No Personal Ovarian Cancer No Treatments None Family Cancers Sister with lung cancer at age 72; Mother with lymph cancer at age 70. LOCATION: [facility] BREAST COMPOSITION: There are scattered areas of fibroglandular density. FINDINGS: RIGHT BREAST: No significant suspicious finding. LEFT BREAST: No significant suspicious finding. DIAGNOSTIC CATEGORY 1--NEGATIVE. RECOMMENDATIONS: ROUTINE MAMMOGRAM AND CLINICAL EVALUATION IN 12 MONTHS. Dictated by: Bryon Shin DO on 10/07/2024 at 16:21 Approved by: Bryon Shin DO on 10/07/2024 at 16:23
== END 2024-10-07 13:19 | disposition home or self-care (01) ==
LOC: MAMMO 13:18
PROVIDERS: PCP Nurse Practitioner Family; Visit Provider Nurse Practitioner Family
DX: Z12.31 Encounter for screening mammogram for malignant neoplasm of breast (principal); Z80.1 Family history of malignant neoplasm of trachea, bronchus and lung; Z80.8 Family history of malignant neoplasm of other organs or systems
CPT/HCPCS: 77063; 77067